=== PATIENT | female | born 1970 | race Caucasian/White ===

== ENCOUNTER → 2017-10-14 09:25 | Outpatient (CLI) | payer OTHER, MEDICAID, SELFPAY ==
[2017-10-10 12:55] VITALS: BMI 34.3
--- NOTE | 2017-10-14 09:00 | PET_ITS ---
EXAMINATION: FDG PET CT INDICATIONS: A 46-year-old female with reported history of head and neck carcinoma presenting for initial staging examination. COMPARISON EXAMINATION: None available. INDEX LESION SIZE SUV INTERPRETATION Posterior aspect oral cavity, pharyngeal mucosal space-hypopharynx 43.3 mm x 22.1 (frame 280) 9.1 Fulfills quantitative criteria for viable neoplasm Right lateral neck level II A-II B 29.9 mm largest (frame 281) 5.3 (max) Fulfills quantitative criteria for viable neoplasm TECHNIQUE: Following the intravenous administration of 16.9 mCi of F-18 deoxyglucose via the right antecubital fossa, multiplanar image acquisitions of the neck, chest, abdomen and pelvis to level of mid thigh, obtained at one hour post radiopharmaceutical administration contemporaneously interpreted with the current CT of the neck, chest, abdomen and pelvis to level of mid thigh, dated 10/14/17 via coregistration reveal: SERUM GLUCOSE LEVEL: 89 mg/dl. HEIGHT: 62 inches. WEIGHT: 187 lbs. FINDINGS: 1. Increased glucose metabolism is defined in the oral cavity contiguous to the tongue base, pharyngeal mucosal space extending caudal to the level of the hypopharynx, vallecula. The calculated maximum standard uptake value is 9.1. The maximal axial diameter of corresponding metabolic, morphologic abnormality on review of CT of the head and neck dated 10/14/17 is 43.3 mm (transverse) x 22.1 (AP). 2. Asymmetric increased glucose concentration is observed in the right lateral neck involving level II A-II B. The calculated maximum standard uptake value is 5.3. A component of central photopenia is noted consistent with necrotic change. The maximal axial diameter of the largest metabolic, morphologic abnormality on review of CT of the neck dated 10/14/17 is 29.9 mm (AP). 3. Normal physiologic distribution of the radiopharmaceutical is apparent in the hepatic (3.4) and splenic parenchyma, both renal units, bladder and visualized intestinal tract. There is uniform distribution of the radiopharmaceutical concentration compared on the cerebellar hemispheres and cerebral cortex. Diffuse intestinal tract activity is noted throughout all four quadrants of the abdominal-pelvic retroperitoneum, mesentery consistent with normal physiologic distribution of the radiopharmaceutical. Pertinent CT findings are as follows. CHEST: Bilateral subcentimeter axillary soft tissue densities with fatty hilus formation are non-glucose avid. There are no parenchymal densities-nodules demonstrated in the right-left hemithorax manifesting quantitatively significant increased glucose metabolism. ABDOMEN AND PELVIS: The gallbladder is surgically absent. Right-left inguinal soft tissue densities with fatty hilus formation are ametabolic. The uterus appears surgically absent. Colonic diverticulosis is defined. SKELETAL: Degenerative changes defined in the cervical, thoracic and lumbar spine demonstrate no evidence for glucose hypermetabolism. PET/PET/CT Tumor Base -Thigh Init IMPRESSION: 1. ABNORMAL EXAMINATION INDICATIVE OF MALIGNANT VIABLE NEOPLASM. 2. Increased glucose concentration defined in the posterior aspect of the oral cavity, the pharyngeal mucosal space, tongue base extending to the hypopharynx fulfills quantitative criteria for viable neoplasm. 3. Enhanced glucose concentration observed in the right lateral neck fulfills quantitative criteria for viable neoplasm. 4. No other quantitatively significant hypermetabolic abnormalities are noted. There is no definitive scintigraphic evidence of distant metastatic disease. Electronic Signature Pedro Luis Carrizales D.O. Electronically Signed: Pedro Luis Carrizales DO at 23:17 EDT Tel , Service support ,
== END ==
PROVIDERS: Family Provider Family Medicine; PCP Family Medicine; Visit Provider Internal Medicine Hematology & Oncology
DX: C01 Malignant neoplasm of base of tongue (principal); C77.9 Secondary and unspecified malignant neoplasm of lymph node, unspecified
CPT/HCPCS: 36415; 77280; 77290; 77300; 77301; 77338; 78815; 80053; 85025; A9552; Q9967; A4216

== ENCOUNTER 2017-10-18 11:13 | Day surgery (SDC) | payer OTHER, MEDICAID, SELFPAY ==
[2017-10-10 12:55] VITALS: BMI 34.3
[2017-10-18] VITALS (10 sets, daily range): BP systolic 86–103; BP diastolic 44–72; PULSE 65–76; RESP 16; TEMP 36.2–36.6; O2SAT 97–98; BMI 34.4
[2017-10-18] MEDS: Cefazolin 2 GM in 0.9% Normal Saline 100 ML IV (12:55)
[2017-10-18] MEDS: Bupivacaine Mpf 0.5% 30 ML VIAL (13:10)
--- NOTE | 2017-10-18 14:12 | RAD_ITS ---
STUDY: X-RAY CHEST REASON FOR EXAM: Female, 47 years old. Port placement. TECHNIQUE: Single AP portable view of the chest. COMPARISON: None. FINDINGS: A left-sided portacatheter has been placed. Tip is at the midportion of the superior vena cava. EKG electrodes are seen. The lungs are clear and expanded. There is no demonstrated pleural abnormality. Normal size heart. Normal mediastinum and kaveh. Normal visualized pulmonary arteries. Normal visualized aortic arch and descending thoracic aorta. Normal visualized thoracic spine. Normal visualized ribs, clavicles, and shoulders. There is no demonstrated abnormality of the visualized soft tissue structures of the upper abdomen. RAD/CXR for Line Placement IMPRESSION: The tip of the left portacatheter is in the midportion of the superior vena cava. There is no evidence of pneumothorax. Electronically Signed: Ricky Martell MD at 15:18 EDT Tel [phone], Service support ,
--- NOTE | 2017-10-18 14:58 | PCM.OPRPT ---
Problem List (1) Encounter for adjustment or management of vascular access device Status: Acute (2) Tongue cancer Status: Acute Comment: HPV + Report of Operation Date of Procedure: 10/18/17 Pre-Operative Diagnosis: Need for vascular access for chemotherapy Post-Operative Diagnosis: Same Surgery/Procedure Performed:: Left chest port placement utilizing left IJ, ultrasound and fluoroscopy-guided Description of Procedure: After obtaining informed consent patient was brought back to the operating room MAC anesthesia was induced and the left chest and neck were prepped in normal sterile fashion. Ultrasound was used to evaluate both IJ is in the left IJ was selected. Next, using a needle, the left IJ was accessed and a guidewire was passed on into the superior vena cava under fluoroscopy guidance. A small incision was made over the puncture site and the dilator introducer was placed over the guidewire. Next this was capped and the pocket was made for the port. 1% lidocaine with epinephrine was injected in the proposed port site. An incision was made with scalpel. Electrocautery was used to make a pocket under the skin and subcutaneous tissue. Hemostasis was obtained. Next, the catheter was tunneled up to the neck incision site and placed through the introducer. The peel-away introducer was removed and the position of the catheter was confirmed on fluoroscopy. Next, the catheter was trimmed and attached to the port with the locking device. Interrupted 2-0 PDS were used to anchor the port to the chest wall and then the port was placed inside the pocket. The pocket was then flushed with saline and the port irrigated with saline. There was good blood return and the port flushed easily. Next, heparin was injected into the port. The skin was closed with subcutaneous interrupted 3-0 Vicryl sutures and interrupted skin 3-0 nylon sutures. A single 3-0 Vicryl sutures placed under the skin at the neck incision site. Steri-Strips were placed as well as op sites. Patient tolerated procedure well, was taken to PACU in stable condition. Chest x-ray will be obtained. Grafts/Implants Used: 8 [place] [employer] - Admit VTE Documentation VTE Mechan Device Prophylaxis: SCD's
--- NOTE | 2017-10-18 15:01 | DCINST_ITS ---
Discharge Diet: No Restrictions - Pain medication may cause nausea. You should typically eat light foods as you take your pain medication. Discharge Activity: Return to Normal Activity, May Shower - with your bandage in place in 1-2 days after surgery. DO NOT SHOWER WHEN YOUR PORT IS ACCESSED. Call your doctor if your incision/area has: Continuous Slow Oozing, Sudden Increased Bleeding, Increased Pain/ Swelling, Increased Redness Call your doctor if you observe: Fever of 101 or Higher Remove Dressing in (days):: 3 - When you remove the bandage, leave the steri- strips intact until they fall off. Allergies/Adverse Reactions: Allergies No Known Allergies Allergy (Verified 10/18/17 11:37) Medications to take at Discharge Levothyroxine [Synthroid] 50 mcg PO DAILY 10/07/17 Varenicline [Chantix] 1 mg PO DAILY 10/07/17 Dexamethasone 4 mg PO DAILY 10 Days #10 tablet 10/14/17 Olanzapine [Zyprexa] 10 mg PO DAILY 15 Days #15 tab 10/14/17 Primary Care Physician: David Abbott [Primary Care Provider] - Please Follow Up With: Judd Concepcion MD When: Please call to schedule 7-10 day follow up appointment. [phone]
== END 2017-10-18 15:26 | disposition home or self-care (01) ==
LOC: SDC 11:15 → AC 11:17
PROVIDERS: Family Provider Family Medicine; PCP Family Medicine; Visit Provider Surgery
PROC: (CPT 36561; principal; 2017-10-18 12:45)
DX: Z45.2 Encounter for adjustment and management of vascular access device (principal); C01 Malignant neoplasm of base of tongue; R22.1 Localized swelling, mass and lump, neck; E06.9 Thyroiditis, unspecified; Z93.1 Gastrostomy status; Z79.899 Other long term (current) drug therapy; Z87.891 Personal history of nicotine dependence
CPT/HCPCS: 00532; 36561; 71045; 77001; J7120; C1788; J2405

== ENCOUNTER 2017-10-24 13:40 | Outpatient (RCR) | payer OTHER, MEDICAID, SELFPAY ==
[2017-10-10 12:55] VITALS: BMI 34.3
== END 2017-10-24 23:59 ==
LOC: NS 13:40
PROVIDERS: Family Provider Family Medicine; PCP Family Medicine; Visit Provider Internal Medicine Hematology & Oncology
DX: C02.9 Malignant neoplasm of tongue, unspecified (principal); Z43.1 Encounter for attention to gastrostomy; Z71.3 Dietary counseling and surveillance
CPT/HCPCS: 97802

== ENCOUNTER 2017-11-15 10:54 | Outpatient (RCR) | payer MEDICAID, OTHER, SELFPAY ==
[2017-10-10 12:55] VITALS: BMI 34.3
== END 2017-11-23 23:59 ==
LOC: NS 10:54
PROVIDERS: Family Provider Family Medicine; PCP Family Medicine; Visit Provider Internal Medicine Hematology & Oncology
DX: C02.9 Malignant neoplasm of tongue, unspecified (principal); Z43.1 Encounter for attention to gastrostomy; Z71.3 Dietary counseling and surveillance
CPT/HCPCS: 97803

== ENCOUNTER 2017-12-20 11:00 | Outpatient (RCR) | payer OTHER, MEDICAID, SELFPAY ==
[2017-10-10 12:55] VITALS: BMI 34.3
== END 2017-12-24 23:59 | disposition home or self-care (01) ==
LOC: NS 11:00
PROVIDERS: Family Provider Family Medicine; PCP Family Medicine; Visit Provider Internal Medicine Hematology & Oncology
DX: C02.9 Malignant neoplasm of tongue, unspecified (principal); Z43.1 Encounter for attention to gastrostomy; Z71.3 Dietary counseling and surveillance
CPT/HCPCS: 77336; 77386; 97803

== ENCOUNTER 2018-01-17 10:00 | Outpatient (RCR) | payer OTHER, MEDICAID, SELFPAY ==
[2017-10-10 12:55] VITALS: BMI 34.3
== END 2018-01-17 11:22 ==
LOC: NS 10:00
PROVIDERS: Family Provider Family Medicine; PCP Family Medicine; Visit Provider Internal Medicine Hematology & Oncology
DX: C02.9 Malignant neoplasm of tongue, unspecified (principal); Z43.1 Encounter for attention to gastrostomy; Z71.3 Dietary counseling and surveillance
CPT/HCPCS: 97803

== ENCOUNTER → 2018-05-21 12:50 | Outpatient (CLI) | payer MEDICAID, SELFPAY ==
[2017-10-10 12:55] VITALS: BMI 34.3
[2018-04-09 15:08] VITALS: BMI 30.1
--- NOTE | 2018-05-21 12:45 | SP.MBSS_ITS ---
PRIMARY / SECONDARY DIAGNOSIS: dysphagia (R13.10) REFERRING PHYSICIAN: Dr. 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 every 3 weeks, switched to weekly carboplatin and paclitaxel for cycle 2 due to tinnitus). 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 This study was recorded in the lateral view and images were sent to PACs for storage. The following consistencies were presented to this patient for analysis of oropharyngeal swallow function: thin liquids, pudding, and a regular textured, Michelle Doone cookie. Results of the MBS are as follows: PENETRATION / ASPIRATION SCALE (GAVIRIA): 1 = does not enter airway 2 = enters airway/above vocal folds/ejected 3 = enters airway/above vocal folds/not ejected 4 = enters airway/contacts vocal folds/ejected 5 = enters airway/contacts vocal folds/not ejected 6 = enters airway/below vocal folds/ejected 7 = enters airway/below vocal folds/not ejected despite effort 8 = enters airway/below vocal folds/no effort PENETRATION / ASPIRATION SCALE (SCORE) WITH VIDEOFLOROSCOPIC SCALE SCORE: Thin liquid - 5 mL tsp.: 1 Thin liquids via cup (single sip): 1 Thin liquids via cup (single sip): 1 Thin liquids via cup (single sip): 1 Thin liquids via straw (single sip): 1 Thin liquids via straw (sequential swallows): 4 Pudding via spoon: 1 Regular textured cookie: 1 Thin liquids via straw (single sip chaser): 1 Thin liquids via straw (single sip chaser): 1 Thin liquids via straw (single sip chaser): 1 Thin liquids via straw (single sip): 1 IMPRESSION: DIAGNOSIS: mild oropharyngeal dysphagia (R13.12) Dysphagia Severity Ratings Scale: 2 (mild) DIGEST Grade: 1 DIGEST Safety Grade: 0 DIGEST Efficiency Grade: 1 ORAL PHASE CHARACTERIZED BY: LABIAL SEAL: no labial escape TONGUE CONTROL DURING BOLUS MANIPULATION: cohesive bolus between tongue to palatal seal BOLUS PREPARATION / MASTICATION: slow prolonged chewing/mashing with complete recollection BOLUS TRANSPORT / LINGUAL MOTION: brisk tongue motion ORAL RESIDUE: trace residue lining oral structures PHARYNGEAL PHASE CHARACTERIZED BY: INITIATION OF PHARYNGEAL SWALLOW: bolus head at posterior laryngeal surface of epiglottis at first hyoid excursion SOFT PALATE ELEVATION: trace column of contrast/air between soft palate and pharyngeal wall LARYNGEAL ELEVATION: partial superior movement of thyroid cartilage/partial approximation of arytenoids cartilage to epiglottic petiole ANTERIOR HYOID EXCURSION: partial anterior movement EPIGLOTTIC MOVEMENT: partial epiglottic inversion LARYNGEAL VESTIBULE CLOSURE AT HEIGHT OF SWALLOW: complete laryngeal vestibule closure with no air/contrast in laryngeal vestibule PHARYNGEAL STRIPPING WAVE: pharyngeal stripping wave present / diminished PHARYNGOESOPHAGEAL SEGMENT OPENING: partial distension and partial duration; partial obstruction of flow TONGUE BASE RETRACTION: narrow column of contrast between tongue base and posterior pharyngeal wall PHARYNGEAL RESIDUE: collection of residue within or on pharyngeal structures ESOPHAGEAL PHASE CHARACTERIZED BY: ESOPHAGEAL BOLUS CLEARANCE IN THE UPRIGHT POSITION: complete clearance; esophageal coating EFFECTS OF TREATMENT STRATEGIES ATTEMPTED: Liquid chaser = effective Reduced bolus size = effective Reduced rate of intake = effective DIET TEXTURE RECOMMENDATIONS: Will recommend a regular / soft textured, thin liquid diet. COMPENSATORY STRATEGIES RECOMMENDED: Reduced bolus volume, reduced rate of intake, moisture with all solid textures, alternate bites and sips at reasonable intervals, seated upright at 90 degrees during PO intake, remain upright for 30-60 minutes post meal (GERD precaution), medications one at a time with liquid chaser. 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 Oral preparatory phase marked by prolonged mastication associated with edentulous status and reported intraoral pain attributed to suspected ulcerations; adequate bolus containment. Oral transitional phase was overall unremarkable, with sufficient bolus collection and transportation, no issues with posterior bolus loss / containment. Pharyngeal phase marked by mild to moderate impairments in pharyngeal swallow onset timing / synchrony coupled with mild reductions in laryngeal vestibule closure and pharyngeal motility contributing to prandial penetration with ejection during sequential ingestion of thin liquids; noted velopharyngeal insufficiency with contrast nearing the nasal cavity. All deficits ameliorated with bolus volume / rate adjustments. RECOMMENDATIONS: The Patient is at higher risk for continual changes and possible decline swallow functioning post chemoradiation. Would consider annual re-assessments under fluoroscopy with similar standardized interpretive measures to assess for continual post irradiation changes to the swallow mechanism, with therapeutic and dietary adjustments as clinically indicated. The Patient requires continued skilled speech-language intervention targeting diet texture management and training / implementation of recommended compensatory strategies; training and implementation of a home based swallowing exercise program to promote the highest level of preserved post-irradiation swallow functioning; training and implementation of a home oral care protocol to reduce the effects of xerostomia and improve / maintain the integrity of the oral mucosa reducing the risk of aspiration related pulmonary complications; and Patient / caregiver education regarding kiah and post-irradiation dysphagia and associated symptomology. ADDITIONAL COMMENTS/RECOMMENDATIONS: Results and recommendations were discussed with the Patient immediately following MBS completion, with the Patient verbalizing understanding and agreement with all recommendations and education provided. IMAGE COUNT: [id number] G-CODES: SWALLOWING [id number] Current Status: CJ SWALLOWING G8997 Goal Status: CI SWALLOWING G8998 Discharge Status: SHANTANU Andersen M.A., [facility]-[employer] DES[employer] [facility] Speech-Language Pathology Department [email or web address]
--- NOTE | 2018-05-21 12:52 | RAD_ITS ---
STUDY: SWALLOWING STUDY REASON FOR EXAM: Female, 47 years old. TECHNIQUE: The examination was performed with Speech Pathology in attendance. Under fluoroscopic observation, the patient ingested thin barium, thick barium, barium pudding, and barium coated cracker. FLUOROSCOPY TIME: 1:39 minutes/seconds RADIOLOGIST INVOLVEMENT: COMPARISON: None. FINDINGS: Trialed thin Liquids, pudding, regular textures. Transient penetration with sequential swallows of thin liquids and evaluated with bolus volume/rate reduction. No further penetration or aspiration noted. comment by Scott Casey [phone] personal cell:[phone] RAD/Swallowing Function w/Video IMPRESSION: Normal tailored barium swallow study. No evidence of increased risk for aspiration. The swallow study findings were discussed with the patient by the speech pathologist at the conclusion of the examination. Please see speech pathology report for more information and recommendations. Electronically Signed: Yves Jaramillo, at 16:47 EST Tel , Service support ,
== END ==
PROVIDERS: Family Provider Family Medicine; PCP Family Medicine; Referring Provider Student in an Organized Health Care Education/Training Program; Visit Provider Student in an Organized Health Care Education/Training Program
DX: R13.12 Dysphagia, oropharyngeal phase (principal); C02.9 Malignant neoplasm of tongue, unspecified
CPT/HCPCS: 74230; 92610; 92611

== ENCOUNTER 2018-07-09 14:00 | Outpatient (RCR) | payer MEDICAID, SELFPAY ==
[2017-10-10 12:55] VITALS: BMI 34.3
[2018-04-09 15:08] VITALS: BMI 30.1
--- NOTE | 2018-05-21 14:15 | SOAP_ITS ---
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 every 3 weeks, switched to weekly carboplatin and paclitaxel for cycle 2 due to tinnitus). The Patient reports initial weight loss ( weight 190lbs; 01/17/2018 weight 177.6lbs, 04/09/2018 weight 164 lbs.; 7.5% loss since December, ~14% loss overall per records), with the Patient initially depending on alternative supplementation via percutaneous endoscopic gastrostomy (PEG) tube (placed 10/04/2017; since removed) and PO caloric supplementation. She reports persistent hypogeusia / dysgeusia (Scale of Subjective Total Taste Acuity Grade I-II), with improving xerostomia (Grade I per RTOG Radiation Morbidity Scoring Criteria). The Patient reports increasing intraoral pain particularly towards the posterior portions of the oral cavity with suspected ulcerations that are currently at a 10/10 pain scale, reports she has not contacted the physician?s office due to her holiday schedule / anticipated physician?s office schedule; she reports dedicated oral care with oral rinses as recommended. Odynophagia has almost completely resolved, with occasional tolerable pain (no further specification). No changes in appetite reported, denies early satiety, nausea, or bouts of emesis. The Patient denies any coughing or throat clearing during PO intake, though does report intermittent coughing with phlegm production aside from PO intake, with intermittent sensations of food getting ?stuck?, though this improves with a liquid wash. The Patient later reports intermittent rhinorrhea during / following intake with occasional sensations of nasoregurgitation. 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 The Patient appears cognitively intact, with no reported cognitive based complications (does report mild impairments during chemotherapy interventions which have subsided as expected). The Patient?s vocal quality is clearly impaired, with the Patient reporting almost complete aphonia particularly upon waking which somewhat improves throughout the day; overall the Patient reports reductions in vocal quality post irradiation. PREVIOUS MODIFIED BARIUM SWALLOW STUDY: 05/21/2018 MBS revealed mild oropharyngeal dysphagia (DIGEST Grade 1) with transient penetration of thin liquids during sequential ingestion. 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 Edentulous status, reports no prior use of dentures. Oral mucosa moist pinkish appearance with reported persistent xerostomia. Slight whitish coating along the lingual blade with reported right lingual pain, small painful ulceration on the left mandibular arch, questionable left sublingual ulceration (reported significant pain at location). Mild reduction in cough intensity. Horse / breathy vocal quality with alternating aphonia / dysphonia with tension. SUPPLEMENTARY DYSPHAGIA ASSESSMENT RESULTS: Malnutrition Screening Tool (MST): 2 (at risk) Reflux Symptom Index (RSI): 28 (RSI > 13 may be indicative of significant reflux) Sialorrhea Scoring Scale (SSS): 1/9 (dry, never drools) [facility] Xerostomia Questionnaire: 68/80* Functional Assessment of Cancer Therapy ? Head & Neck (FACT H&N): 84* Physical Well-Bein Social / Family Well- Bein Emotional Well-Bein Functional Well-Bein Additional Concerns: 22 Functional Assessment of Cancer Therapy ? Cognitive Function (FACT-Cog): 35* Perceived Cognitive Impairments: 17 Comments from Others: 4 Perceived Cognitive Abilities: 8 Impact on Quality of Life: 6 MD Terell Dysphagia Inventory (MDADI): Global: 62/100* Physical: 24/40 Emotional: 19/30 Functional: 19/25 *higher scores represent greater degree of symptoms CLINICAL ASSESSMENT OF SWALLOW FUNCTION (STRUCTURED): Total Dysphagia Risk Score (TDRS): 34 ? High risk (TDRS > 18) Venegas Assessment of Swallowing Ability ? Cancer (MASA-C): 168 (Moderate) Venegas Assessment of Swallowing Ability ? Cancer (MASA-C) Risk Rating: Probable Performance Status Scale for Head and Neck Cancer Patients (PSS-HN): 150/300 Normalcy of Diet: 50 (soft, chewable foods) Public Eatin (Eats only at home in presence of selected persons) Understandability of Speech: 75 (Understandable; occasional repetition) Swallowing Performance Scale (PSP): 3 - mild CLINICAL ASSESSMENT OF SWALLOW FUNCTION (SUBJECTIVE): ORAL PREPARATORY PHASE: oral preparatory phase marked by prolonged mastication associated with edentulous status and reported intraoral pain attributed to suspected ulcerations; adequate bolus containment. ORAL TRANSITIONAL PHASE: oral transitional phase appears unremarkable; no signs of bolus consolidation impairments or transitional incompetence; no signs or symptoms of premature posterior bolus loss. PHARYNGEAL PHASE: pharyngeal phase marked by mild reduction in reduced hyolaryngeal excursion upon digital palpation suggestive of suboptimal laryngeal vestibule closure / pressure / duration; reported intermittent nasal reflux (not during assessment) with intermittent rhinorrhea during ingestion; no overt signs or symptoms of penetration / aspiration. ESOPHAGEAL PHASE: esophageal phase appears unremarkable, though noted high RSI score reported (28) COMPLICATING FACTORS: the Patient reports intermittent aerophagia, though this may be associated with mild velopharyngeal insufficiency with intermittent nasoregurgitation identified under fluoroscopy. 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 RECOMMENDATIONS: The patient is at higher risk for continual changes and possible decline swallow functioning post chemoradiation. Would consider annual re-assessments under fluoroscopy with similar standardized interpretive measures to assess for continual post irradiation changes to the swallow mechanism, with therapeutic and dietary adjustments as clinically indicated. The Patient requires continued skilled speech-language intervention targeting diet texture management and training / implementation of recommended compensatory strategies; training and implementation of a home based swallowing exercise program to promote the highest level of preserved post-irradiation swallow functioning; training and implementation of a home oral care protocol to reduce the effects of xerostomia and improve / maintain the integrity of the oral mucosa reducing the risk of aspiration related pulmonary complications; and Patient / caregiver education regarding kiah and post-irradiation dysphagia and associated symptomology. DIET TEXTURE RECOMMENDATIONS: Will recommend a regular / soft textured, thin liquid diet w/ the following recommended aspiration precautions in place: reduced bolus volume, reduced rate of intake, moisture with all solid textures, alternate bites and sips at reasonable intervals, seated upright at 90 degrees during PO intake, remain upright for 30-60 minutes post meal (GERD precaution), medications one at a time with liquid chaser. FUNCTIONAL OUTCOMES: OUTCOME 1: The Patient will tolerate the least restrictive means of nutrition to facilitate adequate hydration/nutrition with optimum safety and efficiency of swallowing function during P.O. intake without overt signs and symptoms of aspiration. OUTCOME 2: The Patient will demonstrate and utilize recommended compensatory swallowing techniques to facilitate improved airway protection and decreased risk for aspiration during PO intake, across 2 out of 3 sessions. OUTCOME 3: The Patient will demonstrate and utilize recommended oropharyngeal strengthening exercises to facilitate improved pharyngeal contraction, hyolaryngeal excursion, laryngeal vestibule closure, and velopharyngeal functioning with minimal cueing and prompting provide by the clinician, across 2 out of 3 sessions. OUTCOME 4: goal adjustment as needed G-CODES: SWALLOWING G8996 Current Status: CJ SWALLOWING G8997 Goal Status: EMELIA Andersen M.A., CCC-GLAZE SPRAYER [facility] Speech-Language Pathology Department [email or web address]
--- NOTE | 2018-07-09 16:34 | HP.SP.DC_ITS ---
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 The Patient participated in a modified barium swallow (MBS) study on 05/21/2018, revealing mild oropharyngeal dysphagia (DIGEST Grade 1) with transient penetration of thin liquids during sequential ingestion. The Patient participated in intervention sessions targeting diet texture management and training / implementation of recommended compensatory strategies; training and implementation of a home based swallowing exercise program to promote the highest level of preserved post-irradiation swallow functioning; training and implementation of a home oral care protocol to reduce the effects of xerostomia and improve / maintain the integrity of the oral mucosa reducing the risk of aspiration related pulmonary complications; and Patient / caregiver education regarding kiah and post-irradiation dysphagia and associated symptomology, with all goals achieved. The Patient has returned to a regular textured, thin liquid diet and is currently consuming more complex solids. The Patient has consistently reported excellent adherence to recommended oropharyngeal and velopharyngeal exercises, completing all 3-5x daily, x10-15 each, with excellent comprehension and execution demonstrated in the clinical setting. The Patient has reported intermittent difficulty with attention / working memory; though t his has improved, with limited to no impact on functioning. Would consider the Patient to be at higher risk for continual changes and possible decline in swallow functioning / dysphagia severity post irradiation (late effects of radiation fibrosis can occur upwards of 40 years post treatment); would benefit from continual monitoring and yearly follow up modified barium swallow studies for at least 5 years post irradiation. Will discharge from the skilled speech- language intervention caseload at this time, though would gladly re-initiate intervention as needed moving forward.
--- OUTSIDE RECORDS SUMMARY | 2018-08-20 12:55 | XMS RPT_ITS | Summary of Care ---
:1970 Author Organization [facility] Address [address] [place] [address] Care Team Providers Name Role Phone David Abbott MD Primary Care Provider Kenneth Gaitan MD Unavailable Reason for Visit Reason Comments Hypothyroidism last radiation and chemo treatment in November to throat, no energy always col Restless Leg Syndrome having difficulty sleeping at night Encounter Details Date Type Department Care Team Description 03/11/2018 Office Visit [facility] Primary Kirstie Hines Hypothyroidism (acquired) (Primary Dx); Care Physicians RICCARDO Summers Mass of right side of neck [address] [place] [phone] Allergies No Known Allergiesas of this encounter Medications Prescription Sig. Disp. Refills Start Date End Date Status levothyroxine Take 1 (one) 30 tablet 5 03/05/2018 03/05/2019 Active (SYNTHROID, tablet (50 LEVOTHROID) 50 MCG mcg total) by tabletIndications: mouth once Hypothyroidism daily. (acquired) amoxicillin-clavulan Take 1 tablet 03/11/2018 Discontinued ate (AUGMENTIN) by mouth 3 500-125 mg per (three) times tabletIndications: a day. Mass of right side of neck L acidophil/B Take 1 03/11/2018 Discontinued lactis/B longum capsule by (FLORAJEN3 mouth daily. ORAL)Indications: Mass of right side of neck dexamethasone Take 4 mg by 03/11/2018 Discontinued (DECADRON) 4 MG mouth daily tabletIndications: with for 10 days breakfast. OLANZapine (ZYPREXA) Take 10 mg by 03/11/2018 Discontinued 10 MG mouth tabletIndications: nightly. 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 Recommend making an appointment with Dr. Abbott or myself in a week or two to discuss all of your health issues further. Did not have opportunity to review chart or your history. Mass of right side of neck 09/18/2017 Overview: Necrotic adenopathy biopsied Dr. Gaitan 08/2017 Last Assessment & Plan: Will follow up next week when we receive labs and have more time to review everything. You have a lot of things that need addressed, you have not been seen by Dr. Abbott since you finished treatment. Y ou are having issues with anxiety, depression, RLS, fatigue, blood pressure up and down, and cold intolerance. It is best we have a longer apt scheduled to address these issues. Obesity, Class I, BMI 30-34.9 09/18/2017 Last Assessment & Plan: Calorie counting is the basis for all weight loss. Typically weigh or measure everything that you place in your mouth. Pay attention to those things that you think are free. Include the calories asso ciated with anything you drink as well. Most that you can buy is required by law to have information on it which breaks down the caloric values for serving size. Look at the serving size and then the weight or measure of that serving size is how you calculate the calories. Try to get over half of your daily calories in the first half of the day Need to find the time for exercise. Activity is great but exercise is activity with a heart rate into the target Zone. Consider calorie counting. But weight loss is minimal without exercise since th e body with turn down the BMI or thermostat over time. Exercise allows you to see the benefit of calorie control. Maximum Heart rate or MHR is defined by 220 - age. Then target heart rate or THR is 65-85% of MHR. Need to allow warmup slowly over 5- 10 minute to prevent going too fast to reach THR. Then exercise interval at THR and allow cool down until at least senior care back to the pre exercise hear rate. Therefor if resting heart rate was 70 and your target heart rate was 120. You need to keep moving and wo rk the muscles until you heart rate is below 95 beats per minute. This reduces cramping and the risk of cardiac irritability post exercise. Most weight loss can be obtained best by cycling your calories. By counting the calories and then setting your intake at the minimum needs to maintain your lean body mass you conventional body not to t urn down its basal metabolic rate. 80% or more of your total caloric needs are burned due to your basic metabolic rate. So tell your body that you are are dieting and allowing it to turn down your bas al metabolic rate sabotages your ability to lose weight. The way to do this and still lose weight his first start a diet at your minimum needs calculated by year estimated lean body mass. Then the fir st 4 days of every week set your caloric intake to 300-400 gail per day less. The last 3 days of the week your back to the minimum. This will stop your body from turning down the basal metabolic rate. More than 4 days below the basic minium will have your body trending down how you burn calories. 3500 gail equals 1 pound and 150 gail over 30 days below your needs will result in 1-1/2 pounds per month of weight loss or almost 20 pounds per year. Depression with anxiety IBS (irritable bowel syndrome) Nicotine dependence Last Assessment & Plan: Since chantrix has been effective prior will write for a refill. Social History Tobacco Use Types Packs/Day Years Used Date Former Smoker 1 Smokeless Tobacco: Never Used Alcohol Use Drinks/Week oz/Week Comments Yes Whiskey, occasionally Sex Assigned at Date Recorded Not on file as of this encounter Last Filed Vital Signs Vital Sign Reading Time Taken Blood Pressure 89/62 03/11/2018 2:35 PM EDT Pulse 73 03/11/2018 2:35 PM EDT Temperature 36.8 ??C (98.2 ??F) 03/11/2018 2:35 PM EDT Respiratory Rate 18 03/11/2018 2:35 PM EDT Oxygen Saturation 98% 03/11/2018 2:35 PM EDT Inhaled Oxygen Concentration - - Weight 76.2 kg (168 lb) 03/11/2018 2:35 PM EDT Height 157.5 cm (5' 2) 03/11/2018 2:35 PM EDT Body Mass Index 30.73 03/11/2018 2:35 PM EDT in this encounter Instructions Patient Instructions - Kirstie Hines CNP - 03/11/2018 3:05 PM EDT Formatting of this note may be different from the original. Problem List Items Addressed This Visit Endocrine Hypothyroidism (acquired) - Primary Will order a TSH to see what your thyroid function is and we can refill your medication depending on the results. Recommend making an appointment with Dr. Abbott or myself in a week or two to discussall of your health issues further. Did not have opportunity to review chart or your history. Other Mass of right side of neck Will follow up next week when we receive labs and have more time to review everything. You have alot of things that need addressed, you have not been seen by Dr. Abbott since you finished treatment. You are having issues with anxiety, depression, RLS, fatigue, blood pressure up and down, and cold intolerance. It is best we have a longer apt scheduled to address these issues. in this encounter Progress Notes Kirstie Hines CNP - 03/13/2018 11:29 AM EDTFormatting of this note may be different from the original. Subjective Patient ID: Shahnaz Garnett is a 47 y.o. female. Patient scheduled a MyChart 15 minute visit from home to address her thyroid labs. (showed up on schedule 10 minutes before visit, did not get opportunity to review chart). [place] wanted an order to also have her thyroid levels checked while she was there getting blood drawn. She is not seeing an surfacer for her thyroid management, unsure if she should see a specialist since she has now received neck radiation. While here she states she has also been having problems with an increase in RLS that is keeping her up at night. She finished treatment for tongue CA in November, she received chemo and radiation. Duringthe visit it is obvious she is continuing to have problems speaking and swallowing. She states her feeding tube has been removed and she is slowly starting to eat foods. She states the biggest thing her [place] physician's are monitoring at this time is the sores in her mouth that do not want to heal postradiation. Patient does get tearful while talking about her treatments. She states this really screwed me up and it has been a lot to deal with, she states at times it does not feel real and she is struggling with anxiety and depression. She is also concerned about when she is supposed to go backto work, she has applied for social security and should be getting disability in April. She states her job is bugging her about coming back, she is unsure if she will work again. She is still veryfatigued and is having issues with cold intolerance. The following portions of the patient's history were reviewed and updated as appropriate: allergies,current medications, past family history, past medical history, past social history, past surgical history and problem list. Review of Systems Constitutional: Positive for activity change, appetite change and fatigue. Negative for unexpected weight change. HENT: Positive for mouth sores, trouble swallowing and voice change. Negative for dental problem, facial swelling, sinus pain and sinus pressure. No teeth or dentures Significant scaring to right side of neck from mass removal and radiation to area Eyes: Negative for photophobia and visual disturbance. Respiratory: Negative for cough, chest tightness, shortness of breath and wheezing. Has completely stopped smoking Cardiovascular: Negative for chest pain and palpitations. Gastrointestinal: Negative for abdominal pain, constipation, diarrhea, nausea and vomiting. Endocrine: Positive for cold intolerance. Negative for heat intolerance. Genitourinary: Negative for dysuria, hematuria and urgency. Musculoskeletal: Positive for myalgias, neck pain and neck stiffness. Negative for arthralgias. Skin: Negative. Sallow look to skin Scar to right side of neck Allergic/Immunologic: Positive for immunocompromised state. Neurological: Negative for dizziness, light-headedness and headaches. Psychiatric/Behavioral: Positive for dysphoric mood and sleep disturbance. The patient is nervous/anxious. Objective Physical Exam Constitutional: Vital signs are normal. She appears well-developed and well- nourished. She appears ill. Sallow appearance HENT: Head: Normocephalic. Right Ear: Tympanic membrane and external ear normal. Left Ear: Tympanic membrane and external ear normal. Nose: No mucosal edema or rhinorrhea. Right sinus exhibits no maxillary sinus tenderness and no frontal sinus tenderness. Left sinus exhibits no maxillary sinus tenderness and no frontal sinus tenderness. Mouth/Throat: Uvula is midline and oropharynx is clear and moist. No teeth or dentures Eyes: Pupils are equal, round, and reactive to light. Conjunctivae, EOM and lids are normal. Neck: Trachea normal, normal range of motion and full passive range of motion without pain. Neck supple. Significant scarring to right side of neck, discolored from radiation treatments a few months ago Cardiovascular: Normal rate, regular rhythm, normal heart sounds and normal pulses. No murmur heard. Pulmonary/Chest: Effort normal. She has no decreased breath sounds. She has no wheezes. She has no rhonchi. She has no rales. Abdominal: Soft. Normal appearance and bowel sounds are normal. There is no tenderness. There is no CVA tenderness. No hernia. Neurological: She is alert. She has normal strength. No cranial nerve deficit. She displays a negative Romberg sign. Skin: Skin is warm, dry and intact. No rash noted. Psychiatric: She has a normal mood and affect. Her speech is normal and behavior is normal. Thought content normal. Very pleasant but tearful at times Vitals: 03/11/18 1435 BP: (!) 89/62 BP Location: Left arm Patient Position: Sitting BP Cuff Size: Adult Pulse: 73 Resp: 18 Temp: 98.2 ??F (36.8 ??C) TempSrc: Oral SpO2: 98% Weight: 76.2 kg (168 lb) Height: 5' 2 Body mass index is 30.73 kg/m??. Outpatient Prescriptions Marked as Taking for the 03/11/18 encounter (Office Visit) with Kirstie Hines CNP Medication Sig Dispense Refill ??? levothyroxine (SYNTHROID, LEVOTHROID) 50 MCG tablet Take 1 (one) tablet (50 mcg total) by mouth once daily. 30 tablet 5 No Known Allergies Past Medical History: Diagnosis Date ??? Adverse effect of radiation therapy [facility]/Aura Mattson MD ??? Cancer of base of tongue (HCC) Aura Mattson MD ??? Depression with anxiety 2014 Dr. Hammer ??? Educational circumstance [facility]/Bette Luevano ENTERTAINMENT LAW[employer]ER-C ??? Encounter for adjustment or management of vascular access device [facility]/Bette Chloé ENTERTAINMENT LAWYER-C ??? Encounter for insertion of venous access port 10/14/2017 [facility]/Judd Concepcion MD ??? Fatigue [facility]/Judd Concepcion MD ??? IBS (irritable bowel syndrome) 2000 ??? Mucositis [facility]/Aura Mattson MD ??? Nicotine dependence ??? Pain around PEG tube site ( Acute) [facility]- Michelle Gage PA-C ??? Pre-op examination [facility]/Aura Mattson MD ??? Regional lymph node metastasis present (HCC) [facility]-Michelle Sethi PA-C ??? Squamous cell carcinoma 09/28/2017 DL with Biopsy of BOT Mass-Dr Gaitan ??? [facility] ??? Thyroid disease [facility]/Judd Concepcion MD ??? Tinnitus, right ear [facility]/Aura Mattson MD Chemo/XRT ??? Tongue cancer (HCC) [facility]/Bette JOSEPHC ??? Tongue mass 09/23/2017 Dr Gaitan Acute cancer of the base of tongue Past Surgical History: Procedure Laterality Date ??? CHOLECYSTECTOMY [place] ??? ENDOSCOPY TRIPLE 09/23/2017 & 10/04/2017 [facility]/Judd Concepcion MD Tumor mapping ??? EXCISION LESION HEAD/NECK Right 09/16/2017 [facility]/Kenneth Gaitan MD 4cm ??? HYSTERECTOMY 1995 Has one ovary ??? LARYNGOSCOPY W/ LESION EXCISION Right 09/23/2017 Laryngoscopy with Biopsy of right base of tongue mass ??? NODE BIOPSY NECK 09/16/2017 Dr Gaitan ENT ??? PEG TUBE PLACEMENT 10/04/2017 Dr Pascal ??? PORTACATH PLACEMENT ??? TONGUE BIOPSY 09/26/2017 Dr Gaitan- DL with biopsy of BOT Mass ??? VASCULAR SURGERY Left 2017 Port placement-Left Chest - Dr. Concepcion - [place] Assessment/Plan: Problem List Items Addressed This Visit Endocrine Hypothyroidism (acquired) - Primary Will order a TSH to see what your thyroid function is and we can refill your medication depending on the results. Recommend making an appointment with Dr. Abbott or myself in a week or two to discussall of your health issues further. Did not have opportunity to review chart or your history. Other Mass of right side of neck Will follow up next week when we receive labs and have more time to review everything. You have alot of things that need addressed, you have not been seen by Dr. Abbott since you finished treatment. You are having issues with anxiety, depression, RLS, fatigue, blood pressure up and down, and cold intolerance. It is best we have a longer apt scheduled to address these issues. For any new medications prescribed today, patient was educated about indications for the medication,how to take the medication and potential side effects of the medications.in this encounter Miscellaneous Notes Assessment & Plan Note - Kirstie Hines CNP - 03/11/2018 3:06 PM EDT Associated Problem(s): Mass of right side of neckWill follow up next week when we receive labs and have more time to review everything. You have a lot of things that need addressed, you have not been seen by Dr. Abbott since you finished treatment. You are having issues with anxiety, depression, RLS, fatigue, blood pressure up and down, and cold intolerance. It is best we have a longer apt scheduled to address these issues.Assessment & Plan Note - Kirstie Hines CNP - 03/11/2018 3:03 PM EDTAssociated Problem(s): Hypothyroidism (acquired)Will order a TSH to see what your thyroid function is and we can refill your medication depending onthe results. Recommend making an appointment with Dr. Abbott or myself in a week or two to discuss all of your health issues further. Did not have opportunity to review chart or your history.in this encounter Plan of Treatment Upcoming Encounters Date Type Specialty Care Team Description 03/18/2018 Office Visit Primary Care Daivd Abbott MD [address] [place] [address] [phone] Health Maintenance Due Date Last Done Comments PAP SMEAR 1970 SEQUENTIAL INFLUENZA VACCINE (#1) 2018 09/18/2017 (Declined) TETANUS EVERY 10 YR 09/24/2024 09/24/2014 as of this encounter Visit Diagnoses Diagnosis Hypothyroidism (acquired) - Primary Unspecified hypothyroidism Mass of right side of neck
--- OUTSIDE RECORDS SUMMARY | 2018-08-20 12:56 | XMS RPT_ITS ---
:1970 Author Organization OHIP Support Name Relationship Address Phone JEFFERSON MIGUEL Unavailable [address] + [address] [place] [address] HAKEEM METAL Un[address] + [place] [address] SEFFENS, MIGUEL Unavailable [address] + [address] [place] [address] HAKEEM METAL Un[address] + [place] [address] JEFFERSON, RICKY Unavailable Unavailable + TOWER, SARAH BETH Unavailable Unavailable + CLARENCE GALAN Unavailable Unavailable + SEFFENS, MIGUEL Unavailable [address] + [address] [place] [address] HAKEEM METAL Unavailable [address] + [place] [address] CLARENCE GALAN Unavailable Unavailable + SEFFENS, MIGUEL Unavailable [address] + [address] [place] [address] UE Unavailable Unavailable Unavailable SEFFENS, MIGUEL Unavailable [address] + [address] [place] [address] UE Unavailable Unavailable Unavailable SEFFECHILANGO, RICKY Unavailable Unavailable + TOWER, SARAH BETH Unavailable Unavailable + SEFFECHILANGO, RICKY Unavailable Unavailable + TOWER, SARAH BETH Unavailable Unavailable + ANGELIA, CLARENCE Unavailable Unavailable + ANGELIA, CLARENCE Unavailable Unavailable + SEFFENS, MIGUEL Unavailable [address] + [address] [place] [address] UE Unavailable Unavailable Unavailable ANGELIA, CLARENCE Unavailable Unavailable + SEFFENS, RICKY Unavailable Unavailable + TOWERSARAH BETH Unavailable Unavailable + ANGELIA, CLARENCE Unavailable Unavailable + ANGELIA, CLARENCE Unavailable Unavailable + SEFFENS, MIGUEL Unavailable [address] + [address] [place] [address] UE Unavailable Unavailable Unavailable SEFFENS, RICKY Unavailable Unavailable + TOWERSARAH BETH Unavailable Unavailable + SEFFENS, MIGUEL Unavailable [address] + [address] [place] [address] UE Unavailable Unavailable Unavailable SEFFENS, MIGUEL Unavailable [address] + [address] [place] [address] UE Unavailable Unavailable Unavailable SEFFENS, MIGUEL Unavailable [address] + [address] [place] [address] UE Unavailable Unavailable Unavailable SEFFENS, RICKY Unavailable Unavailable + TOWERSARAH BETH Unavailable Unavailable + ANGELIA CLARENCE Unavailable Unavailable + ANGELIA, CLARENCE Unavailable Unavailable + SEFFENS, MIGUEL Unavailable [address] + [address] [place] [address] UE Unavailable Unavailable Unavailable SEFFENS, MIGUEL Unavailable [address] + [address] [place] [address] UE Unavailable Unavailable Unavailable ANGELIA, CLARENCE Unavailable Unavailable + ANGELIA, CLARENCE Unavailable Unavailable + ANGELIA, CLARENCE Unavailable Unavailable + SEFFENS, MIGUEL Unavailable [address] + [address] [place] [address] UE Unavailable Unavailable Unavailable SEFFENS, MIGUEL Unavailable [address] + [address] [place] [address] UE Unavailable Unavailable Unavailable ANGELIA, CLARENCE Unavailable Unavailable + SEFFENS, MIGUEL Unavailable [address] + [address] [place] [address] UE Unavailable Unavailable Unavailable SEFFENS, MIGUEL Unavailable [address] + [address] [place] [address] UE Unavailable Unavailable Unavailable SEFFENS, MIGUEL Unavailable [address] + [address] [place] [address] UE Unavailable Unavailable Unavailable SEFFENS, MIGUEL Unavailable [address] + [address] [place] [address] UE Unavailable Unavailable Unavailable ANGELIA, CLARENCE Unavailable Unavailable + SEFFENS, MIGUEL Unavailable [address] + [address] [place] [address] UE Unavailable Unavailable Unavailable SEFFENS, MIGUEL Unavailable [address] + [address] [place] [address] UE Unavailable Unavailable Unavailable ANGELIA, CLARENCE Unavailable Unavailable + SERICKY ESPAÑA Unavailable Unavailable + VALERIYSARAH BETH PARIKH Unavailable Unavailable + SEFFENS, MIGUEL Unavailable [address] + [address] [place] [address] UE Unavailable Unavailable Unavailable SEFFENS, IMGUEL Unavailable [address] + [address] [place] [address] UE Unavailable Unavailable Unavailable ANGELIA, CLARENCE Unavailable Unavailable + SEFFENS, MIGUEL Unavailable [address] + [address] [place] [address] UE Unavailable Unavailable Unavailable SEFFENS, MIGUEL Unavailable [address] + [address] [place] [address] UE Unavailable Unavailable Unavailable SEFFENS, MIGUEL Unavailable [address] + [address] [place] [address] UE Unavailable Unavailable Unavailable SEFFENS, MIGUEL Unavailable [address] + [address] [place] [address] UE Unavailable Unavailable Unavailable SEFFENS, MIGUEL Unavailable [address] + [address] [place] [address] UE Unavailable Unavailable Unavailable SEFFENS, MIGUEL Unavailable [address] + [address] [place] [address] UE Unavailable Unavailable Unavailable SEFFENS, MIGUEL Unavailable [address] + [address] [place] [address] UE Unavailable Unavailable Unavailable SEFFENS, MIGUEL Unavailable [address] + [address] [place] [address] UE Unavailable Unavailable Unavailable SEFFENS, MIGUEL Unavailable [address] + [address] [place] [address] UE Unavailable Unavailable Unavailable SEFFENS, MIGUEL Unavailable [address] + [address] [place] [address] UE Unavailable Unavailable Unavailable SEFFENS, MIGUEL Unavailable [address] + [address] [place] [address] UE Unavailable Unavailable Unavailable ANGELIA, CLARENCE Unavailable Unavailable + SEFFENS, RICKY Unavailable Unavailable + TOWER, SARAH BETH Unavailable Unavailable + SEFFENS, MIGUEL Unavailable [address] + [address] [place] [address] UE Unavailable Unavailable Unavailable ANGELIA, CLARENCE Unavailable Unavailable + SEFFENS, MIGUEL Unavailable [address] + [address] [place] [address] UE Unavailable Unavailable Unavailable ANGELIA, CLARENCE Unavailable Unavailable + SEFFENS, MIGUEL Unavailable [address] + [address] [place] [address] UE Unavailable Unavailable Unavailable SEFFENS, RICKY Unavailable Unavailable + TOWER, SARAH BETH Unavailable Unavailable + SEFFENS, MIGUEL Unavailable [address] [facility] [address] + [place] [address] HAKEEM METAL Unavailable [address] + [place] [address] SEMIGUEL ESPAÑA Unavailable [address] + [address] [place] [address] HAKEEM METAL Unavailable [facility] [address] + [place] [address] SEMIGUEL ESPAÑA Unavailable [address] + [address] [place] [address] UE Unavailable Unavailable Unavailable SEESPERANZA ESPAÑABUR Unavailable [address] + [address] [place] [address] UE Unavailable Unavailable Unavailable RICKY PAULINO Unavailable Unavailable + TOWSARAH BETH PARIKH Unavailable Unavailable + JEFFERSONRICKY Unavailable Unavailable + TOWSARAH BETH PARIKH Unavailable Unavailable + JEFFERSON RICKY Unavailable Unavailable + SARAH BETH LAMB Unavailable Unavailable + ANGELIA CLARENCE Unavailable Unavailable + VICTORIANO GARNETT Unavailable [address] + [place] [address] NOT GIVEN Unavailable [address] + [place] [address] ANGELIAAPPLEY Unavailable Unavailable + Care Team Providers Name Role Phone Gloria Goode Attending Unavailable Felisa Abbott Primary Care Unavailable Pierce Pascal Attending Unavailable Pierce Pascal Referring Unavailable Pierce Pascal Attending Unavailable Pierce Pascal Referring Unavailable Pierce Pascal Attending Unavailable Pierce Pascal Referring Unavailable Gloria Goode Attending Unavailable Felisa Abbott Primary Care Unavailable Pierre Millan Referring Unavailable Pierce Pascal Attending Unavailable Felisa Abbott Primary Care Unavailable Felisa Abbott Primary Care Unavailable Gloria Goode Attending Unavailable Pierce Pascal Attending Unavailable Gloria Goode Referring Unavailable Felisa Abbott Primary Care Unavailable Gloria Goode Consulting Unavailable Gloria Goode Attending Unavailable Isckarus, Mansour Referring Unavailable Milena, [facility] Primary Care Unavailable Isckarus, Mansour Consulting Unavailable Pierce Pascal Attending Unavailable Isckarus, Mansour Referring Unavailable Milena, Felisa Primary Care Unavailable Isckarus, Mansour Consulting Unavailable Pierce Pascal Attending Unavailable Isckarus, Mansour Referring Unavailable Milena, Felisa Primary Care Unavailable Isckarus, Mansour Consulting Unavailable Isckarus, Mansour Attending Unavailable Isckarus, Mansour Referring Unavailable Milena, Felisa Primary Care Unavailable Isckarus, Mansour Consulting Unavailable Milena, Felisa Primary Care Unavailable Isckarus, Mansour Attending Unavailable Milena, [facility] Primary Care Unavailable Isckarus, Mansour Attending Unavailable Michelle Sethi PA-C Attending Unavailable Milena, Felisa Referring Unavailable Milena, [facility] Primary Care Unavailable CalabrettaJudd Attending Unavailable Calabretta, Judd Referring Unavailable Milena, [facility] Primary Care Unavailable Calabretta, Judd Consulting Unavailable Isckarus, Mansour Attending Unavailable Isckarus, Mansour Referring Unavailable Milena, [facility] Primary Care Unavailable Isckarus, Mansour Consulting Unavailable YovanyabrettaJudd Attending Unavailable CalabrettaRachaelJudd Referring Unavailable Milena, [facility] Primary Care Unavailable Amber, Bette Attending Unavailable Isckarus, Mansour Referring Unavailable Milena, [facility] Primary Care Unavailable Isckarus, Mansour Consulting Unavailable CalabrettaJudd Attending Unavailable Isckarus, Mansour Referring Unavailable Milena, [facility] Primary Care Unavailable Pierce Pascal Attending Unavailable Isckarus, Mansour Referring Unavailable Milena, [facility] Primary Care Unavailable Isckarus, Mansour Consulting Unavailable Isckarus, Mansour Attending Unavailable Isckarus, Mansour Referring Unavailable Milena, [facility] Primary Care Unavailable Isckarus, Mansour Consulting Unavailable Pierce Pascal Attending Unavailable Pierce Pascal Referring Unavailable Milena, [facility] Primary Care Unavailable Isckarus, Mansour Attending Unavailable Yana, Pierre Referring Unavailable Milena, [facility] Primary Care Unavailable Isckarus, Mansour Consulting Unavailable Pierce Pascal Attending Unavailable Yana, Pierre Referring Unavailable Milena, [facility] Primary Care Unavailable Isckarus, Mansour Consulting Unavailable Isckarus, Mansour Attending Unavailable Yana, Pierre Referring Unavailable Milena, Felisa Primary Care Unavailable Isckarus, Mansour Consulting Unavailable Amber, Bette Attending Unavailable Yana, Pierre Referring Unavailable Milena, [facility] Primary Care Unavailable Isckarus, Mansour Consulting Unavailable Isckarus, Mansour Attending Unavailable Milena, Felisa Primary Care Unavailable Pierce Pascal Attending Unavailable Yana, Pierre Referring Unavailable Milena, Felisa Primary Care Unavailable Isckarus, Mansour Consulting Unavailable Isckarus, Mansour Attending Unavailable Milena, Felisa Primary Care Unavailable Isckarus, Mansour Consulting Unavailable Milena, Felisa Referring Unavailable Pierce Pascal Attending Unavailable Milena, Felisa Primary Care Unavailable Isckarus, Mansour Consulting Unavailable Milena, Felisa Referring Unavailable Milena, Felisa Primary Care Unavailable Isckarus, Mansour Attending Unavailable Isckarus, Mansour Attending Unavailable Isckarus, Mansour Referring Unavailable Milena, Felisa Primary Care Unavailable Isckarus, Mansour Consulting Unavailable Devin, Pierce Attending Unavailable Isckarus, Mansour Referring Unavailable Milena, Felisa Primary Care Unavailable Isckarus, Mansour Consulting Unavailable Isckarus, Mansour Attending Unavailable Isckarus, Mansour Referring Unavailable Milena, Felisa Primary Care Unavailable Isckarus, Mansour Consulting Unavailable Devin, Pierce Attending Unavailable Isckarus, Mansour Referring Unavailable Milena, Felisa Primary Care Unavailable Isckarus, Mansour Consulting Unavailable Devin, Pierce Attending Unavailable Devin, Pierce Referring Unavailable Isckarus, Mansour Attending Unavailable Isckarus, Mansour Referring Unavailable Milena, Felisa Primary Care Unavailable Isckarus, Mansour Consulting Unavailable Isckarus, Mansour Attending Unavailable Isckarus, Mansour Referring Unavailable Milena, Felisa Primary Care Unavailable Isckarus, Mansour Consulting Unavailable Isckarus, Mansour Attending Unavailable Isckarus, Mansour Referring Unavailable Milena, Felisa Primary Care Unavailable Isckarus, Mansour Consulting Unavailable Milena, Dr. Felisa Lindquist Admitting Unavailable Milena, Dr. Felisa Lindquist Attending Unavailable FELISA ABBOTT Attending Unavailable MILENA, FELISA SANTANA Primary Care Unavailable MENDOZA, DAVID Attending Unavailable MILENA, FELISA SANTANA Primary Care Unavailable MENDOZA, DAVID Attending Unavailable MILENA, FELISA SANTANA Primary Care Unavailable MENDOZA, DAVID Attending Unavailable MILENA, FELISA SANTANA Primary Care Unavailable FELISA ABBOTT Attending Unavailable MILENA, [facility] Primary Care Unavailable MENDOZA, DAVID Attending Unavailable MILENA, [facility] Primary Care Unavailable GAVIOTA JAMES Attending Unavailable MILENA, FELISA DILLON Primary Care Unavailable FELISA ABBOTT Attending Unavailable MILENA, FELISA SANTANA Primary Care Unavailable GAVIOTA JAMES Attending Unavailable MILENA, FELISA SANTANA Primary Care Unavailable JARAD MARROQUIN Attending Unavailable MILENA, FELISA SANTANA Primary Care Unavailable GAVIOTA JAMES Attending Unavailable MILENA, FELISA SANTANA Primary Care Unavailable GAVIOTA JAMES Attending Unavailable MILENA, FELISA SANTANA Primary Care Unavailable GAVIOTA JAMES Attending Unavailable MILENA, FELISA SANTANA Primary Care Unavailable MILENA, FELISA SANTANA Attending Unavailable MILENA, FELISA SANTANA Primary Care Unavailable MICHELLE CARRERA Attending Unavailable MILENA, FELISA SANTANA Primary Care Unavailable FELISA MARTELL Attending Unavailable MILENA, FELISA SANTANA Primary Care Unavailable ASHWIN MCGILL Attending Unavailable MILENA, FELISA SANTANA Primary Care Unavailable GAVIOTA JAMES Attending Unavailable MILENA, FELISA SANTANA Primary Care Unavailable MILENA, FELISA DILLON Attending Unavailable MILENA, FELISA SANTANA Primary Care Unavailable MILENA, FELISA DILLON Attending Unavailable MILENA, FELISA SANTANA Primary Care Unavailable MICHELLE CARRERA Attending Unavailable MILENA, [facility] Primary Care Unavailable Sokari, Telemate Admitting Unavailable Sokari, Telemate Attending Unavailable No Doctor Assigned, Nodr Primary Care Unavailable Bitner, Raheem Admitting Unavailable Bitner, Raheem Attending Unavailable No Doctor Assigned, Nodr Primary Care Unavailable Bitner, Raheem Admitting Unavailable Bitner, Raheem Attending Unavailable No Doctor Assigned, Nodr Primary Care Unavailable Bitner, Raheem Admitting Unavailable Bitner, Raheem Attending Unavailable No Doctor Assigned, Nodr Primary Care Unavailable Bitner, Raheem Admitting Unavailable Bitner, Raheem Attending Unavailable No Doctor Assigned, Nodr Primary Care Unavailable Glenroy Gaitan Admitting Unavailable Glenroy Gaitan Attending Unavailable No Doctor Assigned, Nodr Primary Care Unavailable Milena, Felisa T Admitting Unavailable Milena, Felisa T Attending Unavailable Milena, Felisa T Primary Care Unavailable Glenroy Gaitan Admitting Unavailable Glenroy Gaitan Attending Unavailable Milena, Felisa T Primary Care Unavailable Glenroy Gaitan Admitting Unavailable Glenroy Gaitan Attending Unavailable Milena, Felisa T Primary Care Unavailable Magalie Mattson Admitting Unavailable Magalie Mattson Attending Unavailable Milena, Felisa T Primary Care Unavailable Srinivasan, Dr. Magalie Jose Attending Unavailable Glenroy Gaitan Sr Referring Unavailable UNKNOWN, PCP Primary Care Unavailable Rhoda, Dr. Juan Ravi Attending Unavailable UNKNOWN, PCP Referring Unavailable UNKNOWN, PCP Primary Care Unavailable Dr. Magalie Mattson Attending Unavailable Glenroy Gaitan Sr Referring Unavailable UNKNOWN, PCP Primary Care Unavailable Dr. Magalie Mattson Admitting Unavailable Mattson, Dr. Magalie Jose Attending Unavailable UNKNOWN, PCP Primary Care Unavailable Mattson, Dr. Magalie Jose Attending Unavailable Mattson, Dr. Magalie Jose Referring Unavailable UNKNOWN, PCP Primary Care Unavailable Mattson, Dr. Magalie Jose Attending Unavailable Milena, Felisa Dillon Referring Unavailable UNKNOWN, PCP Primary Care Unavailable Mattson, Dr. Magalie Jose Attending Unavailable Mattson, Dr. Magalie Jose Referring Unavailable UNKNOWN, PCP Primary Care Unavailable Mattson, Dr. Magalie Jose Attending Unavailable UNKNOWN, PCP Primary Care Unavailable Mattson, Dr. Magalie Jose Attending Unavailable Milena, Felisa Dillon Referring Unavailable UNKNOWN, PCP Primary Care Unavailable UNKNOWN, PCP Primary Care Unavailable Mattson, Dr. Magalie Jose Attending Unavailable Milena, Felisa Dillon Referring Unavailable UNKNOWN, PCP Primary Care Unavailable Mattson, Dr. Magalie Jose Attending Unavailable Milena, Felisa Dillon Referring Unavailable UNKNOWN, PCP Primary Care Unavailable PROBLEMS PROBLEMS DATE TYPE CONDITION / CODE ATTENDING STATUS SOURCE 06/04/2018 Unknown C01 - Malignant Isckarus, Active [place] neoplasm of base of [facility] tongue / C01(ICD-10) Hospital Repository 06/04/2018 Unknown Z51.0 - Encounter Isckarus, Active [facility] for antineoplastic [facility] radiation therapy / Hospital Z51.0(ICD-10) Repository 05/21/2018 Unknown R13.12 - Dysphagia, Pierce Pascal Active [facility] oropharyngeal phase [facility] / R13.12(ICD-10) Hospital Repository 04/03/2018 [facility]mitting [facility] Active [facility] diagnosis malignant neoplasm [facility] of lymph node, [facility] Repository / C77.9(ICD-10) 09/20/2017 Admitting Other general FELISA ABBOTT Active [facility] diagnosis symptoms and signs / SANTANA [place] R68.89(ICD-10) Repository 09/20/2017 Admitting Hypothyroidism, [place], [facility] diagnosis unspecified / [place]SH[place] MAdelaide [place] E03.9(ICD-10) Repository 02/26/2018 Unknown L58.9 - Isckarus, Active [facility] Radiodermatitis, [facility] unspecified / Hospital L58.9(ICD-10) Repository 02/26/2018 Unknown K12.33 - Oral Isckarus, Active [facility] mucositis [facility] (ulcerative) due to Hospital radiation / Repository K12.33(ICD-10) 02/26/2018 Unknown G89.3 - Neoplasm Isckarus, Active [facility] related pain (acute) [facility] (chronic) / Hospital G89.3(ICD-10) Repository 04/29/2018 Unknown Z79.899 - Other long Isckarus, Active [facility] term (current) drug [facility] therapy / Hospital Z79.899(ICD-10) Repository 04/29/2018 Unknown C77.9 - Secondary Isckarus, Active [facility] and unspecified [facility] malignant neoplasm Hospital of lymph node, Repository unspecified / C77.9(ICD-10) 06/22/2018 Unknown C02.9 - Malignant Calabretta, Active [place] neoplasm of tongue, [facility] unspecified / Hospital C02.9(ICD-10) Repository 06/22/2018 Unknown Z45.2 - Encounter [facility], Active [place] for adjustment and [facility] management of Hospital vascular access Repository device / Z45.2(ICD-10) 10/04/2017 Final diagnosis Malignant neoplasm Dr. Srinivasan Active [facility] (discharge) of base of tongue / [facility] C01(ICD-10) [place] Repository 10/04/2017 Final diagnosis Secondary and unsp Dr. Srinivasan Active [facility] (discharge) malignant neoplasm [facility] of lymph node, unsp [place] Repository / C77.9(ICD-10) 10/04/2017 Final diagnosis Dysphagia, Dr. Srinivasan Active [facility] (discharge) unspecified / [facility] R13.10(ICD-10) [facility] Repository 10/04/2017 Final diagnosis Emphysema, Dr. Srinivasan Active [facility] (discharge) unspecified / [facility] J43.9(ICD-10) [facility] Repository 10/04/2017 Final diagnosis Hypothyroidism, Dr. Srinivasan Active [facility] (discharge) unspecified / [facility] E03.9(ICD-10) [place] Repository 10/04/2017 Final diagnosis Personal history of Dr. Srinivasan Active [facility] (discharge) nicotine dependence [facility] / Z87.891(ICD-10) [place] Repository 10/04/2017 Active Malignant neoplasm Mattson, Dr. Wes Mcconnell of base of tongue / [facility] C01(ICD-10) [place] Repository 10/04/[address] Srinivasan [facility] diagnosis of base of tongue / [facility] C01(ICD-10) [place] Repository 10/02/2017 Final diagnosis Encounter for other Dr. Wes Mattson [facility] (discharge) preprocedural [facility] examination / [place] Repository Z01.818(ICD-10) 09/18/2017 Admitting Localized swelling, MENDOZA, [facility] diagnosis mass and lump, neck A[facility] / R22.1(ICD-10) Repository 09/18/2017 Admitting Obesity, unspecified FELISA ABBOTT [facility] diagnosis / E66.9(ICD-10) SANTANA [place] Repository 09/18/2017 Admitting Other specified FELISA ABBOTT [facility] diagnosis anxiety disorders / SANTANA [place] F41.8(ICD-10) Repository 09/18/2017 Admitting Family history of MILENA [facility] diagnosis diabetes mellitus / SANTANA [place] Z83.3(ICD-10) Repository 09/18/2017 Admitting Nicotine dependence, FELISA ABBOTT [facility] diagnosis cigarettes, SANTANA [place] uncomplicated / Repository F17.210(ICD-10) PROCEDURES PROCEDURES DATE CODE DESCRIPTION STATUS SOURCE 10/04/2017 26026([facility] [address] [facility] CPT-4) Hospitals Repository 10/04/2017 13503([facility] [id number] Completed [facility] CPT4) Hospitals Repository 10/04/2017 16788([facility] [address] Completed [facility] CPT4) Hospitals Repository 10/04/2017 [id number]([facility] [address] [facility] CPT4) [facility] Repository RESULTS RESULTS ESTABLISHED VISIT Observed: 06/02/2018 Status: UNK Source: [place] (OTOLARYNGOLOGY) 3:27 PM HOSPITALS REPOSITORY Chief Complaint cancer follow up History of Present Illness Ms. FCO GARNETT, is a 47 year old female with T3N2M0 SCCa P16+ right BOT cancer. She completed chemoradiation therapy 12/23/17. She is feeling well except for a concern about a dark spot on her left an terior oral tongue as well as a tender nodule along the gums on the left. Dysphagia and odynophagia have been persistent since she completed treatment. She recently had cookie swallow with speech therap y and was told she had decreased epiglottic inversion and muscle damage in her throat. She was provided with exercises and has a follow up with speech therapy 06/04/18. She continues to tolerate a regul ar diet well and her weight remains stable. She is scheduled for repeat PET scan 06/20/18. Previously 3 month tx PET scan showed a max SUV of 4.6 within the BOT but on my personal review this appeared mo re diffuse than a discrete area. She had complete response in her neck and no evidence of metastasis. History: Dx: T3N2M0 SCCa, P16+ Right BOT 09/22/17: CT neck with contrast a right base of tongue mass which crosses the midline and involves nearly the entire BOT along with multiple (at least 3) necrotic/pathologic lymphadenopathy along with a few other enhancing lymph nodes. Largest cystic right neck mass measures 4cm. 09/23/17: Dr. Gaitan OR for triple endoscopy and biopsy which returned +inv SCCa (P16+) 10/04/17: OR for triple endoscopy/tumor mapping 10/07/17: CT chest: no evidence of pulmonary metastasis 11/05/17: Began chemoradiation therapy with cisplatin switched to carboplatin and paclitaxel 12/23/17: Completed chemoradiation 03/28/2018: 3 month post treatment PET - max SUV of 4.6 within the BOT, area appears more diffuse than a discrete area. She had complete response in her neck and no evidence of metastasis. 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 all other systems have been reviewed and are negative for complaint. 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) Surgical History History of Gallbladder Surgery History of Hysterectomy Social History Currently working Former smoker (V15.82) (Z87.891) Occasional alcohol use from significant other (V61.03) (Z63.5) Allergies No Known Allergies Recorded By: Trisha Babcock; 10/02/2017 3:41:33 PM Current Meds First-Mouthwash BLM Mouth/Throat Suspension; 5ml swish and swallow 3 times a day after meals; Therapy: 06Mar2018 to (Last Rx:06Mar2018) Requested for: 11Mar2018 Ordered Rx By: Magalie Mattson; Dispense: 0 Days ; #:1 X 237 ML Bottle; Refill: 2;For: Cancer of base of tongue, PMH: Mucositis; MARCIAL = N; Verified Transmission to [facility] 1448 Chantix 1 MG Oral Tablet; Therapy: 18Sep2017 to Recorded Rx By: MILENA; Dispense: 30 Days ; #:60; Refill: 0; MARICAL = N; Record; Last Updated By: Trisha Babcock; 10/02/2017 8:44:17 AM Chantix Starting Month Larry 0.5 MG X 11 AND 1 MG X 42 Oral Tablet; Therapy: 18Sep2017 to Recorded Rx By: MILENA; Dispense: 28 Days ; #:53; Refill: 0; MARCIAL = N; Record; Last Updated By: Trisha Babcock; 10/02/2017 8:44:17 AM Dexamethasone 4 MG Oral Tablet; Therapy: 04Nov2017 to Recorded Rx By: GAUDENCIO; Dispense: 10 Days ; #:10; Refill: 0; MARCIAL = N; Record; Last Updated By: Ivett Dillon; 01/13/2018 1:15:16 PM Fluconazole 100 MG Oral Tablet; Therapy: [id number] to Recorded Rx By: DEVIN; Dispense: 14 Days ; #:15; Refill: 0; MARCIAL = N; Record; Last Updated By: Ivett Dillon; 01/13/2018 1:15:17 PM Gabapentin 300 MG Oral Capsule; Therapy: 06Nov2017 to Recorded Rx By: DEVIN; Dispense: 16 Days ; #:100; Refill: 0; MARCIAL = N; Record; Last Updated By: Ivett Dillon; 01/13/2018 1:15:16 PM Levothyroxine Sodium 50 MCG Oral Tablet; Therapy: 20Sep2017 to Recorded Rx By: MILENA; Dispense: 30 Days ; #:30; Refill: 0; MARCIAL = N; Record; Last Updated By: Trisha Babcock; 10/02/2017 8:44:17 AM Lidocaine Viscous 2 % Mouth/Throat Solution; Therapy: 19Nov2017 to Recorded Dispense: 4 Days ; #:240; Refill: 0; MARCIAL = N; Record; Last Updated By: Ivett Dillon; 01/13/2018 1:15:17 PM Lidocaine-Prilocaine 2.5-2.5 % External Cream; Therapy: 14Oct2017 to Recorded Rx By: AMBER; Dispense: 30 Days ; #:30; Refill: 0; MARCIAL = N; Record; Last Updated By: Ivett Dillon; 01/13/2018 1:15:16 PM OLANZapine 10 MG Oral Tablet; Therapy: 14Oct2017 to Recorded Rx By: AMBER; Dispense: 15 Days ; #:15; Refill: 0; MARCIAL = N; Record; Last Updated By: Ivett Dillon; 01/13/2018 1:15:17 PM Ondansetron HCl - 4 MG Oral Tablet; Therapy: 14Oct2017 to Recorded Rx By: AMBER; Dispense: 30 Days ; #:30; Refill: 0; MARCIAL = N; Record; Last Updated By: Ivett Dillon; 01/13/2018 1:15:17 PM OxyCODONE HCl - 5 MG/5ML Oral Solution; Therapy: 12Dec2017 to Recorded Rx By: DEVIN; Dispense: 20 Days ; #:600; Refill: 0; MARCIAL = N; Record; Last Updated By: Ivett Dillon; 01/13/2018 1:15:16 PM SSD 1 % External Cream; Therapy: [id number] to Recorded Rx By: DEVIN; Dispense: 15 Days ; #:50; Refill: 0; MARCIAL = N; Record; Last Updated By: Ivett Dillon; 01/13/2018 1:15:16 PM TraMADol HCl - 50 MG Oral Tablet; Therapy: 04Oct2017 to Recorded Rx By: CLARK; Dispense: 7 Days ; #:28; Refill: 0; MARCIAL = N; Record; Last Updated By: Ivett Dillon; 01/13/2018 1:15:17 PM Vitals Vital Signs Recorded: 02Jun2018 02:33PM Ddneax516 lb 2 oz BMI Isbnghzgms15.84 BSA Calculated1.75 Physical Exam Constitutional: General appearance: Appears older than stated age, well-nourished, well groomed. No acute distress. Communication: Normal communication Psychiatric: Oriented to person, place and time. Normal mood and affect. Neurologic: Cranial nerves II-XII grossly intact and symmetric bilaterally. Head and Face: Head: Atraumatic with no masses, lesions or scarring. Face: Normal symmetry, no paralysis, synkinesis or facial tic. No scars or deformities. TMJ: Normal, no trismus. Eyes: Conjunctiva not edematous or erythematous Ears: External inspection of ears with no deformity, scars or masses. EAC patent, no cerumen. TMs intact no ARACELI Nose: External inspection of nose: No nasal lesions, lacerations or scars. Septum midline, patent bilaterally Oral Cavity/Mouth: Oral cavity and oropharynx mucosa moist. No evidence of mucositis today. There is a dark spot on her right anterolateral tongue which is consistent with a small blood vessel. She has diffuse tenderness along the left tongue as well as along the left mandible compared to the right. There is no mass but there is white plaque along her upper and lower gums bilaterally. There is no evid ence of a mandibular mass on palpation but this is tender. No ulceration intraorally. See scope below. Neck/Lymphatic: The previous right pathologic lymphadenopathy now resolved, significant skin barron bilaterally healing well. Cardiovascular: Examination of peripheral vascular system shows no clubbing or cyanosis. Respiratory: No respiratory distress increased work of breathing. Inspection of the chest with symmetric chest expansion and normal respiratory effort. Skin: No rashes in the head or neck, radiation burn now well healed Procedure PROCEDURE NOTE: Recommended flexible nasopharyngoscopy AND laryngoscopy. Risks, benefits, personnel and alternatives were explained. The patient wished to proceed. S/he was re-identified. PROCEDURE: Flexible nasopharyngoscopy and laryngoscopy PREOPERATIVE DIAGNOSIS: BOT cancer POSTOPERATIVE DIAGNOSIS: Same as above INDICATIONS: Inability to tolerate mirror exam ANESTHESIA: 4% lidocaine and 0.5% phenylephrine PROCEDURE: With the patient sitting upright topical anesthesia and vasoconstriction was applied with spray to the right side(s) of the nose. After waiting an appropriate period of time for anesthesia/va soconstriction to become effective, a flexible laryngoscope was passed through the right side(s) of the nose. Nasopharynx, oropharynx, hypopharynx and larynx were examined. FINDINGS: The nasopharynx was normal without any lesions or masses visualized. Upon entrance into the oropharynx the previous right BOT mass is now gone. There is significant radiation edema. The previo us ulceration in the right vallecula is now fully resolved! Still very edematous. No visible mass. Mild pooling of secretions (stable). True vocal fold movement was normal with edema. The patient's airw ay was widely patent with no evidence of obstruction. Patient tolerated the procedure well, and there were no complications. 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 She completed chemoradiation in 12/11. No evidence of discrete mass visit today on physical exam or nasop haryngoscopy. Previous ulceration has finally healed. She is schedule for a follow up PET scan due to previous persistent activity at the BOT. If there is still significant BOT activity will proceed wit h DL/biopsies but I am hopefully this will be negative. No visible mass. She does have tenderness along the left tongue and mandible but there is no evidence of mass or ulceration. No evidence of thrush today. Reassurance provided today. Patient to followup in 2 months but I will review PET and can adjust follow up based on these results. Patient Discussion/Summary Dr. Mattson evaluated you today. Your care plan is outlined below: -- A prescription was sent to your pharmacy today. Please lease picker the medication at the pharmacy and begin taking as prescribed immediately. -- Follow up with Dr. Mattson in 2 months. This appointment was scheduled at the end of your visit today. If you need to reschedule, please call the office at [phone]. Please keep in mind that last minute cancellations often result in delayed follow-up appointments. Dr. Mattson makes every effort to run on time for your appointments. Therefore, if you are more than 30 minutes late for your appointment, unrelated to a scan or another appointment such as chemotherapy or radiation, your appointment will need to be rescheduled to another day. We appreciate your understanding. Signatures Electronically signed by : Magalie Mattson MD; Jun 02 2018 3:27PM EST (Author) MODIFIED BARIUM Observed: 05/21/2018 Status: F Source: [place] SWALLOW STUDY 3:56 PM [facility] REPOSITORY [facility] Speech Pathology [address] [place] [address] Modified Barium Swallow Study MR#: [id number] Acct: [id number] Name: DANYFCO Ladonna Rep #: [id number] : 1970 47 From: Scott Andersen M.A. CFY-BROADCAST OPERATIONS MANAGER PRIMARY / SECONDARY DIAGNOSIS: dysphagia (R13.10) REFERRING PHYSICIAN: Dr. 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 This study was recorded in the lateral view and images were sent to PACs for storage. The following consistencies were presented to this patient for analysis of oropharyngeal swallow function: thin liquids, pudding, and a regular textured, Michelle Doone cookie. Results of the MBS are as follows: PENETRATION / ASPIRATION SCALE (LEIGH): 1 = does not enter airway 2 = enters airway/above vocal folds/ejected 3 = enters airway/above vocal folds/not ejected 4 = enters airway/contacts vocal folds/ejected 5 = enters airway/contacts vocal folds/not ejected 6 = enters airway/below vocal folds/ejected 7 = enters airway/below vocal folds/not ejected despite effort 8 = enters airway/below vocal folds/no effort PENETRATION / ASPIRATION SCALE (SCORE) WITH VIDEOFLOROSCOPIC SCALE SCORE: Thin liquid - 5 mL tsp.: 1 Thin liquids via cup (single sip): 1 Thin liquids via cup (single sip): 1 Thin liquids via cup (single sip): 1 Thin liquids via straw (single sip): 1 Thin liquids via straw (sequential swallows): 4 Pudding via spoon: 1 Regular textured cookie: 1 Thin liquids via straw (single sip chaser): 1 Thin liquids via straw (single sip chaser): 1 Thin liquids via straw (single sip chaser): 1 Thin liquids via straw (single sip): 1 IMPRESSION: DIAGNOSIS: mild oropharyngeal dysphagia (R13.12) Dysphagia Severity Ratings Scale: 2 (mild) DIGEST Grade: 1 DIGEST Safety Grade: 0 DIGEST Efficiency Grade: 1 ORAL PHASE CHARACTERIZED BY: LABIAL SEAL: no labial escape TONGUE CONTROL DURING BOLUS MANIPULATION: cohesive bolus between tongue to palatal seal BOLUS PREPARATION / MASTICATION: slow prolonged chewing/mashing with complete recollection BOLUS TRANSPORT / LINGUAL MOTION: brisk tongue motion ORAL RESIDUE: trace residue lining oral structures PHARYNGEAL PHASE CHARACTERIZED BY: INITIATION OF PHARYNGEAL SWALLOW: bolus head at posterior laryngeal surface of epiglottis at first hyoid excursion SOFT PALATE ELEVATION: trace column of contrast/air between soft palate and pharyngeal wall LARYNGEAL ELEVATION: partial superior movement of thyroid cartilage/partial approximation of arytenoids cartilage to epiglottic petiole ANTERIOR HYOID EXCURSION: partial anterior movement EPIGLOTTIC MOVEMENT: partial epiglottic inversion LARYNGEAL VESTIBULE CLOSURE AT HEIGHT OF SWALLOW: complete laryngeal vestibule closure with no air/contrast in laryngeal vestibule PHARYNGEAL STRIPPING WAVE: pharyngeal stripping wave present / diminished PHARYNGOESOPHAGEAL SEGMENT OPENING: partial distension and partial duration; partial obstruction of flow TONGUE BASE RETRACTION: narrow column of contrast between tongue base and posterior pharyngeal wall PHARYNGEAL RESIDUE: collection of residue within or on pharyngeal structures ESOPHAGEAL PHASE CHARACTERIZED BY: ESOPHAGEAL BOLUS CLEARANCE IN THE UPRIGHT POSITION: complete clearance; esophageal coating EFFECTS OF TREATMENT STRATEGIES ATTEMPTED: Liquid chaser = effective Reduced bolus size = effective Reduced rate of intake = effective DIET TEXTURE RECOMMENDATIONS: Will recommend a regular / soft textured, thin liquid diet. COMPENSATORY STRATEGIES RECOMMENDED: Reduced bolus volume, reduced rate of intake, moisture with all solid textures, alternate bites and sips at reasonable intervals, seated upright at 90 degrees during PO intake, remain upright for 30-60 minutes post meal (GERD precaution), medications one at a time with liquid chaser. 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 Oral preparatory phase marked by prolonged mastication associated with edentulous status and reported intraoral pain attributed to suspected ulcerations; adequate bolus containment. Oral transitional phase was overall unremarkable, with sufficient bolus collection and transportation, no issues with posterior bolus loss / containment. Pharyngeal phase marked by mild to moderate impairments in pharyngeal swallow onset timing / synchrony coupled with mild reductions in laryngeal vestibule closure and pharyngeal motility contributing to prandial penetration with ejection during sequential ingestion of thin liquids; noted velopharyngeal insufficiency with contrast nearing the nasal cavity. All deficits ameliorated with bolus volume / rate adjustments. RECOMMENDATIONS: The Patient is at higher risk for continual changes and possible decline swallow functioning post chemoradiation. Would consider annual re-assessments under fluoroscopy with similar standardized interpretive measures to assess for continual post irradiation changes to the swallow mechanism, with therapeutic and dietary adjustments as clinically indicated. The Patient requires continued skilled speech-language intervention targeting diet texture management and training / implementation of recommended compensatory strategies; training and implementation of a home based swallowing exercise program to promote the highest level of preserved post-irradiation swallow functioning; training and implementation of a home oral care protocol to reduce the effects of xerostomia and improve / maintain the integrity of the oral mucosa reducing the risk of aspiration related pulmonary complications; and Patient / caregiver education regarding kiah and post-irradiation dysphagia and associated symptomology. ADDITIONAL COMMENTS/RECOMMENDATIONS: Results and recommendations were discussed with the Patient immediately following MBS completion, with the Patient verbalizing understanding and agreement with all recommendations and education provided. IMAGE COUNT: [id number] G-CODES: SWALLOWING [id number] Current Status: CJ SWALLOWING G8997 Goal Status: CI SWALLOWING G8998 Discharge Status: SHANTANU Andersen M.A., CCC-BROADCAST OPERATIONS MANAGER [facility] Speech-Language Pathology [email or web address] 05/21/18 [id number] <Electronically signed by Scott Andersen M.A. CFY-BROADCAST OPERATIONS MANAGER> Date Scott Andersen M.A. CFY-BROADCAST OPERATIONS MANAGER Co-Signature Required for all Medicare patients Date/Time Co-Signature CC: SP INITIAL EVALUATION Observed: 05/21/2018 Status: F Source: [place] 3:56 PM [facility] REPOSITORY [facility] Speech Pathology [facility] [address] [place] [address] [address] [place] [address] / REHABILITATION SERVICES INITIAL EVALUATION MR#: [id number] Acct: [id number] Name: FCO GARNETT Rep #: [id number] : 1970 47 From: Scott Andersen M.A., CFY-BROADCAST OPERATIONS MANAGER Referring DrAdelaide: Pierce Pascal DO Status: PRE RCR Insurance: [employer] JULIA Eval Date: SELF PAY INSURANCE REASON FOR REFERRAL: The Patient is a 47 year old female referred for an outpatient clinical dysphagia evaluation on 05/21/2018 secondary to 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 The Patient reports initial weight loss ( weight 190lbs; 01/17/2018 weight 177.6lbs, 04/09/2018 weight 164 lbs.; 7.5% loss since December, 14% loss overall per records), with the Patient initially depending on alternative supplementation via percutaneous endoscopic gastrostomy (PEG) tube (placed 10/04/2017; since removed) and PO caloric supplementation. She reports persistent hypogeusia / dysgeusia (Scale of Subjective Total Taste Acuity Grade I-II), with improving xerostomia (Grade I per RTOG Radiation Morbidity Scoring Criteria). The Patient reports increasing intraoral pain particularly towards the posterior portions of the oral cavity with suspected ulcerations that are currently at a 10/10 pain scale, reports she has not contacted the physician s office due to her holiday schedule / anticipated physician s office schedule; she reports dedicated oral care with oral rinses as recommended. Odynophagia has almost completely resolved, with occasional tolerable pain (no further specification). No changes in appetite reported, denies early satiety, nausea, or bouts of emesis. The Patient denies any coughing or throat clearing during PO intake, though does report intermittent coughing with phlegm production aside from PO intake, with intermittent sensations of food getting stuck , though this improves with a liquid wash. The Patient later reports intermittent rhinorrhea during / following intake with occasional sensations of nasoregurgitation. 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 The Patient appears cognitively intact, with no reported cognitive based complications (does report mild impairments during chemotherapy interventions which have subsided as expected). The Patient s vocal quality is clearly impaired, with the Patient reporting almost complete aphonia particularly upon waking which somewhat improves throughout the day; overall the Patient reports reductions in vocal quality post irradiation. PREVIOUS MODIFIED BARIUM SWALLOW STUDY: 05/21/2018 MBS revealed mild oropharyngeal dysphagia (DIGEST Grade 1) with transient penetration of thin liquids during sequential ingestion. 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 Edentulous status, reports no prior use of dentures. Oral mucosa moist pinkish appearance with reported persistent xerostomia. Slight whitish coating along the lingual blade with reported right lingual pain, small painful ulceration on the left mandibular arch, questionable left sublingual ulceration (reported significant pain at location). Mild reduction in cough intensity. Horse / breathy vocal quality with alternating aphonia / dysphonia with tension. SUPPLEMENTARY DYSPHAGIA ASSESSMENT RESULTS: Malnutrition Screening Tool (MST): 2 (at risk) Reflux Symptom Index (RSI): 28 (RSI > 13 may be indicative of significant reflux) Sialorrhea Scoring Scale (SSS): 1/9 (dry, never drools) [facility] Xerostomia Questionnaire: 68/80* Functional Assessment of Cancer Therapy Head AND Neck (FACT H AND N): 84* Physical Well-Bein Social / Family Well- Bein Emotional Well-Bein Functional Well-Bein Additional Concerns: 22 Functional Assessment of Cancer Therapy Cognitive Function (FACT-Cog): 35* Perceived Cognitive Impairments: 17 Comments from Others: 4 Perceived Cognitive Abilities: 8 Impact on Quality of Life: 6 MD Terell Dysphagia Inventory (MDADI): Global: 62/100* Physical: 24/40 Emotional: 19/30 Functional: 19/25 *higher scores represent greater degree of symptoms CLINICAL ASSESSMENT OF SWALLOW FUNCTION (STRUCTURED): Total Dysphagia Risk Score (TDRS): 34 High risk (TDRS > 18) Venegas Assessment of Swallowing Ability Cancer (MASA-C): 168 (Moderate) Venegas Assessment of Swallowing Ability Cancer (MASA-C) Risk Rating: Probable Performance Status Scale for Head and Neck Cancer Patients (PSS-HN): 150/300 Normalcy of Diet: 50 (soft, chewable foods) Public Eatin (Eats only at home in presence of selected persons) Understandability of Speech: 75 (Understandable; occasional repetition) Swallowing Performance Scale (PSP): 3 - mild CLINICAL ASSESSMENT OF SWALLOW FUNCTION (SUBJECTIVE): ORAL PREPARATORY PHASE: oral preparatory phase marked by prolonged mastication associated with edentulous status and reported intraoral pain attributed to suspected ulcerations; adequate bolus containment. ORAL TRANSITIONAL PHASE: oral transitional phase appears unremarkable; no signs of bolus consolidation impairments or transitional incompetence; no signs or symptoms of premature posterior bolus loss. PHARYNGEAL PHASE: pharyngeal phase marked by mild reduction in reduced hyolaryngeal excursion upon digital palpation suggestive of suboptimal laryngeal vestibule closure / pressure / duration; reported intermittent nasal reflux (not during assessment) with intermittent rhinorrhea during ingestion; no overt signs or symptoms of penetration / aspiration. ESOPHAGEAL PHASE: esophageal phase appears unremarkable, though noted high RSI score reported (28) COMPLICATING FACTORS: the Patient reports intermittent aerophagia, though this may be associated with mild velopharyngeal insufficiency with intermittent nasoregurgitation identified under fluoroscopy. 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 RECOMMENDATIONS: The patient is at higher risk for continual changes and possible decline swallow functioning post chemoradiation. Would consider annual re-assessments under fluoroscopy with similar standardized interpretive measures to assess for continual post irradiation changes to the swallow mechanism, with therapeutic and dietary adjustments as clinically indicated. The Patient requires continued skilled speech-language intervention targeting diet texture management and training / implementation of recommended compensatory strategies; training and implementation of a home based swallowing exercise program to promote the highest level of preserved post-irradiation swallow functioning; training and implementation of a home oral care protocol to reduce the effects of xerostomia and improve / maintain the integrity of the oral mucosa reducing the risk of aspiration related pulmonary complications; and Patient / caregiver education regarding kiah and post-irradiation dysphagia and associated symptomology. DIET TEXTURE RECOMMENDATIONS: Will recommend a regular / soft textured, thin liquid diet w/ the following recommended aspiration precautions in place: reduced bolus volume, reduced rate of intake, moisture with all solid textures, alternate bites and sips at reasonable intervals, seated upright at 90 degrees during PO intake, remain upright for 30-60 minutes post meal (GERD precaution), medications one at a time with liquid chaser. FUNCTIONAL OUTCOMES: OUTCOME 1: The Patient will tolerate the least restrictive means of nutrition to facilitate adequate hydration/nutrition with optimum safety and efficiency of swallowing function during P.O. intake without overt signs and symptoms of aspiration. OUTCOME 2: The Patient will demonstrate and utilize recommended compensatory swallowing techniques to facilitate improved airway protection and decreased risk for aspiration during PO intake, across 2 out of 3 sessions. OUTCOME 3: The Patient will demonstrate and utilize recommended oropharyngeal strengthening exercises to facilitate improved pharyngeal contraction, hyolaryngeal excursion, laryngeal vestibule closure, and velopharyngeal functioning with minimal cueing and prompting provide by the clinician, across 2 out of 3 sessions. OUTCOME 4: goal adjustment as needed G-CODES: SWALLOWING G8996 Current Status: CJ SWALLOWING G8997 Goal Status: CI Scott Andersen M.A., CCC-BROADCAST OPERATIONS MANAGER [facility] Speech-Language Pathology Department [email or web address] <Electronically signed by Scott Andersen M.A., CFY-BROADCAST OPERATIONS MANAGER> 05/21/18 1556 CC: [facility] Signed For Medicare only, by signing this I certify the plan of care. Physicians Signature Date SWALLOWING FUNCTION Observed: 05/21/2018 Status: F Source: [place] W/VIDEO 12:52 PM [facility] REPOSITORY [facility] Imaging Services [address] [place] [address] Swallowing Function w/Video MR#: [id number] Acct: [id number] Name: FCO GARNETT Rep #: [id number] : 1970 F 47 From: Yves Jaramillo MD PCP: Felisa Abbott Status: REG CLI Study: Swallowing Function w/Video Date of Exam: 05/21/18 Exam# [id number] Ordering Dr: Pierce Pascal DO STUDY: SWALLOWING STUDY REASON FOR EXAM: Female, 47 years old. TECHNIQUE: The examination was performed with Speech Pathology in attendance. Under fluoroscopic observation, the patient ingested thin barium, thick barium, barium pudding, and barium coated cracker. FLUOROSCOPY TIME: 1:39 minutes/seconds RADIOLOGIST INVOLVEMENT: COMPARISON: None. FINDINGS: Trialed thin Liquids, pudding, regular textures. Transient penetration with sequential swallows of thin liquids and evaluated with bolus volume/rate reduction. No further penetration or aspiration noted. comment by Scott Casey 2524 personal cell:[phone] RAD/Swallowing Function w/Video IMPRESSION: Normal tailored barium swallow study. No evidence of increased risk for aspiration. The swallow study findings were discussed with the patient by the speech pathologist at the conclusion of the examination. Please see speech pathology report for more information and recommendations. Electronically Signed: Yves Jaramillo, at 16:47 EST Tel , Service support , CC: Felisa Abbott; Pierce Pascal DO Offal Trimmer: Signed ONCOLOGY VISIT REPORT Observed: 04/09/2018 Status: F Source: [place] 3:32 PM [facility] REPOSITORY [facility] [address] [place] [address] OFFICE VISIT Date of Service: 04/09/18 1447 MR#: [id number] Acct: [id number] Name: FCO GARNETT Rep #: [id number] : 1970 From: Gloria Goode MD Age/Sex: 47/F Location: [facility] Status: Signed - Problem List (1) Tongue cancer Status: Chronic Comment: HPV + (2) Regional lymph node metastasis present Status: Chronic (3) Tinnitus Status: Resolved - Date of Service Date of Service:: 04/09/18 - Chief Complaint Tongue cancer, follow-up - History of Present Illness Patient is a 46-year-old female, smoker till September 2017 who presented with a painless enlarging right neck mass since July 2017. Was seen by Dr. 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 CAT scan of the neck in August 2017 confirmed the mass measuring up to 3.6 cm in maximum diameter with right neck necrotic adenopathy measuring up to 3.9 cm in maximum diameter. At least 3 pathologic nodes identified on imaging. The mass was felt to cross the midline and involve the right lingual tonsil and the right aryepiglottic fold. Patient has lost only a few pounds of weight only recently and a feeding tube was placed by Dr. Mattson and she was referred for definitive chemoradiation. Patient elected to come to [facility] close to home. PET/CT staging September 2017 showed no evidence of distant metastatic disease. Treatment: Combined radiation therapy and high-dose cisplatin (X1) November 05, 2017, switched to weekly Carbo-Taxol November 26, 2017 due to toxicity (Tinnitus) . 7000 cGy of 6 MV photons in 35 fractions to the primary base of tongue disease, right neck disease, and concerning left neck lymph nodes with a VMAT technique consisting of 3 arcs. Concurrently 6300 cGy was delivered to the bilateral neck high levels 2 and 1B through 3 as well as level 4 on the right and 5600 cGy to left level 4 and bilateral supraclavicular regions all in one radiation plan. 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 Denies: Fever, Sweats, Weight loss, Appetite change, Chills Cardiovascular:: Denies: Chest pain, Palpitations, Dyspnea on exertion, Orthopnea, PND, Shortness of breath Respiratory: Denies: Cough, Hemoptysis, Shortness of Breath, Wheezing Gastrointestinal:: Reports: - - Dry mouth, PEG tube gone, gradually resuming normal diet. Denies: Abdominal pain, Nausea, Vomiting, Diarrhea, Constipation, Hematochezia Genitourinary: Denies: Dysuria, Hematuria, 15, Flank pain Musculoskeletal:: Denies: Back pain, Myalgia, Arthralgia Skin: Denies: Rash, Skin Changes, Wounds Neurological:: Reports: Tinnitus - Intermittent. Denies: Headache, Dizziness, Visual changes, Hearing loss Psychiatric: Denies: Anxiety, Depression, Homicidal Ideations, Suicidal Ideations Vital Signs Height 5 ft 2 in Weight: 74.979 kg Weight in Pounds 165.3 lbs BMI 34.3 Pulse Ox 98 - Physical Exam General: Alert, Oriented x3, No apparent distress, - - ECOG 1 HEENT: Atraumatic, PERRLA, EOMI, Normocephalic Oropharynx:: Dry mucosa Neck:: Supple, Trachea midline, - - Port okay. Negative for: JVD, bilateral Cardiac:: Regular rate, Regular rhythm, Normal S1, Normal S2. Negative for: Murmur Lungs: Clear to auscultation, Excusion symmetrical. Negative for: Rhonchi, Wheezes Abdomen:: Soft, Non-tender, Non-distended. Negative for: Hepatosplenomegaly Extremities:: Negative for: Cyanosis, Edema Neurological: Neuro grossly intact Skin:: - - Postradiation skin changes neck. 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 The patient is at least clinical prognostic stage II for HPV positive head and neck cancer (T3, N1, MX). She is anatomic stage IV (T3, N2, Mx) by AJCC UICC 2017. She completed concomitant chemoradiation October-November,. She received 1 cycle of high-dose cisplatin then switched to weekly carbo-taxol due to tinnitus which gradually improved. Plan: She was evaluated by ENT on December 2017 and reportedly had no evidence of disease on exam , and again by Dr. Pascal March 2018 with no evidence for residual disease. She will have a follow-up with Dr. Mattson in May 2018 and will have a PET scan then. I will plan to see her following the PET scan . Patient seen impression and plan reviewed Medications: Prescriptions This Visit Medication Instructions Recorded Levothyroxine [Synthroid] 50 mcg PO DAILY 10/07/17 Magic Mouth Wash 15 ml PO Q6H PRN PRN #240 ml 11/06/17 Primary Care Provider: Felisa Abbott Referring Provider: Gloria Goode MD 04/09/18 4084 <Electronically signed by Gloria Goode MD> Date Gloria Goode MD Cosigner Signature: Date (if applicable) CC: ONCOLOGY FOLLOW-UP Observed: 04/07/2018 Status: F Source: [place] VISIT 3:23 PM [facility] REPOSITORY [facility] Medical Records Department [address] [place] [address] Oncology Follow-Up Visit 04/07/18 1504 MR#: [id number] Acct: [id number] Name: FCO GRANETT Rep #: [id number] : 1970 47 From: Pierce Pascal DO PCP: Felisa Abbott Status: REG RCR Y Location: [facility] Date of Service: 04/07/18 Last Clinic Visit: 01/20/18 Diagnosis: Fco Garnett is a diagnosed with AJCC seventh edition stage DAVID (cT2-3N2bMx), AJCC eighth edition Stage II (cT2-3N1Mx), 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 History of Present Illness: 09/12/2017: Patient underwent CT of the neck with contrast which demonstrated necrotic adenopathy within the right neck specifically at level 3 there is a lymph node measuring 39 x 29 x 26 mm, right neck level 5 lymph node measuring 14 x 18 mm. There is also identified a mass involving the lingual tonsil and extending into the right AE fold measuring about 28 x 36 x 36 mm. 09/16/2017: Patient was evaluated by [facility] for a firm and moderately tender right anterior neck mass ongoing for several weeks. On exam there was noted to be a large mass involving the right greater than left base of tongue down to the vallecula, but unable to complete mirror exam to further evaluate extent due to hyperactive gag reflex. FNA of the neck mass was completed. 09/23/2017: Patient underwent direct laryngoscopy with biopsy. Pathology demonstrated evidence for invasive moderately differentiated squamous cell carcinoma, p16 positive. 10/02/2017: Patient was evaluated by ENT at [facility] on exam the patient was noted to be edentulous, there is a firmness across the entire base of tongue right greater than left, a right pathologically enlarged lymph node which is tender to palpation measures about 4 cm. NPL was performed which showed the mass involving the right base of tongue which extends down into the vallecula and approaches the larynx but does not involve the false vocal cord or true vocal cord, this mass does appear to cross midline but there were no masses or lesions visualized at the epiglottis, AE folds, piriform sinuses, or lateral pharyngeal clement. From 11/05/17 - 12/23/17 she received 7000 cGy in 35 fractions to the primary base of tongue disease, right neck disease, and concerning left neck lymph nodes with a VMAT technique consisting of 3 arcs. Concurrently 6300 cGy was delivered to the bilateral neck high levels 2 and 1B through 3 as well as level 4 on the right and 5600 cGy to left level 4 and bilateral supraclavicular regions all in one radiation plan. She was treated with concurrent cisplatin 100 mg/m every 3 weeks (cycle one 11/05/17), switched to weekly carbo/taxol for cycle 2 due to tinnitus (started 11/26/17). 03/28/2018: PET scan was performed which demonstrated a small area of increased FDG metabolism identified at the base of tongue with a max SUV of 4.6. It is unclear if this represents radiation edema/ulceration/inflammation or persistent disease. No other hypermetabolic areas are noted in the previously noted hypermetabolic lymph nodes have resolved. There is no evidence for metastatic disease. 04/03/2018: Patient was evaluated by ENT for follow-up. Physical exam and NPL were completed and demonstrated great improvement in previously noted mucositis with some residual mild erythema in the posterior soft palate, mild tenderness at the right base of tongue, complete resolution of the previously noted right pathologic lymphadenopathy, with direct visualization at the base of tongue the previously noted mass is now gone but there is significant radiation edema, there is continued improvement in the ulceration of the right vallecula, still very edematous, no evidence of discrete lesions noted. Radiation Treatment History: 1) From 11/05/17 - 12/23/17 she received 7000 cGy in 35 fractions to the primary base of tongue disease, right neck disease, and concerning left neck lymph nodes with a VMAT technique consisting of 3 arcs. Concurrently 6300 cGy was delivered to the bilateral neck high levels 2 and 1B through 3 as well as level 4 on the right and 5600 cGy to left level 4 and bilateral supraclavicular regions all in one radiation plan. She was treated with concurrent cisplatin 100 mg/m every 3 weeks (cycle one 11/05/17), switched to weekly carbo/taxol for cycle 2 due to tinnitus (started 11/26/17). Interval History: Patient returns for follow-up approximately 3 months after completing chemoradiation. Over this time she has noted continued improvement in radiation related toxicities. She does report having persistent xerostomia and she uses Biotene frequently and water for some relief. She reports eating well without any restriction in her diet other than having some difficulty with breads from dry mouth. She is swallowing without discomfort and denies having dysphasia or having cough/choking with swallowing. She continues to have patches of skin hypopigmentation bilaterally and is using lotion regularly for dryness. She has occasional ringing in the right greater than left ear which only lasts a few seconds at a time and happens a couple times per week, she thinks this is improving. PEG tube was removed in January and she has done a pretty good job in sustaining her weight. She believes her voice is still slightly altered. She denies any changes in vision and denies any tingling or numbness in either upper extremity. She believes that her energy is much improved and she is working part-time without having much difficulty. She denies having any cough, shortness breath, or hemoptysis. She denies having any other problems or concerns at this time. I have reviewed the medical, surgical, and other pertinent history in details and have updated medication and allergy information in the electronic medical record. Review of Systems: A 12-point review of systems was completed and was negative except for what is noted in the HPI/Interval History and by the nurse. Height/Weight/BMI: Height: 5 ft 2 in Weight: 165.3 lbs (185 lbs at end of treatment) Vital Signs Temperature 97.5 F L 04/07/18 14:31 Temperature Source Oral 04/07/18 14:31 Pulse Rate 69 04/07/18 14:31 Respiratory Rate 16 04/07/18 14:31 Physical Exam: ECO KARNOFSKY SCORE: 90% CONSTITUTIONAL: Well-developed, well-nourished, and in no apparent distress. HEENT: Mucous membranes are dry. No evidence of mucositis or thrush or other lesions noted.. Patient is edentulous. No trismus. Pupils are equal, round, and reactive to light and accommodation. Extraocular movements are intact. Sclerae are anicteric. no palpable lesions or asymmetry with BOT palpation, somewhat limited due to gag reflex. NECK: Supple,with no thyromegaly, and non-tender. Trachea midline. No cervical or supraclavicular adenopathy noted. Bilateral skin patchy hypopigmentation is noted, no dryness. CARDIAC: Regular rate and rhythm. Normal S1, S2. No murmurs, rubs, or gallops. PULMONARY/CHEST: Lungs are clear to auscultation and percussion bilaterally. No wheezes, rhonchi, or crackles noted. No increased work of breathing. ABDOMINAL: Abdomen soft, non-tender, non-distended. PEG tube in place, no skin erythema. No hepatomegaly. Normoactive bowel sounds in all four quadrants. No guarding, rebound. BACK: Straight and aligned. No CVA tenderness. Axial skeleton non-tender to percussion. EXTREMITIES: Full range of motion in all four extremities, with normal strength equally and symmetrically. No evidence of edema. No clubbing. PROCEDURE PERFORMED: Left Flexible Isgi-Jcmhcbgc-Deiasjzbdqyu. CONSENT: Verbal informed consent was obtained prior to the procedure after discussion of risks, benefits, and alternatives and expected outcomes were discussed with the patient. ANESTHESIA: Topical anesthesia administered: Topical Benzocaine 2 sprays given. 5 minutes was allowed for anesthesia PROCEDURE DETAILS: Left nostril was prepared with topical anesthesia without difficulty, a flexible laryngoscope was advanced through the nostril to sequentially examine the nasopharynx, palate, oropharynx, and base of the tongue, epiglottis, larynx, hypopharynx and pyriform sinuses. There were no masses or lesions visible in the nasal cavity or nasopharynx. As the scope was advanced distally, the larynx and hypopharynx were examined. There are no apparent lesions involving the vallecula, larynx, or piriform sinuses. Nomral vocal cord mobility noted. The scope was withdrawn and removed. There was no bleeding noted from the nostril. Patient tolerated the procedure well. 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 From 11/05/17 - 12/23/17 she received 7000 cGy in 35 fractions to the primary base of tongue disease, right neck disease, and concerning left neck lymph nodes with a VMAT technique consisting of 3 arcs. Concurrently 6300 cGy was delivered to the bilateral neck high levels 2 and 1B through 3 as well as level 4 on the right and 5600 cGy to left level 4 and bilateral supraclavicular regions all in one radiation plan. She was treated with concurrent cisplatin 100 mg/m every 3 weeks (cycle one 11/05/17), switched to weekly carbo/taxol for cycle 2 due to tinnitus (started 11/26/17). Patient presents for short interval follow-up about three months after completing definitive chemoradiation therapy. Clinically she has continued to heal well from radiation related toxicity does have persistent relatively severe xerostomia, 20% taste loss, and patchy skin hypopigmentation. Weight has been stable for the last month and diet is unrestricted at this time. I reviewed the PET scan results with the patient demonstrating mild increased activity in the base of tongue but improvement in this area as well as improvement in the neck adenopathy, I reviewed that this persistent increased uptake may be related to normal healing and not necessarily related to disease persistence. There is no evidence of disease on exam. Plan: I reviewed management recommendations including continuing skin lotion and UV radiation avoidance. Recommend continuing water and Biotene for dry mouth, instructed to consider humidifier and will consider pilocarpine at 6 months if there is no improvement. I discussed with her the usual timing for resolution of radiation toxicities and believe that she is improving as expected. She was evaluated by ENT on 01/13/2018 and reportedly had no evidence of disease on exam (obtaining these records), clinically on my exam there is also no evidence of disease. She will have a routine follow-up with Dr. Mattson in 2 months and will have a PET scan completed in 3 months, I will plan to see her following the PET scan to review the images and complete a physical exam. 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 Port removal will be determined by medical oncology. I answered all the patient's questions and she was instructed to call with any further questions or concerns in the interim. Pierce Pascal DO, Security Incident Handler, Department of Radiation Oncology [facility] 04/07/18 1523 <Electronically signed by Pierce Pascal DO> Date Pierce Pascal DO CC: Magalie Mattson MD; Gloria Goode MD Signed ESTABLISHED VISIT Observed: 04/03/2018 Status: UNK Source: [facility] 1:42 PM [facility] REPOSITORY Chief Complaint cancer follow up History of Present Illness Ms. FCO GARNETT, is a 47 year old female with T3N2M0 SCCa P16+ right BOT cancer. She completed chemoradiation therapy 12/23/17. She is feeling well. Dysphagia is stable. Odynophagia is improving. Still with continued soreness on the anterior portion of her tongue. Some relief with magic mouthwash. She continues to tolerate a regular diet well and her weight remains stable. She presents for followup t davy for review of PET scan from 03/28/18. PET scan showed a max SUV of 4.6 within the BOT. I personally reviewed her PET scan images and this appears more diffuse than a discrete area. She had complete response in her neck and no evidence of metastasis. History: Dx: T3N2M0 SCCa, P16+ Right BOT 09/22/17: CT neck with contrast a right base of tongue mass which crosses the midline and involves nearly the entire BOT along with multiple (at least 3) necrotic/pathologic lymphadenopathy along with a few other enhancing lymph nodes. Largest cystic right neck mass measures 4cm. 09/23/17: Dr. Gaitan OR for triple endoscopy and biopsy which returned +inv SCCa (P16+) 10/04/17: OR for triple endoscopy/tumor mapping 10/07/17: CT chest: no evidence of pulmonary metastasis 11/05/17: Began chemoradiation therapy with cisplatin switched to carboplatin and paclitaxel 12/23/17: Completed chemoradiation 03/28/2018: 3 month post treatment PET - max SUV of 4.6 within the BOT, area appears more diffuse than a discrete area. She had complete response in her neck and no evidence of metastasis. 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 all other systems have been reviewed and are negative for complaint. Active Problems Cancer of base of tongue (141.0) (C01) Encounter for pre-operative examination (V72.84) (Z01.818) Metastatic squamous cell carcinoma to lymph node (196.9) (C77.9) Surgical History History of Gallbladder Surgery History of Hysterectomy Social History Currently working Former smoker (V15.82) (Z87.891) Occasional alcohol use from significant other (V61.03) (Z63.5) Allergies No Known Allergies Recorded By: Trisha Babcock; 10/02/2017 3:41:33 PM Current Meds First-Mouthwash BLM Mouth/Throat Suspension; 5ml swish and swallow 3 times a day after meals; Therapy: 06Mar2018 to (Last Rx:06Mar2018) Requested for: 11Mar2018 Ordered Rx By: Magalie Mattson; Dispense: 0 Days ; #:1 X 237 ML Bottle; Refill: 2;For: Cancer of base of tongue, Mucositis; MARCIAL = N; Verified Transmission to [facility] 6232 Chantix 1 MG Oral Tablet; Therapy: [id number] to Recorded Rx By: MILENA; Dispense: 30 Days ; #:60; Refill: 0; MARCIAL = N; Record; Last Updated By: Trisha Babcock; 10/02/2017 8:44:17 AM Chantix Starting Month Larry 0.5 MG X 11 AND 1 MG X 42 Oral Tablet; Therapy: 18Sep2017 to Recorded Rx By: MILENA; Dispense: 28 Days ; #:53; Refill: 0; MARCIAL = N; Record; Last Updated By: Trisha Babcock; 10/02/2017 8:44:17 AM Dexamethasone 4 MG Oral Tablet; Therapy: 04Nov2017 to Recorded Rx By: GAUDENCIO; Dispense: 10 Days ; #:10; Refill: 0; MARCIAL = N; Record; Last Updated By: Ivett Dillon; 01/13/2018 1:15:16 PM Fluconazole 100 MG Oral Tablet; Therapy: [id number] to Recorded Rx By: DEVIN; Dispense: 14 Days ; #:15; Refill: 0; MARCIAL = N; Record; Last Updated By: Ivett Dillon; 01/13/2018 1:15:17 PM Gabapentin 300 MG Oral Capsule; Therapy: 06Nov2017 to Recorded Rx By: DEVIN; Dispense: 16 Days ; #:100; Refill: 0; MARCIAL = N; Record; Last Updated By: Ivett Dillon; 01/13/2018 1:15:16 PM Levothyroxine Sodium 50 MCG Oral Tablet; Therapy: 20Sep2017 to Recorded Rx By: MILENA; Dispense: 30 Days ; #:30; Refill: 0; MARCIAL = N; Record; Last Updated By: Trisha Babcock; 10/02/2017 8:44:17 AM Lidocaine Viscous 2 % Mouth/Throat Solution; Therapy: 19Nov2017 to Recorded Dispense: 4 Days ; #:240; Refill: 0; MARCIAL = N; Record; Last Updated By: Ivett Dillon; 01/13/2018 1:15:17 PM Lidocaine-Prilocaine 2.5-2.5 % External Cream; Therapy: [id number] to Recorded Rx By: AMBER; Dispense: 30 Days ; #:30; Refill: 0; MARCIAL = N; Record; Last Updated By: Ivett Dillon; 01/13/2018 1:15:16 PM OLANZapine 10 MG Oral Tablet; Therapy: [id number] to Recorded Rx By: AMBER; Dispense: 15 Days ; #:15; Refill: 0; MARCIAL = N; Record; Last Updated By: Ivett Dillon; 01/13/2018 1:15:17 PM Ondansetron HCl - 4 MG Oral Tablet; Therapy: [id number] to Recorded Rx By: AMBER; Dispense: 30 Days ; #:30; Refill: 0; MARCIAL = N; Record; Last Updated By: Ivett Dillon; 01/13/2018 1:15:17 PM OxyCODONE HCl - 5 MG/5ML Oral Solution; Therapy: [id number] to Recorded Rx By: DEVIN; Dispense: 20 Days ; #:600; Refill: 0; MARCIAL = N; Record; Last Updated By: Ivett Dillon; 01/13/2018 1:15:16 PM SSD 1 % External Cream; Therapy: [id number] to Recorded Rx By: DEVIN; Dispense: 15 Days ; #:50; Refill: 0; MARCIAL = N; Record; Last Updated By: Ivett Dillon; 01/13/2018 1:15:16 PM TraMADol HCl - 50 MG Oral Tablet; Therapy: [id number] to Recorded Rx By: CLARK; Dispense: 7 Days ; #:28; Refill: 0; MARCIAL = N; Record; Last Updated By: Ivett Dillon; 01/13/2018 1:15:17 PM Physical Exam Constitutional: General appearance: Appears older than stated age, well-nourished, well groomed. No acute distress. Communication: Normal communication Psychiatric: Oriented to person, place and time. Normal mood and affect. Neurologic: Cranial nerves II-XII grossly intact and symmetric bilaterally. Head and Face: Head: Atraumatic with no masses, lesions or scarring. Face: Normal symmetry, no paralysis, synkinesis or facial tic. No scars or deformities. TMJ: Normal, no trismus. Eyes: Conjunctiva not edematous or erythematous Ears: External inspection of ears with no deformity, scars or masses. EAC patent, no cerumen. TMs intact no ARACELI Nose: External inspection of nose: No nasal lesions, lacerations or scars. Septum midline, patent bilaterally Oral Cavity/Mouth: Oral cavity and oropharynx mucosa moist. Her previous mucositis is greatly improved but she still has some mild erythema of the posterior soft palate. No visible erythema or ulceratio n intraorally. Mild tenderness at the right BOT but no palpable mass. See scope below. Neck/Lymphatic: The previous right pathologic lymphadenopathy now resolved, significant skin barron bilaterally healing well. Cardiovascular: Examination of peripheral vascular system shows no clubbing or cyanosis. Respiratory: No respiratory distress increased work of breathing. Inspection of the chest with symmetric chest expansion and normal respiratory effort. Skin: No rashes in the head or neck, +acute radiation barron healing slowly Results/Data I personally reviewed available images with my findings as documented above in the HPI. Procedure PROCEDURE NOTE: Recommended flexible nasopharyngoscopy AND laryngoscopy. Risks, benefits, personnel and alternatives were explained. The patient wished to proceed. S/he was re-identified. PROCEDURE: Flexible nasopharyngoscopy and laryngoscopy PREOPERATIVE DIAGNOSIS: BOT cancer POSTOPERATIVE DIAGNOSIS: Same as above INDICATIONS: Inability to tolerate mirror exam ANESTHESIA: 4% lidocaine and 0.5% phenylephrine PROCEDURE: With the patient sitting upright topical anesthesia and vasoconstriction was applied with spray to the right side(s) of the nose. After waiting an appropriate period of time for anesthesia/va soconstriction to become effective, a flexible laryngoscope was passed through the right side(s) of the nose. Nasopharynx, oropharynx, hypopharynx and larynx were examined. FINDINGS: The nasopharynx was normal without any lesions or masses visualized. Upon entrance into the oropharynx the previous right BOT mass is now gone. There is significant radiation edema. The previo us ulceration in the right vallecula is now improved. Still very edematous. No visible mass. Mild pooling of secretions (stable). True vocal fold movement was normal with edema. The patient's airway was widely patent with no evidence of obstruction. Patient tolerated the procedure well, and there were no complications. 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 She completed chemoradiation in 12/11. No evidence of discrete mass visit today on physical exam or nasop haryngoscopy. I personally reviewed her PET scan which shows residual FDG avidity in the right oropharynx/BOT but on my personal review this is diffuse and not discrete. No visible mass. Discussed obser vation versus biopsy but at this time as she is healing I recommend observation. Recommend followup in 2 months, with repeat PET scan in 3 months. Patient to followup within the next two months if she e xperiences any increased pain, bleeding, dysphagia, odynophagia, or any other H/N symptom lasting >1 week . Patient Discussion/Summary Dr. Mattson evaluated you today. Your care plan is outlined below: -- we will get another PET scan at the end of May or beginning of June -- come see us if you notice bleeding/ increased pain -- Follow up with Dr. Mattson in 2 months. This appointment was scheduled at the end of your visit today. If you need to reschedule, please call the office at [phone]. Please keep in mind that last minute cancellations often result in delayed follow-up appointments. Dr. Mattson makes every effort to run on time for your appointments. Therefore, if you are more than 30 minutes late for your appointment, unrelated to a scan or another appointment such as chemotherapy or radiation, your appointment will need to be rescheduled to another day. We appreciate your understanding. Signatures Electronically signed by : Magalie Mattson MD; Apr 03 2018 1:42PM EST (Author) NM PET W/ CT SCAN Observed: 03/28/2018 Status: C Source: [facility] TO 5:10 PM [facility] REPOSITORY Exam Date/Time: 03/28/2018 19:00 EDT Reason for Exam: CANCER OF BASE OF TONGUE METASTATIC SQUAMOUS CELL CARCINOMA TO LYMPH NODE Addendum ADDENDUM: The prior PET-CT scan dated 10/14/2017 is now available for comparison. The comparison study demonstrated heterogeneous hypermetabolism at the base of the tongue, much more extensive than seen on today's study. The max SUV of this activity on the prior study measures 15.5, whereas the mild amount of activity seen on today's study demonstrates a max SUV of 4.7. In addition, the large, centrally photopenic lymph cesar mass identified in the right neck has markedly decreased in both size and metabolism. Currently, only a tiny lymph node remains in the posterior triangle, with a max SUV of 2.3; previously, the max SUV of this mass was approximately 8.9. No new sites of metastatic disease are present on today's study. FINAL REPORT Dictated: 04/02/2018 4:02 pm Leidy Jackman MD Signed (Electronic Signature): 04/02/2018 4:02 pm Signed by: Leidy Jackman MD Technologist: Report STUDY: NM PET w/ CT Scan Skull Base to Midthigh; 03/28/2018 7:00 pm INDICATION: CANCER OF BASE OF TONGUE METASTATIC SQUAMOUS CELL CARCINOMA TO LYMPH NODE. Status post chemoradiation. COMPARISON: No recent relevant correlated imaging. Note that I reviewed the ENT note in the physician portal dated 02/20/2018. ACCESSION NUMBER(S): [id number] ORDERING CLINICIAN: Magalie Mattson TECHNIQUE: DIVISION OF NUCLEAR MEDICINE POSITRON EMISSION TOMOGRAPHY (PET-CT) The patient received an intravenous dose of 16.48 mCi of Fluorine- 18 fluorodeoxyglucose (FDG). Positron emission tomographic (PET) images from skull base to mid-thigh were then acquired after a one hour delay. Also acquired was a contemporaneous low dose noncontrast CT scan performed for attenuation correction of PET images and anatomic localization. The PET and CT images were digitally fused for display. All images were acquired on a combined PET-CT scanner unit. Some areas of FDG accumulation may be described in standardized uptake value (SUV) units. CODING: Exam Date/Time: 03/28/2018 19:00 EDT Report Subsequent Treatment Strategy (PS) CALIBRATION: Dose [id number] Interval (mins): Mediastinal bloodpool SUV (normal 1.5-2.5): Blood glucose: 103 mg/dL FINDINGS: NECK AND CHEST: A small area of increased FDG metabolism is identified at the base of the tongue, with a max SUV of 4.6. There is no evidence for malignant intensity lymphadenopathy in the neck. Note that evaluation of the chest and upper abdomen is somewhat limited due to artifact from the patient's arms, which were down by her side during imaging. Within this limitation, there is no evidence for a malignant intensity pulmonary nodule nor for malignant intensity lymphadenopathy within the chest. ABDOMEN AND PELVIS: Within the limitation of out of field artifact as noted above, no evidence for malignancy within the soft tissues of the abdomen and pelvis. Expected, physiologically excreted activity is identified within the liver, spleen, kidneys and bowel. Note of what appears to be surgical absence of the gallbladder. MUSCULOSKELETAL: No evidence for osseous metastases. A small area of increased tracer uptake posterior to the left scapula in the posterior left chest wall may be related to inflammation. IMPRESSION: 1. Small area of increased FDG metabolism at the base the tongue, with a max SUV of 4.6. The ENT note dated 02/20/2018 described radiation edema and ulceration in the region of the vallecula, epiglottis and aryepiglottic folds. It is possible that this reflects persistent inflammation, but malignancy is not fully excluded. Please correlate clinically., 2. No evidence for metastatic disease. Specifically, the right neck nodes described in the ENT note do not demonstrate hypermetabolism, suggesting a good response to treatment. This study was interpreted at [facility]. FINAL REPORT Dictated: 04/01/2018 2:17 pm Leidy Jackman MD Signed (Electronic Signature): 04/01/2018 2:17 pm Signed by: Leidy Jackman MD Technologist: Report last revised on 04/02/2018 16:02 EST by Leidy Jackman MD ONCOLOGY VISIT REPORT Observed: 03/12/2018 Status: F Source: [place] 1:33 PM [facility] REPOSITORY [facility] [address] [place] [id number] OFFICE VISIT Date of Service: 03/12/18 1322 MR#: [id number] Acct: [id number] Name: FCO GARNETT Ladonna Rep #: [id number] : 1970 From: Gloria Goode MD Age/Sex: 47/F Location: OMD Status: Signed - Problem List (1) Tongue cancer Status: Chronic Comment: HPV + (2) Regional lymph node metastasis present Status: Chronic (3) Tinnitus Status: Resolved - Date of Service Date of Service:: 03/12/18 - Chief Complaint Tongue cancer - History of Present Illness Patient is a 46-year-old female, smoker till September 2017 who presented with a painless enlarging right neck mass since July 2017. Was seen by Dr. 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 CAT scan of the neck in August 2017 confirmed the mass measuring up to 3.6 cm in maximum diameter with right neck necrotic adenopathy measuring up to 3.9 cm in maximum diameter. At least 3 pathologic nodes identified on imaging. The mass was felt to cross the midline and involve the right lingual tonsil and the right aryepiglottic fold. Patient has lost only a few pounds of weight only recently and a feeding tube was placed by Dr. Mattson and she was referred for definitive chemoradiation. Patient elected to come to [facility] close to home. PET/CT staging September 2017 showed no evidence of distant metastatic disease. Treatment: Combined radiation therapy and high-dose cisplatin (X1) November 05, 2017, switched to weekly Carbo-Taxol November 26, 2017 due to toxicity (Tinnitus) . 7000 cGy of 6 MV photons in 35 fractions to the primary base of tongue disease, right neck disease, and concerning left neck lymph nodes with a VMAT technique consisting of 3 arcs. Concurrently 6300 cGy was delivered to the bilateral neck high levels 2 and 1B through 3 as well as level 4 on the right and 5600 cGy to left level 4 and bilateral supraclavicular regions all in one radiation plan. 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 UNSURE OF WHICH ONE HYSTERECTOMY 1994 Tongue cancer Social History Social History: No changes Smoking Status Former smoker Review of Systems Constitutional:: Reports: Fatigue - Gradually improving and resuming normal activities. Denies: Fever, Sweats, Weight loss, Appetite change, Chills Cardiovascular:: Denies: Chest pain, Palpitations, Dyspnea on exertion, Orthopnea, PND, Shortness of breath Respiratory: Denies: Cough, Hemoptysis, Shortness of Breath, Wheezing Gastrointestinal:: Reports: - - Mouth is dry, but has gradually resumed oral intake, PEG tube removed. Denies: Abdominal pain, Nausea, Vomiting, Diarrhea, Constipation, Hematochezia Genitourinary: Denies: Dysuria, Hematuria, 15, Flank pain Musculoskeletal:: Denies: Back pain, Myalgia, Arthralgia Skin: Denies: Rash, Skin Changes, Wounds Neurological:: Denies: Headache, Dizziness, Visual changes, Tinnitus - Resolved, Hearing loss Psychiatric: Denies: Anxiety, Depression, Homicidal Ideations, Suicidal Ideations Vital Signs Height 5 ft 2 in Weight: 76.113 kg Weight in Pounds 167.8 lbs BMI 34.3 Pulse Ox 92 - Physical Exam General: Alert, Oriented x3, No apparent distress, - - ECOG 1 HEENT: Atraumatic, PERRLA, EOMI, Normocephalic Oropharynx:: Dry mucosa Neck:: Supple, Trachea midline, - - Port okay. Negative for: JVD, bilateral Cardiac:: Regular rate, Regular rhythm, Normal S1, Normal S2. Negative for: Murmur Lungs: Clear to auscultation, Excusion symmetrical. Negative for: Rhonchi, Wheezes Abdomen:: Bowel sounds x 4, Soft, Non-tender, Non-distended. 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 The patient is at least clinical prognostic stage II for HPV positive head and neck cancer (T3, N1, MX). She is anatomic stage IV (T3, N2, Mx) by AJCC UICC 2017. She completed concomitant chemoradiation October-November,. She received 1 cycle of high-dose cisplatin then switched to weekly carbotaxol due to tinnitus which gradually resolved. Plan: 1- follow-up in 1 mon . 2-PET/CT scheduled March 28, 2018 3-Follow-up with ENT as scheduled Patient seen impression and plan reviewed Medications: Prescriptions This Visit Medication Instructions Recorded Primary Care Provider: Felisa Abbott Referring Provider: Gloria Goode MD 03/12/18 1333 <Electronically signed by Gloria Goode MD> Date Gloria Goode MD Cosigner Signature: Date (if applicable) CC: THYROID STIM HORMONE Collected: 03/12/2018 Status: F Source: [facility] (TSH) 1:12 PM [facility] REPOSITORY TYPE CODE TESTS RESULT OUT OF RANGE REFERENCE UNITS LAB L501.9520 0.358-3.74 uIU/mL Normal TSH 3.31 Performed By: #### L501.9520, L506.0400 #### [facility] [address] [place], [address] T4 FREE DIRECT Collected: 03/12/2018 Status: F Source: [facility] 1:12 PM [facility] REPOSITORY TYPE CODE TESTS RESULT OUT OF RANGE REFERENCE UNITS LAB L506.0400 0.76-1.46 ng/dL Normal T4 FREE 0.90 DIRECT Performed By: #### L501.9520, L506.0400 #### [facility] [address] [place], [address] CBC W/DIFF, AUTOMATED Collected: 03/12/2018 Status: C Source: [facility] 12:53 PM [facility] REPOSITORY Order Comment: Reason for Laboratory Test . TYPE CODE TESTS RESULT OUT OF RANGE REFERENCE UNITS LAB L100.1000 4.4-11.0 K/mm3 Low WBC 4.1 LAB L100.1200 4.2-5.4 M/mm3 Low RBC 4.03 LAB L100.1300 12.0-15.0 g/dl Normal HGB 12.5 LAB L100.1400 37-47 % Normal HCT 39.9 LAB L100.1500 81-99 fL Normal MCV 99.0 LAB L100.1600 27.0-32.0 pg Normal MCH 31.0 LAB L100.1700 32-36 g/gl Low MCHC 31.3 LAB L100.1810 11.6-14.6 % Normal RDW CV 13.1 LAB L100.1820 35.1-43.9 fl High RDW SD 47.4 LAB L100.1900 150-450 K/mm3 Normal PLT 215 LAB L100.2000 6.2-12.0 fl Normal MPV 9.6 LAB L100.2100 47-70 % High NEUT% 83.4 LAB L100.2200 19-41 % Low LY% 7.7 LAB L100.2300 0-10 % Normal MONO% 6.0 LAB L100.2400 0-5 % Normal EO% 2.7 LAB L100.2500 0-1 % Normal BASO% 0.2 LAB L100.2550 0.0-0.9 % Normal IM GRAN % 0.000 Result Comment: IG% - Immature Granulocytes (promyelocytes, myelocytes and metamyelocytes) > 1% indicates that a LEFT SHIFT is Present. LAB L100.2620 2.0-7.7 X10 3/uL Normal Absolute Neut 3.5 LAB L100.2720 0.83-4.51 X10 3/ul Low Absolute Lymph 0.32 LAB L100.4500 SMEAR Normal COMMENT Result Comment: LYMPHOPENIA NOTED LAB L100.5500 ADEQ Normal PLT ADEQUATE EST LAB L100.7000 NORM C AND NORMAL C Normal RED NORM C+C CELL MORPH LAB L100.9900 Normal PATH Reviewed REV Result Comment: AMENDED REPORT 03/13/18 1340 PATH REV previously reported as: September radha Performed By: #### L100.0100, L500.4050 #### [facility] [address] [place], [address] COMPREHENSIVE METABOLIC Collected: 03/12/2018 Status: F Source: [facility] 12:53 PM [facility] REPOSITORY Order Comment: Reason for Laboratory Test . TYPE CODE TESTS RESULT OUT OF RANGE REFERENCE UNITS LAB L501.0100 74-106 mg/dL Normal GLU 89 Result Comment: Please note revised GLUCOSE reference range effective 2017. LAB L501.1000 7-18 mg/dL Normal BUN 10 LAB L501.1100 0.55-1.02 mg/dL Normal CREAT,SERUM 0.67 Result Comment: The validity of the calculated GFR AND GFRAA in patients over 70 years has not been determined. Clinical correlation is essential. LAB L501.1110 >60 mL/min Normal EST GFR 100 Result Comment: Non- GFR Calc LAB L501.1115 >60 mL/min Normal EST GFR - AA 121 Result Comment: GFR Calc LAB L501.1255 ml/min Normal Estimated CRCL 82.10 LAB L501.1300 10-20 RATIO Normal BUN/CRE 14.9 LAB L501.1500 6.4-8. g/dL Normal 2 T PROT 7.2 LAB L501.1800 3.2-5. g/dL Normal 0 ALB 3.6 LAB L501.1950 2.2-4. g/dL Normal 2 GLOB 3.6 LAB L501.2000 0.9-2. RATIO Normal 4 A/G 1.0 LAB L501.2200 8.5-10 mg/dL Normal .1 CA 8.5 LAB L501.4100 15-37 U/L Normal AST 17 LAB L501.4305 45-117 U/L Normal ALK P 71 LAB L501.4405 13-56 U/L Normal ALT 27 LAB L501.4600 0.20-1 mg/dL Normal .00 T BILI 0.40 LAB L501.5300 136-14 mmol/L Normal 5 NA 140 LAB L501.5600 3.5-5. mmol/L Normal 1 K 3.8 LAB L501.5900 98-107 mmol/L High CL 108 LAB L501.6100 21.0-3 mmol/L Normal 2.0 CO2 27.0 LAB L501.6200 5-15 Normal GAP 5 Performed By: #### L100.0100, L500.4050 #### [facility] [address] [place], [address] ESTABLISHED VISIT Observed: 02/20/2018 Status: UNK Source: [facility] 2:14 PM [facility] Chief Complaint cancer follow up History of Present Illness Ms. FCO GARNETT, is a 47 year old female with T3N2M0 SCCa P16+ right BOT cancer. She completed chemoradiation therapy 12/23/17. She is feeling better and better. She is much improved in terms of her dy sphagia and odynophagia. She is actually eating! She is on a near regular diet. She has not used her feeding tube since last visit 01/11. Weight is stable (she varies between 165-175lbs). Her severe radi ation barron to her neck continue to heal (some dry skin remaining). She denies any fever, chills, pain, nausea and vomiting. History: Dx: T3N2M0 SCCa, P16+ Right BOT 09/22/17: CT neck with contrast a right base of tongue mass which crosses the midline and involves nearly the entire BOT along with multiple (at least 3) necrotic/pathologic lymphadenopathy along with a few other enhancing lymph nodes. Largest cystic right neck mass measures 4cm. 09/23/17: Dr. 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 all other systems have been reviewed and are negative for complaint. 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) (C77.9) Mucositis (528.00) (K12.30) Surgical History History of Gallbladder Surgery History of Hysterectomy Social History Currently working Former smoker (V15.82) (Z87.891) Occasional alcohol use from significant other (V61.03) (Z63.5) Allergies No Known Allergies Recorded By: Trisha Babcock; 10/02/2017 3:41:33 PM Current Meds Chantix 1 MG Oral Tablet; Therapy: 18Sep2017 to Recorded Rx By: MILENA; Dispense: 30 Days ; #:60 TABS; Refill: 0; MARCIAL = N; Record; Last Updated By: Trisha Babcock; 10/02/2017 8:44:17 AM Chantix Starting Month Larry 0.5 MG X 11 AND 1 MG X 42 Oral Tablet; Therapy: 18Sep2017 to Recorded Rx By: MILENA; Dispense: 28 Days ; #:53 TABS; Refill: 0; MARCIAL = N; Record; Last Updated By: Trisha Babcock; 10/02/2017 8:44:17 AM Dexamethasone 4 MG Oral Tablet; Therapy: 04Nov2017 to Recorded Rx By: GAUDENCIO; Dispense: 10 Days ; #:10 TABS; Refill: 0; MARCIAL = N; Record; Last Updated By: Ivett Dillon; 01/13/2018 1:15:16 PM Fluconazole 100 MG Oral Tablet; Therapy: [id number] to Recorded Rx By: DEVIN; Dispense: 14 Days ; #:15 TABS; Refill: 0; MARCIAL = N; Record; Last Updated By: Ivett Dillon; 01/13/2018 1:15:17 PM Gabapentin 300 MG Oral Capsule; Therapy: 06Nov2017 to Recorded Rx By: DEVIN; Dispense: 16 Days ; #:100 CAPS; Refill: 0; MARCIAL = N; Record; Last Updated By: Ivett Dillon; 01/13/2018 1:15:16 PM Levothyroxine Sodium 50 MCG Oral Tablet; Therapy: 20Sep2017 to Recorded Rx By: MILENA; Dispense: 30 Days ; #:30 TABS; Refill: 0; MARCIAL = N; Record; Last Updated By: Trisha Babcock; 10/02/2017 8:44:17 AM Lidocaine Viscous 2 % Mouth/Throat Solution; Therapy: 19Nov2017 to Recorded Dispense: 4 Days ; #:240 SOLN; Refill: 0; MARCIAL = N; Record; Last Updated By: Ivett Dillon; 01/13/2018 1:15:17 PM Lidocaine-Prilocaine 2.5-2.5 % External Cream; Therapy: [id number] to Recorded Rx By: AMBER; Dispense: 30 Days ; #:30 CREA; Refill: 0; MARCIAL = N; Record; Last Updated By: Ivett Dillon; 01/13/2018 1:15:16 PM OLANZapine 10 MG Oral Tablet; Therapy: [id number] to Recorded Rx By: AMBER; Dispense: 15 Days ; #:15 TABS; Refill: 0; MARCIAL = N; Record; Last Updated By: Ivett Dillon; 01/13/2018 1:15:17 PM Ondansetron HCl - 4 MG Oral Tablet; Therapy: 87Eft7888 to Recorded Rx By: AMBER; Dispense: 30 Days ; #:30 TABS; Refill: 0; MARCIAL = N; Record; Last Updated By: Ivett Dillon; 01/13/2018 1:15:17 PM OxyCODONE HCl - 5 MG/5ML Oral Solution; Therapy: 96Vwi3024 to Recorded Rx By: DEVIN; Dispense: 20 Days ; #:600 SOLN; Refill: 0; MARCIAL = N; Record; Last Updated By: Ivett Dillon; 01/13/2018 1:15:16 PM SSD 1 % External Cream; Therapy: [id number] to Recorded Rx By: DEVIN; Dispense: 15 Days ; #:50 CREA; Refill: 0; MARCIAL = N; Record; Last Updated By: Ivett Dillon; 01/13/2018 1:15:16 PM TraMADol HCl - 50 MG Oral Tablet; Therapy: [id number] to Recorded Rx By: CLARK; Dispense: 7 Days ; #:28 TABS; Refill: 0; MARCIAL = N; Record; Last Updated By: Ivett Dillon; 01/13/2018 1:15:17 PM Vitals Vital Signs Recorded: 08Hqh4136 01:01PM Hnzwfa531 lb 8 oz BMI Buovxhhqxt31.81 BSA Calculated1.73 Physical Exam Constitutional: General appearance: Appears older than stated age, well-nourished, well groomed. No acute distress. Communication: Normal communication Psychiatric: Oriented to person, place and time. Normal mood and affect. Neurologic: Cranial nerves II-XII grossly intact and symmetric bilaterally. Head and Face: Head: Atraumatic with no masses, lesions or scarring. Face: Normal symmetry, no paralysis, synkinesis or facial tic. No scars or deformities. TMJ: Normal, no trismus. Eyes: Conjunctiva not edematous or erythematous Ears: External inspection of ears with no deformity, scars or masses. EAC patent, no cerumen. TMs intact no ARACELI Nose: External inspection of nose: No nasal lesions, lacerations or scars. Septum midline, patent bilaterally Oral Cavity/Mouth: Oral cavity and oropharynx mucosa moist. Her previous mucositis is greatly improved. No visible erythema or ulceration intraorally. See scope below. Neck/Lymphatic: The previous right pathologic lymphadenopathy now resolved, significant skin barron bilaterally healing well with no open sores remaining although still dry Cardiovascular: Examination of peripheral vascular system shows no clubbing or cyanosis. Respiratory: No respiratory distress increased work of breathing. Inspection of the chest with symmetric chest expansion and normal respiratory effort. Skin: No rashes in the head or neck, +acute radiation barron healing slowly Abd: PEG minimal granulation tissue, removed without difficulty today Procedure PROCEDURE NOTE: Recommended flexible nasopharyngoscopy AND laryngoscopy. Risks, benefits, personnel and alternatives were explained. The patient wished to proceed. S/he was re-identified. PROCEDURE: Flexible nasopharyngoscopy and laryngoscopy PREOPERATIVE DIAGNOSIS: BOT cancer POSTOPERATIVE DIAGNOSIS: Same as above INDICATIONS: Inability to tolerate mirror exam ANESTHESIA: 4% lidocaine and 0.5% phenylephrine PROCEDURE: With the patient sitting upright topical anesthesia and vasoconstriction was applied with spray to the right side(s) of the nose. After waiting an appropriate period of time for anesthesia/va soconstriction to become effective, a flexible laryngoscope was passed through the right side(s) of the nose. Nasopharynx, oropharynx, hypopharynx and larynx were examined. FINDINGS: The nasopharynx was normal without any lesions or masses visualized. Upon entrance into the oropharynx the previous right BOT mass is now gone. There is significant radiation edema and evidenc e of ulceration consistent with radiation effect to the vallecula, epiglottis and AE folds - this remains with significant healing exudate, only slight improvement compared to previous exam. Mild poolin g of secretions (improvement). True vocal fold movement was normal with edema. The patient's airway was widely patent with no evidence of obstruction. Patient tolerated the procedure well, and there were no complications. 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 She completed chemoradiation 12/23/2017. She is doing well overall and has made great strides since last v isit. Especially in regards to her dysphagia which was severe is now mild and she is tolerating all po with no use of her PEG for 1 month. I feel we can remove her PEG which we did successfully today. I nstructions provided. In regards to her scope exam she continues to show extensive healing ulceration of the BOT and supraglottis. In light of the slow recovery I feel we should delay her PET scan anoth er 1-2 weeks so that this area is less likely to be falsely positive. No evidence of discrete mass visit today. She also developed radiation barron which are healing. All expected side effects. Encourage ment and reassurance provided. Follow up in 6-8 weeks after PET scan 03/27/18. Patient Discussion/Summary Dr. Mattson evaluated you today. Your care plan is outlined below: -- Dr. Mattson removed your PEG tube today. You can change the dressing daily until it heals completely. Clean gently with mild soap and water. -- cetaphil is a good moisturizer to use. -- PET scan in March. -- Follow up with Dr. Mattson after your PET scan. This appointment was scheduled at the end of your visit today. If you need to reschedule, please call the office at [phone]. Please keep in mind th at last minute cancellations often result in delayed follow-up appointments. Dr. Mattson makes every effort to run on time for your appointments. Therefore, if you are more than 30 minutes late for your appointment, unrelated to a scan or another appointment such as chemotherapy or radiation, your appointment will need to be rescheduled to another day. We appreciate your understanding. End of Encounter Meds Chantix 1 MG Oral Tablet; Therapy: 18Sep2017 to Recorded Chantix Starting Month Larry 0.5 MG X 11 AND 1 MG X 42 Oral Tablet; Therapy: 18Sep2017 to Recorded Dexamethasone 4 MG Oral Tablet; Therapy: 04Nov2017 to Recorded Fluconazole 100 MG Oral Tablet; Therapy: 52Wvi6117 to Recorded Gabapentin 300 MG Oral Capsule; Therapy: 06Nov2017 to Recorded Levothyroxine Sodium 50 MCG Oral Tablet; Therapy: 22Sxq3803 to Recorded Lidocaine Viscous 2 % Mouth/Throat Solution; Therapy: 30Duh1005 to Recorded Lidocaine-Prilocaine 2.5-2.5 % External Cream; Therapy: 41Ufs1559 to Recorded OLANZapine 10 MG Oral Tablet; Therapy: 84Rsz6103 to Recorded Ondansetron HCl - 4 MG Oral Tablet; Therapy: 62Gim0811 to Recorded OxyCODONE HCl - 5 MG/5ML Oral Solution; Therapy: 89Sld3826 to Recorded SSD 1 % External Cream; Therapy: 93Yjv0071 to Recorded TraMADol HCl - 50 MG Oral Tablet; Therapy: 58Opy4365 to Recorded Signatures Electronically signed by : Magalie Mattson MD; Feb 20 2018 2:14PM EST (Author) ONCOLOGY VISIT REPORT Observed: 02/10/2018 Status: F Source: [place] 2:34 PM [facility] REPOSITORY [facility] [address] [place] [id number] OFFICE VISIT Date of Service: 02/10/18 1316 MR#: [id number] Acct: [id number] Name: FCO GARNETT Rep #: [id number] : 1970 From: Bette MCCORD Age/Sex: 47/F Location: OMD Status: Signed Subjective - Date of Service Date of Service:: 02/10/18 - Chief Complaint Survivorship Care Planning - History of Present Illness Patient is a 47-year-old female, smoker till September 2017 who presented with a painless enlarging right neck mass since July 2017. Was seen by Dr. 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 CAT scan of the neck in August 2017 confirmed the mass measuring up to 3.6 cm in maximum diameter with right neck necrotic adenopathy measuring up to 3.9 cm in maximum diameter. At least 3 pathologic nodes identified on imaging. The mass was felt to cross the midline and involve the right lingual tonsil and the right aryepiglottic fold. Patient has lost only a few pounds of weight only recently and a feeding tube was placed by Dr. Mattson and she was referred for definitive chemoradiation. Patient elected to come to [facility] close to home. PET/CT staging September 2017 showed no evidence of distant metastatic disease. Treatment: Combined radiation therapy and high-dose cisplatin (X1) November 05, 2017, switched to weekly Carbo-Taxol November 26, 2017 due to toxicity (Tinnitus). 7000 cGy of 6 MV photons in 35 fractions to the primary base of tongue disease, right neck disease, and concerning left neck lymph nodes with a VMAT technique consisting of 3 arcs. Concurrently 6300 cGy was delivered to the bilateral neck high levels 2 and 1B through 3 as well as level 4 on the right and 5600 cGy to left level 4 and bilateral supraclavicular regions all in one radiation plan. Date of First Treatment: 11/05/17 Date of Last Treatment: 12/23/17 - Interval History The patient is presenting to clinic to review treatment summary and for survivorship care planning. Concerns today include continued fatigue, mild dysphagia and temperature variation intolerance. States sleep disturbance improving-she attributes to requiring fewer naps throughout the day. Describes episode of intolerance heat intolerance over the weekend in which she was out in mid-80 degree weather and required a blanket. Taking Synthroid as advised. Reports she was evaluated by Dr. Mattson earlier in December and told exam was good. Plans to have PEG tube removed next week as she has not used it in greater than 1 mo. Appetite good, PO fluid intake likely adequate. Continues to have difficult time with breads but not meat. 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 UNSURE OF WHICH ONE HYSTERECTOMY 1994 Tongue cancer Social History Social History: No changes Smoking Status Former smoker Review of Systems Constitutional:: Reports: Fatigue. Denies: Fever, Sweats, Weight loss, Appetite change, Chills Cardiovascular:: Denies: Chest pain, Palpitations, Dyspnea on exertion, Orthopnea, PND, Shortness of breath Respiratory: Denies: Cough, Hemoptysis, Shortness of Breath, Wheezing Gastrointestinal:: Denies: Abdominal pain, Nausea, Vomiting, Diarrhea, Constipation, Melena, Hematochezia Genitourinary: Denies: Dysuria, Hematuria, 15, Flank pain Musculoskeletal:: Denies: Back pain, Myalgia, Arthralgia Skin: Denies: Rash, Skin Changes, Wounds Neurological:: Reports: Hearing loss - questions whether or not her hearing has changed. Denies: Headache, Dizziness, Numbness, Tingling, Visual changes, Tinnitus - not since the administration of cisplatin Psychiatric: Denies: Anxiety, Depression, Homicidal Ideations, Suicidal Ideations Vital Signs Height 5 ft 2 in Weight: 169 lb Weight in Pounds 169.0 lbs BMI 34.3 Pulse Ox 99 - Physical Exam General: Alert, Oriented x3, No apparent distress HEENT: Atraumatic, Normocephalic Oropharynx:: Negative for: Dry mucosa, Ulcerated lesions Neck:: Supple, Trachea midline, - - skin hyperpigmented, dry. Negative for: JVD, bilateral Cardiac:: Regular rate, Regular rhythm, Normal S1, Normal S2. Negative for: Murmur Lungs: Clear to auscultation, Excusion symmetrical. Negative for: Rhonchi, Wheezes Abdomen:: Bowel sounds x 4, Soft, Non-tender, Non-distended. Negative for: Hepatosplenomegaly Extremities:: Negative for: Cyanosis, Edema Neurological: Neuro grossly intact Skin:: - - port right upper chest. 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 The patient is at least clinical prognostic stage II for HPV positive head and neck cancer (T3, N1, MX). She is anatomic stage IV (T3, N2, Mx) by AJCC UICC 2017. She completed concomitant chemoradiation October-November,. She received 1 cycle of high-dose cisplatin then switched to weekly carbotaxol due to tinnitus which gradually improved. 1. BOT ca- Had follow up with Dr. Mattson and underwent mirror and fiberoptic exam. Will request Dr. Solorzano note for review. Plans PEG tube removal 02/20/18. Reviewed treatment summary and survivorship care plan documentation. Copies of which are provided to the patient and all members of her health care team. Engaged in lengthy conversation regarding potential residential/late side effects associated with chemotherapy exposure, recommendations for follow up and signs/symptoms of concern that should be report in between visits. Healthy living recommendations:- Today we spent time discussing healthy lifestyle modifications inclusive of balanced diet. We also discussed the importance of an exercise regimen of approx 5-6 days a week or physical activity >20 min per day and maintaining a healthy weight as well as abstinence from tobacco products and ETOH. We discussed the appropriate health maintenance screenings for this patient. Continue to follow with pcp for routine health maintanence and management of hypothyroidism. Psychosocial AND spiritual health- She is well supported by significant other and family. Reviewed intimacy and relational concerns. Continues to adjust to life as a cancer survivor. We discussed fear of recurrence, coping strategies and potential resources. To discuss port removal subsequent to post treatment PET. 2. Cold intolerance- h/o hypothyroidism. TSH hasn't been checked since the completion of treatment. Encouraged her to follow up with pcp as she may benefit from assessment of TSH level. 3. Hearing loss- Patient suspects her hearing has changed. Recommended she discuss with her ENT, Dr. Gaitan at next OV 03/03/18. Given ototoxicity she experienced during cisplatin, she may benefit from audiogram. Greater than 50% of this one hour visit was spent in counseling and a significant amount of time was allotted for questions. All the patient's concerns were addressed to his satisfaction. RTO in February after PET/CT to review results. Bette Luevano, MSN, CUSTOMER AGENT, AOCNP Medications: Prescriptions This Visit Medication Instructions Recorded Primary Care Provider: Felisa Abbott Referring Provider: Gloria Goode MD - Problem List (1) Tongue cancer Status: Acute Comment: HPV + (2) Educational circumstance Status: Acute 02/10/18 5724 <Electronically signed by Bette Luevano NP-C> Date Bette JOSEPHC Cosigner Signature: Date (if applicable) CC: END OF TREATMENT Observed: 02/10/2018 Status: F Source: [place] SUMMARY 1:58 PM [facility] REPOSITORY [facility] [address] [place] [address] End of Treatment Summary Date of Service: 02/06/18914 MR#: [id number] Acct: [id number] Name: FCO GARNETT Rep #: [id number] : 1970 From: Bette Luevano SERVICE LOSS CONTROL CONSULTANTHyacinth Age/Sex: 47/F Location: OMD Status: Signed General Information Primary Care Provider:: Felisa Abbott Surgeon Name: Magalie Mattson Radiation Oncologist:: Pierce Pascal Medical Oncologist:: Gloria Goode Other Providers:: Dr. Glenroy Gaitan ([place]) Treatment Summary Problem List: All Active Problems (Last Reviewed 02/10/18 @ 13:02 by Belle Leung) Tinnitus (Acute) Tongue cancer (Acute) Regional lymph node metastasis present (Acute) Educational circumstance (Acute) Encounter for adjustment or management of vascular access device (Acute) Cancer Type / Location / Histology Subtype:: Squamous cell carcinoma of the base of tongue, HPV positive Diagnosis Date [year]:: 09/23/17 Stage:: IV - anatomic stage IV (T3, N2, Mx) prognostic stage II Surgery:: No Radiation:: Yes Body area treated:: Base of tongue, bilateral neck and supraclavicular regions End Date [year]:: 11/05/17-12/23/17 Systemic Therapy [chemotherapy, hormonal therapy, other]:: Yes Name of Agents Used and End Date of Usage:: high dose cisplatin x1 11/05/17 (d/t ototoxicity) weekly carboplatin/Taxol 11/26/17- 12/17/17 Persistent symptoms of side effects at completion of treatment:: Yes If yes, enter type[s]:: Fatigue, mild dysphagia, itchy skin neck externally Follow-up Care Plan Need for ongoing [adjuvant] treatment for cancer:: No Schedule of Clinical Visits Coordination Provider:: Gloria Goode - PET/CT When/How often:: 12 weeks post treatment (03/21/18) Coordination Provider:: Gloria Goode When/How often:: Every 1-3 mo x1 yr, 2-6 mo x1 yr, 4-8 mo x3 yrs, then yearly Coordination Provider:: Magalie Mattson - Including mirror and fiberoptic examination When/How often:: Every 1-3 mo x1 yr, 2-6 mo x1 yr, 4-8 mo x3 yrs, then yearly Cancer Surveillance/Other Test Coordination Provider:: Felisa Abbott - PCP already manages hypothyroidism When/How often:: TSH level periodically Cancer Surveillance/Symptoms: Please continue to see your primary care provider for all general health care recommended for a F your age, including cancer screening tests. Any symptoms should be brought to the attention of your provider: * Anything that represents a brand new symptom * Anything that represents a persistent symptom * Anything you are worried about that might be related to the cancer coming back Cancer survivors may experience issues with the areas listed below:: Emotional and mental health, Physical functioning, Memory or concentration loss, Fatigue, Weight changes, School/Work, Financial Advice or Assistance, Sexual functioning Cancer Survivor Issues - Help: If you have any concerns in these or other areas, please speak with your doctors or nurses to find out how you can get help with them. A number of lifestyle/behaviors can affect your ongoing health, including the risk for the cancer coming back or developing another cancer. Discuss these recommendations with your doctor or nurse.: Tobacco use/Cessation, Alcohol use, Weight Management [loss/gain], Diet, Sunscreen use, Physical activity - Prepared by MINOO Suresh, PETERSON- C, JAIMEP Delivered on 02/10/18 Other comments:: Prepared by MINOO Suresh, PETERSON-C, AOLAVERNP. Delivered on 02/10/18 02/10/18 1358 <Electronically signed by Bette MCCORD> Date Bette MCCORD Cosigner Signature: Date (if applicable) CC: Felisa Abbott; Pierre Millan MD CBC W/DIFF, AUTOMATED Collected: 02/10/2018 Status: F Source: [place] 12:45 PM [facility] REPOSITORY Order Comment: Reason for Laboratory Test . TYPE CODE TESTS RESULT OUT OF RANGE REFERENCE UNITS LAB L100.1000 4.4-11.0 K/mm3 Low WBC 3.9 LAB L100.1200 4.2-5.4 M/mm3 Low RBC 4.00 LAB L100.1300 12.0-15.0 g/dl Normal HGB 12.5 LAB L100.1400 37-47 % Normal HCT 39.2 LAB L100.1500 81-99 fL Normal MCV 98.0 LAB L100.1600 27.0-32.0 pg Normal MCH 31.3 LAB L100.1700 32-36 g/gl Low MCHC 31.9 LAB L100.1810 11.6-14.6 % Normal RDW CV 13.4 LAB L100.1820 35.1-43.9 fl High RDW SD 48.0 LAB L100.1900 150-450 K/mm3 Normal PLT 214 LAB L100.2000 6.2-12.0 fl Normal MPV 9.6 LAB L100.2100 47-70 % High NEUT% 75.4 LAB L100.2200 19-41 % Low LY% 12.7 LAB L100.2300 0-10 % Normal MONO% 6.5 LAB L100.2400 0-5 % Normal EO% 4.9 LAB L100.2500 0-1 % Normal BASO% 0.5 LAB L100.2550 0.0-0.9 % Normal IM GRAN % 0.000 Result Comment: IG% - Immature Granulocytes (promyelocytes, myelocytes and metamyelocytes) > 1% indicates that a LEFT SHIFT is Present. LAB L100.2620 2.0-7.7 X10 3/uL Normal Absolute Neut 2.9 LAB L100.2720 0.83-4.51 X10 3/ul Low Absolute Lymph 0.49 LAB L100.4500 Normal SMEAR COMMENT COMMENT Result Comment: SLIDE SCANNED - LYMPHOPENIA NOTED. Performed By: #### L100.0100 #### [facility] [place] [address], [address] COMPREHENSIVE METABOLIC Collected: 02/10/2018 Status: F Source: [place] ENRIQUEZ 12:45 PM [facility] REPOSITORY Order Comment: Reason for Laboratory Test . TYPE CODE TESTS RESULT OUT OF RANGE REFERENCE UNITS LAB L501.0100 74-106 mg/dL Normal GLU 96 Result Comment: Please note revised GLUCOSE reference range effective 2017. LAB L501.1000 7-18 mg/dL Normal BUN 11 LAB L501.1100 0.55-1.02 mg/dL Normal CREAT,SERUM 0.65 Result Comment: The validity of the calculated GFR AND GFRAA in patients over 70 years has not been determined. Clinical correlation is essential. LAB L501.1110 >60 mL/min Normal EST GFR 104 Result Comment: Non- GFR Calc LAB L501.1115 >60 mL/min Normal EST GFR - AA 126 Result Comment: GFR Calc LAB L501.1255 ml/min Normal Estimated CRCL 84.62 LAB L501.1300 10-20 RATIO Normal BUN/CRE 17.0 LAB L501.1500 6.4-8. g/dL Normal 2 T PROT 7.0 LAB L501.1800 3.2-5. g/dL Normal 0 ALB 3.3 LAB L501.1950 2.2-4. g/dL Normal 2 GLOB 3.7 LAB L501.2000 0.9-2. RATIO Normal 4 A/G 0.9 LAB L501.2200 8.5-10 mg/dL Normal .1 CA 8.9 LAB L501.4100 15-37 U/L Low AST 14 LAB L501.4305 45-117 U/L Normal ALK P 59 LAB L501.4405 13-56 U/L Normal ALT 19 LAB L501.4600 0.20-1 mg/dL Normal .00 T BILI 0.40 LAB L501.5300 136-14 mmol/L Normal 5 NA 140 LAB L501.5600 3.5-5. mmol/L Normal 1 K 3.7 LAB L501.5900 98-107 mmol/L Normal CL 106 LAB L501.6100 21.0-3 mmol/L Normal 2.0 CO2 26.0 LAB L501.6200 5-15 Normal GAP 8 Performed By: #### L500.4050 #### [facility] [address] [place], [address] ONCOLOGY FOLLOW-UP Observed: 01/20/2018 Status: F Source: [place] VISIT 4:26 PM [facility] REPOSITORY [facility] Medical Records Department [address] [place] [address] Oncology Follow-Up Visit 01/20/18 1602 MR#: [id number] Acct: [id number] Name: FCO GARNETT Rep #: [id number] : 1970 47 From: Pierce Devin DE LA FUENTE PCP: Felisa Abbott Status: REG RCR Y Location: [facility] Date of Service: 01/20/18 Last Clinic Visit: 01/06/18 Diagnosis: Fco Garnett is a diagnosed with AJCC seventh edition stage DAIVD (cT2-3N2bMx), AJCC eighth edition Stage II (cT2-3N1Mx), 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 History of Present Illness: 09/12/2017: Patient underwent CT of the neck with contrast which demonstrated necrotic adenopathy within the right neck specifically at level 3 there is a lymph node measuring 39 x 29 x 26 mm, right neck level 5 lymph node measuring 14 x 18 mm. There is also identified a mass involving the lingual tonsil and extending into the right AE fold measuring about 28 x 36 x 36 mm. 09/16/2017: Patient was evaluated by [facility] for a firm and moderately tender right anterior neck mass ongoing for several weeks. On exam there was noted to be a large mass involving the right greater than left base of tongue down to the vallecula, but unable to complete mirror exam to further evaluate extent due to hyperactive gag reflex. FNA of the neck mass was completed. 09/23/2017: Patient underwent direct laryngoscopy with biopsy. Pathology demonstrated evidence for invasive moderately differentiated squamous cell carcinoma, p16 positive. 10/02/2017: Patient was evaluated by ENT at [facility] on exam the patient was noted to be edentulous, there is a firmness across the entire base of tongue right greater than left, a right pathologically enlarged lymph node which is tender to palpation measures about 4 cm. NPL was performed which showed the mass involving the right base of tongue which extends down into the vallecula and approaches the larynx but does not involve the false vocal cord or true vocal cord, this mass does appear to cross midline but there were no masses or lesions visualized at the epiglottis, AE folds, piriform sinuses, or lateral pharyngeal clement. From 11/05/17 - 12/23/17 she received 7000 cGy in 35 fractions to the primary base of tongue disease, right neck disease, and concerning left neck lymph nodes with a VMAT technique consisting of 3 arcs. Concurrently 6300 cGy was delivered to the bilateral neck high levels 2 and 1B through 3 as well as level 4 on the right and 5600 cGy to left level 4 and bilateral supraclavicular regions all in one radiation plan. She was treated with concurrent cisplatin 100 mg/m every 3 weeks (cycle one 11/05/17), switched to weekly carbo/taxol for cycle 2 due to tinnitus (started 11/26/17). Radiation Treatment History: 1) From 11/05/17 - 12/23/17 she received 7000 cGy in 35 fractions to the primary base of tongue disease, right neck disease, and concerning left neck lymph nodes with a VMAT technique consisting of 3 arcs. Concurrently 6300 cGy was delivered to the bilateral neck high levels 2 and 1B through 3 as well as level 4 on the right and 5600 cGy to left level 4 and bilateral supraclavicular regions all in one radiation plan. She was treated with concurrent cisplatin 100 mg/m every 3 weeks (cycle one 11/05/17), switched to weekly carbo/taxol for cycle 2 due to tinnitus (started 11/26/17). Interval History: Patient returns for a short interval 1 month follow-up after completing chemoradiation therapy. She reports continued improvement of all for radiation related toxicities over the last 2 weeks. Skin has healed much better and she denies having any further peeling other than 2 small sites in the neck, she does have bilateral neck tanning still. She denies having mucositis and denies having any pain in her mouth or on her skin. She continues to use Aquaphor in the areas of skin irritation. Over the last 2 weeks she has progressed in her diet and now can eat most foods. She is use the PEG tube about 4 times in the last week. She believes that her taste and dry mouth are slowly improving but still present. She is also gradually improving in energy level and activity but has not yet gone back to work. She continues to use green tea and baking soda/salt rinses. She no longer uses oxycodone for pain and still takes gabapentin. She denies having any choking with swallowing. She reports that she saw her ENT physician since she was seen last in our clinic and was told that her scope exam showed no evidence of disease. She denies having any changes in hearing or vision. She denies having any cough, shortness breath, or hemoptysis. She denies having any other problems or concerns at this time. I have reviewed the medical, surgical, and other pertinent history in details and have updated medication and allergy information in the electronic medical record. Review of Systems: A 12-point review of systems was completed and was negative except for what is noted in the HPI/Interval History and by the nurse. Height/Weight/BMI: Height: 5 ft 2 in Weight: 173.7 lbs BMI: 34.3 Vital Signs Temperature 98.4 F 01/20/18 12:53 Temperature Source Oral 01/20/18 12:53 Pulse Rate 81 01/20/18 12:53 Respiratory Rate 16 01/20/18 12:53 Physical Exam: ECO KARNOFSKY SCORE: 70%-80% CONSTITUTIONAL: Well-developed, well-nourished, and in no apparent distress. HEENT: Mucous membranes are somewhat moist. There is nearly healed mucositis noted in the visualized oropharynx. Patient is edentulous. No thrush noted. There are no lesions visualized. No trismus. Pupils are equal, round, and reactive to light and accommodation. Extraocular movements are intact. Sclerae are anicteric. NECK: Supple,with no thyromegaly, and non-tender. Trachea midline. No cervical or supraclavicular adenopathy noted. Bilateral skin is hyperpigmented with patchy desquamation. CARDIAC: Regular rate and rhythm. Normal S1, S2. No murmurs, rubs, or gallops. PULMONARY/CHEST: Lungs are clear to auscultation and percussion bilaterally. No wheezes, rhonchi, or crackles noted. No increased work of breathing. ABDOMINAL: Abdomen soft, non-tender, non-distended. PEG tube in place, no skin erythema. No hepatomegaly. Normoactive bowel sounds in all four quadrants. No guarding, rebound. BACK: Straight and aligned. No CVA tenderness. Axial skeleton non-tender to percussion. EXTREMITIES: Full range of motion in all four extremities, with normal strength equally and symmetrically. No evidence of edema. No clubbing. 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 From 11/05/17 - 12/23/17 she received 7000 cGy in 35 fractions to the primary base of tongue disease, right neck disease, and concerning left neck lymph nodes with a VMAT technique consisting of 3 arcs. Concurrently 6300 cGy was delivered to the bilateral neck high levels 2 and 1B through 3 as well as level 4 on the right and 5600 cGy to left level 4 and bilateral supraclavicular regions all in one radiation plan. She was treated with concurrent cisplatin 100 mg/m every 3 weeks (cycle one 11/05/17), switched to weekly carbo/taxol for cycle 2 due to tinnitus (started 11/26/17). Patient presents for short interval follow-up one month after completing definitive chemoradiation therapy. Clinical he she continues to improve and has had more healing of the skin erythema and oropharyngeal mucositis. There is also been a subjective improvement in taste and dry mouth. Pain has improved. She is using the PEG tube was frequently but has lost about 5 pounds since last visit. Plan: I reviewed management recommendations including continuing Aquaphor and UV radiation avoidance for skin toxicity, continued Magic mouthwash, green tea and baking soda/salt rinses. She was given taper instructions for Neurontin as her pain has greatly reduced and she is no longer taking oxycodone. I instructed her to increase intake to maintain her weight, I reviewed that her PEG tube will have to remain in place unless she is able to maintain her weight with p.o. intake only for 1 month. I discussed with her the usual timing for resolution of radiation toxicities and believe that she is improving as expected. She was evaluated by ENT on 01/13/2018 and reportedly had no evidence of disease on exam (obtaining these records), clinically on my exam there is also no evidence of disease. She has been scheduled for a 3 month PET scan on March 21 in [place] which is where her previous PET scan was completed. I will plan to see her in clinic on 03/27/2018 to review these results and for routine exam. I answered all the patient's questions and she was instructed to call with any further questions or concerns in the interim. Pierce Pascal DO, Security Incident Handler, Department of Radiation Oncology [facility] 01/20/18 5693 <Electronically signed by Pierce Pascal DO> Date Pierce Pascal DO CC: Magalie Mattson MD; Gloria Goode MD Signed ESTABLISHED VISIT Observed: 01/13/2018 Status: UNK Source: [facility] ([facility]) 1:45 PM [facility]OSPITALS REPOSITORY Chief Complaint cancer follow up History of Present Illness Ms. FCO GARNETT, is a 47 year old female with T3N2M0 SCCa P16+ right BOT cancer. She completed chemoradiation therapy 12/23/17. She started with cisplatin but developed tinnitus so she was transitioned to carboplatin and paclitaxel (last dose 11/2417). +dysphagia, +odynophagia. She has feeding tube in place. She is restarting PO intake with liquids and soft as tolerated. Weight is stable. She had joão re radiation barron to her neck and this is healing. She denies any fever, chills, pain, nausea and vomiting. History: Dx: T3N2M0 SCCa, P16+ Right BOT 09/22/17 CT neck with contrast a right base of tongue mass which crosses the midline and involves nearly the entire BOT along with multiple (at least 3) necrotic/pathologic lymphadenopathy along with a f ew other enhancing lymph nodes. Largest cystic right neck mass measures 4cm. 09/23/17 Dr. 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 all other systems have been reviewed and are negative for complaint. 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) (C77.9) Mucositis (528.00) (K12.30) Surgical History History of Gallbladder Surgery History of Hysterectomy Social History Currently working Former smoker (V15.82) (Z87.891) Occasional alcohol use from significant other (V61.03) (Z63.5) Allergies No Known Allergies Recorded By: Trisha Babcock; 10/02/2017 3:41:33 PM Current Meds Chantix 1 MG Oral Tablet; Therapy: [id number] to Recorded Rx By: MILENA; Dispense: 30 Days ; #:60 TABS; Refill: 0; MARCIAL = N; Record; Last Updated By: Trisha Babcock; 10/02/2017 8:44:17 AM Chantix Starting Month Larry 0.5 MG X 11 AND 1 MG X 42 Oral Tablet; Therapy: 18Sep2017 to Recorded Rx By: MILENA; Dispense: 28 Days ; #:53 TABS; Refill: 0; MARCIAL = N; Record; Last Updated By: Trisha Babcock; 10/02/2017 8:44:17 AM Levothyroxine Sodium 50 MCG Oral Tablet; Therapy: 20Sep2017 to Recorded Rx By: MILENA; Dispense: 30 Days ; #:30 TABS; Refill: 0; MARCIAL = N; Record; Last Updated By: Trisha Babcock; 10/02/2017 8:44:17 AM Vitals Vital Signs Recorded: [id number] 01:15PM Kgdsty985 lb 8 oz BMI Cohyvffylo27.83 BSA Calculated1.83 Physical Exam Constitutional: General appearance: Appears older than stated age, well-nourished, well groomed. No acute distress. Communication: Normal communication Psychiatric: Oriented to person, place and time. Normal mood and affect. Neurologic: Cranial nerves II-XII grossly intact and symmetric bilaterally. Head and Face: Head: Atraumatic with no masses, lesions or scarring. Face: Normal symmetry, no paralysis, synkinesis or facial tic. No scars or deformities. TMJ: Normal, no trismus. Eyes: Conjunctiva not edematous or erythematous Ears: External inspection of ears with no deformity, scars or masses. EAC patent, no cerumen. TMs intact no ARACELI Nose: External inspection of nose: No nasal lesions, lacerations or scars. Septum midline, patent bilaterally Oral Cavity/Mouth: Oral cavity and oropharynx mucosa moist. moderate mucositis especially posterior soft palate Neck/Lymphatic: The previous right pathologic lymphadenopathy now resolved, significant skin barron bilaterally healing well, small open sores bilateral level 5 Cardiovascular: Examination of peripheral vascular system shows no clubbing or cyanosis. Respiratory: No respiratory distress increased work of breathing. Inspection of the chest with symmetric chest expansion and normal respiratory effort. Skin: No rashes in the head or neck, +acute radiation barron and erythema see above Procedure PROCEDURE NOTE: Recommended flexible nasopharyngoscopy AND laryngoscopy. Risks, benefits, personnel and alternatives were explained. The patient wished to proceed. S/he was re-identified. PROCEDURE: Flexible nasopharyngoscopy and laryngoscopy PREOPERATIVE DIAGNOSIS: BOT cancer POSTOPERATIVE DIAGNOSIS: Same as above INDICATIONS: Inability to tolerate mirror exam ANESTHESIA: 4% lidocaine and 0.5% phenylephrine PROCEDURE: With the patient sitting upright topical anesthesia and vasoconstriction was applied with spray to the right side(s) of the nose. After waiting an appropriate period of time for anesthesia/va soconstriction to become effective, a flexible laryngoscope was passed through the right side(s) of the nose. Nasopharynx, oropharynx, hypopharynx and larynx were examined. FINDINGS: The nasopharynx was normal without any lesions or masses visualized. Upon entrance into the oropharynx the previous right BOT mass is now gone. There is significant radiation edema and evidenc e of ulceration consistent with radiation effect to the vallecula, epiglottis and AE folds. +moderate pooling of secretions. True vocal fold movement was normal with edema. The patient's airway was wide ly patent with no evidence of obstruction. Patient tolerated the procedure well, and there were no complications. 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) (C77.9) Cancer of base of tongue (141.0) (C01) Mucositis (528.00) (K12.30) Provider Impressions Fco Garnett 47 year old female presents today in follow up of her T3N2M0 SCCa, P16+ Right BOT. She completed chemoradiation 12/23/2017. She developed acute mucositis which is slowly improving as well a s severe dysphagia now moderate. She is restarting po intake. She also developed radiation barron which are healing. All expected side effects. Encouragement and reassurance provided. PEG remains in place. Follow up in 6 weeks. PET scan 03/27/18. Patient Discussion/Summary Dr. Mattson evaluated you today. She did not see anything concerning today. Your care plan is outlined below: -- PET recommended for February. This appointment should be scheduled with the fur farmer on your way out today. Please schedule your appointment with Dr. Mattson and then proceed with your paperwork to [facility]. You can also call [phone] to schedule your test. -- Follow up with Dr. Mattson in March. This appointment was scheduled at the end of your visit today. If you need to reschedule, please call the office at [phone]. Please keep in mind that last minute cancellations often result in delayed follow-up appointments. Dr. Mattson makes every effort to run on time for your appointments. Therefore, if you are more than 20 minutes late for your appointment, unrelated to a scan or another appointment such as chemotherapy or radiation, your appointment will need to be rescheduled to another day. We appreciate your understanding. End of Encounter Meds Chantix 1 MG Oral Tablet; Therapy: [id number] to Recorded Chantix Starting Month Larry 0.5 MG X 11 AND 1 MG X 42 Oral Tablet; Therapy: [id number] to Recorded Levothyroxine Sodium 50 MCG Oral Tablet; Therapy: [id number] to Recorded Signatures Electronically signed by : Magalie Mattson MD; Jan 13 2018 1:45PM EST (Author) ONCOLOGY VISIT REPORT Observed: 01/08/2018 Status: F Source: [place] 2:00 PM [facility] REPOSITORY [facility] [place] [address] OFFICE VISIT Date of Service: 01/08/18 1337 MR#: [id number] Acct: [id number] Name: FCO GARNETT Rep #: [id number] : 1970 From: Gloria Goode MD Age/Sex: 47/F Location: OMD Status: Signed - Problem List (1) Tongue cancer Status: Acute Comment: HPV + (2) Regional lymph node metastasis present Status: Acute (3) Tinnitus Status: Acute - Date of Service Date of Service:: 01/08/18 - Chief Complaint Tongue cancer - History of Present Illness Patient is a 46-year-old female, smoker till September 2017 who presented with a painless enlarging right neck mass since July 2017. Was seen by Dr. 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 CAT scan of the neck in August 2017 confirmed the mass measuring up to 3.6 cm in maximum diameter with right neck necrotic adenopathy measuring up to 3.9 cm in maximum diameter. At least 3 pathologic nodes identified on imaging. The mass was felt to cross the midline and involve the right lingual tonsil and the right aryepiglottic fold. Patient has lost only a few pounds of weight only recently and a feeding tube was placed by Dr. Mattson and she was referred for definitive chemoradiation. Patient elected to come to [facility] close to home. PET/CT staging September 2017 showed no evidence of distant metastatic disease. Treatment: Combined radiation therapy and high-dose cisplatin (X1) November 05, 2017, switched to weekly Carbo-Taxol November 26, 2017 due to toxicity (Tinnitus) . 7000 cGy of 6 MV photons in 35 fractions to the primary base of tongue disease, right neck disease, and concerning left neck lymph nodes with a VMAT technique consisting of 3 arcs. Concurrently 6300 cGy was delivered to the bilateral neck high levels 2 and 1B through 3 as well as level 4 on the right and 5600 cGy to left level 4 and bilateral supraclavicular regions all in one radiation plan. 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 UNSURE OF WHICH ONE HYSTERECTOMY 1994 Tongue cancer Social History Social History: No changes Smoking Status Former smoker Review of Systems Constitutional:: Reports: Weakness, Fatigue, Weight loss - Slowly recovering. Denies: Fever, Sweats, Appetite change, Chills Cardiovascular:: Denies: Chest pain, Palpitations, Dyspnea on exertion, Orthopnea, PND, Shortness of breath Respiratory: Denies: Cough, Hemoptysis, Shortness of Breath, Wheezing Gastrointestinal:: Reports: Dysphagia - Less pain and is starting to take oral liquids and soft foods but still dependent on tube feeds. Denies: Abdominal pain, Nausea, Vomiting, Diarrhea, Constipation, Hematochezia Genitourinary: Denies: Dysuria, Hematuria, 15, Flank pain Musculoskeletal:: Denies: Back pain, Myalgia, Arthralgia Skin: Reports: Skin Changes - Healing skin barron on the neck. Denies: Rash, Wounds Neurological:: Denies: Headache, Dizziness, Visual changes, Tinnitus - Resolved, Hearing loss Psychiatric: Denies: Anxiety, Depression, Homicidal Ideations, Suicidal Ideations Vital Signs Height 5 ft 2 in Weight: 80.649 kg Weight in Pounds 177.8 lbs BMI 34.3 Pulse Ox 98 - Physical Exam General: Alert, Oriented x3, No apparent distress, - - ECOG 1 HEENT: Atraumatic, PERRLA, EOMI, Normocephalic Oropharynx:: Dry mucosa Neck:: Supple, Trachea midline, - - Port okay. Negative for: JVD, bilateral Cardiac:: Regular rate, Regular rhythm, Normal S1, Normal S2. Negative for: Murmur Lungs: Clear to auscultation, Excusion symmetrical. Negative for: Rhonchi, Wheezes Abdomen:: Soft, Non-tender, Non-distended, - - PEG tube. Negative for: Hepatosplenomegaly Extremities:: Negative for: Cyanosis, Edema Neurological: Neuro grossly intact Skin:: Redness - Neck from radiation. Negative for: Lesions, Rash, Petechiae, Ecchymosis Psychiatric:: Appropriate affect, Euthymic Lymphatics:: Negative for: Cervical lymphadenopathy, Supraclavicular lymphadenopathy Laboratory Data: Laboratory Tests WBC 3.0 L (4.4-11.0) K/mm3 RBC 3.66 L (4.2-5.4) M/mm3 Hgb 11.4 L (12.0-15.0) g/dl Hct 36.6 L (37-47) % Assessment and Plan 47-year-old female smoker (till September 2017) with HPV positive squamous cell cancer of the base of the tongue with metastases to right neck lymph nodes. The patient is at least clinical prognostic stage II for HPV positive head and neck cancer (T3, N1, MX). She is anatomic stage IV (T3, N2, Mx) by AJCC UICC 2017. She completed concomitant chemoradiation October-November,. She received 1 cycle of high-dose cisplatin then switched to weekly carbotaxol due to tinnitus which gradually improved. Plan: 1 follow-up in 1 mon for survivorship and 2 months with myself. 2 encourage gradual weaning off tube feeds to oral feeds. 3. Follow-up with ENT Patient seen impression and plan reviewed Medications: Prescriptions This Visit Medication Instructions Recorded Levothyroxine [Synthroid] 50 mcg PO DAILY 10/07/17 Primary Care Provider: Felisa Abbott Referring Provider: Gloria Goode MD 01/08/18 1400 <Electronically signed by Gloria oGode MD> Date Gloria Goode MD Cosigner Signature: Date (if applicable) CC: CBC W/DIFF, AUTOMATED Collected: 01/08/2018 Status: F Source: [place] 12:48 PM [facility] REPOSITORY Order Comment: Reason for Laboratory Test . TYPE CODE TESTS RESULT OUT OF RANGE REFERENCE UNITS LAB L100.1000 4.4-11.0 K/mm3 Low WBC 3.0 LAB L100.1200 4.2-5.4 M/mm3 Low RBC 3.66 LAB L100.1300 12.0-15.0 g/dl Low HGB 11.4 LAB L100.1400 37-47 % Low HCT 36.6 LAB L100.1500 81-99 fL High MCV 100.0 LAB L100.1600 27.0-32.0 pg Normal MCH 31.1 LAB L100.1700 32-36 g/gl Low MCHC 31.1 LAB L100.1810 11.6-14.6 % High RDW CV 14.9 LAB L100.1820 35.1-43.9 fl High RDW SD 54.1 LAB L100.1900 150-450 K/mm3 Normal PLT 273 LAB L100.2000 6.2-12.0 fl Normal MPV 8.9 LAB L100.2100 47-70 % High NEUT% 75.3 LAB L100.2200 19-41 % Low LY% 17.8 LAB L100.2300 0-10 % Normal MONO% 5.9 LAB L100.2400 0-5 % Normal EO% 0.7 LAB L100.2500 0-1 % Normal BASO% 0.3 LAB L100.2550 0.0-0.9 % Normal IM GRAN % 0.000 Result Comment: IG% - Immature Granulocytes (promyelocytes, myelocytes and metamyelocytes) > 1% indicates that a LEFT SHIFT is Present. LAB L100.2620 2.0-7.7 X10 3/uL Normal Absolute Neut 2.3 LAB L100.2720 0.83-4.51 X10 3/ul Low Absolute Lymph 0.54 Performed By: #### L100.0100, L500.4050 #### [facility] [address] [place], [address] COMPREHENSIVE METABOLIC Collected: 01/08/2018 Status: F Source: [place] ZOE 12:48 PM [facility] REPOSITORY Order Comment: Reason for Laboratory Test . TYPE CODE TESTS RESULT OUT OF RANGE REFERENCE UNITS LAB L501.0100 74-106 mg/dL Normal GLU 104 Result Comment: Fasting Glucose result from 100 to 125 mg/dL suggests IMPAIRED HOMEOSTASIS per A.D.A. criteria. Please note revised GLUCOSE reference range effective 2017. LAB L501.1000 7-18 mg/dL Normal BUN 9 LAB L501.1100 0.55-1.02 mg/dL Normal CREAT,SERUM 0.56 Result Comment: The validity of the calculated GFR AND GFRAA in patients over 70 years has not been determined. Clinical correlation is essential. LAB L501.1110 >60 mL/min Normal EST GFR 125 Result Comment: Non- GFR Calc LAB L501.1115 >60 mL/min Normal EST GFR - AA 151 Result Comment: GFR Calc LAB L501.1255 ml/min Normal Estimated CRCL 98.22 LAB L501.1300 10-20 RATIO Normal BUN/CRE 16.2 LAB L501.1500 6.4-8. g/dL Normal 2 T PROT 7.2 LAB L501.1800 3.2-5. g/dL Normal 0 ALB 3.2 LAB L501.1950 2.2-4. g/dL Normal 2 GLOB 4.0 LAB L501.2000 0.9-2. RATIO Low 4 A/G 0.8 LAB L501.2200 8.5-10 mg/dL Normal .1 CA 8.7 LAB L501.4100 15-37 U/L Normal AST 22 LAB L501.4305 45-117 U/L Normal ALK P 79 LAB L501.4405 13-56 U/L Normal ALT 25 LAB L501.4600 0.20-1 mg/dL Normal .00 T BILI 0.20 LAB L501.5300 136-14 mmol/L Normal 5 NA 140 LAB L501.5600 3.5-5. mmol/L Normal 1 K 4.0 LAB L501.5900 98-107 mmol/L Normal CL 105 LAB L501.6100 21.0-3 mmol/L Normal 2.0 CO2 28.0 LAB L501.6200 5-15 Normal GAP 7 Performed By: #### L100.0100, L500.4050 #### [facility] [address] 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 History of Present Illness: 09/12/2017: Patient underwent CT of the neck with contrast which demonstrated necrotic adenopathy within the right neck specifically at level 3 there is a lymph node measuring 39 x 29 x 26 mm, right neck level 5 lymph node measuring 14 x 18 mm. There is also identified a mass involving the lingual tonsil and extending into the right AE fold measuring about 28 x 36 x 36 mm. 09/16/2017: Patient was evaluated by [facility] for a firm and moderately tender right anterior neck mass ongoing for several weeks. On exam there was noted to be a large mass involving the right greater than left base of tongue down to the vallecula, but unable to complete mirror exam to further evaluate extent due to hyperactive gag reflex. FNA of the neck mass was completed. 09/23/2017: Patient underwent direct laryngoscopy with biopsy. Pathology demonstrated evidence for invasive moderately differentiated squamous cell carcinoma, p16 positive. 10/02/2017: Patient was evaluated by ENT at [facility] on exam the patient was noted to be edentulous, there is a firmness across the entire base of tongue right greater than left, a right pathologically enlarged lymph node which is tender to palpation measures about 4 cm. NPL was performed which showed the mass involving the right base of tongue which extends down into the vallecula and approaches the larynx but does not involve the false vocal cord or true vocal cord, this mass does appear to cross midline but there were no masses or lesions visualized at the epiglottis, AE folds, piriform sinuses, or lateral pharyngeal clement. From 11/05/17 - 12/23/17 she received 7000 cGy in 35 fractions to the primary base of tongue disease, right neck disease, and concerning left neck lymph nodes with a VMAT technique consisting of 3 arcs. Concurrently 6300 cGy was delivered to the bilateral neck high levels 2 and 1B through 3 as well as level 4 on the right and 5600 cGy to left level 4 and bilateral supraclavicular regions all in one radiation plan. She was treated with concurrent cisplatin 100 mg/m every 3 weeks (cycle one 11/05/17), switched to weekly carbo/taxol for cycle 2 due to tinnitus (started 11/26/17). Radiation Treatment History: 1) From 11/05/17 - 12/23/17 she received 7000 cGy in 35 fractions to the primary base of tongue disease, right neck disease, and concerning left neck lymph nodes with a VMAT technique consisting of 3 arcs. Concurrently 6300 cGy was delivered to the bilateral neck high levels 2 and 1B through 3 as well as level 4 on the right and 5600 cGy to left level 4 and bilateral supraclavicular regions all in one radiation plan. She was treated with concurrent cisplatin 100 mg/m every 3 weeks (cycle one 11/05/17), switched to weekly carbo/taxol for cycle 2 due to tinnitus (started 11/26/17). Interval History: Patient returns for short interval follow-up 2 weeks after completing chemoradiation therapy. She reports that over the past 2 weeks she has had marginal improvement in her symptoms. She reports that her skin has improved quite a bit and the peeling is much better. She does report continued tanning the bilateral neck and patchy areas of desquamation, she is still using Silvadene over these areas and Aquaphor elsewhere. She also reports continued discomfort in her mouth and throat particularly with swallowing and eating. She has tried to eat a few soft foods including mashed potatoes and ice cream but due to taste she has not liked most things so far. She reports minimal taste improvement. She denies having any dry mouth. She believes the previously treated thrush is mostly improved, and she is scheduled to complete Diflucan today. She continues to use green tea and baking soda/salt rinses and also uses Magic mouthwash as needed for discomfort. She continues to take Neurontin for pain and takes the liquid oxycodone only at night. She occasionally has some choking with swallowing but this is pretty infrequent. She was doing 5 tube feedings per day and one boost and drinking lots of other fluids. Over the last 2 weeks however she has lost 8 pounds, within the last couple of days she started doing 6 feeds through the tube per day and has done well with this so far. She reports continued fatigue and is not working at this time. She denies having any other problems or concerns at this time. I have reviewed the medical, surgical, and other pertinent history in details and have updated medication and allergy information in the electronic medical record. Review of Systems: A 12-point review of systems was completed and was negative except for what is noted in the HPI/Interval History and by the nurse. Height/Weight/BMI: Height: 5 ft 2 in Weight: 80.24 kg BMI: 34.3 Vital Signs Temperature 97.8 F 01/06/18 12:56 Temperature Source Oral 01/06/18 12:56 Pulse Rate 102 H 01/06/18 12:56 Respiratory Rate 16 01/06/18 12:56 Physical Exam: ECO KARNOFSKY SCORE: 70%-80% CONSTITUTIONAL: Well-developed, well-nourished, and in no apparent distress. HEENT: Mucous membranes are somewhat moist. There is mucositis noted in the visualized oropharynx. Patient is edentulous. Appearance is that of thrush has decreased. There are no lesions visualized. No trismus. Pupils are equal, round, and reactive to light and accommodation. Extraocular movements are intact. Sclerae are anicteric. NECK: Supple,with no thyromegaly, and non-tender. Trachea midline. No cervical or supraclavicular adenopathy noted. Bilateral skin is hyperpigmented with patchy desquamation. CARDIAC: Regular rate and rhythm. Normal S1, S2. No murmurs, rubs, or gallops. PULMONARY/CHEST: Lungs are clear to auscultation and percussion bilaterally. No wheezes, rhonchi, or crackles noted. No increased work of breathing. ABDOMINAL: Abdomen soft, non-tender, non-distended. PEG tube in place, no skin erythema. No hepatomegaly. Normoactive bowel sounds in all four quadrants. No guarding, rebound. BACK: Straight and aligned. No CVA tenderness. Axial skeleton non-tender to percussion. EXTREMITIES: Full range of motion in all four extremities, with normal strength equally and symmetrically. No evidence of edema. No clubbing. 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 From 11/05/17 - 12/23/17 she received 7000 cGy in 35 fractions to the primary base of tongue disease, right neck disease, and concerning left neck lymph nodes with a VMAT technique consisting of 3 arcs. Concurrently 6300 cGy was delivered to the bilateral neck high levels 2 and 1B through 3 as well as level 4 on the right and 5600 cGy to left level 4 and bilateral supraclavicular regions all in one radiation plan. She was treated with concurrent cisplatin 100 mg/m every 3 weeks (cycle one 11/05/17), switched to weekly carbo/taxol for cycle 2 due to tinnitus (started 11/26/17). Patient presents for initial short-term interval follow-up 2 weeks after completing definitive chemoradiation therapy. Clinically she has had marginal improvement and still displays evidence for toxicity including skin erythema/desquamation, oropharyngeal mucositis, odynophagia, nutritional deficiency and weight loss, and reduced taste. There is no evidence of disease on exam. Plan: I reviewed management recommendations including continuing Silvadene/Aquaphor and UV radiation avoidance for skin toxicity, continued Magic mouthwash, green tea and baking soda/salt rinses, Neurontin, and oxycodone for mucositis and pain control. I instructed her to increase PEG tube feeds and also to try to increase the number of boost supplemental drinks per day and initiate milkshakes or other softer foods. She did not want to stay today for IV fluid support but she will return in 2 days for IV fluids and will meet with dietitian on that day, currently she is scheduled with the dietitian on 01/17/2018. I discussed with her the usual timing for resolution of radiation toxicities. She will follow-up with her ENT on 01/13/2018 and I will plan to see her in follow-up in 2 weeks. We will plan for 3 month post-treatment PET scan at 3 months. I answered all the patient's questions and she was instructed to call with any further questions or concerns in the interim. Pierce Pascal DO, MS Security Incident Handler, Department of Radiation Oncology [facility] 01/06/18 1406 <Electronically signed by Pierce Pascal DO> Date Pierce Pascal DO CC: Magalie Mattson MD; Gloria Goode MD Signed CBC W/DIFF, AUTOMATED Collected: 01/01/2018 Status: F Source: [facility] 1:19 PM [facility] REPOSITORY Order Comment: Reason for Laboratory Test . TYPE CODE TESTS RESULT OUT OF RANGE REFERENCE UNITS LAB L100.1000 4.4-11.0 K/mm3 Low WBC 2.3 LAB L100.1200 4.2-5.4 M/mm3 Low RBC 3.65 LAB L100.1300 12.0-15.0 g/dl Low HGB 11.5 LAB L100.1400 37-47 % Low HCT 36.3 LAB L100.1500 81-99 fL High MCV 99.5 LAB L100.1600 27.0-32.0 pg Normal MCH 31.5 LAB L100.1700 32-36 g/gl Low MCHC 31.7 LAB L100.1810 11.6-14.6 % Normal RDW CV 14.5 LAB L100.1820 35.1-43.9 fl High RDW SD 52.3 LAB L100.1900 150-450 K/mm3 Normal PLT 184 LAB L100.2000 6.2-12.0 fl Normal MPV 9.5 LAB L100.2100 47-70 % High NEUT% 74.7 LAB L100.2200 19-41 % Low LY% 18.7 LAB L100.2300 0-10 % Normal MONO% 4.4 LAB L100.2400 0-5 % Normal EO% 1.8 LAB L100.2500 0-1 % Normal BASO% 0.4 LAB L100.2550 0.0-0.9 % Normal IM GRAN % 0.000 Result Comment: IG% - Immature Granulocytes (promyelocytes, myelocytes and metamyelocytes) > 1% indicates that a LEFT SHIFT is Present. LAB L100.2620 2.0-7.7 X10 3/uL Low Absolute Neut 1.7 LAB L100.2720 0.83-4.51 X10 3/ul Low Absolute Lymph 0.42 LAB L100.4500 Normal SMEAR COMMENT COMMENT Result Comment: SLIDE SCANNED - LYMPHOPENIA NOTED. Performed By: #### L100.0100 #### [facility] [address] [place], [address] COMPREHENSIVE METABOLIC Collected: 01/01/2018 Status: F Source: [facility] 1:19 PM [facility] REPOSITORY Order Comment: Reason for Laboratory Test . TYPE CODE TESTS RESULT OUT OF RANGE REFERENCE UNITS LAB L501.0100 74-106 mg/dL Normal GLU 97 Result Comment: Please note revised GLUCOSE reference range effective 2017. LAB L501.1000 7-18 mg/dL Normal BUN 11 LAB L501.1100 0.55-1.02 mg/dL Normal CREAT,SERUM 0.57 Result Comment: The validity of the calculated GFR AND GFRAA in patients over 70 years has not been determined. Clinical correlation is essential. LAB L501.1110 >60 mL/min Normal EST GFR 121 Result Comment: Non- GFR Calc LAB L501.1115 >60 mL/min Normal EST GFR - AA 147 Result Comment: GFR Calc LAB L501.1255 ml/min Normal Estimated CRCL 96.50 LAB L501.1300 10-20 RATIO Normal BUN/CRE 19.4 LAB L501.1500 6.4-8. g/dL Normal 2 T PROT 7.4 LAB L501.1800 3.2-5. g/dL Normal 0 ALB 3.2 LAB L501.1950 2.2-4. g/dL Normal 2 GLOB 4.2 LAB L501.2000 0.9-2. RATIO Low 4 A/G 0.8 LAB L501.2200 8.5-10 mg/dL Normal .1 CA 9.0 LAB L501.4100 15-37 U/L Normal AST 19 LAB L501.4305 45-117 U/L Normal ALK P 85 LAB L501.4405 13-56 U/L Normal ALT 22 LAB L501.4600 0.20-1 mg/dL Normal .00 T BILI 0.30 LAB L501.5300 136-14 mmol/L Normal 5 NA 141 LAB L501.5600 3.5-5. mmol/L Normal 1 K 4.1 LAB L501.5900 98-107 mmol/L Normal CL 104 LAB L501.6100 21.0-3 mmol/L Normal 2.0 CO2 28.0 LAB L501.6200 5-15 Normal GAP 9 Performed By: #### L500.4050 #### [facility] [address] [place], [address] CBC W/DIFF, AUTOMATED Collected: 12/25/2017 Status: F Source: [facility] 1:01 PM [facility] REPOSITORY Order Comment: Reason for Laboratory Test . TYPE CODE TESTS RESULT OUT OF RANGE REFERENCE UNITS LAB L100.1000 4.4-11.0 K/mm3 Low WBC 2.0 LAB L100.1200 4.2-5.4 M/mm3 Low RBC 3.47 LAB L100.1300 12.0-15.0 g/dl Low HGB 10.9 LAB L100.1400 37-47 % Low HCT 34.0 LAB L100.1500 81-99 fL Normal MCV 98.0 LAB L100.1600 27.0-32.0 pg Normal MCH 31.4 LAB L100.1700 32-36 g/gl Normal MCHC 32.1 LAB L100.1810 11.6-14.6 % Normal RDW CV 14.5 LAB L100.1820 35.1-43.9 fl High RDW SD 50.9 LAB L100.1900 150-450 K/mm3 Low PLT 119 LAB L100.2000 6.2-12.0 fl Normal MPV 8.6 LAB L100.2100 47-70 % High NEUT% 81.0 LAB L100.2200 19-41 % Low LY% 15.5 LAB L100.2300 0-10 % Normal MONO% 1.5 LAB L100.2400 0-5 % Normal EO% 1.5 LAB L100.2500 0-1 % Normal BASO% 0.5 LAB L100.2550 0.0-0.9 % Normal IM GRAN % 0.000 Result Comment: IG% - Immature Granulocytes (promyelocytes, myelocytes and metamyelocytes) > 1% indicates that a LEFT SHIFT is Present. LAB L100.2620 2.0-7.7 X10 3/uL Low Absolute Neut 1.6 LAB L100.2720 0.83-4.51 X10 3/ul Low Absolute Lymph 0.31 LAB L100.4500 SMEAR Normal COMMENT Result Comment: SLIDE SCANNED - LYMPHOPENIA NOTED. Performed By: #### L100.0100 #### [facility] [address] [place], [address] COMPREHENSIVE METABOLIC Collected: 12/25/2017 Status: F Source: [facility] 1:01 PM [facility] REPOSITORY Order Comment: Reason for Laboratory Test . TYPE CODE TESTS RESULT OUT OF RANGE REFERENCE UNITS LAB L501.0100 74-106 mg/dL Normal GLU 103 Result Comment: Fasting Glucose result from 100 to 125 mg/dL suggests IMPAIRED HOMEOSTASIS per A.D.A. criteria. Please note revised GLUCOSE reference range effective 2017. LAB L501.1000 7-18 mg/dL Normal BUN 10 LAB L501.1100 0.55-1.02 mg/dL Low CREAT,SERUM 0.48 Result Comment: The validity of the calculated GFR AND GFRAA in patients over 70 years has not been determined. Clinical correlation is essential. LAB L501.1110 >60 mL/min Normal EST GFR 147 Result Comment: Non- GFR Calc LAB L501.1115 >60 mL/min Normal EST GFR - AA 178 Result Comment: GFR Calc LAB L501.1255 ml/min Normal Estimated CRCL 114.60 LAB L501.1300 10-20 RATIO High BUN/CRE 20.8 LAB L501.1500 6.4-8. g/dL 2 T PROT Normal 6.7 LAB L501.1800 3.2-5. g/dL Low 0 ALB 2.9 LAB L501.1950 2.2-4. g/dL 2 GLOB Normal 3.8 LAB L501.2000 0.9-2. RATIO Low 4 A/G 0.8 LAB L501.2200 8.5-10 mg/dL .1 CA Normal 8.6 LAB L501.4100 15-37 U/L AST Normal 15 LAB L501.4305 45-117 U/L ALK P Normal 69 LAB L501.4405 13-56 U/L ALT Normal 20 LAB L501.4600 0.20-1 mg/dL .00 T BILI Normal 0.30 LAB L501.5300 136-14 mmol/L 5 NA Normal 141 LAB L501.5600 3.5-5. mmol/L 1 K Normal 4.1 LAB L501.5900 98-107 mmol/L CL Normal 104 LAB L501.6100 21.0-3 mmol/L 2.0 CO2 Normal 29.0 LAB L501.6200 5-15 GAP Normal 8 Performed By: #### L500.4050 #### [facility] [address] [place], [address] END OF TREATMENT Observed: 12/23/2017 Status: F Source: [facility] SUMMARY 3:11 PM [facility] REPOSITORY [facility] [address] 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 Oncologic History: 09/12/2017: Patient underwent CT of the neck with contrast which demonstrated necrotic adenopathy within the right neck specifically at level 3 there is a lymph node measuring 39 x 29 x 26 mm, right neck level 5 lymph node measuring 14 x 18 mm. There is also identified a mass involving the lingual tonsil and extending into the right AE fold measuring about 28 x 36 x 36 mm. 09/16/2017: Patient was evaluated by [facility] for a firm and moderately tender right anterior neck mass ongoing for several weeks. On exam there was noted to be a large mass involving the right greater than left base of tongue down to the vallecula, but unable to complete mirror exam to further evaluate extent due to hyperactive gag reflex. FNA of the neck mass was completed. 09/23/2017: Patient underwent direct laryngoscopy with biopsy. Pathology demonstrated evidence for invasive moderately differentiated squamous cell carcinoma, p16 positive. 10/02/2017: Patient was evaluated by ENT at [facility] on exam the patient was noted to be edentulous, there is a firmness across the entire base of tongue right greater than left, a right pathologically enlarged lymph node which is tender to palpation measures about 4 cm. NPL was performed which showed the mass involving the right base of tongue which extends down into the vallecula and approaches the larynx but does not involve the false vocal cord or true vocal cord, this mass does appear to cross midline but there were no masses or lesions visualized at the epiglottis, AE folds, piriform sinuses, or lateral pharyngeal clement. The patient completed a course of external beam radiotherapy in our department. This treatment was delivered for curative intent. Treatment was given according to the following parameters: FCO GARNETT received 7000 cGy of 6 MV photons in 35 fractions to the primary base of tongue disease, right neck disease, and concerning left neck lymph nodes with a VMAT technique consisting of 3 arcs. Concurrently 6300 cGy was delivered to the bilateral neck high levels 2 and 1B through 3 as well as level 4 on the right and 5600 cGy to left level 4 and bilateral supraclavicular regions all in one radiation plan. The patient did receive concurrent chemotherapy consisting of cisplatin 100 mg/m every 3 weeks (cycle one 11/05/17), switched to weekly carbo/taxol for cycle 2 due to tinnitus (started 11/26/17). Date of First Treatment: 11/05/17 Date of Last Treatment: 12/23/17 Total Elapsed Days (including weekend and holidays): 48 Missed Treatments: none Response and Tolerance: The patient tolerated this course of radiotherapy well overall. The following radiation related toxicities developed during the course of radiation therapy: * Grade 2-3 skin erythema with patchy bilateral moist desquamation which was treated with Aquaphor and Silvadene * Grade 2-3 mucositis and associated pain which was treated with MMW, neurontin 900 mg tid, and oxycodone 5 mg bid * Grade 1 fatigue * Swallowing dysfunction resulting from pain * Taste loss * Thrush treated with Fluconazole Total weight change during therapy: 6 lb weight loss, taking most nutrition through PEG, fluids only by mouth At the end of therapy the physical examination showed no evidence of gross disease involving the BOT or right neck. Disposition: The patient tolerated the planned course of radiation therapy well without unexpected toxicity in an appropriate time course. I will have FCO follow-up in 2 weeks for a routine visit to assess resolution of radiation toxicity. The patient will maintain scheduled follow-up visits with the other providers. If we can provide any further information on this patient's course of care, please do not hesitate to ask. We would like to thank you very much for allowing us to participate in the care of this patient. Sincerely, Pierce Pascal DO, MS Security Incident Handler, Department of Radiation Oncology [facility] 12/23/17 3733 <Electronically signed by Pierce Pascal DO> Date Pierce Pascal DO Cosign Signature: Date (if applicable) CC: Felisa Abbott; Magalie Mattson MD; Gloria Goode MD RADIATION ONCOLOGY Observed: 12/18/2017 Status: F Source: [facility] VISIT 10:40 AM [facility] [place] [address] [place] [address] OFFICE VISIT Date of Service: 12/18/17 1035 MR#: [id number] Acct: [id number] Name: FCO GARNETT Rep #: [id number] : 1970 From: Avel Olivares MD Age/Sex: 47/F Location: [facility] Status: Signed Date of Service: 12/18/17 Diagnosis: Fco Garnett is a diagnosed with AJCC seventh edition stage DAVID (cT2-3N2bMx), AJCC eighth edition Stage II (cT2-3N1Mx), 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 Plan was made to complete definitive chemoradiation with concurrent cisplatin every 3 weeks. Simultaneous integrated boost radiation plan was generated to treat the gross primary disease, right neck disease and concerning left neck lymph nodes to 7000 cGy, the bilateral neck high levels 2 and 1B through 3 as well as level 4 on the right to 6300 cGy, and the left level 4 and bilateral supraclavicular region to 5600 cGy all completed in 35 fractions. Due to treatment delay of 1 week caused by hospitalwide computer system issues a re-simulation was performed and slight adjustments made to the treatment volumes due to slight increase in apparent disease volume. Treatment Data: Treatment Site: Base of tongue and bilateral neck Current total dose/Total dose planned: 6400 cGy / 7000 cGy Fraction number: 33 Chemotherapy: Concurrent cisplatin 100 mg/m every 3 weeks (cycle one 11/05/17), switched to weekly carbo/taxol for cycle 2 due to tinnitus (started 11/26/17). Subjective: Patient reports doing well overall. Continuing nutritional intake via PEG with weight stable. Mild to moderate oropharyngeal pain satisfactorily controlled with liquid OxyC TID. Finished chemo yesterday. Applying silvadene to bilateral neck. Tolerating only water PO. Taste: very low Xerostomia: mild, using biotene and mucinex Pain: 5-6 / 10, mostly when swallowing, improved with oxycodone 5 mg prn, MMW, and continued neurontin Appetite: normal Diet: unrestricted, small amounts of soft food, using PEG evaluated by swinging cut off saw operator and following recommendations Skin: b/l darker erythema, no pain, does have bilateral desquamation Mucositis: grade 2 in posterior pharynx Fatigue: none Rinses: using MMW, green tea, and Baking soda/salt rinses tid Height/Weight/BMI: Height: 5 ft 2 in Weight: 89.448 kg Previous/Normal Weight: weight at first treatment 190.4 lbs, 11/06/17: 197 lbs, 11/13/17: 191.2 lbs, 11/26/17: 190 lbs, 12/04/17: 188.3 lbs, 12/11/17: 185.2 lbs BMI: 34.3 Weight today: 184.8 Vital Signs Temperature 98.2 F 12/10/17 08:42 Temperature Source Temporal Artery 12/10/17 08:42 Pulse Rate 84 12/10/17 08:42 Respiratory Rate 17 12/10/17 08:42 Objective: Gen: NAD ENT: grade 2 mucositis involving the oropharynx bilaterally. mucus membranes somewhat dry, no thrush. Edentulous Neck: bilateral moist desquamation and moderate erythema with silvadene applied Labs: Laboratory Tests WBC 4.1 L Hgb 12.1 Plt Count 194 BUN 11 Creatinine 0.71 Assessment: Tolerating radiation therapy well overall. All treatment related imaging has been reviewed and approved Plan: Continue XRT. Continue green tea rinses and baking soda/salt rinses Pain: Taking Neurontin as prescribed, Magic mouthwash tid at this time, can use qid; liquid oxycodone bid. Skin: continue silvadene Xerostomia: Mucinex, biotene, recommended clear diet soda rinses Nutrition: continue regimen and monitor weight Follow-up at [facility] saturday and as needed or per MD. Code Visit Rad Onc OTV: [id number] Radiation tx management x5 12/18/17 1040 <Electronically signed by Avel Olivares MD> Date Avel Olivares MD Cosigner Signature: Date (if applicable) CC: BASIC METABOLIC Collected: 12/17/2017 Status: F Source: [facility] PROFILE ([facility]) 9:29 AM [facility] REPOSITORY Order Comment: Reason for Laboratory Test . TYPE CODE TESTS RESULT OUT OF RANGE REFERENCE UNITS LAB L501.0100 74-106 mg/dL High GLU 129 Result Comment: Fasting Glucose result greater than or equal to 126 mg/dL suggests DIABETES MELLITUS per A.D.A. criteria. Please note revised GLUCOSE reference range effective 2017. LAB L501.1000 7-18 mg/dL Normal BUN 12 LAB L501.1100 0.55-1.02 mg/dL Normal CREAT,SERUM 0.58 Result Comment: The validity of the calculated GFR AND GFRAA in patients over 70 years has not been determined. Clinical correlation is essential. LAB L501.1110 >60 mL/min Normal EST GFR 118 Result Comment: Non- GFR Calc LAB L501.1115 >60 mL/min Normal EST GFR - AA 143 Result Comment: GFR Calc LAB L501.1255 ml/min Normal Estimated CRCL 94.84 LAB L501.1300 10-20 RATIO High BUN/CRE 20.7 LAB L501.2200 8.5-10 mg/dL Normal .1 CA 8.6 LAB L501.5300 136-14 mmol/L Normal 5 NA 141 LAB L501.5600 3.5-5. mmol/L Normal 1 K 3.6 LAB L501.5900 98-107 mmol/L Normal CL 104 LAB L501.6100 21.0-3 mmol/L Normal 2.0 CO2 28.0 LAB L501.6200 5-15 Normal GAP 9 Performed By: #### L500.2500 #### [facility] [address] [place], [address] ONCOLOGY VISIT REPORT Observed: 12/17/2017 Status: F Source: ILIA 9:03 AM [facility] REPOSITORY [facility] [address] [place] [address] OFFICE VISIT Date of Service: 12/17/17 0831 MR#: [id number] Acct: [id number] Name: FCO GARNETT Rep #: [id number] : 1970 From: Gloria Goode MD Age/Sex: 47/F Location: ONC Status: Signed - Problem List (1) Tongue cancer Status: Acute Comment: HPV + (2) Regional lymph node metastasis present Status: Acute (3) Tinnitus Status: Acute - Date of Service Date of Service:: 12/17/17 - Chief Complaint Tongue cancer on treatment - History of Present Illness Patient is a 46-year-old female, smoker till September 2017 who presented with a painless enlarging right neck mass since July 2017. Was seen by Dr. 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 CAT scan of the neck in August 2017 confirmed the mass measuring up to 3.6 cm in maximum diameter with right neck necrotic adenopathy measuring up to 3.9 cm in maximum diameter. At least 3 pathologic nodes identified on imaging. The mass was felt to cross the midline and involve the right lingual tonsil and the right aryepiglottic fold. Patient has lost only a few pounds of weight only recently and a feeding tube was placed by Dr. Mattson and she was referred for definitive chemoradiation. Patient elected to come to [facility] close to home. PET/CT staging September 2017 showed no evidence of distant metastatic disease. Treatment: Combined radiation therapy and high-dose cisplatin (X1) November 05, 2017, switched to weekly Carbo-Taxol November 26, 2017 due to toxicity (Tinnitus) . 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 UNSURE OF WHICH ONE HYSTERECTOMY 1994 Tongue cancer Social History Social History: No changes Smoking Status Former smoker Review of Systems Constitutional:: Reports: Fatigue. Denies: Fever, Sweats, Weight loss, Appetite change, Chills Cardiovascular:: Reports: Dyspnea on exertion. Denies: Chest pain, Palpitations, Orthopnea, PND, Shortness of breath Respiratory: Reports: Shortness of breath upon exertion. Denies: Cough, Hemoptysis, Shortness of Breath, Wheezing Gastrointestinal:: Reports: Dysphagia - Painful, manageable with prescriptions. Denies: Abdominal pain, Nausea, Vomiting, Diarrhea, Constipation, Hematochezia Genitourinary: Denies: Dysuria, Hematuria, 15, Flank pain Musculoskeletal:: Denies: Back pain, Myalgia, Arthralgia Skin: Reports: Lesions - Skin barron on the skin, uses topical prescription cream. Denies: Rash, Skin Changes, Wounds Neurological:: Denies: Headache, Dizziness, Visual changes, Tinnitus, Hearing loss Psychiatric: Denies: Anxiety, Depression, Homicidal Ideations, Suicidal Ideations Vital Signs Height 5 ft 2 in Weight: 84.187 kg Weight in Pounds 185.6 lbs BMI 34.3 Pulse Ox 99 - Physical Exam General: Alert, Oriented x3, No apparent distress, - - ECOG 1 HEENT: Atraumatic, PERRLA, EOMI, Normocephalic Oropharynx:: Dry mucosa Neck:: Supple, Trachea midline, - - Port okay. Negative for: JVD, bilateral Cardiac:: Regular rate, Regular rhythm, Normal S1, Normal S2. Negative for: Murmur Lungs: Clear to auscultation, Excusion symmetrical. Negative for: Rhonchi, Wheezes Abdomen:: Bowel sounds x 4, Soft, Non-tender, Non-distended, - - PEG tube okay. Negative for: Hepatosplenomegaly Extremities:: Negative for: Cyanosis, Edema Neurological: Neuro grossly intact Skin:: Rash - Over the neck consistent with second-degree burn from radiation. 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 The patient is at least clinical prognostic stage II for HPV positive head and neck cancer (T3, N1, MX). She is anatomic stage IV (T3, N2, Mx) by AJCC UICC 2017. I reviewed the most recent NCC and guidelines and advice definitive concomitant chemotherapy (high dose cisplatin) radiation was an intent to cure. This approach has been shown to improve overall survival and decrease the risk of compared to radiation therapy alone ( [place]-analysis of chemotherapy in head and neck cancer (MACH- [place]): a comprehensive analysis by tumour site. Herson P, Ashli B, Milan V, Richie A, Tash C, Willian Galicia, Yusef ERMELINDA, [facility]- [facility] group Radiother Oncol. 2011;100(1):33. Started concomitant chemoradiation November 05, 2017. No excess toxicities but reported tinnitus 1 week following high-dose cisplatin, improved somewhat but did not completely resolve . 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 Painful dysphagia experienced as expected, weight loss noted. Plan: 1 will conclude concomitant chemoradiation with carboplatin Taxol end of this week 2 continue follow-up closely on a weekly basis in the upcoming few weeks until recovery 3 nutrition consult done, diet and oral hydration reviewed encouraged again to use her feeding tube . 4 BMX mouthwash and analgesics prescribed by radiation oncology 5 we will support tube feeds with IV hydration as needed and guided by blood work. 6 skin burn from radiation managed as per radiation oncology instructions Patient seen impression and plan reviewed Medications: Prescriptions This Visit Medication Instructions Recorded Levothyroxine [Synthroid] 50 mcg PO DAILY 10/07/17 Medications Added to Medication List This Visit 0.9% Normal Saline Med 12/17/17 00:00 Active Primary Care Provider: Felisa Abbott Referring Provider: Gloria Goode MD 12/17/17 0903 <Electronically signed by Gloria Goode MD> Date Gloria Goode MD Cosigner Signature: Date (if applicable) CC: CBC W/DIFF, AUTOMATED Collected: 12/17/2017 Status: F Source: ILIA 8:18 AM [facility] REPOSITORY TYPE CODE TESTS RESULT OUT OF RANGE REFERENCE UNITS LAB L100.1000 4.4-11.0 K/mm3 Low WBC 2.7 LAB L100.1200 4.2-5.4 M/mm3 Low RBC 3.66 LAB L100.1300 12.0-15.0 g/dl Low HGB 11.5 LAB L100.1400 37-47 % Low HCT 35.6 LAB L100.1500 81-99 fL Normal MCV 97.3 LAB L100.1600 27.0-32.0 pg Normal MCH 31.4 LAB L100.1700 32-36 g/gl Normal MCHC 32.3 LAB L100.1810 11.6-14.6 % Normal RDW CV 14.3 LAB L100.1820 35.1-43.9 fl High RDW SD 50.1 LAB L100.1900 150-450 K/mm3 Normal PLT 158 LAB L100.2000 6.2-12.0 fl Normal MPV 9.0 LAB L100.2100 47-70 % High NEUT% 79.8 LAB L100.2200 19-41 % Low LY% 15.7 LAB L100.2300 0-10 % Normal MONO% 3.4 LAB L100.2400 0-5 % Normal EO% 0.7 LAB L100.2500 0-1 % Normal BASO% 0.4 LAB L100.2550 0.0-0.9 % Normal IM GRAN % 0.000 Result Comment: IG% - Immature Granulocytes (promyelocytes, myelocytes and metamyelocytes) > 1% indicates that a LEFT SHIFT is Present. LAB L100.2620 2.0-7.7 X10 3/uL Normal Absolute Neut 2.1 LAB L100.2720 0.83-4.51 X10 3/ul Low Absolute Lymph 0.42 LAB L100.4500 Normal SMEAR COMMENT COMMENT Result Comment: SLIDE SCANNED - LYMPHOPENIA NOTED. Performed By: #### L100.0100 #### [facility] [address] [place], [address] RADIATION ONCOLOGY Observed: 12/11/2017 Status: F Source: [place]L VISIT 10:29 AM [facility] REPOSITORY [facility] [address] [place] [address] OFFICE VISIT Date of Service: 12/11/17 1021 MR#: [id number] Acct: [id number] Name: FCO GARNETT Rep #: [id number] : 1970 From: Pierce Pascal DO Age/Sex: 47/F Location: [facility] Status: Signed Date of Service: 12/11/17 Diagnosis: Fco Garnett is a diagnosed with AJCC seventh edition stage DAVID (cT2-3N2bMx), AJCC eighth edition Stage II (cT2-3N1Mx), 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 Plan was made to complete definitive chemoradiation with concurrent cisplatin every 3 weeks. Simultaneous integrated boost radiation plan was generated to treat the gross primary disease, right neck disease and concerning left neck lymph nodes to 7000 cGy, the bilateral neck high levels 2 and 1B through 3 as well as level 4 on the right to 6300 cGy, and the left level 4 and bilateral supraclavicular region to 5600 cGy all completed in 35 fractions. Due to treatment delay of 1 week caused by hospitalwide computer system issues a re-simulation was performed and slight adjustments made to the treatment volumes due to slight increase in apparent disease volume. Treatment Data: Treatment Site: Base of tongue and bilateral neck Current total dose/Total dose planned: 5400 cGy / 7000 cGy Fraction number: Chemotherapy: Concurrent cisplatin 100 mg/m every 3 weeks (cycle one 11/05/17), switched to weekly carbo/taxol for cycle 2 due to tinnitus (started 11/26/17). Subjective: Patient reports doing ok overall. She describes having pain is with swallowing. Does report right ear tinnitus after cisplatin and will have chemo change for cycle 2, tinnitus is intermittent. Taste: very low Xerostomia: mild, using biotene and mucinex Pain: 5-6 / 10, mostly when swallowing, improved with oxycodone 5 mg prn, MMW, and continued neurontin Appetite: normal Diet: unrestricted, small amounts of soft food, using PEG evaluated by swinging cut off saw operator and following recommendations Skin: b/l darker erythema, no pain, does have bilateral desquamation Mucositis: grade 2 in posterior pharynx Fatigue: none Rinses: using MMW, green tea, and Baking soda/salt rinses tid Height/Weight/BMI: Height: 5 ft 2 in Weight: 89.448 kg Previous/Normal Weight: weight at first treatment 190.4 lbs, 11/06/17: 197 lbs, 11/13/17: 191.2 lbs, 11/26/17: 190 lbs, 12/04/17: 188.3 lbs, 12/11/17: 185.2 lbs BMI: 34.3 Vital Signs Temperature 98.2 F 12/10/17 08:42 Temperature Source Temporal Artery 12/10/17 08:42 Pulse Rate 84 12/10/17 08:42 Respiratory Rate 17 12/10/17 08:42 Objective: Gen: NAD ENT: tumor not appreciated. grade 2 mucositis involving the oropharynx bilaterally. mucus membranes somewhat dry, no thrush. Edentulous Neck: bilateral darker erythema. bilateral patchy dry desquamation. 3-4 cm firm level II-III adenopathy at initiation of treatment, now softer and much less protuberant and difficult to palpate Labs: Laboratory Tests WBC 4.1 L Hgb 12.1 Plt Count 194 BUN 11 Creatinine 0.71 Assessment: Tolerating radiation therapy well overall. All treatment related imaging has been reviewed and approved Chemotherapy: Developed tinnitus, chemo changed to carbo/taxol Xerostomia: Mild Pain: 5-6 Skin: grade 2 with dry desquamation Nutrition: down about 3 lbs since last week. Plan: Discussed timing of radiation related toxicities and various measures to improve symptoms Continue green tea rinses and baking soda/salt rinses Pain: Taking Neurontin as prescribed, Magic mouthwash tid at this time, can use qid; liquid oxycodone bid. Skin: Discussed usage of skin lotion. using aquaphor and silvadene, will be assessed by wound clinic for any additional recs. Xerostomia: Mucinex, biotene, recommended clear diet soda rinses Nutrition: add boost 1-2 per day to current regimen Follow-up next week or sooner if needed. Thank you for allowing me to participate in the management and care of your patient. If I may answer any questions in the interim, please do not hesitate to contact me at any time. Pierce Pascal DO, MS [employer] Handler, Department of Radiation Oncology [facility] 12/11/17 7657 <Electronically signed by Pierce Pascal DO> Date Pierce Kapoor Signature: Date (if applicable) CC: BASIC METABOLIC Collected: 12/10/2017 Status: F Source: ILIA PROFILE (BMP) 9:33 AM [facility] REPOSITORY Order Comment: Reason for Laboratory Test . TYPE CODE TESTS RESULT OUT OF RANGE REFERENCE UNITS LAB L501.0100 74-106 mg/dL High GLU 107 Result Comment: Fasting Glucose result from 100 to 125 mg/dL suggests IMPAIRED HOMEOSTASIS per A.D.A. criteria. Please note revised GLUCOSE reference range effective 2017. LAB L501.1000 7-18 mg/dL Normal BUN 11 LAB L501.1100 0.55-1.02 mg/dL Normal CREAT,SERUM 0.71 Result Comment: The validity of the calculated GFR AND GFRAA in patients over 70 years has not been determined. Clinical correlation is essential. LAB L501.1110 >60 mL/min Normal EST GFR 93 Result Comment: Non- GFR Calc LAB L501.1115 >60 mL/min Normal EST GFR - AA 113 Result Comment: GFR Calc LAB L501.1255 ml/min Normal Estimated CRCL 77.47 LAB L501.1300 10-20 RATIO Normal BUN/CRE 15.4 LAB L501.2200 8.5-10 mg/dL Normal .1 CA 8.5 LAB L501.5300 136-14 mmol/L Normal 5 NA 139 LAB L501.5600 3.5-5. mmol/L Normal 1 K 3.8 LAB L501.5900 98-107 mmol/L Normal CL 104 LAB L501.6100 21.0-3 mmol/L Normal 2.0 CO2 28.0 LAB L501.6200 5-15 Normal GAP 7 Performed By: #### L500.2500 #### [facility] [address] [place], [address] ONCOLOGY VISIT REPORT Observed: 12/10/2017 Status: F Source: ILIA 9:05 AM [facility] REPOSITORY [facility] [address] [place] [address] OFFICE VISIT Date of Service: 12/10/1701 MR#: [id number] Acct: [id number] Name: FCO GARNETT Rep #: [id number] : 1970 From: Gloria Goode MD Age/Sex: 47/F Location: [facility] Status: Signed - Problem List (1) Tongue cancer Status: Acute Comment: HPV + (2) Regional lymph node metastasis present Status: Acute (3) Tinnitus Status: Acute - Date of Service Date of Service:: 12/10/17 - Chief Complaint Tongue cancer on treatment - History of Present Illness Patient is a 46-year-old female, smoker till September 2017 who presented with a painless enlarging right neck mass since July 2017. Was seen by Dr. 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 CAT scan of the neck in August 2017 confirmed the mass measuring up to 3.6 cm in maximum diameter with right neck necrotic adenopathy measuring up to 3.9 cm in maximum diameter. At least 3 pathologic nodes identified on imaging. The mass was felt to cross the midline and involve the right lingual tonsil and the right aryepiglottic fold. Patient has lost only a few pounds of weight only recently and a feeding tube was placed by Dr. Mattson and she was referred for definitive chemoradiation. Patient elected to come to [facility] close to home. PET/CT staging September 2017 showed no evidence of distant metastatic disease. Treatment: Combined radiation therapy and high-dose cisplatin (X1) November 05, 2017, switched to weekly Carbo-Taxol November 26, 2017 due to toxicity (Tinnitus) . 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 UNSURE OF WHICH ONE HYSTERECTOMY 1994 Tongue cancer Social History Social History: No changes Smoking Status Former smoker Review of Systems Constitutional:: Reports: Fatigue, Weight loss. Denies: Fever, Sweats, Appetite change, Chills Cardiovascular:: Denies: Chest pain, Palpitations, Dyspnea on exertion, Orthopnea, PND, Shortness of breath Respiratory: Denies: Cough, Hemoptysis, Shortness of Breath, Wheezing Gastrointestinal:: Reports: Nausea - Occasional, Dysphagia - Painful, controlled with oxycodone, dependent on tube feeds now. Denies: Abdominal pain, Vomiting, Diarrhea, Constipation, Hematochezia Genitourinary: Denies: Dysuria, Hematuria, 15, Flank pain Musculoskeletal:: Denies: Back pain, Myalgia, Arthralgia Skin: Reports: Skin Changes - Skin of neck peeling. Denies: Rash, Wounds Neurological:: Reports: Tinnitus - Improving. Denies: Headache, Dizziness, Visual changes, Hearing loss Psychiatric: Denies: Anxiety, Depression, Homicidal Ideations, Suicidal Ideations Vital Signs Height 5 ft 2 in Weight: 84.005 kg Weight in Pounds 185.2 lbs BMI 34.3 Pulse Ox 96 - Physical Exam General: Alert, - - ECOG 1-2 HEENT: Atraumatic, PERRLA, EOMI, Normocephalic Oropharynx:: Dry mucosa Neck:: - - Port okay Cardiac:: Regular rate, Regular rhythm, Normal S1, Normal S2. Negative for: Murmur Lungs: Clear to auscultation, Excusion symmetrical. Negative for: Rhonchi, Wheezes Abdomen:: Soft, Non-tender, Non-distended, - - Feeding tube okay. Negative for: Hepatosplenomegaly Extremities:: Negative for: Cyanosis, Edema Neurological: Neuro grossly intact Skin:: Rash - First-degree skin burn on the neck with superficial peeling but no blistering. 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 The patient is at least clinical prognostic stage II for HPV positive head and neck cancer (T3, N1, MX). She is anatomic stage IV (T3, N2, Mx) by AJCC UICC 2017. I reviewed the most recent NCC and guidelines and advice definitive concomitant chemotherapy (high dose cisplatin) radiation was an intent to cure. This approach has been shown to improve overall survival and decrease the risk of compared to radiation therapy alone ( [place]-analysis of chemotherapy in head and neck cancer (MACH- [place]): a comprehensive analysis by tumour site. Herson P, Ashli B, Milan V, Richie A, Tash C, Willian J, Yusef ERMELINDA, [facility]- Collaborative group Radiother Oncol. 2011;100(1):33. Started concomitant chemoradiation November 05, 2017. No excess toxicities but reported tinnitus 1 week following high-dose cisplatin, improved somewhat but did not completely resolve . 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 Painful dysphagia experienced as expected, weight loss noted. Plan: 1 continue concomitant chemoradiation with carboplatin Taxol on a weekly basis 2 continue follow-up closely on a weekly basis during the combined modality treatment 3 nutrition consult done, diet and oral hydration reviewed encouraged again to use her feeding tube . 4 BMX mouthwash and analgesics prescribed by radiation oncology 5 we will support tube feeds with IV hydration as needed and guided by blood work. Patient seen impression and plan reviewed Medications: Prescriptions This Visit Medication Instructions Recorded Levothyroxine [Synthroid] 50 mcg PO DAILY 10/07/17 Primary Care Provider: Felisa Abbott Referring Provider: Gloria Goode MD 12/10/17904 <Electronically signed by Gloria Goode MD> Date Gloria Goode MD Cosigner Signature: Date (if applicable) CC: CBC W/DIFF, AUTOMATED Collected: 12/10/2017 Status: F Source: ILIA 8:09 AM [facility] REPOSITORY TYPE CODE TESTS RESULT OUT OF RANGE REFERENCE UNITS LAB L100.1000 4.4-11.0 K/mm3 Low WBC 4.1 LAB L100.1200 4.2-5.4 M/mm3 Low RBC 3.90 LAB L100.1300 12.0-15.0 g/dl Normal HGB 12.1 LAB L100.1400 37-47 % Normal HCT 37.6 LAB L100.1500 81-99 fL Normal MCV 96.4 LAB L100.1600 27.0-32.0 pg Normal MCH 31.0 LAB L100.1700 32-36 g/gl Normal MCHC 32.2 LAB L100.1810 11.6-14.6 % Normal RDW CV 13.9 LAB L100.1820 35.1-43.9 fl High RDW SD 47.9 LAB L100.1900 150-450 K/mm3 Normal PLT 194 LAB L100.2000 6.2-12.0 fl Normal MPV 9.2 LAB L100.2100 47-70 % High NEUT% 85.7 LAB L100.2200 19-41 % Low LY% 11.2 LAB L100.2300 0-10 % Normal MONO% 1.7 LAB L100.2400 0-5 % Normal EO% 1.2 LAB L100.2500 0-1 % Normal BASO% 0.2 LAB L100.2550 0.0-0.9 % Normal IM GRAN % 0.000 Result Comment: IG% - Immature Granulocytes (promyelocytes, myelocytes and metamyelocytes) > 1% indicates that a LEFT SHIFT is Present. LAB L100.2620 2.0-7.7 X10 3/uL Normal Absolute Neut 3.5 LAB L100.2720 0.83-4.51 X10 3/ul Low Absolute Lymph 0.46 Performed By: #### L100.0100 #### [facility] [facility], [address] RADIATION ONCOLOGY Observed: 12/04/2017 Status: F Source: [place] VISIT 12:47 PM [facility] REPOSITORY [facility] [address] [place] [address]. 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 Plan was made to complete definitive chemoradiation with concurrent cisplatin every 3 weeks. Simultaneous integrated boost radiation plan was generated to treat the gross primary disease, right neck disease and concerning left neck lymph nodes to 7000 cGy, the bilateral neck high levels 2 and 1B through 3 as well as level 4 on the right to 6300 cGy, and the left level 4 and bilateral supraclavicular region to 5600 cGy all completed in 35 fractions. Due to treatment delay of 1 week caused by hospitalwide computer system issues a re-simulation was performed and slight adjustments made to the treatment volumes due to slight increase in apparent disease volume. Treatment Data: Treatment Site: Base of tongue and bilateral neck Current total dose/Total dose planned: 4400 cGy / 7000 cGy Fraction number: Chemotherapy: Concurrent cisplatin 100 mg/m every 3 weeks (cycle one 11/05/17), switched to weekly carbo/taxol for cycle 2 due to tinnitus (started 11/26/17). Subjective: Patient reports doing ok overall. She describes having 5- 6 out of 10 pain involving the base of tongue region at baseline but has been able to swallow well and is eating anything she wants, pain is with swallowing. She does not take pain medication other than neurontin and MMW tid. PEG is in place but she is not having to use the PEG at all. Does report right ear tinnitus after cisplatin and will have chemo change for cycle 2, tinnitus is intermittent. Taste: moderate changes Xerostomia: mild, using biotene and mucinex Pain: 5-6 / 10, mostly when swallowing, improved with oxycodone 5 mg prn Appetite: normal Diet: unrestricted, mostly soft food, using PEG now due to soreness, evaluated by swinging cut off saw operator and following recommendations Skin: mild erythema, no pain or desquamation Mucositis: grade 1-2 in posterior pharynx Fatigue: none Rinses: using MMW, green tea, and Baking soda/salt rinses tid Height/Weight/BMI: Height: 5 ft 2 in Weight: 89.448 kg Previous/Normal Weight: weight at first treatment 190.4 lbs, 11/06/17: 197 lbs, 11/13/17: 191.2 lbs, 11/26/17: 190 lbs, 12/04/17: 188.3 lbs BMI: 34.3 % Weight Gain/Loss: Vital Signs Temperature 98.2 F 12/04/17 10:16 Temperature Source Oral 12/04/17 10:16 Pulse Rate 76 12/04/17 10:16 Respiratory Rate 16 12/04/17 10:16 Objective: Gen: NAD ENT: tumor appreciated in right greater than left BOT with tongue depressor. mucus membranes somewhat dry, no thrush. Edentulous Neck: no skin erythema. 3-4 cm firm level II-III adenopathy at initiation of treatment, now softer and about 1-2 cm, much less protuberant and difficult to palpate Labs: Laboratory Tests WBC 4.2 L Hgb 12.5 Plt Count 243 BUN 12 Creatinine 0.57 Assessment: Tolerating radiation therapy well overall. All treatment related imaging has been reviewed and approved Chemotherapy: Developed tinnitus, will have change in chemo next week to carbo/taxol Xerostomia: Mild Pain: 5-6 at baseline Plan: Discussed timing of radiation related toxicities and various measures to improve symptoms Continue green tea rinses and baking soda/salt rinses Pain: Taking Neurontin as prescribed, Magic mouthwash tid at this time, can use qid; added liquid oxycodone which has helped. Skin: Discussed usage of skin lotion. Xerostomia: Mucinex, biotene, recommended clear diet soda rinses Follow-up next week or sooner if needed. Thank you for allowing me to participate in the management and care of your patient. If I may answer any questions in the interim, please do not hesitate to contact me at any time. Pierce Pascal DO, MS Security Incident Handler, Department of Radiation Oncology [facility] 12/04/17 1242 <Electronically signed by Pierce Pascal DO> Date Pierce Kapoor Signature: Date (if applicable) CC: ONCOLOGY VISIT REPORT Observed: 12/03/2017 Status: F Source: [place] 9:20 AM [facility] REPOSITORY [facility] [place] [address] OFFICE VISIT Date of Service: 12/03/17 0857 MR#: [id number] Acct: [id number] Name: FCO GARNETT Rep #: [id number] : 1970 From: Gloria Goode MD Age/Sex: 47/F Location: [facility] Status: Signed - Problem List (1) Tongue cancer Status: Acute Comment: HPV + (2) Regional lymph node metastasis present Status: Acute (3) Tinnitus Status: Acute - Date of Service Date of Service:: 12/03/17 - Chief Complaint Tongue cancer - History of Present Illness Patient is a 46-year-old female, smoker till September 2017 who presented with a painless enlarging right neck mass since July 2017. Was seen by Dr. 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 CAT scan of the neck in August 2017 confirmed the mass measuring up to 3.6 cm in maximum diameter with right neck necrotic adenopathy measuring up to 3.9 cm in maximum diameter. At least 3 pathologic nodes identified on imaging. The mass was felt to cross the midline and involve the right lingual tonsil and the right aryepiglottic fold. Patient has lost only a few pounds of weight only recently and a feeding tube was placed by Dr. Mattson and she was referred for definitive chemoradiation. Patient elected to come to [facility] close to home. PET/CT staging September 2017 showed no evidence of distant metastatic disease. Treatment: Combined radiation therapy and high-dose cisplatin (X1) November 05, 2017, switched to weekly Carbo-Taxol November 26, 2017 due to toxicity (Tinnitus) . 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 UNSURE OF WHICH ONE HYSTERECTOMY 1994 Tongue cancer Social History Social History: No changes Smoking Status Former smoker Review of Systems Constitutional:: Reports: Fatigue. Denies: Fever, Sweats, Weight loss, Appetite change, Chills Cardiovascular:: Denies: Chest pain, Palpitations, Dyspnea on exertion, Orthopnea, PND, Shortness of breath Respiratory: Denies: Cough, Hemoptysis, Shortness of Breath, Wheezing Gastrointestinal:: Reports: Dysphagia. Denies: Nausea, Vomiting, Diarrhea, Constipation, Hematochezia Genitourinary: Denies: Dysuria, Hematuria, 15, Flank pain Musculoskeletal:: Denies: Back pain, Myalgia, Arthralgia Skin: Denies: Rash, Skin Changes, Wounds Neurological:: Denies: Headache, Dizziness, Visual changes, Tinnitus, Hearing loss Psychiatric: Denies: Anxiety, Depression, Homicidal Ideations, Suicidal Ideations Vital Signs Height 5 ft 2 in Weight: 85.548 kg Weight in Pounds 188.6 lbs BMI 34.3 Pulse Ox 97 - Physical Exam General: Alert, Oriented x3, No apparent distress, - - ECOG 1 HEENT: Atraumatic, PERRLA, EOMI, Normocephalic Oropharynx:: Dry mucosa Neck:: Supple, Trachea midline, - - Port okay. Negative for: JVD, bilateral Cardiac:: Regular rate, Regular rhythm, Normal S1, Normal S2. Negative for: Murmur Lungs: Clear to auscultation, Excusion symmetrical. Negative for: Rhonchi, Wheezes Abdomen:: Soft, Non-tender, Non-distended. 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 The patient is at least clinical prognostic stage II for HPV positive head and neck cancer (T3, N1, MX). She is anatomic stage IV (T3, N2, Mx) by AJCC UICC 2017. I reviewed the most recent NCC and guidelines and advice definitive concomitant chemotherapy (high dose cisplatin) radiation was an intent to cure. This approach has been shown to improve overall survival and decrease the risk of compared to radiation therapy alone ( [place]-analysis of chemotherapy in head and neck cancer (MACH- [place]): a comprehensive analysis by tumour site. Herson P, Ashli B, Milan V, Richie A, Tash C, Willian J, Yusef ERMELINDA, [facility]- Collaborative group Radiother Oncol. 2011;100(1):33. Started concomitant chemoradiation November 05, 2017. No excess toxicities but reported tinnitus 1 week following high-dose cisplatin, improved somewhat but did not completely resolve . 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 Painful dysphagia experienced as expected, weight loss noted. Plan: 1 continue concomitant chemoradiation with carboplatin Taxol on a weekly basis 2 continue follow-up closely on a weekly basis during the combined modality treatment 3 nutrition consult done, diet and oral hydration reviewed encouraged again to use her feeding tube and while waiting for insurance cover for tube feeds encouraged her to use supplements such as boost and homemade milkshakes. 4 BMX mouthwash and analgesics prescribed by radiation oncology Patient seen impression and plan reviewed Medications: Prescriptions This Visit Medication Instructions Recorded Levothyroxine [Synthroid] 50 mcg PO DAILY 10/07/17 Varenicline [Chantix] 1 mg PO DAILY 10/07/17 Dexamethasone 4 mg PO DAILY 10 Days #10 tab 10/14/17 Medications Added to Medication List This Visit 0.9% Normal Saline Med 12/03/17 00:00 Active Primary Care Provider: Felisa Abbott Referring Provider: Gloria Goode MD 12/03/17 7017 <Electronically signed by Gloria Goode MD> Date Gloria Cheney Signature: Date (if applicable) CC: CBC W/DIFF, AUTOMATED Collected: 12/03/2017 Status: C Source: [place] 8:05 AM [facility] REPOSITORY TYPE CODE TESTS RESULT OUT OF RANGE REFERENCE UNITS LAB L100.1000 4.4-11.0 K/mm3 Low WBC 4.2 LAB L100.1200 4.2-5.4 M/mm3 Low RBC 4.06 LAB L100.1300 12.0-15.0 g/dl Normal HGB 12.5 LAB L100.1400 37-47 % Normal HCT 39.4 LAB L100.1500 81-99 fL Normal MCV 97.0 LAB L100.1600 27.0-32.0 pg Normal MCH 30.8 LAB L100.1700 32-36 g/gl Low MCHC 31.7 LAB L100.1810 11.6-14.6 % Normal RDW CV 14.0 LAB L100.1820 35.1-43.9 fl High RDW SD 49.0 LAB L100.1900 150-450 K/mm3 Normal PLT 243 LAB L100.2000 6.2-12.0 fl Normal MPV 9.5 LAB L100.2100 47-70 % High NEUT% 81.5 LAB L100.2200 19-41 % Low LY% 9.7 LAB L100.2300 0-10 % Normal MONO% 6.9 LAB L100.2400 0-5 % Normal EO% 1.2 LAB L100.2500 0-1 % Normal BASO% 0.5 LAB L100.2550 0.0-0.9 % Normal IM GRAN % 0.200 Result Comment: IG% - Immature Granulocytes (promyelocytes, myelocytes and metamyelocytes) > 1% indicates that a LEFT SHIFT is Present. LAB L100.2620 2.0-7.7 X10 3/uL Normal Absolute Neut 3.4 LAB L100.2720 0.83-4.51 X10 3/ul Low Absolute Lymph 0.41 LAB L100.9900 Normal PATH REV Reviewed Result Comment: AMENDED REPORT 12/03/17 1603 PATH REV previously reported as: September radha Performed By: #### L100.0100 #### [facility] [address] [place], [address] RADIATION ONCOLOGY Observed: 11/26/2017 Status: F Source: [place] VISIT 1:19 PM [facility] REPOSITORY [facility] [address] [place] [address] OFFICE VISIT Date of Service: 11/26/17 1311 MR#: [id number] Acct: [id number] Name: FCO GARNETT Rep #: [id number] : 1970 From: Pierce Pascal Age/Sex: 47/F Location: [facility] Status: Signed Date of Service: 11/26/17 Diagnosis: Fco Garnett is a diagnosed with AJCC seventh edition stage DAVID (cT2-3N2bMx), AJCC eighth edition Stage II (cT2-3N1Mx), 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 Plan was made to complete definitive chemoradiation with concurrent cisplatin every 3 weeks. Simultaneous integrated boost radiation plan was generated to treat the gross primary disease, right neck disease and concerning left neck lymph nodes to 7000 cGy, the bilateral neck high levels 2 and 1B through 3 as well as level 4 on the right to 6300 cGy, and the left level 4 and bilateral supraclavicular region to 5600 cGy all completed in 35 fractions. Due to treatment delay of 1 week caused by hospitalwide computer system issues a re-simulation was performed and slight adjustments made to the treatment volumes due to slight increase in apparent disease volume. Treatment Data: Treatment Site: Base of tongue and bilateral neck Current total dose/Total dose planned: 3200 cGy / 7000 cGy Fraction number: Chemotherapy: Concurrent cisplatin 100 mg/m every 3 weeks (cycle one 11/05/17), switched to weekly carbo/taxol for cycle 2 due to tinnitus (started 11/26/17). Subjective: Patient reports doing well overall. She describes having 5-6 out of 10 pain involving the base of tongue region at baseline but has been able to swallow well and is eating anything she wants, pain is with swallowing. She does not take pain medication other than neurontin and MMW tid. PEG is in place but she is not having to use the PEG at all. Does report right ear tinnitus after cisplatin and will have chemo change for cycle 2, tinnitus is intermittent. Taste: mild changes Xerostomia: mild, using biotene and mucinex Pain: 5-6 / 10, mostly when swallowing Appetite: normal Diet: unrestricted, mostly soft food Skin: no erythema Mucositis: none, small sore on hard palate Fatigue: none Rinses: using MMW and Baking soda/salt rinses tid Height/Weight/BMI: Height: 5 ft 2 in Weight: 89.448 kg Previous/Normal Weight: weight at first treatment 190.4 lbs, 11/06/17: 197 lbs, 11/13/17: 191.2 lbs, 11/26/17: 190 lbs BMI: 34.3 % Weight Gain/Loss: Vital Signs Temperature 98.0 F 11/26/17 08:50 Temperature Source Oral 11/26/17 08:50 Pulse Rate 69 11/26/17 08:50 Respiratory Rate 17 11/26/17 08:50 Objective: Gen: NAD ENT: tumor appreciated in right greater than left BOT with tongue depressor. mucus membranes somewhat dry, no thrush. Edentulous Neck: no skin erythema. 3-4 cm firm level II-III adenopathy at initiation of treatment, now softer and about 2-3 cm, much less protuberant Labs: Laboratory Tests WBC 2.3 L Hgb 12.1 Plt Count 291 BUN 12 Creatinine 0.57 Assessment: Tolerating radiation therapy well overall. All treatment related imaging has been reviewed and approved Chemotherapy: Developed tinnitus, will have change in chemo next week to carbo/taxol Xerostomia: Mild Pain: 5-6 at baseline Plan: Discussed timing of radiation related toxicities and various measures to improve symptoms Continue green tea rinses and baking soda/salt rinses Pain: Taking Neurontin not as prescribed, re-instructed on appropriate dosing, will try 3 in am, and 3 in pm with one in mid day as she thought this made her tired, Magic mouthwash tid at this time, can use qid Skin: Discussed usage of skin lotion. Xerostomia: Mucinex, biotene, recommended clear diet soda rinses Follow-up next week or sooner if needed. Thank you for allowing me to participate in the management and care of your patient. If I may answer any questions in the interim, please do not hesitate to contact me at any time. Pierce Pascal DO, MS Security Incident Handler, Department of Radiation Oncology [facility] 11/26/17 131 <Electronically signed by Pierce Pascal DO> Date Pierce Pascal DO Cosigner Signature: Date (if applicable) CC: ONCOLOGY VISIT REPORT Observed: 11/26/2017 Status: F Source: [place] 9:20 AM [facility] [address] [place] [address] [place] [address] OFFICE VISIT Date of Service: 11/26/17823 MR#: [id number] Acct: [id number] Name: FCO GARNETT Rep #: [id number] : 1970 From: Gloria Goode MD Age/Sex: 47/F Location: [facility] Status: Signed - Problem List (1) Tongue cancer Status: Acute Comment: HPV + (2) Regional lymph node metastasis present Status: Acute (3) Tinnitus Status: Acute - Date of Service Date of Service:: 11/26/17 - Chief Complaint Tongue cancer on treatment - History of Present Illness Patient is a 46-year-old female, smoker till September 2017 who presented with a painless enlarging right neck mass since July 2017. Was seen by Dr. 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 CAT scan of the neck in August 2017 confirmed the mass measuring up to 3.6 cm in maximum diameter with right neck necrotic adenopathy measuring up to 3.9 cm in maximum diameter. At least 3 pathologic nodes identified on imaging. The mass was felt to cross the midline and involve the right lingual tonsil and the right aryepiglottic fold. Patient has lost only a few pounds of weight only recently and a feeding tube was placed by Dr. Mattson and she was referred for definitive chemoradiation. Patient elected to come to [facility] close to home. PET/CT staging September 2017 showed no evidence of distant metastatic disease. Treatment: Combined radiation therapy and high-dose cisplatin (X1) November 05, 2017. 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 UNSURE OF WHICH ONE HYSTERECTOMY 1994 Tongue cancer Social History Social History: No changes Smoking Status Former smoker Review of Systems Constitutional:: Reports: Fatigue. Denies: Fever, Sweats, Weight loss, Appetite change, Chills Cardiovascular:: Denies: Chest pain, Palpitations, Dyspnea on exertion, Orthopnea, PND, Shortness of breath Respiratory: Denies: Cough, Hemoptysis, Shortness of Breath, Wheezing Gastrointestinal:: Reports: Dysphagia. Denies: Abdominal pain, Nausea, Vomiting, Diarrhea, Constipation, Hematochezia Genitourinary: Denies: Dysuria, Hematuria, 15, Flank pain Musculoskeletal:: Denies: Back pain, Myalgia, Arthralgia Skin: Denies: Rash, Skin Changes, Wounds Neurological:: Reports: Tinnitus - Comes and goes No notable hearing loss. Denies: Headache, Dizziness, Visual changes, Hearing loss Psychiatric: Denies: Anxiety, Depression, Homicidal Ideations, Suicidal Ideations Vital Signs Height 5 ft 2 in Weight: 86.954 kg Weight in Pounds 191.7 lbs BMI 34.3 Pulse Ox 99 - Physical Exam General: Alert, Oriented x3, No apparent distress, - - ECOG 1 HEENT: Atraumatic, PERRLA, EOMI, Normocephalic Oropharynx:: Dry mucosa Neck:: Supple, Trachea midline, - - Port okay. Negative for: JVD, bilateral Cardiac:: Regular rate, Regular rhythm, Normal S1, Normal S2. Negative for: Murmur Lungs: Clear to auscultation, Excusion symmetrical. Negative for: Rhonchi, Wheezes Abdomen:: Soft, Non-tender, Non-distended, - - Feeding tube okay. 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 The patient is at least clinical prognostic stage II for HPV positive head and neck cancer (T3, N1, MX). She is anatomic stage IV (T3, N2, Mx) by AJCC UICC 2017. I reviewed the most recent NCC and guidelines and advice definitive concomitant chemotherapy (high dose cisplatin) radiation was an intent to cure. This approach has been shown to improve overall survival and decrease the risk of compared to radiation therapy alone ( [place]-analysis of chemotherapy in head and neck cancer (MACH- [place]): a comprehensive analysis by tumour site. Herson P, Ashli B, Milan V, Richie A, Tash C, Willian J, Yusef ERMELINDA, [facility]- Collaborative group Radiother Oncol. 2011;100(1):33. Started concomitant chemoradiation November 05, 2017. No excess toxicities but reported tinnitus 1 week following high-dose cisplatin, improved somewhat but did not completely resolve . 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 Plan: 1 continue concomitant chemoradiation changing from high-dose cisplatin to carboplatin Taxol on a weekly basis 2 continue follow-up closely on a weekly basis during the combined modality treatment 3 nutrition consult done, diet and oral hydration reviewed encouraged to use her feeding tube Patient seen r impression and plan reviewed Medications: Prescriptions This Visit Medication Instructions Recorded Levothyroxine [Synthroid] 50 mcg PO DAILY 10/07/17 Varenicline [Chantix] 1 mg PO DAILY 10/07/17 Dexamethasone 4 mg PO DAILY 10 Days #10 tab 10/14/17 Medications Added to Medication List This Visit 0.9% Normal Saline Med 11/26/17 00:00 Active Primary Care Provider: Felisa Abbott Referring Provider: Gloria Goode MD 11/26/17 0920 <Electronically signed by Gloria Goode MD> Date Gloria Goode MD Cosigner Signature: Date (if applicable) CC: CBC W/DIFF, AUTOMATED Collected: 11/26/2017 Status: F Source: [place] 8:23 AM [facility] REPOSITORY TYPE CODE TESTS RESULT OUT OF RANGE REFERENCE UNITS LAB L100.1000 4.4-11.0 K/mm3 Low WBC 2.3 LAB L100.1200 4.2-5.4 M/mm3 Low RBC 3.90 LAB L100.1300 12.0-15.0 g/dl Normal HGB 12.1 LAB L100.1400 37-47 % Normal HCT 37.7 LAB L100.1500 81-99 fL Normal MCV 96.7 LAB L100.1600 27.0-32.0 pg Normal MCH 31.0 LAB L100.1700 32-36 g/gl Normal MCHC 32.1 LAB L100.1810 11.6-14.6 % Normal RDW CV 14.0 LAB L100.1820 35.1-43.9 fl High RDW SD 49.4 LAB L100.1900 150-450 K/mm3 Normal PLT 291 LAB L100.2000 6.2-12.0 fl Normal MPV 8.9 LAB L100.2100 47-70 % Normal NEUT% 54.4 LAB L100.2200 19-41 % Low LY% 17.3 LAB L100.2300 0-10 % High MONO% 22.1 LAB L100.2400 0-5 % Normal EO% 4.9 LAB L100.2500 0-1 % High BASO% 1.3 LAB L100.2550 0.0-0.9 % Normal IM GRAN % 0.000 Result Comment: IG% - Immature Granulocytes (promyelocytes, myelocytes and metamyelocytes) > 1% indicates that a LEFT SHIFT is Present. LAB L100.2620 2.0-7.7 X10 3/uL Low Absolute Neut 1.2 LAB L100.2720 0.83-4.51 X10 3/ul Low Absolute Lymph 0.39 LAB L100.4500 Normal SMEAR COMMENT COMMENT Result Comment: SLIDE SCANNED - LYMPHOPENIA NOTED. Performed By: #### L100.0100 #### [facility] [address] [place], [place], [address] COMPREHENSIVE METABOLIC Collected: 11/26/2017 Status: F Source: [facility] 8:22 AM [facility] REPOSITORY TYPE CODE TESTS RESULT OUT OF RANGE REFERENCE UNITS LAB L501.0100 74-106 mg/dL Normal GLU 84 Result Comment: Please note revised GLUCOSE reference range effective 2017. LAB L501.1000 7-18 mg/dL Normal BUN 12 LAB L501.1100 0.55-1.02 mg/dL Normal CREAT,SERUM 0.57 Result Comment: The validity of the calculated GFR AND GFRAA in patients over 70 years has not been determined. Clinical correlation is essential. LAB L501.1110 >60 mL/min Normal EST GFR 122 Result Comment: Non- GFR Calc LAB L501.1115 >60 mL/min Normal EST GFR - AA 147 Result Comment: GFR Calc LAB L501.1255 ml/min Normal Estimated CRCL 96.50 LAB L501.1300 10-20 RATIO High BUN/CRE 21.2 LAB L501.1500 6.4-8. g/dL Normal 2 T PROT 6.7 LAB L501.1800 3.2-5. g/dL Low 0 ALB 3.1 LAB L501.1950 2.2-4. g/dL Normal 2 GLOB 3.6 LAB L501.2000 0.9-2. RATIO Normal 4 A/G 0.9 LAB L501.2200 8.5-10 mg/dL Normal .1 CA 8.5 LAB L501.4100 15-37 U/L Low AST 10 LAB L501.4305 45-117 U/L Normal ALK P 79 LAB L501.4405 13-56 U/L Normal ALT 15 LAB L501.4600 0.20-1 mg/dL Normal .00 T BILI 0.20 LAB L501.5300 136-14 mmol/L Normal 5 NA 140 LAB L501.5600 3.5-5. mmol/L Normal 1 K 4.0 LAB L501.5900 98-107 mmol/L Normal CL 107 LAB L501.6100 21.0-3 mmol/L Normal 2.0 CO2 27.0 LAB L501.6200 5-15 Normal GAP 6 Performed By: #### L500.4050 #### [facility] [address] [place], [address] ESTABLISHED VISIT Observed: 11/25/2017 Status: UNK Source: [place] (OTOLARYNGOLOGY) 6:36 PM [facility] REPOS[facility] Chief Complaint 2 month follow up History of Present Illness Ms. FCO GARNETT, is a 47 year old female with T3N2M0 SCCa P16+ right BOT cancer. She is currently being treated with chemoradiation therapy. She was set to begin 10/28 but this was delayed until 11/05/17 . She received cisplatin and developed tinnitus so she is being transitioned to carboplatin and paclitaxel. She reports that she has to chew her food much slower and longer but no dysphagia. She is on r egular diet orally and tolerating PO intake. Her PEG tube is in place but not utilized yet. SHe denies any fever, chills, pain, nausea and vomiting. She is maintaining her weight. +right ear tinnitus due to the side effect of chemo/XRT. History: Dx: T3N2M0 SCCa, P16+ Right BOT 09/22/17 CT neck with contrast a right base of tongue mass which crosses the midline and involves nearly the entire BOT along with multiple (at least 3) necrotic/pathologic lymphadenopathy along with a f ew other enhancing lymph nodes. Largest cystic right neck mass measures 4cm. 09/23/17 Dr. 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 all other systems have been reviewed and are negative for complaint. Active Problems Cancer of base of tongue (141.0) (C01) Encounter for pre-operative examination (V72.84) (Z01.818) Metastatic squamous cell carcinoma to lymph node (196.9) (C77.9) Surgical History History of Gallbladder Surgery History of Hysterectomy Social History Currently working Former smoker (V15.82) (Z87.891) Occasional alcohol use from significant other (V61.03) (Z63.5) Allergies No Known Allergies Recorded By: Trisha Babcock; 10/02/2017 3:41:33 PM Current Meds Chantix 1 MG Oral Tablet; Therapy: 18Sep2017 to Recorded Rx By: MILENA; Dispense: 30 Days ; #:60 TABS; Refill: 0; MARCIAL = N; Record; Last Updated By: Trisha Babcock; 10/02/2017 8:44:17 AM Chantix Starting Month Larry 0.5 MG X 11 AND 1 MG X 42 Oral Tablet; Therapy: 18Sep2017 to Recorded Rx By: MILENA; Dispense: 28 Days ; #:53 TABS; Refill: 0; MARCIAL = N; Record; Last Updated By: Trisha Babcock; 10/02/2017 8:44:17 AM Levothyroxine Sodium 50 MCG Oral Tablet; Therapy: 20Sep2017 to Recorded Rx By: MILENA; Dispense: 30 Days ; #:30 TABS; Refill: 0; MARCIAL = N; Record; Last Updated By: Trisha Babcock; 10/02/2017 8:44:17 AM Vitals Vital Signs Recorded: [id number] 01:20PM Ftqrsx738 lb BMI Hittmbducp21.75 BSA Calculated1.87 Physical Exam Constitutional: General appearance: Appears older than stated age, well-nourished, well groomed. No acute distress. Communication: Normal communication - hot potato voice quality improved Psychiatric: Oriented to person, place and time. Normal mood and affect. Neurologic: Cranial nerves II-XII grossly intact and symmetric bilaterally. Head and Face: Head: Atraumatic with no masses, lesions or scarring. Face: Normal symmetry, no paralysis, synkinesis or facial tic. No scars or deformities. TMJ: Normal, no trismus. Eyes: Conjunctiva not edematous or erythematous Ears: External inspection of ears with no deformity, scars or masses. Nose: External inspection of nose: No nasal lesions, lacerations or scars. Oral Cavity/Mouth: Oral cavity and oropharynx mucosa moist. +mild mucositis Neck/Lymphatic: There is right pathologic lymphadenopathy previously 4cm has decreased in size and is less tender Cardiovascular: Examination of peripheral vascular system shows no clubbing or cyanosis. Respiratory: No respiratory distress increased work of breathing. Inspection of the chest with symmetric chest expansion and normal respiratory effort. Skin: No rashes in the head or neck Diagnoses/Problems Cancer of base of tongue (141.0) (C01) Metastatic squamous cell carcinoma to lymph node (196.9) (C77.9) Mucositis (528.00) (K12.30) Adverse effect of radiation therapy, initial encounter (990,E879.2) (T66.XXXA) Provider Impressions Fco Garnett 47 year old female presents today in follow up. She started chemoradiation 11/05/2017. She began with cisplatin but developed tinnitus and is being transitioned to carboplatin and paclitax el. Otherwise she has been doing well. No dysphagia. PEG remains in place. Continue chemoradiation. Follow up in 6 weeks. PET scan 03/27/18. Patient Discussion/Summary Dr. Mattson evaluated you today. She did not see anything concerning today. Your care plan is outlined below: -- Follow up with Dr. Mattson in 6 weeks. This appointment was scheduled at the end of your visit today. If you need to reschedule, please call the office at [phone]. Please keep in mind that last m inute cancellations often result in delayed follow-up appointments. Dr. Mattson makes every effort to run on time for your appointments. Therefore, if you are more than 20 minutes late for your appointment, unrelated to a scan or another appointment such as chemotherapy or radiation, your appointment will need to be rescheduled to another day. We appreciate your understanding. End of Encounter Meds Chantix 1 MG Oral Tablet; Therapy: 18Sep2017 to Recorded Chantix Starting Month Larry 0.5 MG X 11 AND 1 MG X 42 Oral Tablet; Therapy: 18Sep2017 to Recorded Levothyroxine Sodium 50 MCG Oral Tablet; Therapy: 20Sep2017 to Recorded Signatures Electronically signed by : Magalie Mattson MD; Nov 25 2017 6:36PM EST (Author) RADIATION ONCOLOGY Observed: 11/20/2017 Status: F Source: [place] VISIT 10:31 AM [facility] REPOSITORY [facility] [address] [place] [address] OFFICE VISIT Date of Service: 11/20/17 1026 MR#: [id number] Acct: [id number] Name: FCO GARNETT Rep #: [id number] : 1970 From: Pierce Pascal DO Age/Sex: 47/F Location: OMD Status: Signed Date of Service: 11/20/17 Diagnosis: Fco Garnett is a diagnosed with AJCC seventh edition stage DAVID (cT2-3N2bMx), AJCC eighth edition Stage II (cT2-3N1Mx), 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 Plan was made to complete definitive chemoradiation with concurrent cisplatin every 3 weeks. Simultaneous integrated boost radiation plan was generated to treat the gross primary disease, right neck disease and concerning left neck lymph nodes to 7000 cGy, the bilateral neck high levels 2 and 1B through 3 as well as level 4 on the right to 6300 cGy, and the left level 4 and bilateral supraclavicular region to 5600 cGy all completed in 35 fractions. Due to treatment delay of 1 week caused by hospitalwide computer system issues a re-simulation was performed and slight adjustments made to the treatment volumes due to slight increase in apparent disease volume. Treatment Data: Treatment Site: Base of tongue and bilateral neck Current total dose/Total dose planned: 2400 cGy / 7000 cGy Fraction number: Chemotherapy: Concurrent cisplatin 100 mg/m every 3 weeks (cycle one 11/05/17), switched to weekly carbo/taxol for cycle 2 due to tinnitus. Subjective: Patient reports doing well overall. She describes having 5-6 out of 10 pain involving the base of tongue region at baseline but has been able to swallow well and is eating anything she wants, pain is with swallowing. She does not take pain medication other than neurontin and MMW tid. PEG is in place but she is not having to use the PEG at all. Does report right ear tinnitus after cisplatin and will have chemo change for cycle 2. Taste: mild changes Xerostomia: mild, using biotene Pain: 5-6 / 10, mostly when swallowing Appetite: normal Diet: unrestricted, mostly soft food Skin: no erythema Mucositis: none, small sore on hard palate Fatigue: none Rinses: using MMW and Baking soda/salt rinses tid Height/Weight/BMI: Height: 5 ft 2 in Weight: 89.448 kg Previous/Normal Weight: weight at first treatment 190.4 lbs, 11/06/17: 197 lbs, 11/13/17: 191.2 lbs BMI: 34.3 % Weight Gain/Loss: Vital Signs Temperature 98.4 F 11/13/17 10:10 Temperature Source Oral 11/13/17 10:10 Pulse Rate 71 11/13/17 10:10 Respiratory Rate 16 11/13/17 10:10 Objective: Gen: NAD ENT: tumor appreciated in right greater than left BOT with tongue depressor. MMM, no thrush, small 1-2 mm erythematous lesion in anterior hard palate. Edentulous Neck: no skin erythema. 3-4 cm firm level II-III adenopathy at initiation of treatment, now softer and about 3 cm, less protuberant Labs: Laboratory Tests WBC 7.1 Hgb 13.2 Plt Count 231 BUN 14 Creatinine 0.58 Assessment: Tolerating radiation therapy well overall. All treatment related imaging has been reviewed and approved Chemotherapy: Developed tinnitus, will have change in chemo next week to carbo/taxol No current radiation related toxicities Pain: 5-6 at baseline Small lesion in anterior hard palate, will observe, doesn't appear to be thrush, unlikely RT related Plan: Discussed timing of radiation related toxicities and various measures to improve symptoms Continue green tea rinses and baking soda/salt rinses Pain: Taking Neurontin not as prescribed, re-instructed on appropriate dosing, will try 3 in am, and 3 in pm with one in mid day as she thought this made her tired, Magic mouthwash tid at this time, can use qid Skin: Discussed usage of skin lotion. Follow-up next week or sooner if needed. Thank you for allowing me to participate in the management and care of your patient. If I may answer any questions in the interim, please do not hesitate to contact me at any time. Pierce Pascal DO, MS Security Incident Handler, Department of Radiation Oncology [facility] 11/20/17 1031 <Electronically signed by Pierce Pascal DO> Date Piecre Pascal DO Cosigner Signature: Date (if applicable) CC: ONCOLOGY VISIT REPORT Observed: 11/18/2017 Status: F Source: [place] 9:58 AM [facility] REPOSITORY [facility] [address] [place] [address] OFFICE VISIT Date of Service: 11/18/1746 MR#: [id number] Acct: [id number] Name: FCO GARNETT Rep #: [id number] : 1970 From: Gloria Goode MD Age/Sex: 47/F Location: [facility] Status: Signed - Problem List (1) Tongue cancer Status: Acute Comment: HPV + (2) Regional lymph node metastasis present Status: Acute (3) Tinnitus Status: Acute - Date of Service Date of Service:: 11/18/17 - Chief Complaint Head and neck cancer - History of Present Illness Patient is a 46-year-old female, smoker till September 2017 who presented with a painless enlarging right neck mass since July 2017. Was seen by Dr. 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 CAT scan of the neck in August 2017 confirmed the mass measuring up to 3.6 cm in maximum diameter with right neck necrotic adenopathy measuring up to 3.9 cm in maximum diameter. At least 3 pathologic nodes identified on imaging. The mass was felt to cross the midline and involve the right lingual tonsil and the right aryepiglottic fold. Patient has lost only a few pounds of weight only recently and a feeding tube was placed by Dr. Mattson and she was referred for definitive chemoradiation. Patient elected to come to [facility] close to home. PET/CT staging September 2017 showed no evidence of distant metastatic disease. 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 UNSURE OF WHICH ONE HYSTERECTOMY 1994 Tongue cancer Social History Social History: No changes Smoking Status Former smoker Review of Systems Constitutional:: Reports: Fatigue, - - Sore throat. Denies: Fever, Sweats, Weight loss, Appetite change, Chills Cardiovascular:: Denies: Chest pain, Palpitations, Dyspnea on exertion, Orthopnea, PND, Shortness of breath Respiratory: Denies: Cough, Hemoptysis, Shortness of Breath, Wheezing Gastrointestinal:: Denies: Abdominal pain, Nausea, Vomiting, Diarrhea, Constipation, Hematochezia Genitourinary: Denies: Dysuria, Hematuria, 15, Flank pain Musculoskeletal:: Denies: Back pain, Myalgia, Arthralgia Skin: Denies: Rash, Skin Changes, Wounds Neurological:: Reports: Tinnitus - Less than the previous week but did not completely resolve Did not note any change in hearing. Denies: Headache, Dizziness, Visual changes, Hearing loss Psychiatric: Denies: Anxiety, Depression, Homicidal Ideations, Suicidal Ideations Vital Signs Height 5 ft 2 in Weight: 86.999 kg Weight in Pounds 191.8 lbs BMI 34.3 Pulse Ox 98 - Physical Exam General: Alert, Oriented x3, No apparent distress, - - ECOG 1 HEENT: Atraumatic, PERRLA, EOMI, Normocephalic, - - Hearing intact by gross testing (whisper sound) Oropharynx:: Dry mucosa Neck:: Supple, Trachea midline, - - Port okay. Negative for: JVD, bilateral Cardiac:: Regular rate, Regular rhythm, Normal S1, Normal S2. Negative for: Murmur Lungs: Clear to auscultation, Excusion symmetrical. Negative for: Rhonchi, Wheezes Abdomen:: Soft, Non-tender, Non-distended, - - PEG tube okay. Negative for: Hepatosplenomegaly Extremities:: Negative for: Cyanosis, Edema Neurological: Neuro grossly intact Skin:: Negative for: Lesions, Rash, Petechiae, Ecchymosis Psychiatric:: Appropriate affect, Euthymic Lymphatics:: Negative for: Cervical lymphadenopathy, Supraclavicular lymphadenopathy Laboratory Data: Laboratory Tests WBC 4.7 (4.4-11.0) K/mm3 RBC 3.91 L (4.2-5.4) M/mm3 Assessment and Plan 47-year-old female smoker (till September 2017) with HPV positive squamous cell cancer of the base of the tongue with metastases to right neck lymph nodes. The patient is at least clinical prognostic stage II for HPV positive head and neck cancer (T3, N1, MX). She is anatomic stage IV (T3, N2, Mx) by AJCC UICC 2017. I reviewed the most recent NCC and guidelines and advice definitive concomitant chemotherapy (high dose cisplatin) radiation was an intent to cure. This approach has been shown to improve overall survival and decrease the risk of compared to radiation therapy alone ( [place]-analysis of chemotherapy in head and neck cancer (MACH- [place]): a comprehensive analysis by tumour site. Herson P, Ashli B, Milan V, Richie A, Tash C, Willian J, Yusef ERMELINDA, [facility]- Collaborative group Radiother Oncol. 2011;100(1):33. Started concomitant chemoradiation November 05, 2017. No excess toxicities but reported tinnitus 1 week following high-dose cisplatin, improved somewhat but did not completely resolve by week two. 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 Plan: 1 continue concomitant chemoradiation changing from high-dose cisplatin to carboplatin Taxol on a weekly basis to start next week (when she was due for cycle 2 of high-dose cisplatin) 2 continue follow-up closely on a weekly basis during the combined modality treatment 3 nutrition consult done Patient seen r impression and plan reviewed Medications: Prescriptions This Visit Medication Instructions Recorded Levothyroxine [Synthroid] 50 mcg PO DAILY 10/07/17 Varenicline [Chantix] 1 mg PO DAILY 10/07/17 Dexamethasone 4 mg PO DAILY 10 Days #10 tab 10/14/17 Primary Care Provider: Felisa Abbott Referring Provider: Gloria Goode MD 11/18/17 0958 <Electronically signed by Gloria Goode MD> Date Gloria Goode MD Cosigner Signature: Date (if applicable) CC: CBC W/DIFF, AUTOMATED Collected: 11/18/2017 Status: F Source: [place] 9:09 AM [facility] REPOSITORY Order Comment: Reason for Laboratory Test . TYPE CODE TESTS RESULT OUT OF RANGE REFERENCE UNITS LAB L100.1000 4.4-11.0 K/mm3 Normal WBC 4.7 LAB L100.1200 4.2-5.4 M/mm3 Low RBC 3.91 LAB L100.1300 12.0-15.0 g/dl Normal HGB 12.0 LAB L100.1400 37-47 % Normal HCT 37.7 LAB L100.1500 81-99 fL Normal MCV 96.4 LAB L100.1600 27.0-32.0 pg Normal MCH 30.7 LAB L100.1700 32-36 g/gl Low MCHC 31.8 LAB L100.1810 11.6-14.6 % Normal RDW CV 13.9 LAB L100.1820 35.1-43.9 fl High RDW SD 48.0 LAB L100.1900 150-450 K/mm3 Low PLT 129 LAB L100.2000 6.2-12.0 fl Normal MPV 8.8 LAB L100.2100 47-70 % High NEUT% 77.1 LAB L100.2200 19-41 % Low LY% 11.9 LAB L100.2300 0-10 % Normal MONO% 8.5 LAB L100.2400 0-5 % Normal EO% 2.1 LAB L100.2500 0-1 % Normal BASO% 0.4 LAB L100.2550 0.0-0.9 % Normal IM GRAN % 0.000 Result Comment: IG% - Immature Granulocytes (promyelocytes, myelocytes and metamyelocytes) > 1% indicates that a LEFT SHIFT is Present. LAB L100.2620 2.0-7.7 X10 3/uL Normal Absolute Neut 3.6 LAB L100.2720 0.83-4.51 X10 3/ul Low Absolute Lymph 0.56 LAB L100.5500 ADEQ Normal PLT EST ADEQUATE Performed By: #### L100.0100, L500.4050, L501.5200 #### [facility] [address] [place], [place], [address] COMPREHENSIVE METABOLIC Collected: 11/18/2017 Status: F Source: [facility] 9:09 AM [facility] REPOSITORY Order Comment: Reason for Laboratory Test . TYPE CODE TESTS RESULT OUT OF RANGE REFERENCE UNITS LAB L501.0100 74-106 mg/dL Normal GLU 96 Result Comment: Please note revised GLUCOSE reference range effective 2017. LAB L501.1000 7-18 mg/dL Normal BUN 12 LAB L501.1100 0.55-1.02 mg/dL Low CREAT,SERUM 0.48 Result Comment: The validity of the calculated GFR AND GFRAA in patients over 70 years has not been determined. Clinical correlation is essential. LAB L501.1110 >60 mL/min Normal EST GFR 147 Result Comment: Non- GFR Calc LAB L501.1115 >60 mL/min Normal EST GFR - AA 178 Result Comment: GFR Calc LAB L501.1255 ml/min Normal Estimated CRCL 114.60 LAB L501.1300 10-20 RATIO High BUN/CRE 25.0 LAB L501.1500 6.4-8. g/dL 2 T PROT Normal 6.5 LAB L501.1800 3.2-5. g/dL Low 0 ALB 3.1 LAB L501.1950 2.2-4. g/dL 2 GLOB Normal 3.4 LAB L501.2000 0.9-2. RATIO 4 A/G Normal 0.9 LAB L501.2200 8.5-10 mg/dL Low .1 CA 8.2 LAB L501.4100 15-37 U/L Low AST 9 LAB L501.4305 45-117 U/L ALK P Normal 72 LAB L501.4405 13-56 U/L ALT Normal 22 LAB L501.4600 0.20-1 mg/dL .00 T BILI Normal 0.30 LAB L501.5300 136-14 mmol/L 5 NA Normal 141 LAB L501.5600 3.5-5. mmol/L 1 K Normal 3.8 LAB L501.5900 98-107 mmol/L High CL 109 LAB L501.6100 21.0-3 mmol/L 2.0 CO2 Normal 26.0 LAB L501.6200 5-15 GAP Normal 6 Performed By: #### L100.0100, L500.4050, L501.5200 #### [facility] [address] [place], [address] MAGNESIUM Collected: 11/18/2017 Status: F Source: [place] 9:09 AM [facility] REPOSITORY Order Comment: Reason for Laboratory Test . TYPE CODE TESTS RESULT OUT OF RANGE REFERENCE UNITS LAB L501.5200 1.6-2.6 mg/dL Normal MG 1.9 Performed By: #### L100.0100, L500.4050, L501.5200 #### [facility] [address] [place] [place], [address] RADIATION ONCOLOGY Observed: 11/13/2017 Status: F Source: [place] VISIT 1:56 PM [facility] REPOSITORY [facility] [address] [place], [place] [address] [place] [address] OFFICE VISIT Date of Service: 11/13/17 1347 MR#: [id number] Acct: [id number] Name: FCO GARNETT Rep #: [id number] : 1970 From: Pierce Pascal DO Age/Sex: 47/F Location: OMD Status: Signed Date of Service: 11/13/17 Diagnosis: Fco Garnett is a diagnosed with AJCC seventh edition stage DAVID (cT2-3N2bMx), AJCC eighth edition Stage II (cT2-3N1Mx), 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 Plan was made to complete definitive chemoradiation with concurrent cisplatin every 3 weeks. Simultaneous integrated boost radiation plan was generated to treat the gross primary disease, right neck disease and concerning left neck lymph nodes to 7000 cGy, the bilateral neck high levels 2 and 1B through 3 as well as level 4 on the right to 6300 cGy, and the left level 4 and bilateral supraclavicular region to 5600 cGy all completed in 35 fractions. Due to treatment delay of 1 week caused by hospitalwide computer system issues a re-simulation was performed and slight adjustments made to the treatment volumes due to slight increase in apparent disease volume. Treatment Data: Treatment Site: Base of tongue and bilateral neck Current total dose/Total dose planned: 1400 cGy / 7000 cGy Fraction number: Chemotherapy: Concurrent cisplatin 100 mg/m every 3 weeks (cycle one 11/05/17) Subjective: Patient reports doing well so far. She describes having 5- 6 out of 10 pain involving the base of tongue region at baseline but has been able to swallow well and is eating anything she wants. She does not take pain medication. PEG is in place but she is not having to use the PEG at all. Does report right ear tinnitus after cisplatin and will have chemo change for cycle 2. Taste: normal Xerostomia: none Pain: 5-6 / 10 Appetite: normal Diet: unrestricted, mostly soft food Skin: no erythema Mucositis: none Fatigue: none Rinses: using Green tea and Baking soda/salt rinses tid Height/Weight/BMI: Height: 5 ft 2 in Weight: 89.448 kg Previous/Normal Weight: weight at first treatment 190.4 lbs, 11/06/17: 197 lbs, 11/13/17: 191.2 lbs BMI: 34.3 % Weight Gain/Loss: Vital Signs Temperature 98.4 F 11/13/17 10:10 Temperature Source Oral 11/13/17 10:10 Pulse Rate 71 11/13/17 10:10 Respiratory Rate 16 11/13/17 10:10 Objective: Gen: NAD ENT: tumor appreciated in right greater than left BOT with tongue depressor. MMM, no thrush, no other oral lesions. Edentulous Neck: no skin erythema. 3-4 cm firm level II-III adenopathy stable Labs: Laboratory Tests WBC 7.1 Hgb 13.2 Plt Count 231 BUN 14 Creatinine 0.58 Assessment: Tolerating radiation therapy well overall. All treatment related imaging has been reviewed and approved Chemotherapy: Developed tinnitus, will have change in chemo next week No current radiation related toxicities Pain: 5-6 at baseline Plan: Discussed timing of radiation related toxicities and various measures to improve symptoms Continue green tea rinses and baking soda/salt rinses Pain: Taking Neurontin 300 tid and will increase, has Magic mouthwash but not using yet Skin: Discussed usage of skin lotion. Follow-up next week or sooner if needed. Thank you for allowing me to participate in the management and care of your patient. If I may answer any questions in the interim, please do not hesitate to contact me at any time. Pierce Pascal DO, MS Security Incident Handler, Department of Radiation Oncology [facility] 11/13/17 1358 <Electronically signed by Pierce Pacsal DO> Date Pierce Pascal DO [facility] Signature: Date (if applicable) CC: Gloria Goode MD ONCOLOGY VISIT REPORT Observed: 11/11/2017 Status: F Source: [place] 9:36 AM [facility] REPOSITORY [facility] [place] [address] OFFICE VISIT Date of Service: 11/11/17 0842 MR#: [id number] Acct: [id number] Name: DANYFCO Ladonna Rep #: [id number] : 1970 From: Gloria Goode MD Age/Sex: 47/F Location: [facility] Status: Signed - Problem List (1) Tongue cancer Status: Acute Comment: HPV + (2) Regional lymph node metastasis present Status: Acute - Date of Service Date of Service:: 11/11/17 - Chief Complaint Tongue cancer on treatment - History of Present Illness Patient is a 46-year-old female, smoker till September 2017 who presented with a painless enlarging right neck mass since July 2017. Was seen by Dr. 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 CAT scan of the neck in August 2017 confirmed the mass measuring up to 3.6 cm in maximum diameter with right neck necrotic adenopathy measuring up to 3.9 cm in maximum diameter. At least 3 pathologic nodes identified on imaging. The mass was felt to cross the midline and involve the right lingual tonsil and the right aryepiglottic fold. Patient has lost only a few pounds of weight only recently and a feeding tube was placed by Dr. Mattson and she was referred for definitive chemoradiation. Patient elected to come to [facility] close to home. PET/CT staging September 2017 showed no evidence of distant metastatic disease. 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 UNSURE OF WHICH ONE HYSTERECTOMY 1994 Tongue cancer Social History Social History: No changes Smoking Status Former smoker Review of Systems Constitutional:: Reports: Fatigue, - - Weight changes reflected fluid hydration status and overall is stable compared to day 1 of treatment. Denies: Fever, Sweats, Weight loss, Appetite change, Chills Cardiovascular:: Denies: Chest pain, Palpitations, Dyspnea on exertion, Orthopnea, PND, Shortness of breath Respiratory: Denies: Cough, Hemoptysis, Shortness of Breath, Wheezing Gastrointestinal:: Denies: Abdominal pain, Nausea, Vomiting, Diarrhea, Constipation, Hematochezia Genitourinary: Denies: Dysuria, Hematuria, 15, Flank pain Musculoskeletal:: Denies: Back pain, Myalgia, Arthralgia Skin: Denies: Rash, Skin Changes, Wounds Neurological:: Reports: Tinnitus - Started day 5 of treatment, did not appreciate any change in acuity of hearing. Denies: Headache, Dizziness, Visual changes, Hearing loss Psychiatric: Denies: Anxiety, Depression, Homicidal Ideations, Suicidal Ideations Vital Signs Height 5 ft 2 in Weight: 89.993 kg Weight in Pounds 198.4 lbs BMI 34.3 Pulse Ox 97 - Physical Exam General: Alert, Oriented x3, No apparent distress, - - ECOG 1 HEENT: Atraumatic, PERRLA, EOMI, Normocephalic, - - Hearing is intact by gross testing (whispers) Oropharynx:: Dry mucosa Neck:: Supple, Trachea midline, - - Port okay. Negative for: JVD, bilateral Cardiac:: Regular rate, Regular rhythm, Normal S1, Normal S2. Negative for: Murmur Lungs: Clear to auscultation, Excusion symmetrical. Negative for: Rhonchi, Wheezes Abdomen:: Soft, Non-tender, Non-distended, - - Feeding tube in place. Negative for: Hepatosplenomegaly Extremities:: Negative for: Cyanosis, Edema Neurological: Neuro grossly intact Skin:: Negative for: Lesions, Rash, Petechiae, Ecchymosis Psychiatric:: Appropriate affect, Euthymic Lymphatics:: Negative for: Cervical lymphadenopathy, Supraclavicular lymphadenopathy, Axillary lymphadenopathy Laboratory Data: To review in EMR, pending Assessment and Plan 47-year-old female smoker (till September 2017) with HPV positive squamous cell cancer of the base of the tongue with metastases to right neck lymph nodes. The patient is at least clinical prognostic stage II for HPV positive head and neck cancer (T3, N1, MX). She is anatomic stage IV (T3, N2, Mx) by AJCC UICC 2017. I reviewed the most recent NCC and guidelines and advice definitive concomitant chemotherapy (high dose cisplatin) radiation was an intent to cure. This approach has been shown to improve overall survival and decrease the risk of compared to radiation therapy alone ( [place]-analysis of chemotherapy in head and neck cancer (MACH- [place]): a comprehensive analysis by tumour site. Herson P, Ashli B, Milan V, Richie A, Tash C, Willian J, Yusef ERMELINDA, [facility]- Collaborative group Radiother Oncol. 2011;100(1):33. Plan: 1 Started concomitant chemoradiation November 05, 2017. Tolerated day 1 of cisplatin without excessive toxicities. Tinnitus but no notable change of hearing likely attributed to cisplatin will watch. 2 continue follow-up closely on a weekly basis during the combined modality treatment 3 nutrition consult done Patient seen r impression and plan reviewed Medications: Prescriptions This Visit Medication Instructions Recorded Levothyroxine [Synthroid] 50 mcg PO DAILY 10/07/17 Varenicline [Chantix] 1 mg PO DAILY 10/07/17 Dexamethasone 4 mg PO DAILY 10 Days #10 tab 10/14/17 Primary Care Provider: Felisa Abbott Referring Provider: Gloria Goode MD 11/11/17 0936 <Electronically signed by Gloria Goode MD> Date Gloria Goode MD Cosigner Signature: Date (if applicable) CC: CBC W/DIFF, AUTOMATED Collected: 11/11/2017 Status: F Source: [facility] 9:16 AM [facility] REPOSITORY Order Comment: Reason for Laboratory Test . TYPE CODE TESTS RESULT OUT OF RANGE REFERENCE UNITS LAB L100.1000 4.4-11.0 K/mm3 Normal WBC 7.1 LAB L100.1200 4.2-5.4 M/mm3 Normal RBC 4.20 LAB L100.1300 12.0-15.0 g/dl Normal HGB 13.2 LAB L100.1400 37-47 % Normal HCT 39.7 LAB L100.1500 81-99 fL Normal MCV 94.5 LAB L100.1600 27.0-32.0 pg Normal MCH 31.4 LAB L100.1700 32-36 g/gl Normal MCHC 33.2 LAB L100.1810 11.6-14.6 % Normal RDW CV 13.1 LAB L100.1820 35.1-43.9 fl Normal RDW SD 43.9 LAB L100.1900 150-450 K/mm3 Normal PLT 231 LAB L100.2000 6.2-12.0 fl Normal MPV 9.6 LAB L100.2100 47-70 % High NEUT% 75.2 LAB L100.2200 19-41 % Low LY% 14.4 LAB L100.2300 0-10 % Normal MONO% 8.5 LAB L100.2400 0-5 % Normal EO% 1.7 LAB L100.2500 0-1 % Normal BASO% 0.1 LAB L100.2550 0.0-0.9 % Normal IM GRAN % 0.100 Result Comment: IG% - Immature Granulocytes (promyelocytes, myelocytes and metamyelocytes) > 1% indicates that a LEFT SHIFT is Present. LAB L100.2620 2.0-7.7 X10 3/uL Normal Absolute Neut 5.3 LAB L100.2720 0.83-4.51 X10 3/ul Normal Absolute Lymph 1.02 Performed By: #### L100.0100, L500.4050 #### [facility] [address] [place], [place], [address] COMPREHENSIVE METABOLIC Collected: 11/11/2017 Status: F Source: [facility] 9:16 AM [facility] REPOSITORY Order Comment: Reason for Laboratory Test . TYPE CODE TESTS RESULT OUT OF RANGE REFERENCE UNITS LAB L501.0100 74-106 mg/dL Normal GLU 91 Result Comment: Please note revised GLUCOSE reference range effective 2017. LAB L501.1000 7-18 mg/dL Normal BUN 14 LAB L501.1100 0.55-1.02 mg/dL Normal CREAT,SERUM 0.58 Result Comment: The validity of the calculated GFR AND GFRAA in patients over 70 years has not been determined. Clinical correlation is essential. LAB L501.1110 >60 mL/min Normal EST GFR 120 Result Comment: Non- GFR Calc LAB L501.1115 >60 mL/min Normal EST GFR - AA 145 Result Comment: GFR Calc LAB L501.1255 ml/min Normal Estimated CRCL 94.84 LAB L501.1300 10-20 RATIO High BUN/CRE 24.3 LAB L501.1500 6.4-8. g/dL Normal 2 T PROT 6.9 LAB L501.1800 3.2-5. g/dL Normal 0 ALB 3.4 LAB L501.1950 2.2-4. g/dL Normal 2 GLOB 3.5 LAB L501.2000 0.9-2. RATIO Normal 4 A/G 1.0 LAB L501.2200 8.5-10 mg/dL Normal .1 CA 8.5 LAB L501.4100 15-37 U/L Normal AST 15 LAB L501.4305 45-117 U/L Normal ALK P 70 LAB L501.4405 13-56 U/L High ALT 57 LAB L501.4600 0.20-1 mg/dL Normal .00 T BILI 0.30 LAB L501.5300 136-14 mmol/L Low 5 NA 135 LAB L501.5600 3.5-5. mmol/L Normal 1 K 4.1 LAB L501.5900 98-107 mmol/L Normal CL 102 LAB L501.6100 21.0-3 mmol/L Normal 2.0 CO2 28.0 LAB L501.6200 5-15 Normal GAP 5 Performed By: #### L100.0100, L500.4050 #### [facility] [address] [place], [address] MAGNESIUM Collected: 11/11/2017 Status: F Source: [facility] [place] 9:16 AM [facility] REPOSITORY Order Comment: Reason for Laboratory Test . TYPE CODE TESTS RESULT OUT OF RANGE REFERENCE UNITS LAB L501.5200 1.6-2.6 mg/dL Normal MG 2.2 Performed By: #### L501.5200 #### [facility] [address] [facility] [place], [address] RADIATION ONCOLOGY Observed: 11/06/2017 Status: F Source: [place] VISIT 10:49 AM [facility] REPOSITORY [facility] [address] [place] [address]. 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 Plan was made to complete definitive chemoradiation with concurrent cisplatin every 3 weeks. Simultaneous integrated boost radiation plan was generated to treat the gross primary disease, right neck disease and concerning left neck lymph nodes to 7000 cGy, the bilateral neck high levels 2 and 1B through 3 as well as level 4 on the right to 6300 cGy, and the left level 4 and bilateral supraclavicular region to 5600 cGy all completed in 35 fractions. Due to treatment delay of 1 week caused by hospitalwide computer system issues a re-simulation was performed and slight adjustments made to the treatment volumes due to slight increase in apparent disease volume. Treatment Data: Treatment Site: Base of tongue and bilateral neck Current total dose/Total dose planned: 400 cGy / 7000 cGy Fraction number: Chemotherapy: Concurrent cisplatin 100 mg/m every 3 weeks (cycle one 11/05/17) Subjective: Patient reports doing well so far. She describes having 5- 6 out of 10 pain involving the base of tongue region at baseline but has been able to swallow well and is eating anything she wants. She does not take pain medication. PEG is in place but she is not having to use the PEG at all. Taste: normal Xerostomia: none Pain: 5-6 / 10 Appetite: normal Diet: unrestricted Skin: no erythema Mucositis: none Fatigue: none Height/Weight/BMI: Height: 5 ft 2 in Weight: 89.448 kg Previous/Normal Weight: weight at first treatment 190.4 lbs, 11/06/17: 197 lbs BMI: 34.3 % Weight Gain/Loss: Vital Signs Temperature 97.9 F 11/06/17 10:03 Temperature Source Oral 11/06/17 10:03 Objective: Gen: NAD ENT: tumor appreciated in right greater than left BOT with tongue depressor. MMM, no thrush, no other oral lesions. Edentulous Neck: no skin erythema. 3-4 cm firm level II-III adenopathy stable Labs: Laboratory Tests WBC 10.1 Hgb 13.0 Plt Count 255 BUN 12 Creatinine 0.58 Assessment: Tolerating radiation therapy well overall. All treatment related imaging has been reviewed and approved Chemotherapy: Going well without any problems No current radiation related toxicities Pain: 5-6 at baseline Plan: Discussed timing of radiation related toxicities and various measures to improve symptoms Recommended initiation of green tea rinses and baking soda/salt rinses Pain: Prescribed Neurontin to taper up for pain control and prevention of using opiates, also prescribe Magic mouthwash Skin: Discussed usage of skin lotion. Follow-up next week or sooner if needed. Thank you for allowing me to participate in the management and care of your patient. If I may answer any questions in the interim, please do not hesitate to contact me at any time. Pierce Pascal DO, MS [employer]ident Handler, Department of Radiation Oncology [facility] 11/06/17 1043 <Electronically signed by Pierce Pascal DO> Date Pierce Pascal DO Cosigner Signature: Date (if applicable) CC: ONCOLOGY VISIT REPORT Observed: 11/04/2017 Status: F Source: [facility] 4:29 PM [facility] REPOSITORY [facility] [address] [place] [address] [place] [address] OFFICE VISIT Date of Service: 11/04/17 1624 MR#: [id number] Acct: [id number] Name: FCO GARNETT Rep #: [id number] : 1970 From: Gloria Goode MD Age/Sex: 47/F Location: ONC Status: Signed - Problem List (1) Tongue cancer Status: Acute Comment: HPV + (2) Regional lymph node metastasis present Status: Acute - Date of Service Date of Service:: 11/04/17 - Chief Complaint Tongue cancer - History of Present Illness Patient is a 46-year-old female, smoker till September 2017 who presented with a painless enlarging right neck mass since July 2017. Was seen by Dr. 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 CAT scan of the neck in August 2017 confirmed the mass measuring up to 3.6 cm in maximum diameter with right neck necrotic adenopathy measuring up to 3.9 cm in maximum diameter. At least 3 pathologic nodes identified on imaging. The mass was felt to cross the midline and involve the right lingual tonsil and the right aryepiglottic fold. Patient has lost only a few pounds of weight only recently and a feeding tube was placed by Dr. Matston and she was referred for definitive chemoradiation. Patient elected to come to [facility] close to home. PET/CT staging September 2017 showed no evidence of distant metastatic disease. Treatment: Combined radiation therapy and high-dose cisplatin to start November 05, 2017 - Past Medical/Social History Past Medical History Cancer: Oral cancer Other Cancer History: PRECANCEROOUS CELLS IN OVARY. UNSURE OF WHICH ONE HYSTERECTOMY 1994 Tongue cancer Social History Social History: No changes Smoking Status Former smoker Review of Systems Constitutional:: Denies: Fever, Sweats, Weight loss, Appetite change, Chills Cardiovascular:: Denies: Chest pain, Palpitations, Dyspnea on exertion, Orthopnea, PND, Shortness of breath Respiratory: Denies: Cough, Hemoptysis, Shortness of Breath, Wheezing Gastrointestinal:: Denies: Abdominal pain, Nausea, Vomiting, Diarrhea, Constipation, Hematochezia Genitourinary: Denies: Dysuria, Hematuria, 15, Flank pain Musculoskeletal:: Denies: Back pain, Myalgia, Arthralgia Skin: Denies: Rash, Skin Changes, Wounds Neurological:: Denies: Headache, Dizziness, Visual changes, Tinnitus, Hearing loss Psychiatric: Denies: Anxiety, Depression, Homicidal Ideations, Suicidal Ideations Comment: Painless lymph node mass in the right neck unchanged Vital Signs Height 5 ft 2 in Weight: 86.364 kg Weight in Pounds 190.4 lbs BMI 34.3 Pulse Ox 96 - Physical Exam General: Alert, Oriented x3, No apparent distress, - - ECOG 1 HEENT: Atraumatic, PERRLA, EOMI, Normocephalic, - - No teeth Oropharynx:: Dry mucosa Neck:: Supple, Trachea midline, - - Port okay. Negative for: JVD, bilateral Cardiac:: Regular rate, Regular rhythm, Normal S1, Normal S2. Negative for: Murmur Lungs: Clear to auscultation, Excusion symmetrical. Negative for: Rhonchi, Wheezes Abdomen:: Soft, Non-tender, Non-distended, - - PEG tube okay. Negative for: Hepatosplenomegaly Extremities:: Negative for: Cyanosis, Edema Neurological: Neuro grossly intact Skin:: Negative for: Lesions, Rash, Petechiae, Ecchymosis Psychiatric:: Appropriate affect, Euthymic Lymphatics:: Cervical lymphadenopathy - Right neck 3 cm lymph node mass. Negative for: Supraclavicular lymphadenopathy Laboratory Data: Laboratory Tests WBC 10.1 (4.4-11.0) K/mm3 RBC 4.24 (4.2-5.4) M/mm3 Hgb 13.0 (12.0-15.0) g/dl Hct 40.3 (37-47) % MCV 95.0 (81-99) fL Assessment and Plan 47-year-old female smoker (till September 2017) with HPV positive squamous cell cancer of the base of the tongue with metastases to right neck lymph nodes. The patient is at least clinical prognostic stage II for HPV positive head and neck cancer (T3, N1, MX). She is anatomic stage IV (T3, N2, Mx) by AJCC UICC 2017. I reviewed the most recent NCC and guidelines and advice definitive concomitant chemotherapy (high dose cisplatin) radiation was an intent to cure. This approach has been shown to improve overall survival and decrease the risk of compared to radiation therapy alone ( [place]-analysis of chemotherapy in head and neck cancer (MACH- [place]): a comprehensive analysis by tumour site. Herson P, Ashli B, Milan V, Richie A, Tash C, Willian J, Yusef ERMELINDA, [facility]- Collaborative group Radiother Oncol. 2011;100(1):33. Plan: 1 patient will start concomitant chemoradiation November 05, 2017. 2 follow-up closely on a weekly basis during the combined modality treatment 3 nutrition consult done 4 chemo teaching session done Patient seen r impression and plan reviewed Medications: Prescriptions This Visit Medication Instructions Recorded Levothyroxine [Synthroid] 50 mcg PO DAILY 10/07/17 Medications Added to Medication List This Visit KCL 20MEQ in 0.9% NS 1,000 ml Med 11/05/17 00:00 Ordered IV 500 mls/hr Primary Care Provider: Felisa Abbott Referring Provider: Gloria Goode MD 11/04/17 3929 <Electronically signed by Gloria Goode MD> Date Gloria Goode MD Cosigner Signature: Date (if applicable) CC: CBC W/DIFF, AUTOMATED Collected: 11/04/2017 Status: F Source: [facility] 9:17 AM [facility] REPOSITORY TYPE CODE TESTS RESULT OUT OF RANGE REFERENCE UNITS LAB L100.1000 4.4-11.0 K/mm3 Normal WBC 10.1 LAB L100.1200 4.2-5.4 M/mm3 Normal RBC 4.24 LAB L100.1300 12.0-15.0 g/dl Normal HGB 13.0 LAB L100.1400 37-47 % Normal HCT 40.3 LAB L100.1500 81-99 fL Normal MCV 95.0 LAB L100.1600 27.0-32.0 pg Normal MCH 30.7 LAB L100.1700 32-36 g/gl Normal MCHC 32.3 LAB L100.1810 11.6-14.6 % Normal RDW CV 13.4 LAB L100.1820 35.1-43.9 fl High RDW SD 46.6 LAB L100.1900 150-450 K/mm3 Normal PLT 255 LAB L100.2000 6.2-12.0 fl Normal MPV 9.6 LAB L100.2100 47-70 % High NEUT% 85.0 LAB L100.2200 19-41 % Low LY% 11.6 LAB L100.2300 0-10 % Normal MONO% 3.2 LAB L100.2400 0-5 % Normal EO% 0.1 LAB L100.2500 0-1 % Normal BASO% 0.1 LAB L100.2550 0.0-0.9 % Normal IM GRAN % 0.000 Result Comment: IG% - Immature Granulocytes (promyelocytes, myelocytes and metamyelocytes) > 1% indicates that a LEFT SHIFT is Present. LAB L100.2620 2.0-7.7 X10 3/uL High Absolute Neut 8.6 LAB L100.2720 0.83-4.51 X10 3/ul Normal Absolute Lymph 1.17 Performed By: #### L100.0100, L500.4050, L501.5200 #### [facility] [address] [place], [address] COMPREHENSIVE METABOLIC Collected: 11/04/2017 Status: F Source: [facility] 9:17 AM [facility] REPOSITORY Order Comment: Reason for Laboratory Test Chemotherapy TYPE CODE TESTS RESULT OUT OF RANGE REFERENCE UNITS LAB L501.0100 74-106 mg/dL Normal GLU 97 Result Comment: Please note revised GLUCOSE reference range effective 2017. LAB L501.1000 7-18 mg/dL Normal BUN 12 LAB L501.1100 0.55-1.02 mg/dL Normal CREAT,SERUM 0.58 Result Comment: The validity of the calculated GFR AND GFRAA in patients over 70 years has not been determined. Clinical correlation is essential. LAB L501.1110 >60 mL/min Normal EST GFR 119 Result Comment: Non- GFR Calc LAB L501.1115 >60 mL/min Normal EST GFR - AA 144 Result Comment: GFR Calc LAB L501.1255 ml/min Normal Estimated CRCL 94.84 LAB L501.1300 10-20 RATIO High BUN/CRE 20.7 LAB L501.1500 6.4-8. g/dL Normal 2 T PROT 7.6 LAB L501.1800 3.2-5. g/dL Normal 0 ALB 3.4 LAB L501.1950 2.2-4. g/dL Normal 2 GLOB 4.2 LAB L501.2000 0.9-2. RATIO Low 4 A/G 0.8 LAB L501.2200 8.5-10 mg/dL Normal .1 CA 8.5 LAB L501.4100 15-37 U/L Low AST 9 LAB L501.4305 45-117 U/L Normal ALK P 84 LAB L501.4405 13-56 U/L Normal ALT 20 LAB L501.4600 0.20-1 mg/dL Normal .00 T BILI 0.20 LAB L501.5300 136-14 mmol/L Normal 5 NA 142 LAB L501.5600 3.5-5. mmol/L Normal 1 K 4.0 LAB L501.5900 98-107 mmol/L High CL 108 LAB L501.6100 21.0-3 mmol/L Normal 2.0 CO2 26.0 LAB L501.6200 5-15 Normal GAP 8 Performed By: #### L100.0100, L500.4050, L501.5200 #### [facility] [address] [place], [address] MAGNESIUM Collected: 11/04/2017 Status: F Source: [facility] [place] 9:17 AM [facility] REPOSITORY Order Comment: Reason for Laboratory Test Chemotherapy TYPE CODE TESTS RESULT OUT OF RANGE REFERENCE UNITS LAB L501.5200 1.6-2.6 mg/dL Normal MG 2.2 Performed By: #### L100.0100, L500.4050, L501.5200 #### [facility] [address] [place], [address] SURGERY VISIT REPORT Observed: 10/24/2017 Status: F Source: [place] 10:52 AM [facility] REPOSITORY [facility] [address] [place] [address] OFFICE VISIT Date of Service: 10/24/17 MR#: [id number] Acct: [id number] Name: DANYFCO Ladonna Rep #: [id number] : 1970 Provider: Michelle Sethi PA-C Age/Sex: 47/F Location: [facility] Status: Signed Intake Intake Visit Reasons: S/R Port Placement 10/18 TC Chief Complaint: Tongue cancer Signwriter Required: No Is patient in pain?: No Allergies No Known Allergies Allergy (Verified 10/24/17 10:27) Medications Levothyroxine [Synthroid] 50 mcg PO DAILY 10/07/17 [History Confirmed 10/24/17] Varenicline [Chantix] 1 mg PO DAILY 10/07/17 [History Confirmed 10/24/17] Dexamethasone 4 mg PO DAILY 10 Days #10 tab 10/14/17 [Rx Confirmed 10/24/17] Olanzapine [Zyprexa] 10 mg PO DAILY 15 Days #15 tab 10/14/17 [Rx Confirmed 10/24/17] PFSH Medical History Cancer of base of tongue (Acute) IBS (irritable bowel syndrome) (Acute) Thyroid disease (Acute) peg tube (Acute) Surgical History History of cholecystectomy (Acute) History of hysterectomy (Acute) history PEG tube placement (Acute) history port placement (Acute) Family History Father Lung cancer Diabetes Mother Diabetes Social History Smoking Status: Former smoker HPI HPI HPI: FCO GARNETT, is a 47 F I am following for metastatic tongue cancer. Dr. Concepcion performed a left IJ port-a-cath on 2017. Patient tolerated the procedure well. She notes minimal amount of discomfort. She denies active drainage. She starts chemotherapy on Saturday. Exam Const General: cooperative, healthy appearing, comfortable, no acute distress Chest Other: Left chest- incision c/d/i. No erythema or infection noted. Sutures were removed. Steri-strips were placed. Minimal amount of ecchymosis noted. Assessment AND Plan Problems 1. Tongue cancer C02.9 HPV + 2. Regional lymph node metastasis present C77.9 Plan - Follow-up as needed Coding Level of Care Code Global Post Op Diagnoses Tongue cancer C02.9 Regional lymph node metastasis present C77.9 10/24/17 1052 <Electronically signed by Michelle Sethi PA-C> Date Michelle Sethi PA-C Cosigner Signature: Date (if applicable) CC: Felisa Abbott DISCHARGE INSTRUCTION Observed: 2017 Status: F Source: [facility] Medical Records Department [address] [place] [address] Instructions for Home/Discharge Instructions 10/18/17 1500 MR#: [id number] Acct: [id number] Name: FCO GARNETT Rep #: [id number] : 1970 47 From: Judd Concepcion MD PCP: Felisa Abbott Status: REG [facility] Discharge Diet: No Restrictions - Pain medication may cause nausea. You should typically eat light foods as you take your pain medication. Discharge Activity: Return to Normal Activity, May Shower - with your bandage in place in 1-2 days after surgery. DO NOT SHOWER WHEN YOUR PORT IS ACCESSED. Call your doctor if your incision/area has: Continuous Slow Oozing, Sudden Increased Bleeding, Increased Pain/ Swelling, Increased Redness Call your doctor if you observe: Fever of 101 or Higher Remove Dressing in (days):: 3 - When you remove the bandage, leave the steri-strips intact until they fall off. Allergies/Adverse Reactions: Allergies No Known Allergies Allergy (Verified 10/18/17 11:37) Medications to take at Discharge Levothyroxine [Synthroid] 50 mcg PO DAILY 10/07/17 Varenicline [Chantix] 1 mg PO DAILY 10/07/17 Dexamethasone 4 mg PO DAILY 10 Days #10 tablet 10/14/17 Olanzapine [Zyprexa] 10 mg PO DAILY 15 Days #15 tab 10/14/17 Primary Care Physician: Felisa Abbott [Primary Care Provider] - Please Follow Up With: Judd Concepcion MD When: Please call to schedule 7-10 day follow up appointment. [phone] 10/18/17 0775 <Electronically signed by Judd Concepcion MD> Date Judd Concepcion MD CC: Felisa Abbott OPERATIVE REPORT Observed: 2017 Status: F Source: [place] 2:59 PM [facility] REPOSITORY [facility] Medical Records Department [address] [place] [address] Operative Report 10/18/17 1458 MR#: [id number] Acct: [id number] Name: FCO GARNETT Rep #: [id number] : 1970 47 From: Judd Concepcion MD PCP: Felisa Abbott Status: REG [facility] Y Location: [place] [address] Problem List (1) Encounter for adjustment or management of vascular access device Status: Acute (2) Tongue cancer Status: Acute Comment: HPV + Report of Operation Date of Procedure: 10/18/17 Pre-Operative Diagnosis: Need for vascular access for chemotherapy Post-Operative Diagnosis: Same Surgery/Procedure Performed:: Left chest port placement utilizing left IJ, ultrasound and fluoroscopy-guided Description of Procedure: After obtaining informed consent patient was brought back to the operating room MAC anesthesia was induced and the left chest and neck were prepped in normal sterile fashion. Ultrasound was used to evaluate both IJ is in the left IJ was selected. Next, using a needle, the left IJ was accessed and a guidewire was passed on into the superior vena cava under fluoroscopy guidance. A small incision was made over the puncture site and the dilator introducer was placed over the guidewire. Next this was capped and the pocket was made for the port. 1% lidocaine with epinephrine was injected in the proposed port site. An incision was made with scalpel. Electrocautery was used to make a pocket under the skin and subcutaneous tissue. Hemostasis was obtained. Next, the catheter was tunneled up to the neck incision site and placed through the introducer. The peel-away introducer was removed and the position of the catheter was confirmed on fluoroscopy. Next, the catheter was trimmed and attached to the port with the locking device. Interrupted 2-0 PDS were used to anchor the port to the chest wall and then the port was placed inside the pocket. The pocket was then flushed with saline and the port irrigated with saline. There was good blood return and the port flushed easily. Next, heparin was injected into the port. The skin was closed with subcutaneous interrupted 3-0 Vicryl sutures and interrupted skin 3-0 nylon sutures. A single 3-0 Vicryl sutures placed under the skin at the neck incision site. Steri-Strips were placed as well as op sites. Patient tolerated procedure well, was taken to PACU in stable condition. Chest x-ray will be obtained. Grafts/Implants Used: 8 [place] PowerPort - Admit VTE Documentation VTE Mechan Device Prophylaxis: SCD's 10/18/17 1459 <Electronically signed by Judd Concepcion MD> Date Judd Concepcion MD CC: Felisa Abbott; Judd Concepcion MD Signed CXR FOR LINE PLACEMENT Observed: 2017 Status: F Source: [place] 2:12 PM [facility] REPOSITORY [facility] Imaging Services [address] [place] [address] CXR for Line Placement MR#: [id number] Acct: [id number] Name: FCO GARNETT Rep #: [id number] : 1970 F 47 From: Ricky Martell MD PCP: Felisa Abbott Status: REG [facility] [place] Study: CXR for Line Placement Date of Exam: 10/18/17 Exam# [id number] Ordering Dr: Judd Concepcion MD STUDY: X-RAY CHEST REASON FOR EXAM: Female, 47 years old. Port placement. TECHNIQUE: Single AP portable view of the chest. COMPARISON: None. FINDINGS: A left-sided portacatheter has been placed. Tip is at the midportion of the superior vena cava. EKG electrodes are seen. The lungs are clear and expanded. There is no demonstrated pleural abnormality. Normal size heart. Normal mediastinum and kaveh. Normal visualized pulmonary arteries. Normal visualized aortic arch and descending thoracic aorta. Normal visualized thoracic spine. Normal visualized ribs, clavicles, and shoulders. There is no demonstrated abnormality of the visualized soft tissue structures of the upper abdomen. RAD/CXR for Line Placement IMPRESSION: The tip of the left portacatheter is in the midportion of the superior vena cava. There is no evidence of pneumothorax. Electronically Signed: Ricky Martell MD at 15:18 EDT Tel [phone], Service support , CC: Felisa Abbott; Judd Concepcion MD Offal Trimmer: Signed ONCOLOGY VISIT REPORT Observed: 10/17/2017 Status: F Source: [place] 10:53 AM [facility] REPOSITORY [facility] [place] [address] OFFICE VISIT Date of Service: 10/17/17 1046 MR#: [id number] Acct: [id number] Name: FCO GARNETT Rep #: [id number] : 1970 From: Gloria Goode MD Age/Sex: 46/F Location: OMD Status: Signed - Problem List (1) Tongue cancer Status: Acute Comment: HPV + (2) Regional lymph node metastasis present Status: Acute - Date of Service Date of Service:: 10/17/17 - Chief Complaint Tongue cancer - History of Present Illness Patient is a 46-year-old female, smoker till September 2017 who presented with a painless enlarging right neck mass since July 2017. Was seen by Dr. 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 CAT scan of the neck in August 2017 confirmed the mass measuring up to 3.6 cm in maximum diameter with right neck necrotic adenopathy measuring up to 3.9 cm in maximum diameter. At least 3 pathologic nodes identified on imaging. The mass was felt to cross the midline and involve the right lingual tonsil and the right aryepiglottic fold. Patient has lost only a few pounds of weight only recently and a feeding tube was placed by Dr. Mattson and she was referred for definitive chemoradiation. Patient elected to come to [facility] close to home. PET/CT staging September 2017 showed no evidence of distant metastatic disease. Treatment: Combined radiation therapy and high-dose cisplatin to start October 28, 2017 - Past Medical/Social History Past Medical History Cancer: Oral cancer Other Cancer History: PRECANCEROOUS CELLS IN OVARY. UNSURE OF WHICH ONE HYSTERECTOMY 1993 Social History Social History: No changes Smoking Status Former smoker Review of Systems Comment: Unchanged, see my note of October 08, 2017 Vital Signs Height 5 ft 2 in Weight: 85.548 kg Weight in Pounds 188.6 lbs BMI 34.3 Pulse Ox 97 - Physical Exam General: Alert, No apparent distress, - - ECOG 1 Neck:: Negative for: JVD, bilateral Laboratory Data: Reviewed in EMR Laboratory Tests WBC 6.9 Hgb 14.3 Hct 43.3 MCV 94.3 Plt Count 332 Absolute Neuts (auto) 4.6 BUN 14 Creatinine 0.64 Est GFR (MDRD) Non-Af 105 Diagnostic Data: PET/CT September 2017: IMPRESSION: 1. ABNORMAL EXAMINATION INDICATIVE OF MALIGNANT VIABLE NEOPLASM. 2. Increased glucose concentration defined in the posterior aspect of the oral cavity, the pharyngeal mucosal space, tongue base extending to the hypopharynx fulfills quantitative criteria for viable neoplasm. 3. Enhanced glucose concentration observed in the right lateral neck fulfills quantitative criteria for viable neoplasm. 4. No other quantitatively significant hypermetabolic abnormalities are noted. There is no definitive scintigraphic evidence of distant metastatic disease. Assessment and Plan 46-year-old female smoker (till September 2017) with HPV positive squamous cell cancer of the base of the tongue with metastases to right neck lymph nodes. The patient is at least clinical prognostic stage II for HPV positive head and neck cancer (T3, N1, MX). She is anatomic stage IV (T3, N2, Mx) by AJCC UICC 2017. I reviewed the most recent NCC and guidelines and advice definitive concomitant chemotherapy (cisplatin) radiation was an intent to cure. This approach has been shown to improve overall survival and decrease the risk of compared to radiation therapy alone ( [place]-analysis of chemotherapy in head and neck cancer (MACH-NC): a comprehensive analysis by tumour site. Herson P, Ashli B, Benjistenjose V, Richie A, Tash C, Willian J, Yusef ERMELINDA, [facility]- Collaborative group Radiother Oncol. 2011;100(1):33. Plan: 1 radiation oncology consultation completed and will start concomitant chemoradiation October 28, 2017. 2 central venous access for chemotherapy and supportive hydration scheduled. 3 nutrition consult done 4 chemo teaching session done Patient seen with significant other impression and plan reviewed Medications: Prescriptions This Visit Medication Instructions Recorded Primary Care Provider: Felisa Abbott Referring Provider: Gloria Goode MD 10/17/17 7323 <Electronically signed by Gloria Goode MD> Date Gloria Goode MD Cosigner Signature: Date (if applicable) CC: ONCOLOGY VISIT REPORT Observed: 10/14/2017 Status: F Source: [place] 4:12 PM [facility] REPOSITORY [facility] [place] [address] OFFICE VISIT Date of Service: 10/14/17 1304 MR#: [id number] Acct: [id number] Name: FCO GARNETT Rep #: [id number] : 1970 From: Bette MCCORD Age/Sex: 46/F Location: D Status: Signed Subjective - Date of Service Date of Service:: 10/14/17 - Chief Complaint Chemotherapy Education-Cisplatin - History of Present Illness Patient is a 46-year-old female, smoker till September 2017 who presented with a painless enlarging right neck mass since July 2017. Was seen by Dr. 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 CAT scan of the neck in August 2017 confirmed the mass measuring up to 3.6 cm in maximum diameter with right neck necrotic adenopathy measuring up to 3.9 cm in maximum diameter. At least 3 pathologic nodes identified on imaging. The mass was felt to cross the midline and involve the right lingual tonsil and the right aryepiglottic fold. Patient has lost only a few pounds of weight only recently and a feeding tube was placed by Dr. Mattson and she was referred for definitive chemoradiation. Patient elected to come to [facility] close to home. - Interval History The patient is presenting to clinic for chemotherapy education. Reports she underwent PET/CT scan earlier this morning. Port to be placed by Dr. Concepcion on Saturday10/18/17 and appointment with swinging cut off saw operator tomorrow and 10/24/17, CT sim tomorrow. Describes good support system by way of significant other, family and friends. 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 UNSURE OF WHICH ONE HYSTERECTOMY 1993 Social History Social History: No changes Smoking Status Former smoker Review of Systems Constitutional:: Denies: Fever, Sweats, Weight loss, Appetite change, Chills Cardiovascular:: Denies: Chest pain, Palpitations, Dyspnea on exertion, Orthopnea, PND, Shortness of breath Respiratory: Denies: Cough, Hemoptysis, Shortness of Breath, Wheezing Gastrointestinal:: Denies: Abdominal pain, Nausea, Vomiting, Diarrhea, Constipation, Hematochezia Genitourinary: Denies: Dysuria, Hematuria, 15, Flank pain Musculoskeletal:: Denies: Back pain, Myalgia, Arthralgia Skin: Denies: Rash, Skin Changes, Wounds Neurological:: Denies: Headache, Dizziness, Visual changes, Tinnitus, Hearing loss Psychiatric: Denies: Anxiety, Depression, Homicidal Ideations, Suicidal Ideations Vital Signs Height 5 ft 2 in - Physical Exam General: Alert, Oriented x3, No apparent distress HEENT: Atraumatic, Normocephalic Oropharynx:: - - edentulous. Negative for: Dry mucosa Neck:: Supple, Lymphadenopathy - 3 cm right cervical, Trachea midline. Negative for: JVD, bilateral Cardiac:: Regular rate, Regular rhythm, Normal S1, Normal S2. Negative for: Murmur Lungs: Clear to auscultation, Excusion symmetrical. Negative for: Rhonchi, Wheezes Abdomen:: Bowel sounds x 4, Soft, Non-tender, Non-distended. Negative for: Hepatosplenomegaly Extremities:: Negative for: Cyanosis, Edema Neurological: Neuro grossly intact Skin:: Negative for: Lesions, Rash, Petechiae, Ecchymosis Psychiatric:: Appropriate affect, Euthymic Lymphatics:: Cervical lymphadenopathy. 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 The patient is at least clinical prognostic stage II for HPV positive head and neck cancer (T3, N1, MX). She is anatomic stage IV (T3, N2, Mx) by AJCC UICC 2017. 1. Squamous cell ca of BOT- It has been proposed by Dr. Goode the patient begin definitive concomitant chemotherapy (cisplatin) radiation with an intent to cure. PET/CT was obtained this am. The patient has been thoroughly educated to risks/benefits associated with chemotherapy. Specifically, she has been educated to potential side effects, recommendations for symptom management, and circumstances in which she should contact provider immediately, such as the development of any signs/symptoms of infection inclusive of temperature > 100.4. Encouraged to go directly to ED should fever occur outside normal clinic hours. She has been provided written educational information and after hours contact information and prescriptions for prn antiemetics/EMLA cream. Greater than 50% of this one hour visit was spent in counseling and a significant amount of time was allotted for questions. All the patient's concerns were addressed to her satisfaction and she is agreeable to proceed. Port placement is scheduled for 10/18/17, CT simulation 10/15/17. RTC 10/17/17 as previously planned to review PET/CT results with Dr. Goode. Will assign date to commence treatment at that time. Bette Luevano, MSN, CUSTOMER AGENT, AOCNP Medications: Prescriptions This Visit Medication Instructions Recorded Levothyroxine [Synthroid] 50 mcg PO DAILY 10/07/17 Varenicline [Chantix] 1 mg PO DAILY 10/07/17 Primary Care Provider: Felisa Abbott Referring Provider: Gloria Goode MD - Problem List (1) Tongue cancer Status: Acute Comment: HPV + (2) Educational circumstance Status: Acute 10/14/17 1612 <Electronically signed by Bette JOSEPHC> Date Bette JOSEPHC Cosigner Signature: Date (if applicable) CC: SURGERY VISIT REPORT Observed: 10/14/2017 Status: F Source: [place] 9:55 AM [facility] REPOSITORY [facility] [address] [place], [place] [address] OFFICE VISIT Date of Service: 10/14/17 MR#: [id number] Acct: [id number] Name: FCO GARNETT Rep #: [id number] : 1970 Provider: Judd Concepcion MD Age/Sex: 46/F Location: [facility] Status: Signed Intake Vital Signs10/14/17 Height 5 ft 2 in 10/14/17 Weight: 187 lb Intake Visit Reasons: port placement Chief Complaint: Neck mass Signwriter Required: No Is patient in pain?: No Allergies No Known Allergies Allergy (Verified 10/14/17 09:12) Medications Levothyroxine [Synthroid] 50 mcg PO DAILY 10/07/17 [History Confirmed 10/14/17] Varenicline [Chantix] 1 mg PO DAILY 10/07/17 [History Confirmed 10/14/17] PFSH Medical History peg tube (Acute) Cancer of base of tongue (Acute) IBS (irritable bowel syndrome) (Acute) Thyroid disease (Acute) Surgical History History of cholecystectomy (Acute) History of hysterectomy (Acute) history PEG tube placement (Acute) Family History Father Lung cancer Diabetes Mother Diabetes Social History Smoking Status: Former smoker HPI HPI HPI: FCO GARNETT, is a 46 F who presents to the office today for need for vascular port. She has a base of tongue cancer which was diagnosed with triple endoscopy and she had a feeding tube placed. She also has a right neck mass. She is sent here for port placement for chemotherapy. ROS General General: Yes fatigue; no weight change, appetite, colon cancer, breast cancer or weakness HEENT HEENT: Yes swollen glands; no difficulty swallowing, eye injury, eye surgery or hoarseness Endo Endocrine: Yes thyroid disease; no diabetes mellitus, thyroid cancer, Hair loss, heat intolerance or cold intolerance Skin Skin: No rash or changing moles Breast Breast: No left breast lump, right breast lump, nipple discharge, breast pain, abnormal mammogram, abnormal US or breast enlargement Musc Musculoskeletal: No back problems, arthritis, rheumatoid arthritis, gout or joint pain Cardio Cardiovascular: No murmur, pacemaker, heart disease, atrial fibrillation, high blood pressure, heart attack, heart stent, palpitations, shortness of breat with exertion or chest pain Psych Psychiatric: No depression, anxiety or hearing voices Resp Respiratory: No shortness of breath, No sleep apnea, No cough, No COPD, No asthma, No emphysema, No wheezing Gastro Gastrointestinal: No abdominal pain, No nausea or vomiting, No diarrhea, No constipation, No blood in stool, No acid reflux, No hemorrhoids, No ulcers, No gallbladder problem, No black,tarry stools Leonid Hematologic: No blood thinners, No blood disorders, No bleeding, No anemia, No blood clots Neuro Neurologic: No system reviewed and no additional complaints, except as docu, No as per HPI, No abnormal walking, No abnormal hearing, No abnormal movements, No abnormal speech, No behavioral changes, No burning sensations, No confusion, No seizure-like activity, No unsteadiness, No dizziness, No localized weakness, No frequent falls, No headache(s), No lack of coordination, No loss of vision, No memory loss, No numbness, No other visual disturbances, No radiating pain, No restless legs, No sensory deficit, No fainting, No tingling, No tremor(s), No weakness, No other Exam Const General: cooperative Orientation: alert, oriented x3 Neck Neck mass: Yes Other: Patient is a firm right neck mass. Chest Chest palpation AND inspection: normal inspection of the chest Breast Palpation: No nipple discharge Resp Effort AND Inspection: normal respiratory effort Cardio Rate: regular rate Rhythm: regular rhythm Heart Sounds: no murmurs GI Inspection: non-distended Palpation: soft, nontender Assessment AND Plan Problems 1. Tongue cancer C02.9 HPV + 2. Encounter for insertion of venous access port Z45.2 Plan 1. I discussed chest port placement with the patient in detail. I discussed the risks including but not limited to bleeding, infection, pneumothorax. I discussed the risks of indwelling catheter such as DVT and line infection. The patient understood all the risks and is willing to proceed. I recommend left chest placement due to the right neck mass. I will get her scheduled for left chest port placement as soon as possible. Judd Concepcion MD Pager: [facility] [address] [place] [address], [address] [place] [address] Office: Coding Level of Care Code Off vis,new,level 3 Diagnoses Tongue cancer C02.9 Encounter for insertion of venous access port Z45.2 10/14/17 0955 <Electronically signed by Judd Concepcion MD> Date Judd Concepcion MD Cosigner Signature: Date (if applicable) CC: Felisa Abbott; Gloria Goode MD CBC W/DIFF, AUTOMATED Collected: 10/14/2017 Status: F Source: [place] 9:25 AM [facility] REPOSITORY TYPE CODE TESTS RESULT OUT OF RANGE REFERENCE UNITS LAB L100.1000 4.4-11.0 K/mm3 Normal WBC 6.9 LAB L100.1200 4.2-5.4 M/mm3 Normal RBC 4.59 LAB L100.1300 12.0-15.0 g/dl Normal HGB 14.3 LAB L100.1400 37-47 % Normal HCT 43.3 LAB L100.1500 81-99 fL Normal MCV 94.3 LAB L100.1600 27.0-32.0 pg Normal MCH 31.2 LAB L100.1700 32-36 g/gl Normal MCHC 33.0 LAB L100.1810 11.6-14.6 % Normal RDW CV 13.2 LAB L100.1820 35.1-43.9 fl High RDW SD 45.3 LAB L100.1900 150-450 K/mm3 Normal PLT 332 LAB L100.2000 6.2-12.0 fl Normal MPV 9.9 LAB L100.2100 47-70 % Normal NEUT% 67.6 LAB L100.2200 19-41 % Normal LY% 21.9 LAB L100.2300 0-10 % Normal MONO% 5.8 LAB L100.2400 0-5 % Normal EO% 4.2 LAB L100.2500 0-1 % Normal BASO% 0.4 LAB L100.2550 0.0-0.9 % Normal IM GRAN % 0.100 Result Comment: IG% - Immature Granulocytes (promyelocytes, myelocytes and metamyelocytes) > 1% indicates that a LEFT SHIFT is Present. LAB L100.2620 2.0-7.7 X10 3/uL Normal Absolute Neut 4.6 LAB L100.2720 0.83-4.51 X10 3/ul Normal Absolute Lymph 1.50 Performed By: #### L100.0100 #### [facility] [address] [place], [address] COMPREHENSIVE METABOLIC Collected: 10/14/2017 Status: F Source: [facility] 9:25 AM [facility] REPOSITORY Order Comment: Reason for Laboratory Test . TYPE CODE TESTS RESULT OUT OF RANGE REFERENCE UNITS LAB L501.0100 74-106 mg/dL Normal GLU 92 Result Comment: Please note revised GLUCOSE reference range effective 2017. LAB L501.1000 7-18 mg/dL Normal BUN 14 LAB L501.1100 0.55-1.02 mg/dL Normal CREAT,SERUM 0.64 Result Comment: The validity of the calculated GFR AND GFRAA in patients over 70 years has not been determined. Clinical correlation is essential. LAB L501.1110 >60 mL/min Normal EST GFR 105 Result Comment: Non- GFR Calc LAB L501.1115 >60 mL/min Normal EST GFR - AA 127 Result Comment: GFR Calc LAB L501.1255 ml/min Normal Estimated CRCL 86.87 LAB L501.1300 10-20 RATIO High BUN/CRE 21.7 LAB L501.1500 6.4-8. g/dL Normal 2 T PROT 7.7 LAB L501.1800 3.2-5. g/dL Normal 0 ALB 3.5 LAB L501.1950 2.2-4. g/dL Normal 2 GLOB 4.2 LAB L501.2000 0.9-2. RATIO Low 4 A/G 0.8 LAB L501.2200 8.5-10 mg/dL Normal .1 CA 9.0 LAB L501.4100 15-37 U/L Normal AST 33 LAB L501.4305 45-117 U/L High ALK P 158 LAB L501.4405 13-56 U/L High ALT 57 LAB L501.4600 0.20-1 mg/dL Normal .00 T BILI 0.40 LAB L501.5300 136-14 mmol/L Normal 5 NA 138 LAB L501.5600 3.5-5. mmol/L Normal 1 K 4.1 LAB L501.5900 98-107 mmol/L Normal CL 103 LAB L501.6100 21.0-3 mmol/L Normal 2.0 CO2 26.0 LAB L501.6200 5-15 Normal GAP 9 Performed By: #### L500.4050 #### [facility] [address] [address] [place], [place], [address] PET/CT TUMOR BASE Observed: 10/14/2017 Status: F Source: [place] [facility] 5:43 AM [facility] REPOSITORY [facility] Imaging Services [address] [place] [address] PET/CT Tumor Base -Thigh Init MR#: [id number] Acct: [id number] Name: FCO GARNETT Rep #: [id number] : 1970 F 46 From: Pedro Luis Carrizales DO PCP: Felisa Abbott Status: REG CLI Study: PET/CT Tumor Base -Thigh Init Date of Exam: 10/14/17 Exam# [id number] Ordering Dr: Gloria Goode MD EXAMINATION: FDG PET CT INDICATIONS: A 46-year-old female with reported history of head and neck carcinoma presenting for initial staging examination. COMPARISON EXAMINATION: None available. INDEX LESION SIZE SUV INTERPRETATION Posterior aspect oral cavity, pharyngeal mucosal space-hypopharynx 43.3 mm x 22.1 (frame 280) 9.1 Fulfills quantitative criteria for viable neoplasm Right lateral neck level II A-II B 29.9 mm largest (frame 281) 5.3 (max) Fulfills quantitative criteria for viable neoplasm TECHNIQUE: Following the intravenous administration of 16.9 mCi of F-18 deoxyglucose via the right antecubital fossa, multiplanar image acquisitions of the neck, chest, abdomen and pelvis to level of mid thigh, obtained at one hour post radiopharmaceutical administration contemporaneously interpreted with the current CT of the neck, chest, abdomen and pelvis to level of mid thigh, dated 10/14/17 via coregistration reveal: SERUM GLUCOSE LEVEL: 89 mg/dl. HEIGHT: 62 inches. WEIGHT: 187 lbs. FINDINGS: 1. Increased glucose metabolism is defined in the oral cavity contiguous to the tongue base, pharyngeal mucosal space extending caudal to the level of the hypopharynx, vallecula. The calculated maximum standard uptake value is 9.1. The maximal axial diameter of corresponding metabolic, morphologic abnormality on review of CT of the head and neck dated 10/14/17 is 43.3 mm (transverse) x 22.1 (AP). 2. Asymmetric increased glucose concentration is observed in the right lateral neck involving level II A-II B. The calculated maximum standard uptake value is 5.3. A component of central photopenia is noted consistent with necrotic change. The maximal axial diameter of the largest metabolic, morphologic abnormality on review of CT of the neck dated 10/14/17 is 29.9 mm (AP). 3. Normal physiologic distribution of the radiopharmaceutical is apparent in the hepatic (3.4) and splenic parenchyma, both renal units, bladder and visualized intestinal tract. There is uniform distribution of the radiopharmaceutical concentration compared on the cerebellar hemispheres and cerebral cortex. Diffuse intestinal tract activity is noted throughout all four quadrants of the abdominal-pelvic retroperitoneum, mesentery consistent with normal physiologic distribution of the radiopharmaceutical. Pertinent CT findings are as follows. CHEST: Bilateral subcentimeter axillary soft tissue densities with fatty hilus formation are non-glucose avid. There are no parenchymal densities-nodules demonstrated in the right-left hemithorax manifesting quantitatively significant increased glucose metabolism. ABDOMEN AND PELVIS: The gallbladder is surgically absent. Right-left inguinal soft tissue densities with fatty hilus formation are ametabolic. The uterus appears surgically absent. Colonic diverticulosis is defined. SKELETAL: Degenerative changes defined in the cervical, thoracic and lumbar spine demonstrate no evidence for glucose hypermetabolism. PET/PET/CT Tumor Base -Thigh Init IMPRESSION: 1. ABNORMAL EXAMINATION INDICATIVE OF MALIGNANT VIABLE NEOPLASM. 2. Increased glucose concentration defined in the posterior aspect of the oral cavity, the pharyngeal mucosal space, tongue base extending to the hypopharynx fulfills quantitative criteria for viable neoplasm. 3. Enhanced glucose concentration observed in the right lateral neck fulfills quantitative criteria for viable neoplasm. 4. No other quantitatively significant hypermetabolic abnormalities are noted. There is no definitive scintigraphic evidence of distant metastatic disease. Electronic Signature Pedro Luis Carrizales D.O. Electronically Signed: ePdro Luis Carrizales DO at 23:17 EDT Tel , Service support , CC: Felisa Abbott; Gloria Goode MD Offal Trimmer: Signed [facility] Observed: 10/14/2017 Status: F Source: [facility] 12:00 AM [facility] Pathologist: KATYA DENT MD Date of Procedure: 10/14/2017 Date Received: 10/14/2017 Date Reported: 10/15/2017 Submitting Physician: GLENROY GAITAN SR., M.D. Location: [facility] FINAL DIAGNOSIS [facility], [id number] (09/23/2017): RIGHT BASE OF TONGUE MASS, BIOPSY: -- INVASIVE NONKERATINIZING SQUAMOUS CELL CARCINOMA, SEE NOTE. Note: A submitted immunostain for p16 is diffusely positive in the carcinoma. Submitted immunostains for pankeratin, CK 5/6, p63, CK 7, and bcl-2 are positive in the carcinoma. Nonnecrotizing granulomatous inflammation is associated with the invasive carcinoma. Slides reviewed at the Lung/ENT Case Review Conference with Dr. Lester Durán and Dr. Vance Garrett on 10/15/2017. jkw Electronically Signed Out By KATYA DENT MD/KENNY By the signature on this report, the individual or group listed as making the Final Interpretation/Diagnosis certifies that they have reviewed this case. Clinical History: {Not Provided} Specimens Submitted As: A: [facility] [id number] (09/23/2017) Slide/Block Description Received from [facility], Dept of Pathology, [address] [place] [address], [id number], are fourteen (14) slides labeled [id number] and 1 block labeled [id number]. Keep Slides: N Slides Returned: N Personal Consult: N Performed By: #### [facility] #### [facility] Surgical Pathology Department [address] [facility] [address] TUMOR BOARD NOTE-HEAD Observed: 10/11/2017 Status: UNK Source: [facility] 12:41 PM [facility]OSPITALS REPOSITORY Note: Tumor Board Note FCO GARNETT was presented at Head and Neck Tumor Board Conference on 11-Oct-[address] Magalie Mattson. Impression: Presented with right neck and base of tongue lesion, asymptomatic, biopsy revealing squamous cell carcinoma, p16 positive, T3 N2 M0. Recommendations: Chemoradiation. Disclaimer SCC tumor board recommendations represent the consensus opinion of physicians present at a weekly patient care conference. The treating SCC physician is not always present, and many of the physicians formulating the recommendation have not personally seen or examined the patient under discussion. It is understood that the treating SCC physician considers the expertise of the Tumor Board Recommendation in formulating his/her plan for the patient. However, in many situations, based on individualized patient considerations, a different plan is determined by the treating physician to be the optimal medical management. Electronic Signatures: Hill Horton (N MGR) (Signed 11-Oct-2017 12:46) Authored: Tumor Board, Disclaimer Last Updated: 11-Oct-2017 12:46 by Hill Horton (N MGR) CONSULTATION Observed: 10/10/2017 Status: F Source: [place] 4:56 PM [facility] REPOSITORY [facility] Medical Records Department [address] [place] [address] Consultation 10/10/17 1623 MR#: [id number] Acct: [id number] Name: FCO GARNETT Rep #: [id number] : 1970 46 From: Pierce Pascal DO PCP: Felisa Abbott Status: REG RCR Y Location: [facility] Date of Service: 10/10/17 Referring Provider: Dr. Goode Diagnosis: Fco Garnett is a diagnosed with AJCC seventh edition stage DAVID (cT2-3N2bMx), AJCC eighth edition Stage II (cT2-3N1Mx), 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 History of Present Illness: 09/12/2017: Patient underwent CT of the neck with contrast which demonstrated necrotic adenopathy within the right neck specifically at level 3 there is a lymph node measuring 39 x 29 x 26 mm, right neck level 5 lymph node measuring 14 x 18 mm. There is also identified a mass involving the lingual tonsil and extending into the right AE fold measuring about 28 x 36 x 36 mm. 09/16/2017: Patient was evaluated by [facility] for a firm and moderately tender right anterior neck mass ongoing for several weeks. On exam there was noted to be a large mass involving the right greater than left base of tongue down to the vallecula, but unable to complete mirror exam to further evaluate extent due to hyperactive gag reflex. FNA of the neck mass was completed but I do not have those results to review. 09/23/2017: Patient underwent direct laryngoscopy with biopsy. Pathology demonstrated evidence for invasive moderately differentiated squamous cell carcinoma, p16 positive. 10/02/2017: Patient was evaluated by ENT at [facility] on exam the patient was noted to be edentulous, there is a firmness across the entire base of tongue right greater than left, a right pathologically enlarged lymph node which is tender to palpation measures about 4 cm. NPL was performed which showed the mass involving the right base of tongue which extends down into the vallecula and approaches the larynx but does not involve the false vocal cord or true vocal cord, this mass does appear to cross midline but there were no masses or lesions visualized at the epiglottis, AE folds, piriform sinuses, or lateral pharyngeal clement. 10/04/2017: Patient had PEG tube placed. Radiation Treatment History: Patient denies any history of previous radiation therapy. She denies having any diagnosis of collagen vascular disease and also denies having a pacemaker. Interval History: Patient reports that she initially presented with a small nodule involving the right neck which began initially August 22 and then swelled up over the course of a few days and has then remained stable. She reports mild discomfort associated with this right neck mass denies having any skin changes. She has had about a 10-15 pound weight decrease but reports having a normal appetite and is eating regular food without difficulty. She denies having dysphasia, odynophagia, coughing or choking with swallowing, taste change, dry mouth, otalgia, hoarseness, cough, shortness of breath, hemoptysis, or areas of pain. She denies having any changes to vision, hearing, cognition. She denies having any nausea/vomiting or diarrhea/constipation. She can complete all activities of daily living without any difficulty. She denies having any difficulty with her PEG tube but has not attempted to use it yet. She reports that she has had all of her teeth removed. Family History (Last Reviewed 10/10/17 @ 12:57 by Mary Lou Gonzales RN) Father Lung cancer Diabetes Mother Diabetes Medical History (Last Reviewed 10/10/17 @ 12:56 by Mary Lou Gonzales RN) peg tube (Acute) 10-04-17 Cancer of base of tongue (Acute) IBS (irritable bowel syndrome) (Acute) Surgical History (Last Reviewed 10/10/17 @ 12:56 by Mary Lou Gonzales RN) History of cholecystectomy (Acute) History of hysterectomy (Acute) Social History - Tobacco Smoking Status Former smoker Smokeless tobacco usage: Never Years used: 25 Passive smoke exposure: Yes Social History - Substance Drug use: No Caffeine use [drinks/day]: 4 Alcohol use: Yes Type of alcohol: OCCASIONAL - WHISKEY Social History - Living Arrangements Patients Living Arrangements With Significant Other Home Medications Medication Instructions Recorded Levothyroxine [Synthroid] 50 mcg PO DAILY 10/07/17 Varenicline [Chantix] 1 mg PO DAILY 10/07/17 Allergies No Known Allergies Allergy (Verified 10/10/17 12:54) Health Maintenance Do you regularly see your Yes primary care physician? Have you ever had a Yes colonoscopy? Date of last colonoscopy: 05/27/08 I have reviewed the medical, surgical, and other pertinent history in details and have updated medication and allergy information in the electronic medical record. Review of Systems: A 12-point review of systems was completed and was negative except for what is noted in the HPI/Interval History and by the nurse. Height/Weight/BMI: Height: 5 ft 2 in Weight: 85.185 kg BMI: 34.3 Vital Signs Temperature 97.9 F 10/10/17 12:55 Temperature Source Oral 10/10/17 12:55 Physical Exam: ECO KARNOFSKY SCORE: 90% CONSTITUTIONAL: Well-developed, well-nourished, and in no apparent distress. HEENT: Mucous membranes moist. Edentulous. No evidence of thrush or lesions within the visualized oropharynx or oral cavity, bilateral tonsils are unremarkable. No trismus. On palpation there is a firm base of tongue mass on the right greater than left, exam was difficult due to hyperactive gag reflex. Pupils are equal, round, and reactive to light and accommodation. Extraocular movements are intact. Sclerae are anicteric. NECK: Supple,with no thyromegaly. Trachea midline. There is a 3-4 cm right level 3 lymph node which is firm but appears mobile, no skin erythema or evidence for skin involvement. No other abnormal lymph nodes are appreciated within the bilateral cervical or supraclavicular regions. CARDIAC: Regular rate and rhythm. Normal S1, S2. No murmurs, rubs, or gallops. PULMONARY/CHEST: Lungs are clear to auscultation and percussion bilaterally. No wheezes, rhonchi, or crackles noted. No increased work of breathing. ABDOMINAL: Abdomen soft, non-tender, non-distended. No hepatomegaly. Normoactive bowel sounds in all four quadrants. No guarding, rebound. BACK: Straight and aligned. No CVA tenderness. Axial skeleton non-tender to percussion. EXTREMITIES: Full range of motion in all four extremities, with normal strength equally and symmetrically. No evidence of edema. No clubbing. NEUROLOGICAL EXAM: Alert and oriented x 3. Cranial nerves II through XII are grossly intact. Imaging: As per HPI We have requested the outside imaging but have not yet been able to review the CT neck. PET scan will be completed on 10/14/2017. 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 Plan: I had a detailed discussion with the patient regarding the diagnosis of locally advanced oropharyngeal squamous cell carcinoma. I explained that her disease appears to be p16 positive which is a surrogate for HPV positive disease and I explained that generally this improves response to therapy and disease outcome, but that she is also a smoker which has been shown to negatively affect outcome placing her in the intermediate risk group. Furthermore, I discussed the need to acquire a PET scan for definitive staging as this can point out occult metastatic disease and also would assist greatly with treatment planning, for discussion it appears that she does not have metastatic disease so I discussed definitive therapy. I explained to her that definitive chemoradiation therapy consisting of concurrent cisplatin would be considered standard of care for locally advanced oropharyngeal cancers given that surgery be particularly morbid in that there would be a need for adjuvant radiation therapy with or without chemotherapy. I discussed that the addition of chemotherapy to radiation therapy has been shown to improve overall survival and that in my view cisplatin would be the ideal choice. She has already been evaluated by medical oncology and appears to be good candidate for concurrent cisplatin therapy. I discussed that there is data evaluating the dose reduction in patients who have HPV positive disease but that until phase 3 proves not inferiority of this approach I would still recommend standard dose radiation. Patient is edentulous. I discussed the logistics of external beam radiation therapy including simulation for radiation therapy planning followed by daily treatment for approximately 7 weeks. The side effects of radiation therapy, including but not limited to, acute side effects in the form of skin reactions (redness or darkening or desquamation), irritation/sores in the mouth and throat causing pain while swallowing, loss of facial hair, hoarseness, dryness of mouth, loss of taste sensation and late side effects in the form of persistent dryness of the mouth, loss of taste sensation, fibrosis/ thickening of the skin in the treated area, decrease in jaw mobility, damage to neck blood vessels, damage to brachial plexus, radionecrosis, dental complications, difficulty healing after future surgery, hearing decrease and rare chance of spinal cord damage, were also explained to the patient. She has already had a PEG tube placed but is not had to use it as her eating is completely normal. I discussed that she should continue swallowing as normal for as long as possible and use the PEG only for weight loss when PO intake becomes too difficult. She was advised to use salt/ soda water gargles during 5-6 times a day during RT, do jaw stretching exercises, avoid use of creams or lotions on the face and neck and avoid shaving. She was informed to refrain from smoking and alcohol use during therapy. She quit smoking about 2 weeks ago and is using Chantix for help, she reports doing very well with this. I discussed the importance of coming for all treatments without missing any doses for the efficacy of the radiation therapy. After discussing the benefits, risks, and alternatives to radiation therapy the patient elected to pursue the recommended treatment of chemoradiation and informed consent was obtained. She is tentatively scheduled for CT simulation on 10/15/2017. Thank you for allowing me to participate in the management and care of your patient. If I may answer any questions in the interim, please do not hesitate to contact me at any time. Pierce Pascal DO, MS Security Incident Handler, Department of Radiation Oncology [facility] 10/10/17 0451 <Electronically signed by Pierce Pascal DO> Date Pierce Pascal DO Cosigner Signature (if applicable): Date CC: Felisa Abbott; Gloria Goode MD Signed ONCOLOGY HISTORY AND Observed: 10/08/2017 Status: F Source: [place] PHYSICAL 10:30 AM [facility] REPOSITORY [facility] Medical Records Department [address] [place] [address] History and Physical 10/08/17 1008 MR#: [id number] Acct: [id number] Name: FCO GARNETT Rep #: [id number] : 1970 46 From: Gloria Goode MD PCP: Felisa Abbott Status: REG RCR Y Location: OMD - Problem List (1) Tongue cancer Status: Acute Comment: HPV + (2) Regional lymph node metastasis present Status: Acute Subjective Date of Service:: 10/08/17 Chief Complaint: Neck mass History of Present Illness: Patient is a 46-year-old female, smoker till September 2017 who presented with a painless enlarging right neck mass since July 2017. Was seen by Dr. 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 CAT scan of the neck in August 2017 confirmed the mass measuring up to 3.6 cm in maximum diameter with right neck necrotic adenopathy measuring up to 3.9 cm in maximum diameter. At least 3 pathologic nodes identified on imaging. The mass was felt to cross the midline and involve the right lingual tonsil and the right aryepiglottic fold. Patient has lost only a few pounds of weight only recently and a feeding tube was placed by Dr. Mattson and she was referred for definitive chemoradiation. Patient elected to come to [facility] close to home. Health History: Past Medical History Cancer: Oral cancer Past Medical History (Last Updated 10/08/17 @ 09:41 by Belle Leung) peg tube (Acute) Cancer of base of tongue (Acute) IBS (irritable bowel syndrome) (Acute) Past Surgical History (Last Reviewed 10/08/17 @ 09:25 by Belle Leung) History of cholecystectomy (Acute) History of hysterectomy (Acute) Family History (Last Updated 10/08/17 @ 09:26 by Belle Leung) Father Lung cancer Diabetes Mother Diabetes Allergies/Adverse Reactions: Allergy/AdvReac Type Severity Reaction Status Date / Time No Known Allergies Allergy Verified 10/08/17 09:26 Home Medications Medication Instructions Recorded Levothyroxine [Synthroid] 50 mcg PO DAILY 10/07/17 Varenicline [Chantix] 1 mg PO DAILY 10/07/17 Risk Factors Social History Social History: No changes Smoking Status Former smoker Tobacco Risk Data: Tobacco Risk Smoking Status Former smoker Type of tobacco: Smokeless tobacco usage: Never Items/Day: Year started: Years used: 25 Counseled to quit/cut down: Reason for no counseling performed: Reason for no pharmacotherapy: Tobacco use comments: Passive smoke exposure: Yes Substance Risk Drug use: No Caffeine use [drinks/day]: 4 Alcohol use: Yes Type of alcohol: OCCASIONAL - WHISKEY Drinks per day: Has patient felt the need to cut down: Has the patient been annoyed by complaints: Has the patient felt guilty about drinking: Has the patient needed an eye qa software test engineer in the mornings: Comments: Date of last colonoscopy:: 05/27/08 Date of last mammogram:: 09/27/17 Review of Systems Constitutional:: Reports: Weight loss - A few pounds only recently. Denies: Fever, Sweats, Appetite change, Chills Cardiovascular:: Reports: Dyspnea on exertion. Denies: Chest pain, Palpitations, Orthopnea, PND, Shortness of breath Respiratory: Reports: Shortness of breath upon exertion. Denies: Cough, Hemoptysis, Shortness of Breath, Wheezing Gastrointestinal:: Reports: Constipation - Chronic. Denies: Abdominal pain, Nausea, Vomiting, Diarrhea, Hematochezia Genitourinary: Denies: Dysuria, Hematuria, 15, Flank pain Musculoskeletal:: Denies: Back pain, Myalgia, Arthralgia Skin: Denies: Rash, Skin Changes, Wounds Neurological:: Denies: Headache, Dizziness, Visual changes, Tinnitus, Hearing loss Psychiatric: Denies: Anxiety, Depression, Homicidal Ideations, Suicidal Ideations Comment: Has no teeth Vital Signs Height 5 ft 4 in Weight: 85.275 kg Weight in Pounds 188.0 lbs Pulse Ox 95 - Physical Exam General: Alert, Oriented x3, No apparent distress, - - ECOG 1 HEENT: Atraumatic, PERRLA, EOMI, Normocephalic, - - No teeth Oropharynx:: Dry mucosa Neck:: Supple, Trachea midline. Negative for: JVD, bilateral Cardiac:: Regular rate, Regular rhythm, Normal S1, Normal S2. Negative for: Murmur Lungs: Clear to auscultation, Diminished, Excusion symmetrical. Negative for: Rhonchi, Wheezes Abdomen:: Soft, Non-tender, Non-distended, - - PEG tube. Negative for: Hepatosplenomegaly Extremities:: Negative for: Cyanosis, Edema Neurological: Neuro grossly intact Skin:: Negative for: Lesions, Rash, Petechiae, Ecchymosis Psychiatric:: Appropriate affect, Euthymic Lymphatics:: Cervical lymphadenopathy - Right neck 5 cm lymph node mass. Negative for: Supraclavicular lymphadenopathy, Axillary lymphadenopathy Laboratory Data: Outside labs October 02, 2017 CBC and a basic metabolic panel unremarkable Diagnostic Data: CT neck report reviewed, images requested Pathology Data: Pathology report reviewed summarized under HPI Assessment and Plan 46-year-old female smoker (till September 2017) with HPV positive squamous cell cancer of the base of the tongue with metastases to right neck lymph nodes. The patient is at least clinical prognostic stage II for HPV positive head and neck cancer (T3, N1, MX). She is anatomic stage IV (T3, N2, Mx) by AJCC UICC 2017. I reviewed the most recent NCC and guidelines and advice definitive concomitant chemotherapy (cisplatin) radiation was an intent to cure. This approach has been shown to improve overall survival and decrease the risk of compared to radiation therapy alone ( [place]-analysis of chemotherapy in head and neck cancer (MACH-NC): a comprehensive analysis by tumour site. Herson P, Ashli B, Milan V, Richie A, Tash C, Willian J, Yusef ERMELINDA, [facility]- Collaborative group Radiother Oncol. 2011;100(1):33. Plan: 1 radiation oncology consultation. 2 central venous access for chemotherapy and supportive hydration. 3 nutrition consult 4 chemo teaching session 5 complete staging with PET/CT 6 we will follow-up after the above. Medications: Prescriptions This Visit Medication Instructions Recorded Levothyroxine [Synthroid] 50 mcg PO DAILY 10/07/17 Varenicline [Chantix] 1 mg PO DAILY 10/07/17 Primary Care Provider: Felisa Abbott Referring Provider: Gloria Goode MD 10/08/17 1030 <Electronically signed by Gloria Goode MD> Date Gloria Goode MD Cosigner Signature: Date (if applicable) CC: Felisa Abbott; magalie mattson; Gloria Goode MD Signed CT THORAX W/ CONTRAST Observed: 10/07/2017 Status: F Source: [place] 7:27 AM [facility] REPOSITORY Exam Date/Time: 10/07/2017 07:45 EDT Reason for Exam: MALIGNANT NEOPLASM OF BASE OF TONGUE Report EXAM: CT THORAX WITH CONTRAST CLINICAL STATEMENT: Carcinoma base of tongue. COMPARISON: CT soft tissue neck of 09/12/2017. TECHNIQUE: CT examination of the chest?following the administration of 75 mL Omnipaque 300 at 3 mL/s. ?Coronal and sagittal reformations were performed. Dose reduction techniques were achieved by using automated exposure control and/or adjustment of mA and/or kV according to patient size and/or use of iterative reconstruction technique. FINDINGS: No pulmonary parenchymal metastatic nodules are seen. Both lungs are well expanded. There are however areas of platelike atelectasis, in both lower lobes more on the left side in the superior segment as well as in the superior segment of the right lower lobe laterally. No pleural effusion is seen. There are bilateral small axillary lymph nodes present, which have a normal fatty hilum. No enlarged axillary lymph nodes are seen. Small pretracheal lymph nodes are seen, which are of normal shape and also contain fat. No mediastinal lymphadenopathy is present. The caliber of the aorta and pulmonary arteries is normal. No calcification is seen in the coronary arteries. No pericardial thickening is present. A gastrostomy tube is noted. There is considerable pneumoperitoneum. This is likely related to the gastrostomy. Clinical followup is recommended. The right lobe of the liver is fatty compared to the left. However no hepatic mass lesion is seen. The visualized bones are unremarkable, showing no lytic or blastic lesion. IMPRESSION: No evidence of pulmonary metastatic disease. Plate atelectasis lower lobes bilaterally. Exam Date/Time: 10/07/2017 07:45 EDT Report Pneumoperitoneum. Status post gastrostomy. FINAL REPORT Dictated: 10/08/2017 9:05 am Yaron Acosta MD Signed (Electronic Signature): 10/08/2017 9:05 am Signed by: Yaron Acosta MD Technologist: DANIEL POST OPERATIVE NOTE - Observed: 10/04/2017 Status: COMPLETED Source: [place] 11:26 AM HOSPITALS REPOSITORY Post Operative Note: PreOp Diagnosis: Base of tongue CA Post-Procedure Diagnosis: same and dysphagia Procedure: EGD/PEG Surgeon: Víctor Resident/Fellow/Other Formal Service Waiter: ENT resident Anesthesia: Gen Estimated Blood Loss (mL): none Specimen: no Complications: none Findings: normal esophagus/stomach Operative Report Dictated: Dictation: yes Date of Dictation: 04-Oct-2017 Dictation job number: [id number] Signature/Cosignature/Attestation: Attending Attestation I was present for the entire procedure Electronic Signatures: Pierre Renee) (Signed 04-Oct-2017 11:27) Authored: Post Operative Note, Signature/Cosignature/Attestation Last Updated: 04-Oct-2017 11:27 by Pierre Renee) POST OPERATIVE NOTE - Observed: 10/04/2017 Status: COMPLETED Source: [place] 9:21 AM HOSPITALS REPOSITORY Post Operative Note: Post-Procedure Diagnosis: Base of tongue mass Procedure: Direct laryngoscopy and biopsy, bronchoscopy, esophagoscopy Surgeon: Dr. Mattson Resident/Fellow/Other Formal Service Waiter: Lester Kulkarni Estimated Blood Loss (mL): 5 cc Specimen: yes Findings: 6 cm, exophytic, nodular lesion involving R base of tongue, epiglottis, crossing midline. No involvement of pharyngeal wall or pyriform Additional Details: PEG also done by general surgery Signature/Cosignature/Attestation: Attending Attestation I was present for leigh portions of the procedure and the procedure lasted longer than 5 minutes. Electronic Signatures: Magalie Mattson MD (Otolaryngology) ALEX) (Signed 08-Oct-2017 21:47) Authored: Post Operative Note, Signature/Cosignature/Attestation Co-Signer: Post Operative Note, Signature/Cosignature/Attestation Lester Conley (Resident)) (Signed 04-Oct-2017 09:24) Authored: Post Operative Note, Signature/Cosignature/Attestation Last Updated: 08-Oct-2017 21:47 by Magalie Mattosn MD (Otolaryngology) ALEX) PREOP CHECKLIST Observed: 10/04/2017 Status: UNK Source: [facility] 6:37 AM HOSPITALS REPOSITORY Preop Checklist: Preop Checklist: ? Arrival Date 04-Oct-2017 ? Arrival Time 06:17 ? Procedure Type DL, Bronch, Esophagoscopy, PEG ? NPO Status 03-Oct-2017 23:59 ? ID Band On yes ? Allergy Band no known allergies ? SCD's Applied yes Cardiovascular Assessment: ? Apical regular ? Radial Pulses palpable ? Pedal Pulses palpable ? Extremities warm Respiratory Assessment: ? Respirations unlabored regular ? Air Exchange equal, good ? Breath Sounds clear Neurological Assessment: ? Level of Consciousness alert, oriented ? Mobility moves all extremities ? Able to Express Self yes ? Age Appropriate yes ? Emotional Status calm Preop Education: ? Surgical Site Infection Prevention yes ? Pain Scales and Management yes Language / Communication: ? Language / Communication Croatian Electronic Signatures: Yessica Gonzalez (RN) (Signed 04-Oct-2017 06:39) Authored: Preop Checklist Last Updated: 04-Oct-2017 06:39 by Yessica Gonzalez (SANDRA) PATIENT PROFILE - Observed: 10/04/2017 Status: UNK Source: [place] [facility]2 6:22 AM HOSPITALS REPOSITORY Profile: Initial Info: How to be Addressed Fco Spoken Language Preferred Croatian Source of Information patient Are you currently using the Personal Electronic Health Record or [email or web address] yes Stated Reason for Admission Biopsy Primary Contact Name and Number Ricky roberts phone # in her cell Limitations on Visitors/Phone Calls none Patient Belongings none Medications Brought to Hospital no General Health: Weight in kg 86.2 kilogram(s) Weight in lbs 190 pound(s) Weight Method actual (measured) Scale Type standing Height in cm 157.4 centimeter(s) Height in feet 5 feet Height in inches 2 inch(es) Height Method stated BMI (kg/m2) 34.793 square meter Patient or Family Member Reaction to Anesthesia patient reaction Patient Reaction to Anesthesia nausea and vomiting Blood Avoidance/Restrictions none Previous Transfusion Reaction no Health Mgmt: Symptoms/Conditions Managed at Home endocrine; Hypothyroid; behavioral health Are You Currently no Behavioral Health Symptoms/Conditions smoker Behavioral Management Strategies medication therapy Endocrine Management Strategies medication therapy Are You no Barriers to Managing Health none Endocrine Symptoms/Conditions thyroid disease Relationship/Environ: Lives With significant other Living Arrangements apartment Resource/Environmental Concerns none Anticipated Transition To home Services Anticipated at Transition none Substance: Current or Former Substance Use never: Street Drugs YES: Cigarette/Tobacco, Alcohol Tobacco Cessation Education (provide if tobacco use within the last 12 mos) yes Other Tobacco Use Comments 1 ppd X 20+ years none since 09/27/17 Alcohol Use Status current alcohol Alcohol Frequency monthly or less Risk Screens: Advance Directive Medical no Advance Directive Information Given patient/family declined Advance Directive Mental Health not applicable During the past month, have you often been bothered by feeling down, depressed or hopeless? no During the past month, have you often had little interest or pleasure in doing things? no Have you had any thoughts of harming yourself? no Have you had any thoughts of harming anyone else? no Patient is Able to be Assessed for Learning yes Factors Influencing Readiness to Learn acuteness of illness Factors that Impact Ability to Learn none Devices/Methods Used to Communicate none Learning Preferences individual instruction Cultural Considerations none Developmental Considerations none Church Considerations none Other learner available no Falls Risk Patient location auto qualifies him/her for HIGH RISK. Are there any cultural, spiritual, methodist practices/values/needs that are important for us to know? no Do you want a visit/item from Pastoral Care? no Would you like your Bleach Boiler Filler/Medical Staff Specialist notified? no Pain Scale numerical 0-10 Pain Scale Education teaching provided Current Pain Level 2 = Mild Acceptable Pain Level 3 = Mild Expression of Pain (nonverbal) verbalization Lifestyle Changes/Adaptations in Response to Pain no change Barriers to Reporting Pain none Chronic Pain no Information Review: ? Allergies, Home Meds and Significant Events have been Reviewed and Verified with Patient/Family no Significant Events: 04-Oct-2017 ? Hysterectomy: Past Surgical History, Active 04-Oct-2017 ? Cholecystectomy: Past Surgical History, Active Electronic Signatures: Yessica Gonzalez (SANDRA) (Signed 04-Oct-2017 06:36) Authored: Profile, Additional Information Last Updated: 04-Oct-2017 06:36 by Yessica Gonzalez (RN) OPERATIVE REPORT Observed: 10/04/2017 Status: UNK Source: [facility] 12:00 [place] [address] Patient Name: FCO GARNETT : 1970 Date of Service: 10/04/2017 Patient Location: [place] [address] Patient Type: O Surgeon: Peirre Renee MD Report Type: Operative Reports PREOPERATIVE DIAGNOSIS: Base of tongue cancer with dysphagia. POSTOPERATIVE DIAGNOSIS: Base of tongue cancer with dysphagia. OPERATION/PROCEDURE: Upper endoscopy with 20-Senegalese percutaneous endoscopic gastrostomy tube. SURGEON: Pierre Renee MD WASH TANK TENDER(S): ENT resident. ANESTHESIA: General. HISTORY PRESENT ILLNESS AND SURGICAL INDICATIONS: The patient is a 46-year-old white female referred by Dr. Magalie Mattson of ENT. The patient was diagnosed with a base of tongue cancer with metastatic disease in the lymph nodes. They are moving forward toward concepts of surgical resection and radiation therapy. Dr. Magalie Mattson is bringing her to the operating room today for triple-endoscopy and had requested a PEG tube for long-term enteral access for this patient who already has some early dysphagia which is expected to worsen with her radiation therapy and surgery. Therefore, risks and benefits were discussed. She agreed and consent was signed. DESCRIPTION OF PROCEDURE: On the operative date, when I arrived to the operating room, the patient was already asleep under anesthetic, had received Kefzol as antibiotic and SCDs for DVT prophylaxis. We inserted an adult videoendoscope down to the esophagus and past the tumor without any difficulty. Esophagus and stomach were all normal in terms of mucosa with no other masses noted. We had a good area of external digital compression that corresponded with transillumination and light reflex on the abdominal wall. The area was prepped out sterilely. 1% lidocaine was used as local anesthetic in the skin and then, a 22-gauge needle was advanced down into the stomach. We had immediate return of air bubbles into the chamber of the needle once the needle was present and visualized in the stomach, demonstrating a safe-track technique. We made a 1 cm incision, placed an Angiocath down into the stomach, and fed a guidewire through it that was grasped with a snare through the endoscope and then the whole assembly was pulled out through the mouth. A 20-Senegalese PEG tube was attached to the guidewire and pulled back down in a retrograde fashion. The scope was reintroduced and verified good position of the PEG tube at 4 cm from the skin. Everything was hemostatic. The stomach was desufflated and the scope withdrawn. The PEG tube was then attached with a T- fastener bumper to the abdominal wall between 4 and 4.5 cm. Dry sterile dressing was placed over the top. The patient tolerated the procedure well. Dr. Magalie Mattson's team will now proceed on with the rest of the endoscopy and biopsies. Pierre Renee MD EST TT: 10/04/2017 12:35 PM EST DICTATION NUMBER: [id number] SPHERIS JOB NUMBER: [id number] CC: Magalie Mattson MD, Felisa Abbott Electronically Signed by Dr. Pierre Renee 10/07/2017 07:05:24 AM [facility] SURGICAL PATHOLOGY Observed: 10/04/2017 Status: F Source: [facility] 12:00 AM HOSPITALS REPOSITORY Name FCO GARNETT Pathologist: KATYA DENT MD Date of Procedure: 10/04/2017 Date Received: 10/04/2017 Date Reported 10/15/2017 Submitting Physician: MAGALIE MATTSON MD Location: [facility] Other External # FINAL DIAGNOSIS RIGHT BASE OF TONGUE MASS, BIOPSIES: --SQUAMOUS MUCOSA AND UNDERLYING LYMPHOID STROMA WITH NO EVIDENCE OF MALIGNANCY. SEE NOTE. Note: Deeper levels were reviewed. An immunostain for p16 was reviewed and is noncontributory due to absence of tumor in this biopsy specimen. kenny The gross and/or microscopic findings were reviewed in conjunction with pathology resident, Isa Magallon M.D. Electronically Signed Out By KATYA DENT MD/KENNY By the signature on this report, the individual or group listed as making the Final Interpretation/Diagnosis certifies that they have reviewed this case. Clinical History: Right base of tongue mass Specimens Submitted As: A: RIGHT BASE OF TONGUE MASS Gross Description: Received fresh, labeled with the patient's name and hospital number and A, are multiple fragments of pink-barlow, soft tissue aggregating to 2.5 x 0.7 x 0.3 cm. The specimen is submitted in toto in one cassette. LMP lmp/10/04/2017 The assays/tests were performed with appropriate positive and negative controls which stained appropriately. Performed By: #### [facility] #### [facility] Surgical Pathology Department [address] [place] [address] OPERATIVE REPORT Observed: 10/04/2017 Status: UNK Source: [facility] 12:00 AM [facility] [place] [address] Patient Name: FCO GARNETT : 1970 Date of Service: 10/04/2017 Patient Location: OR [facility] OR Patient Type: O Surgeon: Magalie Mattson MD Report Type: Operative Reports PREOPERATIVE DIAGNOSIS: 1. Right base of tongue cancer. 2. Cervical lymph node metastasis POSTOPERATIVE DIAGNOSIS: 1. Right base of tongue cancer. 2. Cervical lymph node metastasis OPERATION/PROCEDURE: 1. Direct laryngoscopy with biopsy 2. Esophagoscopy with PEG placed by General surgery. 3. Bronchoscopy SURGEON: Magalie Mattson MD WASH TANK TENDER(S): 1. Lester Conley MD 2. Emelyn Alexandra MD ANESTHESIA: General. COMPLICATIONS: None. EBL: 10 cc. OPERATIVE INDICATIONS: This is a 46-year-old female, referred to Dr. Magalie Mattson for evaluation and treatment of a right base of tongue cancer. First noticed a neck mass 6 weeks ago. She has undergone previous biopsy at outside hospital which returned as squamous cell carcinoma. She underwent a CT neck which showed a right base of tongue mass along with crossing midline involving the multiple nodes on the right side of the neck. FINDINGS: Right base of tongue lesion is approximately 6 cm with associated nodularity, friability, exophytic and submucosal. Remaining esophagoscopy and remaining direct laryngoscopy including lateral pharyngeal wall and piriform sinus are uninvolved. There was involvement of the valleculae and epiglottis. PROCEDURE: The patient was seen and consented in the preoperative waiting area. She was then brought back to the operating room with the help of Anesthesia and placed supine on the operating bed. Anesthesia induced. An endotracheal tube was placed. We then rotated the bed 90 degrees. We first started with esophagoscopy, and we were able to easily pass through the upper esophageal sphincter down the esophagus to the lower esophageal sphincter into the stomach which was grossly normal anatomically. At that point, the attending, Dr. Renee performed the PEG placement as dictated in his op note. Next we proceeded with the direct laryngoscopy. We were able to visualize the hard palate, soft palate, tonsillar fossa, and base of tongue. They were all noted to be normal except there was a large right base of tongue nodular exophytic 6 cm lesion that did appear to cross midline including the vallecula and epiglottis. It was sent for multiple biopsies using cup forceps. After that, the lateral pharyngeal wall and piriform were visualized and did not appear to be involved. The Dedo was then advanced to the larynx where it was suspended. The remaining glottic structures appeared to be normal. We then proceeded with bronchoscopy and visualized the right and left mainstem bronchi advancing down to the level of the subsegmental bronchi which were all free of any lesions. After withdrawal of the bronchoscopy, we then concluded the procedure. The Dedo was removed and there was no injury to the teeth. The patient was then turned over to Anesthesia for awakening and extubation. She was brought to the PACU in stable condition. Lester Conley MD for Magalie Mattson MD EST TT: 10/05/2017 07:32 PM EST DICTATION NUMBER: [id number] ISAMAR JOB NUMBER: [id number] CC: Magalie Mattson MD, Felisa Abbott Edited by Magalie Mattson 10/22/2017 04:20:01 PM Electronically Signed by Dr. Magalie Mattson 10/22/2017 04:20:01 PM COAGULATION SCREEN Collected: 10/02/2017 Status: F Source: [facility] 3:18 PM [facility] REPOSITORY TYPE CODE TESTS RESULT OUT OF REFERENCE UNITS RANGE LAB PT(LOINC) 9.8 - 12.7 sec PROTHROMBIN TIME 11.3 LAB INR(LOINC) 0.9 - 1.1 PT, INR 1.0 LAB APTT(LOINC 25 - 36 sec ) APTT 31 Result Comment: THE APTT IS NO LONGER USED FOR MONITORING UNFRACTIONATED HEPARIN THERAPY. FOR MONITORING HEPARIN THERAPY, USE THE HEPARIN ASSAY. Performed By: #### COAGS #### [facility] [address] [place] [address] BASIC METABOLIC PANEL Collected: 10/02/2017 Status: F Source: [place] 3:18 [facility] REPOSITORY TYPE CODE TESTS RESULT OUT OF REFERENCE UNITS RANGE LAB GLU(LOINC) 74 - 99 mg/dL GLUCOSE 92 LAB SOD(LOINC) 136 - 145 mmol/L SODIUM 139 LAB K(LOINC) 3.5 - 5.3 mmol/L POTASSIUM 4.3 LAB CHLOR(LOIN 98 - 107 mmol/L C) CHLORIDE 105 LAB BIC(LOINC) 21 - 32 mmol/L BICARBONATE 25 LAB ANGAP(LOIN 10 - 20 mmol/L C) ANION GAP 13 LAB UREA(LOINC 6 - 23 mg/dL ) UREA NITROGEN 12 LAB CREA(LOINC 0.50 - 1.05 mg/dL ) CREATININE 0.53 LAB GFRFN(LOIN >60 mL/min/1.7 C) 3m2 GFR-NON AM. >60 LAB GFRAA(LOIN >60 mL/min/1.7 C) 3m2 GFR- AM. >60 Result Comment: CALCULATIONS OF ESTIMATED GFR ARE PERFORMED USING THE MDRD STUDY EQUATION FOR THE IDMS-TRACEABLE CREATININE METHODS. CLIN CHEM 2007;53:766-72 LAB CA(LOINC) 8.6 - 10.6 mg/dL CALCIUM 9.5 Performed By: #### BMP #### [facility] [address] [place] [id number] CBC Collected: 10/02/2017 Status: F Source: [place] 3:18 PM HOSPITALS REPOSITORY TYPE CODE TESTS RESULT OUT OF REFERENCE UNITS RANGE LAB WBCR(LOINC 4.4 - 11.3 x10E9/L ) WBC 6.7 LAB NRBC(LOINC 0.0-0.0 /100 WBC ) NUCLEATED RBC 0.0 LAB RBCCT(LOIN 4.00 - 5.20 x10E12/L C) RBC 4.17 LAB HGB(LOINC) 12.0 - 16.0 g/dL HGB 13.1 LAB HCT(LOINC) 36.0 - 46.0 % HCT 40.4 LAB MCV(LOINC) 80 - 100 fL MCV 97 LAB MCHC2(LOIN 32.0 - 36.0 g/dL C) MCHC 32.4 LAB PLTCT(LOIN 150 - 450 x10E9/L C) PLT 287 LAB RDWCV(LOIN 11.5 - 14.5 % C) RDW-CV 13.6 Performed By: #### CBC #### [facility] [address] [place] [address] MA MAMM SCREEN W/CAD Observed: 09/27/2017 Status: F Source: [place] IF PERFORMED BILAT 9:23 AM [facility] REPOSITORY Exam Date/Time: 09/27/2017 09:42 EDT Reason for Exam: BASELINE SCREENING Report BILATERAL DIGITAL SCREENING MAMMOGRAM, CAD: REASON FOR EXAM: Screening. COMPARISON: 04/19/2014. TECHNIQUE: Bilateral craniocaudal and mediolateral oblique projections were obtained with additional CAD evaluation. FINDINGS: BREAST COMPOSITION: Scattered fibroglandular tissue density pattern noted. No new mass, malignant-type calcifications, architectural distortion, or other interval change is seen, to suggest malignancy. A low density well-circumscribed nodular focus in the deep central portion of the right breast appears stable. A right skin lesion with ring marker is present. Benign-appearing axillary cesar densities are present. Areas of focal glandular asymmetry are again seen. Glandular asymmetry is most prominent in the upper outer posterior aspect the left breast which also appears stable. IMPRESSION: Stable pattern with benign findings. BI-RADS 2 - Benign, no evidence of malignancy. RECOMMENDATIONS: Continued clinical correlation and yearly screening followup. OVERALL ASSESSMENT- BENIGN A letter of notification will be sent to the patient regarding the results. Assessment / Recommendation: 2-1 Normal interval follow-up Breast density: Scattered Fibroglandular Density Exam Date/Time: 09/27/2017 09:42 EDT Report Recall interval: 012 months FINAL REPORT Dictated: 09/27/2017 1:33 pm Pedro Luis Booth DO Signed (Electronic Signature): 09/27/2017 1:33 pm Signed by: Pedro Luis Booth DO Technologist: CORNELIO Assessment: BI-RADS Category 2-Benign finding Recommendation: Normal interval follow-up COMPREHENSIVE METABOLIC Collected: 09/18/2017 Status: F Source: [facility] PANEL 10:11 AM [facility] REPOSITORY TYPE CODE TESTS RESULT OUT OF RANGE REFERENCE UNITS LAB GLU 70-99 mg/dL Normal Glucose 95 Result Comment: This test result might be falsely depressed or falsely elevated on samples drawn from patients taking Sulfasalazine and Sulfapyridine. Venipuncture should occur prior to taking either of these drugs. LAB BUN 8-25 mg/dL Normal BUN 12 LAB CREA 0.40-1.10 mg/dL Normal Creatinine 0.57 LAB eGFR ml/min/1.73s Normal q.m eGFR,NonAfrican-A merican >=60 Result Comment: Non- GFR Calc eGFR is an estimated Glomerular Filtration Rate based on the value of the patient's serum creatinine. In outpatients, eGFR should be used as a helpful tool in screening for CKD. In inpatients or patients with acute renal failure, eGFR represents the GFR at the moment of the draw and should be used with caution. LAB eGFRB ml/min/1.73sq.m eGFR, Normal -South Sudanese >=60 Result Comment: GFR Calc LAB CALCM 8.4-10.2 mg/dL Calcium Normal 9.0 LAB NA 135-145 mmol/L Sodium Normal 138 LAB K 3.5-5.1 mmol/L Normal Potassium 3.9 LAB CL 98-108 mmol/L Chloride Normal 107 LAB CO2 21-32 mmol/L CO2 Normal 26 LAB AST 0-45 U/L AST Normal (SGOT) 9 Result Comment: This test result might be falsely depressed or falsely elevated on samples drawn from patients taking Sulfasalazine and Sulfapyridine. Venipuncture should occur prior to taking either of these drugs. LAB ALT 14-65 U/L Normal ALT (SGPT) 17 Result Comment: This test result might be falsely depressed or falsely elevated on samples drawn from patients taking Sulfasalazine and Sulfapyridine. Venipuncture should occur prior to taking either of these drugs. LAB ALKP 40-150 U/L Normal Alkaline Phosphatase 75 LAB BILIT 0.3-1.2 mg/dL Normal Bilirubin,Total 0.3 LAB PROT 6.0-8.0 g/dL Normal Protein, Total 7.1 LAB ALB 3.2-5.2 g/dL Normal Albumin 3.6 Performed By: #### CMET, TSH #### Unless otherwise noted, all testing performed by [place] [address] CLIA: [id number] Power Transformer Inspector: Issa Grayson M.D. TSH Collected: 09/18/2017 Status: F Source: [facility] 10:11 AM [facility] REPOSITORY TYPE CODE TESTS RESULT OUT OF RANGE REFERENCE UNITS LAB TSH 0.320-5.000 uIU/mL High TSH 11.00 Result Comment: Samples from patients routinely receiving high dose biotin therapy (100-300 mg/day) may show falsely decreased results. Please correlate clinically. LAB FT4 0.76-1.79 ng/dL Normal T4, Free 0.9 Result Comment: Samples from patients routinely receiving high dose biotin therapy (100-300 mg/day) may show falsely decreased results. Please correlate clinically. Performed By: #### CMET, TSH #### Unless otherwise noted, all testing performed by [place] [address] CLIA: [id number] Power Transformer Inspector: Issa Grayson M.D. CT SOFT TISSUE NECK Observed: 09/12/2017 Status: F Source: [place] W/ CONTRAST 2:16 PM [facility] REPOSITORY Exam Date/Time: 09/12/2017 14:35 EDT Reason for Exam: NECK MASS Report TECHNIQUE: CT scan performed through the soft tissues of the neck and reconstructed in the axial, coronal and sagittal plane. Dose reduction techniques were achieved by using automated exposure control and/or adjustment of mA and/or kV according to patient size and/or use of iterative reconstruction technique. CONTRAST: 100 mL Omnipaque 300 contrast. HISTORY: Lump right-sided neck. FINDINGS: Right neck necrotic adenopathy. Level III necrotic lymph node measuring approximately 39 x 29 x 26 mm in craniocaudad and transverse dimension. Right neck level V lymph node measuring approximate 14 x 18 mm in diameter. Mass involving the lingual tonsil and extending into the right aryepiglottic fold, measuring approximately 28 x 36 x 36 mm in craniocaudad and transverse dimension. The nasopharynx and parapharyngeal soft tissues as well as the larynx are normal. The parotid glands, submandibular glands and thyroid are normal. Lung apices are clear. Osseous structures are intact. IMPRESSION: 1. Mass involving the lingual tonsil extending in the right aryepiglottic fold, measuring 28 x 36 x 36 mm. 2. Right neck necrotic adenopathy. 3. Critical results were called by Dr. Rosendo Sullivan to Lester Caceres At 09/13/2017 8:26 AM. FINAL REPORT Dictated: 09/13/2017 12:56 pm Crescencio Sullivan MD Signed (Electronic Signature): 09/13/2017 12:56 pm Signed by: Crescencio Sullivan MD Technologist: MC, CBC W/ AUTO DIFF Collected: 09/10/2017 Status: F Source: [place] 11:20 AM [facility] REPOSITORY TYPE CODE TESTS RESULT OUT OF RANGE REFERENCE UNITS LAB [id number](L 3.6-11.0 E3/mcL OINC) Normal WBC 8.2 LAB [id number](L 3.90-5.40 E6/mcL OINC) Normal RBC 4.56 LAB [id number](L 12.0-16.0 G/DL OINC) Normal Hgb 14.4 LAB [id number](L 36.0-48.0 % OINC) Normal Hct 43.3 LAB [id number](L 11.5-14.5 % OINC) Normal RDW 13.9 LAB [id number](L 27.0-31.0 pg OINC) High MCH 31.6 LAB [id number](L 33.0-37.0 G/DL OINC) Normal MCHC 33.2 LAB [id number](L 78.0-100.0 fL OINC) Normal MCV 95.1 LAB [id number](L 7.4-11.0 fL OINC) Normal MPV 8.4 LAB [id number](L 130-400 E3/mcL OINC) Normal Platelet 319 Performed By: #### [id number] #### [facility] [address] [place] [id number] AUTO DIFF Collected: 09/10/2017 Status: F Source: [place] 11:20 AM [facility] REPOSITORY Order Comment: Order Added by Discern Expert. TYPE CODE TESTS RESULT OUT OF RANGE REFERENCE UNITS LAB [id number](L 37.0-75.0 % OINC) Normal Neutro Auto 63.2 LAB [id number](L 20.0-55.0 % OINC) Normal Lymph Auto 26.4 LAB 24801672(L 0.0-10.0 % OINC) Normal Ramsey Auto 5.8 LAB 57407880(L 0.0-11.0 % OINC) Normal Eos Auto 4.2 LAB 54101421(L 0.0-2.0 % OINC) Normal Basophil Auto 0.4 LAB 65723092(L 1.4-6.5 E3/mcL OINC) Normal Neutro 5.2 Absolute LAB 15280777(L 1.2-3.4 E3/mcL OINC) Normal Lymph Absolute 2.2 LAB 84667159(L 0.0-0.7 E3/mcL OINC) Normal Ramsey Absolute 0.5 LAB 70763523(L 0.0-0.7 E3/mcL OINC) Normal Eos Absolute 0.3 LAB 73940472(L 0.0-0.2 E3/mcL OINC) Normal Basophil 0.0 Absolute Performed By: #### [id number] #### [facility] [address] [place] [address] CMP Collected: 09/10/2017 Status: F Source: [place] 11:20 AM [facility] REPOSITORY TYPE CODE TESTS RESULT OUT OF RANGE REFERENCE UNITS LAB [id number](L 70-99 mg/dL OINC) High Glucose Lvl 100 LAB 32478838(L 7-18 mg/dL OINC) BUN Normal 12 LAB 9985715(LO 0.6-1.3 mg/dL INC) Low Creatinine 0.5 LAB 55106647(L 8.4-10.2 mg/dL OINC) Calcium Normal Lvl 9.2 LAB 64718640(L 136-145 mEq/L OINC) Sodium Normal Lvl 140 LAB 03016468(L 3.5-5.1 mEq/L OINC) Normal Potassium Lvl 4.1 LAB 61254541(L 98-107 mEq/L OINC) Chloride Normal 107 LAB 94294876(L 24.0-30.0 mEq/L OINC) CO2 Normal 26.1 LAB 82082656(L 5.4-30.0 ratio OINC) Normal BUN/Creat Ratio 24.0 LAB 45036835(L 42-121 Int._Unit/ OINC) L Alk Phos Normal 62 LAB 69675899(L 0.2-1.0 mg/dL OINC) Bili Normal Total 0.5 LAB 11937803(L 3.2-5.0 G/DL OINC) Albumin Normal Lvl 3.9 LAB 11114944(L 6.4-8.3 G/DL OINC) Total Normal Protein 7.2 LAB 32446079(L 10-40 Int._Unit/ OINC) L ALT Normal 12 LAB 58189418(L 10-42 Int._Unit/ OINC) L AST Normal 13 LAB [id number](L 2.0-4.0 G/DL OINC) Globulin Normal 3.3 LAB 97222019(L 1.1-1.9 ratio OINC) A/G Normal Ratio 1.2 Performed By: #### [id number] #### [facility] [address] [place] [id number] EGFR Collected: 09/10/2017 Status: F Source: [place] 11:20 AM [facility] REPOSITORY Order Comment: Order added by Discern Expert. TYPE CODE TESTS RESULT OUT OF RANGE REFERENCE UNITS LAB [id number](LO mL/min/1.73 INC) m2 Normal eGFR >60 LAB [id number](LO mL/min/1.73 INC) m2 Normal eGFR AA >60 Performed By: #### [id number] #### ALEXANDRA [facility] [address] [place] [address] CRP Collected: 09/10/2017 Status: F Source: YAZIDI 11:20 AM [facility] REPOSITORY TYPE CODE TESTS RESULT OUT OF RANGE REFERENCE UNITS LAB [id number](LO 0.00-0.75 mg/dL INC) Normal CRP <0.50 Performed By: #### [id number] #### ALEXANDRA [facility] [place] [id number] XR NECK SOFT TISSUE Observed: 09/10/2017 Status: F Source: YAZIDI 11:19 AM [facility] REPOSITORY Exam Date/Time: 09/10/2017 11:30 EDT Reason for Exam: Neck mass Report Neck soft tissues-AP, lateral HISTORY: Neck lump. FINDINGS: The prevertebral soft tissue thickness is normal. The epiglottis is normal in size. No distention of the hypopharynx is seen. There is no soft tissue mass visualized in the neck. IMPRESSION: Normal examination. FINAL REPORT Dictated: 09/10/2017 11:38 am Yaron Acosta MD Signed (Electronic Signature): 09/10/2017 11:38 am Signed by: Yaron Acosta MD Technologist: PIERRE ALLERGIES ALLERGIES DATE TYPE / CODE NAME / CODE REACTION SEVERITY SOURCE 04/09/2018 Drug No Known Unknown [facility] Allergy/416 Allergies/Z83075 Hospital 641007(SNOM 0388(RXNORM) Repository ED CT) Drug NO KNOWN [facility] Three Class/75312 ALLERGIES Repository 1003(SNOMED CT) Drug/033229 No Known Pentec[employer]alism 003(SNOMED Allergies [facility] CT) System Repository ENCOUNTERS ENCOUNTERS ADMIT/DISCHARGE ACCOUNT NUMBER ADMITTING ENCOUNTER LOCATION SOURCE CLASS 06/18/2018 [id number] Ambulatory [facility] ding:SP Repository 06/04/2018 [id number] Ambulatory [facility] ding:ONC Repository 06/02/2018 [id number] Ambulatory [address] [place] [address] Repository 05/22/2018 [id number] Ambulatory Building:[facility] Repository 05/21/2018 [id number] Ambulatory [facility] Hospital ding:RAD Repository 05/15/2018/05/19/20 [id number] Ambulatory Building:[address] Repository 04/09/2018 [id number] Ambulatory BMSBuilding: [place] BMS.CF.[facility] Repository 04/07/2018 [id number] Ambulatory BMSBuilding: [place] BMS.CF[facility] Repository 04/03/2018 [id number] Ambulatory [address] [place] [address] Repository 03/28/2018/03/28/20 [id number] [place], Ambulatory [address] ding:[facility] Repository 03/28/2018 [id number] Ambulatory [address] [place] [place] [address] Repository 03/18/2018/03/22/20 [id number] Ambulatory Building:[address] Repository 03/13/2018 [id number] Ambulatory Building:[facility] Repository 03/12/2018 [id number] Ambulatory BMSBuilding: [place] BMS.CF[facility] Repository 03/11/2018/03/15/20 [id number] Ambulatory Building:[address] Repository 02/20/2018 [id number] Ambulatory [address] [place] [address] Repository 02/20/2018 [id number] Ambulatory Building:[facility] Repository 02/11/2018 [id number] Ambulatory Building:[facility] Repository 02/10/2018 [id number] Ambulatory BMSBuilding: [place] BMS.CF[facility] Repository 02/06/2018 [id number] Ambulatory [address] [place] [address] Repository 02/04/2018 [id number] Ambulatory [facility] ding:NS Repository 01/20/2018 [id number] Ambulatory BMSBuilding: [place] BMS.CF[facility] Repository 01/17/2018/01/18/20 [id number] Ambulatory [address] ding:NS Repository 01/13/2018 [id number] Ambulatory [address] [place] [address] Repository 01/13/2018 [id number] Ambulatory Building:[facility] Repository 01/09/2018 [id number] Ambulatory Building:[facility] Repository 01/08/2018 [id number] Ambulatory BMSBuilding: [place] BMS.CF[facility] Repository 01/06/2018 [id number] [facility] [place] [facility] 01/02/2018 [id number] Ambulatory Building:[facility] Repository 12/26/2017 [id number] Ambulatory Building:[facility] Repository 12/24/2017 [id number] Ambulatory Building:[facility] Repository 12/20/2017/12/25/19 [id number] Ambulatory [address] Hospital ding: Repository 12/17/2017 [id number] Ambulatory [facility]Building: [place] [facility] Rep[facility] 12/17/2017 [id number] Ambulatory Building:[facility] Repository 12/11/2017 [id number] Ambulatory BMSBuilding: [place] [facility]MS.[facility] Repository 12/10/2017 [id number] Ambulatory BMSBuilding: [place] BMS.[facility] Repository 12/04/2017 [id number] Ambulatory BMSBuilding: [place] BMS.[facility] Repository 12/03/2017 [id number] Ambulatory [facility]Building[facility] [place] [facility] Rep[facility] 11/27/2017 [id number] Ambulatory Building:[facility] Repository 11/26/2017 [id number] Ambulatory BMSBuilding: [place] [facility] Repository 11/26/2017 [id number] Ambulatory BMSBuilding: [place] [facility] Repository 11/26/2017 [id number] Ambulatory Building:[facility] Repository 11/25/2017 [id number] Ambulatory [address] [place] [address] Repository 11/20/2017 [id number] Ambulatory B[facility]Building: [place] [facility] Rep[facility] 11/18/2017 [id number] Ambulatory [facility] [place] [facility] Rep[facility] 11/18/2017 [id number] Ambulatory Building:[facility] Repository 11/15/2017/11/24/19 [id number] Ambulatory [address] ding:NS Repository 11/13/2017 [id number] Ambulatory BMSBuilding: [place] [facility] Repository 11/11/2017 [id number] Ambulatory BMSBuilding: [place] BMS.[facility] Repository 11/06/2017 [id number] Ambulatory BMSBuilding: [place] BMS.CF[facility] Repository 11/04/2017 [id number] Ambulatory BMSBuilding: [place] BMS.CF[facility] Repository 10/24/2017/10/25/19 [id number] Ambulatory [address] ding:NS Repository 10/24/2017/10/25/19 [id number] Ambulatory BMSBuilding: [place] 18 BMS.[facility] Repository 10/23/2017 [id number] Ambulatory BMSBuilding: [facility] Repository 10/22/2017 [id number] Ambulatory BMSBuilding: [facility] Repository 2017 [id number] Ambulatory BMSBuilding: [place] BMS.CF.[facility] Repository 10/18/2017/10/19/19 [id number] Ambulatory [address] ding:SDCRoom Repository : AC12 2017 [id number] Ambulatory Building:[facility] Repository 10/17/2017 [id number] Ambulatory [address] [place] [address] Repository 10/17/2017 [id number] Ambulatory BMSBuilding: [place] [facility] Repository 10/16/2017 [id number] Ambulatory Building:[facility] Repository 10/15/2017 [id number] Ambulatory BMSBuilding: [facility] Repository 10/15/2017 [id number] Ambulatory Building:[facility] Repository 10/14/2017 [id number] Ambulatory BMSBuilding: [place] [facility] Repository 10/14/2017 [id number] Ambulatory [facility] Repository 10/14/2017 [id number] [facility] [place] [facility] Repository 10/14/2017/10/15/19 [id number] Ambulatory BMSBuilding: [place] 18 BMS.[facility] Repository 10/10/2017 [id number] Ambulatory BMSBuilding: [place] [facility] Repository 10/08/2017 [id number] Ambulatory BMSBuilding: [place] BMS.CF[facility] Repository 10/07/2017/10/08/19 [id number] Kandy [address] ding:[facility] Repository 10/04/2017/10/05/[id number] Srinivasan [facility] [address]: [facility]0Bed: Repository TMOR03 10/02/2017 [id number] Ambulatory [facility] Repository 10/02/2017 [id number] Ambulatory [facility] Repository 09/30/2017 [id number] Ambulatory Building:[facility] Repository 09/27/2017/09/28/19 [id number] Felisa Abbott [address] ding:[facility] Repository 09/23/2017/09/24/[id number]andy[address] ding:[facility] Repository 09/18/[id number] iMlena Ambulatory [facility] Repository 09/18/2017/09/19/19 [id number] Ambulatory Building:[address] Repository 09/16/2017/09/17/19 [id number] Kandy [address] ding:[facility] Repository 09/12/2017/09/13/[id number] ding:[facility] Repository 09/10/2017/09/11/[id number] ding:[facility] Repository 09/10/2017/09/11/[id number] [facility], [facility] 18 [facility] ding:CD:1320 [facility] [address]87[address]Iwgu: Repository CD:[id number] 09/10/[id number] [place], [facility] ding:[facility] Repository 07/31/2017/08/01/[id number] Sokari, Emergency [address] ding:[facility] EDRoom: WR Repository PAYERS PAYERS ENCOUNTER GUARANTOR 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 SOURCE 06/18/2018 FCO L Primary FCO Ladonna [id number] S Insurance:[facility]: [facility] [id number], Number: Repository [place] [address]Wnq: [id number] Date:0222-38-59WN BOX () [address], [place] [address]KK: 06/18/2018 Secondary NOT GIVENUNK [place] Insurance:SELF PAY [facility] Number: Effective Repository Date:2018-05-15 06/04/2018 FCO Dougherty [facility] FCO [facility] HospitalIliabrendan [address] Insurance:[facility]: [facility] [id number], Number: Repository [place] [address]Gvh: [id number] Date:7408-97-62RT BOX () [place] [address]UU: 06/04/2018 Secondary NOT GIVENUNK [place] Insurance:SELF PAY [facility] Number: Effective Repository Date:2017-10-03 06/02/2018 [facility] CenterB: Insurance:[facility]: [facility] S Insurance Company [id number] MedicaidPolicy [address], Number: APT [place] [id number]: [id number] [address], Date:Plan [place] [id number]: (HP) Name:[address], [place] () [id number]: 05/22/2018 FCO L Primary FCO L [facility] OCONTODOB: Insurance:[facility]: Three Repository Number: [id number] [facility] [id number] [facility] APT Date:2016-11-24 - [address], 0049-72-94[place] [address] [place] [address] [place] [address]VY: 05/22/2018 Secondary FCO L [facility] Insurance:[facility] OCONTODOB: Three Repository MANAGED [id number] MEDICAIDPolicy S [address] Number: APT [id number] [address] [place] [address] Date:7093-64-26KJ [address] [place] [address]PH: 05/21/2018 FCO L Primary FCO L [place] [address] [address] Insurance:[facility]: [facility] [id number], Number: [place]ository [place] [address]Icc: [id number] Date:6458-28-69IX BOX (HP) [place] [address]CA: 05/21/2018 Secondary NOT GIVENUNK [place] Insurance:SELF PAY [facility] Number: Effective Repository Date:2018-04-25 05/15/2018 FCO L Primary FCO L [facility]: Insurance:[facility]: Three Repository MANAGED [id number] [address] MEDICAIDPolicy S [address] AP[address] Number: APT [id number], [id number] [address] [place] [address] [place] [address] Date:1691-89-96[address] [place] [address]AP: 05/15/2018 Secondary FCO L [facility] Insurance:[facility]: Three Repository MANAGED [id number] MEDICAIDPolicy S [address] Number: APT [id number] [address] [place] [address] Date:3327-71-85GU [address] [address]WI: 04/09/2018 FCO L Primary FCO L [place] [address] S Insurance:[facility]: [facility] [id number], Number: Repository [place] [address]Upu: [id number] Date:7663-82-58IY BOX () [place] [address]QJ: 04/09/2018 Secondary NOT GIVENUNK [place] Insurance:SELF PAY [facility] Number: Effective Repository Date:2018-04-09 04/07/2018 FCO L Primary FCO [place] [address] [address] Insurance:[facility]: [facility] [id number], Number: Repository [place] [address]Qgj: [id number] Date:0939-93-12KE BOX () [address], [place] [address]DA: 04/07/2018 Secondary NOT GIVENUNK [place] Insurance:SELF PAY [facility] Number: Effective Repository Date:2018-04-07 04/03/2018 [facility]: Insurance:[facility]: [facility] Insurance Company [id number] [address] MedicaidPolicy S [address], Number: APT [place] [id number]: [id number] [address], Date:Plan [place] [phone]: (HP) Name:[address], [place] (HP) [phone]: 03/28/2018 FCO L Primary FCO L [facility]: Insurance:[facility]: [facility] S ADVANTAGE MCAID [id number] System [facility] APT [facility] Number: [facility] Repository [id number], Effective APT [place] Date:2018-03-27 - [id number], [address]Jar: 9173-07-06Aatf [place] Name:CD:[id number] [address]Npt: (HP) [address], [place] ) [phone] [address]WP: (722) (HP) [phone] () 03/28/2018 FCO Primary [facility]: Insurance:[facility]: [facility] S Insurance Company [id number] MedicaidPolicy [address] [id number], Number: APT [place] [id number]: [id number], Date:Plan [place] [id number]: (HP) Name:[address], [place] (HP) [phone]: 03/18/2018 FCO L Primary FCO [facility]: Insurance:[facility]: [facility] Repository MANAGED [id number] [address] MEDICAIDPolicy [address] APT Number: APT TRACI, [id number] [address] [place] [address], [place] [address]Byv: Date:9373-09-41EG [address] [address], [place] (HP) [address]BE: 03/18/2018 Secondary FCO L [facility] Insurance:[facility]: Three Repository MANAGED [id number] MEDICAIDPolicy S [address] Number: APT [id number] [address] [place] [address] Date:9413-31-99NT [address] [place] [address]KW: 03/13/2018 FCO L Primary FCO L [facility]: Insurance:MMOPolRobert Wood Johnson University Hospital at RahwayB: Three Repository Number: [id number] [facility] [id number] [facility] APT Date:2016-11-24 - [id number], 9950-49-46[place] [address] [place] [address]Iwg: [address] [address]JI: [phone] () [phone] 03/12/2018 FCO L Primary FCO L [place] [address] [address] Insurance:[facility]: [facility] [id number], Number: Repository [place] [address]Plc: [id number] Date:3857-86-20UL BOX () [place] [address]DP: 03/12/2018 Secondary NOT GIVENUNK [place] Insurance:SELF PAY [facility] Number: Effective Repository Date:2018-03-12 03/11/2018 FCO L Primary FCO L [facility]B: Insurance:[facility]B: Three Repository Number: [id number] [facility] [id number] [facility] APT Date:2016-11-24 - [id number], 8680-87-61[place] [address] [place] [address]Xqm: [place] [address]SN: [phone] 02/20/2018 FCO Primary [facility]: Insurance:Medical [facility]: [facility] S [facility] [id number] Repository IESHA CHAVARRIA APT Number: Nino CHAVARRIA [id number], [id number] APT [place] [id number]: Date:Plan Name:[address], [place] [phone]: (BZ) (HP) 02/20/2018 FCO L Primary FCO L [facility]: Insurance:[facility]: Three Repository Number: [id number] BEXAR [id number] [place], [place] Date:9735-94-11ZF [address] [place] 0197[address]Tel: [phone] [address] [phone] (HP) [address]FN: 02/11/2018 FCO L Primary FCO L [facility]: Insurance:[facility]: [facility] Repository Number: [id number] BEXAR [id number] [place], [place] Date:8409-90-97YI [address] [place] 0197[address]Tel: [phone] 6018[facility] [address] [phone] (HP) [address]OJ: 02/10/2018 FCO L Primary FCO L [place] [address] S Insurance:[facility]: [facility] [id number] [address], Number: Repository [place] [address]Rdo: [id number] Date:1457-29-19CN BOX () [address] [address]KE: 02/10/2018 Secondary FCO L [place] Insurance:[facility]: [facility] [id number] [facility] Number: Repository [id number] Date:1333-30-69XV [address] [place] [address]IP: 02/10/2018 Tertiary NOT GIVENUNK [place] Insurance:SELF PAY [facility] Number: Effective Repository Date:2018-02-10 02/06/2018 FCO L Primary FCO L [facility]: Insurance:[facility]: [facility] [id number] Repository [facility] Number: [facility] [address]T [id number], Date:Plan Name:[address] [address]Kpo: [place] [address]Xnz: (IE) (EV) 02/04/2018 FCO L Primary FCO L [place] [id number] S Insurance:[facility]FL[facility]LEB: [facility] [id number], Number: Repository [place] [address]Vbf: [id number] Date:7484-24-13RC BOX () [address], [place] [address]NO: 02/04/2018 Secondary FCO L [place] Insurance:[facility]: [facility] [id number] Hospital Number: Repository [id number] Date:4725-63-38VV [address] [place] [address]IX: 02/04/2018 Tertiary NOT GIVENUNK [place] Insurance:SELF PAY [facility] Number: Effective Repository Date:2018-01-25 01/20/2018 FCO L Primary FCO L [place] [id number] S Insurance:[facility]B: [facility] [id number], Number: Repository [place] [address]Lbq: [id number] Date:2302-71-72MB BOX () [address] [address]MF: 01/20/2018 Secondary FCO L [place] Insurance:[facility]: [facility] [id number] Hospital Number: Repository [id number] Date:9074-98-80OX [address] [place] [address]UV: 01/20/2018 Tertiary NOT GIVENUNK [place] Insurance:SELF PAY [facility] Number: Effective Repository Date:2018-01-20 01/17/2018 FCO L Primary FCO L [place] [address] Insurance:MEDICAL [facility]: [facility] [id number], Number: Repository [place] [address]Zkg: [id number] Date:6303-21-65MI BOX ) [address] [place] [address]JG: 01/17/2018 Secondary FCO L [place] Insurance:[facility]: [facility] [id number] Hospital Number: Repository [id number] Date:3731-85-17JI [address] [place] [address]BJ: 01/17/2018 Tertiary NOT GIVENUNK [place] Insurance:SELF PAY [facility] Number: Effective Repository Date:2017-12-25 01/13/2018 FCO L Primary FCO L University [facility]: Insurance:Medical [facility]: [facility] [id number] Repository [facility] Number: [facility] ST [id number], Date:Plan Name:[address] [address]Djh: [place] [address]Pqu: (VV) () 01/13/2018 Secondary FCO L University Insurance:[place] [facility]: [facility] Insurance [facility] [id number] Repository MedicaidPolicy [place] Number: ST APT [id number] [address], Date:Plan [place] [address]Fti: Name:Health [address] [place] [address] () [id number]: 01/13/2018 FCO L Primary [facility] L [facility]: Insurance:[facility]B: Three Repository Number: [id number] K[place] [id number] S [place], [place] Date:1829-03-13OZ [address] [place] [address]Tel: [phone]) 67[address] [phone] (HP) [address]VK: 01/09/2018 FCO L Primary FCO L [facility]: Insurance:[facility] CenterB: Three Repository Number: [id number] [place] [id number] S [place], [place] Date:0519-44-33TQ [address] [place] [address]Tel: [phone]) [place] [phone] () [address]RO: 01/08/2018 FCO L Primary FCO L [place] [address] S Insurance:[facility]: [facility] [id number], Number: Repository [place] [address]Znv: [id number] Date:6261-45-86QY BOX () [address] [address]ZX: 01/08/2018 Secondary FCO L [place] Insurance:[facility] OCONTODOB: [facility] [id number] Hospital Number: Repository [id number] Date:4312-78-54SP [address], [place] [address]MJ: 01/08/2018 Tertiary NOT GIVENUNK [place] Insurance:SELF PAY [facility] Number: Effective Repository Date:2018-01-08 01/06/2018 FCO L Primary FCO L [place] [id number] S Insurance:MEDICAL OCONTODOB: [facility] [id number] Hospital [id number], Number: Repository [place] [id number]: [id number] Date:7005-64-03TZ BOX (JE) [address] [address]GY: 01/06/2018 Secondary FCO L [place] Insurance:[facility]: [facility] [id number] Hospital Number: Repository [id number] Date:4748-69-53RN [address] [place] [address]VB: 01/06/2018 Tertiary NOT GIVENUNK [place] Insurance:SELF PAY [facility] Number: Effective Repository Date:2018-01-06 01/02/2018 FCO L Primary FCO L [facility]: Insurance:[facility] CenterB: Three Repository Number: [id number] BEXAR [id number] [place], [place] Date:7660-89-61CT [address] [place] [address]Tel: [phone] 6206[facility] [phone] (HP) [address]RP: 12/26/2017 FCO L Primary FCO L [facility]: Insurance:[facility] CenterB: Three Repository Number: [id number] BEXAR [id number] [place], [place] Date:1167-10-80KS [address] [address]197[address]Tel: [phone] [phone] (HP) [address]FZ: 12/24/2017 FCO L Primary [facility]CO L [facility] Three Repository Number: [id number] KING [id number] [place] Date:6699-13-21NV [address]OX UCV1WPCRZDSCZTX, [address]Fzo: [phone] [address] [phone] () [address]TP: 12/20/2017 FCO L Primary FCO L Ilia [id number] S Insurance:[facility]: [facility] [id number], Number: Repository [place] [address]Ejf: [id number] Date:0843-82-04XZ BOX () [address] 7124701[address]WP: 12/20/2017 Secondary FCO L Ilia Insurance:[facility]: [facility] [id number] Hospital Number: Repository [id number] Date:8559-66-54KL [address] [place] [address]EE: 12/20/2017 Tertiary NOT GIVENUNK Ilia Insurance:SELF PAY [facility] Number: Effective Repository Date:2017-11-24 12/17/2017 FCO L Primary FCO L Ilia [id number] S Insurance:[facility]: [facility] [id number], Number: Repository [place] [address]Jyu: [id number] Date:2872-42-09QX BOX () [address] [place] [address]OH: 12/17/2017 Secondary FCO L Ilia Insurance:[facility]: [address]05-25[facility] Number: Repository [id number] Date:4499-54-04YR [address] [address]MF: 12/17/2017 Tertiary NOT GIVENUNK Ilia Insurance:SELF PAY [facility] Number: Effective Repository Date:2017-12-17 12/17/2017 FCO L [facility] Three Repository Number: [id number] KING [id number] [place] Date:9460-11-73QL [address] [address]197[address]Tel: [phone] [address] [phone] (SF) [address]HE: 12/11/2017 FCO L Primary FCO L [place] [id number] S Insurance:[facility]: [facility] [id number], Number: Repository [place] [address]Kha: [id number] Date:8846-61-90WI BOX () [address] 7124701[address]WP: 12/11/2017 Secondary FCO L Ilia Insurance:[facility]: [facility] [id number] Hospital Number: Repository [id number] Date:1731-05-40NM [address] [place] [address]HE: 12/11/2017 Tertiary NOT GIVENUNK [place] Insurance:SELF PAY [facility] Number: Effective Repository Date:2017-12-11 12/10/2017 FCO L Primary FCO L Ilia [id number] S Insurance:[facility]: [facility] [id number], Number: Repository [place] [id number]: [id number] Date:5508-31-48GF BOX () [address] [address]NE: 12/10/2017 Secondary FCO L Ilia Insurance:[facility]: [facility] [id number] Hospital Number: Repository [id number] Date:7733-64-80ZA [address] [place] [address]MV: 12/10/2017 Tertiary NOT GIVENUNK [place] Insurance:SELF PAY [facility] Number: Effective Repository Date:2017-12-10 12/04/2017 FCO L Primary FCO L Iliabrendan [id number] S Insurance:[facility]: [facility] [id number], Number: Repository [place] [address]Cgi: [id number] Date:6103-66-74AI BOX () [address] [place] [address]PI: 12/04/2017 Secondary FCO L [place] Insurance:[facility]: [facility] [id number] Hospital Number: Repository [id number] Date:3892-22-32GN [address], [place] [address]MF: 12/04/2017 Tertiary NOT GIVENUNK Ilia Insurance:SELF PAY [facility] Number: Effective Repository Date:2017-12-04 12/03/2017 FOC L Primary FCO L Iliabrendan [id number] S Insurance:[facility]: [facility] [id number], Number: Repository [place] [id number]: [id number] Date:1892-33-74YB BOX () [address], [place] [address]XT: 12/03/2017 Secondary FCO L Ilia Insurance:[facility]: [facility] [id number] Hospital Number: Repository [id number] Date:5737-60-37VC [address] [place] [address]XB: 12/03/2017 Tertiary NOT GIVENUNK [place] Insurance:SELF PAY [facility] Number: Effective Repository Date:2017-12-03 11/27/2017 FCO L Primary FCO L [facility]B: Insurance:[facility]B: Three Repository Number: [id number] [place] [id number] [place] Date:1428-55-60PS [address] [address]Faf: [phone] [address] [phone] (HP) [address]KW: 11/26/2017 FCO L Primary FCO L [place] [id number] S Insurance:[facility]: [facility] [id number], Number: Repository [place] [address]Anw: [id number] Date:2730-94-45HM BOX (HP) [address] [address]BS: 11/26/2017 Secondary FCO L Ilia Insurance:[facility]: [facility] [id number] Hospital Number: Repository [id number] Date:5808-46-94CR [address] [address]UZ: 11/26/2017 Tertiary NOT GIVENUNK [place] Insurance:SELF PAY [facility] Number: Effective Repository Date:2017-11-26 11/26/2017 FCO L Primary FCO L [place] [id number] S Insurance:[facility]: [address], Number: Repository [place] [address]Wze: [id number] Date:2500-77-40TZ BOX (HP) [address] [address]HP: 11/26/2017 Secondary FCO L Ilia Insurance:[facility]: [address]05-25[facility] Number: Repository [id number] Date:0605-18-96LD [address] [address]BL: 11/26/2017 Tertiary NOT GIVENUNK Ilia Insurance:SELF PAY [facility] Number: Effective Repository Date:2017-11-26 11/26/2017 FCO L Primary FCO L [facility]B: Insurance:[facility]B: [facility] Repository Number: [id number] BEXAR [id number] [place] Date:1040-74-98AV [address] 0197[address]Tel: [phone] [address] [phone] (HP) [address]MA: 11/25/2017 FCO L Primary FCO L [facility]B: Insurance:[facility]B: [facility] [id number] Repository [facility] Number: [facility] [id number], Date:Plan Name:[place] [id number]: [facility]45429Ohx: (HP) (HD) 11/25/2017 Secondary FCO L [place] Insurance:[facility]: [facility] [id number] Repository MedicaidPolicy [place] Number: ST [address] [id number] [address], Date:Plan [place] [address]Kzh: Name:[facility] [address] [place] [address] () [id number]: 11/20/2017 FCO L Primary FCO L [place] [address] [address] Insurance:[facility]: [facility] [id number], Number: Repository [place] [address]Quv: [id number] Date:9157-90-84DG BOX (HP) [address] [address]FL: 11/20/2017 Secondary FCO L [place] Insurance:[facility]: [facility] [id number] Hospital Number: Repository [id number] Date:0047-93-98FD [address] [place] [address]KY: 11/20/2017 Tertiary NOT GIVENUNK Ilia Insurance:SELF PAY [facility] Number: Effective Repository Date:2017-11-20 11/18/2017 FCO L Primary FCO L [place] [id number] S Insurance:[facility]: [facility] [id number], Number: Repository [place] [address]Rdd: [id number] Date:1317-03-75NO BOX () [address] 7[address]01[address]WP: 11/18/2017 Secondary FCO L [place] Insurance:[facility]: [facility] [id number] Hospital Number: Repository [id number] Date:5292-38-59HT [address] [address]HY: 11/18/2017 Tertiary NOT GIVENUNK [place] Insurance:SELF PAY [facility] Number: Effective Repository Date:2017-11-18 11/18/2017 FCO L Primary FCO L [facility]: Insurance:[facility]: Three Repository Number: [id number] [address] [id number] [place] Date:0177-68-08FO [address] [address]Dlm: [phone] 1420188 [phone] (HP) [address]JD: 11/15/2017 FCO L Primary FCO L [place] [id number] S Insurance:[facility]: [facility] [id number], Number: Repository [place] [address]Apb: [id number] Date:1636-06-90PB BOX () [address], [place] [address]ES: 11/15/2017 Secondary FCO L Ilia Insurance:[facility]: [facility] [id number] Hospital Number: Repository [id number] Date:3875-23-61MK [address] [place] [address]XN: 11/15/2017 Tertiary NOT GIVENUNK Ilia Insurance:SELF PAY [facility] Number: Effective Repository Date:2017-10-25 11/13/2017 FCO L Primary FCO L Ilia [id number] S Insurance:[facility]: [facility] [id number], Number: Repository [place] [address]Qcg: [id number] Date:4196-46-99HZ BOX () [address] [place] [address]II: 11/13/2017 Secondary FCO L [place] Insurance:[facility]: [facility] [id number] Hospital Number: Repository [id number] Date:0616-66-38TM [address] [place] [address]DE: 11/13/2017 Tertiary NOT GIVENUNK [place] Insurance:SELF PAY [facility] Number: Effective Repository Date:2017-11-13 11/11/2017 FCO L Primary FCO L [place] [id number] S Insurance:[facility]: [facility] [id number], Number: Repository [place] [address]Xiv: [id number] Date:5461-65-84XB BOX () [address] [place] [address]BJ: 11/11/2017 Secondary FCO L [place] Insurance:[facility]: [facility] [id number] Hospital Number: Repository [id number] Date:8272-98-03IA [address] [place] [address]NS: 11/11/2017 Tertiary NOT GIVENUNK [place] Insurance:SELF PAY [facility] Number: Effective Repository Date:2017-11-11 11/06/2017 FCO L Primary FCO L [place] [id number] S Insurance:[facility]: [address], Number: Repository [place] [address]Vjv: [id number] Date:4021-53-32QW BOX () [address] [address]KQ: 11/06/2017 Secondary NOT GIVENUNK Ilia Insurance:SELF PAY [facility] Number: Effective Repository Date:2017-11-06 11/04/2017 FCO L Primary FCO L Ilia [id number] S Insurance:MEDICAL OCONTODOB: [address], Number: Repository [place] [id number]: [id number] Date:3280-52-11DG BOX () [address] [address]MB: 11/04/2017 Secondary FCO L [place] Insurance:[facility]: [facility] [id number] Hospital Number: Repository [id number] Date:3448-65-87YB [address] [place] [address]TA: 11/04/2017 Tertiary NOT GIVENUNK Ilia Insurance:SELF PAY [facility] Number: Effective Repository Date:2017-11-04 10/24/2017 FCO L Primary FCO L Ilia [id number] S Insurance:[facility]: [address], Number: Repository [place] [id number]: [id number] Date:8844-21-36RA BOX () [address] [place] [address]RQ: 10/24/2017 Secondary FCO L [place] Insurance:[facility]: [facility] [id number] Hospital Number: Repository [id number] Date:3328-70-03TV [address] [place] [address]GJ: 10/24/2017 Tertiary NOT GIVENUNK [place] Insurance:SELF PAY [facility] Number: Effective Repository Date:2017-10-09 10/24/2017 FCO L Primary FCO L Ilia [id number] S Insurance:[facility]: [facility] [id number], Number: Repository [place] [id number]: [id number] Date:8488-45-98WO BOX () [address] [place] [address]GK: 10/24/2017 Secondary FCO L Ilia Insurance:[facility]: [facility] [id number] Hospital Number: Repository [id number] Date:6763-58-79MI [address] [place] [address]JU: 10/24/2017 Tertiary NOT GIVENUNK Ilia Insurance:SELF PAY [facility] Number: Effective Repository Date:2017-10-24 10/23/2017 FCO L Primary FCO L [place] [id number] S Insurance:[facility]: [facility] [id number], Number: Repository [place] [id number]: [id number] Date:1758-57-18TY BOX () [address] [place] [address]KS: 10/23/2017 Secondary FCO L [place] Insurance:[facility]: [facility] [id number] Hospital Number: Repository [id number] Date:2517-36-16DJ [address] [place] [address]NV: 10/23/2017 Tertiary NOT GIVENUNK [place] Insurance:SELF PAY [facility] Number: Effective Repository Date:2017-10-23 10/22/2017 FCO L Primary FCO L [place] [id number] S Insurance:MEDICAL OCONTODOB: [facility] [id number], Number: Repository [place] [id number]: [id number] Date:9713-36-62UR BOX () [address] 7[address]4701[address]WP: 10/22/2017 Secondary FCO L [place] Insurance:[facility]: [facility] [id number] Hospital Number: Repository [id number] Date:8400-48-62MR [address] [place] [address]TP: 10/22/2017 Tertiary NOT GIVENUNK Ilia Insurance:SELF PAY [facility] Number: Effective Repository Date:2017-10-22 2017 FCO L Primary FCO L [place] [id number] S Insurance:[facility]: [facility] [id number], Number: Repository [place] [address]Nhe: [id number] Date:6197-44-37RT BOX () [address] 7124701[address]WP: 2017 Secondary FCO L [place] Insurance:MEDICAIDPol MARTINDOB: [facility] Number: [id number] Hospital [id number] Repository Date:2017-10-15 2017 Tertiary NOT GIVENUNK [place] Insurance:SELF PAY [facility] Number: Effective Repository Date:2017 2017 FCO L Primary FCO L [place] [id number] S Insurance:MEDICAL OCONTODOB: [facility] [id number], Number: Repository [place] [address]Wdj: [id number] Date:1837-78-29YF BOX (HP) [address] [address]TV: 2017 Secondary FCO L Ilia Insurance:MEDICAIDPol MARTINDOB: [facility] Number: [id number] Hospital [id number] Repository Date:2017-10-15 2017 Tertiary NOT GIVENUNK [place] Insurance:SELF PAY [facility] Number: Effective Repository Date:2017-10-15 2017 FCO L Primary FCO L [facility]: Insurance:[facility]: Three Repository Number: [id number] KING [id number] [place] Date:4973-56-11WC [address] [address]Rpd: [phone] 6037[place] 1420142 [phone] (HP) [address]FB: 10/17/2017 FCO L Primary FCO L [facility]B: Insurance:[facility]: [facility] [id number] Repository [facility] Number: [facility] [id number] [address], Date:Plan Name:[address] [address]Xox: [place] [address]Otq: (HP) (QJ) 10/17/2017 FCO L Primary FCO L [place] [address] S Insurance:[facility]: [facility] [id number], Number: Repository [place] [address]Fzi: [id number] Date:5290-01-64OA BOX (HP) [address] [address]LW: 10/17/2017 Secondary FCO L [place] Insurance:[facility]: [facility] [id number] Hospital Number: Repository [id number] Date:6153-21-83OE [facility] [place] [address]JT: 10/17/2017 Tertiary NOT GIVENUNK Ilia Insurance:SELF PAY [facility] Number: Effective Repository Date:2017-10-17 10/16/2017 FCO L Primary FCO L [facility]: Insurance:MMOPolicy OCONTODOB: Three Repository Number: [id number] BEXAR [id number] [place] Date:8254-61-98FW[place] [address]Tel: [phone] 7784[place] [phone] (IB) [address]WI: 10/15/2017 FCO L Primary FCO L [place] [address] S Insurance:[facility]B: [facility] [id number] Hospital [id number], Number: Repository [place] [address]Ige: [id number] Date:3180-52-82OD BOX (XK) [address] [address]SP: 10/15/2017 Secondary FCO L [place] Insurance:MEDICAIDPol MARTINDOB: [facility] Number: [id number] Hospital [id number] Repository Date:2017-10-03 10/15/2017 Tertiary NOT GIVENUNK [place] Insurance:SELF PAY [facility] Number: Effective Repository Date:2017-10-15 10/15/2017 FCO L Primary FCO L [facility]: Insurance:MMOPolicy OCONTODOB: Three Repository Number: [id number] KING [id number] [place] Date:8687-26-42VS [place] 7489[address]Tel: [phone] 1942[facility] [address] [phone] (QS) [address]CY: 10/14/2017 FCO L Primary FCO L [place] [id number] S Insurance:MEDICAL OCONTODOB: [facility] [id number], Number: Repository [place] [address]Ege: [id number] Date:6881-09-41NO BOX (HP) [address] [address]PZ: 10/14/2017 Secondary FCO L [place] Insurance:[facility]: [facility] [id number] Hospital Number: Repository [id number] Date:6982-74-71PK [address], [place] [address]XO: 10/14/2017 Tertiary NOT GIVENUNK [place] Insurance:SELF PAY [facility] Number: Effective Repository Date:2017-10-14 10/14/2017 FCO Primary FCO University [facility]: Insurance:Medical [facility]: [facility] [id number] Repository [facility] Number: [facility] [id number] [address], Date:Plan Name:[address] [address]Mdp: [place] [address]Zye: (HP) (HP) 10/14/2017 FCO L Primary FCO L Ilia[address] Insurance:[facility]: [place] [id number], Number: Repository [place] [address]Llo: [id number] Date:8572-22-57IS BOX (HP) [address] [address]TN: 10/14/2017 Secondary FCO L [place] Insurance:MEDICAIDPol MARTINDOB: [facility] Number: [id number] Hospital [id number] Repository Date:2017-10-10 10/14/2017 Tertiary NOT GIVENUNK [place] Insurance:SELF PAY [facility] Number: Effective Repository Date:2017-10-10 10/14/2017 FCO L Primary FCO L Ilia [id number] S Insurance:[facility]: [facility] [id number], Number: Repository [place] [id number]: [id number] Date:6814-71-31CC [address] ) [address] [address]XJ: 10/14/2017 Secondary FCO L [place] Insurance:[facility]: [facility] [id number] Hospital Number: Repository [id number] Date:7549-20-66PX [address], [place] [address]GT: 10/14/2017 Tertiary NOT GIVENUNK Ilia Insurance:SELF PAY [facility] Number: Effective Repository Date:2017-10-10 10/10/2017 FCO L Primary FCO L Ilia [id number] S Insurance:[facility]: [facility] [id number], Number: Repository [place] [address]Eeh: [id number] Date:8157-23-94VT BOX () [address] [address]FY: 10/10/2017 Secondary FCO L [place] Insurance:[facility]: [facility] [id number] Hospital Number: Repository [id number] Date:2672-88-20AP [address], [place] [address]BL: 10/10/2017 Tertiary NOT GIVENUNK Ilia Insurance:SELF PAY [facility] Number: Effective Repository Date:2017-10-10 10/08/2017 FCO L Primary FCO L [place]ia [id number] S Insurance:[facility]: [facility] [id number] Hospital [id number], Number: Repository [place] [address]Wno: [id number] Date:4394-02-87UI BOX (HP) [address] [address]FJ: 10/08/2017 Secondary FCO L [place] Insurance:[facility]: [facility] [id number] Hospital Number: Repository [id number] Date:3864-40-86DL [address], [place] [address]IN: 10/08/2017 [facility] Ilia Insurance:SELF PAY [facility] Number: Effective Repository Date:2017-10-08 10/07/2017 FCO L Primary FCO L Pentecostalism [facility]: Insurance:[facility]: [facility] Number: [id number] System [facility] APT Effective S [facility] Repository [address], Date:2017-09-30 - APT [place] 2419-62-46Grdh [address], [address]Gqz: Name:[facility] [address] [address]Nfh: (AM) [address]KX: [phone] (HP) (WP) 10/07/2017 Secondary FCO L Pentecostalism Insurance:[facility]: [facility] [id number] System OPolicy Number: S [facility] Repository Effective APT Date:2017-11-15 - N7JDGIRYHHBMK, 0578-23-04Ftzw [place] Name:CD:[id number] [address]Hiv: [address], [place] [address]WP: (315) (HP) [phone] (WP) 10/04/2017 [facility]: Insurance:[facility]: [facility] [id number] Repository [facility] Number: [facility] ST [address] [id number] ST [address] [id number], Date:Plan Name:[place] [id number], [place] [address]Zos: [place] [address]Twa: (HP) (HP) 10/02/2017 [facility]: Insurance:[facility]: [facility] [id number] Repository [facility] Number: [facility] [id number] [id number], Date:Plan Name:[address], [place] [address]Vmq: [place] [address]Wnk: (HP) (HP) 10/02/2017 [facility] Insurance:[facility]: [facility] Insurance [facility] [id number] Repository MedicaidPolicy [place] Number: ST [address] [id number], Date:Plan [place] [address]Maw: Name[facility] [place] ([place]) [id number]: 10/02/2017 [facility]: Insurance:[facility]: [facility] [facility] [id number] Repository [facility] Number: [facility] [id number] [id number], Date:Plan Name:[place] [address], [place] [address]Tcn: [place] [address]Icv: (HP) (HP) 09/30/2017 [facility]: Insurance:[facility]: [facility] Repository Number: [id number] BEXAR [id number] [address] [place], [place] Date:[id number] [address], [address]Dub: [phone] [address] [address] [phone] (HP) [phone]: 09/27/2017 FCO L Primary FCO L Kimberli NEWELLB: Insurance:[facility] Mutual[facility] Number: [id number] System [facility] APT Effective S [facility] Repository [id number], Date:2017-09-18 APT [place] [id number], [address]Bdi: Name:Medical MutualPO [place] [address] [address]Ppz: (HP) [phone]: [phone] (HP) (WP) 09/23/2017 FCO L Primary FCO L Kimberli GARNETTB: Insurance:[facility] MutualPolicy Number: [id number] [facility] APT Effective S [facility] Repository [id number], Date:2017-09-20 APT [place] [id number] [id number], [address]Rfh: Name:Medical MutualPO [place] [address] [place] [address]Jql: (HP) [phone]: [phone] (HP) (WP) 09/18/2017 Primary FCO L [facility] Insurance:Medical [facility] [id number] [facility] Number: [facility] [id number] APT Date:Plan Name:[address] [address]Xni: (HP) 09/18/2017 FCO L Primary FCO L [facility]: Insurance:[facility]: Three Repository Number: [id number] BEXAR [id number] [address] [place], [place] Date:[id number] [address], [address]Dyr: [phone]) [address] [address] [phone] (HP) [phone]: 09/16/2017 FCO L Primary FCO L Pentecostalism [facility]: Insurance:[facility]: [facility] MutualPolicy Number: [id number] System [facility] APT Effective S [facility] Repository [id number], Date:2017-09-16 - APT [place] [id number] [id number], [address]Vss: Name:Medical Mutual[employer] [place] [address] [address]Bgg: (HP) [phone]: [phone] (HP) (WP) 09/12/2017 FCO L Primary FCO L Pentecostalism [facility]: Insurance:[facility]: [facility] MutualPolicy Number: [id number] System [facility] APT Effective S [facility] Repository [id number], Date:2017-09-12 - APT [place] [id number] [id number], [address]Lfz: Name:Medical MutualPO [place] [address] [address]Zfp: (HP) [phone]: [phone] (HP) (WP) 09/10/2017 FCO L Primary FCO L Kimberli GARNETTB: Insurance:[facility]: [facility] MutualPolicy Number: [id number] Effective S [address] Repository [id number], Date:2017-09-10 APT [place] [id number], [address]Wjl: Name:Medical MutualPO [place] [address] [place] [place] [address]Kkg: (HP) [phone]: [phone] (HP) (WP) 09/10/2017 FCO L Primary FCO L Pentecostalism REECEB: Insurance:[facility]: [facility] S MutualPolicy Number: [id number] Effective S [facility] Repository [id number], Date:2017-09-10 APT [place] [id number] [id number], [address]Srq: Name:Medical Mutual[employer] [place] [address] [address]Tro: (HP) [phone]: [phone] (HP) (WP) 09/10/2017 FCO L Primary FCO L Kimberli NEWELLB: Insurance:[facility]: [facility] S MutualPolicy Number: [id number] [address] Effective S [address] Repository [id number], Date:2017-09-10 APT [place] [id number] [id number], [address]Djq: Name:Medical MutualPO [place] [address] [place] [address]Pux: (HP) [phone]: [phone] (HP) (WP) 07/31/2017 FCO L Primary FCO L Pentecostalism DANYDOB: Insurance:[facility]: [facility] S MutualPolicy Number: [id number] [facility] APT Effective S [facility] Repository [id number], Date:2017-07-31 [address] [place] [id number] [id number], [address]Wob: Name:Zach MartinezMARSHAL [place] [address] [address]Dmi: (EJ) [phone]: [phone] () ()
== END 2018-07-09 19:00 | disposition home or self-care (01) ==
LOC: SP 14:00
PROVIDERS: Family Provider Family Medicine; PCP Family Medicine; Visit Provider Student in an Organized Health Care Education/Training Program
DX: C02.9 Malignant neoplasm of tongue, unspecified (principal); R13.12 Dysphagia, oropharyngeal phase
CPT/HCPCS: 92526; 92610

== ENCOUNTER 2018-10-14 08:36 | Day surgery (SDC) | payer MEDICAID, SELFPAY ==
[2018-06-30 13:58] VITALS: BMI 34.3
[2018-10-01 09:38] VITALS: BMI 29.9
--- NOTE | 2018-10-01 09:48 | HP_ITS ---
Intake Vital Signs 10/01/18 Body Mass Index (BMI) 29.9 10/01/18 Height 5 ft 5 in 10/01/18 Weight: 162 lb 10/01/18 Body Mass Index (BMI) 26.9 10/01/18 Blood Pressure 101/67 10/01/18 Blood Pressure Location Rt brachial 10/01/18 Blood Pressure Position Sitting 10/01/18 Respiratory Rate 18 10/01/18 Pulse Rate 70 10/01/18 Pulse Source Monitor 10/01/18 Temperature 97.8 F 10/01/18 Temperature Source Oral 10/01/18 Pulse Ox 96 10/01/18 Oxygen Delivery Method room air Intake Visit Reasons: screening cscope, referral from Dr. Goode Chief Complaint: Tongue cancer follow-up [employer] Required: No Is patient in pain?: No Allergies No Known Allergies Allergy (Verified 10/01/18 09:35) Medications Levothyroxine [Synthroid] 100 mcg PO DAILY 10/07/17 [History Confirmed 10/01/18] L.acidophilus-B.lactis-B.longum 460 mg (7.5-6-1.5 bill. cell) capsule 1 cap PO DAILY 10/01/18 [History Confirmed 10/01/18] duloxetine 30 mg capsule,delayed release 30 mg PO DAILY 10/01/18 [History Confirmed 10/01/18] PFSH Medical History peg tube (Acute) Cancer of base of tongue (Acute) History of hysterectomy (Acute) IBS (irritable bowel syndrome) (Acute) PEG TUB REMOVED (Acute) Thyroid disease (Acute) Surgical History History of cholecystectomy (Acute) History of hysterectomy (Acute) history PEG tube placement (Acute) history port placement (Acute) Family History Father Lung cancer Diabetes Mother Diabetes Social History Smoking Status: Former smoker alcohol intake: never substance use type: does not use HPI HPI HPI: FCO SAENZ, is a 47 F who presents to the office today for HPI HPI Surgical H&P: Yes HPI: FCO SAENZ, is a 47 F who presents to the office today for screening colonoscopy. Patient reports that she had a colonoscopy about 10 years ago and polyps were found. She has no blood in her stool or abdominal pain. 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 ROS General General: Yes fatigue; no weight change, appetite, colon cancer, breast cancer or weakness HEENT HEENT: No difficulty swallowing, eye injury, eye surgery, swollen glands or hoarseness Endo Endocrine: Yes thyroid disease; no diabetes mellitus, thyroid cancer, Hair loss, heat intolerance or cold intolerance Skin Skin: No rash or changing moles Breast Breast: No left breast lump, right breast lump, nipple discharge, breast pain, abnormal mammogram, abnormal US or breast enlargement Musc Musculoskeletal: No back problems, arthritis, rheumatoid arthritis, gout or joint pain Cardio Cardiovascular: No murmur, pacemaker, heart disease, atrial fibrillation, high blood pressure, heart attack, heart stent, palpitations, shortness of breat with exertion or chest pain Psych Psychiatric: No depression, anxiety or hearing voices Resp Respiratory: No shortness of breath, No sleep apnea, No cough, No COPD, No asthma, No emphysema, No wheezing Gastro Gastrointestinal: No abdominal pain, No nausea or vomiting, No diarrhea, No constipation, No blood in stool, No acid reflux, No hemorrhoids, No ulcers, No gallbladder problem, No black,tarry stools Leonid Hematologic: No blood thinners, No blood disorders, No bleeding, No anemia, No blood clots Neuro Neurologic: No system reviewed and no additional complaints, except as docu, No as per HPI, No abnormal walking, No abnormal hearing, No abnormal movements, No abnormal speech, No behavioral changes, No burning sensations, No confusion, No seizure-like activity, No unsteadiness, No dizziness, No localized weakness, No frequent falls, No headache(s), No lack of coordination, No loss of vision, No memory loss, No numbness, No other visual disturbances, No radiating pain, No restless legs, No sensory deficit, No fainting, No tingling, No tremor(s), No weakness, No other Exam Const General: cooperative Orientation: alert, oriented x3 Chest Breast Palpation: No nipple discharge Resp Effort & Inspection: normal respiratory effort Auscultation: clear to auscultation bilaterally Cardio Rate: regular rate Rhythm: regular rhythm Heart Sounds: no murmurs GI Inspection: non-distended Palpation: soft, nontender Assessment & Plan Problems 1. History of colon polyps Z86.010 Plan Patient has a history of colon polyps is due for colonoscopy. I explained endoscopy in detail to the patient. I explained the risks including but not limited to stroke or heart attack with anesthesia, perforation of the GI tract, bleeding, infection. I explained that any of these could necessitate further emergency surgery. The patient understands and all questions were answered sufficiently. The patient wishes to proceed with procedure. Judd Concepcion MD Pager: [facility] [address] [place] [address], [address] [place] [address] Office: Orders Orders: Colonoscopy Today Z86.010 Coding Level of Care Code Off vis,est,level 3 Diagnoses History of colon polyps Z86.010 10/01/18 0948 <Electronically signed by Judd Concepcion MD> Date Judd Concepcion MD I have re-examined the patient. There are no clinical changes since date of exam.
[2018-10-14 09:16] VITALS: BP 96/71; PULSE 65; RESP 16; TEMP 35.8; O2SAT 99; BMI 29.1
[2018-10-14 10:04] VITALS: BP 92/59; BP 96/71; PULSE 73; RESP 16; TEMP 36.4; O2SAT 99
--- NOTE | 2018-10-14 10:05 | OP.ENDO_ITS ---
10/14/2018 Gloria Goode [address] [place] [address] Re : Colonoscopy procedure for Shahnaz Garnett Dear Dr. Goode This procedure was performed on Sunday, October 14, 2018. My impressions and recommendations are as follows: Impressions : - The entire examined colon is normal on direct and retroflexion views. - No specimens collected. Recommendations : - Discharge patient to home. - Resume previous diet. - Continue present medications. - Repeat colonoscopy in 10 years for screening purposes. My findings are described in the full procedure note, which is enclosed. If I can be of further assistance, please feel free to contact me at Doctor phone number(s): , Work: . Sincerely, Judd Concepcion MD 10/14/2018 10:05:04 AM This report has been signed electronically.
[2018-10-14 10:10] VITALS: BP 92/54; BP 96/71; PULSE 67; RESP 16; O2SAT 99
[2018-10-14 10:15] VITALS: BP 96/71; BP 97/61; PULSE 67; RESP 16; O2SAT 100
[2018-10-14 10:22] VITALS: BP 96/71; BP 99/66; PULSE 58; RESP 16; TEMP 36.4; O2SAT 100
[2018-10-14 10:50] VITALS: BP 96/71
== END 2018-10-14 10:50 | disposition home or self-care (01) ==
LOC: EN 08:37 → AC 08:37
PROVIDERS: Family Provider Family Medicine; PCP Family Medicine; Referring Provider Family Medicine; Visit Provider Surgery
PROC: 0DJD8ZZ Inspection of Lower Intestinal Tract, Via Natural or Artificial Opening Endoscopic (ICD-10-PCS; CPT 45378; principal; 2018-10-14 09:50)
DX: Z12.11 Encounter for screening for malignant neoplasm of colon (principal); Z86.010 Personal history of colon polyps; E07.9 Disorder of thyroid, unspecified; Z87.891 Personal history of nicotine dependence
CPT/HCPCS: 45378; J7120

== ENCOUNTER → 2018-10-23 13:37 | Outpatient (CLI) | payer MEDICAID, SELFPAY ==
[2018-06-30 13:58] VITALS: BMI 34.3
[2018-07-03 13:09] VITALS: BMI 29.8
[2018-10-14 09:16] VITALS: BMI 29.1
--- NOTE | 2018-10-23 13:39 | RAD_ITS ---
STUDY: SWALLOWING STUDY REASON FOR EXAM: Female, 48 years old. Dysphagia. TECHNIQUE: The examination was performed with Speech Pathology in attendance. Under fluoroscopic observation, the patient ingested thin barium, thick barium, barium pudding, and barium coated cracker. FLUOROSCOPY TIME: 1:56 minutes/seconds. 1709 images obtained. RADIOLOGIST INVOLVEMENT: Radiologist was present and providing direct supervision. COMPARISON: None. FINDINGS: The following was observed during swallowing of the various mixtures of barium: Thin Barium: There was no evidence of aspiration or laryngeal penetration. Thick Barium: There was no evidence of aspiration or laryngeal penetration. Barium Pudding: There was no evidence of aspiration or laryngeal penetration. Barium Coated Cracker: There was no evidence of aspiration or laryngeal penetration. RAD/Swallowing Function w/Video IMPRESSION: Normal tailored barium swallow study. No evidence of increased risk for aspiration. The swallow study findings were discussed with the patient by the speech pathologist at the conclusion of the examination. Please see speech pathology report for more information and recommendations. Electronically Signed: Ricky Martell, at 15:18 EDT , Service support ,
--- NOTE | 2018-10-23 14:14 | SP.MBSS_ITS ---
PRIMARY / SECONDARY DIAGNOSIS: oropharyngeal dysphagia (R13.12) REFERRING PHYSICIAN: Dr. Pierce Pascal CURRENT DIET: soft textures/thin liquids DENTITION: new upper dentures, endentulous on bottoms MENTAL STATUS: WNL RESPIRATORY STATUS: O2 via room air PREVIOUS MODIFIED BARIUM SWALLOW STUDY: 05/21/[address] [facility] REASON FOR REFERRAL: Follow-up modified barium swallow study for post irradiation changes to swallow function. MEDICAL HISTORY: The patient is a 48/F with past medical history significant for malignant neoplasm of tongue, s/p chemoradiation (11/05/2017 to 12/23/2017); lymph node metastasis, dysphagia requiring PEG tube placement (now removed), and former tobacco user. STUDY FINDINGS: Patient participated in a Modified Barium Swallow (MBS) study on 10/23/2018. Dr. Martell was the radiologist present for this evaluation. This study was recorded in the lateral view and images were sent to PACs for storage. The following consistencies were presented to this patient for analysis of oropharyngeal swallow function: thin liquid, nectar thick liquid, pudding, and a regular textured, Michelle Doone cookie. Results of the MBS are as follows: PENETRATION / ASPIRATION SCALE (GAVIRIA): 1 = does not enter airway 2 = enters airway/above vocal folds/ejected 3 = enters airway/above vocal folds/not ejected 4 = enters airway/contacts vocal folds/ejected 5 = enters airway/contacts vocal folds/not ejected 6 = enters airway/below vocal folds/ejected 7 = enters airway/below vocal folds/not ejected despite effort 8 = enters airway/below vocal folds/no effort PENETRATION / ASPIRATION SCALE (SCORE): 1) thin liquid via teaspoon =1 2) thin liquid via teaspoon = 1 3) thin liquid via single small sip from cup = 1 4) thin liquid via single large sip from cup = 1 5) thin liquid via sequential sips from cup = 1 6) nectar thick liquid via cup = 1 7) pudding = 1 8) cookie = 1 9) thin liquid via sequential sips from straw = 3 IMPRESSION: mild oropharyngeal dysphagia (R13.12) ORAL PHASE CHARACTERIZED BY: LABIAL SEAL: no labial escape TONGUE CONTROL DURING BOLUS MANIPULATION: cohesive bolus between tongue to palatal seal BOLUS PREPARATION / MASTICATION: slow prolonged chewing/mashing with complete recollection BOLUS TRANSPORT / LINGUAL MOTION: brisk tongue motion ORAL RESIDUE: trace residue lining oral structures PHARYNGEAL PHASE CHARACTERIZED BY: INITIATION OF PHARYNGEAL SWALLOW: bolus head in valleculae at first hyoid excursion SOFT PALATE ELEVATION: no bolus between soft palate and pharyngeal wall LARYNGEAL ELEVATION: partial superior movement of thyroid cartilage/partial approximation of arytenoids cartilage to epiglottic petiole ANTERIOR HYOID EXCURSION: partial anterior movement EPIGLOTTIC MOVEMENT: complete epiglottic inversion LARYNGEAL VESTIBULE CLOSURE AT HEIGHT OF SWALLOW: complete laryngeal vestibule closure with no air/contrast in laryngeal vestibule PHARYNGEAL STRIPPING WAVE: pharyngeal stripping wave present / complete PHARYNGOESOPHAGEAL SEGMENT OPENING: partial distension and partial duration; partial obstruction of flow TONGUE BASE RETRACTION:narrow column of contrast between tongue base and posterior pharyngeal wall PHARYNGEAL RESIDUE: trace residue within or on pharyngeal structures ESOPHAGEAL PHASE CHARACTERIZED BY: ESOPHAGEAL BOLUS CLEARANCE IN THE UPRIGHT POSITION: complete clearance; esophageal coating DIET TEXTURE RECOMMENDATIONS: Will recommend a soft textured, thin liquid diet. COMPENSATORY STRATEGIES RECOMMENDED: Will recommend reduced bolus valoume, reduced rate of intake, avoid straws, alternate bites and sips, upright 90 degrees during PO intake and remain upright 30-60 minutes after, and medications one at a time with liquid chaser (patient prefers hot or warm drinks with pills). 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 Oral phase marked by prolonged mastication with Michelle Doone shortbread cookie. The patient is endentulous on bottom and reports upper dentures are new to her as she is still getting use to them. No oral spillage noted. Trace oral residue remained with liquid chaser effective at clearing. Pharyngeal phase primarily marked by slight reduction laryngeal elevation and hyoid excursion. Penetration noted above the vocal cords that did not completely eject with sequential sips from straw. Aspiration was not present with any of the trials completed this date. RECOMMENDATIONS: The patient requires intensive skilled speech-language intervention targeting diet texture management, compensatory strategy training, oropharyngeal strengthening exercises, and education on oral care targeting xerostomia. Would consider a repeat modified barium swallow study at annual intervals for assessment of swallow function for potential post irradiation changes. Results and recommendations were discussed with the Patient immediately following MBSS completion, with the Patient verbalizing understanding and agreement with all recommendations and education provided. IMAGE COUNT: [id number] Odilia Becerril M.A., [facility] [employer] Speech Language Pathologist [facility] [address] [place] [email or web address] [phone]
== END ==
PROVIDERS: Family Provider Family Medicine; PCP Family Medicine; Referring Provider Student in an Organized Health Care Education/Training Program; Visit Provider Student in an Organized Health Care Education/Training Program
DX: C02.9 Malignant neoplasm of tongue, unspecified (principal)
CPT/HCPCS: 74230; 92611

== ENCOUNTER 2018-10-29 09:54 | Emergency (ER) | payer MEDICAID, SELFPAY ==
[2018-06-30 13:58] VITALS: BMI 34.3
[2018-10-29 09:57] VITALS: BP 125/70; PULSE 80; RESP 17; TEMP 36.6; O2SAT 100; BMI 29.5
--- NOTE | 2018-10-29 10:13 | MRI_ITS ---
STUDY: MRI BRAIN WITH AND WITHOUT CONTRAST REASON FOR EXAM: Female, 48 years old. Three-week history of right mastoid pain. Palpable lump behind right ear. History of throat cancer on right one year ago. TECHNIQUE: Standardized multiplanar fat and water weighted pulse sequences were obtained. 15 IV Dotarem was administered for the contrast portion of the examination. COMPARISON: None. FINDINGS: Normal size of the ventricles and extra-axial spaces for the patient's age. Normal white matter tracts of the supratentorial brain. Normal bilateral basal ganglia. Normal thalami. There is no extra-axial fluid accumulation. Normal flow voids within the major intracranial circulation suggesting patency by spin echo criteria. Normal venous enhancement. There is no enhancing intra-axial or extra-axial abnormality. Normal sella turcica, pituitary gland, infundibular stalk, optic chiasm and hypothalamus. Normal tectal plate and pineal gland. Normal midbrain, rickey and medulla. Normal cerebellum. Normal basal cisterns. Normal bilateral temporal bones. Normal bilateral internal auditory canals. No demonstrated orbital abnormality, within the constraints of a routine brain study. Normal visualized paranasal sinuses. Normal calvarium and skull base. Normal visualized soft tissue structures. Normal visualized upper cervical spine. MRI/Brain W/WO Contrast IMPRESSION: Normal unenhanced and enhanced MRI of the brain. Electronically Signed: Sly Gil MD at 12:10 EDT , Service support ,
[2018-10-29 10:17] VITALS: TEMP 36.6; BMI 29.5
[2018-10-29 10:37] LABS: Absolute Lymphocyte Count 0.55 X10^3/ul (0.83-4.51); Absolute Neutrophil Count 4.3 X10^3/uL (2.0-7.7); Basophil# 0.01 X10^3/uL; Basophil% 0.2 % (0-1); Differential Indicated SCAN CRITERIA MET; Eosinophils% 1.9 % (0-5); Hematocrit 41.8 % (37-47); Lymphocyte # 0.55 X10^3/ul (4.0); Lymphocyte % 10.6 % (19-41); Mean Corp Hgb Conc 33.5 g/gl (32-36); Mean Corpuscular Hgb 32.3 pg (27.0-32.0); Mean Corpuscular Volume 96.5 fL (81-99); Mean Platelet Vol. 9.5 fl (6.2-12.0); Monocyte# 0.27 X10^3/uL; Monocyte% 5.2 % (0-10); Neutrophil # 4.25 X10^3/uL (2.7-7.7); Neutrophil % 82.1 % (47-70); POSITIVE COUNT NO; POSITIVE DIFFERENTIAL YES; POSITIVE MORPHOLOGY NO; Platelet Count 220 K/mm3 (150-450); RBC Distribution Width CV 12.9 % (11.6-14.6); Red Blood Count 4.33 M/mm3 (4.2-5.4); White Blood Count 5.2 K/mm3 (4.4-11.0)
[2018-10-29 10:42] LABS: Anion Gap 7 (5-15); BUN 12 mg/dL (7-18); BUN/Creat Ratio 17.5 RATIO (10-20); Calcium,Total 9.5 mg/dL (8.5-10.1); Chloride 104 mmol/L (98-107); Creatinine, Serum 0.68 mg/dL (0.55-1.02); EST Glomerular Filtration Rate 98 mL/min (>60); Est Glom Filt Rate - Afr Amer 118 mL/min (>60); Estimated Creatinine Clearance 80.02 ml/min; Glucose 94 mg/dL (74-106); Potassium 4.2 mmol/L (3.5-5.1); Sodium Level 141 mmol/L (136-145)
[2018-10-29] MEDS: Ondansetron 4 MG/2 ML Vial IV (10:49)
[2018-10-29] MEDS: Morphine 4 MG/ML Syringe IV (10:49)
--- NOTE | 2018-10-29 12:52 | ED.VISSUMM ---
- ER Visit Summary Date of Service: 10/29/18 Chief Complaint: [Right sided head pain] History of Present Illness: The patient is a 48 F [Zentz to the emergency department with right-sided head pain that started to 3 days ago. Patient denies any trauma to her head. Patient has an area over the right mastoid is very tender to touch. Patient was seen at emergency room in [place] last evening and had a CT scan of her brain that was unremarkable. Patient was seen by her primary care physician today and was referred to the emergency department for emergent MRI to evaluate because of her pain further. Patient gives history of prior throat cancer and that is in remission. Her last chemo and radiation was about a year ago. Patient denies any fevers. Denies weight loss.] Physical Examination: [HEENT-PERRLA, EOMI. Cranial nerves II through XII grossly intact. TMs clear. Mucous membranes moist. No adenopathy. Patient has some faint erythema over the area of the right mastoid with tenderness to palpation. I do not appreciate any masses. No rashes noted. Cardiovascular-regular rate and rhythm without murmur or ectopy Lungs-clear to auscultation, chest wall stable without crepitus or subcu emphysema Abdomen-normoactive bowel sounds, soft, nontender, no rebound or rigidity, no peritoneal signs. Neuro ctpa-iazucr-fipk and heel vail testing within normal limits, negative Romberg, negative pronator drift, fundi benign. Extremities-intact ?4, normal range of motion, normal pulses, atraumatic] Test Results: [CBC with differential obtained was normal. Chemistries were normal. MRI with and without contrast of the brain was unremarkable. No abnormalities of the soft tissues noted. No MR or eye abnormalities noted of the brain or sinuses.] Emergency Department Course and Treatment: [Patient was medicated with morphine and Zofran.] Treatment Plan: [She will be given a prescription for [place] for pain and advised to follow-up with primary care physician 3 to 5 days.] Disposition: [Discharged home in stable condition] Impression: [Right scalp pain-etiology uncertain] This note was generated with [employer] dictation software. It may contain incorrect words, spelling, and punctuation that were not noted in review of the chart prior to signing ED Disposition - Plan for ED Patient: Referrals: [facility] [address] Doctor,Out of [Primary Care Provider] -
--- NOTE | 2018-10-29 12:55 | ED.DCSUM_ITS ---
- ER Visit Summary Date of Service: 10/29/18 Chief Complaint: [Right sided head pain] History of Present Illness: The patient is a 48 F [Zentz to the emergency department with right-sided head pain that started to 3 days ago. Patient denies any trauma to her head. Patient has an area over the right mastoid is very tender to touch. Patient was seen at emergency room in [place] last evening and had a CT scan of her brain that was unremarkable. Patient was seen by her primary care physician today and was referred to the emergency department for emergent MRI to evaluate because of her pain further. Patient gives history of prior throat cancer and that is in remission. Her last chemo and radiation was about a year ago. Patient denies any fevers. Denies weight loss.] Physical Examination: [HEENT-PERRLA, EOMI. Cranial nerves II through XII grossly intact. TMs clear. Mucous membranes moist. No adenopathy. Patient has some faint erythema over the area of the right mastoid with tenderness to palpation. I do not appreciate any masses. No rashes noted. Cardiovascular-regular rate and rhythm without murmur or ectopy Lungs-clear to auscultation, chest wall stable without crepitus or subcu emphysema Abdomen-normoactive bowel sounds, soft, nontender, no rebound or rigidity, no peritoneal signs. Neuro ihap-bkkppq-upka and heel vail testing within normal limits, negative Romberg, negative pronator drift, fundi benign. Extremities-intact ?4, normal range of motion, normal pulses, atraumatic] Test Results: [CBC with differential obtained was normal. Chemistries were normal. MRI with and without contrast of the brain was unremarkable. No abnormalities of the soft tissues noted. No MR or eye abnormalities noted of the brain or sinuses.] Emergency Department Course and Treatment: [Patient was medicated with morphine and Zofran.] Treatment Plan: [She will be given a prescription for [place] for pain and advised to follow-up with primary care physician 3 to 5 days.] Disposition: [Discharged home in stable condition] Impression: [Right scalp pain-etiology uncertain] This note was generated with [employer] dictation software. It may contain incorrect words, spelling, and punctuation that were not noted in review of the chart prior to signing ED Disposition - Plan for ED Patient: Referrals: [facility] Doctor,Out of [Primary Care Provider] -
--- NOTE | 2018-10-29 12:56 | DCINST.ED_ITS ---
ED Disposition - Plan for ED Patient: Instructions: ED Cephalgia Unspecified Prescriptions: Hydrocodone Bitart/Apap 5-325 [[place] 5MG-325MG] 1 tab PO Q4H PRN PRN 2 Days #10 tab PRN Reason: Pain Referrals: [facility],Out of [Primary Care Provider] - 3-5 Days
[2018-10-29 13:04] VITALS: BP 137/63; PULSE 75; RESP 16; O2SAT 95
== END 2018-10-29 13:05 | disposition home or self-care (01) ==
LOC: ED 10:59
PROVIDERS: Emergency Provider Emergency Medicine; Family Provider Family Medicine
DX: R51 Headache (principal); Z87.891 Personal history of nicotine dependence
CPT/HCPCS: 70553; 80048; 85025; 96374; 96375; 99283; A9575; A4216; J2405

== ENCOUNTER → 2018-12-29 12:15 | Outpatient (CLI) | payer MEDICAID, SELFPAY ==
[2018-06-30 13:58] VITALS: BMI 34.3
[2018-12-29 12:15] VITALS: BMI 29.5
--- NOTE | 2018-12-29 12:24 | RAD_ITS ---
STUDY: X-RAY CHEST REASON FOR EXAM: Female, 48 years old. Tongue cancer TECHNIQUE: Frontal and lateral views of the chest. COMPARISON: 10/18/2017 FINDINGS: The lungs are clear and expanded. There is no demonstrated pleural abnormality. Normal size heart. Normal mediastinum and kaveh. Normal visualized pulmonary arteries. Normal visualized aortic arch and descending thoracic aorta. Normal visualized thoracic spine. Normal visualized ribs, clavicles, and shoulders. Cholecystectomy clips. RAD/Chest PA and Lateral IMPRESSION: Normal x-ray examination of the chest. Electronically Signed: Kenny Quiros MD at 21:11 EDT Tel , Service support ,
== END ==
PROVIDERS: Family Provider Family Medicine; PCP Family Medicine; Referring Provider Internal Medicine Hematology & Oncology; Visit Provider Internal Medicine Hematology & Oncology
DX: C02.9 Malignant neoplasm of tongue, unspecified (principal)
CPT/HCPCS: 71046

== ENCOUNTER → 2019-06-27 15:22 | Outpatient (CLI) | payer OTHER, SELFPAY ==
[2018-06-30 13:58] VITALS: BMI 34.3
[2019-03-30 11:28] VITALS: BMI 30.4
--- NOTE | 2019-06-27 15:26 | RAD_ITS ---
STUDY: X-RAY CHEST REASON FOR EXAM: Female, 48 years old. throat CA 2018 with chemo and radiation -- h/o smoker 10 + years, quit in 2018 -- follow up TECHNIQUE: PA and lateral views of the chest. COMPARISON: 12/29/2018. FINDINGS: The lungs are clear and expanded. There is no demonstrated pleural abnormality. Normal size heart. Normal mediastinum and kaveh. Normal visualized pulmonary arteries. Normal visualized aortic arch and descending thoracic aorta. Normal visualized thoracic spine. Normal visualized ribs, clavicles, and shoulders. There is no demonstrated abnormality of the visualized soft tissue structures of the upper abdomen. RAD/Chest PA and Lateral IMPRESSION: Normal x-ray examination of the chest. Electronically Signed: Leslie Chappell MD at 0:10 EST , Service support ,
== END ==
PROVIDERS: Visit Provider Internal Medicine Hematology & Oncology
DX: C02.9 Malignant neoplasm of tongue, unspecified (principal); C77.9 Secondary and unspecified malignant neoplasm of lymph node, unspecified
CPT/HCPCS: 71046

== ENCOUNTER → 2019-11-23 12:48 | Outpatient (CLI) | payer OTHER, SELFPAY ==
[2018-06-30 13:58] VITALS: BMI 34.3
[2019-10-01 11:21] VITALS: BMI 32.1
--- NOTE | 2019-11-23 13:05 | SP.MBSS_ITS ---
PRIMARY / SECONDARY DIAGNOSIS: Dysphagia (R12.12) REFERRING PHYSICIAN: Dr. Pascal CURRENT DIET: regular soft textures/thin liquids DENTITION: upper/lower dentures MENTAL STATUS: WFL for participation in MBS RESPIRATORY STATUS: PREVIOUS MODIFIED BARIUM SWALLOW STUDY 10/23/18 - mild oropharyngeal dysphagia - soft textures/thin liquids w/ reduced bolus volume, reduced rate if intake, avoid straws, remain upright 30-60 minutes intake, medications one at a time w/ liquid chaser, repeat MBS at yearly intervals recommended to assess for post irradiation changes in swallow function 05/21/18 - mild oropharyngeal dysphagia - soft textures/thin liquids w/ reduced bolus volume, reduced rate if intake, avoid straws, remain upright 30-60 minutes intake, medications one at a time w/ liquid chaser, repeat MBS at yearly intervals recommended to assess for post irradiation changes in swallow function REASON FOR REFERRAL: referral received for yearly objective assessment of swallow function under fluoroscopy for determination of post irradiation changes in swallow function which may necessitate additional dysphagia intervention. Pt reports recurrence of thrush 2 weeks prior w/ pin prick sensation to lingual surface and additional c/o of sore throat when it rains. Denies any changes in swallow function since last MBS completed 10/23/18. 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 Results of the MBS are as follows: OBJECTIVE ASSESSMENT OF SWALLOW FUNCTION (QUANTITATIVE PER TRIAL): PENETRATION / ASPIRATION SCALE (GAVIRIA): 1 = does not enter airway 2 = enters airway/above vocal folds/ejected 3 = enters airway/above vocal folds/not ejected 4 = enters airway/contacts vocal folds/ejected 5 = enters airway/contacts vocal folds/not ejected 6 = enters airway/below vocal folds/ejected 7 = enters airway/below vocal folds/not ejected despite effort 8 = enters airway/below vocal folds/no effort VIDEOFLOROSCOPIC SCALE SCORE (GAVIRIA): Grade I = aspiration of material that has penetrated into the laryngeal vestibule, intact cough reflex Grade II = aspiration < 10 % of the bolus, intact cough reflex Grade III = aspiration of < 10 % of the bolus, reduced cough reflex or aspiration of > 10 % of the bolus, intact cough reflex Grade IV = aspiration of > 10 % of the bolus, reduced cough reflex PENETRATION / ASPIRATION SCALE (SCORE) WITH VIDEOFLOROSCOPIC SCALE SCORE: 1.Thin liquid 5mL teaspoon: 1 2.Thin liquid 5mL teaspoon: 2 3.Thin liquid cup: 2 4.Thin liquid cup: 5, cued cough not effective to eject scant penetration; contrast lined vocal folds 5.Puddin 6.Puddin 7.Thin liquid cup: 1 8.Thin liquid cup: 1 9.Thin liquid straw: 1 10.Cookie: 1 11.Thin liquid cup: 1 12.Thin liquid cup: 1 13.Thin liquid cup sequential: 1 MODIFIED BARIUM SWALLOW IMPAIRMENT PROFILE (MBSImP) LABIAL SEAL: no labial escape TONGUE CONTROL DURING BOLUS MANIPULATION: liquid bolus escape to floor of mouth BOLUS PREPARATION / MASTICATION: slow prolonged chewing/mashing with complete recollection BOLUS TRANSPORT / LINGUAL MOTION: slowed tongue motion ORAL RESIDUE: residue collection on oral structures INITIATION OF PHARYNGEAL SWALLOW: bolus head at posterior laryngeal surface of epiglottis at first hyoid excursion SOFT PALATE ELEVATION: trace column of contrast/air between soft palate and pharyngeal wall LARYNGEAL ELEVATION: partial superior movement of thyroid cartilage/partial approximation of arytenoids cartilage to epiglottic petiole ANTERIOR HYOID EXCURSION: partial anterior movement EPIGLOTTIC MOVEMENT: partial epiglottic inversion LARYNGEAL VESTIBULE CLOSURE AT HEIGHT OF SWALLOW: incomplete laryngeal vestibule closure with narrow column of air/contrast in laryngeal vestibule PHARYNGEAL STRIPPING WAVE: pharyngeal stripping wave present / diminished PHARYNGOESOPHAGEAL SEGMENT OPENING: partial distension and partial duration; partial obstruction of flow TONGUE BASE RETRACTION: narrow column of contrast between tongue base and posterior pharyngeal wall PHARYNGEAL RESIDUE: collection of residue within or on pharyngeal structures ESOPHAGEAL BOLUS CLEARANCE IN THE UPRIGHT POSITION: complete clearance; esophageal coating EFFECTS OF TREATMENT STRATEGIES ATTEMPTED: Double swallow = EFFECTIVE Liquid chaser = EFFECTIVE Reduced bolus size = EFFECTIVE Reduced rate of intake = EFFECTIVE Removal of straw = NO IMPACT INTERPRETATION OF RESULTS Patient presents with mild to moderate oropharyngeal dysphagia (R13.12) secondary to late effects of chemoradiation (11/05/2017 to 12/23/2017; VMAT technique) received for treatment of stage II (cT2-3N1Mx) 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 The oral phase is marked by prolonged mastication and slowed tongue motion for oral bolus transfer w/ impaired oral clerance. Residue retention was effectively cleared w/ additional swallows (elicited independently) and/or w/ use of liquid wash. The pharyngeal phase is marked by reduced tongue base to posterior pharyngeal wall contact resulting in insufficient pharyngeal pressure for bolus clearance. Delayed pharyngeal swallow onset timing resulting in suboptimal bolus location upon swallow onset contributing to penetration of thin liquid inconsistently. Insufficient hyolaryngeal excursion w/ incomplete epiglottic inversion and incomplete laryngeal vestibule closure resulted in laryngeal vestibule penetration of thin liquid inconsistently along w/ pharyngeal residue retention w/in the valleculae and lining the posterior pharyngeal wall. Laryngeal vestibule penetration, although noted to be of a scant amount and inconsistent in occurrence, was not ejected and eventually made contact to line the vocal folds. A cued cough was not effective to expel contrast from the laryngeal vestibule. Reduced posterior pharyngeal wall stripping wave and reduced distention/duration of PES opening additionally contributed to pharyngeal residue retention. Residue clearance improved w/ additional swallows and us of a liquid wash. RECOMMENDATIONS DIET TEXTURE RECOMMENDATIONS: soft textures/thin liquids COMPENSATORY STRATEGIES RECOMMENDED: effortful/multiple swallows as needed, liquid chaser, reduced bolus volume, reduced rate of intake, seated upright at 90 degrees during PO intake, remain upright for 30-60 minutes post meal (GERD precaution) NEED FOR REPEAT MBS: This patient would benefit from ongoing yearly assessments of swallow function under fluoroscopy to assess function and monitor for changes as she is at increased risk for decline in swallow function s/p chemoradiation. 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 ADDITIONAL COMMENTS/RECOMMENDATIONS: Results were discussed w/ the patient following MBS completion w/ patient education provided re: plan to further analyze images obtained this date and compare w/ previous studies for identification of changes in swallow function which may necessitate further skilled dysphagia intervention as an outpatient. Pt verbalized understanding of education provided and need to follow up w/ referring physician for determination of need additional dysphagia.
== END ==
PROVIDERS: Referring Provider Student in an Organized Health Care Education/Training Program; Visit Provider Student in an Organized Health Care Education/Training Program
DX: R13.12 Dysphagia, oropharyngeal phase (principal)
CPT/HCPCS: 74230; 92611

== ENCOUNTER → 2020-02-03 09:51 | Outpatient (CLI) | payer OTHER, SELFPAY ==
[2018-06-30 13:58] VITALS: BMI 34.3
[2019-10-01 11:21] VITALS: BMI 32.1
--- NOTE | 2020-02-03 12:30 | SP.MBSS_ITS ---
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 PER TRIAL): PENETRATION / ASPIRATION SCALE (GAVIRIA): 1 = does not enter airway 2 = enters airway/above vocal folds/ejected 3 = enters airway/above vocal folds/not ejected 4 = enters airway/contacts vocal folds/ejected 5 = enters airway/contacts vocal folds/not ejected 6 = enters airway/below vocal folds/ejected 7 = enters airway/below vocal folds/not ejected despite effort 8 = enters airway/below vocal folds/no effort VIDEOFLOROSCOPIC SCALE SCORE (GAVIRIA): Grade I = aspiration of material that has penetrated into the laryngeal vestibule, intact cough reflex Grade II = aspiration < 10 % of the bolus, intact cough reflex Grade III = aspiration of < 10 % of the bolus, reduced cough reflex or aspiration of > 10 % of the bolus, intact cough reflex Grade IV = aspiration of > 10 % of the bolus, reduced cough reflex PENETRATION / ASPIRATION SCALE (SCORE) WITH VIDEOFLOROSCOPIC SCALE SCORE: Thin liquid - 5 mL tsp.: 1 Thin liquids via cup (single sip): 1 Thin liquids via cup (single sip): 1 Thin liquids via cup (single sip): 3 Thin liquids via straw (single sip): 1 Thin liquids via straw (sequential swallows): 3 Pudding via spoon: 1 Thin liquids via straw (single sip): 3 Thin liquids via straw (single sip): 1 Regular textured cookie: 1 Thin liquids via straw (single sip): 1 - Oral Phase Labial Seal: No Labial Escape Tongue Control During Bolus Hold: Cohesive bolus between tongue to palatal seal Bolus Preparation/Mastication: Timely and efficient chewing and mashing Bolus Transport/Lingual Motion: Brisk tongue motion Oral Residue: Trace residue lining oral structures - Pharyngeal Phase Initiation of Pharyngeal Swallow: Bolus head in valleculae Soft Palate Elevation: No bolus between soft palate and pharyngeal wall Laryngeal Elevation: Partial superior movement thyroid cart/partial apprx aryt- epig petiole Anterior Hyoid Excursion: Partial anterior movement Epiglottic Movement: Complete inversion Laryngeal Vestibule Closure at Height of Swallow: Incomplete; narrow column of air/contrast in laryngeal vestibule Pharyngeal Stripping Wave: Present - diminished Pharyngoesophageal Segment Opening: Parital distension and partial duration; parital obstruction of flow Tongue Base Retraction: Wide column of contrast between tongue base & post. 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) - Recommendations Diet: Regular Textures, Thin Liquids Comment: Liquid chaser at reasonable intervals, consider cutting tougher textures into bite sized pieces, seated upright at 90 degrees during PO intake, remain upright for 30-60 minutes post meal (GERD precaution), medications one at a time with a liquid chaser Recommend Repeat Modified Barium Swallow: Yes Comment: Yearly follow up for initial 5 years following irradiation Need for Skilled Speech Therapy Services: Yes Comment: The results and recommendations were discussed with the Patient immediately following MBS completion, with the Patient verbalizing understanding and agreement with all recommendations and education provided. - Image Count: [phone] - Status Active ST Patient: Not Active - Contact Information [facility] Speech Therapy:: Scott Andersen M.A., ADRIEL-ORTHOTIC/PROSTHETIC CLINICIAN, CBIS MBSImP Certified, LSVT Certified [facility] Speech-Language Pathology Department Email: [email or web address]
== END ==
PROVIDERS: Referring Provider Student in an Organized Health Care Education/Training Program; Visit Provider Student in an Organized Health Care Education/Training Program
DX: R13.12 Dysphagia, oropharyngeal phase (principal); Z85.819 Personal history of malignant neoplasm of unspecified site of lip, oral cavity, and pharynx; Z92.3 Personal history of irradiation
CPT/HCPCS: 74230; 92611

== ENCOUNTER 2020-02-10 10:00 | Outpatient (RCR) | payer MEDICARE, OTHER, SELFPAY ==
[2018-06-30 13:58] VITALS: BMI 34.3
[2019-10-01 11:21] VITALS: BMI 32.1
--- NOTE | 2019-12-16 10:00 | SOAP_ITS ---
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 every 3 weeks, switched to weekly carboplatin and paclitaxel for cycle 2 due to tinnitus). She reports persisting symptoms suggestive of pharyngeal dysmotility / stasis during ingestion of solids and dry semisolids, stating she ?can?t get stuff down?, avoiding breads and more rough / dry textures, which has substantially increased meal times, and requires frequent liquid chasers during meals. She also reports intermittent nasal reflux with thin liquids, more so if she needs to cough, though occasionally with initial swallow. She reports continued weight loss over the past year (baseline 11/07/2017 at 198.8 lbs.; current 171.4), she denies any issues with appetite or early satiety (feeling full after few bites) and no issues with nausea or recurrent emesis. She reports increasing hypogeusia (reduced taste) and near ageusia (absence of taste), with dysgeusia (abnormal / unpleasant taste) during recent bout of oral candidiasis (October of this year, treated with Nystatin). She further reports recurrence of odynophagia with recent bout of oral candidiasis, which has recently returned (-11/03 post deglutition). Of note, she reports that she is experiencing a fluctuating presence of mild to moderate odynophagia (pain during swallowing) paired with aphonia (complete loss of voice) that can last upwards of 2-3 weeks. She has noticed that this occurs somewhat in conjunction with changes in weather patterns (moist, warm weather). She currently presents with a hoarse vocal quality that was typical during the previous intervention cycle. She reports persistent xerostomia (dry mouth) that also has worsened somewhat over the past year, which she has attempted to manage through oral rinses, biotin, and continuous water consumption. She reports some mandibular ?tightness? and crepitus suggesting trismus. 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 The Patient appears cognitively intact, with no reported cognitive based complications (does report mild impairments during chemotherapy interventions which have subsided as expected). The Patient?s vocal quality is clearly impaired, with the Patient reporting almost complete aphonia particularly upon waking which somewhat improves throughout the day; overall the Patient reports reductions in vocal quality post irradiation. 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 10/23/2018 MBS revealed mild oropharyngeal dysphagia with transient shallow penetration of thin liquids. 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 FUNCTIONAL STATUS ASSESSMENT RESULTS: LUGO INDEX OF INDEPENDENCE IN ACTIVITIES OF DAILY LIVING: BATHIN DRESSIN TOILETIN TRANSFERRIN CONTINENCE: 1 FEEDIN TOTAL SCORE: 6/6 GISELL-MONROE INSTRUMENTAL ACTIVITIES OF DAILY LIVING SCALE (IADL): AAA/8 ABILITY TO USE THE TELEPHONE: 1 SHOPPIN FOOD PREPARATION: 1 HOUSEKEEPIN LAUNDRY: 1 MODE OF TRANSPORTATION: 1 RESPONSIBILITY FOR OWN MEDICATION: 1 ABILITY TO HANDLE FINANCES: 1 TOTAL SCORE: 8/8 FUNCTIONAL AMBULATION CATEGORY (FAC): FAC SCORE: 5 (ambulator- independent) FAC DESCRIPTION: subject can ambulate independently on nonlevel and level surfaces, stairs, and inclines. SUPPLEMENTARY DYSPHAGIA ASSESSMENT RESULTS (SCALES / PROM): REFLUX SYMPTOM INDEX (RSI) RSI TOTAL SCORE: 24 RSI INDICATIONS: a score of >13 may indicate significant reflux [employer] (WHO) ORAL MUCOSITIS SCALE: WHO ORAL MUCOSITIS SCALE GRADE: grade 0 WHO ORAL MUCOSITIS SCALE GRADE DESCRIPTION: no objective findings, function irrelevant [facility] XEROSTOMIA QUESTIONNAIRE: TOTAL SCORE: 40/80 SCORE INTERPRETATION: higher scores indicate worse xerostomia RTOG RADIATION MORBIDITY SCORING CRITERIA FOR XEROSTOMIA: LATE EFFECTS: grade II GRADE DESCRIPTION: moderate dryness of mouth; poor response on stimulation SIALORRHEA SCORING SCALE (SSS): SSS SCORE: 1 (of 9) SSS DESCRIPTION: dry, never drools SCALE OF SUBJECTIVE TOTAL TASTE ACUITY (STTA): STTA GRADE: grade II STTA GRADE DESCRIPTION: moderate loss of taste acuity, and sometimes inconvenient in daily life; noxious or unpleasant taste PERFORMANCE STATUS SCALE FOR HEAD & NECK CANCER PATIENTS (PSS-HN): NORMALCY OF DIET: 60 ? dry bread and crackers PUBLIC EATIN ? no restriction of place, but restricts diet when in public UNDERSTANDABILITY OF SPEECH: 100 ? always understandable PSS-HN TOTAL SCORE: 235/300 [facility] DYSPHAGIA INVENTORY (MDADI): GLOBAL: 05/31 PHYSICAL: EMOTIONAL: FUNCTIONAL: COMPOSITE SCORE: 49 MEAN POINT SCORE: 2.45 FINAL SCORE: 46.55 MDADI INTERPRETATION: poor ORAL MOTOR / MODIFIED CRANIAL NERVE ASSESSMENT: TRIGEMINAL NERVE (CNV): no clinically significant abnormalities observed FACIAL NERVE (CNVII): no clinically significant abnormalities observed GLOSSOPHARYNGEAL NERVE (CNIX): abnormal; slight right palatal asymmetry with weakness VAGUS NERVE (CNX): no clinically significant abnormalities observed HYPOGLOSSAL NERVE (CNXII): no clinically significant abnormalities observed FACIAL & CERVICAL STRUCTURES: mild ?puffiness? along the left mandible; dense/stiffness within the cervical regions suggesting of post irradiation fibrosis. MANDIBULAR FUNCTIONING: abnormal; mild crepitus within the temporomandibular joint during movement DENTITION: upper dentures in place, edentulous lower status ORAL MUCOSA / GINGIVA: xerostomia (grade II) with recent treatment for oral candidiasis; no current signs of oral candidiasis, though she reports a recurrence of odynophagia which presented with prior case of candidiasis. COUGH SUFFICIENCY: weakened volitional cough intensity suggesting dystussia; VOCAL QUALITY: intermittent bouts of anomia reported, that last upwards of 1- 3 weeks; currently demonstrating mild vocal hoarseness. INTER-INCISOR DISTANCE (IID) AVERAGE IID: >4.0 cm IID GRADE: grade 0 IID GRADE DESCRIPTION: symptoms of OSMF without trismus CLINICAL ASSESSMENT OF SWALLOW FUNCTION (QUANTITATIVE): REPETITIVE SALIVA SWALLOWING TEST (RSST): RSST RESULT: pass RSST DESCRIPTION: able to elicit 2 dry swallows within 30 seconds. 1OZ WATER SWALLOWING TEST (1OZ WST): 1OZ WST RESULTS: normal ? 1 (of 5) 1OZ WST DESCRIPTION: single swallow without coughing during ingestion DRINKING EPISODES: none 3OZ WATER SWALLOWING TEST (3OZ WST): 3OZ WST RESULTS: normal DRINKING EPISODES: none FIGUEROA ASSESSMENT OF SWALLOWING ABILITY ? CANCER (MASA-C): MASA ASPIRATION SEVERITY SCORE: 176 MASA SEVERITY SCORE DESCRIPTION: mild impairment MASA-C DYSPHAGIA RISK RATING: definite; strong evidence for disorder CLINICAL ASSESSMENT OF SWALLOW FUNCTION (QUALITATIVE): ORAL PREPARATORY PHASE: slightly prolonged mastication attributed to lower edentulous status and post irradiation xerostomia; sufficient anterior oral containment during manipulation; preserved management of breathing / bolus formation without disrupted E ? S ? E pattern ORAL TRANSITIONAL PHASE: sufficient bolus transportation with some effort required with dry textures attributed to post irradiation xerostomia; no lingual discoordination (no tremor / undulations) noted upon digital palpation; no signs of bolus consolidation impairments with sufficient oral clearance; no signs or symptoms of premature posterior bolus loss. PHARYNGEAL PHASE: multiple swallows during trials of smaller / rather manageable bolus volumes suggestive of pharyngeal dysmotility (verified under fluoroscopy) further complicated by recurrence of odynophagia following deglutition (ranging from 1-6/10); reduction in hyolaryngeal excursion and duration upon digital palpation possibly suggestive of suboptimal laryngeal vestibule closure / pressure / duration (verified under fluoroscopy); no obvious findings suggestive of pharyngeal phase delay / dyssynchrony; no subjective signs of velopharyngeal impairments; no signs or symptoms of penetration / aspiration throughout trials. ESOPHAGEAL PHASE: esophageal phase appears unremarkable, though noted high RSI score reported (24) COMPLICATING FACTORS AND NOTABLE FINDINGS: complicating factors include persistent post irradiation xerostomia, lack of lower dentition and / or dental prosthetics; lack of clarity regarding recurrence of odynophagia, though may be associated with recent issues with candidiasis? CLINICAL ASSESSMENT OF SWALLOW FUNCTION (SEVERITY GRADING): SWALLOWING PERFORMANCE SCALE (SPS): SPS SCORE DESCRIPTION: 4 (mild to moderate) SPS SCORE DESCRIPTION: mild-moderate impairment with need for therapeutic precautions: mild dysfunction in oral and pharyngeal stage; requires modified diet and therapeutic precautions to minimize aspiration risk RECOMMENDATIONS FOR INTERVENTION: The Patient requires intensive skilled speech-language intervention targeting diet texture management and training / implementation of recommended compensatory strategies; training and implementation of recommended oropharyngeal strengthening exercises to facilitate improved pharyngeal contraction and laryngeal valving secondary to post irradiation dysphagia and radiation induced fibrosis; training and implementation of a Trismus based exercise program to promote improved and sustained (post-irradiation) mandibular functioning; training and implementation of a home oral care protocol to reduce the effects of xerostomia and improve / maintain the integrity of the oral mucosa reducing the risk of aspiration related pulmonary complications; continued Patient education regarding post- irradiation dysphagia and associated symptomology; with recommendations for further diagnostic assessment of the swallow function under fluoroscopy via Modified Barium Swallow (MBS) study; with goal adjustment pending MBS completion. POST ASSESSMENT EDUCATION: The results and recommendations were discussed with the Patient immediately following completion of the assessment, with the Patient verbalizing understanding and agreement with all recommendations and education provided. We discussed factors impacting effects of aspiration, to include: the quantity of aspiration, the depth of aspiration (trachea or distal airways), and the physical properties of the aspirate. We discussed consequences of oropharyngeal dysphagia, to include pulmonary complications from tracheobronchial aspiration; potential for airway obstruction / asphyxiation; inadequate oral intake because of dysphagia; reduced liquid intake resulting in dehydration; reduced caloric intake resulting in unintentional and potentially medically complicating loss of weight; impairment in mental and physical condition to include depression and deterioration in the quality of life. higher risk for social isolation / anxiety / depression, increased disability rates, and lengthening of healing; complications in overall course of care with later discharge from acute admissions (if admitted) / increased length of hospitalizations, increased likelihood for discharge to long term, and overall worse rehabilitation outcomes; and increased risk for mortality / . We discussed the Patients risk for continual changes and continual decline in swallow functioning / dysphagia severity due to post irradiation fibrosis (currently impacting pharyngeal phase functioning) We discussed recommendations for prophylactic oropharyngeal strengthening / range of motion exercises to reduce the effects / progression of post irradiation induced oropharyngeal dysphagia associated with head and neck cancer, with handouts provided outlining the recommended exercises; further / continual training is highly indicated to ensure proper execution and maintenance to the program. We discussed recommendations for continued execution of mandibular range of motion stretching and exercise to reduce the effects / progression of post irradiation trismus and facilitate improved / maintained mandibular functioning, with handouts provided outlining the recommended exercises; further / continual training is indicated to ensure proper execution and maintenance to the program. I provided brief overview of signs and symptoms of aspiration, with recommendations for the Patient to further discuss symptoms with the Patients primary care provider. DIET TEXTURE RECOMMENDATIONS: Will recommend a regular ? soft textured (IDDSI: 6), thin liquid diet (IDDSI: 0) diet RECOMMENDED COMPENSATORY STRATEGIES: Moisture with all solid textures, liquid chaser at reasonable intervals, consider cutting tougher textures into bite sized pieces, seated upright at 90 degrees during PO intake, remain upright for 30-60 minutes post meal (GERD precaution), medications one at a time with a liquid chaser. FUNCTIONAL OUTCOMES: OUTCOME 1: the Patient will tolerate the least restrictive means of nutrition to facilitate adequate hydration / nutrition with optimum safety and efficiency of swallowing function during P.O. intake without overt signs and symptoms of aspiration. OUTCOME 2: the Patient will demonstrate and utilize recommended oropharyngeal strengthening exercises to facilitate improved post irradiation pharyngeal contraction and resulting pharyngeal motility, and hyolaryngeal excursion and resulting laryngeal vestibule closure, with minimal cueing and prompting provide by the clinician, across 2 out of 3 sessions. OUTCOME 3: the Patient will demonstrate and utilize recommended mandibular range of motion stretching and exercise within the Patients clinical and home based program to improve and maintain overall mandibular functioning and oral preparatory functioning reducing the effects of trismus, with minimal cueing and prompting provide by the clinician, across 2 out of 3 sessions. OUTCOME 4: the Patient will participate in continual Patient education regarding post-irradiation dysphagia and associated symptomology to facilitate improved awareness and insight into the Patients current and anticipated dysphagia related complications and potential impact on the Patients overall medical stability. OUTCOME 5: the Patient will participate in a repeat Modified Barium Swallow (MBS) study to objectively assess the Patient?s oropharyngeal swallowing function (when clinically appropriate), to determine the least restrictive means of nutrition, to objectively assess the effectiveness of previously identified strategies / precautions, and to identify appropriate intervention approaches / strategies to implement during treatment sessions at the supervised level. OUTCOME 6: goal adjustment as needed post MBS Scott Andersen M.A., ADRIEL-ORACLE DATABASE MANAGER, CBIS MBSImP Certified, LSVT Certified [facility] Speech-Language Pathology Department Email: [email or web address]
--- NOTE | 2020-05-06 12:48 | HP.SP.DC_ITS ---
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 Prior to the most recent intervention cycle, the patient had participated in two prior MBS (05/21/2018, 10/23/2018) which both revealed mild oropharyngeal dysphagia (DIGEST Grade 1) with transient shallow penetration of thin liquids. She had participated in a 1 year follow up MBS on 11/23/2019 which revealed mild to moderate dysphagia with intermittent penetration and incomplete ejection of thin liquids. The patient had reported reoccurrences of her dysphagia symptomology, to include sensations of dysmotility as well as a chronic vocal hoarseness with intermittent aphonia. The patient participated in intervention targeting diet texture management and training / implementation of recommended compensatory strategies; training and implementation of recommended oropharyngeal strengthening exercises to facilitate improved pharyngeal contraction and laryngeal valving secondary to post irradiation dysphagia and radiation induced fibrosis; training and implementation of a Trismus based exercise program to promote improved and sustained (post-irradiation) mandibular functioning; training and implementation of a home oral care protocol to reduce the effects of xerostomia and improve / maintain the integrity of the oral mucosa reducing the risk of aspiration related pulmonary complications; continued Patient education regarding post-irradiation dysphagia and associated symptomology; with recommendations for further diagnostic assessment of the swallow function under fluoroscopy via Modified Barium Swallow (MBS) study; with goal adjustment pending MBS completion. Following collaboration with the [facility] medical team, she was additionally placed on Pentoxifylline Er (400mg TID) and Pilocarpine (5mg TID). As intervention progressed, she reported improved dysphagia related symptomology suggesting improved DARS functioning and improving vocal quality. She has been completing all oropharyngeal exercises and trismus-based exercises dedicatedly as recommended. The patient participated in a repeat MBS on 02/03/2020 which revealed mild post irradiation dysphagia (SPS:3; DIGEST: grade I) with transient shallow penetration with incomplete ejection and moderate pharyngeal dysmotility, which was a noticeable improvement from her prior study. Unfortunately, the patient did not show for her last 3 sessions, with multiple attempts to contact her through email and phone. Per policy will be discharged from the caseload at this time. Given the rather significant laps between intervention sessions, she would require a re- assessment prior to re-initiation of intervention. I would gladly re-initiate i ntervention as needed moving forward. Furthermore, she is considered to be at a high risk for continual changes and possible decline in swallow functioning / dysphagia severity post irradiation (late effects of radiation fibrosis can occur upwards of 40 years post treatment). She will benefit from continual monitoring and yearly follow up modified barium swallow studies for at least 5 years post irradiation.
== END 2020-02-10 19:00 | disposition home or self-care (01) ==
LOC: SP 10:00
PROVIDERS: Referring Provider Student in an Organized Health Care Education/Training Program; Visit Provider Student in an Organized Health Care Education/Training Program
DX: R13.10 Dysphagia, unspecified (principal)
CPT/HCPCS: 92526; 92610

== ENCOUNTER → 2020-08-02 11:42 | Outpatient (CLI) | payer OTHER, SELFPAY ==
[2018-06-30 13:58] VITALS: BMI 34.3
[2020-02-16 13:39] VITALS: BMI 28.3
--- NOTE | 2020-08-02 11:47 | RAD_ITS ---
HISTORY: TONGUE CANCER WITH LYMPH NODE METASTASIS EXAM: XR Chest 2 Views: COMPARISON: June 27, 2019 FINDINGS: # of images incl. paperwork: 2 Cholecystectomy clips Lungs are clear. Heart is not enlarged. No acute osseous pathology perceived. Pulmonary vascularity is distinct. No effusions. RAD/Chest PA and Lateral IMPRESSION: Normal. at 0630 Reported and signed by: Winston Orellana MD Electronically Signed: Winston Orellana MD at 6:29 EST Tel , Service support ,
== END ==
PROVIDERS: Visit Provider Internal Medicine Hematology & Oncology
DX: C01 Malignant neoplasm of base of tongue (principal); C77.9 Secondary and unspecified malignant neoplasm of lymph node, unspecified
CPT/HCPCS: 71046

== ENCOUNTER → 2021-11-28 | Outpatient (CLI) | payer MEDICARE, MEDICAID, SELFPAY ==
[2018-06-30 13:58] VITALS: BMI 34.3
--- NOTE | 2021-11-28 13:00 | CT_ITS ---
STUDY: LOW DOSE CT LUNG CANCER SCREENING REASON FOR EXAM: Female, 51 years old. Lung cancer screening -- 40 pk yr hx;former smoker;asymptomatic RADIATION DOSAGE (If Supplied By Facility): CTDIvol = ( 2.39 ) mGy, DLP = ( 75.94 ) mGycm TECHNIQUE: No contrast was administered. Low dose technique was utilized (average mAS-38 and kVp 120). 1.25 mm axial source images with a slice interval of 1.25-mm were reconstructed in lung windows. 2.5 mm axial source images with a slice interval of 2.5-mm were reconstructed in lung windows. 5.0 mm axial source images with a slice interval of 5.0-mm were reconstructed in soft tissue windows. COMPARISON: None. NODULES: No suspicious nodule is seen. Emphysema: No evidence of emphysema. Endobronchial lesion: Unremarkable Aorta: Unremarkable. CORONARY ARTERIES: Coronary artery calcification is not seen. Heart: Unremarkable Pulmonary artery: Unremarkable Mediastinal nodes: Unremarkable Other chest and abdominal findings: CT/Low Dose CT Lung Screening IMPRESSION: Lung-RADS category 2 - Continue annual screening with LDCT in 12 months. IMPORTANT NOTES FOR USE: ACR Lung-RADS Version 1.1 Assessment Categories Release Date: 2018 Category: Coded 0-4 bases on nodule(s) with highest degree of suspicion. Negative screen is defined as categories 1 and 2; a positive screen is defined as categories 3 and 4. Category 3 and 4A nodules that are unchanged on interval CT should be coded as category 2, and individuals returned to screening in 12 months. Category 4X: Category 3 or 4 nodules with additional imaging findings that increase the suspicion of lung cancer, such as spiculation, GGN that doubles in size in 1 year, enlarged lymph notes, etc. Category Modifiers: S (significant finding unrelated to lung cancer) Electronically Signed: Ricky Martell MD at 13:33 EDT ,
--- NOTE | 2021-11-28 13:14 | BI_ITS ---
MAMMOGRAPHY - BILATERAL SCREENING REASON FOR EXAM: Female, 51 years old. Routine annual screening examination. PERTINENT HISTORY: Non-contributory. TECHNIQUE: Digital bilateral breast mayco (3D mammographic acquisition) in the CC and MLO projections. 2-D mediolateral oblique (MLO) and craniocaudad (CC) views of both breasts were obtained. CAD: Full Field Digital Mammography with Computer Added Detection was performed. COMPARISON: Comparison is made with prior outside examination dated 11/03/2020. FINDINGS: Breast Composition: The breasts are heterogeneously dense, which may obscure small masses. There are no dominant masses or suspicious calcifications. There is a 3.3 mm well-defined nodule in the deep central aspect of the right breast. Correlation with ultrasound is recommended for further evaluation. Small bilateral axillary lymph nodes. No other significant abnormalities are identified. BI/SCRN MAMM (CAD)W/MAYCO BILAT IMPRESSION: 3.3 mm well-defined nodule in the deep central aspect of the right breast. Correlation with ultrasound is recommended. ASSESSMENT CATEGORY: BIRADS Category 0: Incomplete. Need additional imaging evaluation. A letter regarding these results will be sent to the patient by the facility within 30 days. Approximately 10% of breast cancers are not detected by mammography. A normal mammogram should not delay biopsy of a clinically suspicious abnormality. [id number] Electronically Signed: Ricky Martell MD at 14:48 EDT ,
== END | disposition home or self-care (01) ==
LOC: OPBI 12:59
PROVIDERS: PCP Nurse Practitioner Family; Referring Provider Internal Medicine Hematology & Oncology; Visit Provider Internal Medicine Hematology & Oncology
DX: Z12.31 Encounter for screening mammogram for malignant neoplasm of breast (principal); C77.9 Secondary and unspecified malignant neoplasm of lymph node, unspecified; N63.10 Unspecified lump in the right breast, unspecified quadrant; Z12.2 Encounter for screening for malignant neoplasm of respiratory organs; Z87.891 Personal history of nicotine dependence; Z85.810 Personal history of malignant neoplasm of tongue
CPT/HCPCS: 71271; 77063; 77067

== ENCOUNTER → 2021-11-30 | Outpatient (CLI) | payer MEDICARE, MEDICAID, SELFPAY ==
[2018-06-30 13:58] VITALS: BMI 34.3
--- NOTE | 2021-11-30 12:22 | US_ITS ---
STUDY: ULTRASOUND BREAST - RIGHT REASON FOR EXAM: Female, 51 years old. Abnormal screening mammogram. TECHNIQUE: Axial and longitudinal images of the RIGHT breast were performed with a high resolution ultrasound transducer. # OF IMAGES: 54 COMPARISON: Comparison is made with prior mammogram dated 11/28/2021. FINDINGS: RIGHT Breast: The entire aspect of the right breast was examined with ultrasound. Heterogeneously dense fibroglandular tissue. No sonographic abnormality is seen. Additional mammographic views will be obtained. US/Breast Limited Unilateral IMPRESSION: Unremarkable targeted sonogram. Additional mammographic views will be obtained. ASSESSMENT CATEGORY: BIRADS Category 0: Incomplete. Need additional imaging evaluation. A letter regarding these results will be sent to the patient by the facility within 30 days. Electronically Signed: Ricky Martell MD at 14:30 EDT ,
--- NOTE | 2021-11-30 13:40 | BI_ITS ---
MAMMOGRAPHY - UNILATERAL DIAGNOSTIC: RIGHT BREAST REASON FOR EXAM: Female, 51 years old. Abnormal screening mammogram. PERTINENT HISTORY: Non-contributory. TECHNIQUE: 90 degree lateral view as well as compression spot views of the right breast were obtained. CAD: Full Field Digital Mammography with Computer Added Detection was performed. COMPARISON: Comparison is made with prior mammogram dated 11/28/2021. Persistent 5.2 mm well-defined nodule in the deep central aspect of the right breast. No sonographic abnormality was seen on the ultrasound. Correlation with MRI is recommended. FINDINGS: Breast Composition: The breasts are heterogeneously dense, which may obscure small masses. Persistent 5.2 mm well-defined nodule in the deep central aspect of the right breast. No sonographic abnormality was seen on the ultrasound. Correlation with MRI is recommended. No other significant abnormalities are identified. BI/DIAG MAMM W/CAD, UNILAT IMPRESSION: Persistent 5.2 mm well-defined nodule in the deep central aspect of the right breast as described. Correlation with MRI is recommended for further evaluation. ASSESSMENT CATEGORY: BIRADS Category 0: Incomplete. Need additional imaging evaluation. A letter regarding these results will be sent to the patient by the facility within 30 days. Approximately 10% of breast cancers are not detected by mammography. A normal mammogram should not delay biopsy of a clinically suspicious abnormality. Electronically Signed: Ricky Martell MD at 14:32 EDT ,
== END | disposition home or self-care (01) ==
LOC: OPUS 12:19
PROVIDERS: PCP Nurse Practitioner Family; Visit Provider Internal Medicine Hematology & Oncology
DX: R92.8 Other abnormal and inconclusive findings on diagnostic imaging of breast (principal)
CPT/HCPCS: 76642; 77065

== ENCOUNTER → 2021-12-12 | Outpatient (CLI) | payer MEDICARE, MEDICAID, SELFPAY ==
[2018-06-30 13:58] VITALS: BMI 34.3
--- NOTE | 2021-12-12 12:35 | MRI_ITS ---
STUDY: BILATERAL BREAST MR WITHOUT AND WITH CONTRAST REASON FOR EXAM: Female, 51 years old. Deep nodule in right breast for which further workup was recommended. TECHNIQUE: Multi-sequence multi-echo imaging of both breasts was performed with a dedicated breast coil. T1-weighted and T2-weighted images were performed before the administration of contrast. T1-weighted images were also performed after the intravenous administration of 16 mL of Dotarem contrast. COMPARISON: Bilateral mammograms dated 11/28/2021, right diagnostic mammogram dated 11/30/2021 and right breast ultrasound dated 11/30/2021. FINDINGS: RIGHT BREAST: The breast tissue is fatty with minimal background enhancement. 4 mm in diameter ovoid circumscribed asymmetry in the posterior aspect of the right breast nearly 12 cm behind the nipple just in front of the chest wall. This enhancing lesion does not definitely correspond to the mammographic abnormality. This most likely represents a lymph node. There are no aggressive features. LEFT BREAST: The breast tissue is fatty with minimal background enhancement. There are no abnormal enhancing masses or areas of non-mass enhancement in the left breast. There are no enlarged or abnormal lymph nodes. There is no abnormality in the visualized regions of the chest or liver. MRI/Breast Bilateral W/O and W IMPRESSION: A 4 mm in diameter circumscribed ovoid enhancing nodule in the right breast which does not correspond to the low-density nodule on mammogram. No other abnormality noted on the breast MRI study. Since the nodule can be seen on mammogram, a six-month follow-up right diagnostic mammogram supplemented by right breast ultrasound is recommended. CATEGORY: BIRADS Category 3: Probably Benign - Short-Interval Follow-up Suggested. A letter regarding these results will be sent to the patient by the facility within 30 days. Electronically Signed: Aba Awad MD at 9:28 EDT ,
== END | disposition home or self-care (01) ==
PROVIDERS: PCP Nurse Practitioner Family; Referring Provider Internal Medicine Hematology & Oncology; Visit Provider Internal Medicine Hematology & Oncology
DX: R92.8 Other abnormal and inconclusive findings on diagnostic imaging of breast (principal)
CPT/HCPCS: 77049; A9575; A4216; C8908

== ENCOUNTER → 2022-05-31 | Outpatient (CLI) | payer MEDICARE, MEDICAID, SELFPAY ==
[2018-06-30 13:58] VITALS: BMI 34.3
--- NOTE | 2022-05-31 09:11 | US_ITS ---
STUDY: ULTRASOUND BREAST - RIGHT REASON FOR EXAM: Female, 51 years old. Abnormal diagnostic mammogram. TECHNIQUE: Axial and longitudinal images of the RIGHT breast were performed with a high resolution ultrasound transducer. # OF IMAGES: 61 COMPARISON: Comparison is made with prior mammogram done earlier in the day as well as 11/30/2021. Comparison is also made with prior MRI of the breasts dated 12/12/2021. FINDINGS: RIGHT Breast: Targeted ultrasound of the right breast was performed. There is heterogeneously dense fibroglandular tissue. No sonographic abnormality is seen. US/Breast Limited Unilateral IMPRESSION: No sonographic abnormality is seen. A repeat mammogram in 6 months is recommended. ASSESSMENT CATEGORY: BIRADS Category 3: Probably Benign - Short-Interval Follow-up Suggested. A letter regarding these results will be sent to the patient by the facility within 30 days. Electronically Signed: Ricky Martell MD at 11:06 EST ,
--- NOTE | 2022-05-31 09:11 | BI_ITS ---
MAMMOGRAPHY - UNILATERAL DIAGNOSTIC: RIGHT BREAST REASON FOR EXAM: Female, 51 years old. Six-month follow-up of a 5 mm nodule in the deep portion of the right breast. PERTINENT HISTORY: Non-contributory. TECHNIQUE: Digital unilateral breast katelyn (3D mammographic acquisition) in the CC and MLO projections. 2-D mediolateral oblique (MLO) and craniocaudad (CC) views of both breasts were obtained. CAD: Full Field Digital Mammography with Computer Added Detection was performed. COMPARISON: Comparison is made with prior study dated 11/28/2021 and 11/30/2021. FINDINGS: Breast Composition: The breasts are heterogeneously dense, which may obscure small masses. Persistent 4.2 mm well-defined nodule in the deep slightly upper central portion of the right breast. Further correlation with ultrasound is recommended. No other significant abnormalities are identified. BI/DIAG MAMM W/CAD, UNILAT IMPRESSION: Stable unilateral diagnostic mammogram. Correlation with targeted ultrasound of the right breast is recommended. ASSESSMENT CATEGORY: BIRADS Category 0: Incomplete. Need additional imaging evaluation. A letter regarding these results will be sent to the patient by the facility within 30 days. Approximately 10% of breast cancers are not detected by mammography. A normal mammogram should not delay biopsy of a clinically suspicious abnormality. Electronically Signed: Ricky Martell MD at 10:21 EST ,
== END | disposition home or self-care (01) ==
LOC: OPBI 09:07
PROVIDERS: PCP Nurse Practitioner Family; Visit Provider Internal Medicine Hematology & Oncology
DX: R92.2 Inconclusive mammogram (principal); N63.10 Unspecified lump in the right breast, unspecified quadrant
CPT/HCPCS: 76642; 77061; 77065; G0279

== ENCOUNTER → 2023-01-29 | Outpatient (CLI) | payer BC, MEDICAID, SELFPAY ==
[2018-06-30 13:58] VITALS: BMI 34.3
--- NOTE | 2023-01-29 15:34 | BI_ITS ---
MAMMOGRAPHY - BILATERAL SCREENING REASON FOR EXAM: Female, 52 years old. Routine annual screening examination. PERTINENT HISTORY: Non-contributory. TECHNIQUE: Digital bilateral breast mayco (3D mammographic acquisition) in the CC and MLO projections. 2-D mediolateral oblique (MLO) and craniocaudad (CC) views of both breasts were obtained. CAD: Full Field Digital Mammography with Computer Added Detection was performed. COMPARISON: Comparison is made with prior study of November 30, 2021 and May 31, 2022. FINDINGS: Breast Composition: The breasts are heterogeneously dense, which may obscure small masses. There are no dominant masses or suspicious calcifications. No other significant abnormalities are identified. There has been no significant change since the prior study. BI/SCRN MAMM (CAD)W/MAYCO BILAT IMPRESSION: Stable bilateral screening mammogram. Yearly follow-up mammogram recommended. (A) ASSESSMENT CATEGORY: BIRADS Category 1: Negative. A letter regarding these results will be sent to the patient by the facility within 30 days. Approximately 10% of breast cancers are not detected by mammography. A normal mammogram should not delay biopsy of a clinically suspicious abnormality. [id number] Electronically Signed: Ricky Martell MD at 8:37 EDT ,
--- NOTE | 2023-01-29 16:01 | CT_ITS ---
EXAM: CT CHEST, LUNG CANCER SCREENING WITHOUT INTRAVENOUS CONTRAST CLINICAL INDICATION: Lung cancer screening -- and gt;20 pk yr hx;former smoker;asymptomatic TECHNIQUE: Helically acquired images were obtained of the chest without intravenous contrast using low dose (LDCT) lung cancer screening protocol. This CT exam was performed using one or more of the following dose reduction techniques: automated exposure control, adjustment of the mA and/or kV according to patient size, and/or use of iterative reconstruction technique. COMPARISON: CT Lung Cancer Screening dated 11/28/2021 FINDINGS: LUNGS AND PLEURAL SPACES: Linear scarring noted within the right middle lobe. Lungs are otherwise clear. No mass. No pleural effusion or thickening. No pneumothorax. HEART: Normal. Heart size is normal. No pericardial effusion. No significant coronary artery calcifications. MEDIASTINUM: Normal. No mediastinal or hilar adenopathy. Esophagus is unremarkable. No hiatal hernia. THYROID: Normal. No thyroid nodules or calcification. BONES/JOINTS: No suspicious lytic or blastic abnormality. VASCULATURE: Normal. Thoracic aorta is non-dilated. LYMPH NODES: Normal. No enlarged lymph nodes. IMPRESSION: No evidence of a lung mass or suspicious pulmonary nodule. EXAM: CT CHEST, LUNG CANCER SCREENING WITHOUT INTRAVENOUS CONTRAST CLINICAL INDICATION: Lung cancer screening -- and gt;20 pk yr hx;former smoker;asymptomatic TECHNIQUE: Helically acquired images were obtained of the chest without intravenous contrast using low dose (LDCT) lung cancer screening protocol. This CT exam was performed using one or more of the following dose reduction techniques: automated exposure control, adjustment of the mA and/or kV according to patient size, and/or use of iterative reconstruction technique. COMPARISON: CT Lung Cancer Screening dated 11/28/2021 FINDINGS: LUNGS AND PLEURAL SPACES: Linear scarring noted within the right middle lobe. Lungs are otherwise clear. No mass. No pleural effusion or thickening. No pneumothorax. HEART: Normal. Heart size is normal. No pericardial effusion. No significant coronary artery calcifications. MEDIASTINUM: Normal. No mediastinal or hilar adenopathy. Esophagus is unremarkable. No hiatal hernia. THYROID: Normal. No thyroid nodules or calcification. BONES/JOINTS: No suspicious lytic or blastic abnormality. VASCULATURE: Normal. Thoracic aorta is non-dilated. LYMPH NODES: Normal. No enlarged lymph nodes. IMPRESSION: No evidence of a lung mass or suspicious pulmonary nodule. EXAM: CT CHEST, LUNG CANCER SCREENING WITHOUT INTRAVENOUS CONTRAST CLINICAL INDICATION: Lung cancer screening -- and gt;20 pk yr hx;former smoker;asymptomatic TECHNIQUE: Helically acquired images were obtained of the chest without intravenous contrast using low dose (LDCT) lung cancer screening protocol. This CT exam was performed using one or more of the following dose reduction techniques: automated exposure control, adjustment of the mA and/or kV according to patient size, and/or use of iterative reconstruction technique. COMPARISON: CT Lung Cancer Screening dated 11/28/2021 FINDINGS: LUNGS AND PLEURAL SPACES: Linear scarring noted within the right middle lobe. Lungs are otherwise clear. No mass. No pleural effusion or thickening. No pneumothorax. HEART: Normal. Heart size is normal. No pericardial effusion. No significant coronary artery calcifications. MEDIASTINUM: Normal. No mediastinal or hilar adenopathy. Esophagus is unremarkable. No hiatal hernia. THYROID: Normal. No thyroid nodules or calcification. BONES/JOINTS: No suspicious lytic or blastic abnormality. VASCULATURE: Normal. Thoracic aorta is non-dilated. LYMPH NODES: Normal. No enlarged lymph nodes. CT/Low Dose CT Lung Screening IMPRESSION: No evidence of a lung mass or suspicious pulmonary nodule. Lung-RADS score: 1 - Negative. Recommend continued annual screening with a low-dose CT (LDCT) in 12 months. Electronically Signed: Alejandro Hawthorne MD at 16:30 EDT ,
== END | disposition home or self-care (01) ==
PROVIDERS: PCP Nurse Practitioner Family; Referring Provider Internal Medicine Hematology & Oncology; Visit Provider Internal Medicine Hematology & Oncology
DX: Z12.31 Encounter for screening mammogram for malignant neoplasm of breast (principal); Z12.2 Encounter for screening for malignant neoplasm of respiratory organs; Z87.891 Personal history of nicotine dependence
CPT/HCPCS: 71271; 77063; 77067

== ENCOUNTER → 2024-02-04 | Outpatient (CLI) | payer BC, SELFPAY ==
[2018-06-30 13:58] VITALS: BMI 34.3
--- NOTE | 2024-02-04 12:53 | BI_ITS ---
MAMMOGRAPHY - BILATERAL SCREENING REASON FOR EXAM: Female, 53 years old. Routine annual screening examination. PERTINENT HISTORY: Non-contributory. TECHNIQUE: Digital bilateral breast mayco (3D mammographic acquisition) in the CC and MLO projections. 2-D mediolateral oblique (MLO) and craniocaudad (CC) views of both breasts were obtained. CAD: Full Field Digital Mammography with Computer Added Detection was performed. COMPARISON: Comparison is made with prior study dated January 29, 2023 and November 28, 2021. FINDINGS: Breast Composition: The breasts are heterogeneously dense, which may obscure small masses. There are no dominant masses or suspicious calcifications. No other significant abnormalities are identified. There has been no significant change since the prior study. BI/SCRN MAMM (CAD)W/MAYCO BILAT IMPRESSION: Stable bilateral screening mammogram. Yearly follow-up mammogram recommended. (A) ASSESSMENT CATEGORY: BIRADS Category 1: Negative. A letter regarding these results will be sent to the patient by the facility within 30 days. Approximately 10% of breast cancers are not detected by mammography. A normal mammogram should not delay biopsy of a clinically suspicious abnormality. [id number] Electronically Signed: Ricky Martell MD at 14:00 EDT ,
--- NOTE | 2024-02-04 13:52 | CT_ITS ---
STUDY: LOW DOSE CT LUNG CANCER SCREENING REASON FOR EXAM: Female, 53 years old. Lung cancer screening -- and gt;20 pk yr hx; former smoker; asymptomatic RADIATION DOSAGE (If Supplied By Facility): CTDIvol = ( 2.39 ) mGy, DLP = ( 68.18 ) mGycm TECHNIQUE: No contrast was administered. Low dose technique was utilized (average mAS-38 and kVp 120). 1.25 mm axial source images with a slice interval of 1.25-mm were reconstructed in lung windows. 2.5 mm axial source images with a slice interval of 2.5-mm were reconstructed in lung windows. 5.0 mm axial source images with a slice interval of 5.0-mm were reconstructed in soft tissue windows. COMPARISON: Comparison is made with prior study dated April 30, 2023. NODULES: No suspicious nodules are seen. Emphysema: Stable mild scarring in the right middle lobe. Endobronchial lesion: None Aorta: Unremarkable CORONARY ARTERIES: Coronary artery calcification is not seen. Heart: Unremarkable Pulmonary artery: Unremarkable Mediastinal nodes: Unremarkable Other chest and abdominal findings: CT/Low Dose CT Lung Screening IMPRESSION: Lung-RADS category 2 - Continue annual screening with LDCT in 12 months. IMPORTANT NOTES FOR USE: ACR Lung-RADS Version 1.1 Assessment Categories Release Date: 2018 Category: Coded 0-4 bases on nodule(s) with highest degree of suspicion. Negative screen is defined as categories 1 and 2; a positive screen is defined as categories 3 and 4. Category 3 and 4A nodules that are unchanged on interval CT should be coded as category 2, and individuals returned to screening in 12 months. Category 4X: Category 3 or 4 nodules with additional imaging findings that increase the suspicion of lung cancer, such as spiculation, GGN that doubles in size in 1 year, enlarged lymph notes, etc. Category Modifiers: S (significant finding unrelated to lung cancer) Electronically Signed: Ricky Martell MD at 14:24 EDT ,
== END | disposition home or self-care (01) ==
PROVIDERS: PCP Nurse Practitioner Family; Referring Provider Nurse Practitioner Family; Visit Provider Nurse Practitioner Family
DX: Z12.31 Encounter for screening mammogram for malignant neoplasm of breast (principal); Z12.2 Encounter for screening for malignant neoplasm of respiratory organs; Z87.891 Personal history of nicotine dependence
CPT/HCPCS: 71271; 77063; 77067

== ENCOUNTER 2024-12-22 01:17 | Emergency (ER) | payer BC, SELFPAY ==
[2018-06-30 13:58] VITALS: BMI 34.3
[2024-12-22 01:18] VITALS: BP 125/84; PULSE 98; RESP 18; TEMP 36.9; O2SAT 98; BMI 28.6
--- NOTE | 2024-12-22 01:48 | EX.ED.DYSGE1 ---
HPI History of Present Illness Chief Complaint: Seizure Informant: patient and EMS Narrative Narrative: 54-year-old female states she has not been feeling well for the last 2 or 3 days. Achy all over, malaise, subjective fevers. Like I have the flu. No cough, vomiting or diarrhea, sore throat, nasal congestion, earache, or urinary symptoms. She states tonight at work, she felt like she had the chills she went to the bathroom because she felt nauseated she vomited, and then she was tremorous and had the chills and presents here saying that she thinks she had 3 or 4 brief seizures. She thinks she may have been unconscious for 3 or 4 seconds during these episodes. She is not sure. She does remembers shaking and having the chills several times. She states it felt like she had a fever. She has a history of having seizures in the past when she has fevers, she states no one put her on antiepileptics. This has been since she had chemo and radiation for throat cancer. [facility] Medical History Hypothyroidism History of tobacco use Encounter for screening for malignant neoplasm of lung Lyme disease PEG TUB REMOVED Thyroid disease peg tube IBS (irritable bowel syndrome) Cancer of base of tongue Home Medications ?Medication ?Instructions ?Recorded ?Last Taken ?Type vitamin E 670 mg (1,000 unit) 1,000 unit PO DAILY #90 CAPSULES 08/10/20 Unknown Rx capsule bupropion HCl 150 mg 24 hr tablet, 150 mg PO DAILY 12/22/24 Unknown History extended release buspirone 30 mg tablet 30 mg PO BID 12/22/24 Unknown History cyclobenzaprine 10 mg tablet 10 mg PO DAILY PRN 12/22/24 Unknown History duloxetine 60 mg capsule,delayed 60 mg PO BID 12/22/24 Unknown History release levothyroxine 88 mcg tablet 88 mcg PO DAILY 12/22/24 Unknown History sulfamethoxazole 800 1 tab PO BID #10 TABLETS 12/22/24 Unknown Rx mg-trimethoprim 160 mg tablet Allergy/AdvReac Type Severity Reaction Status Date / Time No Known Allergies Allergy Verified 12/22/24 01:18 Family History Father Lung cancer Diabetes Mother Diabetes Surgical History History of hysterectomy history port placement history PEG tube placement History of cholecystectomy History of hysterectomy Social History Smoking Status: Former smoker alcohol intake: never substance use type: does not use ROS ROS ED Constitutional Constitutional ED: Reports body ache(s), chills, fever(s), malaise and subjective Eyes Eyes: Denies blurry vision, change in vision or diplopia ENT ENT ED: Denies ear pain, rhinorrhea or sore throat Cardiovascular Cardiovascular: Denies chest pain or palpitations Respiratory/Chest Respiratory/Chest: Denies cough or dyspnea Gastrointestinal Gastrointestinal: Reports nausea and vomiting; Denies abdominal pain or diarrhea Genitourinary Genitourinary ED: Denies dysuria or hematuria Musculoskeletal Musculoskeletal: Denies back pain or neck pain Integumentary Denies abscess or rash Neurologic Neurologic: Denies headache(s), paresthesias or weakness Psychiatric Psychiatric: Denies suicidal thoughts EXAM Physical Exam Const Vital Signs: 12/22/24 01:18 12/22/24 02:18 12/22/24 03:00 Temperature 98.4 F Temperature Source Oral Pulse Rate 98 80 77 Respiratory Rate 18 14 18 Blood Pressure 125/84 H 118/83 H 113/68 Blood Pressure Mean 97 94 83 Pulse Ox 98 100 100 Oxygen Delivery Method Room Air Room Air Room Air Positive well nourished and well developed Constitutional Narrative: Well-appearing NAD General Appearance ED: well developed and NAD HEENT Reports moist mucous membranes normocephalic and atraumatic Eyes PERRL and EOMs intact bilaterally Neck full ROM, no lymphadenopathy and supple Chest Wall inspection of chest normal and palpation of chest normal Resp normal respiratory effort and clear to auscultation bilaterally Cardio regular rate, regular rhythm and no murmurs GI non-tender and non-distended Auscultation: normoactive bowel sounds Palpation: soft Back/Spine no CVA tenderness General Back: other FROM Extremity normal to inspection General Extremety ED: Negative for edema, pulses abnormal or tenderness General Extremity: Negative for edema or pulses abnormal Neuro oriented x3, CN's II-XII intact bilaterally and no sensory deficits noted Sensorium / Orientation: awake and alert Motor Exam: strength 5/5 throughout Psych mental status grossly normal Skin no rashes or lesions noted and no wounds MDM MDM MDM Narrative Medical decision making narrative: Patient is asymptomatic other than feeling poorly right now, her vital signs are normal, and under the circumstances I think this is less consistent with true seizures and more consistent with having chills may be from fever maybe not she is afebrile 98.4 here. Do not think she needs CT of the head she is neurologically intact. We underwent a workup for source of possible fever that she does not have right now. She is no longer nauseated, we gave her half a liter of fluid while working her up. Patient did well throughout her ED visit with normal vital signs and no seizure-like activity or other symptoms. Lactate nonspecifically elevated at 2.1, this is nonspecific for having seizure activity nor necessarily for sepsis which I do not think she is. The rest of her workup is negative including COVID/influenza/RSV swab except for her urinalysis which is suggestive of infection. Given that there is no other plausible cause for her subjective fevers and chills, I am going to treat this as if it is the potential source of her malaise and illness. She was given a dose of IV Rocephin here we sent her for culture and she will be prescribed Bactrim to take for several days. She is comfortable with going home with a prescription. Lab Data Attestation: I reviewed the patient's lab results. Labs: Laboratory Results - last 24 hr 12/22/24 12/22/24 12/22/24 01:26 02:20 03:17 WBC 8.4 RBC 4.70 Hgb 14.6 Hct 45.2 MCV 96.2 MCH 31.1 MCHC 32.3 RDW Std Deviation 47.4 H RDW Coeff of Dalila 13.3 Plt Count 342 MPV 9.4 Immature Gran % (Auto) 0.400 Neut % (Auto) 83.6 H Lymph % (Auto) 9.5 L [place] % (Auto) 3.6 Eos % (Auto) 2.4 Baso % (Auto) 0.5 Absolute Neuts (auto) 7.1 Absolute Lymphs (auto) 0.80 L Nucleated RBC % 0 Sodium 140 Potassium 4.0 Chloride 102 Carbon Dioxide 24.5 Anion Gap 14 BUN 16 Creatinine 0.81 Estim Creat Clear Calc 79.09 Est GFR (MDRD) Non-Af 86 BUN/Creatinine Ratio 19.3 Glucose 180 H Lactic Acid 2.1 H* Calcium 9.1 Urine Color Yellow Urine Clarity Sl. Cloudy Urine pH 5.0 Ur Specific Rheems 1.025 Urine Protein 30 H Urine Glucose (UA) Normal Urine Ketones 5 H Urine Occult Blood 25 H Urine Nitrite Negative Urine Bilirubin Negative Urine Urobilinogen Normal Ur Leukocyte Esterase 500 H Urine RBC 0-5 SEEN Urine WBC 10-25 SEEN Ur Squamous Epith Cells 0-5 SEEN Urine Bacteria 1+ Hyaline Casts 10-25 SEEN Urine Mucus 0 SEEN Radiography Chest X-Ray - ED: 2 View, Read by ED Physician, No Acute Disease and No Infiltrates Diagnostic Testing: Clinical Impression(s) from Imaging Studies Chest X-Ray 12/22/24 02:00 IMPRESSION: No acute chest findings. Reading Location: [place] [address] Discharge Plan Triage Chief Complaint: Seizure ED Provider: Gerry Bean Dx/Rx/DC Orders Clinical Impression: UTI (urinary tract infection), Shaking chills Instructions: UTIs Prescriptions: New sulfamethoxazole-trimethoprim 800-160 mg tablet 1 tab PO BID Qty: 10 0RF No Action vitamin E 1,000 UNIT capsule 1,000 unit PO DAILY Qty: 90 1RF Rx Instructions: take one tab PO qd cyclobenzaprine 10 mg tablet 10 mg PO DAILY PRN buspirone 30 mg tablet 30 mg PO BID bupropion HCl 150 mg tablet extended release 24 hr 150 mg PO DAILY levothyroxine 88 mcg tablet 88 mcg PO DAILY duloxetine 60 mg capsule,delayed release(DR/EC) 60 mg PO BID Primary Care Provider: ASHWIN MCGILL Referrals: ASHWIN MCGILL CRNP [Primary Care Provider] - 3-5 Days if not improving Print Language: Irish Disposition Disposition: Home, Self Care
[2024-12-22 01:59] LABS: Hematocrit 45.2 % (37-47); Hemoglobin 14.6 g/dL (12.0-15.0); Immature Granulocytes Count 0.030 X10^3/uL (0.0-0.0); Mean Corp Hgb Conc 32.3 g/dL (32-36); Mean Corpuscular Volume 96.2 fL (81-99); Mean Platelet Vol. 9.4 fl (6.2-12.0); NRBC Flagged by Analyzer 0 % (0-5); Platelet Count 342 K/mm3 (150-450); RBC Distribution Width CV 13.3 % (11.6-14.6); RBC Distribution Width SD 47.4 fl (35.1-43.9); Red Blood Count 4.70 M/mm3 (4.2-5.4); White Blood Count 8.4 K/mm3 (4.4-11.0)
--- NOTE | 2024-12-22 02:00 | RAD_ITS ---
PROCEDURE: CHEST PA AND LATERAL 12/22/2024 REASON FOR EXAM: FEVER TECHNIQUE: CHEST PA AND LATERAL COMPARISON: CT 02/04/2024 FINDINGS: Normal heart size. Well inflated lungs. No consolidation, effusion or pneumothorax. RAD/Chest PA and Lateral IMPRESSION: No acute chest findings. Reading Location: [place] [address]
--- OUTSIDE RECORDS SUMMARY | 2024-12-22 02:00 | XMS RPT_ITS | CCD ---
Author Organization [facility] Care Team Providers Care Machinist Instructor Name Role Phone Felisa Abbott Unavailable Glenroy Gaitan Unavailable Felisa Abbott Unavailable Unavailable Felisa Abbott Unavailable Unavailable Glenroy Gaitan Unavailable Kirstie Hines Primary Care Provider Kirstie Hines Primary Care Provider MARIBELL WHITTEN Attending Unavaila ble Kirstie Hines Primary Care Unavailable Glenroy Gaitan Unavailable Kirstie Hines Primary Care Provider KIRSTIE HINES Referring Unavailable KIRSTIE HINES Primary Care Unavailable KIRSTIE HINES Admitting Unavailable Glenroy Gaitan MD Unavailable Spring Kirstie GU Primary Care Provider Glenroy Gaitan MD Unavailable LentnerKirstie Unavailable [phone] Unavailable Unavailable Spring Kirstie GU Primary Care Provider Glenroy Gaitan MD Unavailable Spring Kirstie GU Primary Care Provider FELISA GAITAN Attending Unavailable KIRSTIE HINES Primary Care Unavailable Isidro Wakefield MD Primary Care Pro vider Kirstie Hines Unavailable Lit James Unavailable John Mattson Unavailable CainNoel ribeirotonny Sullivan Unavailable Dr. Gloria Goode Attending Provider Chloé COMMODITY MANAGER, COMMODITY MANAGER-C Bette Attending Provider SPRING, YOLANDA THACKER Primary Care Provider Unavailable Unavailable Chloé COMMODITY MANAGER, COMMODITY MANAGER-C Bette Referring Provider Glenroy Gaitan MD Unavailable Ashu VELEZ, Isidro Brower Primary Care Pro vider Glenroy Gaitan MD Unavailable Ashu VELEZ, Isidro Brower Primary Care Pro vider HUTTIG, YOLANDA THACKER Primary Care Provider [phone] HUTTIG, YOLANDA THACKER Referring Provider FLEX Figueredo Attending Provider Dr. Gloria Goode Attending Provider Chloé COMMODITY MANAGER, COMMODITY MANAGER-C Bette Attending Provider Chloé COMMODITY MANAGER, COMMODITY MANAGER-C Bette Referring Provider Spring SENIOR SALES ASSOCIATE-Kirstie GU Primary Care Provid er Lentner, MsAdelaide Ley Referring Unavaila ble Lentner, Ms. Thacker M Primary Care Unavaila ble JOHN MATTSON Attending Unavailable Isidor Wakefield MD Unavailable Gloria Goode MD Unavailable Glenroy Gaitan MD Unavailable ISIDRO WAKEFIELD Referring Ayah vailable ISIDRO WAKEFIELD Primary Care Ayah vailable KIRSTIE HINES Primary Care Unavailable KENDAL SIMON Referring Unavaila ble FLORA, KIRSTIE Ley Primary Care Unavailable ISIDRO WAKEFIELD Primary Care Ayah vailable ASHU, ISIDRO LATRELL MOUNIR Attending Ayah vailable ASHU, ISIDRO LATRELL MOUNIR Primary Care Ayah vailable JARAD MARROQUIN Attending Unavailable ASHU, ISIDRO LATRELL MOUNIR Attending Ayah vailable ASHU, ISIDRO LATRELL MOUNIR Primary Care Ayah vailable ASHU, ISIDRO LATRELL MOUNIR Attending Ayah vailable ASHU, ISIDRO LATRELL MOUNIR Primary Care Ayah vailable JOHN MATTSON Attending Unavailable HUTTIG, KIRSTIE Primary Care Unavailable Lentner SENIOR SALES ASSOCIATE-RECORDS SUPERVISORKirstie Primary Care [facility] Primary Care Unavailable Chloé COMMODITY MANAGER, Bette Attending Unavailable Chloé COMMODITY MANAGER, Bette Referring Unavailable H[facility]TIG, [facility] Referring Unavailable Gloria Goode Attending Unavailable [facility] Primary Care Unavailable [facility] Primary Care Unavailable Chloé COMMODITY MANAGER, Bette Attending Unavailable Chloé COMMODITY MANAGER, Bette Referring Unavailable Pierce Pascal Attending [facility] Unavailable Allergies Allergy Classification Reported Allergen(s) Allergy Type Date of Onset Reaction(s) Facility (1 source) No Known Medication Allergies; Translations: [No Known Medication Allergies] Propensity to adverse reactions to drug (disorder) [facility] Repository Medications Current Medications Medication Drug Class(es) Dates Sig (Normalized) Sig (Original) albuterol 0.83 mg/ml inhalation solution (4 sources) beta2-Adrenergic Agonist Start: 06-02-2023 End: 07-02-2023 albuterol 2.5 mg /3 mL (0.083 %) nebulizer solution Indications: RSV infection Take 3 mL (2.5 mg) by nebulization every 6 hours if needed for wheezing. 30 mL 06/02/2023 Active amoxicillin 875 mg / clavulanate 125 mg oral tablet (3 sources) Penicillin-class Antibacterial Start: 10-31-2018 End: 11-10-2018 take 1 tablet by mouth twice daily amoxicillin-clavul anate (AUGMENTIN) 875-125 mg per tablet Indications: Cellulitis of scalp Take 1 (one) tablet by mouth 2 (two) times a day for 10 days . 20 tablet 0 10/31/2018 11/10/2018 Active take 1 tablet by aleksandar th three times daily amoxicillin-clavulanate (AUGMENTIN) 500- 125 mg per tablet Indications: Mass of right side of neck Take 1 tablet by mouth 3 (three) times a day. Active benzonatate 200 mg oral capsule (2 sources) Non-narcotic Antitussive Start: 05-23-2021 End: 05-30-2021 take 1 capsule by mouth three times daily as needed for cough benzonatate (TESSALON) 200 MG capsule Take 1 (one) capsule (200 mg total) by mouth 3 (three) times a day as needed for cough . 20 capsule 0 05/23/2021 05/30/2021 Active 24 hr buPROPion hydrochloride 150 mg extended release oral tablet (12 sources) Aminoketone Start: 10-24-2023 End: 02-05-2025 take 1 tablet by mouth once daily buPROPion (Wellbutrin XL) 150 MG 24 hr tablet Indications: Mild major depression Take 1 (one) tablet (150 mg total) by mouth daily . 30 tablet 11 02/06/2024 02/05/2025 Active busPIRone hydrochloride 30 mg oral tablet (20 sources) Start: 08-21-2021 End: 05-14-2025 take 1 tablet by mouth twice daily busPIRone (BUSPAR) 30 MG tablet Indications: Depression with anxiety Take 1 (one) tablet (30 mg total) by mouth 2 (two) times a day . 180 tablet 3 05/14/2024 05/14/2025 Active Start: 03-09-2021 End: 03-09-2022 take 1 tablet by mouth three times daily as needed for anxiety busPIRone (BUSPAR) 10 MG tablet Indications: Depression with anxiety Take 1 (one) tablet (10 mg total) by mouth 3 (three) times a day as needed (anxiety) . 270 tablet 3 03/09/2021 08/21/2021 Discontinued (Reorder) Start: 06-06-2020 busPIRone HCl - 7.5 MG Oral Tablet Quantity: 180 Refills: 0 Ordered: 24-Jul-2020 DO Start : 06-Jun-2020 Active Start: 06-06-2020 End: 06-06-2021 take 1 tablet by mouth twice daily as needed for anxiety busPIRone (BUSPAR) 7.5 MG tablet Indications: Depression with anxiety Take 1 (one) tablet (7.5 mg total) by mouth 2 (two) times a day as needed (anxiety) . 180 tablet 3 06/06/2020 06/06/2021 Active cyclobenzaprine hydrochloride 10 mg oral tablet (20 sources) Muscle Relaxant Start: 06-06-2020 End: 05-14-2024 take 1 tablet by mouth twice daily as needed for pain cyclobenzaprine (FLEXERIL) 10 MG tablet Take 1 (one) tablet (10 mg total) by mouth 2 (two) times a day as needed for muscle spasms (neck pain) . 180 tablet 1 05/14/2024 Active Start: 06-06-2020 Cyclobenzaprin e HCl - 10 MG Oral Tablet Quantity: 90 Refills: 0 Ordered: 06-Jun-2020 DO Start : 06-Jun-2020 Active Start: 06-06-2020 End: 09-05-2020 take 1 tablet by mouth once daily as needed for pain cyclobenzaprine (FLEXERIL) 10 MG tablet Take 1 (one) tablet (10 mg total) by mouth nightly as needed for muscle spasms (back pain) . 90 tablet 3 06/06/2020 09/05/2020 Discontinued (Reorder) Start: 01-26-2020 End: 02-05-2020 take 1 tablet by mouth three times daily as needed for muscle spasms cyclobenzaprine (FLEXERIL) 10 MG tablet Take 1 (one) tablet (10 mg total) by mouth 3 (three) times a day as needed for muscle spasms . 30 tablet 0 01/26/2020 02/05/2020 Active cyclobenzaprine Quantity: 0 Refills: 0 Ordered: 27-Oct-2021 Bertin Christensen Generic Substitution Allowed DULoxetine 60 mg delayed release oral capsule (20 sources) Serotonin and Norepinephrine Reuptake Inhibitor Start: 10-02-2019 End: 03-23-2025 take 1 capsule by mouth twice daily DULoxetine (CYMBALTA) 60 MG capsule Indications: Depression with anxiety Take 1 (one) capsule (60 mg total) by mouth 2 (two) times a day . 180 capsule 3 03/23/2024 03/23/2025 Active Start: 10-02-2019 DULoxetine HCl - 60 MG Oral Capsule Delayed Release Particles Quantity: 60 Refills: 0 Ordered: 20-Jul-2020 DO Start : 02-Oct-2019 Active Start: 06-08-2019 End: 06-07-2020 take 1 capsule by mouth once daily DULoxetine (CYMBALTA) 20 MG capsule Indications: Depression with anxiety Take 1 (one) capsule (20 mg total) by mouth daily . 30 capsule 2 06/08/2019 06/07/2020 Active Start: 10-29-2018 End: 06-07-2020 take 1 capsule by mouth once daily DULoxetine (CYMBALTA) 60 MG capsule Indications: Depression with anxiety Take 1 (one) capsule (60 mg total) by mouth daily . 90 capsule 3 06/08/2019 06/07/2020 Active Start: 03-18-2018 End: 03-18-2019 take 30 mg by mouth once daily Duloxetine Active 30 MG PO DAILY October 01, 2018 12:00am DULoxetine Quant ity: 0 Refills: 0 Ordered: 27-Oct-2021 Bertin Christensen Generic Substitution Allowed L acidophil/B lactis/B longum (FLORAJEN3 ORAL) (2 sources) take 1 capsule by mouth once daily L acidophil/B lactis/B longum (FLORAJEN3 ORAL) Indications: Mass of right side of neck Take 1 capsule by mouth daily. Active levothyroxine sodium 0.088 mg oral tablet (20 sources) l-Thyroxine Start: 02-07-2024 End: 02-06-2025 take 1 tablet by mouth once daily levothyroxine (SYNTHROID, LEVOTHROID) 88 MCG tablet Indications: Hypothyroidism, unspecified type Take 1 (one) tablet (88 mcg total) by mouth once daily . 30 tablet 11 02/07/2024 02/06/2025 Active Start: 10-02-2019 Euthyrox 100 M CG Oral Tablet Quantity: 30 Refills: 0 Ordered: 15-May-2020 DO Start : 02-Oct-2019 Active Start: 09-18-2018 End: 11-05-2024 take 1 tablet by mouth once daily levothyroxine (Synthroid, Levoxyl) 100 mcg tablet Take 1 tablet (100 mcg) by mouth once daily. 10/02/2019 Active Start: 03-05-2018 End: 03-18-2019 take 1 tablet by mouth once daily levothyroxine (SYNTHROID, LEVOTHROID) 50 MCG tablet Indications: Hypothyroidism (acquired) Take 1 (one) tablet (50 mcg total) by mouth once daily. 90 tablet 5 03/18/2018 03/18/2019 Active Start: 10-07-2017 take 100 ug by mouth once daily Levothyroxine Active 100 MCG PO DAILY October 07, 2017 12:00am Start: 09-20-2017 Levothyroxine Sodium 50 MCG Oral Tablet Quantity: 30 Refills: 0 Ordered: 20-Sep-2017 DO Start : 20-Sep-2017 Active take 1 tablet by aleksandar th once daily Synthroid 50 mcg (0.05 mg) oral tablet ; 1 tab(s) orally once a day Quantity: 0 Refills: 0 Ordered: 04-Oct-2017 Yessica Gonzalez Generic Substitution Allowed levothyroxine Qu antity: 0 Refills: 0 Ordered: 27-Oct-2021 Bertin Christensen Generic Substitution Allowed linaclotide 0.145 mg oral capsule (20 sources) Guanylate Cyclase-C Agonist Start: 12-04-2021 End: 07-27-2022 take 1 capsule by mouth once daily linaCLOtide (Linzess) 145 mcg capsule Take 1 capsule (145 mcg) by mouth once daily. 0 12/04/2021 Active multivitamin (multivitamin) per tablet (18 sources) take 1 tablet by mouth once daily multivitamin (multivitamin) per tablet Take 1 tablet by mouth daily . 0 Active multivitamin (THERAGRAN) per tablet (20 sources) take 1 tablet by mouth once daily multivitamin (THERAGRAN) per tablet Take 1 (one) tablet by mouth daily . Active take 1 tablet by mouth once [place] multivitamin (THERAGRAN) per tablet Take 1 (one) tablet by mouth daily . 0 Active take 1 tablet by mouth once [place] y multivitamin (THERAGRAN) per tablet Take 1 tablet by mouth daily . 0 Active multivitamin tablet (4 sources) take 1 tablet by aleksandar th once daily multivitamin tablet Take 1 tablet by mouth once daily. Active take 1 tablet by mouth once [place] y multivitamin tablet Take 1 tablet by mouth once daily. 0 Active oxymetazoline hydrochloride 0.5 mg/ml nasal spray (4 sources) Start: 06-02-2023 End: 06-04-2023 oxymetazoline (Afrin) 0.05 % nasal spray Indications: RSV infection Administer 2 sprays into each nostril every 12 hours if needed for congestion for up to 2 days. Do not use for more than 3 days. 30 mL 06/02/2023 Active pentoxifylline 400 mg extended release oral tablet (20 sources) Blood Viscosity Regrind Mill Operator Start: 06-22-2020 Pentoxifylline ER 40 0 MG Oral Tablet Extended Release Quantity: 90 Refills: 0 Ordered: 20-Jul-2020 DO Start : 22-Jun-2020 Active Start: 01-04-2020 End: 02-23-2022 pentoxifylline (Trental) 400 mg ER tablet Take 1 tablet (400 mg) by mouth. 06/22/2020 Active pentoxifylline Q uantity: 0 Refills: 0 Ordered: 27-Oct-2021 Bertin Christensen Generic Substitution Allowed pilocarpine hydrochloride 7.5 mg oral tablet (20 sources) Cholinergic Receptor Agonist Start: 07-13-2021 End: 02-23-2022 take 1 tablet by mouth three times daily Pilocarpine Hcl Active 7.5 MG PO ONCE 90 February 23, 2022 8:23am take 1 tab PO tid Start: 06-22-2020 Pilocarpine HC l - 5 MG Oral Tablet Quantity: 90 Refills: 0 Ordered: 20-Jul-2020 DO Start : 22-Jun-2020 Active Start: 01-04-2020 End: 01-09-2021 take 1 tablet by mouth three times daily pilocarpine (Salagen) 5 mg tablet Take 1 tablet (5 mg) by mouth 3 times a day. 06/22/2020 Active pilocarpine Devonte tity: 0 Refills: 0 Ordered: 27-Oct-2021 Bertin Christensen Generic Substitution Allowed predniSONE 20 mg oral tablet (3 sources) Start: 05-25-2021 End: 05-30-2021 take 2 tablets by mouth once daily predniSONE (DELTASONE) 20 MG tablet Indications: COVID-19 Take 2 (two) tablets (40 mg total) by mouth daily for 5 days . 10 tablet 0 05/25/2021 05/30/2021 Active Start: 09-14-2020 End: 09-17-2020 take 2 tablets by mouth once daily predniSONE (DELTASONE) 20 MG tablet Indications: Congestion of nasal sinus Take 2 (two) tablets (40 mg total) by mouth daily for 3 days . 6 tablet 0 09/14/2020 09/17/2020 Active Start: 01-26-2020 End: 01-31-2020 take 2 tablets by mouth once daily predniSONE (DELTASONE) 20 MG tablet Take 2 (two) tablets (40 mg total) by mouth daily for 5 days . 10 tablet 0 01/26/2020 01/31/2020 traZODone hydrochloride 50 mg oral tablet (20 sources) Serotonin Reuptake Inhibitor Start: 10-02-2019 traZODone HCl - 50 M G Oral Tablet Quantity: 30 Refills: 0 Ordered: 20-Jul-2020 DO Start : 02-Oct-2019 Active Start: 05-15-2018 End: 02-06-2024 take 1 tablet by mouth once daily traZODone (Desyrel) 50 mg tablet Take 1 tablet (50 mg) by mouth once daily. 10/02/2019 Active traZODone Quanti ty: 0 Refills: 0 Ordered: 27-Oct-2021 Bertin Christensen Generic Substitution Allowed varenicline 0.5 mg oral tablet (5 sources) Partial Cholinergic Nicotinic Agonist Start: 09-18-2017 End: 12-17-2017 take 1 tablet by mouth twice daily varenicline (CHANTIX) 1 mg tablet Indications: Cigarette nicotine dependence without complication Take 1 (one) tablet (1 mg total) by mouth 2 (two) times a day. 60 tablet 2 09/18/2017 12/17/2017 Active Start: 09-18-2017 End: 12-17-2017 take 1 tablet by mouth once daily, then take 1 tablet by mouth twice daily, then take 1 mg by mouth twice daily varenicline (CHANTIX RENETTA) 0.5 mg (11)- 1 mg (42) tablet Indications: Cigarette nicotine dependence without complication Take one 0.5mg tab by mouth once daily for 3 days, then increase to one 0.5mg tab twice daily for 4 days, then increase to 1mg twice daily.. 53 tablet 0 09/18/2017 12/17/2017 Active Vitamin B Complex (20 sources) take 1 tablet by aleksandar th once daily vitamin B complex (B COMPLEX-VITAMIN B12 ORAL) Take 1 tablet by mouth daily . Active take 1 tablet by mouth once [place] y vitamin B complex (B COMPLEX-VITAMIN B12 ORAL) Take 1 tablet by mouth daily . 0 Active vitamin b12 0.1 mg oral tablet (4 sources) Vitamin B12 take 1 tablet by mouth once daily cyanocobalamin (Vitamin B-12) 100 mcg tablet Take 1 tablet (100 mcg) by mouth once daily. Active vitamin e 450 mg oral capsule (20 sources) Start: 01-04-2020 take 1 capsule by mouth once daily vitamin E 1000 UNIT capsule TAKE 1 CAPSULE BY MOUTH ONCE DAILY FOR FIBROSIS 01/07/2020 Active vitamin E acetate (VITAMIN E ORAL) (11 sources) vitamin E acetat e (VITAMIN E ORAL) Take by mouth daily . 0 Active Completed/Discontinued Medications Medication Drug Class(es) Dates Sig (Normalized) Sig (Original) acetaminophen 300 mg / HYDROcodone bitartrate 5 mg oral tablet (20 sources) Opioid Agonist Start: 06-06-2020 HYDROcodone-Acetam inophen 5-300 MG Oral Tablet Quantity: 18 Refills: 0 Ordered: 06-Jun-2020 DO Start : 06-Jun-2020 Active Start: 01-26-2020 End: 01-29-2020 take 1 tablet by mouth every four hours as needed for pain, then take 3 tablets by mouth as needed for pain HYDROcodone-acetaminophen (NORCO) 5-325 mg per tablet Indications: Acute right-sided low back pain without sciatica Take 1 (one) tablet by mouth every 4 (four) hours as needed for pain (Days supply per fill: 3) . 18 tablet 0 01/26/2020 01/29/2020 Start: 10-31-2018 End: 11-07-2018 take 1 tablet by mouth every six hours as needed for pain, then take 7 tablets by mouth as needed for pain HYDROcodone-acetaminophen (NORCO) 5-325 mg per tablet Indications: Cellulitis of scalp Take 1 (one) tablet by mouth every 6 (six) hours as needed for pain (Days supply per fill: 7) . 28 tablet 0 10/31/2018 11/07/2018 Start: 10-29-2018 End: 10-31-2018 take 1 tablet by mouth every four hours as needed Hydrocodone-Acetaminophen Discontinued 1 TABLET PO EVERY 4 HOURS NEEDED 10 2 October 29, 2018 12:00am October 31, 2018 12:08am albuterol 0.833 mg/ml / ipratropium bromide 0.167 mg/ml inhalation solution (1 source) Anticholinergic, beta2-Adrenergic Agonist Start: 06-02-2023 End: 06-02-2023 ipratropium-albuteroL (Duo-Neb) 0.5-2.5 mg/3 mL nebulizer solution 6 mL ascorbic acid 1000 mg oral tablet (8 sources) Vitamin C Vitamin C 1000 M G Oral Tablet Quantity: 0 Refills: 0 Ordered: 19-Oct-2021 DO Active Azithromycin (3 sources) Macrolide Antimicrobial Start: 05-25-2021 End: 08-21-2021 azithromycin (Z-RENETTA) 5 day dose pack Indications: COVID-19 Follow directions on package . 6 tablet 0 05/25/2021 08/21/2021 Discontinued Start: 05-25-2021 azithromycin ( Z-RENETTA) 5 day dose pack Indications: COVID-19 Follow directions on package . 6 tablet 0 05/25/2021 Active cholecalciferol 0.025 mg oral capsule (8 sources) Vitamin D [facility] Vitamin D3 1000 UNIT CAPS Quantity: 0 Refills: 0 Ordered: 19-Oct-2021 DO Active docusate sodium 100 mg oral capsule (10 sources) End: 2022 take 2 capsules by mouth three times daily as needed for constipation docusate sodium (COLACE) 100 MG capsule Take 2 (two) capsules (200 mg total) by mouth 3 (three) times a day as needed for constipation . 0 07/27/2022 Discontinued doxycycline monohydrate 100 mg oral capsule (7 sources) Tetracycline-class Drug Start: 2021 take 1 capsule by mouth twice daily Doxycycline Monohydrate 100 MG Oral Capsule TAKE 1 CAPSULE BY MOUTH TWICE DAILY Quantity: 14 Refills: 0 Ordered: 27-Oct-2021 DO Start : 27-Oct-2021 Active fluconazole 100 mg oral tablet (14 sources) Azole Antifungal Start: 2017 Fluconazole 100 MG Oral Tablet Quantity: 15 Refills: 0 Ordered: 23-Dec-2017 DO Start : 23-Dec-2017 Active fluticasone propionate 0.05 mg/actuat metered dose nasal spray (17 sources) Corticosteroid Start: 2020 End: 2022 take 2 spray(s) nasal route once daily fluticasone propionate (FLONASE) 50 mcg/actuation nasal spray Indications: Congestion of nasal sinus Instill 2 (two) sprays into each nostril daily . 16 g 1 09/14/2020 07/27/2022 Discontinued gabapentin 300 mg oral capsule (14 sources) Anti-epileptic Agent Start: 2017 Gabapentin 300 MG Oral Capsule Quantity: 100 Refills: 0 Ordered: 10-Dec-2017 DO Start : 06-Nov-2017 Active L.rhamn A-191-L.ac-B.etienne-B.mario (Probiotic) 20 billion cell CpSP (15 sources) Start: 2019 End: 2021 take 1 capsule by mouth once daily L.rhamn A-191-L.ac-B.etienne-B .mario (Probiotic) 20 billion cell CpSP Take 1 capsule by mouth daily . 90 capsule 3 03/11/2020 08/21/2021 Discontinued Start: 03-11-2020 take 1 capsule by mo uth once daily L.rhamn A-191-L.ac-B.etienne-B.mario (Probiotic) 20 billion cell CpSP Take 1 capsule by mouth daily . 90 capsule 3 03/11/2020 Active lactobacillus acidophilus 460 mg oral capsule (20 sources) Start: 04-11-2021 End: 07-27-2022 take 1 capsule by mouth in the morning Florajen Acidophilus 20 billion cell cap Indications: Irritable bowel syndrome, unspecified type Take one capsule by mouth in the morning. . 90 capsule 3 04/11/2021 07/27/2022 Discontinued Start: 03-11-2020 take 1 capsule by mo uth once daily Florajen Acidophilus Oral Capsule TAKE 1 CAPSULE BY MOUTH ONCE DAILY Quantity: 60 Refills: 0 Ordered: 24-Jul-2020 DO Start : 11-Mar-2020 Active Start: 03-11-2020 take 1 capsule by mo uth once daily Florajen Acidophilus Oral Capsule TAKE 1 CAPSULE BY MOUTH ONCE DAILY Quantity: 60 Refills: 0 Ordered: 24-Jul-2020 DO Start : 11-Mar-2020 Active Start: 10-02-2019 End: 04-06-2021 take 1 capsule by mouth in the morning Florajen Acidophilus 20 billion cell cap Indications: Irritable bowel syndrome, unspecified type Take one capsule by mouth in the morning. . 90 capsule 3 04/06/2021 Active Start: 10-29-2018 take 1 capsule by mo uth in the morning Lactobacillus acidophilus (FLORAJEN) 460 mg (20 billion cell) cap Take one capsule by mouth in the morning. . 90 capsule 3 10/29/2018 Active lidocaine hydrochloride 20 mg/ml mucous membrane topical solution (14 sources) Antiarrhythmic, Amide Local Anesthetic Start: 06-02-2018 Lidocaine Viscous 2 % SOLN SWISH AND SWALLOW 5ML EVERY 4 HOURS NEEDED Quantity: 2 Refills: 1 Ordered: 02-Jun-2018 John Mattson MD Start : 02-Jun-2018 Active lidocaine 25 mg/ml / prilocaine 25 mg/ml topical cream (14 sources) Antiarrhythmic, Amide Local Anesthetic Start: 10-14-2017 Lidocaine-Priloca ine 2.5-2.5 % External Cream Quantity: 30 Refills: 0 Ordered: 19-Nov-2017 DO Start : 14-Oct-2017 Active OLANZapine 10 mg oral tablet (14 sources) Atypical Antipsychotic Start: 10-14-2017 OLANZapine 10 MG Oral Tablet Quantity: 15 Refills: 0 Ordered: 14-Oct-2017 DO Start : 14-Oct-2017 Active ondansetron 4 mg oral tablet (15 sources) Serotonin-3 Receptor Antagonist Start: 05-26-2019 End: 06-01-2019 take 1 tablet by mouth three times daily as needed for nausea Zofran 4 mg oral tablet ; 1 tab(s) orally 3 times a day, As Needed for nausea/vomiting Quantity: 21 Refills: 0 Ordered: 26-May-2019 Dannie Henderson Start: 26-May-2019 End: 01-Jun-2019 Status: Other Generic Substitution Allowed Start: 10-14-2017 Ondansetron HC l - 4 MG Oral Tablet Quantity: 30 Refills: 0 Ordered: 14-Oct-2017 DO Start : 14-Oct-2017 Active oxyCODONE hydrochloride 1 mg/ml oral solution (6 sources) Opioid Agonist Start: 12-12-2017 oxyCODONE HCl - 5 MG/5ML Oral Solution Quantity: 600 Refills: 0 Ordered: 21-Dec-2017 DO Start : 12-Dec-2017 Active plecanatide 3 mg oral tablet (15 sources) Start: 12-22-2021 End: 07-27-2022 take 1 tablet by mouth once daily Trulance 3 MG Oral Tablet Take 1 tablet daily Quantity: 30 Refills: 5 Ordered: 26-Dec-2021 Dennis Dowling DO Start : 26-Dec-2021 Active polyethylene glycol 3350 11737 mg powder for oral solution (19 sources) Osmotic Laxative Start: 09-05-2020 End: 07-27-2022 polyethylene glycol (MIRALAX) 17 gram powder Indications: Chronic constipation Take 17 (seventeen) g by mouth daily as needed (constipation) . 100 packet 3 09/05/2020 07/27/2022 Discontinued silver sulfADIAZINE 10 mg/ml topical cream (14 sources) Sulfonamide Antibacterial Start: 12-10-2017 SSD 1 % External Cream Quantity: 50 Refills: 0 Ordered: 10-Dec-2017 DO Start : 10-Dec-2017 Active tenapanor 50 mg oral tablet (1 source) Start: 11-17-2021 take 1 tablet by mouth twice daily Ibsrela 50 MG Oral Tablet Take one tablet twice daily by mouth Quantity: 60 Refills: 0 Ordered: 17-Nov-2021 Nitesh DE LA FUENTE Dennis Start : 17-Nov-2021 Active traMADol hydrochloride 50 mg oral tablet (15 sources) Opioid Agonist Start: 10-04-2017 traMADol HCl - 50 MG Oral Tablet Quantity: 28 Refills: 0 Ordered: 04-Oct-2017 DO Start : 04-Oct-2017 Active Start: 10-04-2017 take 1 tablet by aleksandar th every six hours traMADol 50 mg oral tablet ; 1 tab(s) orally every 6 hours as needed for pain.Dx: oral cavity lesion concerning for SCCaICD: 89.3 Quantity: 28 Refills: 0 Ordered: 04-Oct-2017 Lester Conley Start: 04-Oct-2017 Status: Other Generic Substitution Allowed Comments: Caution federal law prohibits the transfer of this drug to any person other than the person for whom it was prescribed.May cause drowsiness. Alcohol may intensify this effect. Use care when operating dangerous machinery.Obtain medical advice before taking any non-prescription drugs as some may affect the action of this medication. Comment on above: Caution federal law prohibits the transfer of this drug to any person other than the person for whom it was prescribed.May cause drowsiness. Alcohol may intensify this effect. Use care when operating dangerous machinery.Obtain medical advice before taking any non-prescription drugs as some may affect the action of this medication. triamcinolone acetonide 0.001 mg/mg topical ointment (15 sources) Corticosteroid Start: 10-27-2021 Triamcinolone Acetonide 0.1 % External Ointment APPLY OINTMENT TOPICALLY TO AFFECTED AREA THREE TIMES DAILY Quantity: 60 Refills: 0 Ordered: 27-Oct-2021 DO Start : 27-Oct-2021 Active Start: 11-24-2019 End: 11-23-2020 triamcinolone (KENALOG) 0.02 5 % cream Apply topically 2 (two) times a day . 30 g 0 11/24/2019 09/05/2020 Discontinued Vitamin B12 TABS (8 sources) Vitamin B12 TABS Quantity: 0 Refills: 0 Ordered: 19-Oct-2021 DO Active Zinc (8 sources) Zinc 100 MG Oral Tablet Quantity: 0 Refills: 0 Ordered: 19-Oct-2021 DO Active Problems Active Problems Problem Classification Problem Date Documented Da te Episodic/Chronic Administrative/social admission (4 sources) Education and/or schooling finding; Translations: [Problems related to education and literacy, unspecified] 10-14-2017 Episodic Anxiety disorders (9 sources) Anxiety; Translations: [Depression with anxiety] 09-18-2017 Chronic Cancer of head and neck (20 sources) Malignant tumor of base of tongue; Translations: [Malignant neoplasm of base of tongue] Onset: 11-20-2017 03-13-2018 Chronic Cancer of head and neck (4 sources) Personal history of malignant neoplasm of tongue; Translations: [History of primary malignant neoplasm of base of tongue] 01-09-2021 Episodic Mood disorders (20 sources) Mixed anxiety and depressive disorder; Translations: [Other specified anxiety disorders] Onset: 10-24-2023 09-18-2017 Chronic Nutritional deficiencies (1 source) Vitamin D deficiency; Translations: [Vitamin D deficiency] Chronic Other aftercare (8 sources) Patient encounter status; Translations: [Encounter for adjustment and management of vascular access device] 09-29-2018 Episodic Other and unspecified benign neoplasm (4 sources) History of polyp of colon; Translations: [Personal history of colonic polyps] 12-29-2018 Episodic Other ear and sense organ disorders (4 sources) Tinnitus; Translations: [Tinnitus, unspecified ear] 03-12-2018 Episodic Other gastrointestinal disorders (20 sources) Irritable bowel syndrome; Translations: [Irritable bowel syndrome without diarrhea] 09-18-2017 Chronic Other gastrointestinal disorders (9 sources) Irritable bowel syndrome characterized by constipation; Translations: [Irritable bowel syndrome] Chronic Other gastrointestinal disorders (10 sources) Chronic constipation; Translations: [Other constipation] Episodic Other injuries and conditions due to external causes (15 sources) Contusion; Translations: [Contusion of unspecified site] Episodic Other injuries and conditions due to external causes (14 sources) Adverse effect of radiation therapy; Translations: [Other specified aftercare] Episodic Other nutritional; endocrine; and metabolic disorders (20 sources) Obesity, unspecified; Translations: [Obese class I] Onset: 09-18-2017 09-18-2017 Chronic Other nutritional; endocrine; and metabolic disorders (2 sources) Body mass index 30+ - obesity; Translations: [Obesity, unspecified] Chronic Other nutritional; endocrine; and metabolic disorders (10 sources) Obese class I; Translations: [Obesity, Class I, BMI 30-34.9] Onset: 09-18-2017 09-18-2017 Other upper respiratory disease (14 sources) Pain in throat; Translations: [Throat pain] Episodic Residual codes; unclassified (1 source) Needs influenza immunization; Translations: [Need for influenza vaccination] Episodic Residual codes; unclassified (1 source) Influenza-like symptoms; Translations: [Flu-like symptoms] Episodic Residual codes; unclassified (1 source) Requires vaccination; Translations: [Need for vaccination] Screening or history of mental health and substance abuse (20 sources) Nicotine dependence; Translations: [Nicotine dependence, unspecified, uncomplicated] 09-18-2017 Chronic Secondary malignancies (14 sources) 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; Translations: [Secondary and unspecified malignant neoplasm of lymph nodes, site unspecified] Chronic Secondary malignancies (4 sources) Regional lymph node metastasis present ; Translations: [Secondary and unspecified malignant neoplasm of lymph node, unspecified] 03-12-2018 Chronic Secondary malignancies (4 sources) Secondary and unspecified malignant neoplasm of lymph node, unspecified; Translations: [Secondary and unspecified malignant neoplasm of lymph nodes, site unspecified] Onset: 02-11-2024 Chronic Thyroid disorders (20 sources) Acquired hypothyroidism; Translations: [Hypothyroidism, unspecified] Onset: 09-20-2017 09-20-2017 Chronic Unclassified (4 sources) Patient encounter status; Translations: [Screening for breast cancer] Onset: 09-05-2020 09-05-2020 Unclassified (2 sources) TICK BITE ON BACK 10-27-2021 Comment on above: TICK BITE ON BACK Unclassified (1 source) 4 WEEK FU 10-19-2021 Comment on above: 4 WEEK FU Unclassified (1 source) 6 MONTH FUV 05-01-2021 Comment on above: 6 MONTH FUV Unclassified (2 sources) Immunizations Onset: 03-12-2024 Past or Other Problems Problem Classification Problem Date Documented Date Episodic/Chronic Diseases of mouth; excluding dental (20 sources) Xerostomia following radiotherapy; Translations: [Disturbance of salivary secretion] Onset: 4 Episodic E Codes: Adverse effects of medical care (3 sources) Radiological procedure and radiotherapy as the cause of abnormal reaction of the patient, or of later complication, without mention of misadventure at the time of the procedure; Translations: [Radiological procedure and radiotherapy as the cause of abnormal reaction of the patient, or of later complication, without mention of misadventure at the time of the procedure] Onset: 4 Episodic Headache; including migraine (20 sources) Headache; Translations: [Disorder of scalp] Onset: 9 10-29-2018 Episodic Immunizations and screening for infectious disease (20 sources) Suspected disease caused by 2019-nCoV; Translations: [Suspected COVID-19 virus infection] Onset: 1 Resolved: 2 Episodic Malaise and fatigue (20 sources) Fatigue; Translations: [Other fatigue] Onset: 9 02-05-2019 Episodic Other gastrointestinal disorders (2 sources) Dysphagia, pharyngoesophageal phase; Translations: [Dysphagia, pharyngoesophageal phase] Onset: 4 Episodic Other gastrointestinal disorders (2 sources) Dysphagia; Translations: [Dysphagia, pharyngoesophageal phase] Onset: 4 01-13-2024 Episodic Other screening for suspected conditions (not mental disorders or infectious disease) (20 sources) Encounter for screening for malignant neoplasm of respiratory organs; Translations: [Special screening for malignant neoplasms of respiratory organs] Onset: 3 Episodic Other skin disorders (12 sources) Disorder of scalp; Translations: [Scalp pain] Onset: 9 10-29-2018 Episodic Other upper respiratory disease (20 sources) Congestion of nasal sinus; Translations: [Nasal congestion] Onset: 1 Resolved: 2 09-14-2020 Episodic Residual codes; unclassified (20 sources) Intolerant of cold; Translations: [Other general symptoms and signs] Onset: 8 03-18-2018 Episodic Residual codes; unclassified (20 sources) Insomnia; Translations: [Insomnia, unspecified] Onset: 0 02-05-2020 Episodic Screening and history of mental health and substance abuse codes (9 sources) Tobacco use and exposure - finding; Translations: [Personal history of nicotine dependence] Onset: 4 Episodic Secondary malignancies (20 sources) Secondary malignant neoplasm of lymph node; Translations: [Secondary and unspecified malignant neoplasm of lymph node, unspecified] Onset: 8 Resolved: 3 03-13-2018 Chronic Spondylosis; intervertebral disc disorders; other back problems (20 sources) Acute low back pain; Translations: [Backache] Onset: 1 06-13-2020 Episodic Unclassified (20 sources) Mass of neck; Translations: [Localized swelling, mass and lump, neck] Onset: 8 09-18-2017 Episodic Unclassified (1 source) PEG TUB REMOVED 12-25-2021 Unclassified (1 source) history PEG tube placement 12-25-2021 Unclassified (1 source) history port placement 12-25-2021 Unclassified (1 source) peg tube 12-25-2021 Unclassified (1 source) Onset: 4 01-13-2024 Viral infection (20 sources) Disease caused by 2019-nCoV; Translations: [COVID-19] Onset: 1 Resolved: 2 05-25-2021 Episodic Results Test Name Value Interpretation Reference Range Facility Radiation Oncology Visiton 0 07-31-2024 Radiation Oncology Visit [facility] [place] [address] OFFICE VISIT Date of Service: 07/31/24 0802 MR#: [id number] Acct: [id number] Name: FCO GARNETT Rep #: [id number] : 1970 From: Pierce Pascal DO Age/Sex: 53/F [place] [facility] Status: Signed Intake Vital Signs 02/11/24 14:29 07/31/24 08:03 Height 5 ft 4 in 5 ft 4 in Weight: 170 lb 6 oz 159 lb 2 oz BMI 29.2 27.3 BP 108/73 104/70 Blood Pressure Location Lt brachial Rt brachial Position Sitting Sitting Respiration 16 18 Pulse 75 72 Pulse Source Monitor Monitor Temp 97.3 F L 97.0 F L Temperature Source Temporal Artery Temporal Artery Pulse Oximetry (%) 96 97 Oxygen Delivery Method room air room air Intake Visit Reasons: 1 YR F/U H/N Is patient in pain?: No Allergies No Known Allergies Allergy (Verified 07/31/24 08:05) Medications ???Medication ???Instructions ???Recorded ???Confirmed ???Type levothyroxine 50 mcg tablet 100 mcg PO DAILY 10/07/17 07/31/24 History duloxetine 30 mg capsule,delayed 30 mg PO DAILY 10/01/18 07/31/24 H istory release Pilocarpine Hcl [Salagen] 5 mg PO TID xerostomia #90 tabs 07/31/24 Rx vitamin E 670 mg (1,000 unit) 1,000 unit PO DAILY #90 CAPSULES 0 08/10/20 07/31/24 Rx capsule Pilocarpine Hcl [Salagen] 5 mg PO TID xerostomia #270 TABLET S 01/09/21 07/31/24 Rx pilocarpine HCl 5 mg tablet 5 mg PO TID xerostomia #270 tabs 0 01/09/21 07/31/24 Rx pentoxifylline 400 mg 400 mg PO TID #270 TABLETS 2 07/31/24 Rx tablet,extended release pentoxifylline 400 mg 400 mg PO TID fibrosis #90 tabs 07/31/24 Rx tablet,extended release pilocarpine HCl 7.5 mg tablet 7.5 mg PO ONCE dry mouth #90 tabs 06/17/23 07/31/24 Rx PFSH PFSH Medical History Hypothyroidism History of tobacco use Encounter for screening for malignant neoplasm of lung Lyme disease PEG TUB REMOVED Thyroid disease peg tube IBS (irritable bowel syndrome) Cancer of base of tongue Home Medications ???Medication ???Instructions ???Recorded ???Last Taken ???Type levothyroxine 50 mcg tablet 100 mcg PO DAILY 10/07/17 10/14/18 04:00 History duloxetine 30 mg capsule,delayed 30 mg PO DAILY 10/01/18 Unknown Hi story release Pilocarpine Hcl [Salagen] 5 mg PO TID xerostomia #90 tabs Unknown Rx vitamin E 670 mg (1,000 unit) 1,000 unit PO DAILY #90 CAPSULES 0 08/10/20 Unknown Rx capsule Pilocarpine Hcl [Salagen] 5 mg PO TID xerostomia #270 TABLET S 01/09/21 Unknown Rx pilocarpine HCl 5 mg tablet 5 mg PO TID xerostomia #270 tabs 0 01/09/21 Unknown Rx pentoxifylline 400 mg 400 mg PO TID #270 TABLETS 2 Unknown Rx tablet,extended release pentoxifylline 400 mg 400 mg PO TID fibrosis #90 tabs Unknown Rx tablet,extended release pilocarpine HCl 7.5 mg tablet 7.5 mg PO ONCE dry mouth #90 tabs 06/17/23 Unknown Rx Allergy/AdvReac Type Severity Reaction Status Date / Time No Known Allergies Allergy Verified 07/31/24 08:05 Family History Father Lung cancer Diabetes Mother Diabetes Surgical History History of hysterectomy history port placement history PEG tube placement History of cholecystectomy History of hysterectomy Social History Smoking Status: Former smoker (Quit smoking 09/2017.) alcohol intake: never substance use type: does not use Diagnosis: Fco Garnett is a 53 year-old 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 every 3 weeks (cycle one 11/05/17), switched to weekly carbo/taxol for cycle 2 due to tinnitus (started 11/26/17). History of Present Illness: 09/12/2017: Patient underwent CT of the neck with contrast which demonstrated necrotic adenopathy within the right neck specifically at level 3 there is a lymph node measuring 39 x 29 x 26 mm, right neck level 5 lymph node measuring 14 x 18 mm. There is also (more content not included)... Normal [facility] Oncology Visit Reporton 01-25 Oncology Visit Report [facility] [address] [place], [place] [address] [address] OFFICE VISIT Date of Service: 02/11/24 1425 MR#: [id number] Acct: [id number] Name: FCO GARNETT Rep #: [id number] : 1970 From: Gloria Goode MD Age/Sex: 53/F Location[place] [facility] Status: Signed HPI Subjective Date of Service 02/11/24 Chief Complaint Tongue cancer follow-up History of Present Illness Patient is a 52-year-old female, smoker till September 2017 who presented with a painless enlarging right neck mass since July 2017. Was seen by Dr. Mattson at [facility] and underwent triple endoscopy on September 23, [...] tonsil and the right aryepiglottic fold. Patient ha6 lost only a few pounds of weight only and a feeding tube was placed by Dr. Mattson and she was referred for definitive chemoradiation. Patient elected to come to [facility] e to home. PET/CT staging September 2017 showed no evidence of distant metastatic disease. PET-CT post treatment June 2018 showed complete remission of her disease. Treatment summary and response: Combined radiation therapy and high-dose cisplatin (X1) [...] Treatment: 11/05/17 Date of Last Treatment: 12/23/17 [facility] Medical History Hypothyroidism History of tobacco use Encounter for screening for malignant neoplasm of lung Lyme disease PEG TUB REMOVED Thyroid disease peg tube IBS (irritable bowel syndrome) Cancer of base of tongue Surgical History History of hysterectomy history port placement history PEG tube placement History of cholecystectomy History of hysterectomy Family History Father Lung cancer Diabetes Mother Diabetes Social History Smoking Status: Former smoker (Quit smoking 09/2017.) alcohol intake: never substance use type: does not use ROS Constitutional Constitutional: Reports systems reviewed and no addt'l complaints, except as documented; Denies anorexia, fatigue, fever(s) or weight loss Eyes Eyes: Reports systems reviewed and no addt'l complaints, except as documented; Denies change in vision ENT HEENT: Reports systems reviewed and no addt'l complaints, except as documented, dry mouth and other Details: Of dryness improved slowly over the years ; Denies dysphagia or mouth lesions Cardiovascular Cardiovascular: Reports systems reviewed and no addt'l complaints, except as documented; Denies chest pain with activity or edema Respiratory/Chest Respiratory/Chest: Reports systems reviewed and no addt'l complaints, except as documented; Denies cough, dyspnea on exertion or hemoptysis Gastrointestinal Gastrointestinal: Reports systems reviewed and no addt'l complaints, except as documented; Denies change in bowel habits, hematochezia or melena Genitourinary Genitourinary: Reports systems reviewed and no addt'l complaints, except as documented; Denies hematuria Musculoskeletal Musculoskeletal: Reports systems reviewed and no addt'l complaints, except as documented; Denies arthralgias or back pain Integumentary Integumentary: Reports systems reviewed and no addt'l complaints, except as documented; Denies rash Neurologic Neurologic: Reports systems reviewed and no addt'l complaints, except as documented; Denies focal weakness or paresthesias Psychiatric Psychiatric: Reports systems reviewed and no addt'l complaints, except as documented Endocrine Endocrinology: Reports systems reviewed and no addt'l complaints, except as documented Hematologic/Lymphatic Hematologic/Lymphatic: Reports systems reviewed and no addt'l complaints, except as documented; Denies easy bleeding, easy bruising or lymphadenopathy Allergic/Immunologic Allergic/Immunologic: Reports systems reviewed and no addt'l complaints, except as documented Intake Vital Signs 02 (more content not included)... Normal [facility] CBC WITH AUTO DIFFERENTIALon 02-06-2024 AUTO NRBC 0.0 % Normal [facility] Comment on above: Performed By: #### L [id number] #### [facility] [address] [place], [place] [address] Issa Grayson M.D. [id number] AUTO NRBC ABS COUNT 0.00 K/mcL Normal 0.00-0.00 [facility] Comment on above: Performed By: #### L [id number] #### [facility] [address] [place], [place] [address] Issa Grayson M.D. [id number] BASOPHILS ABSOLUTE COUNT 0.04 K/mcL Normal 0.00-0.30 [facility] Comment on above: Performed By: #### L [id number] #### LAB [address] [place], [place] [address] Issa Grayson M.D. [id number] Basophils/100 WBC (Bld) 0.7 % Normal [facility] Comment on above: Performed By: #### L [id number] #### LAB [address] [place] [address] Issa Grayson M.D. [id number] Eosinophils (Bld) [#/Vol] 0.38 10*3/uL Normal 0.00-0.50 [facility] Comment on above: Performed By: #### L [id number] #### LAB [address] [place] [address] Issa Grayson M.D. [id number] Eosinophils/100 WBC (Bld) 6.3 % Normal [facility] Comment on above: Performed By: #### L [id number] #### LAB [address] [place] [address] Issa Grayson M.D. [id number] Erythrocyte distribution width (RBC) [Ratio] 13.4 % Normal 11.6-14.8 [facility] Comment on above: Performed By: #### L [id number] #### LAB [address] [place] [address] Issa Grayson M.D. [id number] Hematocrit (Bld) [Volume fraction] 39.9 % Normal 36.0-46.0 [facility] Comment on above: Performed By: #### L [id number] #### LAB [address] [place] [address] Issa Grayson M.D. [id number] Hemoglobin (Bld) [Mass/Vol] 12.7 g/dL Normal 12.0-16.0 [facility] Comment on above: Performed By: #### L [id number] #### [facility] [address] [place] [address] Issa Grayson M.D. [id number] IG ABSOLUTE 0.02 K/mcL Normal 0.00-0.30 [facility] Comment on above: Performed By: #### L [id number] #### LAB [address] [place] [address] Issa Grayson M.D. [id number] IG PERCENT 0.30 % Normal [facility] Comment on above: Result Comment: The IG parameter is the percentage of metamyelocytes, myelocytes and promyelocytes. An immature granulocyte count (IG) of 1% or more suggests the possibility of infection, an IG count of 3% is very likely related to an infection. Performed By: #### L [id number] #### LAB [address] [place] [address] Issa Grayson M.D. [id number] Lymphocytes (Bld) [#/Vol] 1.24 10*3/uL Normal 0.90-4.00 [facility] Comment on above: Performed By: #### L [id number] #### LAB [address] [place] [address] Issa Grayson M.D. [id number] Lymphocytes/100 WBC (Bld) 20.5 % Normal [facility] Comment on above: Performed By: #### L [id number] #### LAB [address] [place] [address] Issa Grayson M.D. [id number] MCH (RBC) [Entitic mass] 30.0 pg Normal 26.0-34.0 [facility] Comment on above: Performed By: #### L [id number] #### LAB [address] [place] [address] Issa Grayson M.D. [id number] MCV (RBC) [Entitic vol] 94.3 fL Normal 80.0-100.0 [facility] Comment on above: Performed By: #### L [id number] #### LAB [address] [place] [address] Issa Grayson M.D. [id number] MEAN CORPUSCULAR HEMOGLOBIN CONC 31.8 g/dL Normal 31.0-37.0 [facility] Comment on above: Performed By: #### L [id number] #### LAB [address] [place] [address] Issa Grayson M.D. [id number] Monocytes (Bld) [#/Vol] 0.42 10*3/uL Normal 0.30-0.90 [facility] Comment on above: Performed By: #### L [id number] #### LAB [address] [place] [address] Issa Grayson M.D. [id number] Monocytes/100 WBC (Bld) 6.9 % Normal [facility] Comment on above: Performed By: #### L [id number] #### LAB [address] [place] [address] Issa Grayson M.D. [id number] NEUTROPHILS ABSOLUTE COUNT 3.96 K/mcL Normal 1.70-7.00 [facility] Comment on above: Performed By: #### L [id number] #### LAB [address] [place] [address] Issa Grayson M.D. [id number] Neutrophils/100 WBC (Bld) 65.3 % Normal [facility] Comment on above: Performed By: #### L [id number] #### LAB [address] [place] [address] Issa Grayson M.D. [id number] Platelet mean volume (Bld) [Entitic vol] 9.6 fL Normal 9.4-12.4 [facility] Comment on above: Performed By: #### L [id number] #### LAB [address] [place] [address] Issa Grayson M.D. [id number] Platelets (Bld) [#/Vol] 289 10*3/uL Normal 150-400 [facility] Comment on above: Performed By: #### L [id number] #### LAB [address] [place] [address] Issa Grayson M.D. [id number] RBC (Bld) [#/Vol] 4.23 10*6/uL Normal 4.00-5.20 [facility] Comment on above: Performed By: #### L [id number] #### [facility] [address] [place] [address] Issa Grayson M.D. [id number] WBC (Bld) [#/Vol] 6.06 10*3/uL Normal 4.50-11.00 [facility] Comment on above: Performed By: #### L [id number] #### LAB [address] [place], [place] [address] Issa Grayson M.D. [id number] COMPREHENSIVE METABOLIC PANE Mario 02-06-2024 Albumin [Mass/Vol] 4.2 g/dL Normal 3.2-5.2 [facility] Comment on above: Order Comment: [facility] has implemented the eGFR calculation approach that does not have a coefficient for race that conforms to the NKF-ASN Task Force Recommendations. Performed By: #### [id number] #### LAB [address] [place], [place] [address] Issa Grayson M.D. [id number] ALP [Catalytic activity/Vol] 76 U/L Normal 40-150 [facility] Comment on above: Order Comment: [facility] has implemented the eGFR calculation approach that does not have a coefficient for race that conforms to the NKF-ASN Task Force Recommendations. Performed By: #### 4 [id number] #### LAB [address] [place], [place] [address] Issa Grayson M.D. [id number] ALT [Catalytic activity/Vol] 8 U/L Normal 0-35 U/L [facility] Comment on above: Order Comment: [facility] has implemented the eGFR calculation approach that does not have a coefficient for race that conforms to the NKF-ASN Task Force Recommendations. Performed By: #### 4 [id number] #### LAB [address] [place] [address] Issa Grayson M.D. [id number] Anion gap [Moles/Vol] 12 mmol/L Normal 10-20 [facility] Comment on above: Order Comment: [facility] has implemented the eGFR calculation approach that does not have a coefficient for race that conforms to the NKF-ASN Task Force Recommendations. Performed By: #### [id number] #### LAB [address] [place] [id number] Issa Grayson M.D. [id number] AST [Catalytic activity/Vol] 14 U/L Normal 0-35 U/L [facility] Comment on above: Order Comment: [facility] has implemented the eGFR calculation approach that does not have a coefficient for race that conforms to the NKF-ASN Task Force Recommendations. Performed By: #### [id number] #### LAB [address] [place] [address] Issa Grayson M.D. [id number] BILIRUBIN TOTAL < Normal 0.0-1.3 [facility] Comment on above: Order Comment: [facility] has implemented the eGFR calculation approach that does not have a coefficient for race that conforms to the NKF-ASN Task Force Recommendations. Performed By: #### [id number] #### LAB [address] [place] [address] Issa Grayson M.D. [id number] Calcium [Mass/Vol] 9.2 mg/dL Normal 8.4-10.2 [facility] Comment on above: Order Comment: [facility] has implemented the eGFR calculation approach that does not have a coefficient for race that conforms to the NKF-ASN Task Force Recommendations. Performed By: #### [id number] #### LAB [address] [place] [address] Issa Grayson M.D. [id number] Chloride [Moles/Vol] 104 mmol/L Normal 98-108 [facility] Comment on above: Order Comment: [facility] has implemented the eGFR calculation approach that does not have a coefficient for race that conforms to the NKF-ASN Task Force Recommendations. Performed By: #### 4 6126 #### LAB [address] [address] Issa Grayson M.D. [id number] Creatinine [Mass/Vol] 0.67 mg/dL Normal 0.40-1.10 [facility] Comment on above: Order Comment: [facility] has implemented the eGFR calculation approach that does not have a coefficient for race that conforms to the NKF-ASN Task Force Recommendations. Performed By: #### 4 6126 #### LAB [address] [id number] Issa Grayson M.D. [id number] EGFR 105 mL/min/1.73 m2 Normal >=60 [facility] Comment on above: Order Comment: [facility] Services has implemented the eGFR calculation approach that does not have a coefficient for race that conforms to the NKF-ASN Task Force Recommendations. Result Comment: Edgardo mated GFR was calculated using the 2020 CKD-EPI creatinine equation. Performed By: #### 4 6126 #### LAB [address] [address] Issa Grayson M.D. [id number] Glucose [Mass/Vol] 84 mg/dL Normal 65-99 [facility] Comment on above: Order Comment: [facility] Services has implemented the eGFR calculation approach that does not have a coefficient for race that conforms to the NKF-ASN Task Force Recommendations. Performed By: #### 4 6126 #### LAB [address] [address] Issa Grayson M.D. [id number] HCO3 (Bld) [Moles/Vol] 28 mmol/L Normal 21-32 [facility] Comment on above: Order Comment: [facility] has implemented the eGFR calculation approach that does not have a coefficient for race that conforms to the NKF-ASN Task Force Recommendations. Performed By: #### 4 6126 #### LAB [address] [address] Issa Grayson M.D. [id number] Potassium [Moles/Vol] 3.9 mmol/L Normal 3.5-5.1 [facility] Comment on above: Order Comment: [facility] Services has implemented the eGFR calculation approach that does not have a coefficient for race that conforms to the NKF-ASN Task Force Recommendations. Performed By: #### 4 6126 #### LAB [address] [address] Issa Grayson M.D. [id number] Protein [Mass/Vol] 7.0 g/dL Normal 6.0-8.0 [facility] Comment on above: Order Comment: [facility] has implemented the eGFR calculation approach that does not have a coefficient for race that conforms to the NKF-ASN Task Force Recommendations. Performed By: #### 4 6126 #### LAB [address] [place], [place] [address] Issa Grayson M.D. [id number] Sodium [Moles/Vol] 140 mmol/L Normal 135-145 [facility] Comment on above: Order Comment: [facility] has implemented the eGFR calculation approach that does not have a coefficient for race that conforms to the NKF-ASN Task Force Recommendations. Performed By: #### 4 6126 #### LAB [address] [place], [place] [address] Issa Grayson M.D. [id number] Urea nitrogen [Mass/Vol] 13 mg/dL Normal 8-25 [facility] Comment on above: Order Comment: [facility] has implemented the eGFR calculation approach that does not have a coefficient for race that conforms to the NKF-ASN Task Force Recommendations. Performed By: #### 4 6126 #### LAB [address] [place], [place] [address] Issa Grayson M.D. [id number] Urea nitrogen/Creatinine [Mass ratio] 19.4 mg/mg Normal 10.0-20.0 [facility] Comment on above: Order Comment: [facility] has implemented the eGFR calculation approach that does not have a coefficient for race that conforms to the NKF-ASN Task Force Recommendations. Performed By: #### 4 6126 #### LAB [address] [place], [place] [address] Issa Grayson M.D. [id number] Comprehensive metabolic 2000 panelon 02-06-2024 Albumin [Mass/Vol] 4.2 g/dL 3.2 - 5.2 g/dL [facility] ALP [Catalytic activity/Vol] 76 U/L 40 - 150 U/L [facility] ALT [Catalytic activity/Vol] 8 U/L 0-35 U/L [facility] Anion gap [Moles/Vol] 12 mmol/L 10 - 20 mmol/L [facility] AST [Catalytic activity/Vol] 14 U/L 0-35 U/L [facility] Bilirubin [Mass/Vol] mg/dL 0.0 - 1 .3 mg/dL [facility] Calcium [Mass/Vol] 9.2 mg/dL 8.4 - 10. 2 mg/dL [facility] Chloride [Moles/Vol] 104 mmol/L 98 - 10 8 mmol/L [facility] Creatinine [Mass/Vol] 0.67 mg/dL 0.40 - 1.10 mg/dL [facility] GFR/1.73 sq M.predicted CKD-EPI (S/P/Bld) [Vol rate/Area] 105 - PINF [facility] Comment on above: Estimated GFR was ca lculated using the 2020 CKD-EPI creatinine equation. Glucose [Mass/Vol] 84 mg/dL 65 - 99 mg/dL [facility] HCO3 [Moles/Vol] 28 mmol/L 21 - 32 mmol/L [facility] Interpretation and review of laboratory results Normal [facility] Potassium [Moles/Vol] 3.9 mmol/L 3.5 - 5.1 mmol/L [facility] Protein [Mass/Vol] 7.0 g/dL 6.0 - 8.0 g/dL [facility] Sodium [Moles/Vol] 140 mmol/L 135 - 145 mmol/L [facility] Urea nitrogen [Mass/Vol] 13 mg/dL 8 - 25 mg/dL [facility] Urea nitrogen/Creatinine [Mass ratio] 19.4 mg/mg 10.0 - 20.0 [facility] has implemented the eGFR calculation approach that does not have a coefficient for race that conforms to the NKF-ASN Task Force Recommendations. [facility] HEMOGLOBIN A1Con 02-06-2024 Glucose [Mass/Vol] 114 mg/dL Normal 74-114 [facility] Comment on above: Performed By: #### 4 8202 #### MH LAB [address] [place], [place] [address] Issa Grayson M.D. [id number] HbA1c (Bld) [Mass fraction] 5.6 % Normal 4.2-5.6 [facility] Comment on above: Performed By: #### 4 8202 #### MH LAB [address] [place], [place] [address] Issa Grayson M.D. [id number] HbA1c (Bld) [Mass fraction]o n 02-06-2024 Average glucose Estimated from glycated hemoglobin (Bld) [Mass/Vol] 114 mg/dL 74 - 114 mg/dL [facility] Interpretation and review of laboratory results Normal [facility] Hemoglobin A1con 02-06-2024 HbA1c (Bld) [Mass fraction] 5.6 % 4.2 - 5.6 % [facility] LIPID PANELon 02-06-2024 Cholesterol [Mass/Vol] 197 mg/dL Normal 100-199 [facility] Comment on above: Performed By: #### 4 6087 #### LAB [address] [address] Issa Grayson M.D. [id number] Cholesterol in HDL [Mass/Vol] 60 mg/dL Normal 40-59 [facility] Comment on above: Performed By: #### 4 6087 #### LAB [address] [address] Issa Grayson M.D. [id number] Cholesterol.total/Ch olesterol in HDL [Mass ratio] 3.3 {ratio} Normal [facility] Comment on above: Result Comment: Fema le Cholesterol/HDL Ratio: Average risk: 4.4 1/2 average risk: 3.3 2 x average risk: 7.1 Performed By: #### 4 6087 #### LAB [address] [address] Issa Grayson M.D. [id number] LDL CHOLESTEROL CALCULATED 125 mg/dL Normal 10-130 [facility] Comment on above: Result Comment: [place] Cholesterol Education Program Guidelines: LDL Cholesterol Optimal: <100 mg/dL Near Optimal/above Optimal: 100-129 mg/dL Borderline High: 130-159 mg/dL High: 160-189 mg/dL Very High: greater than or equal to 190 mg/dL Performed By: #### 4 6092 #### LAB [address] [address] Issa Grayson M.D. [id number] NON HDL CHOL 137 mg/dL Normal [facility] Comment on above: Result Comment: [place] [employer]olesterol [employer] Guidelines: NON HDL Cholesterol Desirable: <130 mg/dL Borderline High: 130-159 mg/dL High: 160-189 mg/dL Very High: > or = 190 mg/dL Performed By: #### 4 6087 #### MH LAB [address] [place], [place] [address] Issa Grayson M.D. [id number] Triglyceride [Mass/Vol] 62 mg/dL Normal 30-150 [facility] Comment on above: Performed By: #### 4 6087 #### LAB [address] [place], [place] [address] Issa Grayson M.D. [id number] Lipid 1996 panelon Cholesterol [Mass/Vol] 197 mg/dL 100 - 199 mg/dL [facility] Cholesterol in HDL [Mass/Vol] 60 mg/dL 40 - 59 mg/dL [facility] Cholesterol in LDL [Mass/Vol] 125 mg/dL 10 - 130 mg/dL [facility] Comment on above: National Cholesterol Education Program Guidelines: LDL Cholesterol Optimal: <100 mg/dL Near Optimal/above Optimal: 100-129 mg/dL Borderline High: 130-159 mg/dL High: 160-189 mg/dL Very High: greater than or equal to 190 mg/dL Cholesterol non HDL [Mass/Vol] 137 mg/dL [facility] Comment on above: National Cholesterol Education Program Guidelines: NON HDL Cholesterol Desirable: <130 mg/dL Borderline High: 130-159 mg/dL High: 160-189 mg/dL Very High: > or = 190 mg/dL Cholesterol.total/Ch olesterol in HDL [Mass ratio] 3.3 {ratio} ratio [facility] Comment on above: Female Cholesterol/H DL Ratio: Average risk: 4.4 1/2 average risk: 3.3 2 x average risk: 7.1 Triglyceride [Mass/Vol] 62 mg/dL 30 - 150 mg/dL [facility] No Panel Informationon 02-05 [facility] T4, FREEon 02-06-2024 Free T4 [Mass/Vol] 1.4 ng/dL Normal 0.7-1.7 [facility] Comment on above: Performed By: #### 4 6567 #### MH LAB [address] [id number] Issa Grayson M.D. [id number] TSH DL <= 0.005 mIU/L Qnon 0 02-06-2024 Interpretation and review of laboratory results Abnormal [facility] TSH Qn 0.20 m[IU]/L Low [facility] TSH WITH REFLEX FREE T4on TSH Qn 0.20 m[IU]/L Low 0.27-4.20 [facility] Comment on above: Performed By: #### 4 6612 #### LAB [address] [place], [place] [address] Issa Grayson M.D. [id number] Low Dose CT Lung Screeningon 02-04-[address] Lung Screening [facility] Imaging Services [address] [place] [address] Lung Screening MR#: [id number] Acct: [id number] Name: FCO GARNETT Rep #: [id number] : 1970 F 53 From: Ricky jonas MD PCP: KIRSTIE HINES Status: [facility] CL Study: Low Dose CT Lung Screening Date of Exam: 02/03 Exam# [id number] Ordering Dr: Bette Luevano NP COMMODITY MANAGER -[id number] STUDY: LOW DOSE CT LUNG CANCER SCREENING REASON FOR EXAM: Female, 53 years old. Lung cancer screening -- and gt;20 pk yr hx; former smoker; asymptomatic RADIATION DOSAGE (If Supplied By Facility): CTDIvol = ( 2.39 ) mGy, DLP = ( 68.18 ) mGycm TECHNIQUE: No contrast was administered. Low dose technique was utilized (average mAS-38 and kVp 120). 1.25 mm axial source images with a slice interval of 1.25-mm were reconstructed in lung windows. 2.5 mm axial source images with a slice interval of 2.5-mm were reconstructed in lung windows. 5.0 mm axial source images with a slice interval of 5.0-mm were reconstructed in soft tissue windows. COMPARISON: Comparison is made with prior study dated April 30, 2023. NODULES: No suspicious nodules are seen. Emphysema: Stable mild scarring in the right middle lobe. Endobronchial lesion: None Aorta: Unremarkable CORONARY ARTERIES: Coronary artery calcification is not seen. Heart: Unremarkable Pulmonary artery: Unremarkable Mediastinal nodes: Unremarkable Other chest and abdominal findings: CT/Low Dose CT Lung Screening IMPRESSION: Lung-RADS category 2 - Continue annual screening with LDCT in 12 months. IMPORTANT NOTES FOR USE: ACR Lung-RADS Version 1.1 Assessment Categories Release Date: 2018 Category: Coded 0-4 bases on nodule(s) with highest degree of suspicion. Negative screen is defined as categories 1 and 2; a positive screen is defined as categories 3 and 4. Category 3 and 4A nodules that are unchanged on interval CT should be coded as category 2, and individuals returned to screening in 12 months. Category 4X: Category 3 or 4 nodules with additional imaging findings that increase the suspicion of lung cancer, such as spiculation, GGN that doubles in size in 1 year, enlarged lymph notes, etc. Category Modifiers: S (significant finding unrelated to lung cancer) Electronically Signed: Ricky Martell MD at 14:24 EDT Reading Location ID and State: [facility] / [place] , Service support , CC: FLEX Luevano; YOLANDA MILLER Line Lead: Signed Normal [facility] Oncology Visit Reporton 01-25 Oncology Visit Report [facility] [address] [place] [address] OFFICE VISIT Date of Service: 02/04/24 1330 MR#: [id number] Acct: [id number] Name: FCO GARNETT Ladonna Rep #: [id number] : 1970 From: Bette Claros Age/Sex: 53/F Location[facility] Status: Signed HPI HPI Reviewed eligibility criteria: 53 year old F with a 40 ([id number]) pack year history. Smoking Status: Former smoker (Quit smoking 09/2017.) Decision Making Engaged in shared decision making visit utilizing a visual aid. Discussed the risks and benefits of lung cancer screening including the total radiation exposure, false positive rate, over diagnosis and potential need for follow-up diagnostic testing all associated with low-dose chest CT. ROS Const Denies anorexia, Denies fatigue, Denies headache(s), Denies poor appetite and Denies weight loss ENT Denies headache(s) Card Denies chest pain, Denies dyspnea and Denies palpitations Resp Denies cough, Denies dyspnea, Denies hemoptysis and Denies wheezing GI Reports system reviewed and no additional complaints, except as documented Musc Reports system reviewed and no additional complaints, except as documented Skin/Breast Reports system reviewed and no additional complaints, except as documented Neuro Yes system reviewed and no additional complaints, except as documented and No headache(s) Psych Reports system reviewed and no additional complaints, except as documented Endo Reports system reviewed and no additional complaints, except as documented, Denies fatigue and Denies palpitations Leonid/Lymph Reports system reviewed and no additional complaints, except as documented Aller/Immun Denies wheezing Exam Const General: not in acute distress Orientation: oriented x3 HENMT Head: normocephalic and atraumatic Neck Neck: supple and no lymphadenopathy noted Resp Effort Inspection: normal respiratory effort and symmetric chest movement Auscultation: Bilateral: Clear to Auscultation Cardio Rate: regular rate Rhythm: regular rhythm Heart Sounds: S1 normal and S2 normal Psych Affect: normal affect Speech and Movement: speech and movement normal Results Results February 04, [address] Lung Screening COMPARISON: Comparison is made with prior study dated April 30, 2023. NODULES: No suspicious nodules are seen. Emphysema: Stable mild scarring in the right middle lobe. Endobronchial lesion: None Aorta: Unremarkable CORONARY ARTERIES: Coronary artery calcification is not seen. Heart: Unremarkable Pulmonary artery: Unremarkable Mediastinal nodes: Unremarkable Other chest and abdominal findings: IMPRESSION: Lung-RADS category 2 - Continue annual screening with LDCT in 12 months. IMPORTANT NOTES FOR USE: ACR Lung-RADS Version 1.1 Assessment Categories Release Date: 2018 Category: Coded 0-4 bases on nodule(s) with highest degree of suspicion. Negative screen is defined as categories 1 and 2; a positive screen is defined as categories 3 and 4. Category 3 and 4A nodules that are unchanged on interval CT should be coded as category 2, and individuals returned to screening in 12 months. Category 4X: Category 3 or 4 nodules with additional imaging findings that increase the suspicion of lung cancer, such as spiculation, GGN that doubles in size in 1 year, enlarged lymph notes, etc. Category Modifiers: S (significant finding unrelated to lung cancer) Intake Vital Signs 07/15/23 13:42 02/04/24 13:33 Height 5 ft 4 in 5 ft 4 in Weight: 169 lb 6 oz BMI 29.0 BP 125/82 H Blood Pressure Location Rt brachial Position Sitting Respiration 18 Pulse 84 Pulse Source Monitor Temp 97.5 F L Temp Source Temporal Pulse Oximetry (%) 98 Oxygen Delivery Method room air Intake Visit Reasons: Lung Cancer Screening Is patient in pain?: No Allergies No Known Allergies Allergy (Verified 02/04/24 13:33) Medications ???Medication ???Instructions ???Recorded ???Confirmed ???Type levothyroxine 50 mcg tablet 100 mcg PO DAILY 10/07/17 02/04/24 History duloxetine 30 mg capsule,delayed 30 mg PO DAILY 10/01/18 02/04/24 History release Pilocarpine Hcl [Salagen] 5 mg PO TID xerostomia #90 tabs 01/04/20 02/04/24 Rx vitamin E 670 mg (1,000 unit) 1,000 unit PO DAILY #90 CAPSULES 08/10/20 02/04/24 Rx capsule Pilocarpine Hcl [Salagen] 5 mg PO TID xerostomia #270 TABLETS 01/09/21 02/04/24 Rx pilocarpine HCl 5 mg tablet 5 mg PO TID xerostomia #270 tabs 01/09/21 02/04/24 Rx pentoxifylline 400 mg 400 mg PO TID #270 TABLETS 09/14/21 02/04/24 Rx tablet,extended release pentoxifylline 400 mg 400 mg PO TID fibrosis #90 tabs 06/17/23 02/04/24 Rx tablet,extended release pilocarpine HCl 7.5 mg tablet 7.5 mg PO ONCE dry mouth #90 tabs 01 (more content not included)... Normal [facility] SCRN MAMM (CAD)W/MARKEL Gutierrez n 02-04-2024 SCRN MAMM (CAD)W/MARKEL MANCUSO [facility] Imaging Services [address] [place] [address] SCRN MAMM (CAD)W/MARKEL BILAT MR#: [id number] Acct: [id number] Name: FCO GARNETT Rep #: [id number] : 1970 F 53 From: Ricky jonas MD PCP: KIRSTIE HINES Status: REG CL Study: SCRN MAMM (CAD)W/MARKEL BILAT Date of Exam: 01/25 Exam# [id number] Ordering Dr: Gloria Goode [place] [id number] MAMMOGRAPHY - BILATERAL SCREENING REASON FOR EXAM: Female, 53 years old. Routine annual screening examination. PERTINENT HISTORY: Non-contributory. TECHNIQUE: Digital bilateral breast markel (3D mammographic acquisition) in the CC and MLO projections. 2-D mediolateral oblique (MLO) and craniocaudad (CC) views of both breasts were obtained. CAD: Full Field Digital Mammography with Computer Added Detection was performed. COMPARISON: Comparison is made with prior study dated January 29, 2023 and November 28, 2021. FINDINGS: Breast Composition: The breasts are heterogeneously dense, which may obscure small masses. There are no dominant masses or suspicious calcifications. No other significant abnormalities are identified. There has been no significant change since the prior study. BI/SCRN MAMM (CAD)W/MARKEL BILAT IMPRESSION: Stable bilateral screening mammogram. Yearly follow-up mammogram recommended. (A) ASSESSMENT CATEGORY: BIRADS Category 1: Negative. A letter regarding these results will be sent to the patient by the facility within 30 days. Approximately 10% of breast cancers are not detected by mammography. A normal mammogram should not delay biopsy of a clinically suspicious abnormality. [id number] Electronically Signed: Ricky Martell MD at 14:00 EDT , CC: YOLANDA MILLER; Dr. Gloria Goode MD Line Lead: Signed Normal [facility] CBC W Auto Differential pane l (Bld)on 06-02-2023 Basophils (Bld) [#/Vol] 0.04 10*3/uL [facility] Basophils/100 WBC (Bld) 0.6 % 0.0 - 2.0 % [facility] Eosinophils (Bld) [#/Vol] 0.28 10*3/uL [facility] Eosinophils/100 WBC (Bld) 4.3 % 0.0 - 6.0 % [facility] Erythrocyte distribution width (RBC) [Ratio] 13.2 % 11.5 - 14.5 % [facility] Hematocrit (Bld) [Volume fraction] 41.1 % 36.0 - 46.0 % [facility] Hemoglobin (Bld) [Mass/Vol] 13.2 g/dL 12.0 - 16.0 g/dL [facility] Immature granulocytes (Bld) [#/Vol] 0.02 10*3/uL [facility] Immature granulocytes/100 WBC (Bld) 0.3 % 0.0 - 0.9 % [facility] Comment on above: Immature Granulocyte Count (IG) includes promyelocytes, myelocytes and metamyelocytes but does not include bands. Percent differential counts (%) should be interpreted in the context of the absolute cell counts (cells/UL). Interpretation and review of laboratory results Abnormal [facility] Lymphocytes (Bld) [#/Vol] 0.71 10*3/uL Low [facility] Lymphocytes/100 WBC (Bld) 10.8 % 13.0 - 44.0 % [facility] MCH (RBC) [Entitic mass] 30.5 pg 26.0 - 34.0 pg [facility] MCHC (RBC) [Mass/Vol] 32.1 g/dL 32.0 - 36.0 g/dL [facility] MCV (RBC) [Entitic vol] 95 fL 80 - 100 fL [facility] Monocytes (Bld) [#/Vol] 0.38 10*3/uL [facility] Monocytes/100 WBC (Bld) 5.8 % 2.0 - 10.0 % [facility] Neutrophils (Bld) [#/Vol] 5.15 10*3/uL [facility] Comment on above: Percent differential counts (%) should be interpreted in the context of the absolute cell counts (cells/uL). Neutrophils/100 WBC (Bld) 78.2 % 40.0 - 80.0 % [facility] Nucleated RBC/100 WBC (Bld) [Ratio] 0.0 % [facility] Platelets (Bld) [#/Vol] 258 10*3/uL [facility] RBC (Bld) [#/Vol] 4.33 10*6/uL [facility] WBC (Bld) [#/Vol] 6.6 10*3/uL [facility] Basophils (Bld) [#/Vol] 0.04 x10*3/uL Normal 0.00-0.10 [facility] Comment on above: Performed By: #### 5 7021-8 #### BINU ROGER ([id number]) LAB ([facility]) [address] [place] [address] Basophils/100 WBC (Bld) 0.6 % Normal 0.0-2.0 [facility] Comment on above: Performed By: #### 5 7021-8 #### BINU ROGER ([id number]) LAB ([facility]) [address] [place] [address]2657 Eosinophils (Bld) [#/Vol] 0.28 x10*3/uL Normal 0.00-0.70 [facility] Comment on above: Performed By: #### 5 7021-8 #### BINU ROGER ([id number]) LAB ([facility]) [address] [place] [address] 527[address] Eosinophils/100 WBC (Bld) 4.3 % Normal 0.0-6.0 [facility] Comment on above: Performed By: #### 5 7021-8 #### BINU ROGER ([id number]) LAB ([facility]) [address] [place] [address] 43977 Erythrocyte distribution width (RBC) [Ratio] 13.2 % Normal 11.5-14.5 [facility] Comment on above: Performed By: #### 5 7021-8 #### BINU ROGER ([id number]) LAB ([facility]) [address] [place] [address] 11018 Hematocrit (Bld) [Volume fraction] 41.1 % Normal 36.0-46.0 [facility] Comment on above: Performed By: #### 5 7021-8 #### BINU ROGER ([id number]) LAB ([facility]) [address] [place] [address] 81131 Hemoglobin (Bld) [Mass/Vol] 13.2 g/dL Normal 12.0-16.0 [facility] Comment on above: Performed By: #### 5 7021-8 #### BINU ROGER ([id number]) LAB ([facility]) [address] [place] [address] 28537 Immature granulocytes (Bld) [#/Vol] 0.02 x10*3/uL Normal 0.00-0.70 [facility] Comment on above: Performed By: #### 5 7021-8 #### BINU ROGER ([id number]) LAB ([facility]) [address] [place] [address] 48175 Immature granulocytes/100 WBC (Bld) 0.3 % Normal 0.0-0.9 [facility] Comment on above: Result Comment: Tali ture Granulocyte Count (IG) includes promyelocytes, myelocytes and metamyelocytes but does not include bands. Percent differential counts (%) should be interpreted in the context of the absolute cell counts (cells/UL). Performed By: #### 5 7021-8 #### BINU ROGER ([id number]) LAB ([facility]) [address] [place] [address] 27036 Lymphocytes (Bld) [#/Vol] 0.71 x10*3/uL Low 1.20-4.80 [facility] Comment on above: Performed By: #### 5 7021-8 #### BINU ROGER ([id number]) LAB ([facility]) [address] [place] [address] 94867 Lymphocytes/100 WBC (Bld) 10.8 % Normal 13.0-44.0 [facility] Comment on above: Performed By: #### 5 7021-8 #### BINU ROGER ([id number]) LAB ([facility]) [address] [place] [address] 05091 MCH (RBC) [Entitic mass] 30.5 pg Normal 26.0-34.0 [facility] Comment on above: Performed By: #### 5 7021-8 #### BINU ROGER ([id number]) LAB ([facility]) [address] [place] [address] 23310 MCHC (RBC) [Mass/Vol] 32.1 g/dL Normal 32.0-36.0 [facility] Comment on above: Performed By: #### 5 7021-8 #### BINU ROGER ([id number]) LAB ([facility]) [address] [place] [address] 90219 MCV (RBC) [Entitic vol] 95 fL Normal 80-100 [facility] Comment on above: Performed By: #### 5 7021-8 #### BINU ROGER ([id number]) LAB ([facility]) [address] [place] [address] 61326 Monocytes (Bld) [#/Vol] 0.38 x10*3/uL Normal 0.10-1.00 [facility] Comment on above: Performed By: #### 5 7021-8 #### BINU ROGER ([id number]) LAB ([facility]) [address] [place] [address] 87179 Monocytes/100 WBC (Bld) 5.8 % Normal 2.0-10.0 [facility] Comment on above: Performed By: #### 5 7021-8 #### BINU ROGER ([id number]) LAB ([facility]) [address] [place] [address] 39592 Neutrophils (Bld) [#/Vol] 5.15 x10*3/uL Normal 1.20-7.70 [facility] Comment on above: Result Comment: Perc ent differential counts (%) should be interpreted in the context of the absolute cell counts (cells/uL). Performed By: #### 5 7021-8 #### BINU ROGER ([id number]) LAB ([facility]) [address] [place] [address] 71366 Neutrophils/100 WBC (Bld) 78.2 % Normal 40.0-80.0 [facility] Comment on above: Performed By: #### 5 7021-8 #### BINU ROGER ([id number]) LAB ([facility]) [address] [place] [address] 23234 Nucleated RBC/100 WBC (Bld) [Ratio] 0.0 /100 WBCs Normal 0.0-0.0 [facility] Comment on above: Performed By: #### 5 7021-8 #### BINU ROGER ([id number]) LAB ([facility]) [address] [place] [address] 23829 Platelets (Bld) [#/Vol] 258 x10*3/uL Normal 150-450 [facility] Comment on above: Performed By: #### 5 7021-8 #### BINU ROGER ([id number]) LAB ([facility]) [address] [place] [address] 31869 RBC (Bld) [#/Vol] 4.33 x10*6/uL Normal 4.00-5.[address] [facility] Comment on above: Performed By: #### 5 7021-8 #### BINU ROGER ([id number]) LAB ([facility]) [address] [place] [address] 09045 WBC (Bld) [#/Vol] 6.6 x10*3/uL Normal 4.4-11.3 [facility] Comment on above: Performed By: #### 5 7021-8 #### SCHMID KANA ([id number]) LAB ([facility]) [address] [place] [address] Comprehensive metabolic 2000 panelon 06-02-2023 Albumin BCP dye [Mass/Vol] 3.9 g/dL 3.4 - 5.0 g/dL [facility] ALP [Catalytic activity/Vol] 76 U/L 33 - 110 U/L [facility] ALT With P-5'-P [Catalytic activity/Vol] 8 U/L 7 - 45 U/L [facility] Comment on above: Patients treated wit h Sulfasalazine may generate falsely decreased results for ALT. Anion gap [Moles/Vol] 10 mmol/L 10 - 20 mmol/L [facility] AST With P-5'-P [Catalytic activity/Vol] 10 U/L 9 - 39 U/L [facility] Bilirubin [Mass/Vol] 0.4 mg/dL 0.0 - 1 .2 mg/dL [facility] Calcium [Mass/Vol] 8.8 mg/dL 8.6 - 10. 3 mg/dL [facility] Chloride [Moles/Vol] 104 mmol/L 98 - 10 7 mmol/L [facility] CO2 [Moles/Vol] 27 mmol/L 21 - 32 mmol/L [facility] Creatinine [Mass/Vol] 0.72 mg/dL 0.50 - 1.05 mg/dL [facility] GFR/1.73 sq M.predicted MDRD (S/P/Bld) [Vol rate/Area] - PINF [facility] Comment on above: Calculations of edgrado mated GFR are performed using the 2020 CKD-EPI Study Refit equation without the race variable for the IDMS-Traceable creatinine methods. https://jasn.asnjournals.org/content/early/ASN.5371529 988 Glucose [Mass/Vol] 92 mg/dL 74 - 99 mg/dL [facility] Potassium [Moles/Vol] 3.9 mmol/L 3.5 - 5.3 mmol/L [facility] Protein [Mass/Vol] 6.7 g/dL 6.4 - 8.2 g/dL [facility] Sodium [Moles/Vol] 137 mmol/L 136 - 145 mmol/L [facility] Urea nitrogen [Mass/Vol] 10 mg/dL 6 - 23 mg/dL [facility] Albumin BCP dye [Mass/Vol] 3.9 g/dL Normal 3.4-5.0 [facility] Comment on above: Performed By: #### 2 4323-8 #### BINU ROGER ([id number]) LAB ([facility]) [address] [place] [address] 06058 ALP [Catalytic activity/Vol] 76 U/L Normal 33-110 [facility] Comment on above: Performed By: #### 2 4323-8 #### BINU ROGER ([id number]) LAB ([facility]) [address] [place] [address] 58182 ALT With P-5'-P [Catalytic activity/Vol] 8 U/L Normal 7-45 [facility] Comment on above: Result Comment: Laureen ents treated with Sulfasalazine may generate falsely decreased results for ALT. Performed By: #### 2 4323-8 #### BINU ROGER ([id number]) LAB ([facility]) [address] [place] [address] 57525 Anion gap [Moles/Vol] 10 mmol/L Normal 10-20 [facility] Comment on above: Performed By: #### 2 4323-8 #### BINU ROGER ([id number]) LAB ([facility]) [facility] [place] [address] AST With P-5'-P [Catalytic activity/Vol] 10 U/L Normal 9-39 [facility] Comment on above: Performed By: #### 2 4323-8 #### BINU ROGER ([id number]) LAB ([facility]) [address] [place] [address] 01104 Bilirubin [Mass/Vol] 0.4 mg/dL Normal 0.0-1.[address] [facility] Comment on above: Performed By: #### 2 4323-8 #### BINU ROGER ([id number]) LAB ([facility]) [facility] [place] [address] Calcium [Mass/Vol] 8.8 mg/dL Normal 8.6-10.3 [facility] Comment on above: Performed By: #### 2 4323-8 #### BINU ROGER ([id number]) LAB ([facility]) [address] [place] [address] 05030 Chloride [Moles/Vol] 104 mmol/L Normal 98-[address] [facility] Comment on above: Performed By: #### 2 4323-8 #### BINU ROGER ([id number]) LAB ([facility]) [address] [place] [address] 37476 CO2 [Moles/Vol] 27 mmol/L Normal 21-32 [facility] Comment on above: Performed By: #### 2 4323-8 #### BINU ROGER ([id number]) LAB ([facility]) [address] [place] [address] 10886 Creatinine [Mass/Vol] 0.72 mg/dL Normal 0.50-1.05 [facility] Comment on above: Performed By: #### 2 4323-8 #### BINU ROGER ([id number]) LAB ([facility]) [address] [place] [address] 45176 GFR/1.73 sq M.predicted MDRD (S/P/Bld) [Vol rate/Area] mL/min/{1.73_m2} Normal >60 [facility] Comment on above: Result Comment: Calc ulations of estimated GFR are performed using the 2020 CKD-EPI Study Refit equation without the race variable for the IDMS-Traceable creatinine methods. https://jasn.asnjournals.org/content/early/ASN.3494018 988 Performed By: #### 2 4323-8 #### BINU ROGER ([id number]) LAB ([facility]) [address] [place] [address] 60856 Glucose [Mass/Vol] 92 mg/dL Normal 74-99 [facility] Comment on above: Performed By: #### 2 4323-8 #### BINU ROGER ([id number]) LAB ([facility]) [address] [place] [address] 58202 Potassium [Moles/Vol] 3.9 mmol/L Normal 3.5-5.3 [facility] Comment on above: Performed By: #### 2 4323-8 #### BINU ROGER ([id number]) LAB ([facility]) [address] [place] [address] 11826 Protein [Mass/Vol] 6.7 g/dL Normal 6.4-8.2 [facility] Comment on above: Performed By: #### 2 4323-8 #### BINU ROGER ([id number]) LAB ([facility]) [address] [place] [address] 20961 Sodium [Moles/Vol] 137 mmol/L Normal 136-145 [facility] Comment on above: Performed By: #### 2 4323-8 #### BINU ROGER ([id number]) LAB ([facility]) [address] [place] [address] 37520 Urea nitrogen [Mass/Vol] 10 mg/dL Normal 6-23 [facility] Comment on above: Performed By: #### 2 4323-8 #### BINU ROGER ([id number]) LAB ([facility]) [address] [place] [address] 10599 ECG 12-LEADon 06-02-2023 ECG 12-LEAD Ventricular Rate 88 Atrial Rate 88 P-R Interval 188 QRS Duration 104 Q-T Interval 348 QTC Calculation(Bazett) 421 P [place] 57 R [place] 21 T [place] 40 QRS Count 15 Q Onset 222 P Onset 128 P Offset 191 T Offset 396 QTC Fredericia 395 Diagnosis Normal sinus rhythm Low voltage QRS ST & T wave abnormality, consider anterolateral ischemia Abnormal ECG When compared with ECG of 02-JUN-2023 15:21, (unconfirmed) Sinus rhythm has replaced Junctional rhythm Questionable change in QRS duration See ED provider note for full interpretation and clinical correlation Confirmed by Sandor Davis ([id number]) on 06/05/2023 4:15:17 PM Normal [facility] Influenza virus A and B and SARS-CoV-2 (COVID-19) identified YARIEL+probe Nom (Resp)on 06-02-2023 FLUAV RNA YARIEL+probe Ql (Resp) Not detected Not Detected [facility] FLUBV RNA YARIEL+probe Ql (Resp) Not detected Not Detected [facility] Interpretation and review of laboratory results Normal [facility] SARS-CoV-2 (COVID-19) RNA YARIEL+probe Ql (Resp) Not detected Not Detected [facility] This assay has received [facility] Emergency Use Authorization (EUA) and is only authorized for the duration of time that circumstances exist to justify the authorization of the emergency use of in vitro diagnostic tests for the detection of SARS-CoV-2 virus and/or diagnosis of COVID-19 infection under section 564(b)(1) of the Act, 21 U.S.C. 360bbb-3(b)(1). Testing for SARS-CoV-2 is only recommended for patients who meet current clinical and/or epidemiological criteria as defined by federal, state, or local public health directives. This assay is an in vitro diagnostic nucleic acid amplification test for the qualitative detection of SARS-CoV-2, Influenza A, and Influenza B from nasopharyngeal specimens and has been validated for use at [facility]. Negative results do not preclude COVID-19 infections or Influenza A/B infections, and should not be used as the sole basis for diagnosis, treatment, or other management decisions. If Influenza A/B and RSV PCR results are negative, testing for Parainfluenza virus, Adenovirus and Metapneumovirus is routinely performed for [facility] pediatric oncology and intensive care inpatients, and is available on other patients by placing an add-on request. [facility] FLUAV RNA YARIEL+probe Ql (Resp) Not detected Normal Not Detected [facility] Comment on above: Order Comment: This assay has received FDA Emergency Use Authorization (EUA) and is only authorized for the duration of time that circumstances exist to justify the authorization of the emergency use of in vitro diagnostic tests for the detection of SARS-CoV-2 virus and/or diagnosis of COVID-19 infection under section 564(b)(1) of the Act, 21 U.S.C. 360bbb-3(b)(1). Testing for SARS-CoV-2 is only recommended for patients who meet current clinical and/or epidemiological criteria as defined by federal, state, or local public health directives. This assay is an in vitro diagnostic nucleic acid amplification test for the qualitative detection of SARS-CoV-2, Influenza A, and Influenza B from nasopharyngeal specimens and has been validated for use at [facility]. Negative results do not preclude COVID-19 infections or Influenza A/B infections, and should not be used as the sole basis for diagnosis, treatment, or other management decisions. If Influenza A/B and RSV PCR results are negative, testing for Parainfluenza virus, Adenovirus and Metapneumovirus is routinely performed for [facility] pediatric oncology and intensive care inpatients, and is available on other patients by placing an add-on request. Performed By: #### 9 5423-0 #### SCHMID KANA ([id number]) LAB ([facility]) [address] [place] [address] FLUBV RNA YARIEL+probe Ql (Resp) Not detected Normal Not Detected [facility] Comment on above: Order Comment: This assay has received FDA Emergency Use Authorization (EUA) and is only authorized for the duration of time that circumstances exist to justify the authorization of the emergency use of in vitro diagnostic tests for the detection of SARS-CoV-2 virus and/or diagnosis of COVID-19 infection under section 564(b)(1) of the Act, 21 U.S.C. 360bbb-3(b)(1). Testing for SARS-CoV-2 is only recommended for patients who meet current clinical and/or epidemiological criteria as defined by federal, state, or local public health directives. This assay is an in vitro diagnostic nucleic acid amplification test for the qualitative detection of SARS-CoV-2, Influenza A, and Influenza B from nasopharyngeal specimens and has been validated for use at [facility]. Negative results do not preclude COVID-19 infections or Influenza A/B infections, and should not be used as the sole basis for diagnosis, treatment, or other management decisions. If Influenza A/B and RSV PCR results are negative, testing for Parainfluenza virus, Adenovirus and Metapneumovirus is routinely performed for [facility] pediatric oncology and intensive care inpatients, and is available on other patients by placing an add-on request. Performed By: #### 9 5423-0 #### BINU ROGER ([id number]) LAB ([facility]) [facility] [place] [id number] SARS-CoV-2 (COVID-19) RNA YARIEL+probe Ql (Resp) Not detected Normal Not Detected [facility] Comment on above: Order Comment: This assay has received FDA Emergency Use Authorization (EUA) and is only authorized for the duration of time that circumstances exist to justify the authorization of the emergency use of in vitro diagnostic tests for the detection of SARS-CoV-2 virus and/or diagnosis of COVID-19 infection under section 564(b)(1) of the Act, 21 U.S.C. 360bbb-3(b)(1). Testing for SARS-CoV-2 is only recommended for patients who meet current clinical and/or epidemiological criteria as defined by federal, state, or local public health directives. This assay is an in vitro diagnostic nucleic acid amplification test for the qualitative detection of SARS-CoV-2, Influenza A, and Influenza B from nasopharyngeal specimens and has been validated for use at [facility]. Negative results do not preclude COVID-19 infections or Influenza A/B infections, and should not be used as the sole basis for diagnosis, treatment, or other management decisions. If Influenza A/B and RSV PCR results are negative, testing for Parainfluenza virus, Adenovirus and Metapneumovirus is routinely performed for [facility] pediatric oncology and intensive care inpatients, and is available on other patients by placing an add-on request. Performed By: #### 9 5423-0 #### BINU ROGER ([id number]) LAB ([facility]) [facility] [place] [address] Magnesiumon 06-02-2023 Magnesium [Mass/Vol] 1.97 mg/dL 1.60 - 2.40 mg/dL [facility] Magnesium [Mass/Vol] 1.97 mg/dL Normal 1.60-2.[address] [facility] Comment on above: Performed By: #### 1 9123-9 #### BINU ROGER ([id number]) LAB ([facility]) [facility] [place] [address] No Panel Informationon 06-02 [facility] Interpretation and review of laboratory results Normal [facility] RSV PCRon 06-02-2023 RSV RNA YARIEL+probe Ql (Resp) Detected Abnormal Not Detected [facility] RSV RNA YARIEL+probe Ql (Resp)o n 06-02-2023 Interpretation and review of laboratory results Abnormal [facility] This assay is an FDA-cleared, in vitro diagnostic nucleic acid amplification test for the detection of RSV from nasopharyngeal specimens, and has been validated for use at [facility]. Negative results do not preclude RSV infections, and should not be used as the sole basis for diagnosis, treatment, or other management decisions. If Influenza A/B and RSV PCR results are negative, testing for Parainfluenza virus, Adenovirus and Metapneumovirus is routinely performed for pediatric oncology and intensive care inpatients at [facility], and is available on other patients by placing an add-on request. [facility] Respiratory syncytial virus RNAon 06-02-2023 RSV RNA YARIEL+probe Ql (Resp) Detected Abnormal Not Detected [facility] Comment on above: Order Comment: This assay is an FDA-cleared, in vitro diagnostic nucleic acid amplification test for the detection of RSV from nasopharyngeal specimens, and has been validated for use at [facility]. Negative results do not preclude RSV infections, and should not be used as the sole basis for diagnosis, treatment, or other management decisions. If Influenza A/B and RSV PCR results are negative, testing for Parainfluenza virus, Adenovirus and Metapneumovirus is routinely performed for pediatric oncology and intensive care inpatients at [facility], and is available on other patients by placing an add-on request. Performed By: #### 9 2131-2 #### BINU ROGER ([id number]) LAB ([facility]) [address] [place] [address] Tropinin I.cardiac panel Hig h sensitivity methodon 06-02-2023 Interpretation and review of laboratory results Normal [facility] Less than 99th percentile of normal range cutoff- Female and children under 18 years old <14 ng/L; Male <21 ng/L: Negative Repeat testing should be performed if clinically indicated. Female and children under 18 years old 14-50 ng/L; Male 21-50 ng/L: Consistent with possible cardiac damage and possible increased clinical risk. Serial measurements may help to assess extent of myocardial damage. >50 ng/L: Consistent with cardiac damage, increased clinical risk and myocardial infarction. Serial measurements may help assess extent of myocardial damage. NOTE: Children less than 1 year old may have higher baseline troponin levels and results should be interpreted in conjunction with the overall clinical context. NOTE: Troponin I testing is performed using a different testing methodology at [facility] than at other [facility]. Direct result comparisons should only be made within the same method. [facility] Interpretation and review of laboratory results Normal [facility] Less than 99th percentile of normal range cutoff- Female and children under 18 years old <14 ng/L; Male <21 ng/L: Negative Repeat testing should be performed if clinically indicated. Female and children under 18 years old 14-50 ng/L; Male 21-50 ng/L: Consistent with possible cardiac damage and possible increased clinical risk. Serial measurements may help to assess extent of myocardial damage. >50 ng/L: Consistent with cardiac damage, increased clinical risk and myocardial infarction. Serial measurements may help assess extent of myocardial damage. NOTE: Children less than 1 year old may have higher baseline troponin levels and results should be interpreted in conjunction with the overall clinical context. NOTE: Troponin I testing is performed using a different testing methodology at [facility] than at other [facility]. Direct result comparisons should only be made within the same method. [facility] Troponin I, High Sensitivity , Initialon 06-02-2023 Tropinin I.cardiac panel High sensitivity method ng/L 0 - 13 ng/L [facility] Troponin I.cardiac panelon 0 06-02-2023 Tropinin I.cardiac panel High sensitivity method <3 Normal 0-13 [facility] Comment on above: Order Comment: Less than 99th percentile of normal range cutoff- Female and children under 18 years old <14 ng/L; Male <21 ng/L: Negative Repeat testing should be performed if clinically indicated. Female and children under 18 years old 14-50 ng/L; Male 21-50 ng/L: Consistent with possible cardiac damage and possible increased clinical risk. Serial measurements may help to assess extent of myocardial damage. >50 ng/L: Consistent with cardiac damage, increased clinical risk and myocardial infarction. Serial measurements may help assess extent of myocardial damage. NOTE: Children less than 1 year old may have higher baseline troponin levels and results should be interpreted in conjunction with the overall clinical context. NOTE: Troponin I testing is performed using a different testing methodology at [facility] than at other [facility]. Direct result comparisons should only be made within the same method. Performed By: #### 8 9577-1 #### BINU ROGER ([id number]) LAB ([facility]) [facility] [place] [address] Tropinin I.cardiac panel High sensitivity method <3 Normal 0-13 [facility] Comment on above: Order Comment: Less than 99th percentile of normal range cutoff- Female and children under 18 years old <14 ng/L; Male <21 ng/L: Negative Repeat testing should be performed if clinically indicated. Female and children under 18 years old 14-50 ng/L; Male 21-50 ng/L: Consistent with possible cardiac damage and possible increased clinical risk. Serial measurements may help to assess extent of myocardial damage. >50 ng/L: Consistent with cardiac damage, increased clinical risk and myocardial infarction. Serial measurements may help assess extent of myocardial damage. NOTE: Children less than 1 year old may have higher baseline troponin levels and results should be interpreted in conjunction with the overall clinical context. NOTE: Troponin I testing is performed using a different testing methodology at [facility] than at other [facility]. Direct result comparisons should only be made within the same method. Performed By: #### 8 9577-1 #### BINU ROGER ([id number]) LAB ([facility]) [facility] [place] [address] Troponin, High Sensitivity, 1 Houron 06-02-2023 Tropinin I.cardiac panel High sensitivity method ng/L 0 - 13 ng/L [facility] XR CHEST 2 VIEWSon 4 XR CHEST 2 VIEWS Interpreted By: Murray Marquez, STUDY: XR CHEST 2 VIEWS; 06/02/2023 4:21 pm INDICATION: Signs/Symptoms:cough. COMPARISON: Chest x-ray 05/25/2020 ACCESSION NUMBER(S): [id number] ORDERING CLINICIAN: KENDAL SIMON FINDINGS: Multiple overlying leads are present. CARDIOMEDIASTINAL SILHOUETTE: Cardiomediastinal silhouette is normal in size and configuration. LUNGS: No consolidation, pleural effusion or pneumothorax. ABDOMEN: No remarkable upper abdominal findings. BONES: No acute osseous abnormality. IMPRESSION: No acute cardiopulmonary process. MACRO: None Signed by: Murray Marquez 06/02/2023 5:51 PM Dictation workstation: [employer] [facility] XR Chest 2 Viewson No acute cardiopulmonary process. MACRO: None Signed by: Murray Marquez 06/02/2023 5:51 PM Dictation workstation: [employer] MARGARITO Interpreted By: Murray Marquez, STUDY: XR CHEST 2 VIEWS; 06/02/2023 4:21 pm INDICATION: Signs/Symptoms:cough. COMPARISON: Chest x-ray 05/25/2020 ACCESSION NUMBER(S): [id number] ORDERING CLINICIAN: KENDAL SIMON FINDINGS: Multiple overlying leads are present. CARDIOMEDIASTINAL SILHOUETTE: Cardiomediastinal silhouette is normal in size and configuration. LUNGS: No consolidation, pleural effusion or pneumothorax. ABDOMEN: No remarkable upper abdominal findings. BONES: No acute osseous abnormality. MMODAL Murray Marquez MD - 06/02/2023 Interpreted By: Murray Marquez, STUDY: XR CHEST 2 VIEWS; 06/02/2023 4:21 pm INDICATION: Signs/Symptoms:cough. COMPARISON: Chest x-ray 05/25/2020 ACCESSION NUMBER(S): [id number] ORDERING CLINICIAN: KENDAL BILPATRICIA FINDINGS: Multiple overlying leads are present. CARDIOMEDIASTINAL SILHOUETTE: Cardiomediastinal silhouette is normal in size and configuration. LUNGS: No consolidation, pleural effusion or pneumothorax. ABDOMEN: No remarkable upper abdominal findings. BONES: No acute osseous abnormality. IMPRESSION: No acute cardiopulmonary process. 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 She completed chemoradiation in 12/11. Exam and endoscopy today with no evidence of disease or recurrence. She is now 5 years out!!!!! 2. Mild xerostomia - adverse effect of radiation. Stable using conservative techniques. Frequent sips of water 3. Mild dysphagia. She is tolerating po and weight is stable. TSH/CXR managed by PCP and oncology teams. Follow up in 1 year. Chief Complaint follow up cancer History of Present IllnessCC: Cancer follow up CXR/TSH: Managed through PCP and oncology teams Ms. FCO GARNETT, is a 52 year old female with T3N2M0 SCCa P16+ right BOT cancer. She completed chemoradiation therapy 12/23/17. Last seen 05/17. She's doing great. Mild dysphagia. Weight is stable. +mild xerostomia. No new concerns today. No interim health concerns. PCP is managing her TSH. She has a CXR at [place] that we don't have access to. She is working and is happy to be at work. History: Dx: T3N2M0 SCCa, P16+ Right BOT [...] her neck and no evidence of metastasis. 04/13: MBS w/speech decreased epiglottic inversion and muscle damage in her throat 06/28/18: 6 month post treatment PET - resolution or previous FDG avidity within the BOT, with complete response in her neck and no evidence of metastasis. 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 all other systems have been reviewed and are negative for complaint. 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) Surgical History History of Gallbladder Surgery History of Hysterectomy History of Throat surgery Family History Family history of diabetes mellitus (V18.0) (Z83.3) Family history of diabetes mellitus (V18.0) (Z83.3) Family history of myocardial infarction (V17.3) (Z82.49) Social History Currently working Daily caffeine consumption Former smoker (V15.82) (Z87.891) Occasional alcohol use from significant other (V61.03) (Z63.5) Uses medical marijuana daily Allergies No Known Allergies Recorded By: Trisha Babcock; 10/02/2017 3:41:33 PM Current Meds Medication NameInstruction busPIRone HCl - 30 MG Oral TabletTAKE 1 TABLET BY MOUTH TWICE DAILY busPIRone HCl - 7.5 MG Oral Tablet [facility] Vitamin D3 1000 UNIT CAPS Cyclobenzaprine HCl - 10 MG Oral Tablet Doxycycline Monohydrate 100 MG Oral CapsuleTAKE 1 CAPSULE BY MOUTH TWICE DAILY DULoxetine HCl - 60 MG Oral Capsule Delayed Release Particles Euthyrox 100 MCG Oral Tablet Florajen Acidophilus Oral CapsuleTAKE 1 CAPSULE BY MOUTH ONCE DAILY Fluconazole 100 MG Oral Tablet Gabapentin 300 MG Oral Capsule HYDROcodone-Acetaminop hen 5-300 MG Oral Tablet Levothyroxine Sodium 50 MCG Oral Tablet Lidocaine Viscous 2 % SOLNSWISH AND SWALLOW 5ML EVERY 4 HOURS NEEDED Lidocaine-Prilocaine 2.5-2.5 % External Cream Linzess 145 MCG Oral CapsuleTAKE 1 CAPSULE Daily OLANZapine 10 MG Oral Tablet Ondansetron HCl - 4 MG Oral Tablet Pentoxifylline ER 400 MG Oral Tablet Extended Release Pilocarpine HCl - 5 MG Oral Tablet SSD 1 % External Cream traMADol HCl - 50 MG Oral Tablet traZODone HCl - 50 MG Oral (more content not included)... 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 She completed chemoradiation in 12/11. Exam and endoscopy today with no evidence of disease or recurrence. 2. Mild xerostomia - adverse effect of radiation. Stable using conservative techniques. Frequent sips of water 3. Mild dysphagia. She is tolerating po and weight is stable. She is due for CXR, ordered today. WIll call with results. TSH - managed by PCP. Follow up in 6 months Chief Complaint follow up History of Present IllnessCC: Cancer follow up CXR: Due now TSH: Managed by PCP Ms. FCO GARNETT, is a 51 year old female with T3N2M0 SCCa P16+ right BOT cancer. She completed chemoradiation therapy 12/23/17. Last seen 11/15. She's doing great. Mild dysphagia. Weight is stable. +mild xerostomia. No new concerns today. No interim health concerns. Had recent mammogram - has a tender axillary lymph node that PCP is monitoring AND has follow up 06/18. History: Dx: T3N2M0 SCCa, P16+ Right BOT [...] her neck and no evidence of metastasis. 04/13: MBS w/speech decreased epiglottic inversion and muscle damage in her throat 06/28/18: 6 month post treatment PET - resolution or previous FDG avidity within the BOT, with complete response in her neck and no evidence of metastasis. 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 all other systems have been reviewed and are negative for complaint. 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) Surgical History History of Gallbladder Surgery History of Hysterectomy History of Throat surgery Family History Family history of diabetes mellitus (V18.0) (Z83.3) Family history of diabetes mellitus (V18.0) (Z83.3) Family history of myocardial infarction (V17.3) (Z82.49) Social History Currently working Daily caffeine consumption Former smoker (V15.82) (Z87.891) Occasional alcohol use from significant other (V61.03) (Z63.5) Uses medical marijuana daily Allergies No Known Allergies Recorded By: Trisha Babcock; 10/02/2017 3:41:33 PM Current Meds Medication NameInstruction busPIRone HCl - 30 MG Oral TabletTAKE 1 TABLET BY MOUTH TWICE DAILY busPIRone HCl - 7.5 MG Oral Tablet [facility] Vitamin D3 1000 UNIT CAPS Cyclobenzaprine HCl - 10 MG Oral Tablet Doxycycline Monohydrate 100 MG Oral CapsuleTAKE 1 CAPSULE BY MOUTH TWICE DAILY DULoxetine HCl - 60 MG Oral Capsule Delayed Release Particles Euthyrox 100 MCG Oral Tablet Florajen Acidophilus Oral CapsuleTAKE 1 CAPSULE BY MOUTH ONCE DAILY Fluconazole 100 MG Oral Tablet Gabapentin 300 MG Oral Capsule HYDROcodone-Acetaminop hen 5-300 MG Oral Tablet Levothyroxine Sodium 50 MCG Oral Tablet Lidocaine Viscous 2 % SOLNSWISH AND SWALLOW 5ML EVERY 4 HOURS NEEDED Lidocaine-Prilocaine 2.5-2.5 % External Cream OLANZapine 10 MG Oral Tablet Ondansetron HCl - 4 MG Oral Tablet Pentoxifylline ER 400 MG Oral Tablet Extended Release Pilocarpine HCl - 5 MG Oral Tablet SSD 1 % External Cream traMADol HCl - 50 MG Oral Tablet traZODone HCl - 50 MG Oral Tablet Triamcinolone Acetonide 0.1 % External OintmentAPPLY OINTMENT TOPICALLY (more content not included)... Normal [facility] Tobacco Screening.on 022 Adult depression screening assessment No MG-Otolaryn go [employer] Work Phone: Fall risk assessment a) No falls within the last year MG-Otolaryngo [employer] Work Phone: Tobacco use status CPHS b) No MG-Otolaryngo [employer] Phone: APTTon 01-30-2022 aPTT Coag (Bld) [Time] 31 s [facility] Comprehensive metabolic 2000 panelon 01-30-2022 Albumin [Mass/Vol] 3.4 g/dL 3.2 - 5.2 g/dL [facility] ALP [Catalytic activity/Vol] 75 U/L 40 - 150 U/L [facility] ALT [Catalytic activity/Vol] 19 U/L 14 - 65 U/L [facility] Anion gap [Moles/Vol] 10 mmol/L 10 - 20 mmol/L [facility] AST [Catalytic activity/Vol] 14 U/L 0 - 45 U/L [facility] Bilirubin [Mass/Vol] 0.3 mg/dL 0 - 1.3 mg/dL [facility] Calcium [Mass/Vol] 8.6 mg/dL 8.4 - 10. 2 mg/dL [facility] Chloride [Moles/Vol] 107 mmol/L 98 - 10 8 mmol/L [facility] Creatinine [Mass/Vol] 0.71 mg/dL 0.40 - 1.10 mg/dL [facility] GFR/1.73 sq M.predicted CKD-EPI (S/P/Bld) [Vol rate/Area] 103 - PINF [facility] Comment on above: Estimated GFR was ca lculated using the 2020 CKD-EPI creatinine equation. Glucose [Mass/Vol] 92 mg/dL 65 - 99 mg/dL [facility] HCO3 [Moles/Vol] 27 mmol/L 21 - 32 mmol/L [facility] Potassium [Moles/Vol] 4.6 mmol/L 3.5 - 5.1 mmol/L [facility] Protein [Mass/Vol] 6.7 g/dL 6 - 8 g/dL [facility] Sodium [Moles/Vol] 139 mmol/L 135 - 145 mmol/L [facility] Urea nitrogen [Mass/Vol] 12 mg/dL 8 - 25 mg/dL [facility] Urea nitrogen/Creatinine [Mass ratio] 16.9 mg/mg 10 - 20 [facility] has implemented the eGFR calculation approach that does not have a coefficient for race that conforms to the NKF-ASN Task Force Recommendations. [facility] INR Coag (PPP) [Relative tali e]on 01-30-2022 PT Coag (PPP) [Time] 13.0 s [facility] During the induction phase of oral anticoagulation, the INR may not reflect the anticoagulation status of the patient. Therapeutic ranges for INR's are: Most clinical situations: INR 2.0-3.0 Mechanical Prosthetic Valve: INR 2.5-3.5 Critical: INR >5.0 [facility] Lipid 1996 panelon 2 Cholesterol [Mass/Vol] 196 mg/dL 100 - 199 mg/dL [facility] Comment on above: National Cholesterol Education Program Guidelines: Cholesterol Desirable: <200 mg/dL Borderline High: 200-239 mg/dL High: greater than or equal to 240 mg/dL Cholesterol in HDL [Mass/Vol] 57 mg/dL 40 - 59 mg/dL [facility] Comment on above: National Cholesterol Education Program Guidelines: HDL Cholesterol Low: <40 mg/dL Near Optimal: 40-59 mg/dL High: greater than or equal to 60 mg/dL Cholesterol in LDL [Mass/Vol] 121 mg/dL 10 - 130 mg/dL [facility] Comment on above: National Cholesterol Education Program Guidelines: LDL Cholesterol Optimal: <100 mg/dL Near Optimal/above Optimal: 100-129 mg/dL Borderline High: 130-159 mg/dL High: 160-189 mg/dL Very High: greater than or equal to 190 mg/dL Cholesterol non HDL [Mass/Vol] 139 mg/dL [facility] Comment on above: National Cholesterol Education Program Guidelines: NON HDL Cholesterol Desirable: <130 mg/dL Borderline High: 130-159 mg/dL High: 160-189 mg/dL Very High: > or = 190 mg/dL Cholesterol.total/Ch olesterol in HDL [Mass ratio] 3.4 {ratio} ratio [facility] Comment on above: Female Cholesterol/H DL Ratio: Average risk: 4.4 1/2 average risk: 3.3 2 x average risk: 7.1 Triglyceride [Mass/Vol] 88 mg/dL 30 - 150 mg/dL [facility] Comment on above: National Cholesterol Education Program Guidelines: Triglyceride Normal: <150 mg/dL Borderline High: 150-199 mg/dL High: 200-499 mg/dL Very High: greater than or equal to 500 mg/dL No Panel Informationon 01-30 Interpretation and review of laboratory results Normal [facility] Interpretation and review of laboratory results Normal [facility] PT/INRon 01-30-2022 INR Coag (PPP) [Relative time] 1.0 {INR} 0.8 - 1.1 [facility] TSH DL <= 0.005 mIU/L Qnon 0 01-30-2022 TSH Qn 0.66 m[IU]/L [facility] aPTT Coag (Bld) [Time]on Therapeutic range fo r APTT's is 68 - 104 seconds [facility] Established Visit (Gastroent erology)on 11-17-2021 Established Visit (Gastroenterology) Diagnoses/Problems Assessed Irritable bowel syndrome with constipation (564.1) (K58.1) Orders Irritable bowel syndrome with constipation Start: Ibsrela 50 MG Oral Tablet; Take one tablet twice daily by mouth Rx By: Dennis Dowling; Dispense: 30 Days ; #:60 Tablet; Refill: 0;For: Irritable bowel syndrome with constipation; MARCIAL = N; Call Rx Provider Impressions Begin Nohemy. Follow-up by telephone in 3 weeks. She states she is due for CT scan with her oncologist November 28. If CT scan is unremarkable and no improvement gregoria Murillo would recommend repeat colonoscopy Chief Complaint Here for follow-up regarding constipation. Review of SystemsFco is a pleasant 31-year-old female who underwent total abdominal hysterectomy at age 20 for low-grade ovarian cancer did not require adjuvant chemoradiation. Admits having chronic constipation since adolescence that it worsens as she is aged. She does have known thyroid disease most recent thyroid testing showed her to be euthyroid, testing was done within the last 3 months. She had remote throat cancer she is now 3 years status post chemoradiation for smoking the cell cancer of the base of tongue. She continues to follow with her oncology team and has recent head neck CT which was unremarkable. She admits having constipation over much of her adult life is averaging 1 bowel movement every 5 days typically has a hard stool followed by day of diarrhea then will have no bowel movement for 5 more days. She is use [id number] Metamucil, MiraLAX, laxatives. She recalls being given mineral oil and castor oil as a child. She denies any rectal bleeding no anemia no family history of colorectal cancer. Colonoscopy was done [address] [facility] and stated to be normal. We started a regimen of MiraLAX 17 g daily along with mineral oil 1 tablespoon daily despite this she is having 1 bowel movement every 5 to 10 days. She states she has moved her bowels 3 times since her last visit. Constitutional: no fever, no chills, not feeling tired and no recent weight loss. ENT: no lymphadenopathy. Cardiovascular: no shortness of breath and no chest pain. Respiratory: no cough. Gastrointestinal: as noted in HPI. Musculoskeletal: no joint swelling. Integumentary: no rashes, no skin lesions and was no jaundiced. All other systems have been reviewed and are negative for complaint. 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) Surgical History Problems History of Gallbladder Surgery History of Hysterectomy History of Throat surgery Family History Mother Family history of diabetes mellitus (V18.0) (Z83.3) Father Family history of diabetes mellitus (V18.0) (Z83.3) Family history of myocardial infarction (V17.3) (Z82.49) Social History Problems Currently working Daily caffeine consumption Former smoker (V15.82) (Z87.891) Occasional alcohol use from significant other (V61.03) (Z63.5) Uses medical marijuana daily Allergies NoKnown No Known Allergies Recorded By: Trisha Babcock; 10/02/2017 3:41:33 PM Current Meds Medication NameInstruction busPIRone HCl - 30 MG Oral TabletTAKE 1 TABLET BY MOUTH TWICE DAILY busPIRone HCl - 7.5 MG Oral Tablet [facility] Vitamin D3 1000 UNIT CAPS Cyclobenzaprine HCl - 10 MG Oral Tablet Doxycycline Monohydrate 100 MG Oral CapsuleTAKE 1 CAPSULE BY MOUTH TWICE DAILY DULoxetine HCl - 60 MG Oral Capsule Delayed Release Particles Euthyrox 100 MCG Oral Tablet Florajen Acidophilus Oral CapsuleTAKE 1 CAPSULE BY MOUTH ONCE DAILY Fluconazole 100 MG Oral Tablet Gabapentin 300 MG Oral Capsule HYDROcodone-Acetaminop hen 5-300 MG Oral Tablet Levothyroxine Sodium 50 MCG Oral Tablet Lidocaine Viscous 2 % SOLNSWISH AND SWALLOW 5ML EVERY 4 HOURS NEEDED Lidocaine-Prilocaine 2.5-2.5 % External Cream OLANZapine 10 MG Oral Tablet Ondansetron HCl - 4 MG Oral Tablet Pentoxifylline ER 400 MG Oral Tablet Extended Release Pilocarpine HCl - 5 MG Oral Tablet SSD 1 % External Cream traMADol HCl - 50 MG Oral Tablet traZODone HCl - 50 MG Oral Tablet Triamcinolone Acetonide 0.1 % External OintmentAPPLY OINTMENT TOPICALLY TO AFFECTED AREA THREE TIMES DAILY Vitamin B12 TABS Vitamin C 1000 MG Oral Tablet Vitamin E 1000 UNIT Oral CapsuleTAKE 1 CAPSULE BY MOUTH ONCE DAILY FOR FIBROSIS Zinc 100 MG Oral Tablet Physical Exam Constitutional General appearance: In no acute distress . Eyes Anicteric Sclerae . Pulmonary Auscultation of lungs: Clear. Cardiovascular Auscultation of h (more content not included)... Normal [facility] Tobacco Screening.on Fall risk assessment a) No falls within the last year [facility] Work Phone: Tobacco use status CPHS b) No [facility] Work Phone: C Reactive Protein, Serumon 10-27-2021 CRP [Mass/Vol] 2.33 mg/dL Abnormal [facility]-Otolary [place] [facility] Work Phone: Comment on above: REF VALUE< 1.00 Cult, Misc + smearon Bacteria identified Cx Nom (Unsp spec) Abnormal [facility] [employer] Work Phone: Laboratory - Chemistry and C hemistry - challengeon 10-27-2021 Anion gap [Moles/Vol] 12 mmol/L 10 - 20 [facility] Work Phone: Calcium [Mass/Vol] 8.7 mg/dL 8.6 - 10.3 [facility] laryng[facility] Work Phone: Chloride [Moles/Vol] 103 mmol/L 98 - 107 [facility]o [facility] [employer] Work Phone: CO2 [Moles/Vol] 23 mmol/L 21 - 32 [facility] y[facility]o [facility] [employer] Work Phone: Creatinine [Mass/Vol] 0.61 mg/dL See Below [facility] [employer] Work Phone: Comment on above: Reference Range: 0.5 0 - 1.05 Glucose [Mass/Vol] 94 mg/dL 74 - 99 [facility] [facility]o [facility] [employer] Work Phone: Potassium [Moles/Vol] 4.3 mmol/L 3.5 - 5.3 [facility] [employer] Work Phone: Sodium [Moles/Vol] 134 mmol/L below low threshold 136 - 145 [facility] Work Phone: Urea nitrogen [Mass/Vol] 12 mg/dL 6 - 23 [facility] Work Phone: Laboratory - Hematology and Cell countson 10-27-2021 Erythrocyte distribution width (RBC) [Ratio] 13.7 % See Below [facility] [employer] Work Phone: Comment on above: Reference Range: 11. 5 - 14.5 Hematocrit (Bld) [Volume fraction] 41.2 % See Below [facility] Work Phone: Comment on above: Reference Range: 36. 0 - 46.0 Hemoglobin (Bld) [Mass/Vol] 13.6 g/dL See Below [facility] Work Phone: Comment on above: Reference Range: 12. 0 - 16.0 MCHC (RBC) [Mass/Vol] 32.9 g/dL See Below [facility] [employer] Work Phone: Comment on above: Reference Range: 32. 0 - 36.0 MCV (RBC) [Entitic vol] 95 fL 80 - 100 [facility]aryngo [facility] Work Phone: Platelets (Bld) [#/Vol] 249 10*3/uL 150 - 450 [facility]o [facility] Work Phone: RBC (Bld) [#/Vol] 4.33 {x10E12/L} See Below [facility] -[facility]o [facility] Work Phone: Comment on above: Reference Range: 4.0 0 - 5.20 WBC (Bld) [#/Vol] 6.3 10*3/uL 4.4 - 11.3 [facility] laryngo [facility] Work Phone: Laboratory - Microbiology an d Antimicrobial susceptibilityon 10-27-2021 B. burgdorferi Ab IA Qn (S) 0.37 {ANDIE} 0.00-1.20 MG-[facility] [employer] Work Phone: Comment on above: When the Borrelia bu rgdorferi Abs, Total by ALIA result is negative, no further testing is done.INTERPRETIVE INFORMATION: Borrelia Burgdorferi Abs,Total by ALIA 0.99 ANDIE or Less: ...... Negative: Antibody to B. burgdorferi not detected. 1.00 - 1.20 ANDIE......... Equivocal: Repeat testing in 10-14 days may be helpful. 1.21 ANDIE or Greater: ... Positive: Probable presence of antibody to B. burgdorferi detected.Performed By: [facility] [place] [id number] Director: Yamileth Al MD E. chaffeensis IgG IF (S) [Titer] <1:64 <1:64 [facility] Work Phone: Comment on above: INTERPRETIVE INFORMA TION: Ehrlichia Chaffeensis IgG Ab Less than 1:64 ....... Negative: No significant level of Ehrlichia chaffeensis IgG antibody detected. 1:64-1:128 ........... Equivocal: Questionable presence of Ehrlichia chaffeensis IgG antibody detected. Repeat testing in 10-14 days may be helpful. 1:256 or greater ..... Positive: Presence of IgG antibody to Ehrlichia chaffeensis detected, suggestive of current or past infection.Seroconversion between acute and convalescent sera is considered strong evidence of recent infection. The best evidence for infection is a significant change (fourfold difference in titer) on two appropriately timed specimens, where both tests are done in the same laboratory at the same time.This test was developed and its performance characteristics determined by [facility]. It has not been cleared or approved by the [place] Food and Drug Administration. This test was performed in a CLIA certified laboratory and is intended for clinical purposes. E. chaffeensis IgM (S) [Titer] < 1:16 < 1:16 [facility]aryng[facility] [employer] Work Phone: Comment on above: INTERPRETIVE INFORMA TION: Ehrlichia Chaffeensis IgM Ab Less than 1:16 ....... Negative - No significant level of Ehrlichia chaffeensis IgM antibody detected. 1:16 or greater ...... Positive - Presence of IgM antibody to Ehrlichia chaffeensis detected, suggestive of current or recent infection.While the presence of IgM antibodies suggest current or recent infection, low levels of IgM antibodies may occasionally persist for more than 12 months post-infection. A single IgM result should be interpreted with caution.This test was developed and its performance characteristics determined by [facility]. It has not been cleared or approved by the [place] Food and Drug Administration. This test was performed in a CLIA certified laboratory and is intended for clinical purposes.Performed By: [facility] [place] [id number] Director: Yamileth Al MD No Panel Informationon 10-27 >90 >90 [facility]tolaryngo [facility] Work Phone: Comment on above: CALCULATIONS OF EDGARDO MATED GFR ARE PERFORMED USING THE 2020 CKD-EPI STUDY REFIT EQUATION WITHOUT THE RACE VARIABLE FOR THE IDMS-TRACEABLE CREATININE METHODS.https://jasn.asnjournals.org/content/early//ASN .7862885130 Provider Note - ED v3on 06-0 Provider Note - ED v3 Provider Note: Chart Review HISTORY OF PRESENTING ILLNESS FCO is a 51 year old Female and was seen by me at 27-Oct-2021 08:09 for a chief complaint of rash. Other complaints include: Saturday pt had a tick removed by a family member, she now has itching, pain & discomfort to region with broad red rash throughout.. The historian is the patient. Triage Information: Most recent Vital Sign Value Date Presenting Symptoms: redness. Location in the back. Quality is burning, itchy and redness. Context is Unknown (she was allegedly bitten by a tick and had it removed)Duration: 5 day(s). Timing is gradual onset and constant. Pertinent History: (tongue CA). PAST MEDICAL HISTORY ALLERGIES/INTOLERANCES : No Known Allergies HEALTH HISTORY: No documented data. OUTPATIENT MEDICATIONS: Home Medications Review Status for Reconciliation: Complete Med Status: Patient Currently Takes Medications Drug Name: Synthroid 50 mcg (0.05 mg) oral tablet Instructions: 1 tab(s) orally once a day Drug Name: traZODone Instructions: null Drug Name: pilocarpine Instructions: null Drug Name: levothyroxine Instructions: null Drug Name: pentoxifylline Instructions: null Drug Name: DULoxetine Instructions: null Drug Name: cyclobenzaprine Instructions: null SIGNIFICANT EVENTS: Clinical Events Description:Surgical Procedure Additional Notes:Direct laryngoscopy, bronchoscopy, esophagoscopy Description:Surgical Procedure Additional Notes:EGD/PEG Past Medical History Description:Throat cancer Past Surgical History Description:Cholecyste ctomy Description:Hysterecto my REVIEW OF SYSTEMS CONSTITUTIONAL: POSITIVE for: malaise Negative for: chills and fever EYES: POSITIVE for: redness ENMTNose: Negative for: congestion and discharge INTEGUMENTARY: POSITIVE for: itching and lesions; rash NEUROLOGICAL: Negative for: dizziness and headache; PHYSICAL EXAM CONSTITUTIONAL: Well appearing, well nourished, awake, alert, oriented to person, place, time/situation and in no apparent distress. HENMT: Airway patent, ears with clear tympanic membranes bilaterally. Nasal mucosa clear. Mouth with normal mucosa. Throat has no vesicles, no oropharyngeal exudates and uvula is midline. Face with no lymph node enlargement. EYES: Clear bilaterally, pupils equal, round and reactive to light. RESPIRATORY: Breath sounds clear and equal bilaterally. SKIN: Skin Color: normal for race Skin Temperature: warm Capillary Refill: less than 2 seconds Signs of Infection: DRAINAGE Rash Description: MACULAR and REDDENED Rash Location: thoracic rash suggestive of EM, there is an abscess cutaneous with ease of expressing purulence, culture obtained CRITICAL CARE VITAL SIGNS: T PRBP SpO2O2(LPM) %FiO2 Method 27-Oct-2021 08:11:[id number] 96RA MDM MDM/ED COURSE: 1) Tick bite with cutaneous abscess formation and rash of EM: labs obtained, discussed tx include use of doxycycline, topical triamcinolone, gentle soapy washes daily, and return if abscess becomes worse for I&D. Patient agrees plan of care she was discharged.Differentia l Diagnosis: abrasions, abscess and cellulitis Discussed Findings with: patient Data Reviewed: vital signs Conducted Detailed Discussion with Patient and/or Guardian Regarding: need for outpatient follow-up Awaiting: lab results DISPOSITION Diagnosis/Annotation: ED Dx Name:Tick bite of left back wall of thorax, initial encounter Code:S20.462A Name:Erythema multiforme, dermal type Code:L51.8 Name:Cutaneous abscess of back excluding buttocks Code:L02.212 Disposition: discharged CONSULT CRITICAL CARE TIME Is this a critically ill patient: no Electronic Signatures for Addendum Section: Lit James (PAC) (Signed Addendum 28-Oct-2021 10:55) Fco returns today at 10:30 hrs. to have the wound rechecked. States that the symptoms are improving she is not as itchy in the pain in the abscess is not as bad but she would like to have it lanced. Patient was laid supine on ED bed #2, we then used lidocaine syringe from a prepackaged suture kit to anesthetize locally, after achieving proper anesthesia I was then able to perform debridement of the wound and cleansing. We discussed wound care, sterile dressings were applied, patient was discharged with some supplies, she voiced understanding treatment plan updated on the findings of the preliminary culture as well as lab testing. She was discharged. Electronic Signatures: Lit James (PAC) (Signed 28-Oct-2021 10:54) Authored: HPI, PMH, ROS, PE, Results/Vital Signs, MDM/ED Course, Clinical Impression, Attestation, Chart Review, Scores Last Updated: 28-Oct-2021 10:55 by Lit James (PAC) Normal [facility] Sedimentation Rate, Erythroc yteon 10-27-2021 ESR (Bld) [Velocity] 80 mm/h above high threshold 0 - 30 [facility] Work Phone: COVID-19, MOLECULARon 2020 SARS-CoV-2 (COVID-19) RNA YARIEL+probe Ql (Unsp spec) Detected Abnormal Not Detected [facility] Comment on above: Result Comment: This test was performed under the FDA's Emergency Use Authorization (EUA). Testing was performed using the TaqPath?? RT-PCR COVID-19 Assay. This test has not been approved for use in asymptomatic patients and its performance in this patient population has not been evaluated. Negative results do not rule out the presence of SARS-CoV-2/COVID-19. Fact sheets for this EUA can be found at the following links: For Healthcare Providers: https://www.fda.gov/media/552833/download For Patients: https://www.fda.gov/media/708842/download Performed By: #### L [id number] #### [facility] [address] [place] [address] Joe Price M.D. [id number] XR CHEST PA/APon 05-23-2021 XR CHEST PA/AP EXAMINATION: XR CHEST PA/AP HISTORY: ORDERING SYSTEM PROVIDED HISTORY: chest pain, TECHNOLOGIST PROVIDED HISTORY: Illness/Other Reason for exam: cough, fever, aches Cancer History: no Surgery, RadiationHistory: no Encounter Type: Initial Additional signs and symptoms: chest pain ORDERING SYSTEM PROVIDED DIAGNOSIS CODES: COMPARISON: 02/19/2008. FINDINGS: One-view chest x-ray. No pneumothorax, pleural effusion or focal airspace consolidation. Heart is normal in size. Bony thorax is unremarkable. IMPRESSION: No acute cardiopulmonary process. [employer] Workstation ID: [id number] Dictated by: LANI LINDSEY on SatMay 23, 2021 12:31:57 PM EST Transcribed by: FLOR BLISS on SatMay 23, 2021 12:39:49 PM EST Finalized by: LANI LINDSEY on SatMay 23, 2021 7:55:10 PM EST Normal [facility] Comment on above: Order Comment: Injur y/Trauma or Illness?:Illness/Other How long have you had these symptoms (acute/chronic)?:Acute Reason for exam?:cough, fever, aches History of cancer?:no Surgeries, chemotherapy, or radiation?:no Type of Exam?:Initial Additional signs and symptoms?:chest pain Tobacco Screening.on 021 Fall risk assessment a) No falls within the last year [facility] Work Phone: Tobacco use status [facility] b) No [facility] Work Phone: Tobacco Screening.on 021 Fall risk assessment a) No falls within the last year [facility] Work Phone: Tobacco use status [facility] b) No [facility] [facility] Work Phone: DIGITAL MAMM SCREENING W/ TO [place] 11-03-2020 DIGITAL MAMM SCREENING W/ MARKEL Patient Name: FCO GARNETT STUDY: DIGITAL MAMM SCREENING W/ MARKEL; 11/03/2020 2:14 pm ACCESSION NUMBER(S): [id number] ORDERING CLINICIAN: KIRSTIE HINES INDICATION: Screening. COMPARISON: 10/31/2018, 11/03/2019 FINDINGS: 2D and tomosynthesis images were reviewed at 1 mm slice thickness. The breast tissue is heterogeneously dense, which may obscure small masses. No suspicious masses or calcifications are identified. CAD was utilized. IMPRESSION: No mammographic evidence of malignancy. BI-RADS CATEGORY: Category: 2 - Benign. Recommendation: 1 Year Screening. For any future breast imaging appointments, please call [phone] ([phone]). Electronically signed by: YARON ACOSTA MD [facility] COVID-19, MOLECULARon 2020 SARS-COV-2 RNA (ELIGIO) Not Detected Normal Not Detected [facility] Comment on above: Order Comment: : Nieves l Swab COVID/Flu Lab Tests (OP in UTM/Dry) Result Comment: This test was performed under the FDA's Emergency Use Authorization (EUA). Testing was performed using the William SARS-CoV-2 RT-PCR assay on the Eligio William 6800 System. This test has not been approved for use in asymptomatic patients and its performance in this patient population has not been evaluated. Negative results do not rule out the presence of SARS-CoV-2/COVID-19. Fact sheets for this EUA can be found at the following links: For Healthcare Providers: https://www.fda.gov/media/762621/download For Patients: https://www.fda.gov/media/701477/download Performed By: #### L [id number] #### [facility] [address] [address] Joe Price M.D. [id number] Comprehensive Metabolic Pane mario 01-26-2020 Albumin [Mass/Vol] 3.6 g/dL 3.2 - 5.2 g/dL [facility] ALP [Catalytic activity/Vol] 71 U/L 40 - 150 U/L [facility] ALT [Catalytic activity/Vol] 20 U/L 14 - 65 U/L [facility] Anion gap [Moles/Vol] 11 mmol/L 10 - 20 mmol/L [facility] AST [Catalytic activity/Vol] 16 U/L 0 - 45 U/L [facility] Bilirubin [Mass/Vol] 0.4 mg/dL 0 - 1.3 mg/dL [facility] Calcium [Mass/Vol] 9.4 mg/dL 8.4 - 10. 2 mg/dL [facility] Chloride [Moles/Vol] 105 mmol/L 98 - 10 8 mmol/L [facility] Creatinine [Mass/Vol] 0.60 mg/dL 0.40 - 1.10 [facility] GFR/1.73 sq M predicted among non-blacks MDRD (S/P/Bld) [Vol rate/Area] The eGFR should be used for monitoring renal function only and not for medication dosing. [facility] GFR/1.73 sq M.predicted CKD-EPI (S/P/Bld) [Vol rate/Area] 107 >=60 mL/min/1.73 m2 [facility] Glucose [Mass/Vol] 100 mg/dL High 65 - 99 mg/dL [facility] HCO3 [Moles/Vol] 26 mmol/L 21 - 32 mmol/L [facility] Potassium [Moles/Vol] 4.3 mmol/L 3.5 - 5.1 mmol/L [facility] Protein [Mass/Vol] 7.7 g/dL 6 - 8 g/dL [facility] Sodium [Moles/Vol] 138 mmol/L 135 - 145 mmol/L [facility] Urea nitrogen [Mass/Vol] 11 mg/dL 8 - 25 mg/dL [facility] Urea nitrogen/Creatinine [Mass ratio] 18.3 mg/mg [facility] Lipid Panelon 01-26-2020 Cholesterol [Mass/Vol] 198 mg/dL 100 - 199 mg/dL [facility] Comment on above: National Cholesterol Education Program Guidelines: Cholesterol Desirable: <200 mg/dL Borderline High: 200-239 mg/dL High: greater than or equal to 240 mg/dL Cholesterol in HDL [Mass/Vol] 60 mg/dL 40 - 59 [facility] Comment on above: National Cholesterol Education Program Guidelines: HDL Cholesterol Low: <40 mg/dL Near Optimal: 40-59 mg/dL High: greater than or equal to 60 mg/dL Cholesterol in LDL [Mass/Vol] 124 mg/dL 10 - 130 mg/dL [facility] Comment on above: National Cholesterol Education Program Guidelines: LDL Cholesterol Optimal: <100 mg/dL Near Optimal/above Optimal: 100-129 mg/dL Borderline High: 130-159 mg/dL High: 160-189 mg/dL Very High: greater than or equal to 190 mg/dL Cholesterol non HDL [Mass/Vol] 138 mg/dL [facility] Comment on above: National Cholesterol Education Program Guidelines: NON HDL Cholesterol Desirable: <130 mg/dL Borderline High: 130-159 mg/dL High: 160-189 mg/dL Very High: > or = 190 mg/dL Cholesterol.total/Ch olesterol in HDL [Mass ratio] 3.3 {ratio} ratio [facility] Comment on above: Female Cholesterol/H DL Ratio: Average risk: 4.4 1/2 average risk: 3.3 2 x average risk: 7.1 Triglyceride [Mass/Vol] 68 mg/dL 30 - 150 mg/dL [facility] Comment on above: National Cholesterol Education Program Guidelines: Triglyceride Normal: <150 mg/dL Borderline High: 150-199 mg/dL High: 200-499 mg/dL Very High: greater than or equal to 500 mg/dL Otheron 01-26-2020 Interpretation and review of laboratory results Abnormal [facility] POC Urinalysis Dipstickon Bilirubin Ql (U) Negative Negative [facility] Glucose Ql (U) Negative Normal, Negative mg/dL [facility] Hemoglobin Ql (U) Trace-intact Abnormal Negative [facility] ealt Interpretation and review of laboratory results Abnormal [facility] Ketones Ql (U) Negative Negative mg/dL [facility] Leukocyte esterase Test strip Ql (U) Negative Negative [facility] Nitrite Ql (U) Negative Negative [facility] pH (U) 7.0 [pH] [facility] Protein Ql (U) Negative Negative mg/dL [facility] Specific gravity (U) [Rel density] 1.025 [facility] Comment on above: Kirstie Spring RECORDS SUPERVISOR reviewed results with pt during office visit today Urobilinogen Qn (U) 0.2 mg/dL <2.0, 0. 2, Normal, Negative, 1.0, 2.0, <1.0 [facility] TSH with Reflex Free T4on TSH Qn 0.22 m[IU]/L Low [facility] XR Lumbar Spine 2-3 Views (S kalpana)on 01-26-2020 Interface, Rad In Fu ji Speechq - 01/26/2020 1:53 PM EDT EXAMINATION: XR LUMBAR SPINE 2-3 VIEWS (STANDARD) 01/26/2020 9:40 am HISTORY: ORDERING SYSTEM PROVIDED HISTORY: lumbar pain and right SI joint pain, TECHNOLOGIST PROVIDED HISTORY: Illness/Other Reason for exam: low back pain x 2 months no known injry Cancer History: u Surgery, RadiationHistory: u Encounter Type: Unknown Additional signs and symptoms: low back pain x 2 months no known injry ORDERING SYSTEM PROVIDED DIAGNOSIS CODES: M54.5 Acute right-sided low back pain without sciatica COMPARISON: Lumbar spine 09/06/2012. FINDINGS: AP, lateral and coned-down views for 3 views were obtained. The gallbladder is surgically absent. There is significant retention of stool throughout the colon noted incidentally. There is partial lumbarization of the S1 segment on the right. Transitional lumbosacral anatomy is again identified. Mild stable arthritic changes about the SI joints are noted. Mild multilevel thoracic and lumbar spondylitic and facet arthritic changes again noted. The disc space narrowing is most apparent at L5-S1 and less so at remaining lower thoracic and lumbar levels. The pedicles are intact. There is no acute fracture or subluxation. No spondylolysis or spondylolisthesis noted. IMPRESSION: 1. Transitional lumbosacral anatomy is identified. Mild multilevel thoracic and lumbar spondylitic/facet arthritic changes with disc space narrowing most apparent at L5-S1 level noted. 2. No acute fracture. 3. Constipation. Cholecystectomy. [employer] Workstation ID: [id number] [facility] EXAMINATION: XR LUMB AR SPINE 2-3 VIEWS (STANDARD) 01/26/2020 9:40 am HISTORY: ORDERING SYSTEM PROVIDED HISTORY: lumbar pain and right SI joint pain, TECHNOLOGIST PROVIDED HISTORY: Illness/Other Reason for exam: low back pain x 2 months no known injry Cancer History: u Surgery, RadiationHistory: u Encounter Type: Unknown Additional signs and symptoms: low back pain x 2 months no known injry ORDERING SYSTEM PROVIDED DIAGNOSIS CODES: M54.5 Acute right-sided low back pain without sciatica COMPARISON: Lumbar spine 09/06/2012. FINDINGS: AP, lateral and coned-down views for 3 views were obtained. The gallbladder is surgically absent. There is significant retention of stool throughout the colon noted incidentally. There is partial lumbarization of the S1 segment on the right. Transitional lumbosacral anatomy is again identified. Mild stable arthritic changes about the SI joints are noted. Mild multilevel thoracic and lumbar spondylitic and facet arthritic changes again noted. The disc space narrowing is most apparent at L5-S1 and less so at remaining lower thoracic and lumbar levels. The pedicles are intact. There is no acute fracture or subluxation. No spondylolysis or spondylolisthesis noted. [facility] 1. Transitional lumbosacral anatomy is identified. Mild multilevel thoracic and lumbar spondylitic/facet arthritic changes with disc space narrowing most apparent at L5-S1 level noted. 2. No acute fracture. 3. Constipation. Cholecystectomy. [employer] Workstation ID: [id number] [facility] ED Clinical Summaryon 2019 ED Clinical Summary [address] [address] ED Clinical Summary Person Information Name: Fco Garnett/[facility] Age: 49 Years : 1970 Sex: Female PCP: Kirstie Hines CNP Marital Status: Phone: Race: White Ethnicity: Not or Language: Turkmen Visit Reason: Painful mouth; Throat pain Acuity: 3 Enc Type: Emergency Med Service: Emergency Medicine Arrival: 10/31/2019 16:35:45 Discharge: 10/31/2019 17:16:00 LOS: 000 00:41 Checkin: 10/31/2019 16:35:45 Checkout: 10/31/2019 17:16:00 Dispo Type: Home or Self Care Address: [address] [place] [address] Provider Notes: Diagnosis: 1:Oral thrush Problems No Problems Documented Smoking Status: Functional Status: Sensory Deficits: History of Falls: Mobility Assistance Prior to Admission: ADLs: Current Level of Assistance for Self-Care/Mobility: Cognitive Status: Allergies No Known Medication Allergies Laboratory or Other Results This Visit (last charted value for your 10/31/2019 visit) No Laboratory or Other Results This Visit Measurements: Height: Weight: Blood Pressure: /68 mmHg BMI: Procedures No Procedures Documented Immunizations No Immunizations Documented This Visit Final Med List: New Medications Printed Prescriptions diphenhydramine/lidoca ine/nystatin topical (FIRST BXN Mouthwash mucous membrane suspension) 1 Application Topical (on the skin) 4 times a day. Refills: 0. Last Dose: ___ Medications that have not changed Other Medications DULoxetine (DULoxetine 60 mg oral delayed release capsule) 2 Capsules Oral (given by mouth) every day. do not crush or chew. Last Dose: ___ lactobacillus acidophilus (Florajen oral capsule) Oral (given by mouth) every day. Last Dose: ___ levothyroxine 100 Microgram every day. Last Dose: ___ levothyroxine (Euthyrox 100 mcg (0.1 mg) oral tablet) Oral (given by mouth) every day. Last Dose: ___ traZODone (traZODone 50 mg oral tablet) 1 Tabs Oral (given by mouth) once a day (at bedtime). Last Dose: ___ Printed Prescriptions diphenhydramine/lidoca ine/nystatin topical (FIRST BXN Mouthwash mucous membrane suspension) 1 Application Topical (on the skin) 4 times a day. Refills: 0. Other Medications DULoxetine (DULoxetine 60 mg oral delayed release capsule) 2 Capsules Oral (given by mouth) every day. do not crush or chew. lactobacillus acidophilus (Florajen oral capsule) Oral (given by mouth) every day. levothyroxine 100 Microgram every day. levothyroxine (Euthyrox 100 mcg (0.1 mg) oral tablet) Oral (given by mouth) every day. traZODone (traZODone 50 mg oral tablet) 1 Tabs Oral (given by mouth) once a day (at bedtime). Care Team Members: Attending Physician: Maribell Whitten DO Consulting Physician: Referring Physician: Provider Role Assigned Unassigned Odilia Ward ED Nurse 10/31/2019 16:36:22 Maribell Whitten DO ED Provider 10/31/2019 16:36:24 Follow up: With: Address: When: See your primary care provider in 2 days. Patient Education Information: Thrush (Oral Noemí Infection) (Child) [facility] Poison Help line: . [facility] Hotline: [place] Tobacco Quit Line: [place], [place]) [address]: [phone] [place], [place]) [address]: [phone] [facility] [address] [place], [place]: [phone] Normal [facility] ED Note-Physicianon 10-31-19 ED Note-Physician Chief Complaint mouth pain History of Present Illness Patient presents to the ED with complaints of lesions in the mouth and pain along the oral mucosa over the past few days. She notes having similar Sx with oral thrush in the remote past. She denies having difficulty swallowing or breathing. No fever. She was previously treated for neck cancer, but states her cancer is resolved and she is no longer undergoing chemotherapy. She denies current use of immune-modulating medication. No Hx of DM. Review of Systems GENERAL: Negative for fever EYES: Negative for acute changes NECK: Negative for acute pain CARDIOVASCULAR: Negative for chest pain RESPIRATORY: Negative for shortness of breath, cough ABDOMEN/GI: Negative for abdominal pain, nausea, vomiting, diarrhea BACK: Negative for pain MUSCULOSKELETAL: Negative for acute pain and swelling SKIN: Negative for rash NEURO: Negative for headache, focal weakness, acute numbness, acute tingling Physical Exam CONSTITUTIONAL: Patient is awake and alert HEAD: Normocephalic, atraumatic HEENT: Moist mucus membranes, oropharynx clear. The buccal mucosa is notable for white patchy lesions. No swelling in the posterior oropharynx. No evidence of abscess. Swallowing normally, normal voice. EYES: Pupils are equally round and reactive to light, lids and lashes normal, clear conjunctiva, non-icteric sclera. No drainage NECK: Trachea midline, external neck normal, supple, no nuchal rigidity or meningismus PULMONARY: Clear to auscultation bilaterally with equal sounds. Normal rate and effort CARDIOVASCULAR: Regular rate and rhythm. GASTROINTESTINAL: Soft, non-tender, normal bowel sounds, no rebound or guarding BACK: No flank tenderness SKIN: Warm and dry MUSCULOSKELETAL: Extremities without acute deformity. No edema or tenderness. No midline C/T/L spine tenderness. Normal distal pulses and cap refill. NEUROLOGIC: No gross motor or sensory deficits. Normal tone. Normal coordination. PSYCHIATRIC: Normal mood and affect Vitals & Measurements T: 37.2 ?C (Temporal Artery) HR: 95 (Monitored) RR: 18 BP: 119/68 SpO2: 98% Additional Vitals Peripheral Pulse Rate: 95 bpm Procedure No qualifying data available. ASA Documentation Medical Decision Making Improved in the ED. Appears well, NAD. ED return precautions reviewed and follow up plan discussed. She was instructed to swish and spit her Rx rinse medication. She verbalized understanding. Prompt follow up with her PCP and oncologist was advised. Assessment/Plan 1. Oral thrush Orders: diphenhydramine/lidoca ine/nystatin topical, 1 jennifer, Topical, QID, # 60 g, 0 Refill(s) 50828 - ED Professional Level 3 Discharge Patient Problem List/Past Medical History Ongoing Hypothyroidism Historical No qualifying data Medications Home DULoxetine 60 mg oral delayed release capsule, 120 mg, 2 caps, Oral, Daily Euthyrox 100 mcg (0.1 mg) oral tablet, Oral, Daily Florajen oral capsule, Oral, Daily levothyroxine, 100 mcg, Daily traZODone 50 mg oral tablet, 50 mg, 1 tabs, Oral, HS (at bedtime) Inpatient No active inpatient medications Prescriptions FIRST BXN Mouthwash mucous membrane suspension, 1 jennifer, Topical, QID Allergies No Known Medication Allergies Social History Tobacco Former smoker, quit more than 30 days ago Use:. Diagnostic Results XRay No qualifying data available (XRay) Computerized Tomagraphy No qualifying data available (CT) Ultrasound No qualifying data available (Ultrasound) Magnetic Resonance Imaging No qualifying data available (MRI) Electronically signed by Maribell Whitten DO 10/31/19 21:37 EDT Normal [facility] Basic Metabolic Panelon 05-27 Anion gap [Moles/Vol] 7 mmol/L Low 10 - 20 mmol/L [facility] Calcium [Mass/Vol] 9.3 mg/dL 8.4 - 10. 2 mg/dL [facility] Chloride [Moles/Vol] 104 mmol/L 98 - 10 8 mmol/L [facility] Creatinine [Mass/Vol] 0.73 mg/dL 0.4 - 1.1 mg/dL [facility] GFR/1.73 sq M predicted among non-blacks MDRD (S/P/Bld) [Vol rate/Area] The eGFR should be used for monitoring renal function only and not for medication dosing. [facility] GFR/1.73 sq M.predicted CKD-EPI (S/P/Bld) [Vol rate/Area] 98 >=60 mL/min/1.73 m2 [facility] Glucose [Mass/Vol] 90 mg/dL 65 - 99 mg/dL [facility] HCO3 [Moles/Vol] 31 mmol/L 21 - 32 mmol/L [facility] Interpretation and review of laboratory results Abnormal [facility] Potassium [Moles/Vol] 4.1 mmol/L 3.5 - 5.1 mmol/L [facility] Sodium [Moles/Vol] 138 mmol/L 135 - 145 mmol/L [facility] Urea nitrogen [Mass/Vol] 12 mg/dL 8 - 25 mg/dL [facility] Urea nitrogen/Creatinine [Mass ratio] 16.4 mg/mg [facility] TSH with Reflex Free T4on Interpretation and review of laboratory results Normal [facility] TSH Qn 2.68 m[IU]/L [facility] THYROID PEROXIDASE ANTIBODY (TPO)on 02-06-2019 Interpretation and review of laboratory results Normal [facility] TPO Ab Qn 0.3 [IU]/mL [facility] Comment on above: Assay performed by Ronak [employer] DXI Immunoassay. Comprehensive Metabolic Pane mario 02-05-2019 Albumin [Mass/Vol] 3.5 g/dL 3.2 - 5.2 g/dL [facility] ALP [Catalytic activity/Vol] 64 U/L 40 - 150 U/L [facility] ALT [Catalytic activity/Vol] 16 U/L 14 - 65 U/L [facility] Anion gap [Moles/Vol] 8 mmol/L Low 10 - 20 mmol/L [facility] AST [Catalytic activity/Vol] 10 U/L 0 - 45 U/L [facility] Bilirubin [Mass/Vol] 0.3 mg/dL 0 - 1.3 mg/dL [facility] Calcium [Mass/Vol] 8.6 mg/dL 8.4 - 10. 2 mg/dL [facility] Chloride [Moles/Vol] 108 mmol/L 98 - 10 8 mmol/L [facility] Creatinine [Mass/Vol] 0.57 mg/dL 0.4 - 1.1 mg/dL [facility] GFR/1.73 sq M predicted among non-blacks MDRD (S/P/Bld) [Vol rate/Area] The eGFR should be used for monitoring renal function only and not for medication dosing. [facility] GFR/1.73 sq M.predicted CKD-EPI (S/P/Bld) [Vol rate/Area] 110 >=60 mL/min/1.73 m2 [facility] Glucose [Mass/Vol] 91 mg/dL 65 - 99 mg/dL [facility] HCO3 [Moles/Vol] 28 mmol/L 21 - 32 mmol/L [facility] Interpretation and review of laboratory results Abnormal [facility] Potassium [Moles/Vol] 4.3 mmol/L 3.5 - 5.1 mmol/L [facility] Protein [Mass/Vol] 7.0 g/dL 6 - 8 g/dL [facility] Sodium [Moles/Vol] 140 mmol/L 135 - 145 mmol/L [facility] Urea nitrogen [Mass/Vol] 15 mg/dL 8 - 25 mg/dL [facility] Urea nitrogen/Creatinine [Mass ratio] 26.3 mg/mg High [facility] HEPATITIS PANEL, ACUTEon HAV IgM Ql (S) Negative Negative [facility] HBV core IgM Ql (S) Negative Negative [facility] surface Ag Ql (S) Negative Negative [facility] HCV Ab Ql (S) Positive Abnormal Negative [facility] Comment on above: A positive antibody test requires additional follow-up testing, Hepatitis C Virus Quantitation, to determine if a person is currently infected with Hepatitis C. Interpretation and review of laboratory results Abnormal [facility] Test performed using Eligio WILLIAM immunoassay system [facility] TSH with Reflex Free T4on Interpretation and review of laboratory results Normal [facility] TSH Qn 2.85 m[IU]/L [facility] VITAMIN D, TOTAL, 25-OHon 25-Hydroxyvitamin D2+25-Hydroxyvitamin D3 [Mass/Vol] 41 ng/mL 30 - 100 ng/mL [facility] Comment on above: Vitamin D status: Deficiency: <20 ng/mL Insufficiency: 20-30 ng/mL Sufficiency: 30-100 ng/mL Toxicity: >100 ng/mL Please note that Fluorescein which is used in angiography has been shown to falsely elevate the results of Vitamin D with our current assay. Evidence suggests that patients undergoing fluorescein dye angiography can retain small amounts of fluorescein in the body for up to 48 to 72 hours post-treatment. In the cases of patients with renal insufficiency, retention could be much longer. Samples should be resubmitted post fluorescein clearance to ensure there is no interference with the Vitamin D test result. Interpretation and review of laboratory results Normal [facility] Assay performed akira Salinas's chemiluminescence methodology. [facility] Mamm Screen w/CAD if perf ormed bilaton 10-31-2018 [place] Mamm Screen w/CAD if performed bilat Exam Date/Time: 10/31/2018 14:00 EDT Reason for Exam: SCREENING Report STUDY: [place] Mamm Screen w/CAD if performed bilat; 10/31/2018 2:00 pm ACCESSION NUMBER(S): [id number] ORDERING CLINICIAN: Kirstie Hines INDICATION: Screening. COMPARISON: 09/27/2017. FINDINGS: The breast tissue is heterogeneously dense, which may obscure small masses. No suspicious masses or calcifications are identified. CAD was utilized. IMPRESSION: No mammographic evidence of malignancy. BI-RADS CATEGORY: Category: 2 - Benign Finding. Recommendation: Normal Interval Follow-up, Over Age 40. Recall Interval: 12 Months. Breast Density: Heterogeneous. For any future breast imaging appointments, please call [phone]). FINAL REPORT Dictated: 10/31/2018 4:43 pm Karla VELEZ, Yaron Scherer Signed (Electronic Signature): 10/31/2018 4:43 pm Signed by: Yaron Acosta MD Technologist: FREDY Assessment: BI-RADS Category 2-Benign finding Recommendation: Normal interval follow-up Normal [facility] CT Head or Brain w/o Contras ton 10-28-2018 CT Head or Brain w/o Contrast Exam Date/Time: 10/28/2018 17:39 EDT Reason for Exam: Injury Report STUDY: CT Head or Brain w/o Contrast; 10/28/2018 5:39 pm INDICATION: Injury. COMPARISON: None ACCESSION NUMBER(S): [id number] ORDERING CLINICIAN: Christofer Em TECHNIQUE: CT of the brain from the skull vertex to the skull base, without intravenous contrast. FINDINGS: Acute intracranial hemorrhage: Negative Acute subdural hematoma: Negative Acute intracranial mass effect: Negative CT evidence of acute / subacute territorial ischemia: Negative Ventricles: Normal caliber and configuration Other brain findings: No additional findings to note Included paranasal sinuses: All clear Included mastoid air cells: All clear Skull: No depressed skull fracture Extracranial soft tissues: No substantial laceration or other soft tissue injury to the scalp, occular globes or other extracranial soft tissues. IMPRESSION: NO ACUTE INTRACRANIAL PROCESS. SKULL INTACT. FINAL REPORT Dictated: 10/28/2018 6:05 pm Jhonatan Welch MD Signed (Electronic Signature): 10/28/2018 6:05 pm Signed by: Jhonatan Welch MD Technologist: [facility] Normal [facility] CT SCANon 10-28-2018 Ordered by an unspecified provider. 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 COMPARISON: Prior PET-CT dated 03/28/2018 ACCESSION NUMBER(S): [id number] ORDERING CLINICIAN: John Mattson TECHNIQUE: DIVISION OF NUCLEAR MEDICINE POSITRON EMISSION TOMOGRAPHY (PET-CT) The patient received an intravenous dose of 14.5 mCi of Fluorine-18 fluorodeoxyglucose (FDG). The patient was placed in a dark quiet room. Positron emission tomographic (PET) images from skull vertex to the feet were then acquired after a one hour delay. Also acquired was a contemporaneous low dose non-contrast CT scan performed for attenuation correction of PET images and anatomic localization. The PET and CT images were digitally fused for display. All images were acquired on a combined PET-CT scanner unit. Some areas of FDG accumulation may be described in standardized uptake value (SUV) units. CODING: Subsequent Treatment Strategy (PS) CALIBRATION: Dose Gbzxsdrrc-ek-Outp Interval (mins): 70 minutes min Mediastinal bloodpool SUV (normal 1.5-2.5): 1.9 Blood glucose: 99 mg/dL FINDINGS: HEAD AND NECK: No evidence of focal hypermetabolic lesion in the brain parenchyma, noting that evaluation is limited because of the expected physiologic diffuse FDG uptake in the brain. No focal hypermetabolic soft tissue lesion is seen in the neck. Previously identified abnormality in the region of the base of the tongue is not readily evident on the current study. No hypermetabolic cervical lymphadenopathy is present. CHEST: No focal hypermetabolic lesion is seen in the lung parenchyma. No evidence of hypermetabolic mediastinal, hilar or axillary lymphadenopathy. Exam Date/Time: 06/28/2018 16:35 EST Report ABDOMEN AND PELVIS: No hypermetabolic soft tissue lesion is present in the abdomen and pelvis. No evidence of hypermetabolic lymphadenopathy. Physiologic radiotracer uptake is present in the liver and spleen with excretion into the bowel loops and the genitourinary tract. MUSCULOSKELETAL/EXTREM ITIES: No focal hypermetabolic lesion is seen in the axial or appendicular to suggest osseous metastasis. IMPRESSION: No definite evidence of an active neoplastic/metastatic process. Previously noted abnormality in the region of the base of the tongue is not readily evident on the current study. I personally reviewed the image(s) / study and agree with the findings and interpretation as stated. This study was interpreted at [facility]. FINAL REPORT Dictated: 06/30/2018 11:13 am Espinoza Aguirre MD Signed (Electronic Signature): 06/30/2018 11:13 am Signed by: Espinoza Aguirre MD Technologist: [facility] PET w/ CT Scan Skull Base to Midthighon 04-02-2018 NM PET w/ CT Scan Skull Base to Midthigh Exam Date/Time: 03/28/2018 19:00 EDT Reason for [...] the physician portal dated 02/20/2018. ACCESSION NUMBER(S): [id number] ORDERING CLINICIAN: John Mattson TECHNIQUE: DIVISION OF NUCLEAR MEDICINE POSITRON EMISSION TOMOGRAPHY (PET-CT) The patient received an intravenous dose of 16.48 mCi of Fluorine-18 fluorodeoxyglucose (FDG). Positron emission tomographic (PET) images [...] Report Subsequent Treatment Strategy (PS) CALIBRATION: Dose Nfyqqqzam-vw-Jvff Interval (mins): Mediastinal bloodpool SUV (normal 1.5-2.5): [...] to treatment. This study was interpreted at [facility]. FINAL REPORT Dictated: 04/01/2018 2:17 pm Leidy Jackman MD Signed (Electronic Signature): 04/01/2018 2:17 pm Signed by: Leidy Jackman MD Technologist: Report last revised on 04/02/2018 16:02 EST by Leidy Jackman MD Normal [facility] Comprehensive Metabolic Pane mario 09-18-2017 Alanine aminotransferase (ALT) 17 U/L Normal 14-65 [facility] Comment on above: Result Comment: This test result might be falsely depressed or falsely elevated onsamples drawn from patients taking Sulfasalazine and Sulfapyridine.Venipuncture should occur prior to taking either of these drugs. Performed By: #### C MET, TSH ####Unless otherwise noted, all testing performed by [address]: [id number] Director: Issa Grayson M.D. Albumin 3.6 g/dL Normal 3.2-5.2 [facility] Comment on above: Performed By: #### C MET, TSH ####Unless otherwise noted, all testing performed by [address]: [id number] Director: Issa Grayson M.D. Alkaline phosphatase (ALP) 75 U/L Normal 40-150 [facility] Comment on above: Performed By: #### C MET, TSH ####Unless otherwise noted, all testing performed by [place] [id number]: [id number] Director: Issa Grayson M.D. Aspartate aminotransferase (AST) 9 U/L Normal 0-45 [facility] Comment on above: Result Comment: This test result might be falsely depressed or falsely elevated onsamples drawn from patients taking Sulfasalazine and Sulfapyridine.Venipuncture should occur prior to taking either of these drugs. Performed By: #### C MET, TSH ####Unless otherwise noted, all testing performed by [place] [id number]: [id number] Director: Issa Grayson M.D. Bilirubin (total) 0.3 mg/dL Normal 0.3-1.2 [facility] Comment on above: Performed By: #### C MET, TSH ####Unless otherwise noted, all testing performed by [place] [id number]: [id number] Director: Issa Gryason M.D. Calcium 9.0 mg/dL Normal 8.4-10.2 [facility] Comment on above: Performed By: #### C MET, TSH ####Unless otherwise noted, all testing performed by [place] [id number]: [id number] Director: Issa Grayson M.D. Chloride 107 mmol/L Normal 98-108 [facility] Comment on above: Performed By: #### C MET, TSH ####Unless otherwise noted, all testing performed by [place] [id number]: [id number] Director: Issa Grayson M.D. CO2 26 mmol/L Normal 21-32 [facility] Comment on above: Performed By: #### C MET, TSH ####Unless otherwise noted, all testing performed by [place] [id number]: [id number] Director: Issa Grayson M.D. Creatinine 0.57 mg/dL Normal 0.40-1.10 [facility] Comment on above: Performed By: #### C MET, TSH ####Unless otherwise noted, all testing performed by [place] [id number]: [id number] Director: Issa Grayson M.D. eGFR (black) mL/min/{1.73_m2} Normal [facility] Comment on above: Result Comment: Afri can [place] GFR Calc Performed By: #### C MET, TSH ####Unless otherwise noted, all testing performed by [address] [id number]: [id number] Director: Issa Grayson M.D. eGFR (non-black) mL/min/{1.73_m2} Normal [facility] Comment on above: Result Comment: Non- GFR CalceGFR is an estimated Glomerular Filtration Rate based on the valueof the patient's serum creatinine. In outpatients, eGFR should be usedas a helpful tool in screening for CKD. In inpatients or patients withacute renal failure, eGFR represents the GFR at the moment of the drawand should be used with caution. Performed By: #### C MET, TSH ####Unless otherwise noted, all testing performed by [address] [phone]: [id number] Director: Issa Grayson M.D. Glucose 95 mg/dL Invalid Interpretation Code 70 - 99 mg/dL [facility] Glucose mass conc 95 mg/dL Normal 70-99 [facility] Comment on above: Result Comment: This test result might be falsely depressed or falsely elevated onsamples drawn from patients taking Sulfasalazine and Sulfapyridine.Venipuncture should occur prior to taking either of these drugs. Performed By: #### C MET, TSH ####Unless otherwise noted, all testing performed by [address] [phone]: [id number] Director: Issa Grayson M.D. Potassium 3.9 mmol/L Normal 3.5-5.1 [facility] Comment on above: Performed By: #### C MET, TSH ####Unless otherwise noted, all testing performed by [address] [id number]: [id number] Director: Issa Grayson M.D. Protein 7.1 g/dL Normal 6.0-8.0 [facility] Comment on above: Performed By: #### C MET, TSH ####Unless otherwise noted, all testing performed by [address] [phone]: [id number] Director: Issa Grayson M.D. Sodium 138 mmol/L Normal 135-145 [facility] Comment on above: Performed By: #### C MET, TSH ####Unless otherwise noted, all testing performed by [address] [phone]: [id number] Director: Issa Grayson M.D. Urea nitrogen 12 mg/dL Normal 01-18 [facility] Comment on above: Performed By: #### C MET, TSH ####Unless otherwise noted, all testing performed by [address] [id number]: [id number] Director: Issa Grayson M.D. Urine, bilirubin presence 0.3 mg/dL Invalid Interpretation Code 0.3 - 1.2 mg/dL [facility] POC Glucose Deviceon 018 Glucose 115 mg/dL Invalid Interpretation Code [facility] Interpretation and review of laboratory results Normal Invalid Interpretation Code [facility] POC Glycosylated Hemoglobin (Hb A1C)on 09-18-2017 HbA1c 5.6 % Invalid Interpretation Code 4 - 6 % [facility] TSHon 09-18-2017 Interpretation and review of laboratory results Abnormal Invalid Interpretation Code [facility] Thyroid stimulating hormone (TSH) 11.00 uIU/mL High 0.320 - 5.000 [facility] Thyroid stimulating hormone (TSH) 11.00 uIU/mL High 0.320-5.000 [facility] Comment on above: Result Comment: Samp les from patients routinely receiving high dose biotin therapy(100-300 mg/day) may show falsely decreased results. Please correlateclinically. Performed By: #### C MET, TSH ####Unless otherwise noted, all testing performed by [address] [phone]: [id number] Director: Issa Grayson M.D. Thyroxine (T4) free 0.9 ng/dL Normal 0.76-1.79 [facility] Comment on above: Result Comment: Samp les from patients routinely receiving high dose biotin therapy(100-300 mg/day) may show falsely decreased results. Please correlateclinically. Performed By: #### C MET, TSH ####Unless otherwise noted, all testing performed by [address] [phone]: [id number] Director: Issa Grayson M.D. Vital Signs Date Time Vital Sign Value Performing Clinician Facility 02-06-2024 13:43-0400 Body height 157.5 cm Isidro Wakefield MD Work Phone: [facility] 02-06-2024 13:43-0400 Body mass index (BMI) [Ratio] 31.08 kg/m2 Isidro Wakefield MD Work Phone: [facility] 02-06-2024 13:43-0400 Body temperature 97.9 [degF] Isidro Wakefield MD Work Phone: [facility] 02-06-2024 13:43-0400 Body weight 77.07 kg Isidro Wakefield MD Work Phone: [facility] 02-06-2024 13:43-0400 Diastolic blood pressure 71 mm[Hg] Isidro Wakefield MD Work Phone: [facility] 02-06-2024 13:43-0400 Heart rate 90 /min Isidro Wakefield MD Work Phone: [facility] 02-06-2024 13:43-0400 Respiratory rate 16 /min Isidro Wakefield MD Work Phone: [facility] 02-06-2024 13:43-0400 SaO2% (BldA) [Mass fraction] 96 % Isidro Wakefield MD Work Phone: [facility] 02-06-2024 13:43-0400 Systolic blood pressure 110 mm[Hg] Isidro Wakefield MD Work Phone: [facility] 01-13-2024 16:03-0400 Body height 157.5 cm John Mattson MD Work Phone: [facility] 01-13-2024 16:03-0400 Body mass index (BMI) [Ratio] 31.28 kg/m2 John Mattson MD Work Phone: [facility] 01-13-2024 16:03-0400 Body temperature 97.2 [degF] John Mattson MD Work Phone: [facility] 01-13-2024 16:03-0400 Body weight 77.56 kg John Mattson MD Work Phone: [facility] 06-02-2023 18:30-0500 Diastolic blood pressure 56 mm[Hg] Kirstie Hines SENIOR SALES ASSOCIATE[employer]REC[employer]DS SUPERVISOR Work Phone: [facility] 06-02-2023 18:30-0500 Heart rate 91 /min Kirstie Hines SENIOR SALES ASSOCIATE-RECORDS SUPERVISOR Work Phone: [facility] 06-02-2023 18:30-0500 Respiratory rate 20 /min Kirstie Flora SENIOR SALES ASSOCIATE-RECORDS SUPERVISOR Work Phone: [facility] 06-02-2023 18:30-0500 SaO2% (BldA) [Mass fraction] 97 % Kirstie Flora SENIOR SALES ASSOCIATE-RECORDS SUPERVISOR Work Phone: [facility] 06-02-2023 18:30-0500 Systolic blood pressure 96 mm[Hg] [facility] SENIOR SALES ASSOCIATE-RECORDS SUPERVISOR Work Phone: [facility] 06-02-2023 15:48-0500 Body height 157.5 cm [facility] SENIOR SALES ASSOCIATE-RECORDS SUPERVISOR Work Phone: [facility] 06-02-2023 15:48-0500 Body mass index (BMI) [Ratio] 31.09 kg/m2 [facility] SENIOR SALES ASSOCIATE-RECORDS SUPERVISOR Work Phone: [facility] 06-02-2023 15:48-0500 Body temperature 98.8 [degF] [facility] SENIOR SALES ASSOCIATE-RECORDS SUPERVISOR Work Phone: [facility] 06-02-2023 15:48-0500 Body weight 77.11 kg [facility] SENIOR SALES ASSOCIATE-RECORDS SUPERVISOR Work Phone: [facility] 01-31-2023 13:06-0400 Body height 157.5 cm Isidro Wakefield MD Work Phone: [facility] 01-31-2023 13:06-0400 Body mass index (BMI) [Ratio] 33.84 kg/m2 Isidro Wakefield MD Work Phone: [facility] 01-31-2023 13:06-0400 Body temperature 98.2 [degF] Isidro Wakefield MD Work Phone: [facility] 01-31-2023 13:06-0400 Body weight 83.92 kg Isidro Wakefield MD Work Phone: [facility] 01-31-2023 13:06-0400 Diastolic blood pressure 62 mm[Hg] Isidro Wakefield MD Work Phone: [facility] 01-31-2023 13:06-0400 Heart rate 79 /min Isidro Wakefield MD Work Phone: [facility] 01-31-2023 13:06-0400 Respiratory rate 16 /min Isidro Wakefield MD Work Phone: [facility] 01-31-2023 13:06-0400 SaO2% (BldA) [Mass fraction] 97 % Isidro Wakefield MD Work Phone: [facility] 01-31-2023 13:06-0400 Systolic blood pressure 94 mm[Hg] Isidro Wakefield MD Work Phone: [facility] 01-29-2023 14:45-0400 Body height 162.56 cm [employer] Work Phone: [facility] 01-29-2023 14:45-0400 Body mass index (BMI) [Ratio] 31.7 kg/m2 [employer] Work Phone: [facility] 01-29-2023 14:45-0400 Body temperature 98.3 [degF] [employer] Work Phone: [facility] 01-29-2023 14:45-0400 Body weight 83.91 kg [employer] Work Phone: [facility] 01-29-2023 14:45-0400 Diastolic blood pressure 62 mm[Hg] [employer] Work Phone: [facility] 01-29-2023 14:45-0400 Heart rate 68 /min [employer] Work Phone: [facility] 01-29-2023 14:45-0400 Respiratory rate 18 /min [employer] Work Phone: [facility] 01-29-2023 14:45-0400 SaO2% (BldA) [Mass fraction] 98 % [employer] Work Phone: [facility] 01-29-2023 14:45-0400 Systolic blood pressure 101 mm[Hg] [employer] Work Phone: [facility] 01-16-2023 14:06-0400 Body mass index (BMI) [Ratio] 32 kg/m2 [employer] Work Phone: [facility] 01-16-2023 14:06-0400 Body temperature 97 [degF] [employer] Work Phone: [facility] 01-16-2023 14:06-0400 Body weight 84.53 kg [employer] [facility] [employer] Work Phone: [facility] 01-16-2023 14:06-0400 Diastolic blood pressure 66 mm[Hg] [employer] KIRSTIE [employer] Work Phone: [facility] 01-16-2023 14:06-0400 Heart rate 77 /min [employer] [facility] [employer] Work Phone: [facility] 01-16-2023 14:06-0400 Respiratory rate 16 /min [employer] [facility] [employer] Phone: [facility] 01-16-2023 14:06-0400 SaO2% (BldA) [Mass fraction] 98 % [employer] Work Phone: [facility] 01-16-2023 14:06-0400 Systolic blood pressure 100 mm[Hg] [employer]IRSTIE [employer] Work Phone: [facility] 10-29-2022 13:53-0400 Body mass index (BMI) [Ratio] 35.45 kg/m2 Kirstie Ley [employer] Work Phone: [facility] Work Phone: 10-29-2022 13:53-0400 Body surface area Derived from formula 1.89 m2 Kirstie Ley [employer] Work Phone: [facility] Work Phone: 10-29-2022 13:53-0400 Body weight 87.91 kg Kirstie M [employer] Work Phone: [facility] Work Phone: 07-27-2022 13:31-0500 Body height 157.5 cm Isidro Wakefield MD Work Phone: [facility] 07-27-2022 13:31-0500 Body mass index (BMI) [Ratio] 37.49 kg/m2 Isidro Wakefield MD Work Phone: [facility] 07-27-2022 13:31-0500 Body temperature 98.1 [degF] Isidro Wakefield MD Work Phone: [facility] 07-27-2022 13:31-0500 Body weight 92.99 kg Isidro Wakefield MD Work Phone: [facility] 07-27-2022 13:31-0500 Diastolic blood pressure 80 mm[Hg] Isidro Wakefield MD Work Phone: [facility] 07-27-2022 13:31-0500 Heart rate 85 /min Isidro Wakefield MD Work Phone: [facility] 07-27-2022 13:31-0500 Respiratory rate 16 /min Isidro Wakefield MD Work Phone: [facility] 07-27-2022 13:31-0500 SaO2% (BldA) [Mass fraction] 97 % Isidro Wakefield MD Work Phone: [facility] 07-27-2022 13:31-0500 Systolic blood pressure 117 mm[Hg] Isidro Wakefield MD Work Phone: [facility] 05-09-2022 14:06-0500 Body height 157.48 cm Kirstie Av Lentner Work Phone: [facility] Work Phone: 05-09-2022 14:06-0500 Body mass index (BMI) [Ratio] 36.21 kg/m2 Kirstie M Lentner Work Phone: [facility] Work Phone: 05-09-2022 14:06-0500 Body surface area Derived from formula 1.9 m2 Kirstie [facility] Work Phone: -Otolaryngology- [facility] Work Phone: 05-09-2022 14:06-0500 Body weight 89.81 kg Kirstie Hines Work Phone: -Otolaryngology- [place] Work Phone: 01-30-2022 14:10-0400 Body height 157.5 cm Isidro Wakefield MD Work Phone: [facility] 01-30-2022 14:10-0400 Body mass index (BMI) [Ratio] 32.92 kg/m2 Isidro Wakefield MD Work Phone: [facility] 01-30-2022 14:10-0400 Body temperature 97.5 [degF] Isidro Wakefield MD Work Phone: [facility] 01-30-2022 14:10-0400 Body weight 81.65 kg Isidro Wakefield MD Work Phone: [facility] 01-30-2022 14:10-0400 Diastolic blood pressure 74 mm[Hg] Isidro Wakefield MD Work Phone: [facility] 01-30-2022 14:10-0400 Heart rate 49 /min Isidro Wakefield MD Work Phone: [facility] 01-30-2022 14:10-0400 Respiratory rate 16 /min Isidro Wakefield MD Work Phone: [facility] 01-30-2022 14:10-0400 SaO2% (BldA) [Mass fraction] 95 % Isidro Wakefield MD Work Phone: [facility] 01-30-2022 14:10-0400 Systolic blood pressure 111 mm[Hg] Isidro Wakefield MD Work Phone: [facility] 11-28-2021 12:35-0400 Body height 162.[address] Gloria Goode Work Phone: [facility] Work Phone: 11-28-2021 12:35-0400 Body mass index (BMI) [Ratio] 32.3 kg/m2 Dr. Gloria Goode Work Phone: [facility] Work Phone: 11-28-2021 12:35-0400 Body temperature 97.9 [degF] Dr. Gloria Goode Work Phone: [facility] Work Phone: 11-28-2021 12:35-0400 Body weight 85.[address] Gloria Goode Work Phone: [facility] Work Phone: 11-28-2021 12:35-0400 Diastolic blood pressure 77 mm[Hg] Dr. Gloria Goode Work Phone: [facility] Work Phone: 11-28-2021 12:35-0400 Heart rate 72 /min Dr. Gloria Goode Work Phone: [facility] Work Phone: 11-28-2021 12:35-0400 Respiratory rate 16 /min Dr. Gloria Goode Work Phone: [facility] Work Phone: 11-28-2021 12:35-0400 SaO2% (BldA) [Mass fraction] 98 % Dr. Gloria Goode Work Phone: [facility] Work Phone: 11-28-2021 12:35-0400 Systolic blood pressure 119 mm[Hg] Dr. Gloria Goode Work Phone: [facility] Work Phone: 10-30-2021 14:12-0400 Body height 157.48 cm [facility] Work Phone: [facility] Work Phone: 10-30-2021 14:12-0400 Body mass index (BMI) [Ratio] 34.68 kg/m2 Kirstie Ley [employer] Work Phone: [facility] Work Phone: 10-30-2021 14:12-0400 Body surface area Derived from formula 1.87 m2 Kirstie Ley [employer] Work Phone: [facility] Work Phone: 10-30-2021 14:12-0400 Body weight 86 kg Kirstie M [employer] Work Phone: [facility] Work Phone: 10-27-2021 10:11-0400 Body height 157.4 cm KirstieLoogla Other Phone: [facility] 10-27-2021 10:11-0400 Body temperature 97.52 [degF] [employer] Other Phone: [facility] 10-27-2021 10:11-0400 Diastolic blood pressure 76 mm[Hg] [employer] Other Phone: [facility] 10-27-2021 10:11-0400 Heart rate 95 /min KirstieLoogla Other Phone: [facility] 10-27-2021 10:11-0400 Respiratory rate 20 /min KirstieLoogla Other Phone: [facility] 10-27-2021 10:11-0400 SaO2% (BldA) [Mass fraction] 96 % KirstieLoogla Other Phone: [facility] 10-27-2021 10:11-0400 Systolic blood pressure 116 mm[Hg] [employer] Other Phone: [facility] 10-19-2021 11:29-0400 Body height 157.48 cm Kirstie M [employer] Work Phone: [facility] Work Phone: 10-19-2021 11:29-0400 Body mass index (BMI) [Ratio] 30.18 kg/m2 Kirstie Hines Work Phone: [facility] 120 Work Phone: 10-19-2021 11:29-0400 Body surface area Derived from formula 1.76 m2 Kirstie Ley Lentner Work Phone: [facility] 120 Work Phone: 10-19-2021 11:29-0400 Body weight 74.84 kg Kirstie Ley Lentner Work Phone: [facility] 120 Work Phone: 10-19-2021 11:29-0400 Diastolic blood pressure 80 mm[Hg] Kirstie Hines Work Phone: [facility] 120 Work Phone: 10-19-2021 11:29-0400 Systolic blood pressure 110 mm[Hg] Kirstie Hines Work Phone: [facility] 120 Work Phone: 08-21-2021 10:51-0400 Body height 157.5 cm Kirstie Hines [employer] Work Phone: [facility] 08-21-2021 10:51-0400 Body mass index (BMI) [Ratio] 33.84 kg/m2 Kirstiemarta Hines [employer] SU[employer] Work Phone: [facility] 08-21-2021 10:51-0400 Body temperature 97.9 [degF] Kirstie [employer] SUPER[employer]OR Work Phone: [facility] 08-21-2021 10:51-0400 Body weight 83.92 kg Kirstie Hines [employer] SUPER[employer]OR Work Phone: [facility] 08-21-2021 10:51-0400 Diastolic blood pressure 60 mm[Hg] Kirstie Hines [employer] SUPER[employer] Work Phone: [facility] 08-21-2021 10:51-0400 Heart rate 82 /min [facility] Work Phone: [facility] 08-21-2021 10:51-0400 Respiratory rate 16 /min [facility] Work Phone: [facility] 08-21-2021 10:51-0400 SaO2% (BldA) [Mass fraction] 97 % [facility] Work Phone: [facility] 08-21-2021 10:51-0400 Systolic blood pressure 96 mm[Hg] [facility] Work Phone: [facility] 08-09-2021 12:59-0400 Body mass index (BMI) [Ratio] 31.9 kg/m2 Dr. Gloria Goode Work Phone: [facility] Work Phone: 08-09-2021 12:59-0400 Body temperature 97 [degF] Dr. Gloria Goode Work Phone: [facility] Work Phone: 08-09-2021 12:59-0400 Body weight 84.[address] Gloria Goode Work Phone: [facility] Work Phone: 08-09-2021 12:59-0400 Diastolic blood pressure 73 mm[Hg] Dr. Gloria Goode Work Phone: [facility] Work Phone: 08-09-2021 12:59-0400 Heart rate 85 /min Dr. Gloria Goode Work Phone: [facility] Work Phone: 08-09-2021 12:59-0400 Respiratory rate 16 /min Dr. Gloria Goode Work Phone: [facility] Work Phone: 08-09-2021 12:59-0400 SaO2% (BldA) [Mass fraction] 98 % Dr. Gloria Goode Work Phone: [facility] Work Phone: 08-09-2021 12:59-0400 Systolic blood pressure 112 mm[Hg] Dr. Gloria Goode Work Phone: [facility] Work Phone: 05-01-2021 15:58-0500 Body height 157.48 cm Kirstie [employer] Work Phone: [facility] [place] Work Phone: 05-01-2021 15:58-0500 Body mass index (BMI) [Ratio] 33.01 kg/m2 Kirstie [employer] Work Phone: [facility] Work Phone: 05-01-2021 15:58-0500 Body surface area Derived from formula 1.83 m2 Kirstie M [employer] Work Phone: [facility] [place] Work Phone: 05-01-2021 15:58-0500 Body temperature 97.7 [degF] Kirstie M [employer] Work Phone: [facility] [place] Work Phone: 05-01-2021 15:58-0500 Body weight 81.87 kg Kirstie M [employer] Work Phone: [facility] Work Phone: 05-01-2021 15:58-0500 Respiratory rate 16 /min Kirstie M [employer] Work Phone: [facility] Work Phone: 01-19-2021 13:08-0400 Body height 157.48 cm Kirstie M [employer] Work Phone: [facility] [place] Work Phone: 01-19-2021 13:08-0400 Body mass index (BMI) [Ratio] 31.46 kg/m2 [facility] [employer] Phone: [employer] [facility] Work Phone: 01-19-2021 13:08-0400 Body surface area Derived from formula 1.79 m2 [facility] [employer] Phone: [employer] [facility] Work Phone: 01-19-2021 13:08-0400 Body weight 78.02 kg [facility] [employer] Phone: [employer] [facility] Work Phone: 09-05-2020 09:46-0400 BMI (Body Mass Index) 27.62 kg/m2 [facility] 09-05-2020 09:46-0400 Body Temperature 98.49 [degF] [facility] 09-05-2020 09:46-0400 Body weight 75.3 kg [facility] 09-05-2020 09:46-0400 BP Diastolic 67 mm[Hg] [facility] 09-05-2020 09:46-0400 BP Systolic 113 mm[Hg] [facility] 09-05-2020 09:46-0400 Height 165.1 cm [facility] 09-05-2020 09:46-0400 Pulse (Heart Rate) 90 /min [facility] 09-05-2020 09:46-0400 Pulse Oximetry 95 % [facility] 09-05-2020 09:46-0400 Respiratory Rate 16 /min [facility] 02-05-2020 09:52-0400 BMI (Body Mass Index) 27.34 kg/m2 [facility] 02-05-2020 09:52-0400 Body Temperature 98.29 [degF] [facility] 02-05-2020 09:52-0400 Body weight 74.53 kg [facility] 02-05-2020 09:52-0400 BP Diastolic 79 mm[Hg] [facility] 02-05-2020 09:52-0400 BP Systolic 113 mm[Hg] [facility] 02-05-2020 09:52-0400 Height 165.1 cm [facility] 02-05-2020 09:52-0400 Pulse (Heart Rate) 83 /min [facility] 02-05-2020 09:52-0400 Pulse Oximetry 99 % [facility] 02-05-2020 09:52-0400 Respiratory Rate 16 /min [facility] 01-26-2020 08:44-0400 BMI (Body Mass Index) 30.53 kg/m2 [facility] 01-26-2020 08:44-0400 Body Temperature 98.71 [degF] [facility] 01-26-2020 08:44-0400 Body weight 75.7 kg [facility] 01-26-2020 08:44-0400 BP Diastolic 68 mm[Hg] [facility] 01-26-2020 08:44-0400 BP Systolic 107 mm[Hg] [facility] 01-26-2020 08:44-0400 Pulse (Heart Rate) 75 /min [facility] 01-26-2020 08:44-0400 Pulse Oximetry 97 % [facility] 01-26-2020 08:44-0400 Respiratory Rate 18 /min [facility] 06-08-2019 11:21-0500 BP Diastolic 70 mm[Hg] [facility] Comment on above: manual 06-08-2019 11:21-0500 BP Systolic 104 mm[Hg] [facility] Comment on above: manual 06-08-2019 10:53-0500 BMI (Body Mass Index) 31.09 kg/m2 [facility] 06-08-2019 10:53-0500 Body Temperature 97.59 [degF] [facility] 06-08-2019 10:53-0500 Body weight 77.11 kg [facility] 06-08-2019 10:53-0500 Height 157.5 cm [facility] 06-08-2019 10:53-0500 Pulse (Heart Rate) 62 /min [facility] 06-08-2019 10:53-0500 Pulse Oximetry 97 % [facility] 06-08-2019 10:53-0500 Respiratory Rate 14 /min [facility] 02-05-2019 09:48-0400 BMI (Body Mass Index) 30.09 kg/m2 [facility] 02-05-2019 09:48-0400 Body Temperature 98.01 [degF] [facility] 02-05-2019 09:48-0400 Body weight 74.62 kg [facility] 02-05-2019 09:48-0400 BP Diastolic 68 mm[Hg] [facility] 02-05-2019 09:48-0400 BP Systolic 102 mm[Hg] [facility] 02-05-2019 09:48-0400 Height 157.5 cm [facility] 02-05-2019 09:48-0400 Pulse (Heart Rate) 70 /min [facility] 02-05-2019 09:48-0400 Pulse Oximetry 94 % [facility] 02-05-2019 09:48-0400 Respiratory Rate 16 /min [facility] 11-05-2018 09:41-0400 BMI (Body Mass Index) 26.76 kg/m2 [facility] 11-05-2018 09:41-0400 Body Temperature 97.9 [degF] [facility] 11-05-2018 09:41-0400 BP Diastolic 70 mm[Hg] [facility] 11-05-2018 09:41-0400 BP Systolic 107 mm[Hg] [facility] 11-05-2018 09:41-0400 Height 165.2 cm [facility] 11-05-2018 09:41-0400 Pulse (Heart Rate) 64 /min [facility] 11-05-2018 09:41-0400 Pulse Oximetry 96 % [facility] 11-05-2018 09:41-0400 Weight 73.03 kg [facility] 10-29-2018 08:10-0400 BMI (Body Mass Index) 26.79 kg/m2 [facility] 10-29-2018 08:10-0400 Body Temperature 97.81 [degF] [facility] 10-29-2018 08:10-0400 BP Diastolic 70 mm[Hg] [facility] 10-29-2018 08:10-0400 BP Systolic 105 mm[Hg] [facility] 10-29-2018 08:10-0400 Height 165.1 cm [facility] 10-29-2018 08:10-0400 Pulse (Heart Rate) 72 /min [facility] 10-29-2018 08:10-0400 Pulse Oximetry 98 % [facility] 10-29-2018 08:10-0400 Respiratory Rate 18 /min [facility] 10-29-2018 08:10-0400 Weight 73.03 kg [facility] 05-15-2018 13:49-0500 BMI (Body Mass Index) 29.26 kg/m2 [facility] 05-15-2018 13:49-0500 Body Temperature 97.81 [degF] [facility] 05-15-2018 13:49-0500 BP Diastolic 72 mm[Hg] [facility] 05-15-2018 13:49-0500 BP Systolic 108 mm[Hg] [facility] 05-15-2018 13:49-0500 Height 157.5 cm [facility] 05-15-2018 13:49-0500 Pulse (Heart Rate) 86 /min [facility] 05-15-2018 13:49-0500 Pulse Oximetry 98 % [facility] 05-15-2018 13:49-0500 Respiratory Rate 16 /min [facility] 05-15-2018 13:49-0500 Weight 72.58 kg [facility] 03-18-2018 13:54-0400 BMI (Body Mass Index) 30.18 kg/m2 [facility] 03-18-2018 13:54-0400 Body Temperature 98.01 [degF] [facility] 03-18-2018 13:54-0400 BP Diastolic 70 mm[Hg] [facility] 03-18-2018 13:54-0400 BP Systolic 101 mm[Hg] [facility] 03-18-2018 13:54-0400 Height 157.5 cm [facility] 03-18-2018 13:54-0400 Pulse (Heart Rate) 82 /min [facility] 03-18-2018 13:54-0400 Pulse Oximetry 97 % [facility] 03-18-2018 13:54-0400 Respiratory Rate 16 /min [facility] 03-18-2018 13:54-0400 Weight 74.84 kg [facility] 09-18-2017 09:11-0400 BMI (Body Mass Index) 34.81 kg/m2 [facility] 09-18-2017 09:11-0400 Body Temperature 97.7 [degF] Felisa [facility] 09-18-2017 09:11-0400 BP Diastolic 76 mm[Hg] [facility] 09-18-2017 09:11-0400 BP Systolic 112 mm[Hg] [facility] 09-18-2017 09:11-0400 Height 157.5 cm [facility] 09-18-2017 09:11-0400 Pulse (Heart Rate) 73 /min [facility] 09-18-2017 09:11-0400 Pulse Oximetry 98 % [facility] 09-18-2017 09:11-0400 Respiratory Rate 16 /min [facility] 09-18-2017 09:11-0400 Weight 86.32 kg [facility] Encounters Encounter Date Encounter Type Care Provider Facility Start: 07-31-2024 End: 07-31-2024 ambulatory [facility] Start: 05-29-2024 End: 05-29-2024 Refill Isidro Wakefield MD Work Phone: [facility] Start: 05-14-2024 End: 05-14-2024 Refill Isidro Wakefield MD Work Phone: [facility] Comment on above: Depression with anxi ety Start: 03-23-2024 End: 03-23-2024 Refill Isidro Wakefield MD Work Phone: [facility] Comment on above: Depression with anxi ety Start: 03-12-2024 End: 03-16-2024 ambulatory ISIDRO WAKEFIELD [facility] Start: 02-11-2024 End: 02-11-2024 ambulatory [facility] Start: 02-07-2024 End: 02-07-2024 Orders Only Isidro Wakefield MD Work Phone: [facility] [place] Comment on above: Hypothyroidism, unsp ecified type (Primary Dx) Start: 02-06-2024 End: 02-10-2024 [facility] Start: 02-06-2024 End: 02-06-2024 Periodic preventive med est patient 40-64yrs Isidro Wakefield MD Work Phone: [facility] Comment on above: Hypothyroidism (acqu ired) (Primary Dx); Mild major depression (HCC); Malignant neoplasm of base of tongue (HCC); Obesity (BMI 30-39.9) Start: 02-06-2024 End: 02-06-2024 ambulatory [facility] Start: 02-04-2024 End: 02-04-2024 ambulatory [facility] Start: 02-04-2024 End: 02-04-2024 ambulatory [facility] Start: 01-13-2024 End: 01-13-2024 Office outpatient visit 25 minutes John Mattson MD Work Phone: [facility] Comment on above: Xerostomia due to ra diotherapy (Primary Dx); Pharyngoesophageal dysphagia; Malignant neoplasm of oropharynx (Multi); Acquired hypothyroidism Start: 01-13-2024 End: 01-13-2024 ambulatory JOHN MATTSON [facility] Start: 11-06-2023 Refill Isidro Wakefield MD Work Phone: [facility] Comment on above: Hypothyroidism (acqu ired) Start: 10-24-2023 End: 10-24-2023 ambulatory [facility] Start: 10-24-2023 End: 10-24-2023 Office outpatient visit 15 minutes Isidro Wakefield MD Work Phone: [facility] Comment on above: Mild major depressio n (HCC) (Primary Dx) Start: 08-19-2023 Refill Jarad Marroquin RN [facility] Comment on above: Depression with anxi ety Start: 07-10-2023 Refill Isidro Wakefield MD Work Phone: [facility] Start: 06-03-2023 End: 06-03-2023 Subsequent hospital visit by physician Aram Hebertv1 [facility] Comment on above: Arrived Start: 06-03-2023 End: 06-03-2023 ambulatory KENDAL Cruz [facility] Start: 06-02-2023 End: 06-02-2023 Emergency department patient visit KIRSTIE HINES [facility] Comment on above: RSV infection (Prima ry Dx) Start: 04-08-2023 Refill Essence Herring LPN [facility] Start: 03-01-2023 End: 03-01-2023 Clinical Support Essence Herring LPN [facility] Comment on above: Need for vaccination (Primary Dx) Start: 01-31-2023 End: 01-31-2023 Office outpatient visit 25 minutes Isidro Wakefield MD Work Phone: [facility] Comment on above: Malignant neoplasm o f base of tongue (HCC) (Primary Dx); Abnormal mammogram; Hypothyroidism (acquired); Healthcare maintenance; Irritable bowel syndrome with constipation Start: 01-31-2023 End: 01-31-2023 Patient encounter status Isidro Wakefield MD Work Phone: [facility] Start: 01-29-2023 End: 01-29-2023 ambulatory YOLANDA THACKER HUTTIG Work Phone: [facility] Work Phone: Start: 01-29-2023 End: 01-29-2023 Patient encounter procedure YOLANDA THACKER HUTTIG Work Phone: [facility] Work Phone: Start: 01-29-2023 End: 01-29-2023 Patient encounter procedure YOLANDA THACKER HUTTIG Work Phone: [facility] Work Phone: Start: 01-16-2023 End: 01-16-2023 Patient encounter procedure YOLANDA HINES Work Phone: [facility] Work Phone: Start: 11-24-2022 End: 11-24-2022 Patient encounter procedure YOLANDA HINES Work Phone: [facility] Work Phone: Start: 10-29-2022 ambulatory Ms. Kirstie Hines Facility:[id number] Start: 10-29-2022 Office outpatient vi sit 25 minutes Kirstie Hines Work Phone: [id number] Work Phone: Start: 09-21-2022 Refill Essence Herring LPN [facility] Comment on above: Hypothyroidism (acqu ired); Depression with anxiety Start: 07-27-2022 End: 07-27-2022 Office outpatient visit 25 minutes Isidro Wakefield MD Work Phone: [facility] Comment on above: Encounter for immuni zation (Primary Dx); Malignant neoplasm of base of tongue (HCC); Hypothyroidism (acquired); Abnormal mammogram; Irritable bowel syndrome with constipation; Depression with anxiety Start: 06-26-2022 Refill Essence Herring LPN [facility] Comment on above: Depression with anxi ety Start: 06-06-2022 AUDIT Kirstie morrison Work Phone: -[facility] [facility] Work Phone: Start: 05-09-2022 Office outpatient vi sit 15 minutes Kirstie Hines Work Phone: [facility] Work Phone: Start: 04-03-2022 Refill Gela [facility] Start: 02-28-2022 End: 02-28-2022 Clinical Support Essence Herring LPN [facility] Comment on above: Need for vaccination (Primary Dx) Start: 01-30-2022 End: 01-30-2022 Office outpatient visit 40 minutes Isidro Wakefield MD Work Phone: [facility] Comment on above: Hypothyroidism (acqu ired) (Primary Dx); Secondary and unspecified malignant neoplasm of lymph node, unspecified (HCC); Depression with anxiety; Bruising; Obesity (BMI 30-39.9); Abnormal finding of blood chemistry, unspecified; Irritable bowel syndrome, unspecified type; Malignant neoplasm of base of tongue (HCC) Start: 12-22-2021 AUDIT Kirstie morrison Work Phone: [facility] Work Phone: Start: 12-12-2021 End: 12-12-2021 Patient encounter procedure FLEX Luevano NP Work Phone: [facility] Start: 12-04-2021 AUDIT Kirstie morrison Work Phone: [facility] Work Phone: Start: 11-30-2021 End: 11-30-[address] Gloria Goode Work Phone: [facility] Start: 11-28-2021 End: 11-28-[address] Gloria Goode Work Phone: [facility] Start: 10-30-2021 Office outpatient vi sit 15 minutes Kirstie Hines Work Phone: [id number] Work Phone: Start: 10-27-2021 End: 10-27-2021 Emergency department patient visit [place] [id number] Start: 10-19-2021 Office outpatient ne w 30 minutes Kirstie Hines Work Phone: [facility] [facility] Work Phone: Start: 10-02-2021 End: 10-02-2021 Phys/qhp telephone evaluation 5-10 min Kirstie Hines CNP Work Phone: [facility] Comment on above: Hypothyroidism (acqu ired); Depression with anxiety Start: 09-14-2021 Refill Kirstie montesinos [employer] Work Phone: [facility] Physicians Comment on above: Depression with anxi ety Start: 08-21-2021 End: 08-21-2021 Office outpatient visit 25 minutes Kirstie Hines CNP Work Phone: [facility] Comment on above: Chronic constipation (Primary Dx); Depression with anxiety Start: 08-09-2021 End: 08-09-[address] Gloria Goode Work Phone: [facility] Start: 06-14-2021 Refill Kirstie montesinos RECORDS SUPERVISOR Work Phone: [facility] Start: 05-25-2021 Documentation procedure Essence barajas AMMONIA OPERATOR [facility] Start: 05-25-2021 End: 05-25-2021 Office outpatient visit 15 minutes Kirstie Hines RECORDS SUPERVISOR Work Phone: [facility] Comment on above: COVID-19 (Primary Dx ) Start: 05-23-2021 End: 05-23-2021 Emergency department patient visit FELISA [facility]ARDW [facility] Start: 05-23-2021 End: 05-23-2021 Phys/qhp telephone evaluation 5-10 min Kirstie Hines RECORDS SUPERVISOR Work Phone: [facility] Comment on above: Suspected COVID-19 v irus infection Start: 05-01-2021 Office outpatient vi sit 15 minutes Kirstie Hines Work Phone: [facility]lx[facility]djng[facility] [place] Work Phone: Start: 05-01-2021 Patient encounter procedure Kirstie Hines Work Phone: II-Oyhavfowmmzsul-Rqc [place] Work Phone: Start: 04-06-2021 Refill Kenna Ochoa MA [facility] Comment on above: Irritable bowel synd deanne, unspecified type Start: 01-19-2021 Office outpatient vi sit 15 minutes Kirstie Hines Work Phone: [facility] [place] [address] Work Phone: Start: 01-19-2021 Patient encounter procedure Kirstie Hines Work Phone: [facility] Work Phone: Start: 11-08-2020 End: 11-08-2020 Refill Kirstie Hines RECORDS SUPERVISOR Work Phone: [facility] Comment on above: Depression with anxi ety Start: 09-14-2020 End: 09-14-2020 Phys/qhp telephone evaluation 5-10 min Kirstie Hines RECORDS SUPERVISOR Work Phone: [facility] Comment on above: Congestion of nasal sinus (Primary Dx) Start: 09-13-2020 End: 09-13-2020 Refill Kirstie Hines RECORDS SUPERVISOR Work Phone: [facility] Comment on above: Hypothyroidism (acqu ired) Start: 09-05-2020 Patient encounter status Braulio Hines RECORDS SUPERVISOR Work Phone: [facility] Start: 09-05-2020 End: 09-05-2020 Office outpatient visit 25 minutes Kirstie Hines Work Phone: [facility] Comment on above: Chronic constipation (Primary Dx); Encounter for screening mammogram for malignant neoplasm of breast; Wellness examination; Vitamin D deficiency; Hypothyroidism (acquired); Chronic neck pain Start: 07-04-2020 End: 07-04-2020 Patient encounter procedure KIRSTIE HINES [facility] Start: 07-01-2020 End: 07-01-2020 Orders Only Kirstie Summers BIOeCON Phone: [facility] Comment on above: Flu-like symptoms (P rimary Dx) Start: 06-24-2020 End: 06-24-2020 Patient encounter procedure Kirstie AvAdelaide [employer] Phone: [facility] Comment on above: Acute right-sided lo w back pain with sciatica, sciatica laterality unspecified (Primary Dx) Start: 06-22-2020 End: 06-22-2020 Patient encounter procedure Kirstie AvAdelaide BIOeCON Phone: [facility] Comment on above: Back pain, unspecifi ed back location, unspecified back pain laterality, unspecified chronicity (Primary Dx) Start: 06-17-2020 End: 06-17-2020 Patient encounter procedure Kirstie AvAdelaide BIOeCON Phone: [facility] Comment on above: Back pain, unspecifi ed back location, unspecified back pain laterality, unspecified chronicity (Primary Dx) Start: 06-13-2020 End: 06-13-2020 Patient encounter procedure Kirstie Summers BIOeCON Phone: [facility] Comment on above: Back pain, unspecifi ed back location, unspecified back pain laterality, unspecified chronicity Start: 02-05-2020 End: 02-05-2020 Office outpatient visit 25 minutes Kirstie Summers BIOeCON Phone: [facility] Comment on above: Need for vaccination (Primary Dx); Hypothyroidism (acquired); Depression with anxiety; Insomnia, unspecified type Start: 01-26-2020 End: 01-26-2020 Office outpatient visit 25 minutes Kirstie AvAdelaide BIOeCON Phone: [facility] Comment on above: Acute right-sided lo w back pain without sciatica (Primary Dx); Hypothyroidism (acquired); Malignant neoplasm of base of tongue (HCC) Start: 10-31-2019 End: 10-31-2019 Emergency department patient visit MARIBELL WHITTEN Facility:[facility] Start: 06-08-2019 End: 06-08-2019 Office outpatient visit 25 minutes [email or web address].es Phone: [facility] Comment on above: Fatigue, unspecified type (Primary Dx); Hypothyroidism (acquired); Need for influenza vaccination; Depression with anxiety Start: 02-05-2019 End: 02-05-2019 Office outpatient visit 25 minutes [employer]melett.es Phone: [facility] Comment on above: Depression with anxi ety (Primary Dx); Hypothyroidism (acquired); Fatigue, unspecified type; Malignant neoplasm of base of tongue (HCC) Start: 11-05-2018 End: 11-09-2018 Office outpatient visit 15 minutes [employer]lett[employer]es Phone: [facility] Comment on above: Hypothyroidism (acqu ired); Scalp pain Start: 10-29-2018 End: 10-29-2018 Office outpatient visit 25 minutes [employer]es Phone: [facility] Comment on above: Scalp pain (Primary Dx); Depression with anxiety; Hypothyroidism (acquired); Screening for breast cancer Start: 05-15-2018 End: 05-15-2018 Office outpatient visit 15 minutes Felisa Abbott Work Phone: [facility] Comment on above: Hypothyroidism (acqu ired) (Primary Dx); Depression with anxiety Start: 03-18-2018 End: 03-18-2018 Office outpatient visit 25 minutes Felisa Abbott Work Phone: [facility] Comment on above: Hypothyroidism (acqu ired) (Primary Dx); Cold intolerance; Depression with anxiety Start: 09-18-2017 Ambulatory Felisa Abbott Facility:[facility] Start: 09-18-2017 End: 09-18-2017 Ambulatory Felisa Abbott Work Phone: [facility] Start: 09-18-2017 End: 09-18-2017 Office/outpatient visit, new, level 4 Felisa Abbott Work Phone: [facility] Patient encounter status Shelley Ley [employer] Work Phone: DE-Aohqlvbkljilja-Heg ledy Work Phone: Procedures Date Procedure Procedure Detail Performing Clinician Start: 02-04-2024 Mammography Isidro sands MD Work Phone: Start: 06-03-2023 ECG 12-LEAD spring Start: 06-03-2023 Ecg routine ecg w/le ast 12 lds trcg only w/o i&r Kendal Simon SENIOR SALES ASSOCIATE-RECORDS SUPERVISOR Work Phone: Start: 06-02-2023 CBC W Auto Different ial panel - Blood spring Start: 06-02-2023 Comprehensive metabo lic 2000 panel - Serum or Plasma spring Start: 06-02-2023 Magnesium [Mass/volu me] in Serum or Plasma spring Start: 06-02-2023 TROPONIN SERIES- (IN ITIAL, 1 HR) spring Start: 06-02-2023 RSV PCR KIRSTIEspring Start: 06-02-2023 SARS-COV-2 AND INFLU BECKY A/B PCR KIRSTIEspring Start: 06-02-2023 XR CHEST 2 VIEWS ZI spring Start: 06-02-2023 End: 06-02-2023 Comprehensive metabolic panel Kendal Simon SENIOR SALES ASSOCIATE-RECORDS SUPERVISOR Work Phone: Start: 06-02-2023 Troponin I.cardiac p velma - Serum or Plasma by High sensitivity method Kendal Simon SENIOR SALES ASSOCIATE-RECORDS SUPERVISOR Work Phone: Start: 06-02-2023 Influenza virus A an d B and SARS-CoV-2 (COVID-19) identified in Respiratory specimen by YARIEL with probe detection Kendal Simon SENIOR SALES ASSOCIATE-RECORDS SUPERVISOR Work Phone: Start: 06-02-2023 Respiratory syncytia l virus RNA [Presence] in Respiratory specimen by YARIEL with probe detection Kendal Simon SENIOR SALES ASSOCIATE-RECORDS SUPERVISOR Work Phone: Start: 06-02-2023 Radiologic exam ches t 2 views Kendal Simon SENIOR SALES ASSOCIATE-RECORDS SUPERVISOR Work Phone: Start: 01-29-2023 CT of chest ALUMINUM SHINGLE ROOFERBASIA [facility] SPRING Work Phone: Start: 01-29-2023 End: 01-29-2023 Screening mammography ALUMINUM SHINGLE ROOFER KIRSTIE MADSEN ING Work Phone: Start: 05-31-2022 Mammography Isidro sands MD Work Phone: Start: 12-12-2021 MRI of bilateral etienne asts with contrast COMMODITY MANAGER-C Bette Luevano COMMODITY MANAGER Work Phone: Start: 11-30-2021 End: 11-30-[address] Gloria Goode Work Phone: Start: 11-30-[address] Gloria Goode Work Phone: Start: 11-28-2021 Screening mammography Jf Goode Work Phone: Start: 11-28-[address] Colin Goode Work Phone: Start: 11-03-2020 Mammography Kirstie Lentner RECORDS SUPERVISOR Work Phone: Start: 01-26-2020 Urinalysis macro (di pstick) panel - Urine Kirstie AvAdelaide Lentner Work Phone: Start: 11-03-2019 Mammography [facility] Start: 06-08-2019 Adult depression scr eening assessment Kirstie [place] Start: 02-05-2019 Adult depression scr eening assessment Kirstie [place] Start: 10-31-2018 Mammography [facility] Start: 10-28-2018 CT SCAN Provider N ot In System Start: 10-14-2018 Colonoscopy Kirstie [place] Start: 09-27-2017 Mammography Kirstie [facility] Gallbladder Surgery Adrianne a Av Lentner Work Phone: Hysterectomy Kirstie Ley Spr ing Work Phone: Surgical procedure Kirstie Ley Lentner Work Phone: Plan of Treatment Date Care Activity Detail Author Start: 10-14-2028 Screening for malignant neoplasm of colon [facility] Start: 02-09-2025 End: 02-09-2025 Patient encounter procedure 02/09/2025 2:00 PM EDT Office Visit [facility] [address] [place] [address] Isidro Wakefield MD [address] [address] [facility] Start: 02-05-2025 Depression screening using PHQ-9 (Patient Health Questionnaire 9) score Depression Screening/Follow-Up (PHQ-2/9) [facility] Start: 02-05-2025 History and physical examination, annual for health maintenance Wellness Visit [facility] Start: 02-03-2025 Screening for malignant neoplasm of breast Mammogram [facility] Start: 09-24-2024 Tetanus vaccination [facility] Start: 03-12-2024 End: 03-12-2024 Clinical Support 03/12/2024 1:30 PM EDT Clinical Support [facility] [address] [place] [phone] [facility] Start: 02-07-2024 End: 02-07-2024 Patient encounter procedure 02/07/2024 1:00 PM EDT Office Visit [facility] [address] [place] [address] [place] [address] [place] [phone] [facility] Start: 02-06-2024 End: 02-06-2024 Patient encounter procedure 02/06/2024 2:00 PM EDT Office Visit [facility] [address] [place] [address] Isidro Wakefield MD [address] [place] [id number] [facility] Start: 01-30-2024 Screening for malignant neoplasm of breast Mammogram [facility] Start: 01-30-2024 Screening for malignant neoplasm of lung Low-dose CT Lung Cancer Screen [facility] Start: 01-26-2024 COVID-19 Vaccine ( season) COVID-19 Vaccine () [facility] Start: 01-26-2024 COVID-19 Vaccine () COVID-19 Vaccine () [facility] Start: 01-26-2024 Influenza vaccination Influenza Vaccine (#1) [facility] Start: 12-05-2023 End: 12-05-2023 Telemedicine consultation with patient 12/05/2023 1:00 PM EDT Telemedicine [facility] [address] [place] [address] Isidro Wakefield MD [address] [address] [facility] Start: 07-28-2023 History and physical examination, annual for health maintenance Wellness Visit [facility] Start: 05-31-2023 Screening for malignant neoplasm of breast Mammogram [facility] Start: 03-01-2023 End: 03-01-2023 Clinical Support 03/01/2023 1:30 PM EDT Clinical Support [facility] [address] [place] [address] [facility] Start: 01-31-2023 End: 01-31-2023 Patient encounter procedure [facility] Start: 01-25-2023 COVID-19 Vaccine () COVID-19 Vaccine () [facility] Start: 01-25-2023 Influenza vaccination [facility] Start: 11-30-2022 Screening for malignant neoplasm of breast Mammogram [facility] Start: 11-28-2022 Screening for malignant neoplasm of lung Low-dose CT Lung Cancer Screen [facility] Start: 10-29-2022 FUV, Provider: John Mattson, Status: Pen, Time: 1:45 PM FUV, Provider: John Mattson, Status: Pen, Time: 1:45 PM ER-Ksvvkuhcukslry-Remyv hussain Work Phone: Start: 07-27-2022 End: 07-27-2022 Patient encounter procedure 07/27/2022 Office Visit Primary Care Isidro Wakefield MD [address] [address] [facility] Start: 05-02-2022 FUV, Provider: John Mattson, Status: Pen, Time: 1:30 PM FUV, Provider: John Mattson, Status: Pen, Time: 1:30 PM BC-Iffoavwvnsovyq-Pdmtr burg Work Phone: Start: 03-09-2022 COVID-19 Vaccine (#1) COVID-19 Vaccine (#1) [facility] Comment on above: Postponed from 04/20/1971 (Patient Refus ed) Start: 03-09-2022 COVID-19 Vaccine (1) COVID-19 Vaccine (1) [facility] Comment on above: Postponed from 1982 (Patient Refus ed) Start: 03-09-2022 History and physical examination, annual for health maintenance Wellness Visit [facility] Start: 03-09-2022 Pneumococcal Vaccine: Ped or At-Risk (2 - PPSV23 if available, else PCV20) Pneumococcal Vaccine: Ped or At-Risk (2 - PPSV23 if available, else PCV20) [facility] Start: 03-09-2022 Pneumococcal Vaccine: Ped or At-Risk (2 - PPSV23 or PCV20) Pneumococcal Vaccine: Ped or At-Risk (2 - PPSV23 or PCV20) [facility] Start: 02-28-2022 End: 02-28-2022 Clinical Support 02/28/2022 Clinical Support Primary Care [facility] Start: 01-30-2022 End: 01-30-2022 Patient encounter procedure 01/30/2022 Office Visit Primary Care Isidro Wakefield MD [address] [address] [facility] Start: 01-25-2022 Influenza vaccination Sequential Influenza Vaccine (#1) [facility] Start: 11-17-2021 FUV, Provider: Dennis Dowling, Status: Pen, Time: 2:30 PM FUV, Provider: Dennis Dowling, Status: Pen, Time: 2:30 PM [facility] [address] Work Phone: Start: 11-17-2021 Patient encounter procedure [facility] Start: 11-07-2021 DTaP/Tdap/Td Vaccines (2 - Td or Tdap) DTaP/Tdap/Td Vaccines (2 - Td or Tdap) [facility] Start: 11-03-2021 Screening for malignant neoplasm of breast Mammogram [facility] Start: 11-03-2021 Screening mammography Mammogram [facility] Start: 10-30-2021 FUV, Provider: John Mattson, Status: Pen, Time: 2:15 PM FUV, Provider: John Mattson, Status: Nas, Time: 2:15 PM UN-Cbfigwhzdnuagg-Impcy mariana Work Phone: Start: 10-30-2021 Patient encounter procedure [facility] Start: 10-02-2021 End: 10-02-2021 Telemedicine consultation with patient 10/02/2021 Telemedicine Primary Care Kirstie Hines, RECORDS SUPERVISOR [address] [place] [address] [facility] Start: 09-06-2021 End: 09-06-2021 Patient encounter procedure 09/06/2021 Office Visit Primary Care Kirstie Hines RECORDS SUPERVISOR [address] [address] [facility] Start: 05-04-2021 Pneumococcal Vaccine: Ped or At-Risk (2 of 4 - PPSV23) Pneumococcal Vaccine: Ped or At-Risk (2 of 4 - PPSV23) [facility] Start: 04-24-2021 FUV, Provider: John Mattson, Status: Pen, Time: 2:15 PM FUV, Provider: John Mattson, Status: Pen, Time: 2:15 PM SE-Nqppwbkacxzrld-Gpynj mariana Work Phone: Start: 02-07-2021 End: 02-07-2021 Office Visit 02/07/2021 Office Visit Primary Care [place], Kirstie Summers, RECORDS SUPERVISOR [address] [place] [id number] [phone] [facility] Start: 01-25-2021 End: 09-05-2021 Complete blood count with white cell differential, manual CBC and Differential Lab Routine Wellness examination Expected: 01/25/2021 (Approximate), Expires: 09/05/2021 [facility] Comment on above: Expected: 01/25/2021 (Approximate), Expi res: 09/05/2021 Start: 01-25-2021 End: 09-05-2021 Comprehensive metabolic 2000 panel Comprehensive Metabolic Panel Lab Routine Wellness examination Expected: 01/25/2021 (Approximate), Expires: 09/05/2021 [facility] Comment on above: Expected: 01/25/2021 (Approximate), Expi res: 09/05/2021 Start: 01-25-2021 End: 09-05-2021 Lipid 1996 panel Lipid Panel Lab Routine Wellness examination Hypothyroidism (acquired) Expected: 01/25/2021 (Approximate), Expires: 09/05/2021 [facility] Comment on above: Expected: 01/25/2021 (Approximate), Expi res: 09/05/2021 Start: 01-25-2021 End: 09-05-2021 TSH Qn TSH with Reflex Free T4 Lab Routine Wellness examination Hypothyroidism (acquired) Expected: 01/25/2021 (Approximate), Expires: 09/05/2021 [facility] Comment on above: Expected: 01/25/2021 (Approximate), Expi res: 09/05/2021 Start: 01-25-2021 End: 09-05-2021 Vitamin D, 25-hydroxy measurement Vitamin D, Total, 25-OH Lab Routine Vitamin D deficiency Expected: 01/25/2021 (Approximate), Expires: 09/05/2021 [facility] Comment on above: Expected: 01/25/2021 (Approximate), Expi res: 09/05/2021 Start: 01-02-2021 Administration of herpes zoster vaccine Zoster Vaccines (2 of 2) [facility] Start: 11-02-2020 Screening mammography Mammogram [facility] Start: 2020 Administration of herpes zoster vaccine Zoster Vaccines (1 of 2) [facility] Start: 2020 Screening for malignant neoplasm of colon [facility] Start: 2020 Zoster Vaccines (1 of 2) Zoster Vaccines (1 of 2) [facility] Start: 09-05-2020 End: 09-05-2020 Office Visit 09/05/2020 Office Visit Primary Care Kirstie Hines, RICCARDO [address] [place] [address] [facility] Start: 07-12-2020 End: 07-12-2020 Treatment 07/12/2020 Treatment [facility] Kirstie Hines, RICCARDO [address] [place] [address] Jorge Connolly, PT [facility] Start: 07-07-2020 End: 07-07-2020 Treatment [facility]2020 [facility] [address] [place] [address] Isaac Marte, DIRECTOR BLOOD BANK [facility] Start: 07-05-2020 End: 07-05-2020 Treatment 07/05/2020 [facility] [address] [place] [place] [id number] Jorge Connolly, PT [facility] Start: 07-05-2020 End: 07-05-2020 Treatment 07/05/2020 [facility] [address] [place] [address] Jorge Connolly, PT [facility] Start: 06-30-2020 End: 06-30-2020 Treatment 06/30/2020 [facility] [address] [place] [address] Jorge Connolly, PT [facility] Start: 06-28-2020 End: 06-28-2020 Treatment 06/28/2020 Treatment [facility] Kirstie Hines CNP [address] [place] [address] Demetria Otoole [facility] Start: 06-24-2020 End: 06-24-2020 Treatment 06/24/2020 Treatment [facility] Kirstie Hines CNP [address] [facility] [place] [address] Demetria Otoole [facility] Start: 06-22-2020 End: 06-22-2020 Treatment 06/22/2020 Treatment [facility] Kirstie Hines CNP [address] [facility] [place] [address] Jorge Connolly, PT [facility] Start: 06-17-2020 End: 06-17-2020 Treatment 06/17/2020 Treatment [facility] Kirstie Hines CNP [address] [facility] [place] [address] [facility] Start: 06-08-2020 Depression screening using PHQ-9 (Patient Health Questionnaire 9) score DEPRESSION SCREENING (PHQ9) [facility] Start: 06-06-2020 End: 06-06-2020 Office Visit 06/06/2020 Office Visit Primary Care Kirstie Hines CNP [address] [place] [address] [facility] Start: 02-06-2020 Depression screening using PHQ-9 (Patient Health Questionnaire 9) score DEPRESSION SCREENING (PHQ9) [facility] Start: 02-05-2020 End: 02-05-2020 Office Visit 02/05/2020 Office Visit Primary Care Kirstie Hines CNP [address] [facility] [place] [address] [facility] Start: 01-26-2020 Influenza vaccination given Sequential Influenza Vaccine (#1) [facility] Start: 11-01-2019 Protein mass conc Mammogram [facility] Start: 11-01-2019 Screening mammography Mammogram [facility] Start: 10-08-2019 End: 10-08-2019 Office Visit 10/08/2019 Office Visit Primary Care Kirstie Hines CNP [address] [place] [phone] [facility] Start: 06-08-2019 End: 06-08-2019 Office Visit 06/08/2019 Office Visit Primary Care Kirstie Hines CNP [address] [place] [address] [facility] Start: 02-05-2019 End: 02-05-2019 Office Visit 02/05/2019 Office Visit Primary Care Kirstie Hines CNP [address] [place] [address] [facility] Start: 11-13-2018 End: 11-13-2018 Ambulatory 11/13/2018 Office Visit Primary Care Felisa Abbott MD [address] [place] [address] [facility] Start: 09-27-2018 Protein mass conc Mammogram [facility] Start: 09-16-2018 End: 03-18-2019 Thyrotropin Qn TSH with Reflex Free T4 Routine Hypothyroidism (acquired) Expected: 09/16/2018, Expires: 03/18/2019 [facility] Comment on above: Expected: 09/16/2018, Expires: 9 Start: 11-25-2017 Screening for malignant neoplasm of cervix PAP SMEAR [facility] Start: 10-04-2017 PEG Tube Placement PEG Tube Placement Date: 04-Oct-2017 Comments: Provider name: Pierre ReneeCreated By: [facility] Comment on above: Provider name: VíctorPierre ated By: [facility] Start: 10-03-2017 End: 10-03-2017 Ambulatory [facility] Start: 2000 Screening for malignant neoplasm of cervix HPV/Cotest [facility] Start: 1992 DTaP/Tdap/Td Vaccines (1 - Tdap) DTaP/Tdap/Td Vaccines (1 - Tdap) [facility] Start: 10-19-1991 Screening for malignant neoplasm of cervix [facility] Start: 1989 Hepatitis B Vaccines (1 of 3 - 19+ 3-dose series) Hepatitis B Vaccines (1 of 3 - 19+ 3-dose series) [facility] Start: 1988 Hepatitis C screening Hepatitis C Screening [facility] Start: 1986 COVID-19 Vaccine (1) COVID-19 Vaccine (1) [facility] Start: 1985 HIV screening HIV Screening [facility] Start: 1982 COVID-19 Vaccine (1) COVID-19 Vaccine (1) [facility] Start: 1976 Pneumococcal Vaccine: Ped or At-Risk (1 of 4 - PCV13) Pneumococcal Vaccine: Ped or At-Risk (1 of 4 - PCV13) [facility] Start: 10-19-1975 COVID-19 Vaccine (#1) COVID-19 Vaccine (#1) [facility] Start: 1973 History and physical examination, annual for health maintenance Wellness Visit [facility] Start: 10-19-1971 MMR Vaccines (1 of 1 - Standard series) MMR Vaccines (1 of 1 - Standard series) [facility] Start: 04-20-1971 COVID-19 Vaccine (#1) COVID-19 Vaccine (#1) [facility] Start: 1970 Hepatitis B Vaccines (1 of 3 - 3-dose series) Hepatitis B Vaccines (1 of 3 - 3-dose series) [facility] Start: 1970 HIV screening HIV Screening [facility] Start: 1970 Lipid panel Lipid Panel [facility] Start: 1970 Screening for malignant neoplasm of cervix PAP SMEAR [facility] Start: 1970 Screening for malignant neoplasm of colon [facility] Start: 1970 Screening for malignant neoplasm of lung Low-dose CT Lung Cancer Screen [facility] Start: 1970 Thyroid stimulating hormone measurement TSH Level [facility] Start: 1970 Yearly Adult Physical Yearly Adult Physical [facility] CBC W Auto Different ial panel - Blood [facility] Work Phone: CBC W Auto Different ial panel - Blood [facility] End: 01-31-2024 Complete blood count with white cell differential, manual CBC and Differential Lab Routine Malignant neoplasm of base of tongue (HCC) 1 Occurrences starting 01/31/2023 until 01/31/2024 [facility] Comment on above: 1 Occurrences starting 01/31/2023 until 01/31/2024 Complete blood count with white cell differential, manual CBC and Differential Lab Routine Malignant neoplasm of base of tongue (HCC) 01/31/2023 1:36 PM EDT [facility] End: 02-01-2024 Comprehensive metabolic 2000 panel - Serum or Plasma Comprehensive Metabolic Panel Lab Routine Hypothyroidism (acquired) 1 Occurrences starting 01/31/2023 until 02/01/2024 [facility] Comment on above: 1 Occurrences starting 01/31/2023 until 02/01/2024 Comprehensive metabo lic 2000 panel - Serum or Plasma Comprehensive Metabolic Panel Lab Routine Hypothyroidism (acquired) 01/31/2023 1:36 PM EDT [facility] End: 09-18-2018 Comprehensive metabolic panel [AGGREGATE] Comprehensive Metabolic Panel Routine Mass of right side of neck 1 Occurrences starting 09/18/2017 until 09/18/2018 [facility] End: 07-01-2021 Covid-19/Influenza Order Algorithm : Dual Swab COVID/Flu Lab Tests (OP in UTM/Dry) Covid-19/Influenza Order Algorithm : Dual Swab COVID/Flu Lab Tests (OP in UTM/Dry) Microbiology Routine Flu-like symptoms 1 Occurrences starting 07/01/2020 until 07/01/2021 [facility] Comment on above: 1 Occurrences starting 07/01/2020 until 07/01/2021 End: 09-18-2018 CT Abdomen Pelvis With Contrast CT Abdomen Pelvis With Contrast Routine Mass of right side of neck 1 Occurrences starting 09/18/2017 until 09/18/2018 [facility] End: 09-18-2018 CT Chest Thorax With Contrast CT Chest Thorax With Contrast Routine Mass of right side of neck 1 Occurrences starting 09/18/2017 until 09/18/2018 [facility] End: 06-02-2023 ECG 12 lead [facility] Service [facility] Work Phone: Comment on above: Once for 1 Occurrences starting 06/02/19 until 06/02/2023 As needed until disc ontinued starting 06/02/2023 End: 01-30-2023 Hemoglobin A1c/Hemoglobin.total in Blood Hemoglobin A1c Lab Routine Obesity (BMI 30-39.9) Abnormal finding of blood chemistry, unspecified 1 Occurrences starting 01/30/2022 until 01/30/2023 [facility] Work Phone: Comment on above: 1 Occurrences starting 01/30/2022 until 01/30/2023 Hemoglobin A1c/Hemoglobin.total in Blood Hemoglobin A1c Lab Routine Obesity (BMI 30-39.9) Abnormal finding of blood chemistry, unspecified 01/30/2022 3:19 PM EDT [facility] End: 02-01-2024 Lipid 1996 panel - Serum or Plasma Lipid Panel Lab Routine Healthcare maintenance 1 Occurrences starting 01/31/2023 until 02/01/2024 [facility] Comment on above: 1 Occurrences starting 01/31/2023 until 02/01/2024 Lipid 1996 panel - Serum or Plasma Lipid Panel Lab Routine Healthcare maintenance 01/31/2023 1:36 PM EDT [facility] End: 11-18-2018 MG Breast - bilateral screening Mammography Screening Bilateral Routine Mass of right side of neck 1 Occurrences starting 09/18/2017 until 11/18/2018 [facility] End: 12-29-2019 MG Breast - bilateral screening Mammography Screening Bilateral Imaging Routine Screening for breast cancer 1 Occurrences starting 10/29/2018 until 12/29/2019 [facility] Comment on above: 1 Occurrences starting 10/29/2018 until 12/29/2019 End: 11-05-2021 MG Breast - bilateral screening Mammography Screening [facility] Bilateral Imaging Routine Encounter for screening mammogram for malignant neoplasm of breast 1 Occurrences starting 09/05/2020 until 11/05/2021 [facility] Comment on above: 1 Occurrences starting 09/05/2020 until 11/05/2021 End: 06-02-2023 Pulse oximetry, continuous Pulse oximetry, continuous Respiratory Care STAT Continuous until discontinued starting 06/02/2023 [facility] Work Phone: Comment on above: Continuous until discontinued starting 0 06/02/[address] hormone measurement [facility] End: 02-01-2024 Thyrotropin [Units/volume] in Serum or Plasma TSH with Reflex Free T4 Lab Routine Hypothyroidism (acquired) 1 Occurrences starting 01/31/2023 until 02/01/2024 [facility] Work Phone: Comment on above: 1 Occurrences starting 01/31/2023 until 02/01/2024 Thyrotropin [Units/volume] in Serum or Plasma TSH with Reflex Free T4 Lab Routine Hypothyroidism (acquired) 01/31/2023 1:36 PM EDT [facility] End: 02-06-2025 Thyrotropin [Units/volume] in Serum or Plasma TSH with Reflex Free T4 Lab Routine Hypothyroidism, unspecified type 1 Occurrences starting 02/07/2024 until 02/06/2025 [facility] Work Phone: Comment on above: 1 Occurrences starting 02/07/2024 until 02/06/2025 End: 10-29-2019 Thyrotropin Qn TSH with Reflex Free T4 Lab Routine Hypothyroidism (acquired) 1 Occurrences starting 10/29/2018 until 10/29/2019 [facility] Comment on above: 1 Occurrences starting 10/29/2018 until 10/29/2019 End: 09-18-2018 TSH with Reflex Free T4 TSH with Reflex Free T4 Routine Mass of right side of neck 1 Occurrences starting 09/18/2017 until 09/18/2018 [facility] Immunizations Immunization Date Immunization Notes Care Provider [facility] 03-12-2024 Seasonal, trivalent, recombinant, injectable influenza vaccine, preservative free Isidro Wakefield MD Work Phone: [facility] 03-01-2023 influenza, injectabl e, quadrivalent, preservative free Essence Herring LPN [facility] 03-01-2023 flu vacc [id number] 6mos up,PF, (FLUZONE QUAD/FLULAVAL QUAD/FLUARIX QUAD) 60 mcg (15 mcg x 4)/0.5 mL Syrg syringe Essence Herring LPN [facility] 03-01-2023 influenza virus vaccine, unspecified formulation Kirstie HERNDON Work Phone: [facility] Work Phone: 07-27-2022 Pneumococcal Conjuga te 20-Valent (Prevnar 20) Isidro Wakefield MD Work Phone: [facility] 07-27-2022 pneumococcal conj. 20-valent (PREVNAR 20) 0.5 mL vaccine Isidro Wakefield MD Work Phone: [facility] 02-28-2022 Seasonal, quadrivalent, recombinant, injectable influenza vaccine, preservative free Essence Herring LPN [facility] 02-28-2022 flu vac qv 2021,18yr up,rcm-PF (FLUBLOK QUAD) syringe Essence Herring [facility] Work Phone: 04-06-2021 zoster vaccine recombinant [facility] Work Phone: [facility] [place] Work Phone: 03-09-2021 pneumococcal conjuga te vaccine, 13 valent Kenna Ochoa [facility] 03-09-2021 Seasonal, quadrivalent, recombinant, injectable influenza vaccine, preservative free Kenna Ochoa [facility] 03-09-2021 flu vac qv 2020,18yr up,rc,PF, (FLUBLOK QUAD) syringe Kenna Ochoa [facility] 11-07-2020 zoster vaccine recombinant [facility] Work Phone: [facility] [place] Work Phone: 02-05-2020 Seasonal, quadrivalent, recombinant, injectable influenza vaccine, preservative free [facility] 02-05-2020 flu vac qv 2020,18yr up,rc,PF, (FLUBLOK QUAD) syringe [facility] 06-08-2019 Seasonal, quadrivalent, recombinant, injectable influenza vaccine, preservative free [facility] 06-08-2019 flu vac qv 2019,18yr up,rc,PF, (FLUBLOK QUAD) syringe [facility] 11-08-2011 tetanus toxoid, reduced diphtheria toxoid, and acellular pertussis vaccine, adsorbed [facility] Payers Date Payer Category Payer Self-pay [id number] 2023 [facility] ANTHEM BL UE/PREF/HMO/PPO [id number] 2023 Unknown [id number] 2021 Medicaid [id number] 2021 Medicaid [id number] 2020 Medicaid MEDICAID [facility] [id number] 2020-Present [id number] 2020 Medicare [id number]. [id number] 2020 Medicare [id number] 2020 Medicare [id number]. [id number] 2019 Unknown 2018 Unknown MMO MED MUTUAL S UPERMED PPO xxxxxxxxxxxx 2018-Present [id number] 2018 Unknown MMO MED MUTUAL S UPERMED PPO [id number] 2018-Present [id number] 2017 Medicaid [employer] MEDICAID NOGAL ADVANTAGE MEDICAID xxxxxxxxxxx 2017-Present [id number] 1970 Unknown [id number] 2.16.840.1.466995.3.579.2. 196 1970 Unknown [id number] 2.16.840.1.404548.3.579.2. 900 1970 Unknown [id number] 2.16.840.1.347367.3.579.2. 902 1970 Unknown [id number] 2.16840.1.887354.3.579.2. 356 1970 Unknown [id number] 2.16.840.1.002781.3.579.2. 903 1970 Unknown [id number] 2.16.840.1.486425.3.579.2. 1243 1970 Unknown [id number] 2.16.840.1.222268.3.579.2. 1243 1970 Unknown [id number] 2.16.840.1.754995.3.579.2. 903 1970 Unknown [id number] 2.16.840.1.632333.3.579.2. 903 1970 Unknown [id number] 2.16.840.1.890066.3.579.2. 903 1970 Unknown [id number] 2.16.840.1.484397.3.579.2. 903 1970 Unknown [id number] 2.16.840.1.168012.3.579.2. 1244 Medicare [id number] Unknown [id number] Unknown [id number] Unknown [id number] Unknown [id number] 2.16.840.1.456866.3.579.2. 462 Unknown [id number] 2.16840.1.142136.3.579.2. 462 Unknown [id number] 2.16.840.1.009033.3.579.2. 462 Unknown [id number] 2.16.840.1.736147.3.579.2. 462 Social History Date Type Detail Facility Start: 09-18-2017 Tobacco smoking status [facility] Current every day smoker [facility] Start: 09-18-2017 End: 02-05-2019 Cigarettes smoked current (pack per day) - Reported [facility] Start: 1970 Sex Assigned At Not on file [facility] Start: 05-18-2018 End: 02-06-2024 Tobacco smoking status [facility] Former smoker [facility] Start: 09-13-2017 Alcohol Comment Whiskey, occasionally [facility] Start: 06-08-2019 End: 01-13-2024 Alcohol intake Current drinker of alcohol (finding) [facility] Start: 02-05-2019 History SDOH Social Connections Get Together 2 [facility] Start: 02-05-2019 History SDOH Food Worry 1 [facility] Start: 01-26-2020 End: 02-06-2024 Tobacco use and exposure Never used [facility] Start: 08-04-2021 End: 01-13-2024 Exposure to SARS-CoV-2 (event) Not sure [facility] Exposure to SARS-CoV -2 (event) Unable to assess [facility] Start: 07-17-2022 End: 07-27-2022 Exposure to SARS-CoV-2 (event) Yes [facility] Start: 08-30-1979 End: 09-19-2017 History of tobacco use Current smoker [facility] Start: 08-30-1979 End: 09-19-2017 History of tobacco use Cigarette Smoker [facility] Start: 08-21-2021 End: 03-12-2024 Alcohol intake Ex-drinker (finding) [facility] Start: 08-10-2020 End: 01-29-2023 Tobacco smoking consumption unknown [facility] Start: 08-10-[address] [facility] Start: 1970 Sex Assigned At Female [facility] Start: 02-05-2019 End: 02-06-2024 Social connection and isolation panel [facility] Frequency of Communication with Friends and Family Not on file [facility] Start: 10-29-2018 Gender identity Identifies as female gender (finding) [facility] Start: 03-11-2018 Sexual orientation Heterosexual (finding) [facility] Start: 06-02-2023 Tobacco smoking status NHIS Never smoked tobacco [facility] Work Phone: Start: 06-02-2023 Alcohol Comment rarely [facility] Work Phone: Medical Equipment Procedure Code Equipment Code Equipment Origin al Text Equipment Identifier Dates PORT,POWER 8FR FDA Start: 2017 PORT,POWER 8FR FDA Start: 2017 PORT,POWER 8FR FDA Start: 2017 PORT,POWER 8FR FDA Start: 2017 Goals Date Patient Goal Desired Activity /State Personal health goal Comment on above: Formatting of this n ote might be different from the original. High blood pressure makes your heart work too hard. It can cause heart attack, stroke and kidney disease. Formatting of this n ote might be different from the original. Blood sugar levels outside the normal range may be an indicator of diabetes. Formatting of this n ote might be different from the original. Coping and Emotions: Manage stress Adapt to lifestyle changes Get support from family / friends Comment on above: High blood pressure makes your heart work too hard. It can cause heart attack, stroke and kidney disease. Formatting of this n ote might be different from the original. High blood pressure makes your heart work too hard. It can cause heart attack, stroke and kidney disease. Comment on above: Blood sugar levels o utside the normal range may be an indicator of diabetes. Formatting of this n ote might be different from the original. Blood sugar levels outside the normal range may be an indicator of diabetes. Comment on above: Coping and Emotions: Manage stress Adapt to lifestyle changes Get support from family / friends Formatting of this n ote might be different from the original. Coping and Emotions: Manage stress Adapt to lifestyle changes Get support from family / friends Clinical Notes 12-23-2017 to 05-29-2024 Telephone Encounter - Essence Herring LPN - 05/29/2024 8:02 AM ESTTelephone Encounter - Essence Herring LPN - 05/29/2024 8:02 AM ESTTelephone Encounter - Essence Herring LPN - 05/14/2024 10:04 AM EST Note Date & Type Note Facility 05-29-2024 Telephone encounter Note Last OV 02/06/24. Next OV 02/09/25. [facility] 05-29-2024 Miscellaneous Notes Last OV 02/06/24. Next OV 02/09/25. documented in this encounter [facility] 05-14-2024 Telephone encounter Note LAST OV 02/06/24. NEXT OV 02/09/25. [facility] 05-14-2024 Miscellaneous Notes LAST OV 02/06/24. NEXT OV 02/09/25. documented in this encounter [facility] 03-23-2024 Miscellaneous Notes Last OV 02/06/24. Next OV 02/09/25. documented in this encounter [facility] 03-23-2024 Telephone encounter Note Last OV 02/06/24. Next OV 02/09/25. [facility] 02-06-2024 Note Chief Complaint Patient presents with Annual Exam Meds refill Y HPI: Fco Garnett is 53 y.o. female presenting today to for routine check. Former patient of Kirstie Flora. 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 Anxiety/depression: Patient is currently on Cymbalta 60 mg twice a day. She is also on Buspar 30 mg twice daily, she is doing great on her current medication combination is in the process of going back to workforce and is wondering if that goes well that she can wean herself off some of the medications.. Patient is also on Trazodone 50 mg nightly and this is helping her sleep. Hypothyroidism: Was diagnosed with throat cancer in 2018 and when she finisher treatment noticed she had thyroid problems LEVOTHROID 100 MCG tablet, TFTs have been recently checked in May and was normal. Throat cancer: Was diagnosed back in August 2017, after which she quit smoking. Went through 2 cycles of chemo radiation following up with Dr.Fowler MARTINEZ, she also continues to follow-up with oncology in [place] we will get records. Will complete 5 years of the chemo and radiation, will get records , can go back to work in 10/2022 CT lung updated through oncology, will get records through [place]. LN of right breast: Present on mammogram of the right breast, breasts are heterogeneously dense, which may obscure small masses. Persistent 4.2 mm well-defined nodule in the deep slightly upper central portion of the right breast. No sonographic abnormality is seen. Mammogram was repeated in November [address] [facility] with oncology and came back normal. We will get records. Currently seeing them annually History of Present Illness She reports an improvement in her overall health. Her current medication regimen includes Cymbalta twice daily, Wellbutrin 150 mg, and BuSpar twice daily. She is under the care of an oncology team in [place], with whom she has annual appointments. She underwent a CAT scan and mammogram on Saturday. For muscle spasms, she takes Flexeril three times a week, chronic following her surgery. IBS: Stable on Linzess for bowel regulation as prescribed by Dr. Dowling, She experiences leg movements during sleep but has not taken pentoxifylline for some time. She uses eye drops infrequently. Healthcare maintenance: She has expressed interest in receiving the influenza vaccine in February 2024. She has not undergone any recent blood work. She has noticed a spot on her scar and is unsure if it is due to scratching. Past Medical History: Diagnosis Date Adverse effect of radiation therapy 2018 [facility]/John Mattson MD Cancer of base of tongue (HCC) 2018 John Mattson MD Depression with anxiety 2014 Dr. Hammer Encounter for insertion of venous access port 10/14/2017 [place] [facility]/Judd Concepcion MD Fatigue 2017 [place] [facility]/Judd Concepcion MD History of colon polyps Info Gained From: 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) 09/28/2017 DL with Biopsy of BOT Mass-Dr Gaitan Tinnitus, right ear 2018 [facility]/John Mattson MD Chemo/XRT Past Surgical History: Procedure Laterality Date SECTION, CLASSIC CHOLECYSTECTOMY [facility] ENDOSCOPY TRIPLE 09/23/2017 & 10/04/2017 [place] Munoz/Judd Concepcion MD Tumor mapping EXCISION LESION HEAD/NECK Right 09/16/2017 [facility]/Glenroy Gaitan MD 4cm HYSTERECTOMY 1995 Has one ovary LARYNGOSCOPY W/ LESION EXCISION Right 09/23/2017 Laryngoscopy with Biopsy of right base of tongue mass modified barium swallow 05/21/2018 NODE BIOPSY NECK 09/16/2017 Dr Gaitan ENT PEG TUBE PLACEMENT 10/04/2017 Dr Pascal PORT REMOVAL 07/03/2018 Dr Judd Concecpion-[place] [facility] PORTACATH PLACEMENT 2018 TONGUE BIOPSY 09/26/2017 Dr Gaitan- DL with biopsy of BOT Mass VASCULAR SURGERY Left 2017 Port placement-Left Chest - Dr. Concepcion - [place] Family History Problem Relation Age of Onset Dementia Mother Other Mother Hyperglycemia Diabetes Mother Arthritis Mother Heart disease Father Other Father Hyperglycemia Lung cancer Father Diabetes Father Social History Tobacco Use Smoking status: Former Current packs/day: 0.00 Average packs/day: 1 pack/day for 38.1 years (38.1 ttl pk-yrs) Types: Cigarettes Start date: 08/30/1979 Quit date: 09/19/2017 Years since quittin.3 (more content not included)... [facility] 02-06-2024 History of Present illness Narrative Chief Complaint Patient presents with Annual Exam Meds refill Y HPI: Fco Garnett is 53 y.o. female presenting today to for routine check. Former patient of Kirstie Hines. 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 Anxiety/depression: Patient is currently on Cymbalta 60 mg twice a day. She is also on Buspar 30 mg twice daily, she is doing great on her current medication combination is in the process of going back to workforce and is wondering if that goes well that she can wean herself off some of the medications.. Patient is also on Trazodone 50 mg nightly and this is helping her sleep. Hypothyroidism: Was diagnosed with throat cancer in 2018 and when she finisher treatment noticed she had thyroid problems LEVOTHROID 100 MCG tablet, TFTs have been recently checked in May and was normal. Throat cancer: Was diagnosed back in August 2017, after which she quit smoking. Went through 2 cycles of chemo radiation following up with ENT, she also continues to follow-up with oncology in [place] we will get records. Will complete 5 years of the chemo and radiation, will get records , can go back to work in 10/2022 CT lung updated through oncology, will get records through [place]. LN of right breast: Present on mammogram of the right breast, breasts are heterogeneously dense, which may obscure small masses. Persistent 4.2 mm well-defined nodule in the deep slightly upper central portion of the right breast. No sonographic abnormality is seen. Mammogram was repeated in November [address] [facility] with oncology and came back normal. We will get records. Currently seeing them annually History of Present Illness She reports an improvement in her overall health. Her current medication regimen includes Cymbalta twice daily, Wellbutrin 150 mg, and BuSpar twice daily. She is under the care of an oncology team in [place], with whom she has annual appointments. She underwent a CAT scan and mammogram on Saturday. For muscle spasms, she takes Flexeril three times a week, chronic following her surgery. IBS: Stable on Linzess for bowel regulation as prescribed by Dr. Dowling, She experiences leg movements during sleep but has not taken pentoxifylline for some time. She uses eye drops infrequently. Healthcare maintenance: She has expressed interest in receiving the influenza vaccine in February 2024. She has not undergone any recent blood work. She has noticed a spot on her scar and is unsure if it is due to scratching. Past Medical History: Diagnosis Date Adverse effect of radiation therapy 2017 [facility]/John Mattson MD Cancer of base of tongue (HCC) 2017 John Mattson MD Depression with anxiety 2014 Dr. Hammer Encounter for insertion of venous access port 10/14/2017 [facility]/Judd Concepcion MD Fatigue 2017 [facility]/Judd Concepcion MD History of colon polyps Info Gained From: 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) 09/28/2017 DL with Biopsy of BOT Mass-Dr Gaitan Tinnitus, right ear 2017 [facility]/John Mattson MD Chemo/XRT Past Surgical History: Procedure Laterality Date SECTION, CLASSIC CHOLECYSTECTOMY [facility] ENDOSCOPY TRIPLE 09/23/2017 & 10/04/2017 [facility]/Judd Concepcion MD Tumor mapping EXCISION LESION HEAD/NECK Right 09/16/2017 [facility]/Glenroy Gaitan MD 4cm HYSTERECTOMY 1995 Has one ovary LARYNGOSCOPY W/ LESION EXCISION Right 09/23/2017 Laryngoscopy with Biopsy of right base of tongue mass modified barium swallow 05/21/2018 NODE BIOPSY NECK 09/16/2017 Dr Gaitan ENT PEG TUBE PLACEMENT 10/04/2017 Dr Pascal PORT REMOVAL 07/03/2018 Dr Judd Concepcion-[facility] PORTACATH PLACEMENT 2018 TONGUE BIOPSY 09/26/2017 Dr Gaitan- MAX with biopsy of BOT Mass VASCULAR SURGERY Left 2017 Port placement-Left Chest - Dr. 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 Weight as of this encounter: 77.1 kg (169 lb 14.4 oz). Physical Exam Constitutional: General: She is not in acute distress. Appearance: She is not ill-appearing. HENT: Head: Normocephalic and atraumatic. Right Ear: Tympanic membrane, ear canal and external ear normal. Left Ear: Tympanic membrane, ear canal and external ear normal. Nose: Nose normal. Mouth/Throat: Mouth: Mucous membranes are moist. Pharynx: Oropharynx is clear. No oropharyngeal exudate or posterior oropharyngeal erythema. Eyes: Extraocular Movements: Extraocular movements intact. Conjunctiva/sclera: Conjunctivae normal. Pupils: Pupils are equal, round, and reactive to light. Cardiovascular: Rate and Rhythm: Normal rate and regular rhythm. Pulses: Normal pulses. Heart sounds: Normal heart sounds. No murmur heard. No gallop. Pulmonary: Effort: Pulmonary effort is normal. Breath sounds: Normal breath sounds. No wheezing, rhonchi or rales. Chest: Chest wall: No tenderness. Abdominal: General: Abdomen is flat. Bowel sounds are normal. There is no distension. Palpations: Abdomen is soft. There is no mass. Tenderness: There is no abdominal tenderness. There is no right CVA tenderness, left CVA tenderness, guarding or rebound. Musculoskeletal: General: No tenderness. Normal range of motion. Cervical back: Normal range of motion and neck supple. No rigidity. No muscular tenderness. Right lower leg: No edema. Left lower leg: No edema. Lymphadenopathy: Cervical: No cervical adenopathy. Skin: General: Skin is warm. Findings: No erythema or rash. Neurological: General: No focal deficit present. Mental Status: She is alert and oriented to person, place, and time. Sensory: No sensory deficit. Motor: No weakness. Gait: Gait normal. Psychiatric: Mood and Affect: Mood normal. Behavior: Behavior normal. Thought Content: Thought content normal. Judgment: Judgment normal. OARRS/NARxCHECK Report Received and Assessed: Date controlled substance agreement signed: 09/05/2020 Date of last drug screen: @Exam@ PHQ9: Over the last 2 weeks, how often have you been bothered by any of the following problems? Little interest or pleasure in doing things: Several days Feeling down, depressed, or hopeless: Several days PHQ-2 Total Score: 2 Trouble falling or staying asleep, or sleeping too much: Several days Feeling tired or having little energy: Several days Poor appetite or overeating: Several days Feeling bad about yourself - or that you are a failure or have let yourself or your family down: Not at all Trouble concentrating on things, such as reading the newspaper or watching television: Several days Moving or speaking so slowly that other people could have noticed. Or the opposite - being so fidgety or restless that you have been moving around a lot more than usual: Not at all Thoughts that you would be better off , or of hurting yourself in some way: Not at all PHQ-9 Total Score: 6 JAZMIN-7 Over the last 2 weeks, how often have you been bothered by the following problems? Feeling nervous, anxious or on edge: Not at all Not being able to stop or control worrying: Several days Worrying too much about different things: Several days Trouble relaxing: Not at all Being so restless that it is hard to sit still: Several days Becoming easily annoyed or irritable: Not at all Feeling afraid as if something awful might happen: Not at all JAZMIN-7 Score: 3 Tobacco Counseling: Counseling given: Not Answered Patient's Medications New Prescriptions No medications on file Previous Medications BUSPIRONE (BUSPAR) 30 MG TABLET Take 1 (one) tablet (30 mg total) by mouth 2 (two) times a day . CYCLOBENZAPRINE (FLEXERIL) 10 MG TABLET Take 1 (one) tablet (10 mg total) by mouth 2 (two) times a day as needed for muscle spasms (neck pain) . DULOXETINE (CYMBALTA) 60 MG CAPSULE Take 1 (one) capsule (60 mg total) by mouth 2 (two) times a day . FLU VAC QV 2021,18YR UP,RCM-PF (FLUBLOK QUAD) SYRINGE Sign this order in conjunction with the immunization order to satisfy [place] Board [employer] Pharm[employer] Positive ID requirements for immunization orders. . LEVOTHYROXINE (SYNTHROID, LEVOTHROID) 100 MCG TABLET Take 1 (one) tablet (100 mcg total) by mouth once daily . LINACLOTIDE (LINZESS) 145 MCG CAP Take 1 (one) capsule (145 mcg total) by mouth daily . MULTIVITAMIN (THERAGRAN) PER TABLET Take 1 (one) tablet by mouth daily . PENTOXIFYLLINE (TRENTAL) 400 MG CR TABLET Take 1 (one) tablet (400 mg total) by mouth 3 (three) times a day with meals . PILOCARPINE (SALAGEN) 5 MG TABLET Take 1 (one) tablet (5 mg total) by mouth 3 (three) times a day . VITAMIN B COMPLEX (B COMPLEX-VITAMIN B12 ORAL) Take 1 tablet by mouth daily . VITAMIN E 1000 UNIT CAPSULE TAKE 1 CAPSULE BY MOUTH ONCE DAILY FOR FIBROSIS Modified Medications Modified Medication Previous Medication BUPROPION (WELLBUTRIN XL) 150 MG 24 HR TABLET buPROPion (Wellbutrin XL) 150 MG 24 hr tablet Take 1 (one) tablet (150 mg total) by mouth daily . Take 1 (one) tablet (150 mg total) by mouth daily . Discontinued Medications TRAZODONE (DESYREL) 50 MG TABLET Take 1 (one) tablet (50 mg total) by mouth nightly . Health Maintenance Due Topic Date Due Low-dose CT Lung Cancer Screen 11/28/2022 Influenza Vaccine (1) 01/26/2024 COVID-19 Vaccine (2022-24 season) Never done Assessment & Plan Problem List Items Addressed This Visit Digestive Malignant neoplasm of base of tongue (HCC) Relevant Orders Comprehensive Metabolic Panel CBC and Differential (Completed) Endocrine Hypothyroidism (acquired) - Primary Relevant Orders TSH with Reflex Free T4 Other Mild major depression (HCC) Relevant Medications buPROPion (Wellbutrin XL) 150 MG 24 hr tablet Other Visit Diagnoses Obesity (BMI 30-39.9) Relevant Orders Hemoglobin A1c (Completed) Lipid Panel Assessment & Plan 1. Depression. She is currently on Cymbalta twice a day and Wellbutrin (bupropion) 150 mg. She reports feeling good on this regimen. A refill for Wellbutrin 150 mg will be sent to her pharmacy. She is also taking BuSpar twice a day. 2. Muscle Spasms. She uses Flexeril sparingly, approximately three times a week, for muscle spasms. She is advised to be cautious of long-term use due to increased fall risk and potential tiredness. Topical treatments such as BenGay or Biofreeze and heat application (e.g., a rice bag) are recommended as additional options. 3. Hypothyroidism. She continues to take levothyroxine. Blood work will be conducted today to check her thyroid function and electrolyte levels. 4. Irritable Bowel Syndrome (IBS). She is currently taking Linzess for bowel movements, prescribed by Dr. Dowling. Her bowel movements are regular with this medication. 5.muscle spasm. She is uncertain about her use of pentoxifylline (Trental) for nerve pain. She will check her medication list and confirm if she is still taking it. 6. Health Maintenance. She had a mammogram and a CT lung and neck scan recently, both of which were normal. She will follow up with the oncology team in one year. She is advised to get the influenza vaccine in February 2024, either at the pharmacy or during a nurse visit. She is also encouraged to consider the COVID-19 vaccine. Return in about 1 year (around 02/05/2025), or & february for flu shot w/nurse, for Annual Exam. ISIDRO WAKEFIELD MD [facility] [address] [facility] [address] [facility] [id number] Dept: [phone] 09/18/2017 9:00 AM 03/19/2018 8:00 AM 02/05/2019 4:00 PM 06/08/2019 10:00 AM 03/09/2021 10:00 AM 02/06/2024 1:58 PM Depression Screening Little interest or pleasure in doing things 1 1 1 0 2 1 Feeling down, depressed, or hopeless 1 1 1 1 2 1 PHQ-2 Total Score 2 2 2 1 4 2 Trouble falling or staying asleep, or sleeping too much 1 1 1 0 0 1 Feeling tired or having little energy 1 1 1 0 1 1 Poor appetite or overeating 2 1 1 0 1 1 Feeling bad about yourself - or that you are a failure or have let yourself or your family down 0 0 1 0 1 0 Trouble concentrating on things, such as reading the newspaper or watching television 1 1 1 0 2 1 Moving or speaking so slowly that other people could have noticed. Or the opposite - being so fidgety or restless that you have been moving around a lot more than usual 0 1 0 0 0 0 Thoughts that you would be better off , or of hurting yourself in some way 0 0 1 0 0 0 PHQ-9 Total Score 7 7 8 1 9 6 If you checked off any problems, how difficult have these problems made it for you to do your work, take care of things at home, or get along with other people? Somewhat difficult Not difficult at all Not difficult at all documented in this encounter [facility] 01-13-2024 Evaluation + Plan note Associated Problem(s): Acquired hypothyroidism Adverse effect of radiation Managed by PCP Continue synthroid [facility] Work Phone: 01-13-2024 Miscellaneous Notes Associated Problem(s): Acquired hypothyroidism Adverse effect of radiation Managed by PCP Continue synthroid Associated Problem(s): Malignant neoplasm of oropharynx (Multi) No evidence of disease on exam or endoscopy Follow up in 1 year CXR negative Associated Problem(s): Pharyngoesophageal dysphagia Chronic, adverse effect of radiation Mild, continue current diet Weight is stable Associated Problem(s): 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, mild Continue conservative tx documented in this encounter [facility] Work Phone: 01-13-2024 Evaluation + Plan note Associated Problem(s): Malignant neoplasm of oropharynx (Multi) No evidence of disease on exam or endoscopy Follow up in 1 year CXR negative [facility] Work Phone: 01-13-2024 Evaluation + Plan note Associated Problem(s): Pharyngoesophageal dysphagia Chronic, adverse effect of radiation Mild, continue current diet Weight is stable [facility] Work Phone: 01-13-2024 Evaluation + Plan note Associated Problem(s): 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 female following up with me today for her T3N2M0 SCCa P16+ right BOT cancer. She completed chemoradiation therapy 12/23/17. Last seen 11/16. She's doing great. Mild dysphagia. Weight is stable. +mild xerostomia. No new concerns today. No interim health concerns. PCP is managing her TSH. CXR from 06/19 negative. 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 Mild fatigue. History: Dx: T3N2M0 SCCa, P16+ Right BOT [...] her neck and no evidence of metastasis. 04/13: MBS w/speech decreased epiglottic inversion and muscle damage in her throat 06/28/18: 6 month post treatment PET - resolution or previous FDG avidity within the BOT, with complete response in her neck and no evidence of metastasis. 10/12: Follow up MBS much improved, passed, colonoscopy negative 11/12: Mammogram negative 12/29/18: CXR negative 03/14: TSH normal on synthroid 08/14: CXR negative Social History She reports that she has never smoked. She has never used smokeless tobacco. She reports current alcohol use. She reports current drug use. Frequency: 4.00 times per week. Drug: Marijuana. ROS: Review of Systems Constitutional: Negative for appetite change, chills, fatigue, fever and unexpected weight change. HENT: Negative for dental problem, drooling, ear pain, facial swelling, hearing loss, mouth sores, sore throat, tinnitus, trouble swallowing and voice change. Respiratory: Negative for cough, shortness of breath and stridor. Gastrointestinal: Negative for nausea and vomiting. Musculoskeletal: Negative for neck pain. Hematological: Negative for adenopathy. PE: ENT Physical Exam Constitutional Appearance: patient appears well-developed, Communication/Voice: Communication comments: Coarse voice Head and Face Appearance: head appears normal and face appears normal; Salivary: glands normal; Ear Auricles: right auricle normal; left auricle normal; Ear Canals: right ear canal normal; left ear canal normal; Tympanic Membranes: right tympanic membrane normal; left tympanic membrane normal; Nose Internal Nose: nasal mucosa normal; septum normal; Oral Cavity/Oropharynx Gums: gingiva normal; Tongue: normal; Oral mucosa: normal; OC/OP comments: OP clear, no masses or lesions, soft to palpation Neck Neck: radiation changes present; normal trachea; Neck comments: No lymphadenopathy, moderate fibrosis with telangectasias bilaterally on her neck Respiratory Inspection: breathing unlabored; Cardiovascular Inspection: extremities are warm and well perfused; Neurovestibular Mental Status: alert and oriented; Psychiatric: mood normal; affect is appropriate; Cranial Nerves: cranial nerves intact; Procedures PROCEDURE NOTE: Recommended flexible nasopharyngoscopy & laryngoscopy. Risks, benefits, personnel and alternatives were explained. The patient wished to proceed. S/he was re-identified. PROCEDURE: Flexible nasopharyngoscopy and laryngoscopy PREOPERATIVE DIAGNOSIS: Cancer surveillance POSTOPERATIVE DIAGNOSIS: Same as above, no new masses or lesions INDICATIONS: Inability to tolerate mirror exam ANESTHESIA: 4% lidocaine and 0.5% phenylephrine PROCEDURE: With the patient sitting upright topical anesthesia and vasoconstriction was applied with spray to the right side(s) of the nose. After waiting an appropriate period of time for anesthesia/vasoconstriction to become effective, a flexible laryngoscope was passed through the right side(s) of the nose. Nasopharynx, oropharynx, hypopharynx and larynx were examined. FINDINGS: The nasopharynx and oropharynx were normal without any lesions or masses visualized. No masses or lesions were visualized at the base of tongue, vallecula, epiglottis, aryepiglottic folds, pyriform sinuses, and lateral pharyngeal clement. +radiation changes, mild mucous and thickening no new lesions. True vocal fold movement was normal. The patient's airway was widely patent with no evidence of obstruction. Patient tolerated the procedure well, and there were no complications. ASSESSMENT AND PLAN: Problem List Items Addressed This Visit Xerostomia due to radiotherapy - Primary Current Assessment & Plan Chronic, mild Continue conservative tx Pharyngoesophageal dysphagia Current Assessment & Plan Chronic, adverse effect of radiation Mild, continue current diet Weight is stable Malignant neoplasm of oropharynx (Multi) Current Assessment & Plan No evidence of disease on exam or endoscopy Follow up in 1 year CXR negative Acquired hypothyroidism Current Assessment & Plan Adverse effect of radiation Managed by PCP Continue synthroid John Mattson MD Head & Neck Surgical Oncology & Reconstruction Department of Otolaryngology - Head and Neck Surgery By signing my name below, I, Joyce Christiansenibe, attest that this documentation has been prepared under the direction and in the presence of Dr. John Mattson MD. All medical record entries made by the Scribe were at my direction and personally dictated by me, Dr. John Mattson. I have reviewed the chart and agree that the record accurately reflects my personal performance of the history, physical exam, discussion and plan. documented in this encounter [facility] Work Phone: 11-06-2023 Telephone encounter Note LAST OV 10/24/23 (TELEHEALTH). NEXT OV SCHEDULED FOR 12/05/23. [facility] 11-06-2023 Miscellaneous Notes LAST OV 10/24/23 (TELEHEALTH). NEXT OV SCHEDULED FOR 12/05/23. documented in this encounter [facility] 10-25-2023 History of Present illness Narrative MARCELO MAILED TO PATIENT WILL REQUEST RECORDS ONCE MARCELO RECEIVED BACK Video Visit Via Phone Call [facility] [address] [facility] [address] [facility] [id number] Video Visit [facility] 10/24/2023 Isidro Wakefield MD Provider Location: [address] [place] [address] Patient Location Pulmonary Disease Specialist: None Patient Location: Patient's Home Patient: Fco Garnett Date of : 1970 (53 y.o. female) PCP: Isidro Wakefield MD I discussed risks, benefits and alternatives of a video visit telemedicine consultation with the patient (and any accompanying persons) including the risks that the patient's personal health details and medical records will be discussed over real-time, synchronous, interactive audio technology, the visit will not be recorded without the express consent of both the provider and the patient, and that there are inherent diagnostic limitations compared to [id number] evaluations. We elected to proceed with the video visit telemedicine consultation. HPI Fco Garnett is 52 y.o. female presenting today to for routine check. 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 Anxiety/depression: Patient is currently on Cymbalta 120 mg day. She is also on Buspar 30 mg twice daily, she is doing great on her current medication combination is in the process of going back to workforce and is wondering if that goes well that she can wean herself off some of the medications.. 10/23: Has been feeling down and depressed for the past 3 to 4 months, sometimes happen down time at work where she starts to think and ponder on some of the stressors with her daughter and her son, does not have energy to do much after she comes back from work. Currently working at [employer] in [place] third shift for the past year. Hypothyroidism: Was diagnosed with throat cancer in 2018 and when she finisher treatment noticed she had thyroid problems LEVOTHROID 100 MCG tablet, TFTs have been recently checked in May and was normal. Throat cancer: Was diagnosed back in August 2017, after which she quit smoking. Went through 2 cycles of chemo radiation following up with ENT, she also continues to follow-up with oncology in [place] we will get records. Will complete 5 years of the chemo and radiation, will get records , can go back to work in 10/2022 CT lung updated through oncology, will get records through [place]. LN of right breast: Present on mammogram of the right breast, breasts are heterogeneously dense, which may obscure small masses. Persistent 4.2 mm well-defined nodule in the deep slightly upper central portion of the right breast. No sonographic abnormality is seen. Mammogram was repeated in November [address] [facility] with oncology and came back normal. We will get records The following portions of the patient's history were reviewed and updated as appropriate: allergies, current medications, past family history, past medical history, past social history, past surgical history, and problem list. Review of Systems Patient's Medications New Prescriptions No medications on file Previous Medications BUSPIRONE (BUSPAR) 30 MG TABLET Take 1 (one) tablet (30 mg total) by mouth 2 (two) times a day . CYCLOBENZAPRINE (FLEXERIL) 10 MG TABLET Take 1 (one) tablet (10 mg total) by mouth 2 (two) times a day as needed for muscle spasms (neck pain) . DULOXETINE (CYMBALTA) 60 MG CAPSULE Take 1 (one) capsule (60 mg total) by mouth 2 (two) times a day . FLU VAC QV 2021,18YR UP,RCM-PF (FLUBLOK QUAD) SYRINGE Sign this order in conjunction with the immunization order to satisfy [place] Board [employer] Pharmacy Positive ID requirements for immunization orders. . LEVOTHYROXINE (SYNTHROID, LEVOTHROID) 100 MCG TABLET Take 1 (one) tablet (100 mcg total) by mouth once daily . LINACLOTIDE (LINZESS) 145 MCG CAP Take 1 (one) capsule (145 mcg total) by mouth daily . MULTIVITAMIN (THERAGRAN) PER TABLET Take 1 (one) tablet by mouth daily . PENTOXIFYLLINE (TRENTAL) 400 MG CR TABLET Take 1 (one) tablet (400 mg total) by mouth 3 (three) times a day with meals . PILOCARPINE (SALAGEN) 5 MG TABLET Take 1 (one) tablet (5 mg total) by mouth 3 (three) times a day . TRAZODONE (DESYREL) 50 MG TABLET Take 1 (one) tablet (50 mg total) by mouth nightly . VITAMIN B COMPLEX (B COMPLEX-VITAMIN B12 ORAL) Take 1 tablet by mouth daily . VITAMIN E 1000 UNIT CAPSULE TAKE 1 CAPSULE BY MOUTH ONCE DAILY FOR FIBROSIS Modified Medications No medications on file Discontinued Medications No medications on file Assessment/Plan: Problem List Items Addressed This Visit Other Mild major depression (HCC) - Primary Relevant Medications buPROPion (Wellbutrin XL) 150 MG 24 hr tablet Other Relevant Orders Ambulatory Ref to [facility] [employer] Discussed behavioral health referral and adding Wellbutrin to the current dose of Cymbalta as if it is not working with close follow-up in 1 month might consider switching to a different SSRI or SNRI. My ongoing relationship with Fco Garnett requires continued responsibility and cognitive effort of being the focal point for all services related to chronic condition(s). ISIDRO WAKEFIELD MD Family Medicine Physician [place] [phone] documented in this encounter [facility] 10-24-2023 Note Video Visit Via Phon e Call [facility] [address] [place] [phone] Video Visit [facility] 10/24/2023 Isidro Wakefield MD Provider Location: [address] [place] [address] Patient Location Pulmonary Disease Specialist: None Patient Location: Patient's Home Patient: Fco Garnett Date of : 1970 (53 y.o. female) PCP: Isidro Wakefield MD I discussed risks, benefits and alternatives of a video visit telemedicine consultation with the patient (and any accompanying persons) including the risks that the patient's personal health details and medical records will be discussed over real-time, synchronous, interactive audio technology, the visit will not be recorded without the express consent of both the provider and the patient, and that there are inherent diagnostic limitations compared to [id number] evaluations. We elected to proceed with the video visit telemedicine consultation. HPI Fco Garnett is 52 y.o. female presenting today to for routine check. 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 Anxiety/depression: Patient is currently on Cymbalta 120 mg day. She is also on Buspar 30 mg twice daily, she is doing great on her current medication combination is in the process of going back to workforce and is wondering if that goes well that she can wean herself off some of the medications.. 10/23: Has been feeling down and depressed for the past 3 to 4 months, sometimes happen down time at work where she starts to think and ponder on some of the stressors with her daughter and her son, does not have energy to do much after she comes back from work. Currently working at [employer] in [place] third shift for the past year. Hypothyroidism: Was diagnosed with throat cancer in 2018 and when she finisher treatment noticed she had thyroid problems LEVOTHROID 100 MCG tablet, TFTs have been recently checked in May and was normal. Throat cancer: Was diagnosed back in August 2017, after which she quit smoking. Went through 2 cycles of chemo radiation following up with ENT, she also continues to follow-up with oncology in [place] we will get records. Will complete 5 years of the chemo and radiation, will get records , can go back to work in 10/2022 CT lung updated through oncology, will get records through [place]. LN of right breast: Present on mammogram of the right breast, breasts are heterogeneously dense, which may obscure small masses. Persistent 4.2 mm well-defined nodule in the deep slightly upper central portion of the right breast. No sonographic abnormality is seen. Mammogram was repeated in November [address] [facility] with oncology and came back normal. We will get records The following portions of the patient's history were reviewed and updated as appropriate: allergies, current medications, past family history, past medical history, past social history, past surgical history, and problem list. Review of Systems Patient's Medications New Prescriptions No medications on file Previous Medications BUSPIRONE (BUSPAR) 30 MG TABLET Take 1 (one) tablet (30 mg total) by mouth 2 (two) times a day . CYCLOBENZAPRINE (FLEXERIL) 10 MG TABLET Take 1 (one) tablet (10 mg total) by mouth 2 (two) times a day as needed for muscle spasms (neck pain) . DULOXETINE (CYMBALTA) 60 MG CAPSULE Take 1 (one) capsule (60 mg total) by mouth 2 (two) times a day . FLU VAC QV 2021,18YR UP,RCM-PF (FLUBLOK QUAD) SYRINGE Sign this order in conjunction with the immunization order to satisfy [place] Board of Pharmacy Positive ID requirements for immunization orders. . LEVOTHYROXINE (SYNTHROID, LEVOTHROID) 100 MCG TABLET Take 1 (one) tablet (100 mcg total) by mouth once daily . LINACLOTIDE (LINZESS) 145 MCG CAP Take 1 (one) capsule (145 mcg total) by mouth daily . MULTIVITAMIN (THERAGRAN) PER TABLET Take 1 (one) tablet by mouth daily . PENTOXIFYLLINE (TRENTAL) 400 MG CR TABLET Take 1 (one) tablet (400 mg total) by mouth 3 (three) times a day with meals . PILOCARPINE (SALAGEN) 5 MG TABLET Take 1 (one) tablet (5 mg total) by mouth 3 (three) times a day . TRAZODONE (DESYREL) 50 MG TABLET Take 1 (one) tablet (50 mg total) by mouth nightly . VITAMIN B COMPLEX (B COMPLEX-VITAMIN B12 ORAL) Take 1 tablet by mouth daily . VITAMIN E 1000 UNIT CAPSULE TAKE 1 CAPSULE BY MOUTH ONCE DAILY FOR FIBROSIS Modified Medications No medications on file Discontinued Medications No medications on file Assessment/Plan: Problem List Items Addressed This Visit Other Mild major depression (HCC) - Primary Relevant Medications buPROPion (Wellbutrin XL) 150 MG 24 hr tablet Other Relevant Orders Ambulatory Ref to [place] CM Fur Ironer Discussed behavioral health referral and adding Wel (more content not included)... [facility] Ambulatory 10-24-2023 History of Present illness Narrative Video Visit Via Phone Call [facility] [address] [place] [address] [facility] [address] [place] [phone] Video Visit [facility] 10/24/2023 Isidro Wakefield MD Provider Location: [address] [place] [address] Patient Location Pulmonary Disease Specialist: None Patient Location: Patient's Home Patient: Fco Garnett Date of : 1970 (53 y.o. female) PCP: Isidro Wakefield MD I discussed risks, benefits and alternatives of a video visit telemedicine consultation with the patient (and any accompanying persons) including the risks that the patient's personal health details and medical records will be discussed over real-time, synchronous, interactive audio technology, the visit will not be recorded without the express consent of both the provider and the patient, and that there are inherent diagnostic limitations compared to [id number] evaluations. We elected to proceed with the video visit telemedicine consultation. ALEK Garnett is 52 y.o. female presenting today to for routine check. Has PMH of anxiety/depression, hypothyroidism, tongue squamous cell carcinoma, fatigue, former smoker and Third shift at [employer] in [place]. Anxiety/depression: Patient is currently on Cymbalta 120 mg day. She is also on Buspar 30 mg twice daily, she is doing great on her current medication combination is in the process of going back to workforce and is wondering if that goes well that she can wean herself off some of the medications.. 10/23: Has been feeling down and depressed for the past 3 to 4 months, sometimes happen down time at work where she starts to think and ponder on some of the stressors with her daughter and her son, does not have energy to do much after she comes back from work. Currently working at [employer] in [place] third shift for the past year. Hypothyroidism: Was diagnosed with throat cancer in 2018 and when she finisher treatment noticed she had thyroid problems LEVOTHROID 100 MCG tablet, TFTs have been recently checked in May and was normal. Throat cancer: Was diagnosed back in August 2017, after which she quit smoking. Went through 2 cycles of chemo radiation following up with ENT, she also continues to follow-up with oncology in [place] we will get records. Will complete 5 years of the chemo and radiation, will get records , can go back to work in 10/2022 CT lung updated through oncology, will get records through [place]. LN of right breast: Present on mammogram of the right breast, breasts are heterogeneously dense, which may obscure small masses. Persistent 4.2 mm well-defined nodule in the deep slightly upper central portion of the right breast. No sonographic abnormality is seen. Mammogram was repeated in November [address] [facility] with oncology and came back normal. We will get records The following portions of the patient's history were reviewed and updated as appropriate: allergies, current medications, past family history, past medical history, past social history, past surgical history, and problem list. Review of Systems Patient's Medications New Prescriptions No medications on file Previous Medications BUSPIRONE (BUSPAR) 30 MG TABLET Take 1 (one) tablet (30 mg total) by mouth 2 (two) times a day . CYCLOBENZAPRINE (FLEXERIL) 10 MG TABLET Take 1 (one) tablet (10 mg total) by mouth 2 (two) times a day as needed for muscle spasms (neck pain) . DULOXETINE (CYMBALTA) 60 MG CAPSULE Take 1 (one) capsule (60 mg total) by mouth 2 (two) times a day . FLU VAC QV 2021,18YR UP,RCM-PF (FLUBLOK QUAD) SYRINGE Sign this order in conjunction with the immunization order to satisfy [place] Board of Pharmacy Positive ID requirements for immunization orders. . LEVOTHYROXINE (SYNTHROID, LEVOTHROID) 100 MCG TABLET Take 1 (one) tablet (100 mcg total) by mouth once daily . LINACLOTIDE (LINZESS) 145 MCG CAP Take 1 (one) capsule (145 mcg total) by mouth daily . MULTIVITAMIN (THERAGRAN) PER TABLET Take 1 (one) tablet by mouth daily . PENTOXIFYLLINE (TRENTAL) 400 MG CR TABLET Take 1 (one) tablet (400 mg total) by mouth 3 (three) times a day with meals . PILOCARPINE (SALAGEN) 5 MG TABLET Take 1 (one) tablet (5 mg total) by mouth 3 (three) times a day . TRAZODONE (DESYREL) 50 MG TABLET Take 1 (one) tablet (50 mg total) by mouth nightly . VITAMIN B COMPLEX (B COMPLEX-VITAMIN B12 ORAL) Take 1 tablet by mouth daily . VITAMIN E 1000 UNIT CAPSULE TAKE 1 CAPSULE BY MOUTH ONCE DAILY FOR FIBROSIS Modified Medications No medications on file Discontinued Medications No medications on file Assessment/Plan: Problem List Items Addressed This Visit Other Mild major depression (HCC) - Primary Relevant Medications buPROPion (Wellbutrin XL) 150 MG 24 hr tablet Other Relevant Orders Ambulatory Ref to [place] CM Fur Ironer Discussed behavioral health referral and adding Wellbutrin to the current dose of Cymbalta as if it is not working with close follow-up in 1 month might consider switching to a different SSRI or SNRI. My ongoing relationship with Fco Garnett requires continued responsibility and cognitive effort of being the focal point for all services related to chronic condition(s). ISIDRO WAKEFIELD MD Family Medicine Physician [place] [phone] documented in this encounter [facility] 08-19-2023 Telephone encounter Note NEXT OV SCHEDULED FOR 01/31/23. NEXT OV SCHEDULED FOR 02/07/24. [facility] 08-19-2023 Telephone encounter Note ----- Message from Leisa Faria sent at 08/19/2023 4:54 PM EDT ----- Regarding: rx refill Contact: self MEDICATION REFILL REQUEST: PCP: Isidro Wakefield MD Patient called 08/19/23 and is requesting a medication refill for DispRefillsStartEnd busPIRone (BUSPAR) 30 MG [id number] Sig - Route: Take 1 (one) tablet (30 mg total) by mouth 2 (two) times a day . - Oral Sent to pharmacy as: busPIRone 30 mg tablet (BUSPAR) E-Prescribing Status: Receipt confirmed by pharmacy (06/26/2022 11:42 AM EST) . This was confirmed from the current medication list found in the patients chart. Supply Requested: # of days: 90 days Method of receiving: Send to pharmacy Last set of flowsheet rows for OARRS report: OARRS/NARxCHECK Report Received and Assessed: 09/05/2020 Date controlled substance agreement signed: 09/05/2020 Date of last drug screen: No data found Functional Assessment: No data found Will this refill be sent to the preferred pharmacy listed below? Yes Preferred pharmacies: [facility]/pharmacy #[id number] [address] Pt Call Back Number Work Phone Not on file. Patient call back message sent to the primary care clinical pool. Leisa Faria [facility] 08-19-2023 Miscellaneous Notes NEXT OV SCHEDULED FOR 01/31/23. NEXT OV SCHEDULED FOR 02/07/24. ----- Message from Leisa Faria sent at 08/19/2023 4:54 PM EDT ----- Regarding: rx refill Contact: self MEDICATION REFILL REQUEST: PCP: Isidro Wakefield MD Patient called 08/19/23 and is requesting a medication refill for DispRefillsStartEnd busPIRone (BUSPAR) 30 MG [id number] Sig - Route: Take 1 (one) tablet (30 mg total) by mouth 2 (two) times a day . - Oral Sent to pharmacy as: busPIRone 30 mg tablet (BUSPAR) E-Prescribing Status: Receipt confirmed by pharmacy (06/26/2022 11:42 AM EST) . This was confirmed from the current medication list found in the patients chart. Supply Requested: # of days: 90 days Method of receiving: Send to pharmacy Last set of flowsheet rows for OARRS report: OARRS/NARxCHECK Report Received and Assessed: 09/05/2020 Date controlled substance agreement signed: 09/05/2020 Date of last drug screen: No data found Functional Assessment: No data found Will this refill be sent to the preferred pharmacy listed below? Yes Preferred pharmacies: [facility]/pharmacy #[id number] [address] Pt Call Back Number Work Phone Not on file. Patient call back message sent to the primary care clinical pool. Leisa Faria documented in this encounter [facility] 07-10-2023 Telephone encounter Note LAST OV 01/31/23. NEXT OV SCHEDULED FOR 02/07/24. [facility] 07-10-2023 Miscellaneous Notes LAST OV 01/31/23. NEXT OV SCHEDULED FOR 02/07/24. documented in this encounter [facility] 04-08-2023 Telephone encounter Note Last OV 01/31/23. Next OV 02/07/24. [facility] 04-08-2023 Miscellaneous Notes Last OV 01/31/23. Next OV 02/07/24. ----- Message from Aisha Parks sent at 04/08/2023 3:38 PM EST ----- Regarding: Rx Refill Contact: patient MEDICATION REFILL REQUEST: PCP: Isidro Wakefield MD Patient called 04/08/23 and is requesting a medication refill for cyclobenzaprine (FLEXERIL) 10 MG tablet This was confirmed from the current medication list found in the patients chart. Supply Requested: # of days: 90 days Method of receiving: Send to pharmacy Last set of flowsheet rows for OARRS report: OARRS/ButchCK Report Received and Assessed: 09/05/2020 Date controlled substance agreement signed: 09/05/2020 Date of last drug screen: No data found Functional Assessment: No data found Will this refill be sent to the preferred pharmacy listed below? Yes Preferred pharmacies: [facility]/pharmacy #[id number] [place] [phone] Pt Call Back Number Patient call back message sent to the [facility] [place]. Aisha Parks documented in this encounter [facility] 04-08-2023 Telephone encounter Note ----- Message from Aisha Parks sent at 04/08/2023 3:38 PM EST ----- Regarding: Rx Refill Contact: patient MEDICATION REFILL REQUEST: PCP: Isidro Wakefield MD Patient called 04/08/23 and is requesting a medication refill for cyclobenzaprine (FLEXERIL) 10 MG tablet This was confirmed from the current medication list found in the patients chart. Supply Requested: # of days: 90 days Method of receiving: Send to pharmacy Last set of flowsheet rows for OARRS report: OARRS/NARxCHECK Report Received and Assessed: 09/05/2020 Date controlled substance agreement signed: 09/05/2020 Date of last drug screen: No data found Functional Assessment: No data found Will this refill be sent to the preferred pharmacy listed below? Yes Preferred pharmacies: [facility]/pharmacy #[id number] [place] [address] Pt Call Back Number Patient call back message sent to the [facility]. Aisha Parks [facility] 01-31-2023 Evaluation + Plan note Associated Problem(s): Abnormal mammogram Getting annual mammogram with oncology, we will get records. [facility] 01-31-2023 Miscellaneous Notes Associated Problem(s): Abnormal mammogram Getting annual mammogram with oncology, we will get records. Associated Problem(s): Hypothyroidism (acquired) TFTs within normal limits, will continue with levothyroxine 100 mcg. Recheck TFTs today Associated Problem(s): IBS (irritable bowel syndrome) On Linzess refilled by Dr. Dowling Associated Problem(s): Malignant neoplasm of base of tongue (HCC) Went through chemo radiation following up with Dr.Fowler MARTINEZ, she also continues to follow-up with oncology in [place] we will get records, will graduate completing 5 years in October 2022 and will follow-up annually with oncology, will get records. documented in this encounter [facility] 01-31-2023 Evaluation + Plan note Associated Problem(s): Hypothyroidism (acquired) TFTs within normal limits, will continue with levothyroxine 100 mcg. Recheck TFTs today [facility] 01-31-2023 Evaluation + Plan note Associated Problem(s): IBS (irritable bowel syndrome) On Linzess refilled by Dr. 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 [facility] 01-31-2023 History of Present illness Narrative Images from the original note were not included. Isidro Wakefield MD Cooper, Trisha, MA; Klaudia Layton MA Please get reords from in [place] as well as CT lung and mammogram results from there Faxed for records fax [phone] Chief Complaint Patient presents with Follow-up 6 mon fu HPI: Fco Garnett is 52 y.o. female presenting today to for routine check. Former patient of Kirstie Hines. 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 Anxiety/depression: Patient is currently on Cymbalta 60 mg twice a day. She is also on Buspar 30 mg twice daily, she is doing great on her current medication combination is in the process of going back to workforce and is wondering if that goes well that she can wean herself off some of the medications.. Patient is also on Trazodone 50 mg nightly and this is helping her sleep. Hypothyroidism: Was diagnosed with throat cancer in 2018 and when she finisher treatment noticed she had thyroid problems LEVOTHROID 100 MCG tablet, TFTs have been recently checked in May and was normal. Throat cancer: Was diagnosed back in August 2017, after which she quit smoking. Went through 2 cycles of chemo radiation following up with Dr.Fowler MARTINEZ, she also continues to follow-up with oncology in [place] we will get records. Will complete 5 years of the chemo and radiation, will get records , can go back to work in 10/2022 CT lung updated through oncology, will get records through [place]. LN of right breast: Present on mammogram of the right breast, breasts are heterogeneously dense, which may obscure small masses. Persistent 4.2 mm well-defined nodule in the deep slightly upper central portion of the right breast. No sonographic abnormality is seen. Mammogram was repeated in November [address] [facility] with oncology and came back normal. We will get records. Past Medical History: Diagnosis Date Adverse effect of radiation therapy 2018 [facility]/John Mattson MD Cancer of base of tongue (HCC) 2018 John Mattson MD Depression with anxiety 2014 Dr. Hammer Encounter for insertion of venous access port 10/14/2017 [facility]/Judd Concepcion MD Fatigue 2017 [facility]/Judd Concepcion MD History of colon polyps Info Gained From: 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) 09/28/2017 DL with Biopsy of BOT Mass-Dr Gaitan Tinnitus, right ear 2018 [facility]/John Mattson MD Chemo/XRT Past Surgical History: Procedure Laterality Date SECTION, CLASSIC CHOLECYSTECTOMY [facility] ENDOSCOPY TRIPLE 09/23/2017 & 10/04/2017 [facility]/Judd Concepcion MD Tumor mapping EXCISION LESION HEAD/NECK Right 09/16/2017 [facility] Send in Lab/Glenroy Gaitan MD 4cm HYSTERECTOMY 1995 Has one ovary LARYNGOSCOPY W/ LESION EXCISION Right 09/23/2017 Laryngoscopy with Biopsy of right base of tongue mass modified barium swallow 05/21/2018 NODE BIOPSY NECK 09/16/2017 Dr Gaitan ENT PEG TUBE PLACEMENT 10/04/2017 Dr Pascal PORT REMOVAL 07/03/2018 Dr Judd Concepcion-[place] [facility] PORTACATH PLACEMENT 2018 TONGUE BIOPSY 09/26/2017 Dr Gaitan- DL with biopsy of BOT Mass VASCULAR SURGERY Left 2017 Port placement-Left Chest - Dr. 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 Weight as of this encounter: 83.9 kg (185 lb). Physical Exam Constitutional: General: She is not in acute distress. Appearance: She is not ill-appearing. HENT: Head: Normocephalic and atraumatic. Eyes: Extraocular Movements: Extraocular movements intact. Conjunctiva/sclera: Conjunctivae normal. Pupils: Pupils are equal, round, and reactive to light. Cardiovascular: Rate and Rhythm: Normal rate and regular rhythm. Pulses: Normal pulses. Heart sounds: Normal heart sounds. No murmur heard. No gallop. Pulmonary: Effort: Pulmonary effort is normal. Breath sounds: Normal breath sounds. No wheezing, rhonchi or rales. Chest: Chest wall: No tenderness. Abdominal: General: Abdomen is flat. Bowel sounds are normal. There is no distension. Palpations: Abdomen is soft. There is no mass. Tenderness: There is no abdominal tenderness. There is no right CVA tenderness, left CVA tenderness, guarding or rebound. Musculoskeletal: General: No tenderness. Normal range of motion. Cervical back: Normal range of motion and neck supple. No rigidity. No muscular tenderness. Right lower leg: No edema. Left lower leg: No edema. Lymphadenopathy: Cervical: No cervical adenopathy. Skin: General: Skin is warm. Findings: No erythema or rash. Neurological: General: No focal deficit present. Mental Status: She is alert and oriented to person, place, and time. Sensory: No sensory deficit. Motor: No weakness. Gait: Gait normal. Psychiatric: Mood and Affect: Mood normal. Behavior: Behavior normal. Thought Content: Thought content normal. Judgment: Judgment normal. OARRS/NARxCHECK Report Received and Assessed: 09/05/2020 Date controlled substance agreement signed: 09/05/2020 Date of last drug screen: No data found Functional Assessment: No data found @Exam@ PHQ9: [id number] Tobacco Counseling: Counseling given: Not Answered Patient's Medications New Prescriptions No medications on file Previous Medications BUSPIRONE (BUSPAR) 30 MG TABLET Take 1 (one) tablet (30 mg total) by mouth 2 (two) times a day . CYCLOBENZAPRINE (FLEXERIL) 10 MG TABLET Take 1 (one) tablet (10 mg total) by mouth 2 (two) times a day as needed for muscle spasms (neck pain) . DULOXETINE (CYMBALTA) 60 MG CAPSULE Take 1 (one) capsule (60 mg total) by mouth 2 (two) times a day . FLU VAC QV 2021,18YR UP,RCM-PF (FLUBLOK QUAD) SYRINGE Sign this order in conjunction with the immunization order to satisfy [place] Board [employer] Pharmacy Positive ID requirements for immunization orders. . LEVOTHYROXINE (SYNTHROID, LEVOTHROID) 100 MCG TABLET Take 1 (one) tablet (100 mcg total) by mouth once daily . LINACLOTIDE (LINZESS) 145 MCG CAP Take 1 (one) capsule (145 mcg total) by mouth daily . MULTIVITAMIN (THERAGRAN) PER TABLET Take 1 (one) tablet by mouth daily . PENTOXIFYLLINE (TRENTAL) 400 MG CR TABLET Take 1 (one) tablet (400 mg total) by mouth 3 (three) times a day with meals . PILOCARPINE (SALAGEN) 5 MG TABLET Take 1 (one) tablet (5 mg total) by mouth 3 (three) times a day . TRAZODONE (DESYREL) 50 MG TABLET Take 1 (one) tablet (50 mg total) by mouth nightly . VITAMIN B COMPLEX (B COMPLEX-VITAMIN B12 ORAL) Take 1 tablet by mouth daily . VITAMIN E 1000 UNIT CAPSULE TAKE 1 CAPSULE BY MOUTH ONCE DAILY FOR FIBROSIS Modified Medications No medications on file Discontinued Medications No medications on file Health Maintenance Due Topic Date Due COVID-19 Vaccine (1) Never done Mammogram 11/03/20[address] Low-dose [address] Lung Cancer Screen 11/28/2022 Sequential Influenza Vaccine (1) 01/25/2023 Assessment & Plan Problem List Items Addressed This Visit Digestive IBS (irritable bowel syndrome) On Linzess refilled by Dr. Dowling Malignant neoplasm of base of tongue (HCC) - Primary Went through chemo radiation following up with ENT, she also continues to follow-up with oncology in [place] we will get records, will graduate completing 5 years in October 2022 and will follow-up annually with oncology, will get records. Relevant Orders CBC and Differential Endocrine Hypothyroidism (acquired) TFTs within normal limits, will continue with levothyroxine 100 mcg. Recheck TFTs today Relevant Orders TSH with Reflex Free T4 Comprehensive Metabolic Panel Other Abnormal mammogram Getting annual mammogram with oncology, we will get records. Other Visit Diagnoses Healthcare maintenance Relevant Orders Lipid Panel Return in about 1 year (around 02/01/2024) for Annual Exam. Counseled about vaccination including COVID, flu and RSV, interested in getting the flu shot, will schedule a nurse visit to get it sometime later this month. ISIDRO WAKEFIELD MD [facility] [address] [facility] [address] [facility] [address] Dept: [phone] documented in this encounter [facility] 09-21-2022 Telephone encounter Note Last OV 07/27/22. Next OV 01/31/23. OARRS report reviewed and scanned to chart for provider review. Pt does not have CSA on file for Trazodone or Flexeril. [facility] 09-21-2022 Miscellaneous Notes Last OV 07/27/22. Next OV 01/31/23. OARRS report reviewed and scanned to chart for provider review. Pt does not have CSA on file for Trazodone or Flexeril. ----- Message from Gayle Collado sent at 09/21/2022 4:02 PM EDT ----- Regarding: rx refill MEDICATION REFILL REQUEST: PCP: Isidro Wakefield MD Patient called 09/21/22 and is requesting a medication refill for levothyroxine (SYNTHROID, LEVOTHROID) 100 MCG tablet cyclobenzaprine (FLEXERIL) 10 MG tablet traZODone (DESYREL) 50 MG tablet. This was confirmed from the current medication list found in the patients chart. Supply Requested: # of days: 90 days Method of receiving: Send to pharmacy Last set of flowsheet rows for OARRS report: OARRS/NARxCHECK Report Received and Assessed: 09/05/2020 Date controlled substance agreement signed: 09/05/2020 Date of last drug screen: No data found Functional Assessment: No data found Will this refill be sent to the preferred pharmacy listed below? Yes Preferred pharmacies: [facility] [address] [place] [address] Pt Call Back Number Work Phone Not on file. Patient call back message sent to the primary care clinical pool. Gayle Collado documented in this encounter [facility] 09-21-2022 Telephone encounter Note ----- Message from Gayle Collado sent at 09/21/2022 4:02 PM EDT ----- Regarding: rx refill MEDICATION REFILL REQUEST: PCP: Isidro Wakefield MD Patient called 09/21/22 and is requesting a medication refill for levothyroxine (SYNTHROID, LEVOTHROID) 100 MCG tablet cyclobenzaprine (FLEXERIL) 10 MG tablet traZODone (DESYREL) 50 MG tablet. This was confirmed from the current medication list found in the patients chart. Supply Requested: # of days: 90 days Method of receiving: Send to pharmacy Last set of flowsheet rows for OARRS report: OARRS/NARxCHECK Report Received and Assessed: 09/05/2020 Date controlled substance agreement signed: 09/05/2020 Date of last drug screen: No data found Functional Assessment: No data found Will this refill be sent to the preferred pharmacy listed below? Yes Preferred pharmacies: [facility] [address] [place] [id number] Pt Call Back Number Work Phone Not on file. Patient call back message sent to the primary care clinical pool. Gayle Collado [facility] 08-06-2022 History of Present illness Narrative JIMENEZ Russell MA Please get records from oncology in [place] and Dr.Thomae Dr. Martin is in care everywhere. I did get records from Dr. Dowling and scanned them into the chart. Chief Complaint Patient presents with Follow-up 6 mon fu HPI: Fco Garnett is 51 y.o. female presenting today to for routine check. Former patient of Kirstiemarta Hines. Has PMH of anxiety/depression, hypothyroidism, tongue squamous cell carcinoma, fatigue, former smoker and Anxiety/depression: Patient is currently on Cymbalta 60 mg twice a day. She is also on Buspar 30 mg twice daily, she is doing great on her current medication combination is in the process of going back to workforce and is wondering if that goes well that she can wean herself off some of the medications.. Patient is also on Trazodone 50 mg nightly and this is helping her sleep. Hypothyroidism: Was diagnosed with throat cancer in 2019 and when she finisher treatment noticed she had thyroid problems LEVOTHROID 100 MCG tablet, TFTs have been recently checked in May and was normal. Throat cancer: Was diagnosed back in August 2017, after which she quit smoking. Went through 2 cycles of chemo radiation following up with ENT, she also continues to follow-up with oncology in [place] we will get records. Will complete 5 years of the chemo and radiation, will get records , can go back to work in 10/2022 LN of right breast: Present on mammogram of the right breast, breasts are heterogeneously dense, which may obscure small masses. Persistent 4.2 mm well-defined nodule in the deep slightly upper central portion of the right breast. No sonographic abnormality is seen. A repeat mammogram in 6 months is recommended from May 2022. Past Medical History: Diagnosis Date Adverse effect of radiation therapy 2017 [facility]/John Mattson MD Cancer of base of tongue (HCC) 2017 John Mattson MD Depression with anxiety 2014 Dr. Hammer Encounter for insertion of venous access port 10/14/2017 [facility]/Judd Concepcoin MD Fatigue 2017 [facility]/Judd Concepcion MD History of colon polyps Info Gained From: 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) 09/28/2017 DL with Biopsy of BOT Mass-Dr Gaitan Tinnitus, right ear 2017 [facility]/John Mattson MD Chemo/XRT Past Surgical History: Procedure Laterality Date SECTION, CLASSIC CHOLECYSTECTOMY Yanet ENDOSCOPY TRIPLE 09/23/2017 & 10/04/2017 [facility]/Judd Concepcion MD Tumor mapping EXCISION LESION HEAD/NECK Right 09/16/2017 [facility]/Glenroy Gaitan MD 4cm HYSTERECTOMY 1995 Has one ovary LARYNGOSCOPY W/ LESION EXCISION Right 09/23/2017 Laryngoscopy with Biopsy of right base of tongue mass modified barium swallow 05/21/2018 NODE BIOPSY NECK 09/16/2017 Dr Gaitan ENT PEG TUBE PLACEMENT 10/04/2017 Dr Pascal PORT REMOVAL 07/03/2018 Dr Judd Concepcion-[facility] [facility] PORTACATH PLACEMENT 2018 TONGUE BIOPSY 09/26/2017 Dr Gaitan- MAX with biopsy of BOT Mass VASCULAR SURGERY Left 2017 Port placement-Left Chest - Dr. 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 Weight as of this encounter: 93 kg (205 lb). Physical Exam Constitutional: General: She is not in acute distress. Appearance: She is not ill-appearing. HENT: Head: Normocephalic and atraumatic. Eyes: Extraocular Movements: Extraocular movements intact. Conjunctiva/sclera: Conjunctivae normal. Pupils: Pupils are equal, round, and reactive to light. Cardiovascular: Rate and Rhythm: Normal rate and regular rhythm. Pulses: Normal pulses. Heart sounds: Normal heart sounds. No murmur heard. No gallop. Pulmonary: Effort: Pulmonary effort is normal. Breath sounds: Normal breath sounds. No wheezing, rhonchi or rales. Chest: Chest wall: No tenderness. Abdominal: General: Abdomen is flat. Bowel sounds are normal. There is no distension. Palpations: Abdomen is soft. There is no mass. Tenderness: There is no abdominal tenderness. There is no right CVA tenderness, left CVA tenderness, guarding or rebound. Musculoskeletal: General: No tenderness. Normal range of motion. Cervical back: Normal range of motion and neck supple. No rigidity. No muscular tenderness. Right lower leg: No edema. Left lower leg: No edema. Lymphadenopathy: Cervical: No cervical adenopathy. Skin: General: Skin is warm. Findings: No erythema or rash. Neurological: General: No focal deficit present. Mental Status: She is alert and oriented to person, place, and time. Sensory: No sensory deficit. Motor: No weakness. Gait: Gait normal. Psychiatric: Mood and Affect: Mood normal. Behavior: Behavior normal. Thought Content: Thought content normal. Judgment: Judgment normal. OARRS/NARxCHECK Report Received and Assessed: 09/05/2020 Date controlled substance agreement signed: 09/05/2020 Date of last drug screen: No data found Functional Assessment: No data found @Exam@ PHQ9: [id number] Tobacco Counseling: Counseling given: Not Answered Patient's Medications New Prescriptions No medications on file Previous Medications BUSPIRONE (BUSPAR) 30 MG TABLET Take 1 (one) tablet (30 mg total) by mouth 2 (two) times a day . CYCLOBENZAPRINE (FLEXERIL) 10 MG TABLET Take 1 (one) tablet (10 mg total) by mouth 2 (two) times a day as needed for muscle spasms (neck pain) . DULOXETINE (CYMBALTA) 60 MG CAPSULE Take 1 (one) capsule (60 mg total) by mouth 2 (two) times a day . FLU VAC QV 2021,18YR UP,RCM-PF (FLUBLOK QUAD) SYRINGE Sign this order in conjunction with the immunization order to satisfy [place] Board of Pharmacy Positive ID requirements for immunization orders. . LEVOTHYROXINE (SYNTHROID, LEVOTHROID) 100 MCG TABLET Take 1 (one) tablet (100 mcg total) by mouth once daily . LINACLOTIDE (LINZESS) 145 MCG CAP Take 1 (one) capsule (145 mcg total) by mouth daily . MULTIVITAMIN (THERAGRAN) PER TABLET Take 1 (one) tablet by mouth daily . PENTOXIFYLLINE (TRENTAL) 400 MG CR TABLET Take 1 (one) tablet (400 mg total) by mouth 3 (three) times a day with meals . PILOCARPINE (SALAGEN) 5 MG TABLET Take 1 (one) tablet (5 mg total) by mouth 3 (three) times a day . PNEUMOCOCCAL CONJ. 20-VALENT (PREVNAR 20) 0.5 ML VACCINE Inject 0.5 mL into the shoulder, thigh, or buttocks Sign this order in conjunction with the immunization order to satisfy [place] Board of Pharmacy Positive ID requirements for immunization orders . TRAZODONE (DESYREL) 50 MG TABLET Take 1 (one) tablet (50 mg total) by mouth nightly . VITAMIN B COMPLEX (B COMPLEX-VITAMIN B12 ORAL) Take 1 tablet by mouth daily . VITAMIN E 1000 UNIT CAPSULE TAKE 1 CAPSULE BY MOUTH ONCE DAILY FOR FIBROSIS Modified Medications No medications on file Discontinued Medications DOCUSATE SODIUM (COLACE) 100 MG CAPSULE Take 2 (two) capsules (200 mg total) by mouth 3 (three) times a day as needed for constipation . FLORAJEN ACIDOPHILUS 20 BILLION CELL CAP Take one capsule by mouth in the morning. . FLUTICASONE PROPIONATE (FLONASE) 50 MCG/ACTUATION NASAL SPRAY Instill 2 (two) sprays into each nostril daily . LINZESS 145 MCG CAP Take 1 (one) capsule (145 mcg total) by mouth daily . PLECANATIDE (TRULANCE) 3 MG TAB Take 1 (one) tablet (3 mg total) by mouth daily . POLYETHYLENE GLYCOL (MIRALAX) 17 GRAM POWDER Take 17 (seventeen) g by mouth daily as needed (constipation) . Health Maintenance Due Topic Date Due COVID-19 Vaccine (1) Never done Assessment & Plan Problem List Items Addressed This Visit Digestive IBS (irritable bowel syndrome) Currently on Linzess which seems to work well for her constipation, following up with GI with Dr. Dowling. Malignant neoplasm of base of tongue (HCC) Went through chemo radiation following up with ENT, she also continues to follow-up with oncology in [place] we will get records, will graduate completing 5 years in October 2022 and will follow-up annually with oncology, will get records. Endocrine Hypothyroidism (acquired) TFTs have been done last month and was within normal limits, continue with levothyroxine 100 mcg. Other Depression with anxiety Stable on anxiety and depression medications with Cymbalta 120 mg as well as BuSpar 30 mg twice daily. We will continue to monitor and see if patient is still interested in weaning and tapering down after she starts working and follow-up in 3 to 6 months Abnormal mammogram Persistent 4.2 mm well-defined nodule in the deep slightly upper central portion of the right breast. No sonographic abnormality is seen. A repeat mammogram in 6 months is recommended from May 2022. Other Visit Diagnoses Encounter for immunization - Primary Relevant Medications pneumococcal conj. 20-valent (PREVNAR 20) 0.5 mL vaccine Other Relevant Orders Pneumococcal conjugate vaccine 20-valent (Completed) Return in about 6 months (around 01/27/2023) for Follow Up. ISIDRO WAKEFIELD MD [facility] [address] [facility] [address] [facility] [address] Dept: [phone] documented in this encounter [facility] 07-27-2022 Evaluation + Plan note Associated Problem(s): Depression with anxiety Stable on anxiety and depression medications with Cymbalta 120 mg as well as BuSpar 30 mg twice daily. We will continue to monitor and see if patient is still interested in weaning and tapering down after she starts working and follow-up in 3 to 6 months [facility] 07-27-2022 Evaluation + Plan note Associated Problem(s): IBS (irritable bowel syndrome) Currently on Linzess which seems to work well for her constipation, following up with GI with Dr. Dowling. [facility] 07-27-2022 Miscellaneous Notes Associated Problem(s): Depression with anxiety Stable on anxiety and depression medications with Cymbalta 120 mg as well as BuSpar 30 mg twice daily. We will continue to monitor and see if patient is still interested in weaning and tapering down after she starts working and follow-up in 3 to 6 months Associated Problem(s): IBS (irritable bowel syndrome) Currently on Linzess which seems to work well for her constipation, following up with GI with Dr. Dowling. Associated Problem(s): Abnormal mammogram Persistent 4.2 mm well-defined nodule in the deep slightly upper central portion of the right breast. No sonographic abnormality is seen. A repeat mammogram in 6 months is recommended from May 2022. Associated Problem(s): Hypothyroidism (acquired) TFTs have been done last month and was within normal limits, continue with levothyroxine 100 mcg. Associated Problem(s): Malignant neoplasm of base of tongue (HCC) Went through chemo radiation following up with ENT, she also continues to follow-up with oncology in [place] we will get records, will graduate completing 5 years in October 2022 and will follow-up annually with oncology, will get records. documented in this encounter [facility] 07-27-2022 Miscellaneous Notes Associated Problem(s): Depression with anxiety Stable on anxiety and depression medications with Cymbalta 120 mg as well as BuSpar 30 mg twice daily. We will continue to monitor and see if patient is still interested in weaning and tapering down after she starts working and follow-up in 3 to 6 months Associated Problem(s): IBS (irritable bowel syndrome) Currently on Linzess which seems to work well for her constipation, following up with GI with Dr. Dowling. Associated Problem(s): Abnormal mammogram Persistent 4.2 mm well-defined nodule in the deep slightly upper central portion of the right breast. No sonographic abnormality is seen. A repeat mammogram in 6 months is recommended from May 2022. Associated Problem(s): Hypothyroidism (acquired) TFTs have been done last month and was within normal limits, continue with levothyroxine 100 mcg. Associated Problem(s): Malignant neoplasm of base of tongue (HCC) Went through chemo radiation following up with Dr.Fowler MARTINEZ, she also continues to follow-up with oncology in [place] we will get records, will graduate completing 5 years in October 2022 and will follow-up annually with oncology, will get records. documented in this encounter [facility] 07-27-2022 Evaluation + Plan note Associated Problem(s): Abnormal mammogram Persistent 4.2 mm well-defined nodule in the deep slightly upper central portion of the right breast. No sonographic abnormality is seen. A repeat mammogram in 6 months is recommended from May 2022. [facility] 07-27-2022 Evaluation + Plan note Associated Problem(s): Hypothyroidism (acquired) TFTs have been done last month and was within normal limits, continue with levothyroxine 100 mcg. [facility] 07-27-2022 Evaluation + Plan note Associated Problem(s): Malignant neoplasm of base of tongue (HCC) Went through chemo radiation following up with Dr.Fowler MARTINEZ, she also continues to follow-up with oncology in [place] we will get records, will graduate completing 5 years in October 2022 and will follow-up annually with oncology, will get records. [facility] 07-27-2022 History of Present illness Narrative Chief Complaint Patient presents with Follow-up 6 mon fu HPI: Fco Garnett is 51 y.o. female presenting today to for routine check. Former patient of Kirstie Spring. Has PMH of anxiety/depression, hypothyroidism, tongue squamous cell carcinoma, fatigue, former smoker and Anxiety/depression: Patient is currently on Cymbalta 60 mg twice a day. She is also on Buspar 30 mg twice daily, she is doing great on her current medication combination is in the process of going back to workforce and is wondering if that goes well that she can wean herself off some of the medications.. Patient is also on Trazodone 50 mg nightly and this is helping her sleep. Hypothyroidism: Was diagnosed with throat cancer in 2018 and when she finisher treatment noticed she had thyroid problems LEVOTHROID 100 MCG tablet, TFTs have been recently checked in May and was normal. Throat cancer: Was diagnosed back in August 2017, after which she quit smoking. Went through 2 cycles of chemo radiation following up with Dr.Fowler MARTINEZ, she also continues to follow-up with oncology in [place] we will get records. Will complete 5 years of the chemo and radiation, will get records , can go back to work in 10/2022 LN of right breast: Present on mammogram of the right breast, breasts are heterogeneously dense, which may obscure small masses. Persistent 4.2 mm well-defined nodule in the deep slightly upper central portion of the right breast. No sonographic abnormality is seen. A repeat mammogram in 6 months is recommended from May 2022. Past Medical History: Diagnosis Date Adverse effect of radiation therapy 2018 [facility]/John Mattson MD Cancer of base of tongue (HCC) 2018 John aMttson MD Depression with anxiety 2014 Dr. Hammer Encounter for insertion of venous access port 10/14/2017 [facility]/Judd Concepcion MD Fatigue 2018 [facility]/Judd Concepcion MD History of colon polyps Info Gained From: 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) 09/28/2017 DL with Biopsy of BOT Mass-Dr Gaitan Tinnitus, right ear 2018 [facility]/John Mattson MD Chemo/XRT Past Surgical History: Procedure Laterality Date SECTION, CLASSIC CHOLECYSTECTOMY [facility]et ENDOSCOPY TRIPLE 09/23/2017 & 10/04/2017 [facility]/Judd Concepcion MD Tumor mapping EXCISION LESION HEAD/NECK Right 09/16/2017 [facility] Send in [facility]/Glenroy Gaitan MD 4cm HYSTERECTOMY 1995 Has one ovary LARYNGOSCOPY W/ LESION EXCISION Right 09/23/2017 Laryngoscopy with Biopsy of right base of tongue mass modified barium swallow 05/21/2018 NODE BIOPSY NECK 09/16/2017 Dr Gaitan ENT PEG TUBE PLACEMENT 10/04/2017 Dr Pascal PORT REMOVAL 07/03/2018 Dr Judd Concepcion-[facility] PORTACATH PLACEMENT 2018 TONGUE BIOPSY 09/26/2017 Dr Gaitan- DL with biopsy of BOT Mass VASCULAR SURGERY Left 2017 Port placement-Left Chest - Dr. 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 Weight as of this encounter: 93 kg (205 lb). Physical Exam Constitutional: General: She is not in acute distress. Appearance: She is not ill-appearing. HENT: Head: Normocephalic and atraumatic. Eyes: Extraocular Movements: Extraocular movements intact. Conjunctiva/sclera: Conjunctivae normal. Pupils: Pupils are equal, round, and reactive to light. Cardiovascular: Rate and Rhythm: Normal rate and regular rhythm. Pulses: Normal pulses. Heart sounds: Normal heart sounds. No murmur heard. No gallop. Pulmonary: Effort: Pulmonary effort is normal. Breath sounds: Normal breath sounds. No wheezing, rhonchi or rales. Chest: Chest wall: No tenderness. Abdominal: General: Abdomen is flat. Bowel sounds are normal. There is no distension. Palpations: Abdomen is soft. There is no mass. Tenderness: There is no abdominal tenderness. There is no right CVA tenderness, left CVA tenderness, guarding or rebound. Musculoskeletal: General: No tenderness. Normal range of motion. Cervical back: Normal range of motion and neck supple. No rigidity. No muscular tenderness. Right lower leg: No edema. Left lower leg: No edema. Lymphadenopathy: Cervical: No cervical adenopathy. Skin: General: Skin is warm. Findings: No erythema or rash. Neurological: General: No focal deficit present. Mental Status: She is alert and oriented to person, place, and time. Sensory: No sensory deficit. Motor: No weakness. Gait: Gait normal. Psychiatric: Mood and Affect: Mood normal. Behavior: Behavior normal. Thought Content: Thought content normal. Judgment: Judgment normal. OARRS/NARxCHECK Report Received and Assessed: 09/05/2020 Date controlled substance agreement signed: 09/05/2020 Date of last drug screen: No data found Functional Assessment: No data found @Exam@ PHQ9: [id number] Tobacco Counseling: Counseling given: Not Answered Patient's Medications New Prescriptions No medications on file Previous Medications BUSPIRONE (BUSPAR) 30 MG TABLET Take 1 (one) tablet (30 mg total) by mouth 2 (two) times a day . CYCLOBENZAPRINE (FLEXERIL) 10 MG TABLET Take 1 (one) tablet (10 mg total) by mouth 2 (two) times a day as needed for muscle spasms (neck pain) . DULOXETINE (CYMBALTA) 60 MG CAPSULE Take 1 (one) capsule (60 mg total) by mouth 2 (two) times a day . FLU VAC QV 2021,18YR UP,RCM-PF (FLUBLOK QUAD) SYRINGE Sign this order in conjunction with the immunization order to satisfy [facility] of Pharmacy Positive ID requirements for immunization orders. . LEVOTHYROXINE (SYNTHROID, LEVOTHROID) 100 MCG TABLET Take 1 (one) tablet (100 mcg total) by mouth once daily . LINACLOTIDE (LINZESS) 145 MCG CAP Take 1 (one) capsule (145 mcg total) by mouth daily . MULTIVITAMIN (THERAGRAN) PER TABLET Take 1 (one) tablet by mouth daily . PENTOXIFYLLINE (TRENTAL) 400 MG CR TABLET Take 1 (one) tablet (400 mg total) by mouth 3 (three) times a day with meals . PILOCARPINE (SALAGEN) 5 MG TABLET Take 1 (one) tablet (5 mg total) by mouth 3 (three) times a day . PNEUMOCOCCAL CONJ. 20-VALENT (PREVNAR 20) 0.5 ML VACCINE Inject 0.5 mL into the shoulder, thigh, or buttocks Sign this order in conjunction with the immunization order to satisfy [place] Board Pharmacy Positive ID requirements for immunization orders . TRAZODONE (DESYREL) 50 MG TABLET Take 1 (one) tablet (50 mg total) by mouth nightly . VITAMIN B COMPLEX (B COMPLEX-VITAMIN B12 ORAL) Take 1 tablet by mouth daily . VITAMIN E 1000 UNIT CAPSULE TAKE 1 CAPSULE BY MOUTH ONCE DAILY FOR FIBROSIS Modified Medications No medications on file Discontinued Medications DOCUSATE SODIUM (COLACE) 100 MG CAPSULE Take 2 (two) capsules (200 mg total) by mouth 3 (three) times a day as needed for constipation . FLORAJEN ACIDOPHILUS 20 BILLION CELL CAP Take one capsule by mouth in the morning. . FLUTICASONE PROPIONATE (FLONASE) 50 MCG/ACTUATION NASAL SPRAY Instill 2 (two) sprays into each nostril daily . LINZESS 145 MCG CAP Take 1 (one) capsule (145 mcg total) by mouth daily . PLECANATIDE (TRULANCE) 3 MG TAB Take 1 (one) tablet (3 mg total) by mouth daily . POLYETHYLENE GLYCOL (MIRALAX) 17 GRAM POWDER Take 17 (seventeen) g by mouth daily as needed (constipation) . Health Maintenance Due Topic Date Due COVID-19 Vaccine (1) Never done Assessment & Plan Problem List Items Addressed This Visit Digestive IBS (irritable bowel syndrome) Currently on Linzess which seems to work well for her constipation, following up with GI with Dr. Dowling. Malignant neoplasm of base of tongue (HCC) Went through chemo radiation following up with ENT, she also continues to follow-up with oncology in [place] we will get records, will graduate completing 5 years in October 2022 and will follow-up annually with oncology, will get records. Endocrine Hypothyroidism (acquired) TFTs have been done last month and was within normal limits, continue with levothyroxine 100 mcg. Other Depression with anxiety Stable on anxiety and depression medications with Cymbalta 120 mg as well as BuSpar 30 mg twice daily. We will continue to monitor and see if patient is still interested in weaning and tapering down after she starts working and follow-up in 3 to 6 months Abnormal mammogram Persistent 4.2 mm well-defined nodule in the deep slightly upper central portion of the right breast. No sonographic abnormality is seen. A repeat mammogram in 6 months is recommended from May 2022. Other Visit Diagnoses Encounter for immunization - Primary Relevant Medications pneumococcal conj. 20-valent (PREVNAR 20) 0.5 mL vaccine Other Relevant Orders Pneumococcal conjugate vaccine 20-valent (Completed) Return in about 6 months (around 01/27/2023) for Follow Up. ISIDRO WAKEFIELD MD [facility] [address] [facility] [address] [facility] [address] Dept: [phone] documented in this encounter [facility] 06-26-2022 Telephone encounter Note Last OV 01/30/22. Next OV 07/27/22. [facility] 06-26-2022 Miscellaneous Notes Last OV 01/30/22. Next OV 07/27/22. ----- Message from Alida Chapa sent at 06/26/2022 9:45 AM EST ----- Regarding: Rx refill Contact: Fco/self MEDICATION REFILL REQUEST: Pt said that the pharmacy does not have anymore of file for her. Pt needs this sent to [facility]. PCP: Isidro Wakefield MD Patient called 06/26/22 and is requesting a medication refill for traZODone (DESYREL) 50 MG [id number]// Sig - Route: Take 1 (one) tablet (50 mg total) by mouth nightly . - Oral Sent to pharmacy as: traZODone 50 mg tablet (DESYREL) E-Prescribing Status: Receipt confirmed by pharmacy (09/14/2021 10:35 AM EDT) . busPIRone (BUSPAR) 30 MG [id number] [id number]/28// Sig - Route: Take 1 (one) tablet (30 mg total) by mouth 2 (two) times a day . - Oral Sent to pharmacy as: busPIRone 30 mg tablet (BUSPAR) E-Prescribing Status: Receipt confirmed by pharmacy (08/21/2021 11:26 AM EDT) This was confirmed from the current medication list found in the patients chart. Supply Requested: # of days: 90 days Method of receiving: Send to pharmacy Last set of flowsheet rows for OARRS report: OARRS/NARxCHECK Report Received and Assessed: 09/05/2020 Date controlled substance agreement signed: 09/05/2020 Date of last drug screen: No data found Functional Assessment: No data found Will this refill be sent to the preferred pharmacy listed below? Yes Preferred pharmacies: [facility] [address] [place] [address] [address] [facility] [address] [place] [id number] Pt Call Back Number Patient call back message sent to the primary care clinical pool. Alida Chapa documented in this encounter [facility] 06-26-2022 Telephone encounter Note ----- Message from Alida Chapa sent at 06/26/2022 9:45 AM EST ----- Regarding: Rx refill Contact: Fco/self MEDICATION REFILL REQUEST: Pt said that the pharmacy does not have anymore of file for her. Pt needs this sent to [facility]. PCP: Isidro Wakefield MD Patient called 06/26/22 and is requesting a medication refill for traZODone (DESYREL) 50 MG [id number]/ Sig - Route: Take 1 (one) tablet (50 mg total) by mouth nightly . - Oral Sent to pharmacy as: traZODone 50 mg tablet (DESYREL) E-Prescribing Status: Receipt confirmed by pharmacy (09/14/2021 10:35 AM EDT) . busPIRone (BUSPAR) 30 MG [id number] Sig - Route: Take 1 (one) tablet (30 mg total) by mouth 2 (two) times a day . - Oral Sent to pharmacy as: busPIRone 30 mg tablet (BUSPAR) E-Prescribing Status: Receipt confirmed by pharmacy (08/21/2021 11:26 AM EDT) This was confirmed from the current medication list found in the patients chart. Supply Requested: # of days: 90 days Method of receiving: Send to pharmacy Last set of flowsheet rows for OARRS report: OARRS/NARxCHECK Report Received and Assessed: 09/05/2020 Date controlled substance agreement signed: 09/05/2020 Date of last drug screen: No data found Functional Assessment: No data found Will this refill be sent to the preferred pharmacy listed below? Yes Preferred pharmacies: [facility] [address] [place] [address] [address] [facility] [address] [facility] [id number] Pt Call Back Number Patient call back message sent to the primary care clinical pool. Alida Chapa [facility] 04-04-2022 Telephone encounter Note Flexeril [facility] 04-04-2022 Miscellaneous Notes Flexeril What is the medication that needs refill? documented in this encounter [facility] 04-03-2022 Telephone encounter Note What is the medication that needs refill? [facility] 01-30-2022 Evaluation + Plan note Associated Problem(s): Depression with anxiety Stable on current dose of Cymbalta 60 mg twice daily and BuSpar 10 mg that she takes up to 3 times a day, stable on 30 mg once daily at this time. [facility] 01-30-2022 Miscellaneous Notes Associated Problem(s): Depression with anxiety Stable on current dose of Cymbalta 60 mg twice daily and BuSpar 10 mg that she takes up to 3 times a day, stable on 30 mg once daily at this time. Associated Problem(s): Secondary and unspecified malignant neoplasm of lymph node, unspecified (HCC) Diagnosed on mammogram the right breast, no records of that at this time. Closely followed up by oncology in [place], we will obtain records and continue to monitor. Associated Problem(s): Hypothyroidism (acquired) Diagnosed back in 2018. Currently stable on levothyroxine 100 mcg. Check TFTs with next set of labs, patient agreeable Associated Problem(s): Malignant neoplasm of base of tongue (HCC) Went through 2 cycles of chemo radiation following up with Dr.Fowler MARTINEZ, she also continues to follow-up with oncology in [place] we will get records. Associated Problem(s): IBS (irritable bowel syndrome) Following up with Dr. Dowling, predominantly constipation. Currently stable on Trulance, failed Linzess in the past. Continue to monitor. documented in this encounter [facility] 01-30-2022 Evaluation + Plan note Associated Problem(s): Secondary and unspecified malignant neoplasm of lymph node, unspecified (HCC) Diagnosed on mammogram the right breast, no records of that at this time. Closely followed up by oncology in [place], we will obtain records and continue to monitor. [facility] 01-30-2022 Evaluation + Plan note Associated Problem(s): Hypothyroidism (acquired) Diagnosed back in 2018. Currently stable on levothyroxine 100 mcg. Check TFTs with next set of labs, patient agreeable [facility] 01-30-2022 Evaluation + Plan note Associated Problem(s): Malignant neoplasm of base of tongue (HCC) Went through 2 cycles of chemo radiation following up with ENT, she also continues to follow-up with oncology in [place] we will get records. [facility] 01-30-2022 Evaluation + Plan note Associated Problem(s): IBS (irritable bowel syndrome) Following up with Dr. Dowling, predominantly constipation. Currently stable on Trulance, failed Linzess in the past. Continue to monitor. [facility] 01-30-2022 History of Present illness Narrative Faxed for records Dr. Goode,Dr. Pascal [phone] Chief Complaint Patient presents with Follow-up [facility] pt. 4 month f/u, Lab work?, Bruising HPI: Fco Garnett is 51-year-old female [facility] Former patient of [facility]. Has PMH of anxiety/depression, hypothyroidism, tongue squamous cell carcinoma, fatigue, former smoker and Bruising: Mainly for the past 2-3 weeks since she got back from [place], sometimes they just pop on her body without any previous trauma. Sometimes painful. No associated nose bleeds and gums bleeding has dentures. Anxiety/depression: Patient is currently on Cymbalta 60 mg twice a day. She is also on Buspar 10 mg, she is taking this up to 3 x a day most days and her anxiety still does not feel well controlled. She has a lot of stress in her life related to her children. Patient is also on Trazodone 50 mg nightly and this is helping her sleep. Hypothyroidism: Was diagnosed with throat cancer in 2019 and when she finisher treatment noticed she had thyroid problems LEVOTHROID 100 MCG tablet Throat cancer: Was diagnosed back in August 2017, after which she quit smoking. Went through 2 cycles of chemo radiation following up with ENT, she also continues to follow-up with oncology in [place] we will get records. LN of right breast: Present on mammogram of the right breast, was told to wait to repeat in 6 months and monitor growth. Past Medical History: Diagnosis Date Adverse effect of radiation therapy 2018 [facility]/John Mattson MD Cancer of base of tongue (HCC) 2018 John Mattson MD Depression with anxiety 2014 Dr. Hammer Encounter for insertion of venous access port 10/14/2017 [facility]/Judd Concepcion MD Fatigue 2017 [facility]/Judd Concepcion MD History of colon polyps Info Gained From: 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) 09/28/2017 DL with Biopsy of BOT Mass-Dr Gaitan Tinnitus, right ear 2018 [facility]/John Mattson MD Chemo/XRT Past Surgical History: Procedure Laterality Date SECTION, CLASSIC CHOLECYSTECTOMY [facility] ENDOSCOPY TRIPLE 09/23/2017 & 10/04/2017 [place] [facility]/Judd Concepcion MD Tumor mapping EXCISION LESION HEAD/NECK Right 09/16/2017 [facility] Send in Lab/Glenroy Gaitan MD 4cm HYSTERECTOMY 1995 Has one ovary LARYNGOSCOPY W/ LESION EXCISION Right 09/23/2017 Laryngoscopy with Biopsy of right base of tongue mass modified barium swallow 05/21/2018 NODE BIOPSY NECK 09/16/2017 Dr Gaitan ENT PEG TUBE PLACEMENT 10/04/2017 Dr Pascal PORT REMOVAL 07/03/2018 Dr Judd Concepcion[facility] PORTACATH PLACEMENT 2018 TONGUE BIOPSY 09/26/2017 Dr Gaitan- DL with biopsy of BOT Mass VASCULAR SURGERY Left 2017 Port placement-Left Chest - Dr. 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 Weight as of this encounter: 81.6 kg (180 lb). Physical Exam Constitutional: General: She is not in acute distress. Appearance: She is not ill-appearing. HENT: Head: Normocephalic and atraumatic. Eyes: Extraocular Movements: Extraocular movements intact. Conjunctiva/sclera: Conjunctivae normal. Pupils: Pupils are equal, round, and reactive to light. Cardiovascular: Rate and Rhythm: Normal rate and regular rhythm. Pulses: Normal pulses. Heart sounds: Normal heart sounds. No murmur heard. No gallop. Pulmonary: Effort: Pulmonary effort is normal. Breath sounds: Normal breath sounds. No wheezing, rhonchi or rales. Chest: Chest wall: No tenderness. Abdominal: General: Abdomen is flat. Bowel sounds are normal. There is no distension. Palpations: Abdomen is soft. There is no mass. Tenderness: There is no abdominal tenderness. There is no right CVA tenderness, left CVA tenderness, guarding or rebound. Musculoskeletal: General: No tenderness. Normal range of motion. Cervical back: Normal range of motion and neck supple. No rigidity. No muscular tenderness. Right lower leg: No edema. Left lower leg: No edema. Lymphadenopathy: Cervical: No cervical adenopathy. Skin: General: Skin is warm. Findings: No erythema or rash. Neurological: General: No focal deficit present. Mental Status: She is alert and oriented to person, place, and time. Sensory: No sensory deficit. Motor: No weakness. Gait: Gait normal. Psychiatric: Mood and Affect: Mood normal. Behavior: Behavior normal. Thought Content: Thought content normal. Judgment: Judgment normal. OARRS/NARxCHECK Report Received and Assessed: 09/05/2020 Date controlled substance agreement signed: 09/05/2020 Date of last drug screen: No data found Functional Assessment: No data found @Exam@ PHQ9: [id number]-7 Tobacco Counseling: Counseling given: Not Answered Patient's Medications New Prescriptions No medications on file Previous Medications BUSPIRONE (BUSPAR) 30 MG TABLET Take 1 (one) tablet (30 mg total) by mouth 2 (two) times a day . CYCLOBENZAPRINE (FLEXERIL) 10 MG TABLET Take 1 (one) tablet (10 mg total) by mouth 2 (two) times a day as needed for muscle spasms (neck pain) . DOCUSATE SODIUM (COLACE) 100 MG CAPSULE Take 200 mg by mouth 3 (three) times a day as needed for constipation . DULOXETINE (CYMBALTA) 60 MG CAPSULE Take 1 (one) capsule (60 mg total) by mouth 2 (two) times a day . FLORAJEN ACIDOPHILUS 20 BILLION CELL CAP Take one capsule by mouth in the morning. . FLUTICASONE PROPIONATE (FLONASE) 50 MCG/ACTUATION NASAL SPRAY Instill 2 (two) sprays into each nostril daily . LEVOTHYROXINE (SYNTHROID, LEVOTHROID) 100 MCG TABLET Take 1 (one) tablet (100 mcg total) by mouth once daily . LINZESS 145 MCG CAP Take 1 (one) capsule (145 mcg total) by mouth daily . MULTIVITAMIN (THERAGRAN) PER TABLET Take 1 tablet by mouth daily . PENTOXIFYLLINE (TRENTAL) 400 MG CR TABLET Take 400 mg by mouth 3 (three) times a day with meals . PILOCARPINE (SALAGEN) 5 MG TABLET Take 5 mg by mouth 3 (three) times a day . PLECANATIDE (TRULANCE) 3 MG TAB Take 1 (one) tablet (3 mg total) by mouth daily . POLYETHYLENE GLYCOL (MIRALAX) 17 GRAM POWDER Take 17 (seventeen) g by mouth daily as needed (constipation) . TRAZODONE (DESYREL) 50 MG TABLET Take 1 (one) tablet (50 mg total) by mouth nightly . VITAMIN B COMPLEX (B COMPLEX-VITAMIN B12 ORAL) Take 1 tablet by mouth daily . VITAMIN E 1000 UNIT CAPSULE TAKE 1 CAPSULE BY MOUTH ONCE DAILY FOR FIBROSIS Modified Medications No medications on file Discontinued Medications No medications on file Health Maintenance Due Topic Date Due Sequential Influenza Vaccine (1) 01/25/2022 Pneumococcal Vaccine: Ped or At-Risk (2 - PPSV23 or PCV20) 03/09/2022 Assessment & Plan Problem List Items Addressed This Visit Digestive IBS (irritable bowel syndrome) Following up with Dr. Dowling, predominantly constipation. Currently stable on Trulance, failed Linzess in the past. Continue to monitor. Malignant neoplasm of base of tongue (HCC) Went through 2 cycles of chemo radiation following up with ENT, she also continues to follow-up with oncology in [place] we will get records. Endocrine Hypothyroidism (acquired) - Primary Diagnosed back in 2019. Currently stable on levothyroxine 100 mcg. Check TFTs with next set of labs, patient agreeable Relevant Orders TSH with Reflex Free T4 Immune and Lymphatic Secondary and unspecified malignant neoplasm of lymph node, unspecified (HCC) Diagnosed on mammogram the right breast, no records of that at this time. Closely followed up by oncology in [place], we will obtain records and continue to monitor. Other Depression with anxiety Stable on current dose of Cymbalta 60 mg twice daily and BuSpar 10 mg that she takes up to 3 times a day, stable on 30 mg once daily at this time. Relevant Orders TSH with Reflex Free T4 Other Visit Diagnoses Bruising Relevant Orders CBC and Differential PT/INR APTT Obesity (BMI 30-39.9) Relevant Orders Hemoglobin A1c Lipid Panel Comprehensive Metabolic Panel Abnormal finding of blood chemistry, unspecified Relevant Orders Hemoglobin A1c I spent 40 minutes with patient reviewing HPI and coordinating plan of care Return in about 6 months (around 07/30/2022) for Follow Up. ISIDRO WAKEFIELD MD [facility] [address] [facility] [address] Dept: [phone] documented in this encounter [facility] 10-02-2021 Evaluation + Plan note Associated Problem(s): Depression with anxiety Continue current dose of Cymbalta, Buspar, and Trazodone. No changes. Call with any issues with these medications. [facility] 10-02-2021 Miscellaneous Notes Associated Problem(s): Depression with anxiety Continue current dose of Cymbalta, Buspar, and Trazodone. No changes. Call with any issues with these medications. documented in this encounter [facility] 10-02-2021 Instructions Kirstie Hines CNP - 10/02/2021 10:36 AM EDT Problem List Items Addressed This Visit Endocrine Hypothyroidism (acquired) Relevant Medications levothyroxine (SYNTHROID, LEVOTHROID) 100 MCG tablet Other Depression with anxiety Continue current dose of Cymbalta, Buspar, and Trazodone. No changes. Call with any issues with these medications. If any referrals were placed at the time of your visit please allow 2 weeks for processing. If you haven't heard from anyone within 2 weeks please contact my office so we can look into the status of your referral. If you were given any labs today please ensure they are completed according to the directions given. Once labs are completed please allow 1-2 weeks for us to receive the results, review them, and let you know what steps, if any, are needed next. If you haven't heard from us after that please call to inquire. If labs were ordered to be done PRIOR to your next visit we will discuss the results at the time of your office visit. If any procedures or imaging studies were ordered that must be prior authorized please give us 2 weeks to get them approved. Once approved someone should call you to schedule them or give you a date and time that they were scheduled for. If you haven't heard anything within 2 weeks of the office visit please call the office so we can look into their status. Customer Service/Billing Questions: [phone] [facility] Assistance: [phone] or [phone] Financial Assistance: [phone] or [phone] documented in this encounter [facility] 10-02-2021 History of Present illness Narrative Telephone Visit Via Phone Call [facility] [address] [facility] [address] [facility] [phone] Telephone Visit [facility] 10/02/2021 Kirstie Hines CNP Provider Location: [address] [place] [address] Patient Location Pulmonary Disease Specialist: None Patient Location: Patient's Home Patient: Fco Garnett Date of : 1970 (50 y.o. female) PCP: Isidro Wakefield MD I discussed risks, benefits and alternatives of a telephone visit telemedicine consultation with the patient (and any accompanying persons) including the risks that the patient's personal health details and medical records will be discussed over real-time, synchronous, interactive audio technology, the visit will not be recorded without the express consent of both the provider and the patient, and that there are inherent diagnostic limitations compared to [id number] evaluations. We elected to proceed with the telephone visit telemedicine consultation. Telephone visit to discuss how patient is doing with anxiety after changing Buspar to 30 mg BID. She is still taking her Cymbalta 60 mg BID and her Trazodone 50 mg nightly. She states she is doing well on this combination and feels her symptoms are well controlled. Denies side effects or issues with the medications. Chronic constipation: Patient has apt with Dr. Dowling on 10/19/21 to evaluate her bowel issues. The following portions of the patient's history were reviewed and updated as appropriate: allergies, current medications, past family history, past medical history, past social history, past surgical history, and problem list. Review of Systems Constitutional: Positive for fatigue. Negative for activity change. HENT: Negative for hearing loss. Eyes: Negative for visual disturbance. Respiratory: Negative for cough, chest tightness and shortness of breath. Cardiovascular: Negative for chest pain and palpitations. Gastrointestinal: Positive for constipation. Negative for blood in stool. Musculoskeletal: Positive for arthralgias and back pain. Negative for gait problem. Skin: Negative. Neurological: Negative for dizziness, tremors, seizures, weakness, light-headedness and headaches. Psychiatric/Behavioral: Positive for dysphoric mood. Negative for agitation and suicidal ideas. The patient is nervous/anxious. Patient's Medications New Prescriptions No medications on file Previous Medications BUSPIRONE (BUSPAR) 30 MG TABLET Take 1 (one) tablet (30 mg total) by mouth 2 (two) times a day . CYCLOBENZAPRINE (FLEXERIL) 10 MG TABLET Take 1 (one) tablet (10 mg total) by mouth 2 (two) times a day as needed for muscle spasms (neck pain) . DOCUSATE SODIUM (COLACE) 100 MG CAPSULE Take 200 mg by mouth 3 (three) times a day as needed for constipation . DULOXETINE (CYMBALTA) 60 MG CAPSULE Take 1 (one) capsule (60 mg total) by mouth 2 (two) times a day . FLORAJEN ACIDOPHILUS 20 BILLION CELL CAP Take one capsule by mouth in the morning. . FLUTICASONE PROPIONATE (FLONASE) 50 MCG/ACTUATION NASAL SPRAY Instill 2 (two) sprays into each nostril daily . MULTIVITAMIN (THERAGRAN) PER TABLET Take 1 tablet by mouth daily . PENTOXIFYLLINE (TRENTAL) 400 MG CR TABLET Take 400 mg by mouth 3 (three) times a day with meals . PILOCARPINE (SALAGEN) 5 MG TABLET Take 5 mg by mouth 3 (three) times a day . POLYETHYLENE GLYCOL (MIRALAX) 17 GRAM POWDER Take 17 (seventeen) g by mouth daily as needed (constipation) . TRAZODONE (DESYREL) 50 MG TABLET Take 1 (one) tablet (50 mg total) by mouth nightly . VITAMIN B COMPLEX (B COMPLEX-VITAMIN B12 ORAL) Take 1 tablet by mouth daily . VITAMIN E 1000 UNIT CAPSULE TAKE 1 CAPSULE BY MOUTH ONCE DAILY FOR FIBROSIS Modified Medications Modified Medication Previous Medication LEVOTHYROXINE (SYNTHROID, LEVOTHROID) 100 MCG TABLET levothyroxine (SYNTHROID, LEVOTHROID) 100 MCG tablet Take 1 (one) tablet (100 mcg total) by mouth once daily . Take 1 (one) tablet (100 mcg total) by mouth once daily . Discontinued Medications No medications on file Assessment/Plan: Problem List Items Addressed This Visit Endocrine Hypothyroidism (acquired) Relevant Medications levothyroxine (SYNTHROID, LEVOTHROID) 100 MCG tablet Other Depression with anxiety Continue current dose of Cymbalta, Buspar, and Trazodone. No changes. Call with any issues with these medications. I have spent 6 minutes with the patient reviewing the HPI and Plan of Care. documented in this encounter [facility] 08-21-2021 Instructions Kirstie Hines CNP - 08/21/2021 11:29 AM EDT Problem List Items Addressed This Visit Other Depression with anxiety Increasing your Buspar to 30 mg twice a day instead of the 20 mg you are taking three times a day. Continue your Cymbalta and Trazodone as ordered. Relevant Medications busPIRone (BUSPAR) 30 MG tablet Other Visit Diagnoses Chronic constipation - Primary Relevant Orders Ambulatory referral to Gastroenterology If any referrals were placed at the time of your visit please allow 2 weeks for processing. If you haven't heard from anyone within 2 weeks please contact my office so we can look into the status of your referral. If you were given any labs today please ensure they are completed according to the directions given. Once labs are completed please allow 1-2 weeks for us to receive the results, review them, and let you know what steps, if any, are needed next. If you haven't heard from us after that please call to inquire. If labs were ordered to be done PRIOR to your next visit we will discuss the results at the time of your office visit. If any procedures or imaging studies were ordered that must be prior authorized please give us 2 weeks to get them approved. Once approved someone should call you to schedule them or give you a date and time that they were scheduled for. If you haven't heard anything within 2 weeks of the office visit please call the office so we can look into their status. Customer Service/Billing Questions: [phone] [facility] [place] Assistance: [phone] or [phone] Financial Assistance: [phone] or [phone] documented in this encounter [facility] 08-21-2021 Evaluation + Plan note Associated Problem(s): Depression with anxiety Increasing your Buspar to 30 mg twice a day instead of the 20 mg you are taking three times a day. Continue your Cymbalta and Trazodone as ordered. [facility] 08-21-2021 Miscellaneous Notes Associated Problem(s): Depression with anxiety Increasing your Buspar to 30 mg twice a day instead of the 20 mg you are taking three times a day. Continue your Cymbalta and Trazodone as ordered. documented in this encounter [facility] 08-21-2021 History of Present illness Narrative Images from the original note were not included. Subjective Patient ID: Fco Garnett is a 50 y.o. female. Patient is here today for a routine interval visit. She states she has been under intense stress due to a lot of changes in her life at this time. Constipation: Patient has struggled with constipation her entire life. She states it has gotten worse since her cancer diagnosis and treatment. She is currently using Miralax 1 capful twice a day, Colace 200 mg TID, a probiotic, and fiber tablets with no improvement. She states there are still times her stools are hard. She states there are times she will go every 3 days. She states she is uncomfortable and feels bloated at times. Anxiety/depression: Patient is currently on Cymbalta 60 mg twice a day. She is also on Buspar 10 mg, she is taking this up to 3 x a day most days and her anxiety still does not feel well controlled. She has a lot of stress in her life related to her children. Patient is also on Trazodone 50 mg nightly and this is helping her sleep. The following were reviewed and updated as appropriate for today's visit: allergies, current medications, past family history, past medical history, past social history, past surgical history and problem list. Patient's Medications New Prescriptions No medications on file Previous Medications CYCLOBENZAPRINE (FLEXERIL) 10 MG TABLET Take 1 (one) tablet (10 mg total) by mouth 2 (two) times a day as needed for muscle spasms (neck pain) . DOCUSATE SODIUM (COLACE) 100 MG CAPSULE Take 200 mg by mouth 3 (three) times a day as needed for constipation . DULOXETINE (CYMBALTA) 60 MG CAPSULE Take 1 (one) capsule (60 mg total) by mouth 2 (two) times a day . FLORAJEN ACIDOPHILUS 20 BILLION CELL CAP Take one capsule by mouth in the morning. . FLUTICASONE PROPIONATE (FLONASE) 50 MCG/ACTUATION NASAL SPRAY Instill 2 (two) sprays into each nostril daily . LEVOTHYROXINE (SYNTHROID, LEVOTHROID) 100 MCG TABLET Take 1 (one) tablet (100 mcg total) by mouth once daily . MULTIVITAMIN (THERAGRAN) PER TABLET Take 1 tablet by mouth daily . PENTOXIFYLLINE (TRENTAL) 400 MG CR TABLET Take 400 mg by mouth 3 (three) times a day with meals . PILOCARPINE (SALAGEN) 5 MG TABLET Take 5 mg by mouth 3 (three) times a day . POLYETHYLENE GLYCOL (MIRALAX) 17 GRAM POWDER Take 17 (seventeen) g by mouth daily as needed (constipation) . TRAZODONE (DESYREL) 50 MG TABLET Take 1 (one) tablet (50 mg total) by mouth nightly . VITAMIN B COMPLEX (B COMPLEX-VITAMIN B12 ORAL) Take 1 tablet by mouth daily . VITAMIN E 1000 UNIT CAPSULE TAKE 1 CAPSULE BY MOUTH ONCE DAILY FOR FIBROSIS Modified Medications Modified Medication Previous Medication BUSPIRONE (BUSPAR) 30 MG TABLET busPIRone (BUSPAR) 10 MG tablet Take 1 (one) tablet (30 mg total) by mouth 2 (two) times a day . Take 1 (one) tablet (10 mg total) by mouth 3 (three) times a day as needed (anxiety) . Discontinued Medications AZITHROMYCIN (Z-RENETTA) 5 DAY DOSE PACK Follow directions on package . FLU VAC QV 2020,18YR UP,RC,PF, (FLUBLOK QUAD) SYRINGE Sign this order in conjunction with the immunization order to satisfy [place] [employer] Positive ID requirements for immunization orders. . FLU VAC QV 2020,18YR UP,RC,PF, (FLUBLOK QUAD) SYRINGE Sign this order in conjunction with the immunization order to satisfy [place] [employer] Positive ID requirements for immunization orders. . L.RHAMN A-191-L.AC-B.ETIENNE-B.MARIO (PROBIOTIC) 20 BILLION CELL CPSP Take 1 capsule by mouth daily . Review of Systems Review of Systems Constitutional: Positive for fatigue. Negative for activity change. HENT: Negative for hearing loss. Eyes: Negative for visual disturbance. Respiratory: Negative for cough, chest tightness and shortness of breath. Cardiovascular: Negative for chest pain and palpitations. Gastrointestinal: Positive for constipation. Negative for blood in stool. Musculoskeletal: Positive for arthralgias and back pain. Negative for gait problem. Skin: Negative. Neurological: Negative for dizziness, tremors, seizures, weakness, light-headedness and headaches. Psychiatric/Behavioral: Positive for dysphoric mood. Negative for agitation and suicidal ideas. The patient is nervous/anxious. Vitals: 08/21/21 1051 BP: 96/60 BP Location: Left arm Patient Position: Sitting BP Cuff Size: X-large Adult Pulse: 82 Resp: 16 Temp: 97.9 F (36.6 C) TempSrc: Temporal SpO2: 97% Weight: 83.9 kg (185 lb) Height: 5' 2 Body mass index is 33.84 kg/m . Physical Exam Physical Exam Constitutional: Appearance: She is well-developed. HENT: Right Ear: External ear normal. Left Ear: External ear normal. Nose: Nose normal. Eyes: General: Lids are normal. Conjunctiva/sclera: Conjunctivae normal. Cardiovascular: Rate and Rhythm: Normal rate and regular rhythm. Heart sounds: Normal heart sounds. No murmur heard. Pulmonary: Effort: Pulmonary effort is normal. Breath sounds: Normal breath sounds. Musculoskeletal: Cervical back: Normal range of motion. Comments: Normal gait Skin: General: Skin is warm and dry. Neurological: Mental Status: She is alert and oriented to person, place, and time. GCS: GCS eye subscore is 4. GCS verbal subscore is 5. GCS motor subscore is 6. Psychiatric: Speech: Speech normal. Behavior: Behavior normal. OARRS/NARxCHECK Report Received and Assessed: 09/05/2020 Date controlled substance agreement signed: 09/05/2020 Date of last drug screen: No data found Functional Assessment: No data found Assessment/Plan Problem List Items Addressed This Visit Other Depression with anxiety Increasing your Buspar to 30 mg twice a day instead of the 20 mg you are taking three times a day. Continue your Cymbalta and Trazodone as ordered. Relevant Medications busPIRone (BUSPAR) 30 MG tablet Other Visit Diagnoses Chronic constipation - Primary Relevant Orders Ambulatory referral to Gastroenterology Preventative Goals Goals Blood Pressure < 130/80 High blood pressure makes your heart work too hard. It can cause heart attack, stroke and kidney disease. Coping and Emotions Coping and Emotions: Manage stress Adapt to lifestyle changes Get support from family / friends HEMOGLOBIN A1C < 7.0 Blood sugar levels outside the normal range may be an indicator of diabetes. For any new medications prescribed today, patient was educated about indications for the medication, how to take the medication and potential side effects of the medications. Kirstie Hines CNP documented in this encounter [facility] 07-22-2021 History of Present illness Narrative Fco is a pleasant 31-year-old female who underwent total abdominal hysterectomy at age 20 for low-grade ovarian cancer did not require adjuvant chemoradiation. Admits having chronic constipation since adolescence that it worsens as she is aged. 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 She continues to follow with her oncology team and has recent head neck CT which was unremarkable.She admits having constipation over much of her adult life is averaging 1 bowel movement every 5 days typically has a hard stool followed by day of diarrhea then will have no bowel movement for 5 more days. She is use [id number] Metamucil, MiraLAX, laxatives. She recalls being given mineral oil and castor oil as a child. She denies any rectal bleeding no anemia no family history of colorectal cancer. Colonoscopy was done [address] [facility] and stated to be normal. [facility] [place] [address] Work Phone: 05-25-2021 Instructions Kirstie Hines CNP - 05/25/2021 9:09 AM EST Problem List Items Addressed This Visit Other COVID-19 - Primary Call [facility] pharmacy and see if they will deliver your medication. If at any point your weakness gets worse, cough/shortness of breath/or chest pain get worse I want you to call the squad. You are high risk for Covid to get much worse due to your low immune system post CA/chemo. Relevant Medications azithromycin (Z-RENETTA) 5 day dose pack predniSONE (DELTASONE) 20 MG tablet If any referrals were placed at the time of your visit please allow 2 weeks for processing. If you haven't heard from anyone within 2 weeks please contact my office so we can look into the status of your referral. If you were given any labs today please ensure they are completed according to the directions given. Once labs are completed please allow 1-2 weeks for us to receive the results, review them, and let you know what steps, if any, are needed next. If you haven't heard from us after that please call to inquire. If labs were ordered to be done PRIOR to your next visit we will discuss the results at the time of your office visit. If any procedures or imaging studies were ordered that must be prior authorized please give us 2 weeks to get them approved. Once approved someone should call you to schedule them or give you a date and time that they were scheduled for. If you haven't heard anything within 2 weeks of the office visit please call the office so we can look into their status. Customer Service/Billing Questions: [phone] MyChart Assistance: [phone] or [phone] Financial Assistance: [phone] or [phone] documented in this encounter [facility] 05-25-2021 Miscellaneous Notes Associated Problem(s): COVID-19 Call [facility] pharmacy and see if they will deliver your medication. If at any point your weakness gets worse, cough/shortness of breath/or chest pain get worse I want you to call the squad. You are high risk for Covid to get much worse due to your low immune system post CA/chemo. documented in this encounter [facility] 05-25-2021 History of Present illness Narrative Images from the original note were not included. Video Visit [facility] [address] [facility] [address] [facility] [id number] Via Real-time Synchronous Audiovisual [facility] 05/25/2021 Kirstie Hines CNP Provider Location: [address] [place] [address] Patient Location Pulmonary Disease Specialist: None Patient Location: Patient's Home Patient: Fco Garnett Date of : 1970 (50 y.o. female) PCP: Kirstie Hines CNP Video Visit Consent Statement: I discussed risks, benefits and alternatives of a real-time synchronous audiovisual consultation with the patient (and any accompanying persons) including the risks that the patient s personal health details and medical records will be discussed over real-time, synchronous, interactive video/audio/telecommunication technology, the visit will not be recorded without the express consent of both the provider and the patient, and that there are some limitations compared to [id number] evaluations. We elected to proceed. Subjective Patient ID: Fco Garnett is a 50 y.o. female. Patient went to the ER on 05/23/21 due to cough, shortness of breath, and chest tightness. She was tested for Covid and it is POSITIVE. She had normal vitals and pulse ox while in the ER. Chest xray was normal, and labs were normal. Today she states she has continued to get worse. She states she is so weak she is barely able to get herself to the bathroom. She is using Tessalon Perles for cough and Tylenol for fever. Influenza This is a new problem. Episode onset: 6 days. The problem occurs constantly. The problem has been gradually worsening. Associated symptoms include anorexia, arthralgias, chills, congestion, coughing, diaphoresis, fatigue, a fever, headaches, myalgias, a sore throat and weakness. Pertinent negatives include no abdominal pain, change in bowel habit, chest pain, joint swelling, nausea, neck pain, numbness, rash, swollen glands, urinary symptoms, vertigo, visual change or vomiting. Associated symptoms comments: Shortness of breath Wheezing, Chest tightness, chest pain. Exacerbated by: all activity. She has tried acetaminophen, sleep, rest and lying down for the symptoms. The treatment provided no relief. The following were reviewed and updated as appropriate for today's visit: allergies, current medications, past family history, past medical history, past social history, past surgical history and problem list. Patient's Medications New Prescriptions AZITHROMYCIN (Z-RENETTA) 5 DAY DOSE PACK Follow directions on package . PREDNISONE (DELTASONE) 20 MG TABLET Take 2 (two) tablets (40 mg total) by mouth daily for 5 days . Previous Medications BENZONATATE (TESSALON) 200 MG CAPSULE Take 1 (one) capsule (200 mg total) by mouth 3 (three) times a day as needed for cough . BUSPIRONE (BUSPAR) 10 MG TABLET Take 1 (one) tablet (10 mg total) by mouth 3 (three) times a day as needed (anxiety) . CYCLOBENZAPRINE (FLEXERIL) 10 MG TABLET Take 1 (one) tablet (10 mg total) by mouth 2 (two) times a day as needed for muscle spasms (neck pain) . DULOXETINE (CYMBALTA) 60 MG CAPSULE Take 1 (one) capsule (60 mg total) by mouth 2 (two) times a day . FLORAJEN ACIDOPHILUS 20 BILLION CELL CAP Take one capsule by mouth in the morning. . FLU VAC QV 2020,18YR UP,RC,PF, (FLUBLOK QUAD) SYRINGE Sign this order in conjunction with the immunization order to satisfy [place] [employer] Positive ID requirements for immunization orders. . FLU VAC QV 2020,18YR UP,RC,PF, (FLUBLOK QUAD) SYRINGE Sign this order in conjunction with the immunization order to satisfy [place] [employer] Positive ID requirements for immunization orders. . FLUTICASONE PROPIONATE (FLONASE) 50 MCG/ACTUATION NASAL SPRAY Instill 2 (two) sprays into each nostril daily . L.RHAMN A-191-L.AC-B.ETIENNE-B.MARIO (PROBIOTIC) 20 BILLION CELL CPSP Take 1 capsule by mouth daily . LEVOTHYROXINE (SYNTHROID, LEVOTHROID) 100 MCG TABLET Take 1 (one) tablet (100 mcg total) by mouth once daily . MULTIVITAMIN (MULTIVITAMIN) PER TABLET Take 1 tablet by mouth daily . PENTOXIFYLLINE (TRENTAL) 400 MG CR TABLET Take 400 mg by mouth 3 (three) times a day with meals . PILOCARPINE (SALAGEN) 5 MG TABLET Take 5 mg by mouth 3 (three) times a day . POLYETHYLENE GLYCOL (MIRALAX) 17 GRAM POWDER Take 17 (seventeen) g by mouth daily as needed (constipation) . TRAZODONE (DESYREL) 50 MG TABLET Take 1 (one) tablet (50 mg total) by mouth nightly . VITAMIN B COMPLEX (B COMPLEX-VITAMIN B12 ORAL) Take 1 tablet by mouth daily . VITAMIN E 1000 UNIT CAPSULE TAKE 1 CAPSULE BY MOUTH ONCE DAILY FOR FIBROSIS Modified Medications No medications on file Discontinued Medications No medications on file Review of Systems Review of Systems Constitutional: Positive for chills, diaphoresis, fatigue and fever. HENT: Positive for congestion and sore throat. Respiratory: Positive for cough. Cardiovascular: Negative for chest pain. Gastrointestinal: Positive for anorexia. Negative for abdominal pain, change in bowel habit, nausea and vomiting. Musculoskeletal: Positive for arthralgias and myalgias. Negative for joint swelling and neck pain. Skin: Negative for rash. Neurological: Positive for weakness and headaches. Negative for vertigo and numbness. There were no vitals filed for this visit. There is no height or weight on file to calculate BMI. Physical Exam Physical Exam Constitutional: Appearance: She is ill-appearing. Pulmonary: Comments: Deep harsh rattling cough Skin: Coloration: Skin is pale. Neurological: Mental Status: She is alert. OARRS/NARxCHECK Report Received and Assessed: 09/05/2020 Date controlled substance agreement signed: 09/05/2020 Date of last drug screen: No data found Functional Assessment: No data found Assessment/Plan Problem List Items Addressed This Visit Other COVID-19 - Primary Call [facility] pharmacy and see if they will deliver your medication. If at any point your weakness gets worse, cough/shortness of breath/or chest pain get worse I want you to call the squad. You are high risk for Covid to get much worse due to your low immune system post CA/chemo. Relevant Medications azithromycin (Z-RENETTA) 5 day dose pack predniSONE (DELTASONE) 20 MG tablet Preventative Goals Goals Blood Pressure < 130/80 High blood pressure makes your heart work too hard. It can cause heart attack, stroke and kidney disease. Coping and Emotions Coping and Emotions: Manage stress Adapt to lifestyle changes Get support from family / friends HEMOGLOBIN A1C < 7.0 Blood sugar levels outside the normal range may be an indicator of diabetes. For any new medications prescribed today, patient was educated about indications for the medication, how to take the medication and potential side effects of the medications. Kirstie Hines CNP documented in this encounter [facility] 05-25-2021 History of Present illness Narrative Chart reviewed regarding recent ED visit. Patient was evaluated in the emergency department on 05-24-21 Patient has follow up appointment with PCP within 7 days..05-25-21 documented in this encounter [facility] 05-23-2021 Instructions Kirstie Hines CNP - 05/23/2021 10:15 AM EST Problem List Items Addressed This Visit Other Suspected COVID-19 virus infection I suspect with your symptoms + exposure you have Covid. You have an extensive medical history that decreases your immune system. You are weak, short of breath, having chest pain, and unable to get enough fluids down. I think the best thing to do is go to the ER to be evaluated. Let me know if you need anything else. If any referrals were placed at the time of your visit please allow 2 weeks for processing. If you haven't heard from anyone within 2 weeks please contact my office so we can look into the status of your referral. If you were given any labs today please ensure they are completed according to the directions given. Once labs are completed please allow 1-2 weeks for us to receive the results, review them, and let you know what steps, if any, are needed next. If you haven't heard from us after that please call to inquire. If labs were ordered to be done PRIOR to your next visit we will discuss the results at the time of your office visit. If any procedures or imaging studies were ordered that must be prior authorized please give us 2 weeks to get them approved. Once approved someone should call you to schedule them or give you a date and time that they were scheduled for. If you haven't heard anything within 2 weeks of the office visit please call the office so we can look into their status. Customer Service/Billing Questions: [phone] [place] Assistance: [phone] or [phone] Financial Assistance: [phone] or [phone] documented in this encounter [facility] 05-23-2021 Miscellaneous Notes Associated Problem(s): Suspected COVID-19 virus infection I suspect with your symptoms + exposure you have Covid. You have an extensive medical history that decreases your immune system. You are weak, short of breath, having chest pain, and unable to get enough fluids down. I think the best thing to do is go to the ER to be evaluated. Let me know if you need anything else. documented in this encounter [facility] 05-23-2021 History of Present illness Narrative Telephone Visit Via Phone Call [facility] [address] [facility] [id number] Telephone Visit [facility] 05/23/2021 Kirstie Hines CNP Provider Location: [address] [place] [address] Patient Location Pulmonary Disease Specialist: None Patient Location: Patient's Home Patient: Fco Garnett Date of : 1970 (50 y.o. female) PCP: Kirstie Hines CNP I discussed risks, benefits and alternatives of a telephone visit telemedicine consultation with the patient (and any accompanying persons) including the risks that the patient's personal health details and medical records will be discussed over real-time, synchronous, interactive audio technology, the visit will not be recorded without the express consent of both the provider and the patient, and that there are inherent diagnostic limitations compared to [id number] evaluations. We elected to proceed with the telephone visit telemedicine consultation. Influenza This is a new problem. Episode onset: 4 days. The problem has been gradually worsening. Associated symptoms include anorexia, arthralgias, a change in bowel habit, chest pain (feels like an elephant sitting on chest), chills, congestion, coughing, diaphoresis, fatigue, a fever, headaches, myalgias, nausea, a sore throat (resolved) and weakness. Pertinent negatives include no abdominal pain, joint swelling, neck pain, numbness, rash, swollen glands, urinary symptoms, vertigo, visual change or vomiting. Associated symptoms comments: Short of breath Wheezing Diarrhea nausea. Exacerbated by: activity. Treatments tried: Mucinex, Nyquil. The treatment provided mild relief. The following portions of the patient's history were reviewed and updated as appropriate: allergies, current medications, past family history, past medical history, past social history, past surgical history, and problem list. Review of Systems Constitutional: Positive for activity change, appetite change, chills, diaphoresis, fatigue and fever. HENT: Positive for congestion and sore throat (resolved). Respiratory: Positive for cough, chest tightness, shortness of breath and wheezing. Cardiovascular: Positive for chest pain (feels like an elephant sitting on chest). Negative for palpitations. Gastrointestinal: Positive for anorexia, change in bowel habit, diarrhea and nausea. Negative for abdominal pain and vomiting. Musculoskeletal: Positive for arthralgias and myalgias. Negative for joint swelling and neck pain. Skin: Negative for rash. Allergic/Immunologic: Positive for immunocompromised state. Neurological: Positive for weakness and headaches. Negative for vertigo and numbness. Patient's Medications New Prescriptions No medications on file Previous Medications BUSPIRONE (BUSPAR) 10 MG TABLET Take 1 (one) tablet (10 mg total) by mouth 3 (three) times a day as needed (anxiety) . CYCLOBENZAPRINE (FLEXERIL) 10 MG TABLET Take 1 (one) tablet (10 mg total) by mouth 2 (two) times a day as needed for muscle spasms (neck pain) . DULOXETINE (CYMBALTA) 60 MG CAPSULE Take 1 (one) capsule (60 mg total) by mouth 2 (two) times a day . FLORAJEN ACIDOPHILUS 20 BILLION CELL CAP Take one capsule by mouth in the morning. . FLU VAC QV 2020,18YR UP,RC,PF, (FLUBLOK QUAD) SYRINGE Sign this order in conjunction with the immunization order to satisfy [place] [employer] Positive ID requirements for immunization orders. . FLU VAC QV 2021,18YR UP,RC,PF, (FLUBLOK QUAD) SYRINGE Sign this order in conjunction with the immunization order to satisfy [place] [employer] Positive ID requirements for immunization orders. . FLUTICASONE PROPIONATE (FLONASE) 50 MCG/ACTUATION NASAL SPRAY Instill 2 (two) sprays into each nostril daily . L.RHAMN A-191-L.AC-B.ETIENNE-B.MARIO (PROBIOTIC) 20 BILLION CELL CPSP Take 1 capsule by mouth daily . LEVOTHYROXINE (SYNTHROID, LEVOTHROID) 100 MCG TABLET Take 1 (one) tablet (100 mcg total) by mouth once daily . MULTIVITAMIN (MULTIVITAMIN) PER TABLET Take 1 tablet by mouth daily . PENTOXIFYLLINE (TRENTAL) 400 MG CR TABLET Take 400 mg by mouth 3 (three) times a day with meals . PILOCARPINE (SALAGEN) 5 MG TABLET Take 5 mg by mouth 3 (three) times a day . POLYETHYLENE GLYCOL (MIRALAX) 17 GRAM POWDER Take 17 (seventeen) g by mouth daily as needed (constipation) . TRAZODONE (DESYREL) 50 MG TABLET Take 1 (one) tablet (50 mg total) by mouth nightly . VITAMIN B COMPLEX (B COMPLEX-VITAMIN B12 ORAL) Take 1 tablet by mouth daily . VITAMIN E 1000 UNIT CAPSULE TAKE 1 CAPSULE BY MOUTH ONCE DAILY FOR FIBROSIS Modified Medications No medications on file Discontinued Medications No medications on file Assessment/Plan: Problem List Items Addressed This Visit Other Suspected COVID-19 virus infection I suspect with your symptoms + exposure you have Covid. You have an extensive medical history that decreases your immune system. You are weak, short of breath, having chest pain, and unable to get enough fluids down. I think the best thing to do is go to the ER to be evaluated. Let me know if you need anything else. I have spent 8 minutes with the patient reviewing the HPI and Plan of Care. documented in this encounter [facility] 05-17-2021 History of Present illness Narrative CC: Cancer follow upCXR: 05/17TSH: Managed by PCPMs. FCO GARNETT, is a 51 year old female with T3N2M0 SCCa P16+ right BOT cancer. She completed chemoradiation therapy 12/23/17. Last seen 05/16. She recently went camping and was bit by a tick. She was seen in the ED on 10/27/21. Patient was treated with doxycycline and topical steroid cream. She is doing well overall. She is tolerating near regular diet. Weight is stable. +mild xerostomia. No new concerns today. No interim health concerns. Has followed routine health recommendations including mammogram.History:Dx: T3N2M0 SCCa, P16+ Right BOT09/22/17: CT neck with contrast a right base of tongue mass which crosses the midline and involves nearly the entire BOT along with multiple (at least 3) necrotic/pathologic lymphadenopathy along with a few other enhancing lymph nodes. Largest cystic right neck mass measures 4cm.09/23/17: Dr. Gaitan OR for triple endoscopy and biopsy which returned +inv SCCa (P16+)10/04/17: OR for triple endoscopy/tumor mapping10/07/17: CT chest: no evidence of pulmonary metastasis11/05/17: Began chemoradiation therapy with cisplatin switched to carboplatin and paclitaxel12/23/17: Completed ngdmdxceuhlxsx16/2/2018: 3 month post treatment PET - max SUV of 4.6 within the BOT, area appears more diffuse than a discrete area. 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 Now on disabilityBy signing my name below, I, Adelaide Christiansen, attest that this documentation has been prepared under the direction and in the presence of Dr. John Mattson MD.All medical record entries made by the Joyceibtonny were at my direction and personally dictated by me, Dr. John Mattson. I have reviewed the chart and agree that the record accurately reflects my personal performance of the history, physical exam, discussion and plan. PM-Onyerdbtuilgzt-Ahlxrz urg Work Phone: 04-06-2021 Miscellaneous Notes RECEIVED FAX FROM PHARMACY. REQUESTING REFILL ON QUEUED MEDICATION(S). LAST OV:03/09/2021 NEXT OV: documented in this encounter [facility] 09-14-2020 Instructions Kirstie Hines [facility] - 09/14/2020 9:27 AM EDT Problem List Items Addressed This Visit Respiratory Congestion of nasal sinus - Primary I want you to use the Flonase 2 sprays in each nostril twice a day for the next few days and then decrease to once a day. Also take 3 days of Prednisone to help symptoms. I suspect you have a lot of inflammation from the scope along with allergies at this time. If you are not improving or you start to get worse let me know. Relevant Medications fluticasone propionate (FLONASE) 50 mcg/actuation nasal spray predniSONE (DELTASONE) 20 MG tablet If any referrals were placed at the time of your visit please allow 2 weeks for processing. If you haven't heard from anyone within 2 weeks please contact my office so we can look into the status of your referral. If you were given any labs today please ensure they are completed according to the directions given. Once labs are completed please allow 1-2 weeks for us to receive the results, review them, and let you know what steps, if any, are needed next. If you haven't heard from us after that please call to inquire. If labs were ordered to be done PRIOR to your next visit we will discuss the results at the time of your office visit. If any procedures or imaging studies were ordered that must be prior authorized please give us 2 weeks to get them approved. Once approved someone should call you to schedule them or give you a date and time that they were scheduled for. If you haven't heard anything within 2 weeks of the office visit please call the office so we can look into their status. Customer Service/Billing Questions: [phone] [facility] Assistance: [phone] or [phone] Financial Assistance: [phone] or [phone] documented in this encounter [facility] 09-14-2020 Miscellaneous Notes Associated Problem(s): Congestion of nasal sinus I want you to use the Flonase 2 sprays in each nostril twice a day for the next few days and then decrease to once a day. Also take 3 days of Prednisone to help symptoms. I suspect you have a lot of inflammation from the scope along with allergies at this time. If you are not improving or you start to get worse let me know. documented in this encounter [facility] 09-14-2020 History of Present illness Narrative Telephone Visit Via Phone Call [facility] [address] [facility] [address] [place] [phone] Telephone Visit [facility] 09/14/2020 Kirstie Hines CNP Provider Location: [address] [place] [address] Patient Location Pulmonary Disease Specialist: None Patient Location: Patient's Home Patient: Fco Garnett Date of : 1970 (49 y.o. female) PCP: Kirstie Hines CNP I discussed risks, benefits and alternatives of a telephone visit telemedicine consultation with the patient (and any accompanying persons) including the risks that the patient's personal health details and medical records will be discussed over real-time, synchronous, interactive audio technology, the visit will not be recorded without the express consent of both the provider and the patient, and that there are inherent diagnostic limitations compared to [id number] evaluations. We elected to proceed with the telephone visit telemedicine consultation. Patient states she had sudden onset of nasal congestion and headache after her appointment with specialist Saturday. She states they did a scope in the office down her nose to evaluate her nose and throat. She states since that time she has had severe congestion alternating with runny nose. She states at times she is blowing out purulent drainage. Sinus Problem This is a new problem. Episode onset: 2 days. There has been no fever. Associated symptoms include congestion, headaches and sinus pressure. Pertinent negatives include no chills, coughing, diaphoresis, ear pain, hoarse voice, neck pain, shortness of breath, sneezing, sore throat or swollen glands. Past treatments include acetaminophen. The treatment provided mild relief. The following portions of the patient's history were reviewed and updated as appropriate: allergies, current medications, past family history, past medical history, past social history, past surgical history, and problem list. Review of Systems Constitutional: Negative for activity change, appetite change, chills, diaphoresis, fatigue and fever. HENT: Positive for congestion, postnasal drip, rhinorrhea and sinus pressure. Negative for ear discharge, ear pain, facial swelling, nosebleeds, sinus pain, sore throat and trouble swallowing. Eyes: Negative for photophobia, pain, discharge, redness and itching. Respiratory: Negative for cough, chest tightness, shortness of breath and wheezing. Musculoskeletal: Negative for arthralgias, myalgias, neck pain and neck stiffness. Skin: Negative. Allergic/Immunologic: Positive for environmental allergies. Neurological: Positive for headaches. Negative for dizziness, weakness and light-headedness. Patient's Medications New Prescriptions FLUTICASONE PROPIONATE (FLONASE) 50 MCG/ACTUATION NASAL SPRAY Instill 2 (two) sprays into each nostril daily . PREDNISONE (DELTASONE) 20 MG TABLET Take 2 (two) tablets (40 mg total) by mouth daily for 3 days . Previous Medications BUSPIRONE (BUSPAR) 7.5 MG TABLET Take 1 (one) tablet (7.5 mg total) by mouth 2 (two) times a day as needed (anxiety) . CYCLOBENZAPRINE (FLEXERIL) 10 MG TABLET Take 1 (one) tablet (10 mg total) by mouth 2 (two) times a day as needed for muscle spasms (neck pain) . DULOXETINE (CYMBALTA) 60 MG CAPSULE Take 1 (one) capsule (60 mg total) by mouth 2 (two) times a day . FLORAJEN 460 MG (20 BILLION CELL) CAP Take one capsule by mouth in the morning. . FLU VAC QV 2020,18YR UP,RC,PF, (FLUBLOK QUAD) SYRINGE Sign this order in conjunction with the immunization order to satisfy [place] [employer] Positive ID requirements for immunization orders. . L.RHAMN A-191-L.AC-B.ETIENNE-B.MARIO (PROBIOTIC) 20 BILLION CELL CPSP Take 1 capsule by mouth daily . LEVOTHYROXINE (SYNTHROID, LEVOTHROID) 100 MCG TABLET Take 1 (one) tablet (100 mcg total) by mouth once daily . MULTIVITAMIN (MULTIVITAMIN) PER TABLET Take 1 tablet by mouth daily . PENTOXIFYLLINE (TRENTAL) 400 MG CR TABLET Take 400 mg by mouth 3 (three) times a day with meals . PILOCARPINE (SALAGEN) 5 MG TABLET Take 5 mg by mouth 3 (three) times a day . POLYETHYLENE GLYCOL (MIRALAX) 17 GRAM POWDER Take 17 (seventeen) g by mouth daily as needed (constipation) . TRAZODONE (DESYREL) 50 MG TABLET Take 1 (one) tablet (50 mg total) by mouth nightly . VITAMIN B COMPLEX (B COMPLEX-VITAMIN B12 ORAL) Take 1 tablet by mouth daily . VITAMIN E 1000 UNIT CAPSULE TAKE 1 CAPSULE BY MOUTH ONCE DAILY FOR FIBROSIS VITAMIN E ACETATE (VITAMIN E ORAL) Take by mouth daily . Modified Medications No medications on file Discontinued Medications No medications on file Assessment/Plan: Problem List Items Addressed This Visit Respiratory Congestion of nasal sinus - Primary I want you to use the Flonase 2 sprays in each nostril twice a day for the next few days and then decrease to once a day. Also take 3 days of Prednisone to help symptoms. I suspect you have a lot of inflammation from the scope along with allergies at this time. If you are not improving or you start to get worse let me know. Relevant Medications fluticasone propionate (FLONASE) 50 mcg/actuation nasal spray predniSONE (DELTASONE) 20 MG tablet I have spent 6 minutes with the patient reviewing the HPI and Plan of Care. documented in this encounter [facility] 12-23-2017 History of Present illness Narrative CC: Cancer follow upCXR: 07/2021TSH: Managed by PCPMs. FCO GARNETT, is a 50 year old female with T3N2M0 SCCa P16+ right BOT cancer. She completed chemoradiation therapy 12/23/17. Last seen 09/14. She is doing ok overall. She is tolerating near regular diet. Weight is stable. +mild xerostomia. No new concerns today. She does have anHistory:Dx: T3N2M0 SCCa, P16+ Right BOT09/22/17: CT neck with contrast a right base of tongue mass which crosses the midline and involves nearly the entire BOT along with multiple (at least 3) necrotic/pathologic lymphadenopathy along with a few other enhancing lymph nodes. Largest cystic right neck mass measures 4cm.09/23/17: Dr. Gaitan OR for triple endoscopy and biopsy which returned +inv SCCa (P16+)10/04/17: OR for triple endoscopy/tumor mapping10/07/17: CT chest: no evidence of pulmonary metastasis11/05/17: Began chemoradiation therapy with cisplatin switched to carboplatin and paclitaxel12/23/17: Completed dyspnuqkotalol00/2/2018: 3 month post treatment PET - max SUV of 4.6 within the BOT, area appears more diffuse than a discrete area. 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 Now on disabilityBy signing my name below, I, Adelaide Christiansen, attest that this documentation has been prepared under the direction and in the presence of Dr. John Mattson MD.All medical record entries made by the Adelaide were at my direction and personally dictated by me, Dr. John Mattson. I have reviewed the chart and agree that the record accurately reflects my personal performance of the history, physical exam, discussion and plan. DO-Hjeoqlftsorqcc-Akqpeh urg Work Phone: 12-23-2017 History of Present illness Narrative CC: Cancer follow upCXR: 07/2021TSH: Managed by PCPMs. FCO GARNETT, is a 50 year old female with T3N2M0 SCCa P16+ right BOT cancer. She completed chemoradiation therapy 12/23/17. Last seen 09/14. She is doing ok overall. She is tolerating near regular diet. Weight is stable. +mild xerostomia. No new concerns today. She does have anHistory:Dx: T3N2M0 SCCa, P16+ Right BOT09/22/17: CT neck with contrast a right base of tongue mass which crosses the midline and involves nearly the entire BOT along with multiple (at least 3) necrotic/pathologic lymphadenopathy along with a few other enhancing lymph nodes. Largest cystic right neck mass measures 4cm.09/23/17: Dr. Gaitan OR for triple endoscopy and biopsy which returned +inv SCCa (P16+)10/04/17: OR for triple endoscopy/tumor mapping10/07/17: CT chest: no evidence of pulmonary metastasis11/05/17: Began chemoradiation therapy with cisplatin switched to carboplatin and paclitaxel12/23/17: Completed quyiqhohpzzrhq86/2/2018: 3 month post treatment PET - max SUV of 4.6 within the BOT, area appears more diffuse than a discrete area. 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 Now on disabilityBy signing my name below, I, Adelaide Christiansen, attest that this documentation has been prepared under the direction and in the presence of Dr. John Mattson MD.All medical record entries made by the Joyceibtonny were at my direction and personally dictated by me, Dr. John Mattson. I have reviewed the chart and agree that the record accurately reflects my personal performance of the history, physical exam, discussion and plan. KF-Yphrtkxoqlwkaj-Tfznl [place] [address] Work Phone: 12-23-2017 History of Present illness Narrative CC: Cancer follow upCXR: 07/2021TSH: Managed by PCPMs. FCO GARNETT, is a 50 year old female with T3N2M0 SCCa P16+ right BOT cancer. She completed chemoradiation therapy 12/23/17. Last seen 09/14. She is doing ok overall. She is tolerating near regular diet. Weight is stable. +mild xerostomia. No new concerns today. No interim health concerns.History:Dx: T3N2M0 SCCa, P16+ Right BOT09/22/17: CT neck with contrast a right base of tongue mass which crosses the midline and involves nearly the entire BOT along with multiple (at least 3) necrotic/pathologic lymphadenopathy along with a few other enhancing lymph nodes. Largest cystic right neck mass measures 4cm.09/23/17: Dr. Gaitan OR for triple endoscopy and biopsy which returned +inv SCCa (P16+)10/04/17: OR for triple endoscopy/tumor mapping10/07/17: CT chest: no evidence of pulmonary metastasis11/05/17: Began chemoradiation therapy with cisplatin switched to carboplatin and paclitaxel12/23/17: Completed tudtezismmadcj36/2/2018: 3 month post treatment PET - max SUV of 4.6 within the BOT, area appears more diffuse than a discrete area. 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 Now on disabilityBy signing my name below, I, Adelaide Christiansen, attest that this documentation has been prepared under the direction and in the presence of Dr. John Mattson MD.All medical record entries made by the Adelaide were at my direction and personally dictated by me, Dr. John Mattson. I have reviewed the chart and agree that the record accurately reflects my personal performance of the history, physical exam, discussion and plan. [place]-Ijwdsawfrsothk-Ljnoi [place] [address] Work Phone: 12-23-2017 History of Present illness Narrative CC: Cancer follow upCXR: 08/15TSH: Managed by PCPMs. FCO GARNETT, is a 50 year old female with T3N2M0 SCCa P16+ right BOT cancer. She completed chemoradiation therapy 12/23/17. Last seen 01/14. She is doing well overall. She is tolerating near regular diet. Weight is stable. +mild xerostomia. No new concerns today. No interim health concerns. Has followed routine health recommendations including mammogram. No new diagnoses.History:Dx: T3N2M0 SCCa, P16+ Right BOT09/22/17: CT neck with contrast a right base of tongue mass which crosses the midline and involves nearly the entire BOT along with multiple (at least 3) necrotic/pathologic lymphadenopathy along with a few other enhancing lymph nodes. Largest cystic right neck mass measures 4cm.09/23/17: Dr. Gaitan OR for triple endoscopy and biopsy which returned +inv SCCa (P16+)10/04/17: OR for triple endoscopy/tumor mapping10/07/17: CT chest: no evidence of pulmonary metastasis11/05/17: Began chemoradiation therapy with cisplatin switched to carboplatin and paclitaxel12/23/17: Completed brvkezwufoefpi63/2/2018: 3 month post treatment PET - max SUV of 4.6 within the BOT, area appears more diffuse than a discrete area. 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 Now on disabilityBy signing my name below, I, Adelaide Christiansen, attest that this documentation has been prepared under the direction and in the presence of Dr. John Mattson MD.All medical record entries made by the Scribe were at my direction and personally dictated by me, Dr. John Mattson. I have reviewed the chart and agree that the record accurately reflects my personal performance of the history, physical exam, discussion and plan. ZG-Tjlamjiiktiuou-Fafsm [place] [address] Work Phone: 12-23-2017 History of Present illness Narrative CC: Cancer follow upCXR: Due nowTSH: Managed by PCPMs. FCO GARNETT, is a 51 year old female with T3N2M0 SCCa P16+ right BOT cancer. She completed chemoradiation therapy 12/23/17. Last seen 11/15. She's doing great. Mild dysphagia. Weight is stable. +mild xerostomia. No new concerns today. No interim health concerns. Had recent mammogram - has a tender axillary lymph node that PCP is monitoring & has follow up 06/18.History:Dx: T3N2M0 SCCa, P16+ Right BOT09/22/17: CT neck with contrast a right base of tongue mass which crosses the midline and involves nearly the entire BOT along with multiple (at least 3) necrotic/pathologic lymphadenopathy along with a few other enhancing lymph nodes. Largest cystic right neck mass measures 4cm.09/23/17: Dr. Gaitan OR for triple endoscopy and biopsy which returned +inv SCCa (P16+)10/04/17: OR for triple endoscopy/tumor mapping10/07/17: CT chest: no evidence of pulmonary metastasis11/05/17: Began chemoradiation therapy with cisplatin switched to carboplatin and paclitaxel12/23/17: Completed [id number]/2/2018: 3 month post treatment PET - max SUV of 4.6 within the BOT, area appears more diffuse than a discrete area. 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 FCO GARNETT, is a 51 year old female with T3N2M0 SCCa P16+ right BOT cancer. She completed chemoradiation therapy 12/23/17. Last seen 11/15. She's doing great. Mild dysphagia. Weight is stable. +mild xerostomia. No new concerns today. No interim health concerns. Had recent mammogram - has a tender axillary lymph node that PCP is monitoring & has follow up 06/18.History:Dx: T3N2M0 SCCa, P16+ Right BOT09/22/17: CT neck with contrast a right base of tongue mass which crosses the midline and involves nearly the entire BOT along with multiple (at least 3) necrotic/pathologic lymphadenopathy along with a few other enhancing lymph nodes. Largest cystic right neck mass measures 4cm.09/23/17: Dr. Gaitan OR for triple endoscopy and biopsy which returned +inv SCCa (P16+)10/04/17: OR for triple endoscopy/tumor mapping10/07/17: CT chest: no evidence of pulmonary metastasis11/05/17: Began chemoradiation therapy with cisplatin switched to carboplatin and paclitaxel12/23/17: Completed [id number]/2/2018: 3 month post treatment PET - max SUV of 4.6 within the BOT, area appears more diffuse than a discrete area. 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 FCO GARNETT, is a 52 year old female with T3N2M0 SCCa P16+ right BOT cancer. She completed chemoradiation therapy 12/23/17. Last seen 05/17. She's doing great. Mild dysphagia. Weight is stable. +mild xerostomia. No new concerns today. No interim health concerns. PCP is managing her TSH. She has a CXR at [place] that we don't have access to. She is working and is happy to be at work.History:Dx: T3N2M0 SCCa, P16+ Right BOT09/22/17: CT neck with contrast a right base of tongue mass which crosses the midline and involves nearly the entire BOT along with multiple (at least 3) necrotic/pathologic lymphadenopathy along with a few other enhancing lymph nodes. Largest cystic right neck mass measures 4cm.09/23/17: Dr. Gaitan OR for triple endoscopy and biopsy which returned +inv SCCa (P16+)10/04/17: OR for triple endoscopy/tumor mapping10/07/17: CT chest: no evidence of pulmonary metastasis11/05/17: Began chemoradiation therapy with cisplatin switched to carboplatin and paclitaxel12/23/17: Completed [id number]/2/2018: 3 month post treatment PET - max SUV of 4.6 within the BOT, area appears more diffuse than a discrete area. 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 [id number]-Dojpvfnxpfamyt-Aqwyng urg Work Phone: Evaluation note Diagnosis Hypothyroidism (acquired) Unspecified [facility]othy[facility] Congestion of nasal sinus- Primary Other diseases of nasal cavity and [facility]uses [facility] Depression with anxiety Dysthymic disorder [facility] Diagnosis Irritable bowel syndrome, unspecified type [facility] Diagnosis Suspected COVID-19 virus infection [facility] Diagnosis COVID-19- Primary [facility] Diagnosis Chronic constipation- Primary Unspecified constipation Depression with anxiety Dysthymic disorder [facility] Depression with anxiety Dysthymic disorder [facility] Diagnosis Hypothyroidism (acquired) Unspecified hypothyroidism Depression with anxiety Dysthymic disorder [facility] Diagnosis Onset Date Resolution Status Regional lymph node metastasis present chronic Tongue cancer chronic 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 Encounter for screening for malignant neoplasm of lung acute History of tobacco use [facility] Work Phone: Evaluation note* Diagnosis Onset Date Resolution Status Encounter for screening for malignant neoplasm of lung acute History of tobacco use [facility] Work Phone: Evaluation note* Diagnosis Hypothyroidism (acquired)- Primary Unspecified hypothyroidism Secondary and unspecified malignant neoplasm of lymph node, unspecified (HCC) Depression with anxiety Dysthymic disorder Bruising Contusion of unspecified site Obesity (BMI 30-39.9) Abnormal finding of blood chemistry, unspecified Irritable bowel syndrome, unspecified type Malignant neoplasm of base of tongue (HCC) Malignant neoplasm of base of tongue [facility] Diagnosis Need for vaccination- Primary Need for prophylactic vaccination and inoculation against unspecified single disease [facility] Diagnosis Depression with anxiety Dysthymic disorder [facility] Encounter for immunization- Primary Malignant neoplasm of base of tongue (HCC) Malignant neoplasm of base of tongue Hypothyroidism (acquired) Unspecified hypothyroidism Abnormal mammogram Abnormal mammogram, unspecified Irritable bowel syndrome with constipation Irritable bowel syndrome Depression with anxiety Dysthymic disorder [facility] Diagnosis Encounter for immunization- Primary Malignant neoplasm of base of tongue (HCC) Malignant neoplasm of base of tongue Hypothyroidism (acquired) Unspecified hypothyroidism Abnormal mammogram Abnormal mammogram, unspecified Irritable bowel syndrome with constipation Irritable bowel syndrome Depression with anxiety Dysthymic disorder [facility] Diagnosis Hypothyroidism (acquired) Unspecified hypothyroidism Depression with anxiety Dysthymic disorder [facility]* Diagnosis Malignant neoplasm of base of tongue (HCC)- Primary Malignant neoplasm of base of tongue Abnormal mammogram Abnormal mammogram, unspecified Hypothyroidism (acquired) Unspecified hypothyroidism Healthcare maintenance Irritable bowel syndrome with constipation Irritable bowel syndrome [facility]* Diagnosis Onset Date Resolution Status Hypothyroidism chronic Regional lymph node metastasis present chronic Tongue cancer chronic 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 Encounter for screening for malignant neoplasm of lung acute History of tobacco use [facility] Work Phone: Evaluation note* Diagnosis Need for vaccination- Primary Need for prophylactic vaccination and inoculation against unspecified single disease [facility] Diagnosis RSV infection- Primary documented in this encounter [facility] Work Phone: Evaluation note* Diagnosis Depression with anxiety Dysthymic disorder [facility]* Diagnosis Mild major depression (HCC)- Primary Major depressive disorder, single episode, mild [facility]* Diagnosis Mild major depression (HCC)- Primary Major depressive disorder, single episode, mild [facility]* Diagnosis Hypothyroidism (acquired) Unspecified hypothyroidism [facility]* Diagnosis Hypothyroidism (acquired)- Primary Unspecified hypothyroidism Mild major depression (HCC) Major depressive disorder, single episode, mild Malignant neoplasm of base of tongue (HCC) Malignant neoplasm of base of tongue Obesity (BMI 30-39.9) [facility]* Diagnosis Hypothyroidism, unspecified type- Primary [facility]* Diagnosis Family history of diabetes mellitus (DM)- Primary Family history of diabetes mellitus Depression with anxiety Dysthymic disorder Cigarette nicotine dependence without complication Mass of right side of neck Obesity, Class I, BMI 30-34.9 Hypothyroidism (acquired)- Primary Unspecified hypothyroidism Mass of right side of neck Hypothyroidism (acquired)- Primary Unspecified hypothyroidism Cold intolerance Other general symptoms Depression with anxiety Dysthymic disorder Hypothyroidism (acquired)- Primary Unspecified hypothyroidism Depression with anxiety Dysthymic disorder Scalp pain- Primary Depression with anxiety Dysthymic disorder Hypothyroidism (acquired) Unspecified hypothyroidism Screening for breast cancer Breast screening, unspecified Hypothyroidism (acquired) Unspecified hypothyroidism Scalp pain Depression with anxiety- Primary Dysthymic disorder Hypothyroidism (acquired) Unspecified hypothyroidism Fatigue, unspecified type Malignant neoplasm of base of tongue (HCC) Malignant neoplasm of base of tongue Depression with anxiety- Primary Dysthymic disorder Hypothyroidism (acquired) Unspecified hypothyroidism Irritable bowel syndrome, unspecified type Need for vaccination- Primary Need for prophylactic vaccination and inoculation against unspecified single disease Hypothyroidism (acquired) Unspecified hypothyroidism Depression with anxiety Dysthymic disorder Insomnia, unspecified type Depression with anxiety- Primary Dysthymic disorder Chronic constipation- Primary Unspecified constipation Encounter for screening mammogram for malignant neoplasm of breast Wellness examination Vitamin D deficiency Hypothyroidism (acquired) Unspecified hypothyroidism Chronic neck pain Cervicalgia Wellness examination- Primary Depression with anxiety Dysthymic disorder Need for vaccination Need for prophylactic vaccination and inoculation against unspecified single disease Secondary and unspecified malignant neoplasm of lymph node, unspecified (HCC) Chronic constipation- Primary Unspecified constipation Depression with anxiety Dysthymic disorder Hypothyroidism (acquired) Unspecified hypothyroidism Depression with anxiety Dysthymic disorder Hypothyroidism (acquired)- Primary Unspecified hypothyroidism Secondary and unspecified malignant neoplasm of lymph node, unspecified (HCC) Depression with anxiety Dysthymic disorder Bruising Contusion of unspecified site Obesity (BMI 30-39.9) Abnormal finding of blood chemistry, unspecified Irritable bowel syndrome, unspecified type Malignant neoplasm of base of tongue (HCC) Malignant neoplasm of base of tongue Encounter for immunization- Primary Malignant neoplasm of base of tongue (HCC) Malignant neoplasm of base of tongue Hypothyroidism (acquired) Unspecified hypothyroidism Abnormal mammogram Abnormal mammogram, unspecified Irritable bowel syndrome with constipation Irritable bowel syndrome Depression with anxiety Dysthymic disorder Malignant neoplasm of base of tongue (HCC)- Primary Malignant neoplasm of base of tongue Abnormal mammogram Abnormal mammogram, unspecified Hypothyroidism (acquired) Unspecified hypothyroidism Healthcare maintenance Irritable bowel syndrome with constipation Irritable bowel syndrome Depression with anxiety Dysthymic disorder [facility] Diagnosis Xerostomia due to radiotherapy- Primary Pharyngoesophageal dysphagia Dysphagia, pharyngoesophageal phase Malignant neoplasm of oropharynx (Multi) Malignant neoplasm of oropharynx, unspecified site Acquired hypothyroidism Unspecified hypothyroidism documented in this encounter [facility] Work Phone: Evaluation note* Diagnosis Family history of diabetes mellitus (DM)- Primary Family history of diabetes mellitus Depression with anxiety Dysthymic disorder Cigarette nicotine dependence without complication Mass of right side of neck Obesity, Class I, BMI 30-34.9 Hypothyroidism (acquired)- Primary Unspecified hypothyroidism Mass of right side of neck Hypothyroidism (acquired)- Primary Unspecified hypothyroidism Cold intolerance Other general symptoms Depression with anxiety Dysthymic disorder Hypothyroidism (acquired)- Primary Unspecified hypothyroidism Depression with anxiety Dysthymic disorder Scalp pain- Primary Depression with anxiety Dysthymic disorder Hypothyroidism (acquired) Unspecified hypothyroidism Screening for breast cancer Breast screening, unspecified Hypothyroidism (acquired) Unspecified hypothyroidism Scalp pain Depression with anxiety- Primary Dysthymic disorder Hypothyroidism (acquired) Unspecified hypothyroidism Fatigue, unspecified type Malignant neoplasm of base of tongue (HCC) Malignant neoplasm of base of tongue Depression with anxiety- Primary Dysthymic disorder Hypothyroidism (acquired) Unspecified hypothyroidism Irritable bowel syndrome, unspecified type Need for vaccination- Primary Need for prophylactic vaccination and inoculation against unspecified single disease Hypothyroidism (acquired) Unspecified hypothyroidism Depression with anxiety Dysthymic disorder Insomnia, unspecified type Depression with anxiety- Primary Dysthymic disorder Chronic constipation- Primary Unspecified constipation Encounter for screening mammogram for malignant neoplasm of breast Wellness examination Vitamin D deficiency Hypothyroidism (acquired) Unspecified hypothyroidism Chronic neck pain Cervicalgia Wellness examination- Primary Depression with anxiety Dysthymic disorder Need for vaccination Need for prophylactic vaccination and inoculation against unspecified single disease Secondary and unspecified malignant neoplasm of lymph node, unspecified (HCC) Chronic constipation- Primary Unspecified constipation Depression with anxiety Dysthymic disorder Hypothyroidism (acquired) Unspecified hypothyroidism Depression with anxiety Dysthymic disorder Hypothyroidism (acquired)- Primary Unspecified hypothyroidism Secondary and unspecified malignant neoplasm of lymph node, unspecified (HCC) Depression with anxiety Dysthymic disorder Bruising Contusion of unspecified site Obesity (BMI 30-39.9) Abnormal finding of blood chemistry, unspecified Irritable bowel syndrome, unspecified type Malignant neoplasm of base of tongue (HCC) Malignant neoplasm of base of tongue Encounter for immunization- Primary Malignant neoplasm of base of tongue (HCC) Malignant neoplasm of base of tongue Hypothyroidism (acquired) Unspecified hypothyroidism Abnormal mammogram Abnormal mammogram, unspecified Irritable bowel syndrome with constipation Irritable bowel syndrome Depression with anxiety Dysthymic disorder Malignant neoplasm of base of tongue (HCC)- Primary Malignant neoplasm of base of tongue Abnormal mammogram Abnormal mammogram, unspecified Hypothyroidism (acquired) Unspecified hypothyroidism Healthcare maintenance Irritable bowel syndrome with constipation Irritable bowel syndrome Depression with anxiety Dysthymic disorder documented in this encounter [facility] Instructions * Patient Instructions - Felisa Abbott MD - 09/18/2017 9:39 AM EDT Formatting of this note may be different from the original. Problem List Items Addressed This Visit Other Depression with Anxiety Mass of right side of neck Will look for a potential source of tumor including CT of the abdomen and chest. Lesion can be fromthe neck itself or from th chest or abdomen The neck. Will also check a mammogram as well as some basic lab work work. Relevant Medications amoxicillin-clavulanate (AUGMENTIN) 500-125 mg per tablet L acidophil/B lactis/B longum (FLORAJEN3 ORAL) Other Relevant Orders CT Abdomen Pelvis With Contrast CT Chest Thorax With Contrast Mammography Screening Bilateral TSH with Reflex Free T4 Comprehensive Metabolic Panel Nicotine Dependence Since chantrix has been effective prior will write for a refill. Relevant Medications varenicline (CHANTIX RENETTA) 0.5 mg (11)- 1 mg (42) tablet varenicline (CHANTIX) 1 mg tablet Obesity, Class I, BMI 30-34.9 Calorie counting is the basis for all weight loss. Typically weigh or measure everything that you place in your mouth. Pay attention to those things that you think are free. Include the calories associated with anything you drink as well. Most that you can buy is required by law to have informationon it which breaks down the caloric values [...] weight loss is minimal without exercise since thebody with turn down the BMI or thermostat [...] and allow cool down until at least retirement back to the pre exercise hear rate. Therefor if resting heart rate was 70 and your target heart rate was 120. You need to keep moving and work the muscles until you heart rate is below 95 beats per minute. This reduces cramping and the risk of cardiac irritability post exercise. Most weight loss can be obtained best by cycling your calories. By counting the calories and then setting your intake at the minimum needs to maintain your lean body mass you conventional body not toturn down its basal metabolic rate. 80% or more of your total caloric needs are burned due to your basic metabolic rate. So tell your body that you are are dieting and allowing it to turn down your ba kvng metabolic rate sabotages your ability to lose weight. The way to do this and still lose weight his first start a diet at your minimum needs calculated by year estimated lean body mass. Then the first 4 days of every week set your [...] loss or almost 20 pounds per year. Other Visit Diagnoses Family history of diabetes mellitus (DM) - Primary Relevant Orders POC Glucose Device (Completed) POC Glycosylated Hemoglobin (Hb A1C) (Completed) in this encounter* Patient Instructions - Felisa Abbott MD - 03/18/2018 2:35 PM EDT Formatting of this note may be different from the original. Problem List Items Addressed This Visit Endocrine Hypothyroidism (acquired) - Primary Last TSH was 3.3 ( o.3 -3.7 is normal. Last T4 free was within normal limits as well. Suggest continue Synthroid 50 mcg per day and repeat labs in 6 months. Relevant Medications levothyroxine (SYNTHROID, LEVOTHROID) 50 MCG tablet Other Relevant Orders TSH with Reflex Free T4 Other Cold intolerance Consider low thyroid, then low iron or anemia, and lastly anything that Would trigger or indicate cell turnover in the body. I Include radiation , chemo, infection and allergies. Review of recent labs suggest mild iron deficiency but no anemia. Anemia is wether or not you have low hemoglobin or hematocrit. Iron deficiency is if your sell are pale. Take one a day women plus iron. Depression with anxiety Anxiety and restlessness can be due to a deficiency of a chemical called Serotonin in the brain. Ifnot enough, then the brain uses Norepinephrine. We had a medication that in the higher doses raisesSerotonin and blocks the effects of Norepinephrine. in this encounter* Patient Instructions - Felisa Abbott MD - 05/15/2018 2:29 PM EST Formatting of this note may be different from the original. Problem List Items Addressed This Visit Endocrine Hypothyroidism (acquired) - Primary If any signs or symptoms similar to the ones you ad prior to starting the thyroid supplement in 08/2017 then we would check the Tsh and T4 free sooner. If not then the normal T4 and TSH should be rechecked in 6 months following the last check in 02/2018. Tsh and T4 to be checked 3 months after change. 6 months after normalization and then yearly thereafter. Other Depression with anxiety The hamsters on the wheel suggest that the Cymbalta is helping with the increase in Norepinephrine component, but sleep onset is usually treated with another low dose medication called Trazadone. in this encounter* Patient Instructions* Kirstie Hines CNP - 10/29/2018 8:52 AM EDT Problem List Items Addressed This Visit Endocrine Hypothyroidism (acquired) I want to get a repeat TSH to see if we need to adjust your medication. If your levels are not responding to higher dose of mediation we may look at sending you to an cylinder tester. Relevant Orders TSH with Reflex Free T4 Other Depression with anxiety They Cymbalta and trazodone both help with the depression and anxiety but do not seem to be enough.Will send in script for 60 mg of Cymbalta daily, let me know if you have any issues with this medication. [facility] [id number] [place] [address] Relevant Medications traZODone (DESYREL) 50 MG tablet Scalp pain - Primary You are having severe scalp pain that you rate higher than a 10. You are wincing when you move yourhead or talk. You were seen at [facility] ER last night and CT was negative. I will make copies of the ER report and suggest you go to [place] ER with your history of radiation and chemo on your neck so recently. Other Visit Diagnoses Screening for breast cancer Relevant Orders Mammography Screening Bilateral documented in this encounter* Patient Instructions* Kirstie Hines CNP - 11/05/2018 9:54 AM EDT Problem List Items Addressed This Visit Endocrine Hypothyroidism (acquired) Thyroid level is much better with the 100 mcg a day of levothyroxine. I will recheck your labs in 3months to make sure it is stable. If you continue to have big fluctuations in your labs we may lookat doing a thyroid ultrasound and going to endocrinology. Relevant Medications levothyroxine (SYNTHROID, LEVOTHROID) 100 MCG tablet Other Scalp pain The antibiotics seem to be helping which makes me believe you had a cellulitis of the scalp even though you had no redness or drainage. If you start to get worse please let me know. Next step I believe would be to evaluate for nerve pain. documented in this encounter* Patient Instructions* Kirstie Hines CNP - 06/08/2019 11:23 AM EST Problem List Items Addressed This Visit Endocrine Hypothyroidism (acquired) Relevant Orders TSH with Reflex Free T4 Other Depression with anxiety Relevant Medications DULoxetine (CYMBALTA) 60 MG capsule DULoxetine (CYMBALTA) 20 MG capsule Fatigue - Primary Relevant Orders TSH with Reflex Free T4 CBC and Differential Basic Metabolic Panel Other Visit Diagnoses Need for influenza vaccination Relevant Medications flu vac qv 2019,18yr up,rc,PF, (FLUBLOK QUAD) syringe Other Relevant Orders Influenza vaccine IIV4 18 yo or >,Flublok Quad (Completed) If any referrals were placed at the time of your visit please allow 2 weeks for processing. If you haven't heard from anyone within 2 weeks please contact my office so we can look into the status of your referral. If you were given any labs today please ensure they are completed according to the directions given. Once labs are completed please allow 1-2 weeks for us to receive the results, review them, and letyou know what steps, if any, are needed next. If you haven't heard from us after that please call to inquire. If labs were ordered to be done PRIOR to your next visit we will discuss the results at the time ofyour office visit. If any procedures or imaging studies were ordered that must be prior authorized please give us 2 weeks to get them approved. Once approved someone should call you to schedule them or give you a date and time that they were scheduled for. If you haven't heard anything within 2 weeks of the office visit please call the office so we can look into their status. Customer Service/Billing Questions: [phone] MyChart Assistance: [phone] or [phone] Financial Assistance: [phone] or [phone] As of June 01, 2019 my schedule will be changing: Saturday 7 am to 5 pm Saturday 7 am to 5 pm Saturday closed 7 am to 5 pm Saturday 7 am to 1 pm documented in this encounter* Patient Instructions* Kirstie Hines CNP - 01/26/2020 9:04 AM EDT Problem List Items Addressed This Visit Digestive Malignant neoplasm of base of tongue (HCC) Relevant Orders CBC and Differential Comprehensive Metabolic Panel Endocrine Hypothyroidism (acquired) Relevant Orders Lipid Panel TSH with Reflex Free T4 Other Visit Diagnoses Acute right-sided low back pain without sciatica - Primary Relevant Medications HYDROcodone-acetaminophen (NORCO) 5-325 mg per tablet Other Relevant Orders POC Urinalysis Dipstick (Completed) XR Lumbar Spine 2-3 Views (Standard) (Completed) If any referrals were placed at the time of your visit please allow 2 weeks for processing. If you haven't heard from anyone within 2 weeks please contact my office so we can look into the status of your referral. If you were given any labs today please ensure they are completed according to the directions given. Once labs are completed please allow 1-2 weeks for us to receive the results, review them, and letyou know what steps, if any, are needed next. If you haven't heard from us after that please call to inquire. If labs were ordered to be done PRIOR to your next visit we will discuss the results at the time ofyour office visit. If any procedures or imaging studies were ordered that must be prior authorized please give us 2 weeks to get them approved. Once approved someone should call you to schedule them or give you a date and time that they were scheduled for. If you haven't heard anything within 2 weeks of the office visit please call the office so we can look into their status. Customer Service/Billing Questions: [phone] MyChart Assistance: [phone] or [phone] Financial Assistance: [phone] or [phone] As of June 01, 2019 my schedule will be changing: Saturday 7 am to 5 pm Saturday 7 am to 5 pm Saturday closed 7 am to 5 pm Saturday 7 am to 1 pm documented in this encounter* Patient Instructions* Kirstie Hines CNP - 02/05/2020 10:25 AM EDT Problem List Items Addressed This Visit Endocrine Hypothyroidism (acquired) You are having no symptoms with a slightly low TSH so we will leave the dose alone. If you develop anxiety, can't sleep, palpitations, hot and sweaty more than usual let me know. Other Depression with anxiety [facility] [address] [place], [place] [address] [facility] [address] [place], [id number] Insomnia Stable on Trazodone. Other Visit Diagnoses Need for vaccination - Primary Relevant Medications flu vac qv 2020,18yr up,rc,PF, (FLUBLOK QUAD) syringe Other Relevant Orders Influenza vaccine IIV4 18 yo or >,Flublok Quad (Completed) If any referrals were placed at the time of your visit please allow 2 weeks for processing. If you haven't heard from anyone within 2 weeks please contact my office so we can look into the status of your referral. If you were given any labs today please ensure they are completed according to the directions given. Once labs are completed please allow 1-2 weeks for us to receive the results, review them, and letyou know what steps, if any, are needed next. If you haven't heard from us after that please call to inquire. If labs were ordered to be done PRIOR to your next visit we will discuss the results at the time ofyour office visit. If any procedures or imaging studies were ordered that must be prior authorized please give us 2 weeks to get them approved. Once approved someone should call you to schedule them or give you a date and time that they were scheduled for. If you haven't heard anything within 2 weeks of the office visit please call the office so we can look into their status. Customer Service/Billing Questions: [phone] MyChart Assistance: [phone] or [phone] Financial Assistance: [phone] or [phone] As of June 01, 2019 my schedule will be changing: Saturday 7 am to 5 pm Saturday 7 am to 5 pm Saturday closed 7 am to 5 pm Saturday 7 am to 1 pm documented in this encounter* Patient Instructions* Kirstie Hines CNP - 02/05/2019 10:26 AM EDT Problem List Items Addressed This Visit Digestive Malignant neoplasm of base of tongue (HCC) Relevant Orders CBC and Differential (Completed) Comprehensive Metabolic Panel (Completed) Vitamin D, Total, 25-OH (Completed) Hepatitis Panel, Acute (Completed) Endocrine Hypothyroidism (acquired) Will recheck your thyroid levels to make sure everything is stable. Relevant Orders TSH with Reflex Free T4 (Completed) Thyroid peroxidase antibody (TPO) (Completed) Other Depression with anxiety - Primary I want you to keep taking your Cymbalta, we can look at adding a higher dose or adding another medication but I believe we need to try counseling first. You likely have PTSD from the tongue cancer and the aggressive treatments. This has affected every part of your life. Hopefully counseling can help you get in a better mental place. [facility] [address] [place] [address] Relevant Orders TSH with Reflex Free T4 (Completed) Fatigue Relevant Orders CBC and Differential (Completed) Comprehensive Metabolic Panel (Completed) Vitamin D, Total, 25-OH (Completed) If any referrals were placed at the time of your visit please allow 2 weeks for processing. If you haven't heard from anyone within 2 weeks please contact my office so we can look into the status of your referral. If you were given any labs today please ensure they are completed according to the directions given. Once labs are completed please allow 1-2 weeks for us to receive the results, review them, and letyou know what steps, if any, are needed next. If you haven't heard from us after that please call to inquire. If labs were ordered to be done PRIOR to your next visit we will discuss the results at the time ofyour office visit. If any procedures or imaging studies were ordered that must be prior authorized please give us 2 weeks to get them approved. Once approved someone should call you to schedule them or give you a date and time that they were scheduled for. If you haven't heard anything within 2 weeks of the office visit please call the office so we can look into their status. Customer Service/Billing Questions: [phone] MyChart Assistance: [phone] or [phone] Financial Assistance: [phone] or [phone] documented in this encounter* Patient Instructions* Kirstie Hines CNP - 09/05/2020 10:39 AM EDT Problem List Items Addressed This Visit Endocrine Hypothyroidism (acquired) Relevant Orders Lipid Panel TSH with Reflex Free T4 Other Chronic neck pain Will continue to prescribe pain medication as needed for pain, stable. Wellness examination The lab is open here at the office M-F 730am-4pm, you do not need an appointment, just walk in. I would like you to obtain some fasting blood work. This means that you can not have anything to eat or drink for about 8-10 hours before your blood is drawn. The only thing you are allowed to have before your labs is a glass of water or a cup of BLACK coffee. Thank you. Get your labs sometime in the week or so before your next apt. Relevant Orders CBC and Differential Comprehensive Metabolic Panel Lipid Panel TSH with Reflex Free T4 Other Visit Diagnoses Chronic constipation - Primary Relevant Medications polyethylene glycol (MIRALAX) 17 gram powder Encounter for screening mammogram for malignant neoplasm of breast Relevant Orders Mammography Screening Markel Bilateral Vitamin D deficiency Relevant Orders Vitamin D, Total, 25-OH If any referrals were placed at the time of your visit please allow 2 weeks for processing. If you haven't heard from anyone within 2 weeks please contact my office so we can look into the status of your referral. If you were given any labs today please ensure they are completed according to the directions given. Once labs are completed please allow 1-2 weeks for us to receive the results, review them, and letyou know what steps, if any, are needed next. If you haven't heard from us after that please call to inquire. If labs were ordered to be done PRIOR to your next visit we will discuss the results at the time ofyour office visit. If any procedures or imaging studies were ordered that must be prior authorized please give us 2 weeks to get them approved. Once approved someone should call you to schedule them or give you a date and time that they were scheduled for. If you haven't heard anything within 2 weeks of the office visit please call the office so we can look into their status. Customer Service/Billing Questions: [phone] MyChart Assistance: [phone] or [phone] Financial Assistance: [phone] or [phone] documented in this encounter Assessments Diagnosis Family history of diabetes m ellitus (DM) - Primary Family history of diabetes mellitus Depression with anxiety Dysthymic disorder Cigarette nicotine dependenc e without complication Mass of right side of neck Obesity, Class I, BMI 30-34. 9 Diagnosis Hypothyroidism (acquired)- Primary Unspecified hypothyroidism Cold intolerance Other general symptoms Depression with anxiety Dysthymic disorder Diagnosis Hypothyroidism (acquired)- Primary Unspecified hypothyroidism Depression with anxiety Dysthymic disorder Diagnosis Scalp pain- Primary Depression with anxiety Dysthymic disorder Hypothyroidism (acquired) Unspecified hypothyroidism Screening for breast cancer Breast screening, unspecified Diagnosis Hypothyroidism (acquired) Unspecified hypothyroidism Scalp pain Diagnosis Fatigue, unspecified type Hypothyroidism (acquired) Unspecified hypothyroidism Need for influenza vaccination Need for prophylactic vaccination and inoculation against influenza Depression with anxiety Dysthymic disorder Diagnosis Acute right-sided low back pain without sciatica- Primary Hypothyroidism (acquired) Unspecified hypothyroidism Malignant neoplasm of base of tongue (HCC) Malignant neoplasm of base of tongue Diagnosis Need for vaccination- Primary Need for prophylactic vaccination and inoculation against unspecified single disease Hypothyroidism (acquired) Unspecified hypothyroidism Depression with anxiety Dysthymic disorder Insomnia, unspecified type Diagnosis Back pain, unspecified back location, unspecified back pain laterality, unspecified chronicity- Primary Diagnosis Back pain, unspecified back location, unspecified back pain laterality, unspecified chronicity Diagnosis Acute right-sided low back pain with sciatica, sciatica laterality unspecified- Primary Diagnosis Flu-like symptoms- Primary Diagnosis Depression with anxiety- Primary Dysthymic disorder Hypothyroidism (acquired) Unspecified hypothyroidism Fatigue, unspecified type Malignant neoplasm of base of tongue (HCC) Malignant neoplasm of base of tongue Diagnosis Chronic constipation- Primary Unspecified constipation Encounter for screening mammogram for malignant neoplasm of breast Wellness examination Vitamin D deficiency Hypothyroidism (acquired) Unspecified hypothyroidism Chronic neck pain Cervicalgia Summary Purpose Family History No Family History Records FoundUnknown Family Member Name Dates Details Family history of myocardial infarction: Father(V17.3, Z82.49) Status:Active Family history of diabetes m ellitus: Mother, Father(V18.0, Z83.3) Status:Active Unknown Family Member Name Dates Details Family history of myocardial infarction: Father(V17.3, Z82.49) Status:Active Family history of diabetes m ellitus: Mother, Father(V18.0, Z83.3) Status:Active Relationship Condition Age at Onset Recorded Date/T rachel father Malignant neoplasm of lung Unknown Diabetes mellitus Unknown mother Diabetes mellitus Unknown Unknown Family Member Name Dates Details Family history of myocardial infarction: Father(V17.3, Z82.49) Status:Active Family history of diabetes m ellitus: Mother, Father(V18.0, Z83.3) Status:Active Unknown Family Member Name Dates Details Family history of myocardial infarction: Father(V17.3, Z82.49) Status:Active Family history of diabetes m ellitus: Mother, Father(V18.0, Z83.3) Status:Active Unknown Family Member Name Dates Details Family history of myocardial infarction: Father(V17.3, Z82.49) Status:Active Family history of diabetes m ellitus: Mother, Father(V18.0, Z83.3) Status:Active Unknown Family Member Name Dates Details Family history of diabetes m ellitus: Mother, Father(V18.0, Z83.3) Status:Active Family history of myocardial infarction: Father(V17.3, Z82.49) Status:Active Unknown Family Member Name Dates Details Family history of myocardial infarction: Father(V17.3, Z82.49) Status:Active Family history of diabetes m ellitus: Mother, Father(V18.0, Z83.3) Status:Active Unknown Family Member Name Dates Details Family history of myocardial infarction: Father(V17.3, Z82.49) Status:Active Family history of diabetes m ellitus: Mother, Father(V18.0, Z83.3) Status:Active Advance Directives No Advanced Directives Records FoundDocuments on File Type Date Recorded 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 Advance Directives and Living Will Documents on File Type Date Recorded 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 Advance Directives and Living Will Documents on File Type Date Recorded 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 Advance Directives and Livin g Will 06/13/2020 2:39 PM Documents on File Type Date Recorded 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 Advance Directives and Livin g Will 06/13/2020 2:39 PM Documents on File Type Date Recorded 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 Advance Directives and Livin g Will 05/23/2021 1:36 PM Documents on File Type Date Recorded 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 Health Literacy Patient Response: Rarely Are you experiencing any side effects or adverse reactions to your medications? Patient response: No Do you have any problems taking your medications? Patient Response: No Patient states they do understand their medications Are you taking any [id number] medications or supplements? Patient Response: Nutritional supplements like Boost or Ensure Since last being seen in this office, have you seen another healthcare provider? Patient Response: No * Felisa Abbott MD - 03/18/2018 2:21 PM EDT Formatting of this note may be different from the original. Subjective Patient ID: Fco Garnett is a 47 y.o. female. HPI interval visit: Restless leg syndrome: Patient presents with a thought that she might have restless leg syndrome. She describes a sensation that she is not comfortable and needs to move. It does not occur particularly at night but really most of the time. But is not disturbing her sleep. Anxiety: Patient describes a sensation of feeling anxious as if something bad is going to happen. She denies any panic attacks. She has feels jumpy. Denies any sleepiness or any inability to rest. She does report inability to wake rested however. Hypothyroid: Patient has had a history of thyroid disease since 2018. Control of her thyroid disease has been stable. fatigue, feeling cold and cold intolerance, anxiousness Last TSH March 12, 2018. Current dose of levothyroxine is 50 mcg once a day. The following portions of the patient's history were reviewed and updated as appropriate: allergies, current medications, past family history, past medical history, past social history, past surgicalhistory and problem list. Review of Systems Constitutional: [...] sleep disturbance. The patient is nervous/anxious. Objective Vitals: 03/18/18 1354 BP: 101/70 BP Location: Left arm Patient Position: Sitting BP Cuff Size: Adult Pulse: 82 Resp: 16 Temp: 98 F (36.7 C) TempSrc: Oral SpO2: 97% Weight: 74.8 kg (165 lb) Height: 5' 2 Estimated body mass index is 30.18 kg/m as calculated from the following: Height as of this encounter: 5' 2. Weight as of this encounter: 74.8 kg (165 lb). Physical Exam Constitutional: Vital signs are normal. [...] normal. There is no tenderness. There is noCVA tenderness. No hernia. Neurological: She is alert. She has normal strength. No cranial nerve deficit. She displays a negative Romberg sign. Skin: Skin is warm, dry and intact. No rash noted. Psychiatric: She has a normal mood and affect. Her speech is normal and behavior is normal. Thoughtcontent normal. Very pleasant but tearful at times Assessment/Plan: Problem List Items Addressed This Visit Endocrine Hypothyroidism (acquired) - Primary Last TSH was 3.3 ( o.3 -3.7 is normal. Last T4 free was within normal limits as well. Suggest continue Synthroid 50 mcg per day and repeat labs in 6 months. Relevant Medications levothyroxine (SYNTHROID, LEVOTHROID) 50 MCG tablet Other Relevant Orders TSH with Reflex Free T4 Other Cold intolerance Consider low thyroid, then low iron or anemia, and lastly anything that would trigger or indicate cell turnover in the body. It Include radiation , chemo, infection and allergies. Review of recent labs suggest mild iron deficiency but no anemia. Anemia is wether or not you have low hemoglobin or hematocrit. Iron deficiency is if your sell are pale. Take one a day women plus iron. Depression with anxiety Anxiety and restlessness can be due to a deficiency of a chemical called Serotonin in the brain. Ifnot enough, then the brain uses Norepinephrine. We had a medication that in the higher doses raisesSerotonin and blocks the effects of Norepinephrine. For any new medications prescribed today, patient was educated about indications for the medication, how to take the medication and potential side effects of the medications. in this encounter* Felisa Abbott MD - 05/15/2018 2:23 PM EST Formatting of this note may be different from the original. Subjective Patient ID: Fco Garnett is a 47 y.o. female. HPI Interval VIsit Hypothyroid: Patient has had a history of thyroid disease since 08/2017 Control of her thyroid disease has been stable. denies fatigue, weight changes, heat/cold intolerance, bowel/skin changes or CVSsymptoms Last TSH March 12, 2018. Current dose of levothyroxine is 50 mcg once a day. The following portions of the patient's history were reviewed and updated as appropriate: allergies, current medications, past family history, past medical history, past social history, past surgicalhistory and problem list. Review of Systems Constitutional: [...] sleep disturbance. The patient is nervous/anxious. Objective Vitals: 05/15/18 1349 BP: 108/72 BP Location: Right arm Patient Position: Sitting BP Cuff Size: Adult Pulse: 86 Resp: 16 Temp: 97.8 F (36.6 C) TempSrc: Oral SpO2: 98% Weight: 72.6 kg (160 lb) Height: 5' 2 Estimated body mass index is 29.26 kg/m as calculated from the following: Height as of this encounter: 5' 2. Weight as of this encounter: 72.6 kg (160 lb). Physical Exam Constitutional: Vital signs are normal. [...] normal. There is no tenderness. There is noCVA tenderness. No hernia. Neurological: She is alert. She has normal strength. No cranial nerve deficit. She displays a negative Romberg sign. Skin: Skin is warm, dry and intact. No rash noted. Psychiatric: She has a normal mood and affect. Her speech is normal and behavior is normal. Thoughtcontent normal. Very pleasant but tearful at times Assessment/Plan: Problem List Items Addressed This Visit Endocrine Hypothyroidism (acquired) - Primary If any signs or symptoms similar to the ones you ad prior to starting the thyroid supplement in 08/2017 then we would check the Tsh and T4 free sooner. If not then the normal T4 and TSH should be rechecked in 6 months following the last check in 02/2018. Tsh and T4 to be checked 3 months after change. 6 months after normalization and then yearly thereafter. Other Depression with anxiety The hamsters on the wheel suggest that the Cymbalta is helping with the increase in Norepinephrine component, but sleep onset is usually treated with another low dose medication called Trazadone. Relevant Medications traZODone (DESYREL) 50 MG tablet For any new medications prescribed today, patient was educated about indications for the medication, how to take the medication and potential side effects of the medications. in this encounter* Spring, Kirstie Summers CNP - 10/29/2018 8:34 AM EDT Subjective Patient ID: Fco Garnett is a 48 y.o. female. Patient presents today with acute right side scalp pain and is here for routine medication management and to follow up on hypothyroid. Hypothyroid: Patient states her only significant symptoms with low thyroid has been fatigue. This is hard to gauge because she is still recovering from tongue cancer. Last chemo and radiation was November 2017. Patient is currently on Levothyroxine 100 mg a day. Lab Results Component Value Date TSH 25.60 (H) 09/16/2018 Depression: Patient is currently on Duloxetine 30 mg daily and Trazadone for depression. She takes both of these at bedtime. She states they are effective but during the day she continues to have more symptoms and at times her mid races and won't slow down from anxiety. Scalp pain: Patient has been having scalp pain along the other right side behind her ear for the past 3 weeks and it is continually getting worse. At this point she states the pain is greater than a 10/10. She winces to move her head, talk, or touch her hair. She went to [facility] yesterday and CT of head was negative so she was treated with Ibuprofen and sent home. Patient states she had to miss work due to the pain . She mentioned it to her radiation physician Dr. Ortzi in [place] and he was not sure what is causing the pain. The following portions of the patient's history were reviewed and updated as appropriate: allergies, current medications, past family history, past medical history, past social history, past surgicalhistory and problem list. Past Medical History: Diagnosis Date Adverse effect of radiation therapy 2018 [facility]/John Mattson MD Cancer of base of tongue (HCC) 2018 John Mattson MD Depression with anxiety 2014 Dr. Hammer Encounter for insertion of venous access port 10/14/2017 [facility]/Judd Concepcion MD Fatigue 2017 [facility]/Judd Concepcion MD History of colon polyps Info Gained From: 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) 09/28/2017 DL with Biopsy of BOT Mass-Dr Gaitan Tinnitus, right ear 2018 [facility]/John Mattson MD Chemo/XRT Past Surgical History: Procedure Laterality Date CHOLECYSTECTOMY [facility] ENDOSCOPY TRIPLE 09/23/2017 & 10/04/2017 [place] [facility]/Judd Concepcion MD Tumor mapping EXCISION LESION HEAD/NECK Right 09/16/2017 [facility]/Glenroy Gaitan MD 4cm HYSTERECTOMY 1995 Has one ovary LARYNGOSCOPY W/ LESION EXCISION Right 09/23/2017 Laryngoscopy with Biopsy of right base of tongue mass modified barium swallow 05/21/2018 NODE BIOPSY NECK 09/16/2017 Dr Gaitan ENT PEG TUBE PLACEMENT 10/04/2017 Dr Pascal PORT REMOVAL 07/03/2018 Dr Judd Concepcion-[facility] PORTACATH PLACEMENT 2018 TONGUE BIOPSY 09/26/2017 Dr Gaitan- DL with biopsy of BOT Mass VASCULAR SURGERY Left 2017 Port placement-Left Chest - Dr. 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 . Previous Medications LEVOTHYROXINE (SYNTHROID, LEVOTHROID) 100 MCG TABLET Take 1 (one) tablet (100 mcg total) by mouth once daily . Modified Medications Modified Medication Previous Medication DULOXETINE (CYMBALTA) 60 MG CAPSULE DULoxetine (CYMBALTA) 30 MG capsule Take 1 (one) capsule (60 mg total) by mouth daily . Take 1 (one) capsule (30 mg total) by mouth daily. TRAZODONE (DESYREL) 50 MG TABLET traZODone (DESYREL) 50 MG tablet Take 1 (one) tablet (50 mg total) by mouth nightly . Take 1 (one) tablet (50 mg total) by mouth nightly . Discontinued Medications No medications on file No Known Allergies Review of Systems Review of Systems Constitutional: Negative for activity change, appetite change, fatigue and unexpected weight change. HENT: Negative for congestion, ear discharge, ear pain, hearing loss, postnasal drip, rhinorrhea, sinus pressure, sinus pain and sneezing. Eyes: Negative for photophobia and visual disturbance. Floaters Respiratory: Negative for cough, chest tightness, shortness of breath and wheezing. Cardiovascular: Negative for chest pain and palpitations. Gastrointestinal: Negative for constipation, diarrhea, nausea and vomiting. Endocrine: Negative for cold intolerance and heat intolerance. Genitourinary: Negative for dysuria, frequency and urgency. Musculoskeletal: Negative for arthralgias, back pain and myalgias. Skin: Negative. Severe scalp pain Neurological: Negative for dizziness, light-headedness and headaches. Hematological: Negative. Psychiatric/Behavioral: Positive for dysphoric mood. Negative for sleep disturbance. The patient isnot nervous/anxious. Vitals: 10/29/18 0810 BP: 105/70 BP Location: Right arm Patient Position: Sitting BP Cuff Size: Adult Pulse: 72 Resp: 18 Temp: 97.8 F (36.6 C) TempSrc: Oral SpO2: 98% Weight: 73 kg (161 lb) Height: 5' 5 Body mass index is 26.79 kg/m . Computer keeps charting HE not SHE, patient is female. . Physical Exam Physical Exam Constitutional: He is oriented to person, place, and time. He appears well- developed and well-nourished. HENT: Head: Right Ear: Tympanic membrane and external ear normal. No swelling or tenderness. Left Ear: Tympanic membrane and external ear normal. No swelling or tenderness. Nose: Nose normal. Mouth/Throat: Oropharynx is clear and moist and mucous membranes are normal. edentulous Eyes: Conjunctivae, EOM and lids are normal. Neck: Normal range of motion and full passive range of motion without pain. No JVD present. Scarring to each side of neck from CA treatments Cardiovascular: Normal rate, regular rhythm and normal heart sounds. No murmur heard. Pulmonary/Chest: Effort normal and breath sounds normal. Musculoskeletal: Normal range of motion. Neurological: He is alert and oriented to person, place, and time. Skin: Skin is warm and dry. Psychiatric: He has a normal mood and affect. His speech is normal and behavior is normal. Assessment/Plan Problem List Items Addressed This Visit Endocrine Hypothyroidism (acquired) I want to get a repeat TSH to see if we need to adjust your medication. If your levels are not responding to higher dose of mediation we may look at sending you to an cylinder tester. Relevant Orders TSH with Reflex Free T4 Other Depression with anxiety They Cymbalta and trazodone both help with the depression and anxiety but do not seem to be enough.Will send in script for 60 mg of Cymbalta daily, let me know if you have any issues with this medication. [facility] [address] [place] [id number] Relevant Medications traZODone (DESYREL) 50 MG tablet Scalp pain - Primary You are having severe scalp pain that you rate higher than a 10. You are wincing when you move yourhead or talk. You were seen at [facility] last night and CT was negative. I will make copies of the ER report and suggest you go to [facility] with your history of radiation and chemo on your neck so recently. Other Visit Diagnoses Screening for breast cancer Relevant Orders Mammography Screening Bilateral No data recorded Goals Blood Pressure < 130/80 High blood pressure makes your heart work too hard. It can cause heart attack, stroke and kidney disease. Coping and Emotions Coping and Emotions: Manage stress Adapt to lifestyle changes Get support from family / friends HEMOGLOBIN A1C < 7.0 Blood sugar levels outside the normal range may be an indicator of diabetes. If any referrals were placed at today's visit the patient was instructed to call the office if theyhavn't heard anything about the referral within 2 weeks of today's visit. For any new medications prescribed today, patient was educated about indications for the medication, how to take the medication and potential side effects of the medications. documented in this encounter* Kirstie Hines CNP - 11/09/2018 7:33 PM EDT Subjective Patient ID: Fco Garnett is a 48 y.o. female. Patient is here for one-week follow-up for scalp pain. Patient has been having scalp pain along theother right side behind her ear for the past 4 weeks and it was continually getting worse. Before starting antibiotics last week she stated the pain was greater than a 10/10. She winced to move her head, talk, or touch her hair. She went to [facility] ER and [place] ER and the CT of head and MRI were both negative so she was treated with Ibuprofen and sent home. Patient states she had to miss workdue to the pain . She mentioned it to her radiation physician Dr. Ortiz in [place] and he was not sure what is causing the pain. Last week when she was here she was started on Augmentin and she states the pain is slowly improving. She denies any new symptoms. Also reviewed lab work that was recently done with the patient. The following portions of the patient's history were reviewed and updated as appropriate: allergies, current medications, past family history, past medical history, past social history, past surgicalhistory and problem list. Past Medical History: Diagnosis Date Adverse effect of radiation therapy 2018 [facility]/John Mattson MD Cancer of base of tongue (HCC) 2018 John Mattson MD Depression with anxiety 2014 Dr. Hammer Encounter for insertion of venous access port 10/14/2017 [facility]/Judd Concepcion MD Fatigue 2017 [facility]/Judd Concepcion MD History of colon polyps Info Gained From: 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) 09/28/2017 DL with Biopsy of BOT Mass-Dr Gaitan Tinnitus, right ear 2018 [facility]/John Mattson MD Chemo/XRT Past Surgical History: Procedure Laterality Date CHOLECYSTECTOMY [facility] ENDOSCOPY TRIPLE 09/23/2017 & 10/04/2017 [facility]/Judd Concepcion MD Tumor mapping EXCISION LESION HEAD/NECK Right 09/16/2017 [facility]/Glenroy Gaitan MD 4cm HYSTERECTOMY 1995 Has one ovary LARYNGOSCOPY W/ LESION EXCISION Right 09/23/2017 Laryngoscopy with Biopsy of right base of tongue mass modified barium swallow 05/21/2018 NODE BIOPSY NECK 09/16/2017 Dr Gaitan ENT PEG TUBE PLACEMENT 10/04/2017 Dr Pascal PORT REMOVAL 07/03/2018 Dr Judd [facility] PORTACATH PLACEMENT 2018 TONGUE BIOPSY 09/26/2017 Dr Gaitan- DL with biopsy of BOT Mass VASCULAR SURGERY Left 2017 Port placement-Left Chest - Dr. 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 DULOXETINE (CYMBALTA) 60 MG CAPSULE Take 1 (one) capsule (60 mg total) by mouth daily . LACTOBACILLUS ACIDOPHILUS (FLORAJEN) 460 MG (20 BILLION CELL) CAP Take one capsule by mouth in the morning. . TRAZODONE (DESYREL) 50 MG TABLET Take 1 (one) tablet (50 mg total) by mouth nightly . Modified Medications Modified Medication Previous Medication LEVOTHYROXINE (SYNTHROID, LEVOTHROID) 100 MCG TABLET levothyroxine (SYNTHROID, LEVOTHROID) 100 MCG tablet Take 1 (one) tablet (100 mcg total) by mouth once daily . Take 1 (one) tablet (100 mcg total) by mouth once daily . Discontinued Medications No medications on file No Known Allergies Review of Systems Review of Systems Constitutional: Negative for activity change, appetite change, fatigue and unexpected weight change. HENT: Negative for congestion, ear discharge, ear pain, hearing loss, postnasal drip, rhinorrhea, sinus pressure, sinus pain and sneezing. Eyes: Negative for photophobia and visual disturbance. Floaters Respiratory: Negative for cough, chest tightness, shortness of breath and wheezing. Cardiovascular: Negative for chest pain and palpitations. Gastrointestinal: Negative for constipation, diarrhea, nausea and vomiting. Endocrine: Negative for cold intolerance and heat intolerance. Genitourinary: Negative for dysuria, frequency and urgency. Musculoskeletal: Negative for arthralgias, back pain and myalgias. Skin: Negative. Severe scalp pain Neurological: Negative for dizziness, light-headedness and headaches. Hematological: Negative. Psychiatric/Behavioral: Positive for dysphoric mood. Negative for sleep disturbance. The patient isnot nervous/anxious. Vitals: 11/05/18 0941 BP: 107/70 Pulse: 64 Temp: 97.9 F (36.6 C) TempSrc: Oral SpO2: 96% Weight: 73 kg (161 lb) Height: 5' 5.04 Body mass index is 26.76 kg/m . . Physical Exam Physical Exam Constitutional: She is oriented to person, place, and time. She appears well- developed and well-nourished. HENT: Head: Right Ear: Tympanic membrane and external ear normal. No swelling or tenderness. Left Ear: Tympanic membrane and external ear normal. No swelling or tenderness. Nose: Nose normal. Mouth/Throat: Oropharynx is clear and moist and mucous membranes are normal. edentulous Eyes: Conjunctivae, EOM and lids are normal. Neck: Normal range of motion and full passive range of motion without pain. No JVD present. Scarring to each side of neck from CA treatments Cardiovascular: Normal rate, regular rhythm and normal heart sounds. No murmur heard. Pulmonary/Chest: Effort normal and breath sounds normal. Musculoskeletal: Normal range of motion. Neurological: She is alert and oriented to person, place, and time. Skin: Skin is warm and dry. Psychiatric: She has a normal mood and affect. Her speech is normal and behavior is normal. Assessment/Plan Problem List Items Addressed This Visit Endocrine Hypothyroidism (acquired) Thyroid level is much better with the 100 mcg a day of levothyroxine. I will recheck your labs in 3months to make sure it is stable. If you continue to have big fluctuations in your labs we may lookat doing a thyroid ultrasound and going to endocrinology. Relevant Medications levothyroxine (SYNTHROID, LEVOTHROID) 100 MCG tablet Other Scalp pain The antibiotics seem to be helping which makes me believe you had a cellulitis of the scalp even though you had no redness or drainage. If you start to get worse please let me know. Next step I believe would be to evaluate for nerve pain. No data recorded Goals Blood Pressure < 130/80 High blood pressure makes your heart work too hard. It can cause heart attack, stroke and kidney disease. Coping and Emotions Coping and Emotions: Manage stress Adapt to lifestyle changes Get support from family / friends HEMOGLOBIN A1C < 7.0 Blood sugar levels outside the normal range may be an indicator of diabetes. If any referrals were placed at today's visit the patient was instructed to call the office if theyhavn't heard anything about the referral within 2 weeks of today's visit. For any new medications prescribed today, patient was educated about indications for the medication, how to take the medication and potential side effects of the medications. documented in this encounter* Kirstie Hines CNP - 06/08/2019 12:56 PM EST Subjective Patient ID: Fco Garnett is a 48 y.o. female. Patient is here today for a routine interval visit. Viral illness: Patient was sent to the ER via [employer] when her family called 911 on 05/26/2019. She had been ill for a few days and left work early. She went home and had nausea, vomiting, and diarrhea. She developed a fever but did not realize she had a fever. She states her temp was 105F, nothing this high was recorded in the ER records. Labs were all normal, chest xray normal, CT of the head wasalso normal. Patient has very weak immune system from prior chemo/radiation for throat/tongue cancer. She states since being home she is getting better slowly, still tired most of the time. Depression: She states that her Cymbalta 60 mg helps but not quite enough, there are days when she wishes she had something more to help with the depression and blues. Over the last 2 weeks, how often have you been bothered by any of the following problems? Little interest or pleasure in doing things: Not at all Feeling down, depressed, or hopeless: Several days PHQ-2 Total Score: 1 Trouble falling or staying asleep, or sleeping too much: Not at all Feeling tired or having little energy: Not at all Poor appetite or overeating: Not at all Feeling bad about yourself - or that you are a failure or have let yourself or your family down: Not at all Trouble concentrating on things, such as reading the newspaper or watching television: Not at all Moving or speaking so slowly that other people could have noticed. Or the opposite - being so fidgety or restless that you have been moving around a lot more than usual: Not at all Thoughts that you would be better off , or of hurting yourself in some way: Not at all PHQ-9 Total Score: 1 If you checked off any problems, how difficult have these problems made it for you to do your work,take care of things at home, or get along with other people?: Not difficult at all The following were reviewed and updated as appropriate for today's visit: allergies, current medications, past family history, past medical history, past social history, past surgical history and problem list. Patient's Medications New Prescriptions DULOXETINE (CYMBALTA) 20 MG CAPSULE Take 1 (one) capsule (20 mg total) by mouth daily . Previous Medications FLU VAC QV 2019,18YR UP,RC,PF, (FLUBLOK QUAD) SYRINGE Sign this order in conjunction with the immunization order to satisfy [place] Board [employer] Pharmacy Positive ID requirements for immunization orders. . LACTOBACILLUS ACIDOPHILUS (FLORAJEN) 460 MG (20 BILLION CELL) CAP Take one capsule by mouth in the morning. . LEVOTHYROXINE (SYNTHROID, LEVOTHROID) 100 MCG TABLET Take 1 (one) tablet (100 mcg total) by mouth once daily . MULTIVITAMIN (MULTIVITAMIN) PER TABLET Take 1 tablet by mouth daily . TRAZODONE (DESYREL) 50 MG TABLET Take 1 (one) tablet (50 mg total) by mouth nightly . VITAMIN B COMPLEX (B COMPLEX-VITAMIN B12 ORAL) Take 1 tablet by mouth daily . Modified Medications Modified Medication Previous Medication DULOXETINE (CYMBALTA) 60 MG CAPSULE DULoxetine (CYMBALTA) 60 MG capsule Take 1 (one) capsule (60 mg total) by mouth daily . Take 1 (one) capsule (60 mg total) by mouth daily . Discontinued Medications No medications on file Review of Systems Review of Systems Constitutional: Positive for fatigue. Negative for activity change. HENT: Negative for hearing loss. Eyes: Negative for visual disturbance. Respiratory: Negative for cough, chest tightness and shortness of breath. Cardiovascular: Negative for chest pain and palpitations. Musculoskeletal: Negative for gait problem. Skin: Negative. Neurological: Positive for seizures. Negative for dizziness, tremors, weakness, light-headedness and headaches. Psychiatric/Behavioral: Positive for dysphoric mood. Negative for agitation and suicidal ideas. Thepatient is not nervous/anxious. Vitals: 06/08/19 1053 06/08/19 1121 BP: (!) 83/65 104/70 BP Location: Right arm Right arm Patient Position: Sitting Sitting BP Cuff Size: Adult Adult Pulse: 62 Resp: 14 Temp: 97.6 F (36.4 C) TempSrc: Oral SpO2: 97% Weight: 77.1 kg (170 lb) Height: 5' 2 Body mass index is 31.09 kg/m . Physical Exam Physical Exam Constitutional: She is oriented to person, place, and time. She appears well- developed and well-nourished. HENT: Right Ear: External ear normal. Left Ear: External ear normal. Nose: Nose normal. Mouth/Throat: Oropharynx is clear and moist and mucous membranes are normal. Eyes: Conjunctivae, EOM and lids are normal. Neck: Normal range of motion. Cardiovascular: Normal rate, regular rhythm and normal heart sounds. No murmur heard. Pulmonary/Chest: Effort normal and breath sounds normal. Musculoskeletal: Comments: Normal gait Neurological: She is alert and oriented to person, place, and time. GCS eye subscore is 4. GCS verbal subscore is 5. GCS motor subscore is 6. Skin: Skin is warm and dry. Psychiatric: She has a normal mood and affect. Her speech is normal and behavior is normal. No data recorded Assessment/Plan Problem List Items Addressed This Visit Endocrine Hypothyroidism (acquired) Relevant Orders TSH with Reflex Free T4 Other Depression with anxiety Relevant Medications DULoxetine (CYMBALTA) 60 MG capsule DULoxetine (CYMBALTA) 20 MG capsule Fatigue - Primary Relevant Orders TSH with Reflex Free T4 CBC and Differential Basic Metabolic Panel Other Visit Diagnoses Need for influenza vaccination Relevant Medications flu vac qv 2019,18yr up,rc,PF, (FLUBLOK QUAD) syringe Other Relevant Orders Influenza vaccine IIV4 18 yo or >,Flublok Quad (Completed) Preventative Goals Goals Blood Pressure < 130/80 High blood pressure makes your heart work too hard. It can cause heart attack, stroke and kidney disease. Coping and Emotions Coping and Emotions: Manage stress Adapt to lifestyle changes Get support from family / friends HEMOGLOBIN A1C < 7.0 Blood sugar levels outside the normal range may be an indicator of diabetes. For any new medications prescribed today, patient was educated about indications for the medication, how to take the medication and potential side effects of the medications. Kirstie Hines CNP documented in this encounter* Kirstie Hines CNP - 01/26/2020 8:55 AM EDT Subjective Patient ID: Fco Garnett is a 49 y.o. female. Back Pain This is a new problem. Episode onset: 3 months. The problem occurs constantly. The problem has beenwaxing and waning since onset. The pain is present in the lumbar spine. The quality of the pain is described as stabbing. The pain does not radiate. The pain is at a severity of 10/10. The pain is severe. Worse during: worse in the morning. The symptoms are aggravated by sitting. Stiffness is present in the morning. Pertinent negatives include no abdominal pain, bladder incontinence, bowel incontinence, chest pain, dysuria, fever, headaches, leg pain, numbness, paresis, paresthesias, pelvic pain, perianal numbness, tingling, weakness or weight loss. Risk factors include history of cancer. She has tried heat for the symptoms. The treatment provided mild relief. The following were reviewed and updated as appropriate for today's visit: allergies, current medications, past family history, past medical history, past social history, past surgical history and problem list. Patient's Medications New Prescriptions CYCLOBENZAPRINE (FLEXERIL) 10 MG TABLET Take 1 (one) tablet (10 mg total) by mouth 3 (three) times a day as needed for muscle spasms . HYDROCODONE-ACETAMINOPHEN (NORCO) 5-325 MG PER TABLET Take 1 (one) tablet by mouth every 4 (four) hours as needed for pain (Days supply per fill: 3) . Previous Medications DULOXETINE (CYMBALTA) 60 MG CAPSULE Take 1 (one) capsule (60 mg total) by mouth 2 (two) times a day. FLORAJEN 460 MG (20 BILLION CELL) CAP Take one capsule by mouth in the morning. . LEVOTHYROXINE (SYNTHROID, LEVOTHROID) 100 MCG TABLET Take 1 (one) tablet (100 mcg total) by mouth once daily . MULTIVITAMIN (MULTIVITAMIN) PER TABLET Take 1 tablet by mouth daily . PENTOXIFYLLINE (TRENTAL) 400 MG CR TABLET Take 400 mg by mouth 3 (three) times a day with meals . PILOCARPINE (SALAGEN) 5 MG TABLET Take 5 mg by mouth 3 (three) times a day . TRAZODONE (DESYREL) 50 MG TABLET Take 1 (one) tablet (50 mg total) by mouth nightly . TRIAMCINOLONE (KENALOG) 0.025 % CREAM Apply topically 2 (two) times a day . VITAMIN B COMPLEX (B COMPLEX-VITAMIN B12 ORAL) Take 1 tablet by mouth daily . VITAMIN E 1000 UNIT CAPSULE TAKE 1 CAPSULE BY MOUTH ONCE DAILY FOR FIBROSIS VITAMIN E ACETATE (VITAMIN E ORAL) Take by mouth daily . Modified Medications No medications on file Discontinued Medications FLU VAC QV 2019,18YR UP,RC,PF, (FLUBLOK QUAD) SYRINGE Sign this order in conjunction with the immunization order to satisfy [place] Board [employer] Pharmacy Positive ID requirements for immunization orders. . Review of Systems Review of Systems Constitutional: Negative for fever and weight loss. Cardiovascular: Negative for chest pain. Gastrointestinal: Negative for abdominal pain and bowel incontinence. Genitourinary: Negative for bladder incontinence, dysuria and pelvic pain. Musculoskeletal: Positive for back pain. Neurological: Negative for tingling, weakness, numbness, headaches and paresthesias. Vitals: 01/26/20 0844 BP: 107/68 BP Location: Right arm Patient Position: Sitting BP Cuff Size: Adult Pulse: 75 Resp: 18 Temp: 98.7 F (37.1 C) TempSrc: Temporal SpO2: 97% Weight: 75.7 kg (166 lb 14.4 oz) Body mass index is 30.53 kg/m . Physical Exam Physical Exam Constitutional: She is oriented to person, place, and time. She appears well- developed and well-nourished. HENT: Head: Normocephalic. Right Ear: External ear normal. Left Ear: External ear normal. Eyes: Conjunctivae are normal. Neck: Normal range of motion. Musculoskeletal: Lumbar back: She exhibits decreased range of motion, tenderness and pain. She exhibits no swelling and no edema. Back: Neurological: She is alert and oriented to person, place, and time. Skin: Skin is warm and dry. Psychiatric: She has a normal mood and affect. Her behavior is normal. OARRS/NARxCHECK Report Received and Assessed: 01/26/2020 Date controlled substance agreement signed: No data found Date of last drug screen: No data found Functional Assessment: No data found Assessment/Plan Problem List Items Addressed This Visit Digestive Malignant neoplasm of base of tongue (HCC) Relevant Orders CBC and Differential Comprehensive Metabolic Panel Endocrine Hypothyroidism (acquired) Relevant Orders Lipid Panel TSH with Reflex Free T4 Other Visit Diagnoses Acute right-sided low back pain without sciatica - Primary Relevant Medications HYDROcodone-acetaminophen (NORCO) 5-325 mg per tablet Other Relevant Orders POC Urinalysis Dipstick (Completed) XR Lumbar Spine 2-3 Views (Standard) (Completed) Preventative Goals Goals Blood Pressure < 130/80 High blood pressure makes your heart work too hard. It can cause heart attack, stroke and kidney disease. Coping and Emotions Coping and Emotions: Manage stress Adapt to lifestyle changes Get support from family / friends HEMOGLOBIN A1C < 7.0 Blood sugar levels outside the normal range may be an indicator of diabetes. For any new medications prescribed today, patient was educated about indications for the medication, how to take the medication and potential side effects of the medications. Kirstie Hines CNP documented in this encounter* Kirstie Hines CNP - 02/05/2020 10:14 AM EDT Subjective Patient ID: Fco Garnett is a 49 y.o. female. Patient is here today for a routine 3 month interval visit to discuss her thyroid issues and depression. Reviewed all recent labwork with patient. 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 Depression: Currently on Cymbalta 60 mg daily, she denies any side effects or issues with this medicaiton. She continues to have breakthrough mood and depression issues. She has not been to counseling since her diagnosis of tongue cancer, talked at length about treatment of PTSD. She is willing to go to counseling to see if this helps with symptoms. She is going to try to schedule this since she is taking time off of work. Hypothyroidism: Patient is currently on 100 mcg of Levothyroxine daily. She denies compliance issues and states she takes this on an empty stomach with no other medications daily. States biggest symptom at this time is fatigue. Insomnia: Patient is currently on Trazadone 50 mg a night to help her sleep. She has been on this medication almost 2 years and has no issues or side effects. She states this dose is effective in helping her sleep. The following were reviewed and updated as appropriate for today's visit: allergies, current medications, past family history, past medical history, past social history, past surgical history and problem list. Patient's Medications New Prescriptions No medications on file Previous Medications CYCLOBENZAPRINE (FLEXERIL) 10 MG TABLET Take 1 (one) tablet (10 mg total) by mouth 3 (three) times a day as needed for muscle spasms . DULOXETINE (CYMBALTA) 60 MG CAPSULE Take 1 (one) capsule (60 mg total) by mouth 2 (two) times a day. FLORAJEN 460 MG (20 BILLION CELL) CAP Take one capsule by mouth in the morning. . FLU VAC QV 2020,18YR UP,RC,PF, (FLUBLOK QUAD) SYRINGE Sign this order in conjunction with the immunization order to satisfy [place] Board [employer] Pharmacy Positive ID requirements for immunization orders. . LEVOTHYROXINE (SYNTHROID, LEVOTHROID) 100 MCG TABLET Take 1 (one) tablet (100 mcg total) by mouth once daily . MULTIVITAMIN (MULTIVITAMIN) PER TABLET Take 1 tablet by mouth daily . PENTOXIFYLLINE (TRENTAL) 400 MG CR TABLET Take 400 mg by mouth 3 (three) times a day with meals . PILOCARPINE (SALAGEN) 5 MG TABLET Take 5 mg by mouth 3 (three) times a day . TRAZODONE (DESYREL) 50 MG TABLET Take 1 (one) tablet (50 mg total) by mouth nightly . TRIAMCINOLONE (KENALOG) 0.025 % CREAM Apply topically 2 (two) times a day . VITAMIN B COMPLEX (B COMPLEX-VITAMIN B12 ORAL) Take 1 tablet by mouth daily . VITAMIN E 1000 UNIT CAPSULE TAKE 1 CAPSULE BY MOUTH ONCE DAILY FOR FIBROSIS VITAMIN E ACETATE (VITAMIN E ORAL) Take by mouth daily . Modified Medications No medications on file Discontinued Medications No medications on file Review of Systems Review of Systems Constitutional: Positive for fatigue. Negative for activity change. HENT: Negative for hearing loss. Eyes: Negative for visual disturbance. Respiratory: Negative for cough, chest tightness and shortness of breath. Cardiovascular: Negative for chest pain and palpitations. Musculoskeletal: Negative for gait problem. Skin: Negative. Neurological: Negative for dizziness, tremors, seizures, weakness, light- headedness and headaches. Psychiatric/Behavioral: Positive for dysphoric mood. Negative for agitation and suicidal ideas. Thepatient is nervous/anxious. Vitals: 02/05/20 0952 BP: 113/79 BP Location: Left arm Patient Position: Sitting BP Cuff Size: Adult Pulse: 83 Resp: 16 Temp: 98.3 F (36.8 C) TempSrc: Temporal SpO2: 99% Weight: 74.5 kg (164 lb 4.8 oz) Height: 5' 5 Body mass index is 27.34 kg/m . Physical Exam Physical Exam Constitutional: She is oriented to person, place, and time. She appears well- developed and well-nourished. HENT: Right Ear: External ear normal. Left Ear: External ear normal. Nose: Nose normal. Mouth/Throat: Oropharynx is clear and moist and mucous membranes are normal. Eyes: Conjunctivae, EOM and lids are normal. Neck: Normal range of motion. Cardiovascular: Normal rate, regular rhythm and normal heart sounds. No murmur heard. Pulmonary/Chest: Effort normal and breath sounds normal. Musculoskeletal: Comments: Normal gait Neurological: She is alert and oriented to person, place, and time. GCS eye subscore is 4. GCS verbal subscore is 5. GCS motor subscore is 6. Skin: Skin is warm and dry. Psychiatric: She has a normal mood and affect. Her speech is normal and behavior is normal. OARRS/NARxCHECK Report Received and Assessed: 01/26/2020 Date controlled substance agreement signed: No data found Date of last drug screen: No data found Functional Assessment: No data found Assessment/Plan Problem List Items Addressed This Visit Endocrine Hypothyroidism (acquired) You are having no symptoms with a slightly low TSH so we will leave the dose alone. If you develop anxiety, can't sleep, palpitations, hot and sweaty more than usual let me know. Other Depression with anxiety [facility] [address] [place] [id number] [facility] [address] [place] [id number] Insomnia Stable on Trazodone. Other Visit Diagnoses Need for vaccination - Primary Relevant Medications flu vac qv 2020,18yr up,rc,PF, (FLUBLOK QUAD) syringe Other Relevant Orders Influenza vaccine IIV4 18 yo or >,Flublok Quad (Completed) Preventative Goals Goals Blood Pressure < 130/80 High blood pressure makes your heart work too hard. It can cause heart attack, stroke and kidney disease. Coping and Emotions Coping and Emotions: Manage stress Adapt to lifestyle changes Get support from family / friends HEMOGLOBIN A1C < 7.0 Blood sugar levels outside the normal range may be an indicator of diabetes. For any new medications prescribed today, patient was educated about indications for the medication, how to take the medication and potential side effects of the medications. Kirstie Hines CNP documented in this encounter* Demetria Otoole, PRUDENCE - 06/17/2020 11:30 AM EST [facility] DAILY TREATMENT NOTE Today's Date 06/17/2020 Patient Name: Fco Garnett Date of : 1970 Current Visit #: 2 Authorized Visits: 199 Case Name: Back Pain History: Pre-Treatment Pain Scale: 0 Symptoms: gradually improved Functional Diagnosis: 1. Back pain, unspecified back location, unspecified back pain laterality, unspecified chronicity Clinical Information: Subjective: No pain coming in to the clinic today. Objective Pain in middle low back with hip AAROM hip flexion. Pain also noted with long axis distraction in low back. Pain lowered in bridge after long axis distraction. Pain more pronounced in L single leg bridges. Treatments: Physical Therapy Exercise Log - 06/17/20 1117 OTHER Notes Visit 2: 11:15-11:45 Therapeutic Exercise (34905) Parameters LTR x 10 each side Intervention SKTC x 10 each side Parameters PPT's x 10 5 sec hold Intervention seated HS, piriformis stretches x 5 Parameters Long axis distraction to left LE Intervention AAROM Hip flexion x 10 Parameters Supine Bicycles 3 x 10 seconds Intervention Supine Add. c bolser 2 x 10 Parameters Supine Abd. RTB 2 x 10 Intervention Bridges 2 x 10 Parameters Supine overhead arm extension 2 x 10 YTT PT Treatment Times Therex Total Time 30 Direct Treatment Time 30 Total Treatment Time 30 Goals: Physical Therapy Ortho Goals: MOBILITY: Patient will be able to ambulate for >30 minutes in community without difficulty in 4 weeks. CARRYING/MOVING/HANDLING: Patient will be able to lift and carry up to 20 lbs in 4 weeks CHANGING MAINTAINING POSITON: Patient will be able to stand for >1 hour without pain in 4 weeks IMPAIRMENT: Patient will demonstrate improved postural awareness in PT sessions to facilitate mechanical alignment and function in 3 weeks. IMPAIRMENT: Improve pain from 6/10 to <3/10 on average throughout the day in 4 weeks IMPAIRMENT: Improve MMT of Bilateral Hip Flexion to 5/5 in 4 weeks IMPAIRMENT: Improve AROM of lumbar right side gliding to 25% movement loss or less in 4 weeks. OTHER: Patient will increase FOTO score from 60 to at least 70 to show MDC/MCII and expected functional outcome in 4 weeks. OTHER: Patient will be able to properly demonstrate independence with HEP in 1 week. Patient Education: Quality of movement, Verbal HEP and HEP Modification with patient verbalized understanding. Post-Treatment Pain Scale: 0 Assessment: Patient had an expected response to treatment. Skilled Intervention demonstrated by modifications of treatment per exercise log including increased load, increased intensity and increased volume and safety interventions per exercise log. Progress towards goals as expected. Plan for Next Visit: Treatment Visit with focus on Strenghtening low back muscles and stretching leg muscles Demetria Otoole PTA STATE LICENSE, [id number] documented in this encounter* Jorge Connolly, PT - 06/22/2020 10:00 AM EST [facility] DAILY TREATMENT NOTE Today's Date 06/22/2020 Patient Name: Fco Garnett Date of : 1970 Current Visit #: 3 Authorized Visits: 199 Case Name: Back Pain History: Pre-Treatment Pain Scale: 0 Symptoms: gradually improved Functional Diagnosis: 1. Back pain, unspecified back location, unspecified back pain laterality, unspecified chronicity Clinical Information: Subjective: Pt denies change in med hx and reports no new complaints. Objective Treatments: Physical Therapy Exercise Log - 06/22/20 0950 OTHER Notes Visit 3: 10:01 - 10:40 Therapeutic Exercise ([id number]) Parameters LTR 10 x 10 each side Intervention SKTC 3x20 Parameters PPT's x 10 5 sec hold Intervention seated HS, piriformis stretches x 5 Parameters Long axis distraction to left LE 3x15 Intervention AAROM Hip flexion x 10 Parameters Supine Bicycles 3 x 10 seconds Intervention Supine Add. c bolser 2 x 10 Parameters Supine Abd. GTB 2 x 10 Intervention Bridges 2 x 10 Parameters Supine overhead arm extension 2 x 10 YTT Intervention dying bugs x10 alt Parameters steamboats w/o resistance x10 bilat. Intervention fwd and lat. 6 step-ups x10 PT Treatment Times Therex Total Time 39 Direct Treatment Time 39 Total Treatment Time 39 Goals: Physical Therapy Ortho Goals: MOBILITY: Patient will be able to ambulate for >30 minutes in community without difficulty in 4 weeks. CARRYING/MOVING/HANDLING: Patient will be able to lift and carry up to 20 lbs in 4 weeks CHANGING MAINTAINING POSITON: Patient will be able to stand for >1 hour without pain in 4 weeks IMPAIRMENT: Patient will demonstrate improved postural awareness in PT sessions to facilitate mechanical alignment and function in 3 weeks. IMPAIRMENT: Improve pain from 6/10 to <3/10 on average throughout the day in 4 weeks IMPAIRMENT: Improve MMT of Bilateral Hip Flexion to 5/5 in 4 weeks IMPAIRMENT: Improve AROM of lumbar right side gliding to 25% movement loss or less in 4 weeks. OTHER: Patient will increase FOTO score from 60 to at least 70 to show MDC/MCII and expected functional outcome in 4 weeks. OTHER: Patient will be able to properly demonstrate independence with HEP in 1 week. Patient Education: Quality of movement and HEP Adherence with patient verbalized understanding. Post-Treatment Pain Scale: 0 Assessment: Patient had an expected response to treatment. Skilled Intervention demonstrated by modifications of treatment per exercise log including increased mobility and increased volume and safety interventions per exercise log. Progress towards goals as expected. Plan for Next Visit: Treatment Visit with focus on strength and stability Jorge Connolly PT State License, [id number] documented in this encounter* Jorge Connolly, GUSTAVO - 06/13/2020 4:00 PM EST [facility] Evaluation Today's Date 06/13/2020 Patient Name: Fco Garnett Date of : 1970 Case Name: Back Pain Functional Diagnosis: 1. Back pain, unspecified back location, unspecified back pain laterality, unspecified chronicity Clinical Information: Subjective Referring Diagnosis: Back Pain Follow Up With Physician: August 2020. History of Present Illness Date of Onset: months. Subjective History: Pt reports c/o sharp pains in her lumbar spine. She reports most of the pain iscentralized but spreads throughout the low back region with prolonged activity and chores. She reports unknown mechanism of injury and denies trauma but wonders if her symptoms are related to her previous job. She denies radicular sx and numbness/tingling. Previous Imaging: X-ray (01/26/20) Pain Scale: Pain location: lumbar spine Average Pain: 6/10 Pain at highest: 10/10 Aggravating factors: prolonged walking, running the vacuum Easing factors: muscle relaxor, lying on right side 24 Hour Symptom Behavior Morning Pain: gradual End of day pain: worse Functional Mobility Status Functional Limitations: limited mobility and standing Current Activity Level: low active Premorbid Activity Level: active Social Support: Scientologist, social, or cultural considerations to be made aware of before starting treatment: NoActivities of Daily Living: independent with all Instrumental Activities of Daily Living: 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 to be determined Sleep Assessment Preferred sleep position: on side (right) Sleep disturbance: no Sleep Disturbance Red Flags: None Comments: Barriers to Care: None Personal Goals: Decrease pain and improve activity tolerance Lumbar Spine Trunk AROM: Baseline pain level and symptom location: no pain to begin assessment Movement Loss % of Loss Description Flexion 25% no pain Extension 0% increases left side low back pain Side Gliding R 50% no change Side Gliding L 0% increases left side low back pain Dermatomes Sensation: grossly intact Muscle Strength: Hip Flexion Right: 4+ Left: 4 Knee extension Right: 5 Left: 5 Ankle DF Right: 5 Left: 5 Ankle PF Right: 5 Left: 5 Knee flexion Right: 5 Left: 5 Hip extension Right: 4+ Left: 4+ Hip ABD Right: 4+ Left: 4+ Pt reports low back strain ipsilaterally with bilateral hip add, left hip flex and left hip abd Special Tests Slump Right: no Slump R Left: no Slump L SLR Negative Scour Negative JOSEPH Positive Left for possible SIJ dysfunction Pt reports significant increase in pain from flexion the left hip in supine, even with the foot supported on the table. She reports something popping in the left PSIS region when she also flexed the right leg. Pt reports relief of pain with long axis distractions of the left LE SIJ dysfunction: SIJ Dysfunction Pt reports significant increase in left side pain with left pelvic rocking Palpation/ Tenderness: Tenderness reported over spinous processes L3-S1 and right lumbar paraspinals in same region FOTO Score: 60 Treatments: Physical Therapy Exercise Log - 06/13/20 1520 OTHER Notes Visit 1: 2:44 - 3:18 Therapeutic Exercise (19436) Intervention provided written HEP hanouts consisting of the following: Parameters LTR Intervention SKTC Parameters PPTs Intervention seated HS and piriformis stretches Parameters performed long axis distraction to left LE PT Treatment Times Total Treatment Time 34 Goals: Physical Therapy Ortho Goals: MOBILITY: Patient will be able to ambulate for >30 minutes in community without difficulty in 4 weeks. CARRYING/MOVING/HANDLING: Patient will be able to lift and carry up to 20 lbs in 4 weeks CHANGING MAINTAINING POSITON: Patient will be able to stand for >1 hour without pain in 4 weeks IMPAIRMENT: Patient will demonstrate improved postural awareness in PT sessions to facilitate mechanical alignment and function in 3 weeks. IMPAIRMENT: Improve pain from 6/10 to <3/10 on average throughout the day in 4 weeks IMPAIRMENT: Improve MMT of Bilateral Hip Flexion to 5/5 in 4 weeks IMPAIRMENT: Improve AROM of lumbar right side gliding to 25% movement loss or less in 4 weeks. OTHER: Patient will increase FOTO score from 60 to at least 70 to show MDC/MCII and expected functional outcome in 4 weeks. OTHER: Patient will be able to properly demonstrate independence with HEP in 1 week. CPT Code 94147 Low 41572 Moderate 99919 High History 0 1-2 3+ Comorbidities: cancer, depression and thyroid disorder, Personal factors: chronicity or severity of the current condition Examination of body systems (elements of body structures & functions, activity limitations, and/or participation restrictions) 1-2 elements 3+ elements 4+ elements See below clinical impression Clinical Presentation Stable Evolving Unstable As evidenced by reproduction of or changes in symptoms with certain movements and pt report of overall worsening of symtpoms over time Decision Making Low (FOTO >/= 69) Moderate (FOTO 34 - 68) High (FOTO </= 33) FOTO score= 60 Pt is a 49 y.o. female who presents to PT services with c/o low back pain. Upon assessment, pt has been found with the following impairments: impaired posture, decreased ROM, decreased stability and pain. The documented impairments result in the following functional limitations: equipment or machinery cleaner, functional mobility, recreational activities, quality of life, bending, lifting for work/ADLs and carrying. The pt would benefit from skilled PT services focused on the above listed impairments and limitations in order to safely progress pt to their desired level of function. Pt to be discharged from OP PT services if/when goals are met, if they fail to make progress with conservative management in PT, if their level of progress plateaus, or if they do not maintain compliance with attendance or HEP. At this time, it is my clinical judgment that services are medically necessary. Plan of Care Frequency of Visits: 2 times per week Duration: 4 weeks Interventions: Therapeutic Exercise, Neuromuscular Re-Education, Manual Therapy, Therapeutic/ Functional Activities and Hot/Cold Pack Rehab Potential: good Suicide Screen Signs and Symptoms of Abuse/Neglect: No Actions Taken: No Suicide Risk: Does the patient feel like ending their life today?No Actions Taken: No Patient Education Provided Pt was educated on the benefits of therapy and importance of compliance with sessions and HEP for rehabilitation. Pt was also educated on treatment diagnosis, POC, and frequency/duration of treatment. Clinical Impression Pt would benefit from PT interventions for possible SIJ dysfunction and lumbar strain/sprain to address impairments in LE and trunk flexibility, LE strength and core stability. Jorge Connolly PT State License, [id number] documented in this encounter* Isaac Marte, DIRECTOR BLOOD BANK - 06/24/2020 3:15 PM EST [facility] DAILY TREATMENT NOTE Today's Date 06/24/2020 Patient Name: Fco Garnett Date of : 1970 Current Visit #: 4 Authorized Visits: 199 Case Name: Back Pain History: Pre-Treatment Pain Scale: 0 Symptoms: gradually improved Functional Diagnosis: 1. Acute right-sided low back pain with sciatica, sciatica laterality unspecified Clinical Information: Subjective: Pt reports compliance with HEP and states he back is feeling good since starting therapy. Objective Treatments: Physical Therapy Exercise Log - 06/24/20 1515 OTHER Notes Visit 4: 3:15 - 3:45 Therapeutic Exercise (06320) Parameters LTR 10 x 10 each side Intervention SKTC 3x20 Parameters PPT's x 10 5 sec hold Intervention seated HS, piriformis stretches x 5 Parameters Long axis distraction to left LE 3x15 Intervention AAROM Hip flexion x 10 Parameters Supine Bicycles 3 x 10 seconds Intervention Supine Add. c bolser 2 x 10 Parameters Supine Abd. GTB 2 x 10 Intervention Bridges 2 x 10 Parameters Supine overhead arm extension 2 x 10 YTT Intervention dying bugs x10 alt Parameters steamboats w/o resistance x10 bilat. Intervention fwd and lat. 6 step-ups x10 PT Treatment Times Therex Total Time 30 Direct Treatment Time 30 Total Treatment Time 30 Goals: Physical Therapy Ortho Goals: MOBILITY: Patient will be able to ambulate for >30 minutes in community without difficulty in 4 weeks. CARRYING/MOVING/HANDLING: Patient will be able to lift and carry up to 20 lbs in 4 weeks CHANGING MAINTAINING POSITON: Patient will be able to stand for >1 hour without pain in 4 weeks IMPAIRMENT: Patient will demonstrate improved postural awareness in PT sessions to facilitate mechanical alignment and function in 3 weeks. IMPAIRMENT: Improve pain from 6/10 to <3/10 on average throughout the day in 4 weeks IMPAIRMENT: Improve MMT of Bilateral Hip Flexion to 5/5 in 4 weeks IMPAIRMENT: Improve AROM of lumbar right side gliding to 25% movement loss or less in 4 weeks. OTHER: Patient will increase FOTO score from 60 to at least 70 to show MDC/MCII and expected functional outcome in 4 weeks. OTHER: Patient will be able to properly demonstrate independence with HEP in 1 week. Patient Education: Quality of movement with patient demonstrated understanding. Post-Treatment Pain Scale: 0 Assessment: Patient had an expected response to treatment. Skilled Intervention demonstrated by modifications of treatment per exercise log including increased load and safety interventions per exercise log. Progress towards goals as expected. Plan for Next Visit: Treatment Visit with focus on core strengthening Isaac Marte PTA STATE LICENSE, [id number] documented in this encounter* Flora, Kirstie Summers, RECORDS SUPERVISOR - 02/05/2019 10:21 AM EDT Subjective Patient ID: Fco Garnett is a 48 y.o. female. Patient is here today for a routine 3 month interval visit to discuss her thyroid issues and depression. Depression: Currently on Cymbalta 60 mg daily, she denies any side effects or issues with this medicaiton. She continues to have breakthrough mood and depression issues. She has not been to counseling since her diagnosis of tongue cancer, talked at length about treatment of PTSD. She is willing to go to counseling to see if this helps with symptoms. Throat cancer: Patient states she does not understand how she got tongue cancer and no one has everexplained it to her. 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 Patient states her first and second both cheated on her so she believes this is how she had HPV transmitted. She states this conversation did clear up a lot of questi ons and help her feel better about the diagnosis. Hypothyroidism: Patient is currently on 100 mcg of Levothyroxine daily. She denies compliance issues and states she takes this on an empty stomach with no other medications daily. States biggest symptom at this time is fatigue. The following were reviewed and updated as appropriate for today's visit: allergies, current medications, past family history, past medical history, past social history, past surgical history and problem list. Patient's Medications New Prescriptions No medications on file Previous Medications DULOXETINE (CYMBALTA) 60 MG CAPSULE Take 1 (one) capsule (60 mg total) by mouth daily . LACTOBACILLUS ACIDOPHILUS (FLORAJEN) 460 MG (20 BILLION CELL) CAP Take one capsule by mouth in the morning. . LEVOTHYROXINE (SYNTHROID, LEVOTHROID) 100 MCG TABLET Take 1 (one) tablet (100 mcg total) by mouth once daily . MULTIVITAMIN (MULTIVITAMIN) PER TABLET Take 1 tablet by mouth daily . TRAZODONE (DESYREL) 50 MG TABLET Take 1 (one) tablet (50 mg total) by mouth nightly . VITAMIN B COMPLEX (B COMPLEX-VITAMIN B12 ORAL) Take 1 tablet by mouth daily . Modified Medications No medications on file Discontinued Medications No medications on file Review of Systems Review of Systems Constitutional: Positive for fatigue. Negative for activity change. HENT: Negative for hearing loss. Eyes: Negative for visual disturbance. Respiratory: Negative for cough, chest tightness and shortness of breath. Cardiovascular: Negative for chest pain and palpitations. Musculoskeletal: Negative for gait problem. Skin: Negative. Psychiatric/Behavioral: Positive for dysphoric mood. Negative for agitation and suicidal ideas. Thepatient is not nervous/anxious. Vitals: 02/05/19 0948 BP: 102/68 BP Location: Right arm Patient Position: Sitting BP Cuff Size: Adult Pulse: 70 Resp: 16 Temp: 98 F (36.7 C) TempSrc: Oral SpO2: 94% Weight: 74.6 kg (164 lb 8 oz) Height: 5' 2 Body mass index is 30.09 kg/m . Physical Exam Physical Exam Constitutional: She is oriented to person, place, and time. She appears well- developed and well-nourished. HENT: Right Ear: External ear normal. Left Ear: External ear normal. Nose: Nose normal. Mouth/Throat: Oropharynx is clear and moist and mucous membranes are normal. Eyes: Conjunctivae, EOM and lids are normal. Neck: Normal range of motion. Cardiovascular: Normal rate, regular rhythm and normal heart sounds. No murmur heard. Pulmonary/Chest: Effort normal and breath sounds normal. Musculoskeletal: Comments: Normal gait Neurological: She is alert and oriented to person, place, and time. GCS eye subscore is 4. GCS verbal subscore is 5. GCS motor subscore is 6. Skin: Skin is warm and dry. Psychiatric: She has a normal mood and affect. Her speech is normal and behavior is normal. No data recorded Assessment/Plan Problem List Items Addressed This Visit Digestive Malignant neoplasm of base of tongue (HCC) - Primary Relevant Orders CBC and Differential (Completed) Comprehensive Metabolic Panel (Completed) Vitamin D, Total, 25-OH (Completed) Hepatitis Panel, Acute (Completed) Endocrine Hypothyroidism (acquired) Will recheck your thyroid levels to make sure everything is stable. Relevant Orders TSH with Reflex Free T4 (Completed) Thyroid peroxidase antibody (TPO) (Completed) Other Depression with anxiety I want you to keep taking your Cymbalta, we can look at adding a higher dose or adding another medication but I believe we need to try counseling first. You likely have PTSD from the tongue cancer and the aggressive treatments. This has affected every part of your life. Hopefully counseling can help you get in a better mental place. [facility] [address] [place] [address] Relevant Orders TSH with Reflex Free T4 (Completed) Fatigue Relevant Orders CBC and Differential (Completed) Comprehensive Metabolic Panel (Completed) Vitamin D, Total, 25-OH (Completed) Preventative Goals Goals Blood Pressure < 130/80 High blood pressure makes your heart work too hard. It can cause heart attack, stroke and kidney disease. Coping and Emotions Coping and Emotions: Manage stress Adapt to lifestyle changes Get support from family / friends HEMOGLOBIN A1C < 7.0 Blood sugar levels outside the normal range may be an indicator of diabetes. For any new medications prescribed today, patient was educated about indications for the medication, how to take the medication and potential side effects of the medications. Kirstie Hines CNP documented in this encounter* Kirstie Hines CNP - 09/05/2020 10:15 AM EDT Subjective Patient ID: Fco Garnett is a 49 y.o. female. Patient is here today for a routine interval visit. 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 Since stopping her cancer treatments she has struggled off and on with constipation. She is currently taking Probiotics daily, Colace 100 mg 4x daily, and Fiber tablets 4x a day. She also uses Senna every other day and at times Miralax just so she can have a BM. She states there are times she will go 3-4 days without a BM, she states at that point she is very uncomfortable and bloated. She did have a normal colonoscopy 09/2018 and was recommended follow up in 10 years. Denies black, tarry, or bloody stools. Back pain: Patient has been dealing with continued low back pain since about November of 2019. She states the pain has become increasingly worse and she believes it is due to inactivity. She states it started to hurt when she quit working and quit being as active. She states she is taking one flexeril BID and this helps considerably with her back and her chronic neck pain post radiation. She states she is also using [place] occasionally for severe back pain or neck pain (post cancer treatment). She was prescribed 18# tablets 06/06/2020 and she has not taken any of these tablets. She has them in a safe location. Depression: Currently on Cymbalta 60 mg daily, she denies any side effects or issues with this medicaiton. She continues to have breakthrough mood and depression issues. She has been to counseling before [facility] but stopped due to not finding Telehealth ineffective, she is going to reschedule. She was established through [facility] in [place]. Hypothyroidism: Patient is currently on 100 mcg of Levothyroxine daily. She denies compliance issues and states she takes this on an empty stomach with no other medications daily. States biggest symptom at this time is fatigue. Insomnia: Patient is currently on Trazadone 50 mg a night to help her sleep. She has been on this medication 2 years and has no issues or side effects. She states this dose is effective in helping her sleep. The following were reviewed and updated as appropriate for today's visit: allergies, current medications, past family history, past medical history, past social history, past surgical history and problem list. Patient's Medications New Prescriptions POLYETHYLENE GLYCOL (MIRALAX) 17 GRAM POWDER Take 17 (seventeen) g by mouth daily as needed (constipation) . Previous Medications BUSPIRONE (BUSPAR) 7.5 MG TABLET Take 1 (one) tablet (7.5 mg total) by mouth 2 (two) times a day asneeded (anxiety) . DULOXETINE (CYMBALTA) 60 MG CAPSULE Take 1 (one) capsule (60 mg total) by mouth 2 (two) times a day. FLORAJEN 460 MG (20 BILLION CELL) CAP Take one capsule by mouth in the morning. . FLU VAC QV 2020,18YR UP,RC,PF, (FLUBLOK QUAD) SYRINGE Sign this order in conjunction with the immunization order to satisfy [place] Board [employer] Pharmacy Positive ID requirements for immunization orders. . L.RHAMN [id number]-B.MARIO (PROBIOTIC) 20 BILLION CELL CPSP Take 1 capsule by mouth daily . LEVOTHYROXINE (SYNTHROID, LEVOTHROID) 100 MCG TABLET Take 1 (one) tablet (100 mcg total) by mouth once daily . MULTIVITAMIN (MULTIVITAMIN) PER TABLET Take 1 tablet by mouth daily . PENTOXIFYLLINE (TRENTAL) 400 MG CR TABLET Take 400 mg by mouth 3 (three) times a day with meals . PILOCARPINE (SALAGEN) 5 MG TABLET Take 5 mg by mouth 3 (three) times a day . TRAZODONE (DESYREL) 50 MG TABLET Take 1 (one) tablet (50 mg total) by mouth nightly . VITAMIN B COMPLEX (B COMPLEX-VITAMIN B12 ORAL) Take 1 tablet by mouth daily . VITAMIN E 1000 UNIT CAPSULE TAKE 1 CAPSULE BY MOUTH ONCE DAILY FOR FIBROSIS VITAMIN E ACETATE (VITAMIN E ORAL) Take by mouth daily . Modified Medications Modified Medication Previous Medication CYCLOBENZAPRINE (FLEXERIL) 10 MG TABLET cyclobenzaprine (FLEXERIL) 10 MG tablet Take 1 (one) tablet (10 mg total) by mouth 2 (two) times a day as needed for muscle spasms (neck pain) . Take 1 (one) tablet (10 mg total) by mouth nightly as needed for muscle spasms (back pain) . Discontinued Medications TRIAMCINOLONE (KENALOG) 0.025 % CREAM Apply topically 2 (two) times a day . Review of Systems Review of Systems Constitutional: Positive for fatigue. Negative for activity change. HENT: Negative for hearing loss. Eyes: Negative for visual disturbance. Respiratory: Negative for cough, chest tightness and shortness of breath. Cardiovascular: Negative for chest pain and palpitations. Gastrointestinal: Positive for constipation. Negative for blood in stool. Musculoskeletal: Positive for arthralgias and back pain. Negative for gait problem. Skin: Negative. Neurological: Negative for dizziness, tremors, seizures, weakness, light- headedness and headaches. Psychiatric/Behavioral: Positive for dysphoric mood. Negative for agitation and suicidal ideas. Thepatient is nervous/anxious. Vitals: 09/05/20 0946 BP: 113/67 BP Location: Right arm Patient Position: Sitting BP Cuff Size: Adult Pulse: 90 Resp: 16 Temp: 98.5 F (36.9 C) TempSrc: Temporal SpO2: 95% Weight: 75.3 kg (166 lb) Height: 5' 5 Body mass index is 27.62 kg/m . Physical Exam Physical Exam Constitutional: She is oriented to person, place, and time. She appears well- developed and well-nourished. HENT: Right Ear: External ear normal. Left Ear: External ear normal. Nose: Nose normal. Mouth/Throat: Oropharynx is clear and moist and mucous membranes are normal. Eyes: Conjunctivae, EOM and lids are normal. Neck: Normal range of motion. Cardiovascular: Normal rate, regular rhythm and normal heart sounds. No murmur heard. Pulmonary/Chest: Effort normal and breath sounds normal. Musculoskeletal: Comments: Normal gait Neurological: She is alert and oriented to person, place, and time. GCS eye subscore is 4. GCS verbal subscore is 5. GCS motor subscore is 6. Skin: Skin is warm and dry. Psychiatric: She has a normal mood and affect. Her speech is normal and behavior is normal. OARRS/NARxCHECK Report Received and Assessed: 09/05/2020 Date controlled substance agreement signed: 09/05/2020 Date of last drug screen: No data found Functional Assessment: No data found Assessment/Plan Problem List Items Addressed This Visit Endocrine Hypothyroidism (acquired) Relevant Orders Lipid Panel TSH with Reflex Free T4 Other Chronic neck pain Will continue to prescribe pain medication as needed for pain, stable. Wellness examination The lab is open here at the office M-F 730am-4pm, you do not need an appointment, just walk in. I would like you to obtain some fasting blood work. This means that you can not have anything to eat or drink for about 8-10 hours before your blood is drawn. The only thing you are allowed to have before your labs is a glass of water or a cup of BLACK coffee. Thank you. Get your labs sometime in the week or so before your next apt. Relevant Orders CBC and Differential Comprehensive Metabolic Panel Lipid Panel TSH with Reflex Free T4 Other Visit Diagnoses Chronic constipation - Primary Relevant Medications polyethylene glycol (MIRALAX) 17 gram powder Encounter for screening mammogram for malignant neoplasm of breast Relevant Orders Mammography Screening Markel Bilateral Vitamin D deficiency Relevant Orders Vitamin D, Total, 25-OH Preventative Goals Goals Blood Pressure < 130/80 High blood pressure makes your heart work too hard. It can cause heart attack, stroke and kidney disease. Coping and Emotions Coping and Emotions: Manage stress Adapt to lifestyle changes Get support from family / friends HEMOGLOBIN A1C < 7.0 Blood sugar levels outside the normal range may be an indicator of diabetes. For any new medications prescribed today, patient was educated about indications for the medication, how to take the medication and potential side effects of the medications. Kirstie Hines CNP documented in this encounter Reason for Referral Status Reason Specialty Diagnoses / Procedures Referred By Contact Referred To Contact Authorized Patient Preference Diagnoses Screening for breast cancer Procedures Mammography Screening Bilateral Kirstie Hines CNP [address] [facility] [place] [address] [place] [address] Phone: [phone] Status Reason Specialty Diagnoses / Procedures Referred By Contact Referred To Contact Authorized Radiology Diagnoses Encounter for screening mammogram for malignant neoplasm of breast Procedures Mammography Screening Markel Bilateral Kirstie Hines CNP [address] [place] [address] Specialty Diagnoses / Procedures Referred By Conteric t Referred To Contact Gastroenterology Diagnoses Chronic constipation Kirstie Hines CNP [address] [phone] Dennis Dowling, DO [address] [facility] [address] [place] [address] Referral ID Status Reason Start Date Expiration Date V isits Requested Visits Authorized [id number] Pending Review 08/21/2021 08/21/2022 1 1 Specialty Diagnoses / Procedures Referred By Iman t Referred To Contact Behavorist (Outpatient Social Work) Diagnoses Mild major depression (HCC) Isidro Wakefield MD [address] [address] Referral ID Status Reason Start Date Expiration Date V isits Requested Visits Authorized [id number] Authorized 10/24/2023 10/23/2024 1 1 Chief Complaint cancer follow upcancer follow upfollow upNPV in office today for chronic constipation, pt had radiation and chemo for throat cancer. Abdominal pain, averaging approx 1 BM per week. Patient is taking Florajen probiotic, otc stool softener, otc gentle laxative, miraLAX, sennakot. Patient has had a colonoscopy in the past in [place].cancer follow upfollow upfollow upfollow up cancer Chief Complaint and Reason for Visit Chief Complaint 6 MO - NO LABS LUNG CANCER SCREENING SCREENING, NICOTINE DEPENDENCE ABD MAMM Reason for Visit Regional lymph node metastasis present Tongue cancer Xerostomia due to radiotherapy Encounter for screening for malignant neoplasm of lung History of tobacco use Chief Complaint LUNG CANCER SCREENIN G SCREENING, NICOTINE DEPENDENCE ABD MAMM ABNORMAL MAMMOGRAM Reason for Visit Encounter for screen ing for malignant neoplasm of lung History of tobacco use Chief Complaint PE NON DOT DRUG SCRE EN/ GOJO 6 MO - NO LABS Lung cancer screening SCREENING Reason for Visit Hypothyroidism Regional lymph node metastasis present Tongue cancer Xerostomia due to radiotherapy Encounter for screening for malignant neoplasm of lung History of tobacco use Additional Source Comments Assessment & Plan Note - Felisa Abbott MD - 09/18/2017 9:50 AM EDTAssessment & Plan Note - Felisa Abbott MD - 09/18/2017 9:47 AM EDT Miscellaneous Notes (unrecog nized section and content) Associated Problem(s): Obesity, Class I, BMI 30-34.9 Calorie counting is the basis for all weight loss. Typically weigh or measure everything that you place in your mouth. Pay attention to those things that you think are free. Include the calories associated with anything you drink as well. Most [...] weight loss is minimal without exercise since the body with turn down the BMI or [...] and allow cool down until at least retirement back to the pre exercise hear rate. Therefor if resting heart rate was 70 and your target heart rate was 120. You need to keep moving and work the muscles until you heart rate is below 95 beats per minute. This reduces cramping and the risk of cardiac irritability post exercise. Most weight loss can be obtained best by cycling your calories. By counting the calories and then setting your intake at the minimum needs to maintain your lean body mass you conventional body not to turn down its basal metabolic rate. 80% or more of your total caloric needs are burned due to your basic metabolic rate. So tell your body that you are are dieting and allowing it to turn down your basal metabolic rate sabotages your ability to lose weight. The way to do this and still lose weight his first start a diet at your minimum needs calculated by year estimated lean body mass. Then the first 4 days of every week set your [...] loss or almost 20 pounds per year. Associated Problem(s): Nicotine Dependence Since chantrix has been effective prior will write for a refill. Associated Problem(s): Mass of right side of neck Will look for a potential source of tumor including CT of the abdomen and chest. Lesion can be from the neck itself or from th chest or abdomen The neck. Will also check a mammogram as well as some basic lab work work.in this encounter Associated Problem(s): Depression with anxiety Anxiety and restlessness can be due to a deficiency of a chemical called Serotonin in the brain. If not enough, then the brain uses Norepinephrine. We had a medication that in the higher doses raises Serotonin and blocks the effects of Norepinephrine. Associated Problem(s): Hypothyroidism (acquired) Last TSH was 3.3 ( o.3 -3.7 is normal. Last T4 free was within normal limits as well. Suggest continue Synthroid 50 mcg per day and repeat labs in 6 months. Associated Problem(s): Cold intolerance Consider low thyroid, then low iron or anemia, and lastly anything that Would trigger or indicate cell turnover in the body. I Include radiation , chemo, infection and allergies. Review of recent labs suggest mild iron deficiency but no anemia. Anemia is wether or not you have low hemoglobin or hematocrit. Iron deficiency is if your sell are pale. Take one a day women plus iron.in this encounter Associated Problem(s): Depression with anxiety The hamsters on the wheel suggest that the Cymbalta is helping with the increase in Norepinephrine component, but sleep onset is usually treated with another low dose medication called Trazadone. Associated Problem(s): Hypothyroidism (acquired) If any signs or symptoms similar to the ones you ad prior to starting the thyroid supplement in 08/2017 then we would check the Tsh and T4 free sooner. If not then the normal T4 and TSH should be rechecked in 6 months following the last check in 02/2018. Tsh and T4 to be checked 3 months after change. 6 months after normalization and then yearly thereafter.in this encounter Associated Problem(s): Scalp pain You are having severe scalp pain that you rate higher than a 10. You are wincing when you move your head or talk. You were seen at [facility] ER last night and CT was negative. I will make copies of the ER report and suggest you go to [place] ER with your history of radiation and chemo on your neck so recently. Associated Problem(s): Hypothyroidism (acquired) I want to get a repeat TSH to see if we need to adjust your medication. If your levels are not responding to higher dose of mediation we may look at sending you to an cylinder tester. Associated Problem(s): Depression with anxiety They Cymbalta and trazodone both help with the depression and anxiety but do not seem to be enough. Will send in script for 60 mg of Cymbalta daily, let me know if you have any issues with this medication. [facility] [address] [place] [address] documented in this encounter Associated Problem(s): Scalp pain The antibiotics seem to be helping which makes me believe you had a cellulitis of the scalp even though you had no redness or drainage. If you start to get worse please let me know. Next step I believe would be to evaluate for nerve pain. Associated Problem(s): Hypothyroidism (acquired) Thyroid level is much better with the 100 mcg a day of levothyroxine. I will recheck your labs in 3 months to make sure it is stable. If you continue to have big fluctuations in your labs we may look at doing a thyroid ultrasound and going to endocrinology. documented in this encounter Associated Problem(s): Insomnia Stable on Trazodone. Associated Problem(s): Depression with anxiety [facility] [address] [place], [place] [address] [facility] [address] [place] [address] Associated Problem(s): Hypothyroidism (acquired) You are having no symptoms with a slightly low TSH so we will leave the dose alone. If you develop anxiety, can't sleep, palpitations, hot and sweaty more than usual let me know. documented in this encounter Associated Problem(s): Hypothyroidism (acquired) Will recheck your thyroid levels to make sure everything is stable. Associated Problem(s): Depression with anxiety I want you to keep taking your Cymbalta, we can look at adding a higher dose or adding another medication but I believe we need to try counseling first. You likely have PTSD from the tongue cancer and the aggressive treatments. This has affected every part of your life. Hopefully counseling can help you get in a better mental place. [facility] [address] [place] [address] documented in this encounter Associated Problem(s): Chronic neck pain Will continue to prescribe pain medication as needed for pain, stable. Associated Problem(s): Wellness examination The lab is open here at the office M-F 730am-4pm, you do not need an appointment, just walk in. I would like you to obtain some fasting blood work. This means that you can not have anything to eat or drink for about 8-10 hours before your blood is drawn. The only thing you are allowed to have before your labs is a glass of water or a cup of BLACK coffee. Thank you. Get your labs sometime in the week or so before your next apt. documented in this encounter INFORMATION SOURCE (unrecogn ized section and content) DATE CREATED AUTHOR 11/14/2017 [facility] DATE CREATED AUTHOR AUTHOR'S ORGANIZ ATION 11/01/2018 [facility] DATE CREATED AUTHOR AUTHOR'S ORGANIZ ATION 11/02/2019 [facility] DATE CREATED AUTHOR AUTHOR'S ORGANIZ ATION 07/05/2020 [facility] DATE CREATED AUTHOR AUTHOR'S ORGANIZ ATION 08/23/2021 [facility] nt DATE CREATED AUTHOR AUTHOR'S ORGANIZ ATION 10/31/2021 [facility] DATE CREATED AUTHOR AUTHOR'S ORGANIZ ATION 11/04/2022 [facility] DATE CREATED AUTHOR AUTHOR'S ORGANIZ ATION 06/06/2023 [facility] DATE CREATED AUTHOR AUTHOR'S ORGANIZ ATION 02/10/2024 [facility] DATE CREATED AUTHOR AUTHOR'S ORGANIZ ATION 02/16/2024 [facility] DATE CREATED AUTHOR AUTHOR'S ORGANIZ ATION 03/17/[address] [facility] DATE CREATED AUTHOR AUTHOR'S ORGANIZ ATION 04/17/2024 [facility] DATE CREATED AUTHOR AUTHOR'S ORGANIZ ATION 11/03/2024 [facility] Reason for Visit (unrecogniz ed section and content) Reason Comments Restless Leg Syndrome Anxiety Hypothyroidism Reason Comments Hypothyroidism Reason Comments Follow-up review medications a nd discuss lab orders Mass right side > 1 week painful constant dull ache went to ED yesterday had CT scan Medication Refill trazodone, florajen Reason Comments Follow-up lump to right side o f head Pt reports less pain feeling better Reason Comments Hypothyroidism 4 m fu Depression 4 m fu phq9 score 1 Reason Comments Back Pain Reason Comments Follow-up 4 months for anxiety , IBS, and Hypothyroid Reason Comments Physical Therapy Status Reason Specialty Diagnoses / Procedures Referred By Contact Referred To Contact Pending Review Rehabilitation Diagnoses Back pain, unspecified back location, unspecified back pain laterality, unspecified chronicity Kirstie Hines RECORDS SUPERVISOR [address] [place] [address] [address]hab [address] [place] [address] Status Reason Specialty Diagnoses / Procedures Referred By Contact Referred To Contact Authorized Rehabilitation Diagnoses Back pain, unspecified back location, unspecified back pain laterality, unspecified chronicity Kirstie Hines RECORDS SUPERVISOR [address] [place] [phone] Rehab [address] [place] [address] Status Reason Specialty Diagnoses / Procedures Referred By Contact Referred To Contact Pending Review Rehabilitation Diagnoses Back pain, unspecified back location, unspecified back pain laterality, unspecified chronicity Kirstie Hines, RICCARDO [address] [place] [address] [id number] [place] [address] Reason Comments Depression Thyroid Problem Reason Comments Follow-up 3 mon fu back pain, depression Reason Onset Date Comments Medication Refill 09/13/2020 Reason Onset Date Comments Medication Refill 11/08/2020 Reason Onset Date Comments Medication Refill 04/06/2021 Reason Onset Date Comments Medication Refill 06/14/2021 Reason Comments Follow-up 6 mon fu depression anxiety, having bowel issues hasn't had BM in 3 days Reason Onset Date Comments Medication Refill 09/14/2021 Reason Comments Follow-up C SPRING pt. 4 month f/u, Lab work?, Bruising Reason Onset Date Comments Medication Refill 04/03/2022 Reason Onset Date Comments Medication Refill 06/26/2022 Reason Comments Follow-up 6 mon fu Reason Onset Date Comments Medication Refill 09/21/2022 Reason Onset Date Comments Medication Refill 04/08/2023 Reason Comments Shortness of Breath Pt to ED with c/o SO B, dry cough, sore throat, chills x 3-4 days. Reason Onset Date Comments Medication Refill 07/10/2023 Reason Onset Date Comments Medication Refill 08/19/2023 Reason Onset Date Comments Medication Refill 11/06/2023 Reason Comments Annual Exam Meds refillY Reason Onset Date Comments Medication Refill 03/23/2024 Reason Comments Follow-up Reason Onset Date Comments Medication Refill 05/14/2024 Reason Onset Date Comments Medication Refill 05/29/2024 Care Teams (unrecognized sec tion and content) Machinist Instructor Relationship Specialty Start Date End Date Kirstie Hines CNP PCP - General Nurse Practitioner 09/08/18 Glenroy Gaitan MD Consulting Physician Otolaryngology (ENT) 09/16/17 Machinist Instructor Relationship Specialty Start Date End Date Spring, Kirstie Summers, RECORDS SUPERVISOR [address] [address] PCP - General Nurse Practitioner 09/08/18 Glenroy Gaitan MD [address] [place] [address] [place] [phone] Consulting Physician Otolaryngology (ENT) 09/16/17 Machinist Instructor Relationship Specialty Start Date End Date Spring, Kirstie Summers, RECORDS SUPERVISOR [address] [address] PCP - General Nurse Practitioner 09/08/18 Glenroy Gaitan MD [address] [place] [address] [place], [place] [phone] Consulting Physician Otolaryngology (ENT) 09/16/17 Machinist Instructor Relationship Specialty Start Date End Date Spring, Kirstie Summers, RECORDS SUPERVISOR [address] [address] PCP - General Nurse Practitioner 09/08/18 Glenroy Gaitan MD [address] [address] Consulting Physician Otolaryngology (ENT) 09/16/17 Machinist Instructor Relationship Specialty Start Date End Date Spring, Kirstie Summers RECORDS SUPERVISOR [address] [address] PCP - General Nurse Practitioner 09/08/18 Glenroy Gaitan MD [address] [place] [address] [place] [address] Consulting Physician Otolaryngology (ENT) 09/16/17 Machinist Instructor Relationship Specialty Start Date End Date Spring, Kirstie Summers, RECORDS SUPERVISOR [address] [address] PCP - General Nurse Practitioner 09/08/18 Glenroy Gaitan MD [address] [address] Consulting Physician Otolaryngology (ENT) 09/16/17 Machinist Instructor Relationship Specialty Start Date End Date SpringKirstie, RECORDS SUPERVISOR [address] [address] PCP - General Nurse Practitioner 09/08/18 Glenroy Gaitan MD [address] [address] Consulting Physician Otolaryngology (ENT) 09/16/17 Machinist Instructor Relationship Specialty Start Date End Date Isidro Wakefield MD [address] [address] PCP - General Family Medicine 10/02/21 Glenroy Gaitan MD [address] [address] Consulting Physician Otolaryngology (ENT) 09/16/17 Machinist Instructor Relationship Specialty Start Date End Date Isidro Wakefield MD [address] [address] PCP - General Family Medicine 10/02/21 Glenroy Gaitan MD [address] [address] Consulting Physician Otolaryngology (ENT) 09/16/17 Machinist Instructor Relationship Specialty Start Date End Date Isidro Wakefield MD [address] [place] [phone] PCP - General Family Medicine 10/02/21 Glenroy Gaitan MD [address] [place] [phone] Consulting Physician Otolaryngology (ENT) 09/16/17 Machinist Instructor Relationship Specialty Start Date End Date Isidro Wakefield MD [address] [phone] PCP - General Family Medicine 10/02/21 Glenroy Gaitan MD [address] [place] [phone] Consulting Physician Otolaryngology (ENT) 09/16/17 Machinist Instructor Relationship Specialty Start Date End Date Isidro Wakefield MD [address] [phone] PCP - General Family Medicine 10/02/21 Glenroy Gaitan MD [address] [place] [phone] Consulting Physician Otolaryngology (ENT) 09/16/17 Machinist Instructor Relationship Specialty Start Date End Date Isidro Wakefield MD [address] [place] [phone] PCP - General Family Medicine 10/02/21 Glenroy Gaitan MD [address] [place] [phone] Consulting Physician Otolaryngology (ENT) 09/16/17 Machinist Instructor Relationship Specialty Start Date End Date Isidro Wakefield MD [address] [address] PCP - General Family Medicine 10/02/21 Glenroy Gaitan MD [address] [place] [address] [place] [address] Consulting Physician Otolaryngology (ENT) 09/16/17 Machinist Instructor Relationship Specialty Start Date End Date Isidro Wakefield MD [address] [place], [place] [phone] PCP - General Family Medicine 10/02/21 Glenroy Gaitan MD [address] [place], [place] [phone] Consulting Physician Otolaryngology (ENT) 09/16/17 Team Status: Active Member Role Status Dates Dr. Felisa Abbott MD Family Provider Active YOLANDA MILLER Primary Care Provider Active Team Status: Inactive Member Role Status Dates YOLANDA MILLER Primary Care Provider, Referri ng Provider Active Dr. Gloria Goode MD Attending Provider Active Team Status: Inactive Member Role Status Dates YOLADNA MILLER Primary Care Provider, Referri ng Provider Active Ayesha Figueredo NP-C Attending Provider Active Team Status: Inactive Member Role Status Dates YOLANDA MILLER Primary Care Provider Active Bette Luevano NP, COMMODITY MANAGER-C Attending Provider, Referring Provider Active Team Status: Inactive Member Role Status Dates YOLANDA MILLER Primary Care Provider Active Dr. Gloria Goode MD Attending Provider, Referrin g Provider Active Machinist Instructor Relationship Specialty Start Date End Date Isidro Wakefield MD [address] [place], [place] [phone] PCP - General Family Medicine 10/02/21 Glenroy Gaitan MD [address] [place] [phone] Consulting Physician Otolaryngology (ENT) 09/16/17 Machinist Instructor Relationship Specialty Start Date End Date Isidro Wakefield MD [address] [place] [address] PCP - General Family Medicine 10/02/21 Glenroy Gaitan MD [address] [address] Consulting Physician Otolaryngology (ENT) 09/16/17 Machinist Instructor Relationship Specialty Start Date End Date Spring, Kirstie Ley APRN-RECORDS SUPERVISOR [address] [phone] PCP - General 01/26/20 Machinist Instructor Relationship Specialty Start Date End Date Spring, Kirstie Ley SENIOR SALES ASSOCIATE-RECORDS SUPERVISOR [address] [phone] PCP - General 01/26/20 Machinist Instructor Relationship Specialty Start Date End Date Isidro Wakefield MD [address] [place] [address] PCP - General Family Medicine 10/02/21 Isidro Wakefield MD [address] [place] [address] PCP - [facility] Provider - [employer] 03/27/23 05/26/50 Glenroy Gaitan MD [address] [address] Consulting Physician Otolaryngology (ENT) 09/16/17 Machinist Instructor Relationship Specialty Start Date End Date Isidro Wakefield MD [facility] [address] [address] PCP - General Family Medicine 10/02/21 Isidro Wakefield MD [facility] [address] [address] PCP - TREY Attributed Provider - [employer] 03/27/23 05/26/50 Glenroy Gaitan MD [address] [place] [address] Consulting Physician Otolaryngology (ENT) 09/16/17 Machinist Instructor Relationship Specialty Start Date End Date Isidro Wakefield MD [address] [place] [address] PCP - General Family Medicine 10/02/21 Isidro Wakefield MD [address] [place] [address] PCP - [facility] Attributed Provider - [employer] 03/27/23 05/26/50 Glenroy Gaitan MD [address] [place] [address] Consulting Physician Otolaryngology (ENT) 09/16/17 Machinist Instructor Relationship Specialty Start Date End Date Isidro Wakefield MD [facility] [address] [address] PCP - General Family Medicine 10/02/21 Isidro Wakefield MD [facility] [place] [phone] PCP - TREY Attributed Provider - [employer] 03/27/23 05/26/50 Glenroy Gaitan MD [address] [place] [address] Consulting Physician Otolaryngology (ENT) 09/16/17 Machinist Instructor Relationship Specialty Start Date End Date Isidro Wakefield MD [facility] [place] [phone] PCP - General Family Medicine 10/02/21 Isidro Wakefield MD [address] [place], [place] [phone] PCP - [facility] Attributed Provider - [employer] 03/27/23 05/26/50 Glenroy Gaitan MD [address] [place] [address] Consulting Physician Otolaryngology (ENT) 09/16/17 Gloria Goode MD [address] [place] [address] Medical Oncology 10/25/23 Machinist Instructor Relationship Specialty Start Date End Date Isidro Wakefield MD [address] [place] [address] PCP - General Family Medicine 10/02/21 Isidro Wakefield MD [address] [address] PCP - [facility] Attributed Provider - [employer] 03/27/23 05/26/50 Glenroy Gaitan MD [address] [place] [address] Consulting Physician Otolaryngology (ENT) 09/16/17 Gloria Goode MD [address] [place] [phone] Medical Oncology 10/25/23 Machinist Instructor Relationship Specialty Start Date End Date Isidro Wakefield MD [address] [place] [address] PCP - General Family Medicine 10/02/21 Isidro Wakefield MD [address] [place] [address] PCP - TREY Attributed Provider - [employer] 03/27/23 05/26/50 Glenroy Gaitan MD [address] [place] [address] Consulting Physician Otolaryngology (ENT) 09/16/17 Gloria Goode MD [address] [place] [phone] Medical Oncology 10/25/23 Machinist Instructor Relationship Specialty Start Date End Date Isidro Wakefield MD [facility] [address] [address] PCP - General Family Medicine 10/02/21 Isidro Wakefield MD [facility] [place] [phone] PCP - TREY Attributed Provider - [employer] 03/27/23 05/26/50 Glenroy Gaitan MD [address] [place] [address] Consulting Physician Otolaryngology (ENT) 09/16/17 Gloria Goode MD [address] [place] [address] Medical Oncology 10/25/23 Machinist Instructor Relationship Specialty Start Date End Date Isidro Wakefield MD [address] [place] [address] PCP - General Family Medicine 10/02/21 Isidro Wakefield MD [address] [place], [place] [phone] PCP - TREY Attributed Provider - [employer] 03/27/23 05/26/50 Glenroy Gaitan MD [address] [place] [phone] Consulting Physician Otolaryngology (ENT) 09/16/17 Gloria Goode MD [address] [place] [address] Medical Oncology 10/25/23 Machinist Instructor Relationship Specialty Start Date End Date Kirstie Hines APRN-RECORDS SUPERVISOR PCP - General 01/26/20 Machinist Instructor Relationship Specialty Start Date End Date Isidro Wakefield MD [address] [address] PCP - General Family Medicine 10/02/21 Isidro Wakefield MD [facility] [address] [address] PCP - TREY Attributed Provider - [employer] 03/27/23 05/26/50 Glenroy Gaitan MD [address] [place] [address] Consulting Physician Otolaryngology (ENT) 09/16/17 Gloria Goode MD [address] [place] [phone] Medical Oncology 10/25/23 Machinist Instructor Relationship Specialty Start Date End Date Isidro Wakefield MD [facility] [address] [address] PCP - General Family Medicine 10/02/21 Isidro Wakefield MD [facility] [address] [address] PCP - TREY Attributed Provider - [employer] 03/27/23 05/26/50 Glenroy Gaitan MD [address] [place] [address] Consulting Physician Otolaryngology (ENT) 09/16/17 Gloria Goode MD [address] [place] [address] Medical Oncology 10/25/23 <item> Privacy Markings (unrecogniz ed section and content) Section Author: Cinda Morales PROHIBITION ON REDISCLOSURE OF CONFIDENTIAL INFORMATION This notice accompanies a disclosure of information concerning a client made to you with the consent of such client. Goals (unrecognized section and content) Goals may be documented in a n alternate sectionGoals may be documented in an alternate sectionGoals may be documented in an alternate sectionGoals may be documented in an alternate section Scheduled Active and Recently Administ ered Medications (unrecognized section and content) Medication Order 05/31/2023 06/01/2023 06/02/2023 albuterol 90 mcg/actuation inhaler 2 puff 2 puff, inhalation, Once, On 06/02/23 at 1825, For 1 dose, Shake well before use. 1825 (Due) ipratropium-albuteroL (Duo-Neb) 0.5-2.5 mg/3 mL nebulizer solution 6 mL (COMPLETED) 6 mL, nebulization, Once, On 06/02/23 at 1615, For 1 dose 1738 (Given - Provid er: Holly Chappell, KINDERGARTEN TUTOR) FOR RECORDS PERTAINING TO PATIENTS WHO ARE OR HAVE BEEN ENROLLED IN A CHEMICAL DEPENDENCY/SUBSTANCEABUSE PROGRAM, SOME INFORMATION MAY BE OMITTED. This clinical summary was aggregated from multiple sources. Caution should be exercised in using it in the provision of clinical care. This summary normalizes information from multiple sources, and as a consequence, information in this document may materially change the coding, format and clinical context of patient data. In addition, data may be omitted in some cases. CLINICAL DECISIONS SHOULD BE BASED ON THE PRIMARY CLINICAL RECORDS. [facility]. provides no warranty or guarantee of the accuracy or completeness of information in this document.
[2024-12-22 02:18] VITALS: BP 118/83; PULSE 80; RESP 14; O2SAT 100
[2024-12-22] MEDS: 0.9% Normal Saline (500mL Bag) 500 ML 999 ML IV (02:23)
[2024-12-22 02:35] LABS: Anion Gap 14 (5-15); BUN 16 mg/dL (4-19); BUN/Creat Ratio 19.3 RATIO (10-20); Calcium,Total 9.1 mg/dL (7.6-11.0); Carbon Dioxide 24.5 mmol/L (21.0-32.0); Chloride 102 mmol/L (98-108); Estimated Creatinine Clearance 79.09 ml/min (50-250); Glucose 180 mg/dL (70-99); Potassium 4.0 mmol/L (3.3-5.1)
[2024-12-22 03:00] VITALS: BP 113/68; PULSE 77; RESP 18; O2SAT 100
[2024-12-22 03:22] LABS: Mucous, Urine 0 SEEN /hpf (<or=2+)
[2024-12-22 03:24] LABS: Color, Urine Yellow (Yellow); Glucose, Dipstick Normal (Normal); Ketone-Dipstick 5 mg/dl (Negative); Leukocyte Esterase-Dipstick 500 /ul (Negative); Nitrite-Dipstick Negative (Negative); Occult Blood-Urine 25 /ul (Negative); Protein-Dipstick 30 mg/dl (Negative); Specific Gravity, Urine 1.025 (1.002-1.030); Urine Bilirubin Dipstick Negative (Negative)
[2024-12-22 03:33] LABS: Red Blood Cells-Urine 0-5 SEEN /hpf (0-5); Squamous Epithelial Cells - UA 0-5 SEEN /hpf (5-10)
[2024-12-22 03:53] VITALS: BP 124/74; PULSE 80; RESP 18; TEMP 37; O2SAT 99
[2024-12-22 04:00] VITALS: BP 109/72; PULSE 84; RESP 16; O2SAT 100
[2024-12-22 06:29] LABS: Reflex Lactate? Y
== END 2024-12-22 04:32 | disposition home or self-care (01) ==
PROVIDERS: Emergency Provider Emergency Medicine; PCP Nurse Practitioner Family; Visit Provider Emergency Medicine
DX: R56.9 Unspecified convulsions (principal); N39.0 Urinary tract infection, site not specified; Z87.891 Personal history of nicotine dependence; Z85.89 Personal history of malignant neoplasm of other organs and systems; Z92.21 Personal history of antineoplastic chemotherapy; Z92.3 Personal history of irradiation; E03.9 Hypothyroidism, unspecified; Z79.890 Hormone replacement therapy; Z90.49 Acquired absence of other specified parts of digestive tract; Z90.710 Acquired absence of both cervix and uterus; R50.9 Fever, unspecified
CPT/HCPCS: 71046; 80048; 81001; 83605; 85025; 87086; 87088; 87631; 96365; 99285; A4216

== ENCOUNTER → 2025-02-09 | Outpatient (CLI) | payer BC, SELFPAY ==
[2018-06-30 13:58] VITALS: BMI 34.3
--- NOTE | 2025-02-09 12:00 | BI_ITS ---
EXAM: SCRN MAMM (CAD)W/MAYCO BILAT DATE: 02/09/2025 CLINICAL HISTORY: F, Age 54 y/o , SCREENING TECHNIQUE: Procedure Code: [id number] Modality: MG Procedure: SCRN MAMM (CAD)W/MAYCO BILAT COMPARISON: Prior exam(s) were compared FINDINGS: TISSUE DENSITY: The breasts are heterogeneously dense, which may obscure small masses. Bilateral Breast Mammographic Findings: No suspicious masses, calcifications or other abnormalities are identified. BI/SCRN MAMM (CAD)W/MAYCO BILAT IMPRESSION: No mammographic evidence of malignancy. OVERALL FINAL ASSESSMENT BI-RADS 1: NEGATIVE. RECOMMENDATION: Routine annual follow-up in 1 Year A letter with findings and recommendations will be mailed to the patient. Reading Location: [id number]
--- NOTE | 2025-02-09 12:32 | CT_ITS ---
PROCEDURE: LOW DOSE CT LUNG SCREENING 02/09/2025 REASON FOR EXAM: LUNG CANCER SCREENING Former smoker. Patient has smoked 1-1/2 pack per day for several years. History of oral cancer. TECHNIQUE: Procedure Code: [id number] Modality: CT Procedure: LOW DOSE CT LUNG SCREENING Coronal and Sagittal reconstruction series were provided. One or more dose reduction techniques were used (e.g., Automated exposure control, adjustment of the mA and/or kV according to patient size, use of iterative reconstruction technique). REFERENCE LINK: [employer] Lung-RADS RADIATION DOSE SUMMARY: CTDlvol: 3.02 mGy DLP: 94.4 mGycm COMPARISON: Prior study dated February 04, 2024. FINDINGS: PULMONARY NODULES: (Only nodules >3mm are reported) Nodules described below are on series 1 unless otherwise specified. Pulmonary Nodules: No suspicious nodules are seen. Hardware:None Lymph Nodes:No suspicious lymph nodes are present. Heart and Vasculature:The heart is nonenlarged. Coronary Artery Calcifications: Absent Lungs and Airways: Stable mild scarring in the anterior medial aspect of the right middle lobe. Pleura:No pleural effusion. Upper Abdomen:Unremarkable Bones:Degenerative changes of the thoracic spine. CT/Low Dose CT Lung Screening IMPRESSION: No suspicious pulmonary nodule is seen. Coronary artery calcification (CAC) is is absent Lung-RADS Category: 2 BENIGN (BASED ON IMAGING FEATURES OR INDOLENT BEHAVIOR). RECOMMEND 12-MONTH SCREENING LDCT. Other Significant Findings: Reading Location: [place] [address]
== END | disposition home or self-care (01) ==
PROVIDERS: PCP Nurse Practitioner Family; Referring Provider Nurse Practitioner Family; Visit Provider Nurse Practitioner Family
DX: Z12.31 Encounter for screening mammogram for malignant neoplasm of breast (principal); Z12.2 Encounter for screening for malignant neoplasm of respiratory organs; Z87.891 Personal history of nicotine dependence
CPT/HCPCS: 71271; 77063; 77067